=== PATIENT | male | born 1965 | race Caucasian/White ===

== ENCOUNTER 2016-12-27 07:05 | Observation (INO) | payer SELFPAY ==
--- NOTE | 2016-12-27 08:35 | C.PDOC ---
History Of Present Illness 48-year-old male, is brought to the emergency department by EMS with complaints of public intoxication. Patient is unable to provide a Hx due to intoxication. Chief Complaint (Nursing): Substance Abuse History Per: EMS History/Exam Limitations: intoxication Current Symptoms Are (Timing): Still Present Past Medical History Reviewed: Historical Data, Nursing Documentation, Vital Signs Vital Signs: Last Vital Signs Temp Pulse 78 12/27/16 12:30 Resp 20 12/27/16 12:30 BP 130/91 H 12/27/16 12:30 Pulse Ox 98 12/27/16 12:30 Family History: States: Unknown Family Hx - Social History Hx Alcohol Use: Yes Hx Substance Use: No - Immunization History Hx Tetanus Toxoid Vaccination: No Hx Influenza Vaccination: No Hx Pneumococcal Vaccination: No Review Of Systems Review Of Systems: ROS cannot be obtained secondary to pt's inabilty to answer questions. Physical Exam - Physical Exam Appears: Non-toxic, No Acute Distress, Other (Intoxicated. ETOH on breath) Head: Atraumatic, Normacephalic Respiratory: No Accessory Muscle Use Extremity: Normal ROM Neurological/Psych: Oriented x3, Normal Speech ED Course And Treatment O2 Sat by Pulse Oximetry: 100 Medical Decision Making Medical Decision Makinpm: Patient awake and alert. Will discharge with follow up instructions. Disposition - Disposition Disposition: HOME/ ROUTINE Disposition Time: 17:00 Condition: IMPROVED - Clinical Impression Clinical Impression: Alcohol intoxication - Scribe Statement The provider has reviewed the documentation as recorded by the Scribclifton Joel All medical record entries made by the Scribe were at my direction and personally dictated by me. I have reviewed the chart and agree that the record accurately reflects my personal performance of the history, physical exam, medical decision making, and the department course for this patient. I have also personally directed, reviewed, and agree with the discharge instructions and disposition.
[2016-12-27 17:05] VITALS: O2SAT 100
[2016-12-27 17:35] VITALS: BP 125/82; PULSE 74; RESP 18; TEMP 97.4
== END 2016-12-27 17:05 | disposition home or self-care (01) ==
LOC: C.ER 07:05 → C.9OBSV 08:24 → EDBD 08:24
PROVIDERS: ADMIT Emergency Medicine; ATTEND Emergency Medicine
DX: F10.129 Alcohol abuse with intoxication, unspecified (principal)
CPT/HCPCS: 82948; 99284; G0378

== ENCOUNTER 2017-07-22 18:21 | Observation (INO) | payer SELFPAY ==
[2017-07-22 18:28] VITALS: BMI 28.3
[2017-07-22] MEDS ORDERED: Lidocaine 1% Inj (20ml) INFIL ONE (19:30)
[2017-07-22] MEDS ORDERED: Lidocaine 1% Inj (20ml) ONE (19:45)
[2017-07-22] MEDS ORDERED: Tetanus/Diphtheria Toxoids 0.5 ml Syringe IM ONE (19:45)
--- NOTE | 2017-07-22 20:26 | CT ---
EXAM: CT Head Without Intravenous Contrast EXAM DATE/TIME: Exam ordered 07/22/2017 7:28 PM CLINICAL HISTORY: 52 years old, male; Injury or trauma; Fall; Initial encounter; Abrasion; Head, generalized and jaw or chin; Additional info: R/O ich TECHNIQUE: Axial computed tomography images of the head/brain without intravenous contrast. All CT scans at this facility use one or more dose reduction techniques, viz.: automated exposure control; ma/kV adjustment per patient size (including targeted exams where dose is matched to indication; i.e. head); or iterative reconstruction technique. Coronal and sagittal reformatted images were created and reviewed. COMPARISON: No relevant prior studies available. FINDINGS: Brain: A focal area of high density measuring 1.1 x 0.5 x 1 cm is noted in the parafalcine region anteriorly immediately superior to the genu of the corpus callosum. This may represent a small subdural hematoma. Ventricles: Unremarkable. No ventriculomegaly. Bones/joints: Unremarkable. No acute fracture. Soft tissues: Unremarkable. Sinuses: Unremarkable as visualized. No acute sinusitis. Mastoid air cells: Unremarkable as visualized. No mastoid effusion. IMPRESSION: 1. Small parafalcine subdural hematoma Images were attached to this report and are available at [email or web address]
--- NOTE | 2017-07-22 20:34 | CT ---
EXAM: CT Orbits Without Intravenous Contrast EXAM DATE/TIME: Exam ordered 07/22/2017 7:28 PM CLINICAL HISTORY: 52 years old, male; Injury or trauma; Fall; Initial encounter; Abrasion; Jaw; Bilateral; Additional info: R/O ich and FX TECHNIQUE: Axial computed tomography images of the orbits without intravenous contrast. All CT scans at this facility use one or more dose reduction techniques, viz.: automated exposure control; ma/kV adjustment per patient size (including targeted exams where dose is matched to indication; i.e. head); or iterative reconstruction technique. Coronal and sagittal reformatted images were created and reviewed. COMPARISON: No relevant prior studies available. FINDINGS: Orbits: Unremarkable. Sinuses: Unremarkable. No air-fluid levels. Bones/joints: No acute fracture. Soft tissues: There is a soft tissue laceration noted anterior to the mandibular symphysis. Dental: There several missing teeth. There is an air-containing heterogeneous structure noted inside the lower lip anterior to the mandibular alveolar ridge at the level the symphysis. This could represent packing material. Clinical correlation suggested. IMPRESSION: Soft tissue laceration noted over the chin. No fracture. See above.
[2017-07-22 21:23] LABS: BASO # 0.1 K/uL (0.0-0.2); BASO % 1.3 % (0.0-2.0); CHLORIDE 99 mmol/L (98-107); EOS % 0.9 % (0.0-4.0); HEMATOCRIT 35.3 % (35.0-51.0); LYMPH # 1.2 K/uL (1.0-4.3); LYMPH % 30.5 % (20.0-40.0); MEAN CELL VOLUME 92.2 fL (80.0-94.0); MEAN CORPUSCULAR HEMOGLOBIN 31.3 pg (27.0-31.0); MEAN CORPUSCULAR HGB CONC 33.9 g/dL (33.0-37.0); MEAN PLATELET VOLUME 7.6 fL (7.2-11.7); MONO # 0.5 K/uL (0.0-0.8); MONO % 13.8 % (0.0-10.0); NRBC % 0.1 % (0.0-2.0)
[2017-07-22 21:24] LABS: POTASSIUM 3.8 mmol/L (3.6-5.2); SODIUM 136 mmol/L (132-148)
[2017-07-22 21:26] LABS: ALB/GLOB RATIO 1.6 (1.0-2.1); ALKALINE PHOSPHATASE 73 U/L (38-126); AST/SGOT 144 U/L (17-59); BILIRUBIN,TOTAL 0.7 mg/dL (0.2-1.3); CARBON DIOXIDE 24 mmol/L (22-30); GFR AFRICAN-AMERICAN > 60; TOTAL PROTEIN 7.4 g/dL (6.3-8.3)
[2017-07-22 21:27] LABS: ALCOHOL SERUM 59 mg/dl (0-10); ALT/SGPT 227 U/L (21-72); BLOOD UREA NITROGEN 15 mg/dL (9-20); CALCIUM 9.1 mg/dl (8.6-10.4); GLUCOSE,RANDOM 96 mg/dL (75-110)
--- NOTE | 2017-07-22 22:36 | C.PDOC ---
History Of Present Illness 52 y/o male presents to ED for evaluation s/p falling and sustaining laceration to chin. Patient admits to drinking 1/2 pint of Vodka today and does not recall most of event but knows he fell. Patient denies loc, chest pain, sob, vision changes, abdominal pain or any other complaints at this time. Chief Complaint (Nursing): Abnormal Skin Integrity History Per: Patient History/Exam Limitations: no limitations Onset/Duration Of Symptoms: Hrs Current Symptoms Are (Timing): Still Present Past Medical History Reviewed: Historical Data, Nursing Documentation, Vital Signs Vital Signs: Last Vital Signs Temp 97.4 F L 07/22/17 18:28 Pulse 77 07/23/17 02:11 Resp 18 07/23/17 02:11 BP 132/72 07/23/17 02:11 Pulse Ox 95 07/23/17 02:11 - Medical History PMH: Seizures Surgical History: No Surg Hx Family History: States: No Known Family Hx - Social History Hx Alcohol Use: Yes Hx Substance Use: No - Immunization History Hx Tetanus Toxoid Vaccination: No Hx Influenza Vaccination: No Hx Pneumococcal Vaccination: No Review Of Systems Constitutional: Negative for: Fever, Chills Eyes: Negative for: Vision Change Respiratory: Negative for: Cough, Shortness of Breath Gastrointestinal: Negative for: Abdominal Pain Musculoskeletal: Negative for: Back Pain Skin: Negative for: Rash Physical Exam - Physical Exam Appears: Non-toxic, No Acute Distress Skin: Normal Color, Warm, Dry, No Rash Head: Laceration (3cm. No active bleeding ) Eye(s): bilateral: Normal Inspection, PERRL, EOMI Oral Mucosa: Moist Neck: Normal ROM, Supple Back: No CVA Tenderness Extremity: Normal ROM, Capillary Refill (<2 seconds) Neurological/Psych: Oriented x3, Normal Motor, Normal Sensation ED Course And Treatment - Laboratory Results Result Diagrams: 07/23/17 05:56 07/23/17 05:56 O2 Sat by Pulse Oximetry: 98 (RA) Laceration - Laceration Repair chin Wound Length (In cm): 3cm Description Of Wound: Linear Wound Cleansed With: Betadine, Sterile Saline Anesthesia: Lidocaine 1% Wound Examination: Irrigated With Saline Wound Closure: Suture (7) Suture Technique And Material Used: Interrupted, Nylon (5-O) Medical Decision Making Medical Decision Making: [facility] called for CT finding Spoke to Dr. Avelar (Neurosurgeon) and agreed no surgical intervention Recalled [facility] and spoke to radiologist, states Subdural hematoma is seen on series 2 images 19 and 20 , series 601 image 118. Spoke to admit patient to Tele for observation and monitoring Disposition - Disposition Disposition Time: 21:45 Condition: FAIR - Clinical Impression Clinical Impression: Skin laceration, Subdural hematoma - Scribe Statement The provider has reviewed the documentation as recorded by the Khurram Valencia All medical record entries made by the Khurram were at my direction and personally dictated by me. I have reviewed the chart and agree that the record accurately reflects my personal performance of the history, physical exam, medical decision making, and the department course for this patient. I have also personally directed, reviewed, and agree with the discharge instructions and disposition.
--- NOTE | 2017-07-22 23:45 | CP.PCM.HP ---
<Delfina Schultz - Last Filed: 07/23/17 03:24> History of Present Illness - History of Present Illness History of Present Illness: HPI: 52 year old male presents to the ED due to a fall with alcohol intoxication. Patient stated he did not remember falling and hitting his head. Patient stated he did loose consciousness. Patient denies nausea or vomiting. Patient had a laceration on his chin which was sutured prior to seeing him. Patient complains of left hand pain that is made worse by opening and closing hand. Patient was uncooperative to obtain a full review of systems or full medical history. Past Medical History: unobtainable Medications: unobtainable Allergies: unobtainable Past Surgical History: unobtainable Social History: Patient admits to drinking 1/2 pint of vodka but did not elaborate how often. Patient denies tobacco use. Present on Admission - Present on Admission Any Indicators Present on Admission: No Review of Systems - Review of Systems Systems not reviewed;Unavailable: Intoxicated - Musculoskeletal Additional comments: left hand pain Past Patient History - Past Social History Smoking Status: Former Smoker - NEUROLOGICAL Hx Seizures: Yes - PSYCHIATRIC Hx Substance Use: No - SURGICAL HISTORY Hx Surgeries: Yes Other/Comment: Left inguinal hernia sx Meds Allergies/Adverse Reactions: Allergies Allergy/AdvReac Type Severity Reaction Status Date / Time No Known Allergies Allergy Verified 07/22/17 18:31 Physical Exam - Constitutional Appears: Toxic - Head Exam Head Exam: NORMAL INSPECTION, NORMOCEPHALIC. absent: ATRAUMATIC - Eye Exam Eye Exam: EOMI, Normal appearance, PERRL Pupil Exam: NORMAL ACCOMODATION - ENT Exam ENT Exam: Mucous Membranes Moist Additional comments: chin laceration - Respiratory Exam Respiratory Exam: Clear to Auscultation Bilateral, NORMAL BREATHING PATTERN - Cardiovascular Exam Cardiovascular Exam: REGULAR RHYTHM, RRR, +S1, +S2 - GI/Abdominal Exam GI & Abdominal Exam: Normal Bowel Sounds, Soft. absent: Tenderness - Extremities Exam Extremities exam: Positive for: tenderness (left hand was tender - contusion). Negative for: normal inspection (bilateral hands had contusion), pedal edema - Neurological Exam Neurological exam: Alert, Oriented x3 - Psychiatric Exam Psychiatric exam: Agitated - Skin Skin Exam: Abrasion (contusions on bilateral hands ), Dry, Intact, Normal Color , Warm Additional comments: chin lacerations - sutures were clean, dry and intact Results - Vital Signs Recent Vital Signs: Last Vital Signs Temp 97.4 F L 07/22/17 18:28 Pulse 77 07/22/17 22:21 Resp 18 07/22/17 22:21 BP 146/94 H 07/22/17 22:21 Pulse Ox 98 07/22/17 22:36 - Labs Result Diagrams: 07/22/17 21:05 07/22/17 21:05 Labs: Laboratory Results - last 24 hr 07/22/17 07/22/17 07/22/17 21:05 21:05 21:05 WBC 4.0 L RBC 3.83 L Hgb 12.0 Hct 35.3 MCV 92.2 MCH 31.3 H MCHC 33.9 RDW 18.0 H Plt Count 129 L MPV 7.6 Neut % (Auto) 53.5 Lymph % (Auto) 30.5 Gaston % (Auto) 13.8 H Eos % (Auto) 0.9 Baso % (Auto) 1.3 Neut # 2.1 Lymph # 1.2 Gaston # 0.5 Eos # 0.0 Baso # 0.1 Differential Comment PT 11.1 INR 1.0 APTT 30 Sodium 136 Potassium 3.8 Chloride 99 Carbon Dioxide 24 Anion Gap 17 BUN 15 Creatinine 0.7 L Est GFR ( Amer) > 60 Est GFR (Non-Af Amer) > 60 Random Glucose 96 Calcium 9.1 Total Bilirubin 0.7 AST 144 H ALT 227 H Alkaline Phosphatase 73 Total Protein 7.4 Albumin 4.6 Globulin 2.8 Albumin/Globulin Ratio 1.6 Alcohol, Quantitative 59 H Blood Type Antibody Screen 07/22/17 21:05 WBC RBC Hgb Hct MCV MCH MCHC RDW Plt Count MPV Neut % (Auto) Lymph % (Auto) Gaston % (Auto) Eos % (Auto) Baso % (Auto) Neut # Lymph # Gaston # Eos # Baso # Differential Comment PT INR APTT Sodium Potassium Chloride Carbon Dioxide Anion Gap BUN Creatinine Est GFR ( Amer) Est GFR (Non-Af Amer) Random Glucose Calcium Total Bilirubin AST ALT Alkaline Phosphatase Total Protein Albumin Globulin Albumin/Globulin Ratio Alcohol, Quantitative Blood Type B NEGATIVE Antibody Screen Negative Assessment & Plan - Assessment and Plan (Free Text) Assessment: 1.) Head Trauma s/p Fall - r/o subdural hematoma - Head CT: Small parafalcine subdural hematoma - was read by 2 radiologists - f/u repeat MRI to confirm subdural hematoma - Orbit CT: Soft tissue laceration noted over the chin. No fracture. - Consult Neuro Surgery: Dr. Avelar --> help appreciated - Neuro Checks 2.) Alcohol intoxication - [facility] protocol - Lorazepam taper for alcohol withdrawal - Alcohol Serum: 59 - NPO - N/S w@75cc/hr with multivitamins, B1, folic acid - f/u b12, thiamine, folic acid 3.) Elevated Liver Enzymes possibly secondary to Alcohol Abuse - AST/ALT: 144/277 - Monitor 4.) Left Hand pain - contusion s/p fall - f/u with x-ray of hand 5.) Prophylaxis - VTE contraindication - due to subdural hematoma - Pepcid 20mg daily - SCDs Case discussed with Dr. Adriana Schultz PGY-1 <Carroll Wright - Last Filed: 07/23/17 04:20> Results - Vital Signs Recent Vital Signs: Last Vital Signs Temp 97.4 F L 07/22/17 18:28 Pulse 77 07/23/17 02:11 Resp 18 07/23/17 02:11 BP 132/72 07/23/17 02:11 Pulse Ox 95 07/23/17 02:11 - Labs Result Diagrams: 07/22/17 21:05 07/22/17 21:05 Labs: Laboratory Results - last 24 hr 07/22/17 07/22/17 07/22/17 21:05 21:05 21:05 WBC 4.0 L RBC 3.83 L Hgb 12.0 Hct 35.3 MCV 92.2 MCH 31.3 H MCHC 33.9 RDW 18.0 H Plt Count 129 L MPV 7.6 Neut % (Auto) 53.5 Lymph % (Auto) 30.5 Gaston % (Auto) 13.8 H Eos % (Auto) 0.9 Baso % (Auto) 1.3 Neut # 2.1 Lymph # 1.2 Gaston # 0.5 Eos # 0.0 Baso # 0.1 Differential Comment PT 11.1 INR 1.0 APTT 30 Sodium 136 Potassium 3.8 Chloride 99 Carbon Dioxide 24 Anion Gap 17 BUN 15 Creatinine 0.7 L Est GFR ( Amer) > 60 Est GFR (Non-Af Amer) > 60 Random Glucose 96 Calcium 9.1 Total Bilirubin 0.7 AST 144 H ALT 227 H Alkaline Phosphatase 73 Total Protein 7.4 Albumin 4.6 Globulin 2.8 Albumin/Globulin Ratio 1.6 Alcohol, Quantitative 59 H Blood Type Antibody Screen 07/22/17 21:05 WBC RBC Hgb Hct MCV MCH MCHC RDW Plt Count MPV Neut % (Auto) Lymph % (Auto) Gaston % (Auto) Eos % (Auto) Baso % (Auto) Neut # Lymph # Gaston # Eos # Baso # Differential Comment PT INR APTT Sodium Potassium Chloride Carbon Dioxide Anion Gap BUN Creatinine Est GFR ( Amer) Est GFR (Non-Af Amer) Random Glucose Calcium Total Bilirubin AST ALT Alkaline Phosphatase Total Protein Albumin Globulin Albumin/Globulin Ratio Alcohol, Quantitative Blood Type B NEGATIVE Antibody Screen Negative Assessment & Plan - Date & Time Date: 07/23/17 (I have seen and examined the patient. I agree with the findings and plan of care as documented by Dr. Schultz. Patient s/p head trauma from fall. Subdural hematoma noted on CT head. Dr Avelar called by ED. MRI brain in . Neurochecks. [facility] protocol for alcohol abuse. Hold for sedation. Monitor for acute changes.) Time: 04:18 Attending/Attestation - Attestation I have personally seen and examined this patient.: Yes I have fully participated in the care of the patient.: Yes I have reviewed all pertinent clinical information: Yes
[2017-07-23] MEDS ORDERED: Multivitamin (MVI) 10 ML, Thiamine 100 MG, Folic Acid 1 MG in Sodium Chloride 0.9% 1,00... IV ONE (00:25)
[2017-07-23 06:02] LABS: BASO # 0.1 K/uL (0.0-0.2); BASO % 1.5 % (0.0-2.0); EOS # 0.1 K/uL (0.0-0.7); EOS % 1.1 % (0.0-4.0); HEMATOCRIT 33.5 % (35.0-51.0); LYMPH # 1.5 K/uL (1.0-4.3); LYMPH % 30.9 % (20.0-40.0); MEAN CELL VOLUME 91.8 fL (80.0-94.0); MEAN CORPUSCULAR HEMOGLOBIN 31.3 pg (27.0-31.0); MEAN CORPUSCULAR HGB CONC 34.1 g/dL (33.0-37.0); MEAN PLATELET VOLUME 7.5 fL (7.2-11.7); MONO # 0.9 K/uL (0.0-0.8); MONO % 19.6 % (0.0-10.0); NRBC % 0.1 % (0.0-2.0); RED CELL DISTRIBUTION WIDTH 17.8 % (11.5-14.5); WHITE BLOOD COUNT 4.8 K/uL (4.8-10.8)
[2017-07-23 06:19] LABS: CHLORIDE 102 mmol/L (98-107)
[2017-07-23 06:20] LABS: SODIUM 135 mmol/L (132-148)
[2017-07-23 06:21] LABS: POTASSIUM 3.6 mmol/L (3.6-5.2)
[2017-07-23 06:23] LABS: ALB/GLOB RATIO 1.1 (1.0-2.1); ALKALINE PHOSPHATASE 64 U/L (38-126); ALT/SGPT 198 U/L (21-72); AST/SGOT 110 U/L (17-59); BILIRUBIN,TOTAL 0.7 mg/dL (0.2-1.3); BLOOD UREA NITROGEN 12 mg/dL (9-20); CARBON DIOXIDE 23 mmol/L (22-30); GFR AFRICAN-AMERICAN > 60; GLUCOSE,RANDOM 94 mg/dL (75-110); PHOSPHOROUS 3.6 mg/dL (2.5-4.5); TOTAL PROTEIN 7.4 g/dL (6.3-8.3)
[2017-07-23 06:24] LABS: CALCIUM 8.8 mg/dl (8.6-10.4); MAGNESIUM 1.8 mg/dL (1.6-2.3)
[2017-07-23 07:31] LABS: FOLATE > 20.0 ng/mL
[2017-07-23 12:04] VITALS: TEMP 97.8
--- NOTE | 2017-07-23 13:47 | MRI ---
PROCEDURE: MRI of the brain dated 07/23/2017 HISTORY: Repeat; r/o subdural hematoma COMPARISON: Comparison made with CT scan brain dated 07/18/2017. TECHNIQUE: Multiplanar, multisequence MR images of the brain were obtained without intravenous contrast enhancement. FINDINGS: HEMORRHAGE: No acute parenchymal, subarachnoid or extra-axial hemorrhage. . No evidence of hemosiderin deposition identified on gradient echo weighted sequence. DWI: No evidence of an acute or early subacute infarction seen on diffusion imaging. BRAIN PARENCHYMA: Some very minimal prolonged T2 signal changes seen within the periventricular white matter which may represent a combination of some FLAIR related artifact and minimal chronic small vessel disease. Additionally, there are a several small focal areas of increased T2 signal also seen scattered about the subcortical white matter both frontal lobes the which probably represent chronic lacunar-type infarcts. . VENTRICLES: Moderate central volume loss. CRANIUM: Unremarkable. ORBITS: Orbits and contents grossly unremarkable PARANASAL SINUSES/MASTOIDS: Clear VASCULAR SYSTEM: Visualized major vascular flow voids at skull base are patent. . OTHER FINDINGS: None. IMPRESSION: No acute intracranial hemorrhage. Some very minimal prolonged T2 signal changes seen within the periventricular white matter which may represent a combination of some FLAIR related artifact and minimal chronic small vessel disease. Additionally, there are a several small focal areas of increased T2 signal also seen scattered about the subcortical white matter both frontal lobes the which probably represent chronic lacunar-type infarcts. .
--- NOTE | 2017-07-23 14:48 | CP.PCM.CON ---
History of Present Illness - History of Present Illness History of Present Illness: asked by ER to review CT apeasred neg to me read by radiology as small falcian sdh -do not believe is present in any case of no clinical significance no NRS involvement indicated - DC from my perspective Past Patient History - Past Social History Smoking Status: Former Smoker - NEUROLOGICAL Hx Seizures: Yes - PSYCHIATRIC Hx Substance Use: No - SURGICAL HISTORY Hx Surgeries: Yes Other/Comment: Left inguinal hernia sx Meds Allergies/Adverse Reactions: Allergies Allergy/AdvReac Type Severity Reaction Status Date / Time No Known Allergies Allergy Verified 07/22/17 18:31 - Medications Medications: Current Medications Famotidine (Pepcid) 20 mg PO DAILY ANNETTE Last Admin: 07/23/17 10:02 Dose: 20 mg Lorazepam (Ativan) 2 mg IVP Q8H PRN; Taper PRN Reason: Symptoms of alcohol withdrawl Stop: 07/28/17 00:23 Results - Vital Signs Recent Vital Signs: Last Vital Signs Temp 97.8 F 07/23/17 12:03 Pulse 62 07/23/17 12:03 Resp 16 07/23/17 12:03 BP 143/93 H 07/23/17 12:03 Pulse Ox 97 07/23/17 12:03 - Labs Result Diagrams: 07/23/17 05:56 07/23/17 05:56 Labs: Laboratory Results - last 24 hr 07/22/17 07/22/17 07/22/17 21:05 21:05 21:05 WBC 4.0 L RBC 3.83 L Hgb 12.0 Hct 35.3 MCV 92.2 MCH 31.3 H MCHC 33.9 RDW 18.0 H Plt Count 129 L MPV 7.6 Neut % (Auto) 53.5 Lymph % (Auto) 30.5 Carroll % (Auto) 13.8 H Eos % (Auto) 0.9 Baso % (Auto) 1.3 Neut # 2.1 Lymph # 1.2 Carroll # 0.5 Eos # 0.0 Baso # 0.1 Differential Comment PT 11.1 INR 1.0 APTT 30 Sodium 136 Potassium 3.8 Chloride 99 Carbon Dioxide 24 Anion Gap 17 BUN 15 Creatinine 0.7 L Est GFR ( Amer) > 60 Est GFR (Non-Af Amer) > 60 POC Glucose (mg/dL) Random Glucose 96 Calcium 9.1 Phosphorus Magnesium Total Bilirubin 0.7 AST 144 H ALT 227 H Alkaline Phosphatase 73 Total Protein 7.4 Albumin 4.6 Globulin 2.8 Albumin/Globulin Ratio 1.6 Vitamin B12 Folate Alcohol, Quantitative 59 H Blood Type Antibody Screen 07/22/17 07/23/17 07/23/17 21:05 05:56 05:56 WBC 4.8 RBC 3.65 L Hgb 11.4 L Hct 33.5 L MCV 91.8 MCH 31.3 H MCHC 34.1 RDW 17.8 H Plt Count 126 L MPV 7.5 Neut % (Auto) 46.9 L Lymph % (Auto) 30.9 Carroll % (Auto) 19.6 H Eos % (Auto) 1.1 Baso % (Auto) 1.5 Neut # 2.3 Lymph # 1.5 Carroll # 0.9 H Eos # 0.1 Baso # 0.1 Differential Comment PT INR APTT Sodium 135 Potassium 3.6 Chloride 102 Carbon Dioxide 23 Anion Gap 14 BUN 12 Creatinine 0.6 L Est GFR ( Amer) > 60 Est GFR (Non-Af Amer) > 60 POC Glucose (mg/dL) Random Glucose 94 Calcium 8.8 Phosphorus 3.6 Magnesium 1.8 Total Bilirubin 0.7 AST 110 H D ALT 198 H Alkaline Phosphatase 64 Total Protein 7.4 Albumin 3.8 Globulin 3.6 Albumin/Globulin Ratio 1.1 Vitamin B12 401 Folate > 20.0 Alcohol, Quantitative Blood Type B NEGATIVE Antibody Screen Negative 07/23/17 08:24 WBC RBC Hgb Hct MCV MCH MCHC RDW Plt Count MPV Neut % (Auto) Lymph % (Auto) Carroll % (Auto) Eos % (Auto) Baso % (Auto) Neut # Lymph # Carroll # Eos # Baso # Differential Comment PT INR APTT Sodium Potassium Chloride Carbon Dioxide Anion Gap BUN Creatinine Est GFR ( Amer) Est GFR (Non-Af Amer) POC Glucose (mg/dL) 108 Random Glucose Calcium Phosphorus Magnesium Total Bilirubin AST ALT Alkaline Phosphatase Total Protein Albumin Globulin Albumin/Globulin Ratio Vitamin B12 Folate Alcohol, Quantitative Blood Type Antibody Screen
--- NOTE | 2017-07-23 16:35 | RAD ---
PROCEDURE: Left Hand Radiographs. HISTORY: Status post fall with pain. COMPARISON: None. FINDINGS: BONES: Study reveals what is felt to represent a relatively nondisplaced comminuted intra-articular fracture of the distal radius. . There is surrounding soft tissue swelling JOINTS: Mild degenerative changes DIP joint left thumb with small osteophyte seen arising from the dorsal aspect of the bases of the distal phalanx minimal degenerative changes 1st MCP joint. SOFT TISSUES: . As above. No evidence subcutaneous air or opaque foreign body. OTHER FINDINGS: None. IMPRESSION: Relatively nondisplaced comminuted intra-articular fracture of the distal radius with mild surrounding soft tissue swelling. Mild DJD as detailed above. Note this report was placed in PA review folder for followup
[2017-07-23] MEDS ORDERED: Influenza Vaccine 60 mcg/0.5 mL SYR (4YR UP) IM ONE (16:55)
[2017-07-23 17:28] VITALS: BP 153/98
[2017-07-23 17:29] VITALS: PULSE 79; RESP 18; O2SAT 100
--- NOTE | 2017-07-23 18:35 | CARD ---
APPROVED REPORT EKG Measurement Heart [id number] MA [id number] <Conclusion> Normal sinus rhythm Normal ECG
--- NOTE | 2017-07-23 22:21 | CP.PCM.DIS ---
<Jose Ramon Hamilton - Last Filed: 07/26/17 20:41> Provider - Provider Date of Admission: 07/22/17 21:45 Attending physician: Carroll Wright MD Consults: NeuroSurg - Rosio Time Spent in preparation of Discharge (in minutes): 35 Diagnosis - Discharge Diagnosis (1) Alcohol intoxication Status: Resolved (2) Skin laceration Status: Acute Hospital Course - Lab Results Lab Results: Most Recent Lab Values WBC 4.8 K/uL (4.8-10.8) 07/23/17 05:56 RBC 3.65 Mil/uL (4.40-5.90) L 07/23/17 05:56 Hgb 11.4 g/dL (12.0-18.0) L 07/23/17 05:56 Hct 33.5 % (35.0-51.0) L 07/23/17 05:56 MCV 91.8 fL (80.0-94.0) 07/23/17 05:56 MCH 31.3 pg (27.0-31.0) H 07/23/17 05:56 MCHC 34.1 g/dL (33.0-37.0) 07/23/17 05:56 RDW 17.8 % (11.5-14.5) H 07/23/17 05:56 Plt Count 126 K/uL (130-400) L 07/23/17 05:56 MPV 7.5 fL (7.2-11.7) 07/23/17 05:56 Neut % (Auto) 46.9 % (50.0-75.0) L 07/23/17 05:56 Lymph % (Auto) 30.9 % (20.0-40.0) 07/23/17 05:56 [place] % (Auto) 19.6 % (0.0-10.0) H 07/23/17 05:56 Eos % (Auto) 1.1 % (0.0-4.0) 07/23/17 05:56 Baso % (Auto) 1.5 % (0.0-2.0) 07/23/17 05:56 Neut # 2.3 K/uL (1.8-7.0) 07/23/17 05:56 Lymph # 1.5 K/uL (1.0-4.3) 07/23/17 05:56 [place] # 0.9 K/uL (0.0-0.8) H 07/23/17 05:56 Eos # 0.1 K/uL (0.0-0.7) 07/23/17 05:56 Baso # 0.1 K/uL (0.0-0.2) 07/23/17 05:56 Differential Comment 07/22/17 21:05 PT 11.1 SECONDS (9.7-12.2) 07/22/17 21:05 INR 1.0 07/22/17 21:05 APTT 30 SECONDS (21-34) 07/22/17 21:05 Sodium 135 mmol/L (132-148) 07/23/17 05:56 Potassium 3.6 mmol/L (3.6-5.2) 07/23/17 05:56 Chloride 102 mmol/L (98-107) 07/23/17 05:56 Carbon Dioxide 23 mmol/L (22-30) 07/23/17 05:56 Anion Gap 14 (10-20) 07/23/17 05:56 BUN 12 mg/dL (9-20) 07/23/17 05:56 Creatinine 0.6 mg/dL (0.8-1.5) L 07/23/17 05:56 Est GFR ( Amer) > 60 07/23/17 05:56 Est GFR (Non-Af Amer) > 60 07/23/17 05:56 POC Glucose (mg/dL) 108 mg/dL (65-110) 07/23/17 08:24 Random Glucose 94 mg/dL (75-110) 07/23/17 05:56 Calcium 8.8 mg/dl (8.6-10.4) 07/23/17 05:56 Phosphorus 3.6 mg/dL (2.5-4.5) 07/23/17 05:56 Magnesium 1.8 mg/dL (1.6-2.3) 07/23/17 05:56 Total Bilirubin 0.7 mg/dL (0.2-1.3) 07/23/17 05:56 AST 110 U/L (17-59) H D 07/23/17 05:56 ALT 198 U/L (21-72) H 07/23/17 05:56 Alkaline Phosphatase 64 U/L (38-126) 07/23/17 05:56 Total Protein 7.4 g/dL (6.3-8.3) 07/23/17 05:56 Albumin 3.8 g/dL (3.5-5.0) 07/23/17 05:56 Globulin 3.6 gm/dL (2.2-3.9) 07/23/17 05:56 Albumin/Globulin Ratio 1.1 (1.0-2.1) 07/23/17 05:56 Vitamin B12 401 pg/mL (239-931) 07/23/17 05:56 Folate > 20.0 ng/mL 07/23/17 05:56 Alcohol, Quantitative 59 mg/dl (0-10) H 07/22/17 21:05 Blood Type B NEGATIVE 07/22/17 21:05 Antibody Screen Negative 07/22/17 21:05 - Hospital Course Hospital Course: 52 year old male with PMhx significant for ETOH admitted for evalution and treatment of fall secondary to alochol intoxication. Patient also presented with chin laceration (confirmed with Orbit CT) and left hand pain. Head CT originally read small parafalcine subdural hematoma. A second radiologist disagreed with that finding. Neurosurgery was consulted for a 2nd opinion and also disagreed with the diagnoses of subdural hematoma. MRI showed chronic changes but no acute disease. Hand X-ray, pending read. Patient will be called with results of hand x-ray. Patient was put on CIWA protocol, Ativan taper, vitamin theray, and made NPO for alcohol intoxication. AST/ALT were elevated on admission and began to downtrend. Folate and B12 were within normal limits. Alcohol level was 59 on admission. Patient showed no signs of withdrawal at the time of discharge and is deemed stable for discharge by medical team and by neurosurgery. Patient is to follow up with his PMD within 1 week. He is also to follow up at the [facility] or E.D for suture removal and to repeat LFT's. Patient is agreeable to plan Patient discussed with Attending Jose Ramon Hamilton PGY-1 - Date & Time of H&P Date of H&P: 07/23/17 Time of H&P: 13:00 Discharge Exam - Head Exam Head Exam: NORMAL INSPECTION, NORMOCEPHALIC - Additional Findings Additional findings: - Constitutional Appears: Non-Toxic, No Acute distress, - Head Exam Head Exam: NORMAL INSPECTION, NORMOCEPHALIC. absent: ATRAUMATIC - Eye Exam Eye Exam: EOMI, Normal appearance, PERRL Pupil Exam: NORMAL ACCOMODATION - ENT Exam ENT Exam: Mucous Membranes Moist Additional comments: chin laceration - Respiratory Exam Respiratory Exam: Clear to Auscultation Bilateral, NORMAL BREATHING PATTERN - Cardiovascular Exam Cardiovascular Exam: REGULAR RHYTHM, RRR, +S1, +S2 - GI/Abdominal Exam GI & Abdominal Exam: Normal Bowel Sounds, Soft. absent: Tenderness - Extremities Exam Extremities exam: Positive for: tenderness (left hand was tender - contusion). Negative for: normal inspection (bilateral hands had contusion), pedal edema - Neurological Exam Neurological exam: Alert, Oriented x3 - Psychiatric Exam Psychiatric exam: Agitated - Skin Skin Exam: Abrasion (contusions on bilateral hands ), Dry, Intact, Normal Color , Warm Additional comments: chin lacerations - sutures were clean, dry and intact Discharge Plan - Follow Up Plan Condition: FAIR Disposition: HOME/ ROUTINE Instructions: Cirrhosis (ED), Care For Your Stitches (ED), Abuse of Alcohol (ED ) Additional Instructions: FOLLOW UP WITH [facility] OR EMERGENCY DEPARTMENT FOR SUTURE REMOVAL AND REPEAT LIVER ENZYMES BLOOD WORK IN 1 WEEK. <Lauren Poe V - Last Filed: 07/27/17 17:59> Provider - Provider Date of Admission: 07/22/17 21:45 Attending physician: Carroll Wright MD Hospital Course - Lab Results Lab Results: Most Recent Lab Values WBC 4.8 K/uL (4.8-10.8) 07/23/17 05:56 RBC 3.65 Mil/uL (4.40-5.90) L 07/23/17 05:56 Hgb 11.4 g/dL (12.0-18.0) L 07/23/17 05:56 Hct 33.5 % (35.0-51.0) L 07/23/17 05:56 MCV 91.8 fL (80.0-94.0) 07/23/17 05:56 MCH 31.3 pg (27.0-31.0) H 07/23/17 05:56 MCHC 34.1 g/dL (33.0-37.0) 07/23/17 05:56 RDW 17.8 % (11.5-14.5) H 07/23/17 05:56 Plt Count 126 K/uL (130-400) L 07/23/17 05:56 MPV 7.5 fL (7.2-11.7) 07/23/17 05:56 Neut % (Auto) 46.9 % (50.0-75.0) L 07/23/17 05:56 Lymph % (Auto) 30.9 % (20.0-40.0) 07/23/17 05:56 [place] % (Auto) 19.6 % (0.0-10.0) H 07/23/17 05:56 Eos % (Auto) 1.1 % (0.0-4.0) 07/23/17 05:56 Baso % (Auto) 1.5 % (0.0-2.0) 07/23/17 05:56 Neut # 2.3 K/uL (1.8-7.0) 07/23/17 05:56 Lymph # 1.5 K/uL (1.0-4.3) 07/23/17 05:56 [place] # 0.9 K/uL (0.0-0.8) H 07/23/17 05:56 Eos # 0.1 K/uL (0.0-0.7) 07/23/17 05:56 Baso # 0.1 K/uL (0.0-0.2) 07/23/17 05:56 Differential Comment 07/22/17 21:05 PT 11.1 SECONDS (9.7-12.2) 07/22/17 21:05 INR 1.0 07/22/17 21:05 APTT 30 SECONDS (21-34) 07/22/17 21:05 Sodium 135 mmol/L (132-148) 07/23/17 05:56 Potassium 3.6 mmol/L (3.6-5.2) 07/23/17 05:56 Chloride 102 mmol/L (98-107) 07/23/17 05:56 Carbon Dioxide 23 mmol/L (22-30) 07/23/17 05:56 Anion Gap 14 (10-20) 07/23/17 05:56 BUN 12 mg/dL (9-20) 07/23/17 05:56 Creatinine 0.6 mg/dL (0.8-1.5) L 07/23/17 05:56 Est GFR ( Amer) > 60 07/23/17 05:56 Est GFR (Non-Af Amer) > 60 07/23/17 05:56 POC Glucose (mg/dL) 108 mg/dL (65-110) 07/23/17 08:24 Random Glucose 94 mg/dL (75-110) 07/23/17 05:56 Calcium 8.8 mg/dl (8.6-10.4) 07/23/17 05:56 Phosphorus 3.6 mg/dL (2.5-4.5) 07/23/17 05:56 Magnesium 1.8 mg/dL (1.6-2.3) 07/23/17 05:56 Total Bilirubin 0.7 mg/dL (0.2-1.3) 07/23/17 05:56 AST 110 U/L (17-59) H D 07/23/17 05:56 ALT 198 U/L (21-72) H 07/23/17 05:56 Alkaline Phosphatase 64 U/L (38-126) 07/23/17 05:56 Total Protein 7.4 g/dL (6.3-8.3) 07/23/17 05:56 Albumin 3.8 g/dL (3.5-5.0) 07/23/17 05:56 Globulin 3.6 gm/dL (2.2-3.9) 07/23/17 05:56 Albumin/Globulin Ratio 1.1 (1.0-2.1) 07/23/17 05:56 Vitamin B12 401 pg/mL (239-931) 07/23/17 05:56 Folate > 20.0 ng/mL 07/23/17 05:56 Alcohol, Quantitative 59 mg/dl (0-10) H 07/22/17 21:05 Blood Type B NEGATIVE 07/22/17 21:05 Antibody Screen Negative 07/22/17 21:05 Attending/Attestation - Attestation I have personally seen and examined this patient.: Yes I have fully participated in the care of the patient.: Yes I have reviewed all pertinent clinical information, including history, physical exam and plan: Yes Notes (Text): This is late computer entry for 07/23/17. Patient seen in Bed 3 in the Emergency Room on 07/23/17 awaiting bed for the floors. Patient seen, standing upright, conversant, speaks Romanian. Patient denies acute complaints. Denies headache. Patient's left hand is visibly swollen. Note : patient's peripheral IV line is the same extremity as his hand swelling. Patient ordered for dose of Lasix IV to reduce swelling. Brain MRI completed (): no acute intracranial hemorrhage. Minimal prolonged T2 signal changes within the periventricular white matter mix of af artifact and also represent chronic lacunar-type infarcts. Per neurosurgery, patient is stable for discharge from their standpoint. Hand xray report not at time of discharge. I spoke with the patient on 07/25/17 in regards to hand xray result and advised to follow-up nearest hospital/urgent care for further evaluation and possible evaluation by hand surgeon noted in my progress note. Patient is not in acute withdrawal from alcohol. AAAOX3, no acute distress. no tremors. No hallucinations. Discharge order and discharge instructions discussed with patient and discussed with patient's nurse. Patient recommended to follow-up within a week for suture laceration over the chin and check liver function tests. Patient recommended further evaluation of hand given result; called on 07/25 at number provided with patient's chart. This is a summary of patient's hospitalization. Please see EMR for further orders. Discharge diagnoses: 1. s/p Fall-->ruled out subdural hematoma * Head CT: Small parafalcine subdural hematoma - was read by 2 radiologists on admission * Per neurosurgery, patient is stable for discharge. * follow-up brain MRI: no acute intracranial hemorrhage. Minimal chronic small vessel disease. Chronic lacunar type-infarcts (official report in the chart) * Aspirin held on admission given possible subdural infarcts on CT scan, which were ruled out. * Held statin secondary to transaminitis * Orbit CT: Soft tissue laceration noted over the chin. No fracture. * Sutures over the chin-->clean/dry/intact * Recommended to follow-up in the ED or in the [facility] for suture removal * Consult Neuro Surgery: Dr. Avelar --> help appreciated * Stable from their perspective for discharge 2.) Alcohol intoxication-->.resolved * AAO X3, NAD, no tremors, no halluciations, seen standing upright, articulatory * No history of withdrawal symptoms per patient 3. Skin Laceration--Stable * Orbit CT: Soft tissue laceration noted over the chin. No fracture. * Sutures over the chin-->clean/dry/intact * Recommended to follow-up in the ED or in the [facility] for suture removal within a week 4.) Elevated Liver Enzymes possibly secondary to Alcohol Use-->chronic * Elevated on admission-->AST/ALT: 144/277 * Will need repeat LFTS within one week to see if resolves 5.) Left Hand pain - contusion s/p fall-->acute * f/u with x-ray of hand-->official report pending at time of discharge * Called back patient on 07/25/17 given the result, to be evaluated at the nearest hospital/urgent care-->patient understands (see progress note 07/25/17) 6.) Prophylaxis * VTE contraindication - due to suspicion of subdural hematoma * Pepcid 20mg daily * SCDs * Ambulatory
--- NOTE | 2017-07-25 17:08 | CP.PCM.PN ---
Subjective - Date & Time of Evaluation Date of Evaluation: 07/25/17 Time of Evaluation: 17:00 - Subjective Subjective: I contacted Bassam Leavitt via telephone (Home: ) regarding hand xray result which was not available to me at time discharge., in regards nondispaced comminuted intra-articular fracture of the distal radius with mild surrounding soft tissue swelling. Recommended to the patient to get his hand evaluated at nearest hospital or urgent care center given this result. Patient reports the nearest hospital is [facility]. He reports he will go get it evaluated Objective - Vital Signs/Intake and Output Vital Signs (last 24 hours): Temp Pulse Resp BP Pulse Ox 97.8 F 79 18 153/98 H 100 07/23/17 12:03 07/23/17 17:28 07/23/17 17:28 07/23/17 17:28 07/23/17 17:28 - Labs Labs: 07/23/17 05:56 07/23/17 05:56 PT 11.1 SECONDS (9.7-12.2) 07/22/17 21:05 INR 1.0 07/22/17 21:05 APTT 30 SECONDS (21-34) 07/22/17 21:05
== END 2017-07-23 18:00 | disposition home or self-care (01) ==
LOC: C.ER 18:21 → C.9E 21:45 → C.6T 07-23 17:44 → C.9E 07-23 18:17
PROVIDERS: ADMIT Family Medicine; ATTEND Family Medicine
DX: F10.129 Alcohol abuse with intoxication, unspecified (principal); S01.81XA Laceration without foreign body of other part of head, initial encounter; K40.90 Unilateral inguinal hernia, without obstruction or gangrene, not specified as recurrent; R74.8 Abnormal levels of other serum enzymes; S52.572A Other intraarticular fracture of lower end of left radius, initial encounter for closed fracture; W19.XXXA Unspecified fall, initial encounter; Y90.2 Blood alcohol level of 40-59 mg/100 ml
CPT/HCPCS: 12013; 70450; 70480; 70551; 73120; 80053; 82607; 82746; 82948; 83735; 84100; 84425; 85025; 85610; 85730; 86850; 86900; 90471; 90715; 93005; 96374; 99285; G0378; G0480; J1940; J3411; J7040

== ENCOUNTER 2017-08-10 14:12 | Inpatient (IN) | payer SELFPAY ==
[2017-08-10 14:58] VITALS: BMI 23.4
--- NOTE | 2017-08-10 15:08 | C.PDOC ---
History Of Present Illness 52 year old male, with history of alcohol abuse, is brought to the ED by EMS for evaluation of dizziness, chest pain, and headache which began yesterday. Patient states he drinks around 1 pint of vodka daily and his last drink was 2 days ago. Patient had one episode of vomiting yesterday and currently feels nauseous. Patient denies suicidal/homicidal ideation and has no other complaints at this time. Time Seen by Provider: 08/10/17 15:00 Chief Complaint (Nursing): Chest Pain History Per: Patient History/Exam Limitations: no limitations Onset/Duration Of Symptoms: Hrs Current Symptoms Are (Timing): Still Present Additional History Per: Patient, Prior Records (Patient was seen in ED on 07/22 after he was brought in by EMS for evaluation for a fall and alcohol intoxication. Patient was scanned and found to have a subdural bleed and left wrist fracture. Patient was discharged on 07/23. ) Past Medical History Reviewed: Historical Data, Nursing Documentation, Vital Signs Vital Signs: Last Vital Signs Temp 99.4 F 08/10/17 16:11 Pulse 75 08/10/17 16:11 Resp 17 08/10/17 16:11 BP 147/87 08/10/17 16:11 Pulse Ox 96 08/10/17 17:16 - Medical History PMH: HTN, Paranoia Surgical History: Hernia Repair Family History: States: Unknown Family Hx - Social History Hx Alcohol Use: Yes Hx Substance Use: No - Immunization History Hx Tetanus Toxoid Vaccination: No Hx Influenza Vaccination: Yes Hx Pneumococcal Vaccination: No Review Of Systems Cardiovascular: Positive for: Chest Pain Gastrointestinal: Positive for: Nausea, Vomiting Musculoskeletal: Positive for: Leg Pain (right), Other (left wrist pain ) Neurological: Positive for: Headache, Dizziness Psych: Positive for: Withdrawal (alcohol ). Negative for: Suicidal ideation Physical Exam - Physical Exam Appears: Non-toxic, No Acute Distress Skin: Normal Color, Warm, Dry, Ecchymosis (scattered lesions to bilateral arms ) , Other (hematoma with ecchymosis to right lower leg, proximal to knee ) Head: Atraumatic, Normacephalic Eye(s): bilateral: Normal Inspection Oral Mucosa: Moist Neck: Supple Chest: Symmetrical, No Deformity, No Tenderness Cardiovascular: Rhythm Regular, No Murmur Respiratory: Normal Breath Sounds, No Rales, No Rhonchi, No Wheezing Gastrointestinal/Abdominal: Soft, No Tenderness, No Guarding, No Rebound Extremity: Tenderness (left wrist ), Capillary Refill (less than 2 seconds ), Swelling (left wrist ) Pulses: Left Dorsalis Pedis: Normal, Right Dorsalis Pedis: Normal Neurological/Psych: Oriented x3, Normal Speech, Other (minor tremors noted ) Gait: Steady ED Course And Treatment - Laboratory Results Result Diagrams: 08/10/17 17:31 08/10/17 15:28 Lab Interpretation: Abnormal ECG: Interpreted By Me, Viewed By Me ECG Rhythm: Sinus Rhythm Interpretation Of ECG: Normal Sinus Rhythm with rate 78bpm. Slight left axis deviation. Rate From EC O2 Sat by Pulse Oximetry: 96 (on RA) Pulse Ox Interpretation: Normal - Other Rad wrist XR X-Ray: Interpreted by Me, Viewed By Me, Read By Radiologist Interpretation: PROCEDURE: Left Wrist Radiographs. . HISTORY: pain s.p fall. COMPARISON: None. FINDINGS: BONES: The trabecular markings appear prominent in the distal radial metaphysis to epiphysis. A nondisplaced trabecular fracture here is questioned. Gross cortical fracture medial or lateral is appreciated. There is also a relative radiolucency in the distal radial diaphysis without endosteal scalloping or cortical interruption is noted on the oblique view. Its significance is unclear focal osteopenia versus an intra osseous focal marrow lesion here indeterminate are considerations. JOINTS : . No dislocation. SOFT TISSUES: Normal. OTHER FINDINGS: None. IMPRESSION : The trabecular markings of the distal radius concerning for a nondisplaced trabecular fracture here. Adjacent soft tissue swelling. Indeterminate focal radiolucent lesion distal radial diaphysis without endosteal cortical associated changes -significance -if any is unknown. To assess both possible scenarios, an MRI of the distal left forearm would be preferred. To assess for a potential distal radial nondisplaced fracture, a left distal forearm/wrist noncontrast CT should suffice. Either way follow-up is advised tibia/fibula XR X-Ray: Interpreted by Me, Viewed By Me, Read By Radiologist Interpretation: PROCEDURE: Radiographs of the right tibia and fibula. HISTORY : pain s.p fall. COMPARISON: None available. TECHNIQUE: Frontal and lateral views obtained. FINDINGS: BONES: No fracture or destructive lesion. JOINT SPACES: Unremarkable. OTHER FINDINGS: None. IMPRESSION: Unremarkable radiographs of the right tibia and fibula. CXR X-Ray: Interpreted by Me, Viewed By Me, Read By Radiologist Interpretation: PROCEDURE: CHEST RADIOGRAPH, 1 VIEW. HISTORY: Detox/Psy. COMPARISON: None available. FINDINGS: LUNGS: Clear. PLEURA: No pneumothorax or pleural fluid seen. CARDIOVASCULAR: Minimal cardiomegaly with left ventricular enlargement configuration. Ascending aorta appears slightly unfolded. This could be projectional. OSSEOUS STRUCTURES: No significant abnormalities. VISUALIZED UPPER ABDOMEN: Normal. OTHER FINDINGS: None. IMPRESSION: No acute cardiopulmonary pathology noted. Medical Decision Making Medical Decision Making: Impression: 52 year old male with dizziness, headache, and chest pain Plan: * Bloodwork * urinalysis * CXR * Left wrist XR * Right Tibia Fibula XR * EKG * Librium PO * Toradol IVP * Lactated Ringers Solution IV Progress: Bloodwork, urinalysis, CXR, EKG ordered and reviewed. Librium PO, Toradol IVP, and Lactated Ringers Solution IV administered. Left wrist XR and Right Tibia Fibula XR ordered. CP applied orthoglass volar splint to wrist, checked by me Case discussed with attending recommended obs admission, concerned for DT 1706 Spoke with hospitalist for observation admission Disposition - Disposition Disposition: HOSPITALIZED Disposition Time: 17:58 Condition: STABLE - POA Present On Arrival: None - Clinical Impression Clinical Impression: Alcohol abuse, Chest pain, Thrombocytopenia - PA / S[employer] / Resident Statement MD/DO has reviewed & agrees with the documentation as recorded. - Scribe Statement The provider has reviewed the documentation as recorded by the Scribe (Hortensia Rodriguez) All medical record entries made by the Scribe were at my direction and personally dictated by me. I have reviewed the chart and agree that the record accurately reflects my personal performance of the history, physical exam, medical decision making, and the department course for this patient. I have also personally directed, reviewed, and agree with the discharge instructions and disposition. Decision To Admit - Pt Status Changed To: Hospital Disposition Of: Observation - . Bed Request Type: Detox Admitting Physician: Matt Ashley Patient Diagnosis: Alcohol abuse, Chest pain, Thrombocytopenia
[2017-08-10] MEDS ORDERED: Lactated Ringer's 1,000 ML IV STA (15:09)
[2017-08-10 15:33] LABS: BASO % 0.9 % (0.0-2.0); EOS % 0.6 % (0.0-4.0); HEMATOCRIT 36.8 % (35.0-51.0); LYMPH # 0.9 K/uL (1.0-4.3); LYMPH % 27.6 % (20.0-40.0); MEAN CELL VOLUME 92.9 fL (80.0-94.0); MEAN CORPUSCULAR HEMOGLOBIN 31.5 pg (27.0-31.0); MEAN CORPUSCULAR HGB CONC 33.9 g/dL (33.0-37.0); MEAN PLATELET VOLUME 7.1 fL (7.2-11.7); MONO # 0.3 K/uL (0.0-0.8); MONO % 8.3 % (0.0-10.0); NRBC % 0.1 % (0.0-2.0); RED CELL DISTRIBUTION WIDTH 16.7 % (11.5-14.5); WHITE BLOOD COUNT 3.2 K/uL (4.8-10.8)
[2017-08-10] MEDS ORDERED: Lactated Ringer's 1,000 ML ONE ×2 (15:47→20:01)
[2017-08-10 16:35] LABS: ALB/GLOB RATIO 1.3 (1.0-2.1); ALCOHOL SERUM < 10 mg/dl (0-10); ALKALINE PHOSPHATASE 96 U/L (38-126); ALT/SGPT 146 U/L (21-72); AST/SGOT 259 U/L (17-59); BILIRUBIN,TOTAL 3.2 mg/dL (0.2-1.3); BLOOD UREA NITROGEN 13 mg/dL (9-20); CALCIUM 8.5 mg/dl (8.6-10.4); CARBON DIOXIDE 22 mmol/L (22-30); CHLORIDE 90 mmol/L (98-107); GFR AFRICAN-AMERICAN > 60; GLUCOSE,RANDOM 88 mg/dL (75-110); POTASSIUM 3.8 mmol/L (3.6-5.2); SODIUM 131 mmol/L (132-148); TOTAL PROTEIN 8.6 g/dL (6.3-8.3)
--- NOTE | 2017-08-10 16:57 | RAD ---
PROCEDURE: Left Wrist Radiographs. HISTORY: pain s.p fall COMPARISON: None. FINDINGS: BONES: The trabecular markings appear prominent in the distal radial metaphysis to epiphysis. A nondisplaced trabecular fracture here is questioned. Gross cortical fracture medial or lateral is appreciated. There is also a relative radiolucency in the distal radial diaphysis without endosteal scalloping or cortical interruption is noted on the oblique view. Its significance is unclear focal osteopenia versus an intra osseous focal marrow lesion here indeterminate are considerations. JOINTS: . No dislocation. SOFT TISSUES: Normal. OTHER FINDINGS: None. IMPRESSION: The trabecular markings of the distal radius concerning for a nondisplaced trabecular fracture here. Adjacent soft tissue swelling. Indeterminate focal radiolucent lesion distal radial diaphysis without endosteal cortical associated changes -significance -if any is unknown. To assess both possible scenarios, an MRI of the distal left forearm would be preferred. To assess for a potential distal radial nondisplaced fracture, a left distal forearm/wrist noncontrast CT should suffice. Either way follow-up is advised .
--- NOTE | 2017-08-10 16:57 | RAD ---
PROCEDURE: Radiographs of the right tibia and fibula. HISTORY: pain s.p fall COMPARISON: None available. TECHNIQUE: Frontal and lateral views obtained. FINDINGS: BONES: No fracture or destructive lesion. JOINT SPACES: Unremarkable. OTHER FINDINGS: None. IMPRESSION: Unremarkable radiographs of the right tibia and fibula.
--- NOTE | 2017-08-10 16:58 | RAD ---
PROCEDURE: CHEST RADIOGRAPH, 1 VIEW HISTORY: Detox/Psy COMPARISON: None available. FINDINGS: LUNGS: Clear. PLEURA: No pneumothorax or pleural fluid seen. CARDIOVASCULAR: Minimal cardiomegaly with left ventricular enlargement configuration. Ascending aorta appears slightly unfolded. This could be projectional OSSEOUS STRUCTURES: No significant abnormalities. VISUALIZED UPPER ABDOMEN: Normal. OTHER FINDINGS: None. IMPRESSION: No acute cardiopulmonary pathology noted.
--- NOTE | 2017-08-10 17:20 | CP.PCM.HP ---
<Ephraim Bridges Vivian - Last Filed: 08/10/17 18:46> History of Present Illness - History of Present Illness History of Present Illness: CC: "I don't feel well" HPI: This is a 52 year old male with a PMHx of Paranoia, Bipolar Disorder , HTN who was BIBA and presents to the ER with a 24 hour history of nausea, dizziness and chest pain. He describes the chest pain as pressure-like located mid-sternal, rated 5/10, that is not pleuritic. He took a tylenol that did not provide relief. He is a heavy drinker and drinks 1 pint of vodka a day with his last drink 36 hours ago. The patient had similar symptoms 3 months ago and spent 3 days at [facility]. Also, the patient was seen at [facility] ER 5 days ago for a fall he suffered in a stairwell due to alcohol intoxication, he was told he had a fractured wrist but the patient did not follow-up as advised. He also twisted his right ankle which did not fracture. Today he also endorses constipation and cannot recall when his last bowel movement was. He denies shortness of breath, hallucinations, focal deficits, suicidal ideation, homicidal ideation, fever, chills, vomiting, abdominal pain. PMD: Dr Omer (PMD in [place], patient last saw PMD 2 months ago) PMHx: Paranoia, Bipolar Disorder, HTN PSHx: denied Allergies: NKA Home Medications: Trazadone 50mg HS, Seroquel 1 tablet BID, Rispiradone 5mg QD FamHx: Father from [place], Mother with DM2 SocialHx: Smoked 1 ppd for 3 years; drinks 1 pint of vodka daily; lives alone in [facility] in [place] but currently living with a friend in ; works as a cook in a restaurant, immigrated from [place] 7 years ago where he has a and 2 children; denies illicit drug use Present on Admission - Present on Admission Any Indicators Present on Admission: No Review of Systems - Constitutional Constitutional: absent: Chills, Fatigue, Fever, Headache, Night Sweats, Weakness - EENT Eyes: absent: Change in Vision Ears: absent: Ear Pain Nose/Mouth/Throat: absent: Nasal Discharge - Cardiovascular Cardiovascular: Chest Pain, Chest Pain at Rest. absent: Edema, Palpitations, Rapid Heart Rate - Respiratory Respiratory: absent: Cough, Dyspnea on Exertion, Wheezing - Gastrointestinal Gastrointestinal: Constipation. absent: Abdominal Pain, Diarrhea, Hematochezia - Genitourinary Genitourinary: absent: Dysuria - Integumentary Integumentary: absent: Bleeding Lesions, Lesions - Neurological Neurological: Disequilibrium, Dizziness. absent: Abnormal Hearing, Confusion, Convulsions - Psychiatric Psychiatric: absent: Homicidal Ideation, Suicidal Ideation Past Patient History - Past Social History Smoking Status: Never Smoked - CARDIAC Hx Hypertension: Yes - PSYCHIATRIC Hx Paranoia: Yes Hx Substance Use: No - SURGICAL HISTORY Hx Surgeries: Yes Hx Herniorrhaphy: Yes - ANESTHESIA Hx Anesthesia: Yes Hx Anesthesia Reactions: No Meds Allergies/Adverse Reactions: Allergies Allergy/AdvReac Type Severity Reaction Status Date / Time No Known Allergies Allergy Verified 08/10/17 15:08 Physical Exam - Constitutional Appears: No Acute Distress, Unkempt - Head Exam Head Exam: ATRAUMATIC, NORMAL INSPECTION - Eye Exam Eye Exam: EOMI Pupil Exam: PERRL - ENT Exam ENT Exam: Mucous Membranes Dry Additional comments: poor dentition - Neck Exam Neck exam: Positive for: Normal Inspection - Respiratory Exam Respiratory Exam: Clear to Auscultation Bilateral, NORMAL BREATHING PATTERN. absent: Rales, Rhonchi, Wheezes - Cardiovascular Exam Cardiovascular Exam: REGULAR RHYTHM, +S1, +S2. absent: Bradycardia, Tachycardia , JVD, Systolic Murmur Additional comments: chest pain reproducible by palpation - GI/Abdominal Exam GI & Abdominal Exam: Normal Bowel Sounds, Soft. absent: Distended, Firm, Guarding, Hernia, Tenderness - Extremities Exam Extremities exam: Positive for: normal inspection Additional comments: 5 cm diameter bruise lateral aspect of right arm superior to elbow right ankle swollen left wrist swollen but no deformity noticed - left wrist motor strength weak - pulses 2+ throughout all extremities - Back Exam Back exam: NORMAL INSPECTION - Neurological Exam Neurological exam: Alert, Normal Gait, Oriented x3 - Psychiatric Exam Psychiatric exam: Flat Affect - Skin Skin Exam: Intact, Normal Color, Warm Results - Vital Signs Recent Vital Signs: Last Vital Signs Temp 99.4 F 08/10/17 16:11 Pulse 75 08/10/17 16:11 Resp 17 08/10/17 16:11 BP 147/87 08/10/17 16:11 Pulse Ox 96 08/10/17 17:16 - Labs Result Diagrams: 08/10/17 17:31 08/10/17 15:28 Labs: Laboratory Results - last 24 hr 08/10/17 08/10/17 15:28 15:28 WBC 3.2 L RBC 3.96 L Hgb 12.5 Hct 36.8 MCV 92.9 MCH 31.5 H MCHC 33.9 RDW 16.7 H Plt Count 27 L* MPV 7.1 L Neut % (Auto) 62.6 Lymph % (Auto) 27.6 Mobile % (Auto) 8.3 Eos % (Auto) 0.6 Baso % (Auto) 0.9 Neut # 2.0 Lymph # 0.9 L Mobile # 0.3 Eos # 0.0 Baso # 0.0 Differential Comment Sodium 131 L Potassium 3.8 Chloride 90 L Carbon Dioxide 22 Anion Gap 23 H BUN 13 Creatinine 0.6 L Est GFR ( Amer) > 60 Est GFR (Non-Af Amer) > 60 Random Glucose 88 Calcium 8.5 L Total Bilirubin 3.2 H AST 259 H ALT 146 H Alkaline Phosphatase 96 Troponin I < 0.0120 Total Protein 8.6 H Albumin 4.9 Globulin 3.7 Albumin/Globulin Ratio 1.3 Alcohol, Quantitative < 10 Assessment & Plan (1) Alcohol abuse Assessment and Plan: Patient with hx of alcohol use disorder, paranoia, and bipolar Psychiatry consult, Dr Ferro Aspiration precautions Seizure precautions Alcohol, Quantitative < 10 F/U drug screen F/U Ammonia level Meds: Lactated ringer given in ED 2L once Banana bag 1L once Folic acid 1mg PO QD Multivitamin 1 tab PO QD Thiamine 100mg PO QD Librium 25mg PO in ED once Lorazepam PO Taper Status: Acute (2) Elevated LFTs Assessment and Plan: Likely secondary to alcohol abuse On admission: AST 259, ALT 146 On admission: platelet count 27 Continue to monitor Status: Acute (3) Left wrist fracture Assessment and Plan: Orthopedic consult, Dr Kendall Apply soft split to immobilize left wrist Left wrist XRAY 08/10: The trabecular markings of the distal radius concerning for a nondisplaced trabecular fracture here. Adjacent soft tissue swelling. Indeterminate focal radiolucent lesion distal radial diaphysis without endosteal cortical associated changes -significance -if any is unknown. To assess both possible scenarios, an MRI of the distal left forearm would be preferred. Status: Acute (4) Chest pain Assessment and Plan: Reproducible to palpation Initial EKG shows NSR with normal rate and without ST changes Troponin x1 Negative F/U MAEVE panel x2 Status: Acute Priority: Low (5) Prophylactic measure Assessment and Plan: SCDs contraindicated due to recent fall which resulted in ankle swelling DVT anticoagulation contraindicated due to low platelet count Protonix 40mg QD Regular Diet Status: Acute Priority: Low <Matt Ashley H - Last Filed: 08/10/17 19:24> Results - Vital Signs Recent Vital Signs: Last Vital Signs Temp 98.0 F 08/10/17 18:36 Pulse 73 08/10/17 18:36 Resp 17 08/10/17 18:36 BP 152/92 H 08/10/17 18:36 Pulse Ox 98 08/10/17 18:36 - Labs Result Diagrams: 08/10/17 17:31 08/10/17 15:28 Labs: Laboratory Results - last 24 hr 08/10/17 08/10/17 08/10/17 15:28 15:28 17:31 WBC 3.2 L 3.8 L RBC 3.96 L 3.99 L Hgb 12.5 12.4 Hct 36.8 37.1 MCV 92.9 93.2 MCH 31.5 H 31.2 H MCHC 33.9 33.4 RDW 16.7 H 16.3 H Plt Count 27 L* 27 L* MPV 7.1 L 7.2 Neut % (Auto) 62.6 Lymph % (Auto) 27.6 Mobile % (Auto) 8.3 Eos % (Auto) 0.6 Baso % (Auto) 0.9 Neut # 2.0 Lymph # 0.9 L Mobile # 0.3 Eos # 0.0 Baso # 0.0 Differential Comment Sodium 131 L Potassium 3.8 Chloride 90 L Carbon Dioxide 22 Anion Gap 23 H BUN 13 Creatinine 0.6 L Est GFR ( Amer) > 60 Est GFR (Non-Af Amer) > 60 Random Glucose 88 Calcium 8.5 L Total Bilirubin 3.2 H AST 259 H ALT 146 H Alkaline Phosphatase 96 Troponin I < 0.0120 Total Protein 8.6 H Albumin 4.9 Globulin 3.7 Albumin/Globulin Ratio 1.3 Alcohol, Quantitative < 10 Attending/Attestation - Attestation I have personally seen and examined this patient.: Yes I have fully participated in the care of the patient.: Yes I have reviewed all pertinent clinical information: Yes Notes (Text): Medical Attending: Patient was seen and examined by me. Agree with the above note by the medical surgical tech This is a patient with a very signifigant alcohol abuse history. The situation is made more complicated because of psychiatric history including schizophrenia , and possible bipolar as well. This being said, when we saw the patient in the ER he was not in acute distress but reported feeling very anxious, and tremoulos as well as stomach nausea. He reports needing to drink alcohol just to feel normal. His last drink he reported was a day and half ago. There is a low platelet count, probably from alcohol toxication to the bone marrow as well as to the liver. For now would avoid heparin as well as lovenox until the number improves. Both AST and ALT are too elevated for cholexdepoxide, so will use ativan CIWA protocol/taper as well as MVI, thiamine, folic acid supplements. The resident ordered a james - I agree with this this. thank you Matt Ashley
[2017-08-10 17:36] LABS: HEMATOCRIT 37.1 % (35.0-51.0); MEAN CELL VOLUME 93.2 fL (80.0-94.0); MEAN CORPUSCULAR HEMOGLOBIN 31.2 pg (27.0-31.0); MEAN CORPUSCULAR HGB CONC 33.4 g/dL (33.0-37.0); MEAN PLATELET VOLUME 7.2 fL (7.2-11.7); RED CELL DISTRIBUTION WIDTH 16.3 % (11.5-14.5); WHITE BLOOD COUNT 3.8 K/uL (4.8-10.8)
[2017-08-10] MEDS ORDERED: Folic Acid 1 MG, Thiamine 100 MG, Multivitamin (MVI) 10 ML in Dextrose 5% In Water 1,00... IV ONE (18:15)
[2017-08-10 19:15] LABS: RBC URINE 12 /hpf (0-3); URINE BACTERIA OCC (<OCC); URINE BILIRUBIN NEGATIVE (NEGATIVE); URINE BLOOD 1+ (NEGATIVE); URINE COLOR Amber (YELLOW); URINE GLUCOSE (UA) NORMAL (Normal); URINE HYALINE CAST 0-2 /lpf (0-2); URINE KETONE 2+ mg/dL (NEGATIVE); URINE LEUKOCYTE ESTERASE NEG Leu/uL (Negative); URINE PROTEIN 2+ mg/dL (NEGATIVE); URINE UROBILINOGEN NORMAL mg/dL (0.2-1.0); WBC URINE 2 /hpf (0-5)
[2017-08-10] MEDS: Lactated Ringer's 1,000 ML IV SCH (20:13)
[2017-08-11 03:55] LABS: BASO % 1.3 % (0.0-2.0); EOS # 0.1 K/uL (0.0-0.7); EOS % 2.1 % (0.0-4.0); HEMATOCRIT 33.3 % (35.0-51.0); LYMPH # 1.6 K/uL (1.0-4.3); LYMPH % 43.1 % (20.0-40.0); MEAN CELL VOLUME 92.3 fL (80.0-94.0); MEAN CORPUSCULAR HEMOGLOBIN 31.9 pg (27.0-31.0); MEAN CORPUSCULAR HGB CONC 34.5 g/dL (33.0-37.0); MEAN PLATELET VOLUME 8.7 fL (7.2-11.7); MONO # 0.3 K/uL (0.0-0.8); NRBC % 0.1 % (0.0-2.0); RED CELL DISTRIBUTION WIDTH 16.5 % (11.5-14.5); WHITE BLOOD COUNT 3.7 K/uL (4.8-10.8)
[2017-08-11 04:20] LABS: ALKALINE PHOSPHATASE 88 U/L (38-126); ALT/SGPT 110 U/L (21-72); AST/SGOT 174 U/L (17-59); BILIRUBIN,TOTAL 2.3 mg/dL (0.2-1.3); BLOOD UREA NITROGEN 16 mg/dL (9-20); CALCIUM 8.2 mg/dl (8.6-10.4); CARBON DIOXIDE 26 mmol/L (22-30); CHLORIDE 94 mmol/L (98-107); GFR AFRICAN-AMERICAN > 60; GLUCOSE,RANDOM 106 mg/dL (75-110); POTASSIUM 3.3 mmol/L (3.6-5.2); SODIUM 130 mmol/L (132-148)
[2017-08-11] MEDS: Lactated Ringer's 1,000 ML IV SCH (05:25)
[2017-08-11] MEDS: Potassium Chloride 20 mEq ER Tab PO SCH ×2 (05:50→08:30)
[2017-08-11] MEDS ORDERED: Potassium Chloride 20 mEq ER Tab PO ONE (09:26)
[2017-08-11] MEDS ORDERED: Pneumococcal 23-Valent Vaccine IM ONE (10:00)
[2017-08-11] MEDS: Pantoprazole 40 mg EC Tab PO SCH (10:25)
[2017-08-11] MEDS: Multiple Vitamins Tab PO SCH (10:25)
[2017-08-11] MEDS ORDERED: LORAZEPAM 2 MG/ML IVP PRN (13:41)
--- NOTE | 2017-08-11 13:44 | PCM.PSYCH ---
Initial Psychiatric Evaluation - Initial Psychiatric Evaluation Type of Admission: Voluntary Legal Status: Capacity Chief Complaint (in patient's own words): "I'm just fine" History of Present Illness and Precipitating Events: Pt is seen, chart reviewed and case discussed. Consult was asked for his alcohol wdw. 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 Currently, he denies manic or depressive sxs. However, he is in alcohol withdrawal, despite his claims to have been drinking "only two drinks a day." Denies drug/cigarette use. Alcohol is for "4-5 years" but that's likely an underestimate. Past psych hx: Two admissions. No suicide attempt Medical hx: Per chart Family Hx: Denied Current Medications: Active Medications Generic Name Dose Route Start Last Admin Trade Name Freq PRN Reason Stop Dose Admin Clonidine HCl 0.1 mg 08/11/17 13:41 Catapres PO Q4H PRN Symptoms of alcohol withdrawl Folic Acid 1 mg 08/11/17 10:00 08/11/17 10:25 Folic Acid PO 1 mg DAILY ANNETTE Administration Lactated Ringer's 1,000 mls @ 100 mls/hr 08/10/17 18:15 08/11/17 05:25 Lactated Ringer's IV 100 mls/hr .Q10H ANNETTE Administration Ketorolac Tromethamine 30 mg 08/10/17 19:15 08/11/17 12:36 Toradol IVP 30 mg Q8H ANNETTE Administration Lorazepam 1 mg 08/11/17 13:41 Ativan IVP Q4H PRN Symptoms of alcohol withdrawl Lorazepam 0 mg 08/11/17 16:00 Ativan PO 08/15/17 15:59 .TAPER ANNETTE Taper Multivitamins 1 tab 08/11/17 10:00 08/11/17 10:25 Hexavitamin PO 1 tab DAILY ANNETTE Administration Pantoprazole Sodium 40 mg 08/11/17 10:00 08/11/17 10:25 Protonix Ec Tab PO 40 mg DAILY ANNETTE Administration Thiamine HCl 100 mg 08/11/17 10:00 08/11/17 10:25 Vitamin B1 Tab PO 100 mg DAILY ANNETTE Administration Trazodone HCl 100 mg 08/11/17 13:42 Desyrel PO HS PRN Insomnia Past Psychiatric History - Past Psychiatric History Previous Treatment History: Inpatient Pertinent Medical Hx (Current Medical&Sleep Prob, Allergies): Allergies Allergy/AdvReac Type Severity Reaction Status Date / Time No Known Allergies Allergy Verified 08/10/17 15:08 Risperdal 08/10/17 Seroquel 08/10/17 traZODone 08/10/17 Review of Systems - Neurological Neurological: Tremor - Psychiatric Psychiatric: Abnormal Sleep Pattern, Anxiety, Confusion, Depression, Irritability. absent: Hallucinations, Homicidal Ideation, Suicidal Ideation Mental Status Examination - Personal Presentation Personal Presentation: Looks stated age - Affect Affect: Constricted - Motor Activity Motor Activity: Psychomotor Agitation (mild, restless) - Reliability in Providing Information Reliability in Providing Information: Poor, due to cognitve impairment - Speech Speech: Disorganized - Mood Mood: Anxious - Formal Thought Process Formal Thought Process: Loosening of associations - Cognitive Functions Orientation: Person Sensorium: Drowsy Attention/Concentration: Easily distracted Abstract Thinking: Jackson Estimate of Intelligence: Average Judgement: Imparied, as evidence by: Poor judgement (wants to leave soon) Memory: Recent impaired, as evidence by: Inability to recall events of the day, Remote impaired as evidenced by: Inability to recall sig life events - Risk Risk: Seizure, Withdrawal, Diminished functioning - Strength & Assets Inventory Strength & Assets Inventory: Cooperative, Other - Limitations Limitations: Living alone DSM 5 DX - DSM 5 DSM 5 Diagnosis: Bipolar disorder - unspecified Alcohol withdrawal Alcohol use d/o - severe r/o delirium (has periods of mild confusion) - Recommended/Plan of Treatment Treatment Recommendations and Plan of Treatment: Ativan detox Gabapentin for augmentation As needed medications Supportive therapy and psychoeducation TN for abstinence CBT for relapse prevention Refer to rehab or IOP, and self-help groups Smoking cessation with TN Nicotine patch Seroquel for bipolar d/o relapse prevention 34 min
--- NOTE | 2017-08-11 15:55 | CP.PCM.PN ---
<Gay Zuniga - Last Filed: 08/11/17 15:49> Subjective - Date & Time of Evaluation Date of Evaluation: 08/11/17 Time of Evaluation: 09:10 - Subjective Subjective: medicine note for Dr. Ashley Patient seen and examined at bedside. Patient resting comfortably in bed. Patient says he is feeling much better today. Patient says his hands are still shaking a little and he feels dizzy upon standing but otherwise feels well. Patient says he has not had a BM in 2 days. Patient denies fever, chills, chest pain, SOB, abdominal pain, n/v/d, calf pain, and LE swelling. Objective - Vital Signs/Intake and Output Vital Signs (last 24 hours): Temp Pulse Resp BP Pulse Ox 97.7 F 100 H 20 147/100 H 97 08/11/17 07:20 08/11/17 09:00 08/11/17 07:20 08/11/17 07:20 08/11/17 07:20 - Medications Medications: Current Medications Clonidine HCl (Catapres) 0.1 mg PO Q4H PRN PRN Reason: Symptoms of alcohol withdrawl Folic Acid (Folic Acid) 1 mg PO DAILY [facility] Last Admin: 08/11/17 10:25 Dose: 1 mg Ketorolac Tromethamine (Toradol) 30 mg IVP Q8H [facility] Last Admin: 08/11/17 12:36 Dose: 30 mg Lorazepam (Ativan) 2 mg PO .TAPER [facility] PRN Reason: Taper Stop: 08/15/17 15:59 Lorazepam (Ativan) 1 mg IVP Q4H PRN PRN Reason: Symptoms of alcohol withdrawl Multivitamins (Hexavitamin) 1 tab PO DAILY [facility] Last Admin: 08/11/17 10:25 Dose: 1 tab Pantoprazole Sodium (Protonix Ec Tab) 40 mg PO DAILY [facility] Last Admin: 08/11/17 10:25 Dose: 40 mg Quetiapine Fumarate (Seroquel) 50 mg PO DAILY [facility] Last Admin: 08/11/17 14:12 Dose: 50 mg Quetiapine Fumarate (Seroquel) 100 mg PO HS [facility] Thiamine HCl (Vitamin B1 Tab) 100 mg PO DAILY [facility] Last Admin: 08/11/17 10:25 Dose: 100 mg Trazodone HCl (Desyrel) 100 mg PO HS PRN PRN Reason: Insomnia - Labs Labs: 08/11/17 03:52 08/11/17 03:52 - Additional Findings Additional findings: - Constitutional Appears: No Acute Distress, Unkempt - Head Exam Head Exam: ATRAUMATIC, NORMAL INSPECTION - Eye Exam Eye Exam: EOMI - ENT Exam ENT Exam: Mucous Membranes Dry Additional comments: poor dentition - Respiratory Exam Respiratory Exam: Clear to Auscultation Bilateral, NORMAL BREATHING PATTERN. absent: Rales, Rhonchi, Wheezes - Cardiovascular Exam Cardiovascular Exam: REGULAR RHYTHM, +S1, +S2. absent: Bradycardia, Tachycardia , JVD, Systolic Murmur - GI/Abdominal Exam GI & Abdominal Exam: Normal Bowel Sounds, Soft. absent: Distended, Firm, Guarding, Hernia, Tenderness - Extremities Exam Extremities exam: Positive for: normal inspection Additional comments: bruising lateral aspect of right arm superior to elbow left wrist swollen but no deformity noticed - left wrist motor strength weak - pulses 2+ throughout all extremities swelling over right proximal tibia with bruising - Neurological Exam Neurological exam: Alert, Normal Gait, Oriented x3 - Psychiatric Exam Psychiatric exam: Flat Affect - Skin Skin Exam: Intact, Normal Color, Warm Assessment and Plan - Assessment and Plan (Free Text) Plan: (1) Alcohol abuse Assessment and Plan: Patient with hx of alcohol use disorder, paranoia, and bipolar Psychiatry consult, Dr Ferro Aspiration precautions Seizure precautions Alcohol, Quantitative < 10 Drug screen positive for benzodiazepines F/U Ammonia level Meds: Lactated ringer given in ED 2L once Banana bag 1L once Folic acid 1mg PO QD Multivitamin 1 tab PO QD Thiamine 100mg PO QD Librium 25mg PO in ED once Lorazepam PO Taper Status: Acute (2) Elevated LFTs Assessment and Plan: Likely secondary to alcohol abuse On admission: AST 259, ALT 146 On admission: platelet count 27 Continue to monitor Status: Acute (3) Left wrist fracture Assessment and Plan: Orthopedic consult, Dr Kendall Apply soft split to immobilize left wrist Left wrist XRAY 08/10: The trabecular markings of the distal radius concerning for a nondisplaced trabecular fracture here. Adjacent soft tissue swelling. Indeterminate focal radiolucent lesion distal radial diaphysis without endosteal cortical associated changes -significance -if any is unknown. To assess both possible scenarios, an MRI of the distal left forearm would be preferred. Status: Acute (4) Chest pain Assessment and Plan: Reproducible to palpation Initial EKG shows NSR with normal rate and without ST changes Troponin x3 Negative Status: Acute Priority: Low (5) Prophylactic measure Assessment and Plan: SCDs contraindicated due to recent fall which resulted in ankle swelling DVT anticoagulation contraindicated due to low platelet count Protonix 40mg QD Regular Diet Status: Acute Priority: Low <GabiMatt H - Last Filed: 08/12/17 07:25> Objective - Vital Signs/Intake and Output Vital Signs (last 24 hours): Temp Pulse Resp BP Pulse Ox 98.2 F 71 20 148/97 H 95 08/12/17 04:20 08/12/17 04:20 08/12/17 04:20 08/12/17 04:20 08/12/17 04:20 - Medications Medications: Current Medications Clonidine HCl (Catapres) 0.1 mg PO Q4H PRN PRN Reason: Symptoms of alcohol withdrawl Last Admin: 08/11/17 21:18 Dose: 0.1 mg Folic Acid (Folic Acid) 1 mg PO DAILY [facility] Last Admin: 08/11/17 10:25 Dose: 1 mg Ketorolac Tromethamine (Toradol) 30 mg IVP Q8H [facility] Last Admin: 08/12/17 04:39 Dose: 30 mg Lorazepam (Ativan) 2 mg PO Q6H [facility] PRN Reason: Taper Stop: 08/15/17 15:59 Last Admin: 08/12/17 04:40 Dose: Not Given Lorazepam (Ativan) 1 mg IVP Q4H PRN PRN Reason: Symptoms of alcohol withdrawl Last Admin: 08/11/17 18:39 Dose: 1 mg Multivitamins (Hexavitamin) 1 tab PO DAILY [facility] Last Admin: 08/11/17 10:25 Dose: 1 tab Pantoprazole Sodium (Protonix Ec Tab) 40 mg PO DAILY [facility] Last Admin: 08/11/17 10:25 Dose: 40 mg Quetiapine Fumarate (Seroquel) 50 mg PO DAILY [facility] Last Admin: 08/11/17 14:12 Dose: 50 mg Quetiapine Fumarate (Seroquel) 100 mg PO HS [facility] Last Admin: 08/11/17 21:18 Dose: 100 mg Thiamine HCl (Vitamin B1 Tab) 100 mg PO DAILY [facility] Last Admin: 08/11/17 10:25 Dose: 100 mg Trazodone HCl (Desyrel) 100 mg PO HS PRN PRN Reason: Insomnia - Labs Labs: 08/11/17 03:52 08/11/17 03:52 Attending/Attestation - Attestation I have personally seen and examined this patient.: Yes I have fully participated in the care of the patient.: Yes I have reviewed all pertinent clinical information, including history, physical exam and plan: Yes Notes (Text): Medical attending: Patient was seen and examined by me, agree with the above note by medical technologist generalist. This morning when we saw the patient, he was answering all questions appropriately. He was aware of person place and time he denied having any shaking or tremors. He also denied having any stomach cramping. He is tolerating his diet as well. Because he is tolerating his diet now, will discontinue the intravenous fluids lactated Ringer's that he was on. He previously received a multivitamin thiamine folic acid as well. This was done last night At this time to continue with the Ativan taper. Reviewed and continue to monitor for further alcohol withdrawal. Thank you very much, Matt Ashley
[2017-08-12 07:30] LABS: EOS # 0.1 K/uL (0.0-0.7); EOS % 3.1 % (0.0-4.0); HEMATOCRIT 37.1 % (35.0-51.0); LYMPH # 1.7 K/uL (1.0-4.3); LYMPH % 46.4 % (20.0-40.0); MEAN CELL VOLUME 93.7 fL (80.0-94.0); MEAN CORPUSCULAR HEMOGLOBIN 31.3 pg (27.0-31.0); MEAN CORPUSCULAR HGB CONC 33.4 g/dL (33.0-37.0); MEAN PLATELET VOLUME 7.8 fL (7.2-11.7); MONO # 0.3 K/uL (0.0-0.8); MONO % 9.3 % (0.0-10.0); NRBC % 0.1 % (0.0-2.0); RED CELL DISTRIBUTION WIDTH 16.3 % (11.5-14.5); WHITE BLOOD COUNT 3.6 K/uL (4.8-10.8)
[2017-08-12 08:17] LABS: ALB/GLOB RATIO 1.3 (1.0-2.1); ALKALINE PHOSPHATASE 88 U/L (38-126); ALT/SGPT 101 U/L (21-72); AST/SGOT 132 U/L (17-59); BILIRUBIN,TOTAL 1.7 mg/dL (0.2-1.3); BLOOD UREA NITROGEN 10 mg/dL (9-20); CALCIUM 8.9 mg/dl (8.6-10.4); CARBON DIOXIDE 22 mmol/L (22-30); CHLORIDE 100 mmol/L (98-107); GFR AFRICAN-AMERICAN > 60; GLUCOSE,RANDOM 112 mg/dL (75-110); MAGNESIUM 1.7 mg/dL (1.6-2.3); PHOSPHOROUS 3.4 mg/dL (2.5-4.5); POTASSIUM 3.7 mmol/L (3.6-5.2); SODIUM 135 mmol/L (132-148); TOTAL PROTEIN 7.8 g/dL (6.3-8.3)
--- NOTE | 2017-08-12 08:36 | CARD ---
APPROVED REPORT EKG Measurement Heart [id number] [place] [id number] <Conclusion> Normal sinus rhythm Normal ECG
[2017-08-12] MEDS: Pantoprazole 40 mg EC Tab PO SCH (09:25)
[2017-08-12] MEDS: Multiple Vitamins Tab PO SCH (09:25)
[2017-08-12] MEDS ORDERED: Influenza Vaccine 60 mcg/0.5 mL SYR (4YR UP) IM ONE (10:00)
--- NOTE | 2017-08-12 11:37 | CP.PCM.PN ---
<Gay Zuniga - Last Filed: 08/12/17 11:34> Subjective - Date & Time of Evaluation Date of Evaluation: 08/12/17 Time of Evaluation: 07:30 - Subjective Subjective: Medicine note for Dr. Ashley Patient seen and examined at bedside. Patient sleeping in bed and not waking up for my questions. Patient is very drowsy and only wakes up to say he has "pain all over". When I ask further questions patient begins to snore and will not answer. Objective - Vital Signs/Intake and Output Vital Signs (last 24 hours): Temp Pulse Resp BP Pulse Ox 97.4 F L 82 20 141/90 100 08/12/17 08:24 08/12/17 08:24 08/12/17 08:24 08/12/17 08:24 08/12/17 08:24 - Medications Medications: Current Medications Clonidine HCl (Catapres) 0.1 mg PO Q4H PRN PRN Reason: Symptoms of alcohol withdrawl Last Admin: 08/11/17 21:18 Dose: 0.1 mg Folic Acid (Folic Acid) 1 mg PO DAILY [facility] Last Admin: 08/12/17 09:25 Dose: 1 mg Ketorolac Tromethamine (Toradol) 30 mg IVP Q8H [facility] Last Admin: 08/12/17 04:39 Dose: 30 mg Lorazepam (Ativan) 2 mg PO Q6H [facility] PRN Reason: Taper Stop: 08/15/17 15:59 Last Admin: 08/12/17 10:59 Dose: Not Given Lorazepam (Ativan) 1 mg IVP Q4H PRN PRN Reason: Symptoms of alcohol withdrawl Last Admin: 08/11/17 18:39 Dose: 1 mg Multivitamins (Hexavitamin) 1 tab PO DAILY [facility] Last Admin: 08/12/17 09:25 Dose: 1 tab Pantoprazole Sodium (Protonix Ec Tab) 40 mg PO DAILY [facility] Last Admin: 08/12/17 09:25 Dose: 40 mg Quetiapine Fumarate (Seroquel) 50 mg PO DAILY [facility] Last Admin: 08/12/17 09:25 Dose: 50 mg Quetiapine Fumarate (Seroquel) 100 mg PO HS [facility] Last Admin: 08/11/17 21:18 Dose: 100 mg Thiamine HCl (Vitamin B1 Tab) 100 mg PO DAILY [facility] Last Admin: 08/12/17 09:25 Dose: 100 mg Trazodone HCl (Desyrel) 100 mg PO HS PRN PRN Reason: Insomnia - Labs Labs: 08/12/17 07:18 08/12/17 07:18 - Additional Findings Additional findings: - Constitutional Appears: No Acute Distress, Unkempt - Head Exam Head Exam: ATRAUMATIC, NORMAL INSPECTION - Eye Exam Eye Exam: EOMI - Respiratory Exam Respiratory Exam: Clear to Auscultation Bilateral, NORMAL BREATHING PATTERN. absent: Rales, Rhonchi, Wheezes - Cardiovascular Exam Cardiovascular Exam: REGULAR RHYTHM, +S1, +S2. absent: Bradycardia, Tachycardia , JVD, Systolic Murmur - GI/Abdominal Exam GI & Abdominal Exam: Normal Bowel Sounds, Soft. absent: Distended, Firm, Guarding, Hernia, Tenderness - Extremities Exam Extremities exam: Positive for: normal inspection Additional comments: bruising lateral aspect of right arm superior to elbow swelling over right proximal tibia with bruising - Neurological Exam Neurological exam: drowsy - Psychiatric Exam Psychiatric exam: Flat Affect - Skin Skin Exam: Intact, Normal Color, Warm Assessment and Plan - Assessment and Plan (Free Text) Plan: (1) Alcohol abuse and withdrawal Assessment and Plan: Patient with hx of alcohol use disorder, paranoia, and bipolar Psychiatry consult, Dr Ferro Aspiration precautions Seizure precautions Alcohol, Quantitative < 10 Drug screen positive for benzodiazepines F/U Ammonia level Continue to monitor for withdrawal symptoms Meds: Lactated ringer given in ED 2L once Banana bag 1L once Folic acid 1mg PO QD Multivitamin 1 tab PO QD Thiamine 100mg PO QD Librium 25mg PO in ED once Lorazepam PO Taper Status: Acute (2) Elevated LFTs Assessment and Plan: Likely secondary to alcohol abuse On admission: AST 259, ALT 146 On admission: platelet count 27 Continue to monitor Status: Acute (3) Left wrist fracture Assessment and Plan: Orthopedic consult, Dr Kendall Apply soft split to immobilize left wrist Left wrist XRAY 08/10: The trabecular markings of the distal radius concerning for a nondisplaced trabecular fracture here. Adjacent soft tissue swelling. Indeterminate focal radiolucent lesion distal radial diaphysis without endosteal cortical associated changes -significance -if any is unknown. To assess both possible scenarios, an MRI of the distal left forearm would be preferred. Status: Acute (4) Chest pain Assessment and Plan: Reproducible to palpation Initial EKG shows NSR with normal rate and without ST changes Troponin x3 Negative Status: Acute Priority: Low (5)Thrombocytopenia Assessment and Plan: Improving - Continue to monitor (6) Prophylactic measure Assessment and Plan: SCDs contraindicated due to recent fall which resulted in ankle swelling DVT anticoagulation contraindicated due to low platelet count Protonix 40mg QD Regular Diet Status: Acute Priority: Low <Matt Ashley H - Last Filed: 08/12/17 14:12> Objective - Vital Signs/Intake and Output Vital Signs (last 24 hours): Temp Pulse Resp BP Pulse Ox 97.4 F L 82 20 141/90 100 08/12/17 08:24 08/12/17 08:24 08/12/17 08:24 08/12/17 08:24 08/12/17 08:24 Intake and Output: 08/12/17 08/12/17 06:59 18:59 Intake Total 240 Balance 240 - Medications Medications: Current Medications Clonidine HCl (Catapres) 0.1 mg PO Q4H PRN PRN Reason: Symptoms of alcohol withdrawl Last Admin: 08/11/17 21:18 Dose: 0.1 mg Folic Acid (Folic Acid) 1 mg PO DAILY [facility] Last Admin: 08/12/17 09:25 Dose: 1 mg Ketorolac Tromethamine (Toradol) 30 mg IVP Q8H [facility] Last Admin: 08/12/17 12:00 Dose: Not Given Lorazepam (Ativan) 2 mg PO Q6H [facility] PRN Reason: Taper Stop: 08/15/17 15:59 Last Admin: 08/12/17 10:59 Dose: Not Given Lorazepam (Ativan) 1 mg IVP Q4H PRN PRN Reason: Symptoms of alcohol withdrawl Last Admin: 08/11/17 18:39 Dose: 1 mg Multivitamins (Hexavitamin) 1 tab PO DAILY [facility] Last Admin: 08/12/17 09:25 Dose: 1 tab Pantoprazole Sodium (Protonix Ec Tab) 40 mg PO DAILY [facility] Last Admin: 08/12/17 09:25 Dose: 40 mg Quetiapine Fumarate (Seroquel) 100 mg PO HS [facility] Last Admin: 08/11/17 21:18 Dose: 100 mg Quetiapine Fumarate (Seroquel) 50 mg PO BID [facility] Thiamine HCl (Vitamin B1 Tab) 100 mg PO DAILY [facility] Last Admin: 08/12/17 09:25 Dose: 100 mg Trazodone HCl (Desyrel) 100 mg PO HS PRN PRN Reason: Insomnia - Labs Labs: 08/12/17 07:18 08/12/17 07:18 Attending/Attestation - Attestation I have personally seen and examined this patient.: Yes I have fully participated in the care of the patient.: Yes I have reviewed all pertinent clinical information, including history, physical exam and plan: Yes Notes (Text): 08/12/17 14:12 Medical attending: Patient was seen and examined by me, agree with the above note by medical staff manager. Yesterday the patient was very awake and alert and was answering many questions. Today when we came and saw him he was very sleepy, somnolent. He was able to open up his eyes say brief words such as yes and no and then go back to sleep. So at this time were giving continue with the tapering protocol. Continue thiamine folic multivitamin, jugular venous fluids. His platelet count has increased as well thank you Matt Ashley
--- NOTE | 2017-08-12 14:01 | PCM.PYCHPN ---
Psychiatric Progress Note - Psychiatric Progress Note Patient seen today, length of contact: 16 min Patient Chief Complaint: He was too sedated and he just said he couldn;t sleep Problems Identified/Issues Discussed: The pt is seen, chart reviewed, case discussed with staff. The pt is compliant with medications and no SEs observed Symptoms are improving but needs more time to stabilize. less restless today. Support given Medication Change: Yes (increased seroquel, detox changes daily) Medical Record Reviewed: Yes Mental Status Examination - Cognitive Function Orientation: Person Memory: Impaired Attention: Poor Concentration: Poor Association: Loose Fund of Knowledge: Poor - Mood Mood: Anxious - Affect Affect: Constricted - Speech Speech: Slurred - Formal Thought Process Formal Thought Process: Loosening of associations - Suicidal Ideation Suicidal Ideation: No - Homicidal Ideation Homicidal Ideation: No Goal/Treatment Plan - Goal/Treatment Plan Need for Continued Stay: Discharge may exacerbated symptoms, Severe functional impairment Progress Toward Problem(s) and Goals/Treatment Plan: Ativan detox As needed medications Supportive therapy and psychoeducation AR for abstinence CBT for relapse prevention Refer to rehab or IOP, and self-help groups Smoking cessation with AR Nicotine patch Seroquel for bipolar d/o relapse prevention
[2017-08-13 07:36] LABS: BASO % 0.9 % (0.0-2.0); EOS # 0.1 K/uL (0.0-0.7); EOS % 2.8 % (0.0-4.0); HEMATOCRIT 36.9 % (35.0-51.0); LYMPH # 1.6 K/uL (1.0-4.3); LYMPH % 37.7 % (20.0-40.0); MEAN CELL VOLUME 94.4 fL (80.0-94.0); MEAN CORPUSCULAR HEMOGLOBIN 31.9 pg (27.0-31.0); MEAN CORPUSCULAR HGB CONC 33.8 g/dL (33.0-37.0); MEAN PLATELET VOLUME 8.8 fL (7.2-11.7); MONO # 0.3 K/uL (0.0-0.8); MONO % 7.7 % (0.0-10.0); NRBC % 0.1 % (0.0-2.0); RED CELL DISTRIBUTION WIDTH 16.4 % (11.5-14.5); WHITE BLOOD COUNT 4.2 K/uL (4.8-10.8)
[2017-08-13 08:09] LABS: ALKALINE PHOSPHATASE 75 U/L (38-126); ALT/SGPT 155 U/L (21-72); AST/SGOT 226 U/L (17-59); BILIRUBIN,TOTAL 1.2 mg/dL (0.2-1.3); BLOOD UREA NITROGEN 18 mg/dL (9-20); CALCIUM 8.7 mg/dl (8.6-10.4); CARBON DIOXIDE 24 mmol/L (22-30); CHLORIDE 101 mmol/L (98-107); GFR AFRICAN-AMERICAN > 60; GLUCOSE,RANDOM 105 mg/dL (75-110); MAGNESIUM 1.8 mg/dL (1.6-2.3); PHOSPHOROUS 4.2 mg/dL (2.5-4.5); POTASSIUM 3.8 mmol/L (3.6-5.2); SODIUM 135 mmol/L (132-148); TOTAL PROTEIN 8.1 g/dL (6.3-8.3)
[2017-08-13] MEDS: Pantoprazole 40 mg EC Tab PO SCH (09:40)
[2017-08-13] MEDS: Multiple Vitamins Tab PO SCH (09:40)
--- NOTE | 2017-08-13 21:08 | CP.PCM.PN ---
Subjective - Date & Time of Evaluation Date of Evaluation: 08/13/17 Time of Evaluation: 07:45 - Subjective Subjective: Patient seen and examined at bedside. Patient resting comfortably in bed with no new complaints at this time. Renetta is still having some dizziness upon standing but otherwise denies fever, chills, chest pain, SOB, abdominal pain, N& V, diarrhea, constipation, calf pain, and LE swelling. Objective - Vital Signs/Intake and Output Vital Signs (last 24 hours): Temp Pulse Resp BP Pulse Ox 98.2 F 91 H 20 111/76 97 08/13/17 15:29 08/13/17 16:00 08/13/17 15:29 08/13/17 15:29 08/13/17 15:29 - Medications Medications: Current Medications Clonidine HCl (Catapres) 0.1 mg PO Q4H PRN PRN Reason: Symptoms of alcohol withdrawl Last Admin: 08/11/17 21:18 Dose: 0.1 mg Folic Acid (Folic Acid) 1 mg PO DAILY [facility] Last Admin: 08/13/17 09:40 Dose: 1 mg Ketorolac Tromethamine (Toradol) 30 mg IVP Q8H [facility] Last Admin: 08/13/17 20:33 Dose: 30 mg Lorazepam (Ativan) 2 mg PO Q12H [facility] PRN Reason: Taper Stop: 08/15/17 15:59 Last Admin: 08/13/17 16:26 Dose: 2 mg Lorazepam (Ativan) 1 mg IVP Q4H PRN PRN Reason: Symptoms of alcohol withdrawl Last Admin: 08/11/17 18:39 Dose: 1 mg Multivitamins (Hexavitamin) 1 tab PO DAILY [facility] Last Admin: 08/13/17 09:40 Dose: 1 tab Pantoprazole Sodium (Protonix Ec Tab) 40 mg PO DAILY [facility] Last Admin: 08/13/17 09:40 Dose: 40 mg Pneumococcal Polyvalent Vaccine (Pneumovax 23 Vaccine) 0.5 ml IM .ONCE ONE Stop: 08/14/17 10:01 Quetiapine Fumarate (Seroquel) 100 mg PO HS [facility] Last Admin: 08/12/17 21:24 Dose: 100 mg Quetiapine Fumarate (Seroquel) 50 mg PO BID [facility] Last Admin: 08/13/17 17:03 Dose: 50 mg Thiamine HCl (Vitamin B1 Tab) 100 mg PO DAILY [facility] Last Admin: 08/13/17 09:40 Dose: 100 mg Trazodone HCl (Desyrel) 100 mg PO HS PRN PRN Reason: Insomnia - Labs Labs: 08/13/17 07:23 08/13/17 07:23 - Additional Findings Additional findings: - Constitutional Appears: No Acute Distress, Unkempt - Head Exam Head Exam: ATRAUMATIC, NORMAL INSPECTION - Eye Exam Eye Exam: EOMI - Respiratory Exam Respiratory Exam: Clear to Auscultation Bilateral, NORMAL BREATHING PATTERN. absent: Rales, Rhonchi, Wheezes - Cardiovascular Exam Cardiovascular Exam: REGULAR RHYTHM, +S1, +S2. absent: Bradycardia, Tachycardia , JVD, Systolic Murmur - GI/Abdominal Exam GI & Abdominal Exam: Normal Bowel Sounds, Soft. absent: Distended, Firm, Guarding, Hernia, Tenderness - Extremities Exam Extremities exam: Positive for: normal inspection Additional comments: bruising lateral aspect of right arm superior to elbow swelling over right proximal tibia with bruising - Neurological Exam Neurological exam: drowsy - Psychiatric Exam Psychiatric exam: Flat Affect - Skin Skin Exam: Intact, Normal Color, Warm Assessment and Plan - Assessment and Plan (Free Text) Plan: (1) Alcohol abuse and withdrawal Assessment and Plan: Patient with hx of alcohol use disorder, paranoia, and bipolar Psychiatry consult, Dr Ferro Aspiration precautions Seizure precautions Alcohol, Quantitative < 10 Drug screen positive for benzodiazepines F/U Ammonia level Continue to monitor for withdrawal symptoms Meds: Lactated ringer given in ED 2L once Banana bag 1L once Folic acid 1mg PO QD Multivitamin 1 tab PO QD Thiamine 100mg PO QD Librium 25mg PO in ED once Lorazepam PO Taper Status: Acute (2) Elevated LFTs Assessment and Plan: Likely secondary to alcohol abuse On admission: AST 259, ALT 146 On admission: platelet count 27 Continue to monitor Status: Acute (3) Left wrist fracture Assessment and Plan: Orthopedic consult, Dr Kendall Apply soft split to immobilize left wrist Left wrist XRAY 08/10: The trabecular markings of the distal radius concerning for a nondisplaced trabecular fracture here. Adjacent soft tissue swelling. Indeterminate focal radiolucent lesion distal radial diaphysis without endosteal cortical associated changes -significance -if any is unknown. To assess both possible scenarios, an MRI of the distal left forearm would be preferred. Status: Acute (4) Chest pain Assessment and Plan: Reproducible to palpation Initial EKG shows NSR with normal rate and without ST changes Troponin x3 Negative Status: Acute Priority: Low (5)Thrombocytopenia Assessment and Plan: Improving - Continue to monitor (6) Prophylactic measure Assessment and Plan: SCDs contraindicated due to recent fall which resulted in ankle swelling DVT anticoagulation contraindicated due to low platelet count Protonix 40mg QD Regular Diet Status: Acute Priority: Low
[2017-08-14 06:43] LABS: BASO % 0.7 % (0.0-2.0); EOS # 0.1 K/uL (0.0-0.7); EOS % 1.2 % (0.0-4.0); LYMPH # 1.7 K/uL (1.0-4.3); LYMPH % 33.9 % (20.0-40.0); MEAN CORPUSCULAR HEMOGLOBIN 32.2 pg (27.0-31.0); MEAN CORPUSCULAR HGB CONC 34.2 g/dL (33.0-37.0); MEAN PLATELET VOLUME 8.1 fL (7.2-11.7); MONO # 0.5 K/uL (0.0-0.8); RED CELL DISTRIBUTION WIDTH 16.2 % (11.5-14.5); WHITE BLOOD COUNT 5.1 K/uL (4.8-10.8)
[2017-08-14 07:16] LABS: BLOOD UREA NITROGEN 27 mg/dL (9-20); CARBON DIOXIDE 22 mmol/L (22-30); CHLORIDE 102 mmol/L (98-107); GFR AFRICAN-AMERICAN > 60; GLUCOSE,RANDOM 114 mg/dL (75-110); POTASSIUM 3.8 mmol/L (3.6-5.2); SODIUM 136 mmol/L (132-148)
[2017-08-14 07:17] LABS: ALB/GLOB RATIO 1.3 (1.0-2.1); ALKALINE PHOSPHATASE 109 U/L (38-126); ALT/SGPT 191 U/L (21-72); AST/SGOT 253 U/L (17-59); CALCIUM 8.6 mg/dl (8.6-10.4); MAGNESIUM 1.9 mg/dL (1.6-2.3); PHOSPHOROUS 3.3 mg/dL (2.5-4.5); TOTAL PROTEIN 7.3 g/dL (6.3-8.3)
--- NOTE | 2017-08-14 07:56 | CP.PCM.PN ---
<Gay Zuniga - Last Filed: 08/14/17 10:13> Subjective - Date & Time of Evaluation Date of Evaluation: 08/14/17 Time of Evaluation: 07:56 - Subjective Subjective: Medicine note for Dr. Ashley Patient seen and examined at bedside. Patient sitting comfortably at the side of his bed having breakfast. Patient says he is feeling much better today however he is still unsteady on his feet and feels a little dizzy when he stands and walks. Patient says he has been using a bedside commode and transports with help from the nurse. He is tolerating his diet. He denies fever , chills, chest pain, SOB, abdominal pain, N&V, diarrhea, constipation, calf pain, and LE swelling. Objective - Vital Signs/Intake and Output Vital Signs (last 24 hours): Temp Pulse Resp BP Pulse Ox 98.6 F 93 H 20 120/84 97 08/13/17 23:10 08/13/17 23:10 08/13/17 23:10 08/13/17 23:10 08/13/17 23:10 Intake and Output: 08/14/17 08/14/17 06:59 18:59 Intake Total 480 Balance 480 - Medications Medications: Current Medications Clonidine HCl (Catapres) 0.1 mg PO Q4H PRN PRN Reason: Symptoms of alcohol withdrawl Last Admin: 08/11/17 21:18 Dose: 0.1 mg Folic Acid (Folic Acid) 1 mg PO DAILY [facility] Last Admin: 08/13/17 09:40 Dose: 1 mg Ketorolac Tromethamine (Toradol) 30 mg IVP Q8H [facility] Last Admin: 08/14/17 03:19 Dose: 30 mg Lorazepam (Ativan) 2 mg PO Q12H [facility] PRN Reason: Taper Stop: 08/15/17 15:59 Last Admin: 08/14/17 03:18 Dose: 2 mg Lorazepam (Ativan) 1 mg IVP Q4H PRN PRN Reason: Symptoms of alcohol withdrawl Last Admin: 08/11/17 18:39 Dose: 1 mg Multivitamins (Hexavitamin) 1 tab PO DAILY [facility] Last Admin: 08/13/17 09:40 Dose: 1 tab Pantoprazole Sodium (Protonix Ec Tab) 40 mg PO DAILY [facility] Last Admin: 08/13/17 09:40 Dose: 40 mg Pneumococcal Polyvalent Vaccine (Pneumovax 23 Vaccine) 0.5 ml IM .ONCE ONE Stop: 08/14/17 10:01 Quetiapine Fumarate (Seroquel) 100 mg PO HS [facility] Last Admin: 08/13/17 21:27 Dose: 100 mg Quetiapine Fumarate (Seroquel) 50 mg PO BID [facility] Last Admin: 08/13/17 17:03 Dose: 50 mg Thiamine HCl (Vitamin B1 Tab) 100 mg PO DAILY [facility] Last Admin: 08/13/17 09:40 Dose: 100 mg Trazodone HCl (Desyrel) 100 mg PO HS PRN PRN Reason: Insomnia - Labs Labs: 08/14/17 06:32 08/14/17 06:32 - Additional Findings Additional findings: - Constitutional Appears: Non Toxic. No Acute Distress - Head Exam Head Exam: ATRAUMATIC, NORMAL INSPECTION - Eye Exam Eye Exam: EOMI - Respiratory Exam Respiratory Exam: Clear to Auscultation Bilateral, NORMAL BREATHING PATTERN. absent: Rales, Rhonchi, Wheezes - Cardiovascular Exam Cardiovascular Exam: REGULAR RHYTHM, +S1, +S2. absent: Bradycardia, Tachycardia , JVD, Systolic Murmur - GI/Abdominal Exam GI & Abdominal Exam: Normal Bowel Sounds, Soft. absent: Distended, Firm, Guarding, Hernia, Tenderness - Extremities Exam Extremities exam: Positive for: normal inspection Additional comments: bruising lateral aspect of right arm superior to elbow swelling over right proximal tibia with bruising - Neurological Exam Neurological exam: Alert. Awake. - Psychiatric Exam Psychiatric exam: Normal mood. Normal Affect. - Skin Skin Exam: Intact, Normal Color, Warm Assessment and Plan - Assessment and Plan (Free Text) Plan: Disposition: Per Dr. Ferro, patient will need a few more days to stabilize and then be discharged with referral to rehab or self help group to prevent relapse. (1) Alcohol abuse and withdrawal Assessment and Plan: Patient with hx of alcohol use disorder, paranoia, and bipolar Psychiatry consult, Dr Ferro Aspiration precautions Seizure precautions Alcohol, Quantitative < 10 Drug screen positive for benzodiazepines F/U Ammonia level Continue to monitor for withdrawal symptoms Meds: Lactated ringer given in ED 2L once Banana bag 1L once Folic acid 1mg PO QD Multivitamin 1 tab PO QD Thiamine 100mg PO QD Librium 25mg PO in ED once Lorazepam PO Taper Status: Acute (2) Elevated LFTs Assessment and Plan: Likely secondary to alcohol abuse On admission: AST 259, ALT 146 On admission: platelet count 27 Continue to monitor Status: Acute (3) Left wrist fracture Assessment and Plan: Orthopedic consult, Dr Kendall Apply soft split to immobilize left wrist Left wrist XRAY 08/10: The trabecular markings of the distal radius concerning for a nondisplaced trabecular fracture here. Adjacent soft tissue swelling. Indeterminate focal radiolucent lesion distal radial diaphysis without endosteal cortical associated changes -significance -if any is unknown. To assess both possible scenarios, an MRI of the distal left forearm would be preferred. Status: Acute (4) Chest pain Assessment and Plan: Reproducible to palpation Initial EKG shows NSR with normal rate and without ST changes Troponin x3 Negative Status: Acute Priority: Low (5)Thrombocytopenia Assessment and Plan: Improving - Continue to monitor (6) Prophylactic measure Assessment and Plan: SCDs contraindicated due to recent fall which resulted in ankle swelling DVT anticoagulation contraindicated due to low platelet count Protonix 40mg QD Regular Diet Status: Acute Priority: Low <Matt Ashley H - Last Filed: 08/14/17 15:09> Objective - Vital Signs/Intake and Output Vital Signs (last 24 hours): Temp Pulse Resp BP Pulse Ox 98.1 F 71 20 128/86 97 08/14/17 07:30 08/14/17 08:37 08/14/17 07:30 08/14/17 07:30 08/14/17 07:30 Intake and Output: 08/14/17 08/14/17 06:59 18:59 Intake Total 480 Balance 480 - Medications Medications: Current Medications Clonidine HCl (Catapres) 0.1 mg PO Q4H PRN PRN Reason: Symptoms of alcohol withdrawl Last Admin: 08/11/17 21:18 Dose: 0.1 mg Folic Acid (Folic Acid) 1 mg PO DAILY [facility] Last Admin: 08/14/17 09:16 Dose: 1 mg Ketorolac Tromethamine (Toradol) 30 mg IVP Q8H [facility] Last Admin: 08/14/17 12:43 Dose: 30 mg Lorazepam (Ativan) 2 mg PO Q12H [facility] PRN Reason: Taper Stop: 08/15/17 15:59 Last Admin: 11/18/17 03:18 Dose: 2 mg Lorazepam (Ativan) 1 mg IVP Q4H PRN PRN Reason: Symptoms of alcohol withdrawl Last Admin: 08/11/17 18:39 Dose: 1 mg Multivitamins (Hexavitamin) 1 tab PO DAILY [facility] Last Admin: 08/14/17 09:16 Dose: 1 tab Pantoprazole Sodium (Protonix Ec Tab) 40 mg PO DAILY [facility] Last Admin: 08/14/17 09:16 Dose: 40 mg Quetiapine Fumarate (Seroquel) 100 mg PO HS [facility] Last Admin: 08/13/17 21:27 Dose: 100 mg Quetiapine Fumarate (Seroquel) 50 mg PO BID [facility] Last Admin: 08/14/17 09:16 Dose: 50 mg Thiamine HCl (Vitamin B1 Tab) 100 mg PO DAILY [facility] Last Admin: 08/14/17 09:16 Dose: 100 mg Trazodone HCl (Desyrel) 100 mg PO HS PRN PRN Reason: Insomnia - Labs Labs: 08/14/17 06:32 08/14/17 06:32 Attending/Attestation - Attestation I have personally seen and examined this patient.: Yes I have fully participated in the care of the patient.: Yes I have reviewed all pertinent clinical information, including history, physical exam and plan: Yes Notes (Text): 08/14/17 15:06 Medical attending: Patient was seen and examined by me, agrees the above note by medical device assembler. The patient did not report any acute events or concerns overnight. Still reporting having some minimal pain particularly with his left wrist that fracture. Appreciate orthopedics coming by to review the case. We will get the patient a wrist brace. On exam he did not have any shaking or tremor. He is able to stand and walk as well, he did not need any assistance he was able to walk out into the hallway. He does have a very slow affect Her continuing with the Ativan tapering that were doing at this time. Very likely will discharge the patient tomorrow Thank you very much, Matt Ashley
[2017-08-14] MEDS: Multiple Vitamins Tab PO SCH (09:16)
[2017-08-14] MEDS: Pantoprazole 40 mg EC Tab PO SCH (09:16)
[2017-08-14] MEDS ORDERED: Pneumococcal 23-Valent Vaccine IM ONE (10:00)
--- NOTE | 2017-08-14 12:28 | CP.PCM.CON ---
History of Present Illness - History of Present Illness History of Present Illness: ID: [id number] yo male CC: pain and restricted L wrist ROM HPI: pt a 52 yo male who presents after being intoxicated 5-7 days ago. Pt with hx of schizophrenia/bipolar disorder and obvious substance abuse. Pt sustained a fall on outstretched L wrist. Pt presents with fx distal radius L wrist Past Patient History - Past Medical History & Family History Past Medical History?: Yes - Past Social History Smoking Status: Never Smoked - CARDIAC Hx Cardiac Disorders: Yes Hx Hypertension: Yes - PULMONARY Hx Respiratory Disorders: No - NEUROLOGICAL Hx Neurological Disorder: No - HEENT Hx HEENT Problems: No - RENAL Hx Chronic Kidney Disease: No - ENDOCRINE/METABOLIC Hx Endocrine Disorders: No - HEMATOLOGICAL/ONCOLOGICAL Hx Blood Disorders: No - INTEGUMENTARY Hx Dermatological Problems: No - MUSCULOSKELETAL/RHEUMATOLOGICAL Hx Musculoskeletal Disorders: Yes Hx Falls: Yes (left wrist Fx 4 days ago) Hx Fractures: Yes (left wrist 4 days ago cast intact) - GASTROINTESTINAL Hx Gastrointestinal Disorders: No - GENITOURINARY/GYNECOLOGICAL Hx Genitourinary Disorders: No - PSYCHIATRIC Hx Paranoia: Yes Hx Substance Use: Yes (benzo and ETOH) - SURGICAL HISTORY Hx Surgeries: Yes Hx Herniorrhaphy: Yes - ANESTHESIA Hx Anesthesia: Yes Hx Anesthesia Reactions: No Meds Allergies/Adverse Reactions: Allergies Allergy/AdvReac Type Severity Reaction Status Date / Time No Known Allergies Allergy Verified 08/10/17 15:08 - Medications Medications: Current Medications Clonidine HCl (Catapres) 0.1 mg PO Q4H PRN PRN Reason: Symptoms of alcohol withdrawl Last Admin: 08/11/17 21:18 Dose: 0.1 mg Folic Acid (Folic Acid) 1 mg PO DAILY [facility] Last Admin: 08/14/17 09:16 Dose: 1 mg Ketorolac Tromethamine (Toradol) 30 mg IVP Q8H [facility] Last Admin: 08/14/17 03:19 Dose: 30 mg Lorazepam (Ativan) 2 mg PO Q12H ANNETTE PRN Reason: Taper Stop: 08/15/17 15:59 Last Admin: 08/14/17 03:18 Dose: 2 mg Lorazepam (Ativan) 1 mg IVP Q4H PRN PRN Reason: Symptoms of alcohol withdrawl Last Admin: 08/11/17 18:39 Dose: 1 mg Multivitamins (Hexavitamin) 1 tab PO DAILY [facility] Last Admin: 08/14/17 09:16 Dose: 1 tab Pantoprazole Sodium (Protonix Ec Tab) 40 mg PO DAILY [facility] Last Admin: 08/14/17 09:16 Dose: 40 mg Quetiapine Fumarate (Seroquel) 100 mg PO HS [facility] Last Admin: 08/13/17 21:27 Dose: 100 mg Quetiapine Fumarate (Seroquel) 50 mg PO BID [facility] Last Admin: 08/14/17 09:16 Dose: 50 mg Thiamine HCl (Vitamin B1 Tab) 100 mg PO DAILY [facility] Last Admin: 08/14/17 09:16 Dose: 100 mg Trazodone HCl (Desyrel) 100 mg PO HS PRN PRN Reason: Insomnia Physical Exam - Additional Findings Additional findings: O/E: sytemic - as per Dr Ashley Musculoskeletal stance/gait defrred Pt with sploint L upper ext N/V intact ' Results - Vital Signs Recent Vital Signs: Last Vital Signs Temp 98.1 F 08/14/17 07:30 Pulse 71 08/14/17 08:37 Resp 20 08/14/17 07:30 BP 128/86 08/14/17 07:30 Pulse Ox 97 08/14/17 07:30 - Labs Result Diagrams: 08/14/17 06:32 08/14/17 06:32 Labs: Laboratory Results - last 24 hr 08/14/17 08/14/17 06:32 06:32 WBC 5.1 RBC 3.73 L Hgb 12.0 Hct 35.0 MCV 94.0 MCH 32.2 H MCHC 34.2 RDW 16.2 H Plt Count 47 L MPV 8.1 Neut % (Auto) 55.2 Lymph % (Auto) 33.9 [facility] % (Auto) 9.0 Eos % (Auto) 1.2 Baso % (Auto) 0.7 Neut # 2.8 Lymph # 1.7 [facility] # 0.5 Eos # 0.1 Baso # 0.0 Sodium 136 Potassium 3.8 Chloride 102 Carbon Dioxide 22 Anion Gap 16 BUN 27 H Creatinine 0.8 Est GFR ( Amer) > 60 Est GFR (Non-Af Amer) > 60 Random Glucose 114 H Calcium 8.6 Phosphorus 3.3 Magnesium 1.9 Total Bilirubin 1.0 AST 253 H ALT 191 H D Alkaline Phosphatase 109 Total Protein 7.3 Albumin 4.1 Globulin 3.2 Albumin/Globulin Ratio 1.3 - Impressions Impression: Imaging- Xrays- reveal non displaced distal radius fx Assessment & Plan - Assessment and Plan (Free Text) Assessment: A- non displaced distal radius fx P short arm wrist brace
[2017-08-15 00:59] VITALS: RESP 20
[2017-08-15 07:44] LABS: BASO % 0.6 % (0.0-2.0); EOS # 0.1 K/uL (0.0-0.7); EOS % 1.4 % (0.0-4.0); HEMATOCRIT 35.4 % (35.0-51.0); LYMPH # 1.8 K/uL (1.0-4.3); LYMPH % 30.7 % (20.0-40.0); MEAN CELL VOLUME 94.6 fL (80.0-94.0); MEAN CORPUSCULAR HEMOGLOBIN 31.7 pg (27.0-31.0); MEAN CORPUSCULAR HGB CONC 33.5 g/dL (33.0-37.0); MEAN PLATELET VOLUME 7.9 fL (7.2-11.7); MONO # 0.8 K/uL (0.0-0.8); MONO % 14.1 % (0.0-10.0); RED CELL DISTRIBUTION WIDTH 16.8 % (11.5-14.5); WHITE BLOOD COUNT 5.8 K/uL (4.8-10.8)
[2017-08-15 08:10] LABS: ALB/GLOB RATIO 1.3 (1.0-2.1); ALKALINE PHOSPHATASE 90 U/L (38-126); ALT/SGPT 184 U/L (21-72); AST/SGOT 167 U/L (17-59); BLOOD UREA NITROGEN 21 mg/dL (9-20); CALCIUM 8.6 mg/dl (8.6-10.4); CARBON DIOXIDE 23 mmol/L (22-30); CHLORIDE 101 mmol/L (98-107); GFR AFRICAN-AMERICAN > 60; GLUCOSE,RANDOM 98 mg/dL (75-110); MAGNESIUM 1.7 mg/dL (1.6-2.3); PHOSPHOROUS 3.7 mg/dL (2.5-4.5); POTASSIUM 3.3 mmol/L (3.6-5.2); SODIUM 135 mmol/L (132-148); TOTAL PROTEIN 7.2 g/dL (6.3-8.3)
--- NOTE | 2017-08-15 09:16 | CP.PCM.PN ---
Subjective - Date & Time of Evaluation Date of Evaluation: 08/15/17 Time of Evaluation: 09:16 Objective - Vital Signs/Intake and Output Vital Signs (last 24 hours): Temp Pulse Resp BP Pulse Ox 99.4 F 79 20 139/90 96 08/14/17 23:15 08/14/17 23:15 08/14/17 23:15 08/14/17 23:15 08/14/17 23:15 - Medications Medications: Current Medications Clonidine HCl (Catapres) 0.1 mg PO Q4H PRN PRN Reason: Symptoms of alcohol withdrawl Last Admin: 08/11/17 21:18 Dose: 0.1 mg Folic Acid (Folic Acid) 1 mg PO DAILY [facility] Last Admin: 08/14/17 09:16 Dose: 1 mg Ketorolac Tromethamine (Toradol) 30 mg IVP Q8H [facility]NET[facility] Last Admin: 08/15/17 03:58 Dose: 30 mg Lorazepam (Ativan) 2 mg PO Q24H [facility]NETTE PRN Reason: Taper Stop: 08/15/17 15:59 Last Admin: 08/14/17 17:50 Dose: 2 mg Lorazepam (Ativan) 1 mg IVP Q4H PRN PRN Reason: Symptoms of alcohol withdrawl Last Admin: 08/11/17 18:39 Dose: 1 mg Multivitamins (Hexavitamin) 1 tab PO DAILY [facility] Last Admin: 08/14/17 09:16 Dose: 1 tab Pantoprazole Sodium (Protonix Ec Tab) 40 mg PO DAILY [facility] Last Admin: 08/14/17 09:16 Dose: 40 mg Quetiapine Fumarate (Seroquel) 100 mg PO HS [facility] Last Admin: 08/14/17 21:05 Dose: 100 mg Quetiapine Fumarate (Seroquel) 50 mg PO BID [facility] Last Admin: 08/14/17 17:46 Dose: 50 mg Thiamine HCl (Vitamin B1 Tab) 100 mg PO DAILY [facility] Last Admin: 08/14/17 09:16 Dose: 100 mg Trazodone HCl (Desyrel) 100 mg PO HS PRN PRN Reason: Insomnia - Labs Labs: 08/15/17 07:35 08/15/17 07:35
[2017-08-15 09:19] VITALS: BP 127/90; PULSE 100; TEMP 98.4; O2SAT 97
[2017-08-15] MEDS ORDERED: Potassium Chloride 20 mEq ER Tab PO ONE (09:51)
[2017-08-15] MEDS: Multiple Vitamins Tab PO SCH (09:52)
[2017-08-15] MEDS: Pantoprazole 40 mg EC Tab PO SCH (09:53)
--- NOTE | 2017-08-15 15:46 | CP.PCM.DIS ---
Provider - Provider Date of Admission: 08/12/17 13:24 Attending physician: Matt Ashley DO Primary care physician: Dr. Omer Consults: Dr. Pillo Kendall Time Spent in preparation of Discharge (in minutes): 35 Diagnosis - Discharge Diagnosis (1) Alcohol abuse Status: Acute (2) Left wrist fracture Status: Acute (3) Prophylactic measure Status: Acute Priority: Low (4) Thrombocytopenia Status: Acute Hospital Course - Lab Results Lab Results: Most Recent Lab Values WBC 5.8 K/uL (4.8-10.8) 08/15/17 07:35 RBC 3.74 Mil/uL (4.40-5.90) L 08/15/17 07:35 Hgb 11.9 g/dL (12.0-18.0) L 08/15/17 07:35 Hct 35.4 % (35.0-51.0) 08/15/17 07:35 MCV 94.6 fL (80.0-94.0) H 08/15/17 07:35 MCH 31.7 pg (27.0-31.0) H 08/15/17 07:35 MCHC 33.5 g/dL (33.0-37.0) 08/15/17 07:35 RDW 16.8 % (11.5-14.5) H 08/15/17 07:35 Plt Count 72 K/uL (130-400) L D 08/15/17 07:35 MPV 7.9 fL (7.2-11.7) 08/15/17 07:35 Neut % (Auto) 53.2 % (50.0-75.0) 08/15/17 07:35 Lymph % (Auto) 30.7 % (20.0-40.0) 08/15/17 07:35 [place] % (Auto) 14.1 % (0.0-10.0) H 08/15/17 07:35 Eos % (Auto) 1.4 % (0.0-4.0) 08/15/17 07:35 Baso % (Auto) 0.6 % (0.0-2.0) 08/15/17 07:35 Neut # 3.1 K/uL (1.8-7.0) 08/15/17 07:35 Lymph # 1.8 K/uL (1.0-4.3) 08/15/17 07:35 [place] # 0.8 K/uL (0.0-0.8) 08/15/17 07:35 Eos # 0.1 K/uL (0.0-0.7) 08/15/17 07:35 Baso # 0.0 K/uL (0.0-0.2) 08/15/17 07:35 Differential Comment 08/10/17 17:31 Sodium 135 mmol/L (132-148) 08/15/17 07:35 Potassium 3.3 mmol/L (3.6-5.2) L 08/15/17 07:35 Chloride 101 mmol/L (98-107) 08/15/17 07:35 Carbon Dioxide 23 mmol/L (22-30) 08/15/17 07:35 Anion Gap 15 (10-20) 08/15/17 07:35 BUN 21 mg/dL (9-20) H 08/15/17 07:35 Creatinine 0.7 mg/dL (0.8-1.5) L 08/15/17 07:35 Est GFR ( Amer) > 60 08/15/17 07:35 Est GFR (Non-Af Amer) > 60 08/15/17 07:35 Random Glucose 98 mg/dL (75-110) 08/15/17 07:35 Calcium 8.6 mg/dl (8.6-10.4) 08/15/17 07:35 Phosphorus 3.7 mg/dL (2.5-4.5) 08/15/17 07:35 Magnesium 1.7 mg/dL (1.6-2.3) 08/15/17 07:35 Total Bilirubin 1.0 mg/dL (0.2-1.3) 08/15/17 07:35 AST 167 U/L (17-59) H D 08/15/17 07:35 ALT 184 U/L (21-72) H 08/15/17 07:35 Alkaline Phosphatase 90 U/L (38-126) 08/15/17 07:35 Total Creatine Kinase 107 U/L (55-170) 08/11/17 03:52 CK-MB (Mass) 0.50 ng/mL (0.0-3.38) 08/11/17 03:52 Troponin I < 0.0120 ng/mL (0.00-0.120) 08/10/17 15:28 Troponin I, Quant 0.0170 ng/mL (0.00-0.120) 08/11/17 03:52 Total Protein 7.2 g/dL (6.3-8.3) 08/15/17 07:35 Albumin 4.1 g/dL (3.5-5.0) 08/15/17 07:35 Globulin 3.1 gm/dL (2.2-3.9) 08/15/17 07:35 Albumin/Globulin Ratio 1.3 (1.0-2.1) 08/15/17 07:35 Urine Color Syeda (YELLOW) 08/10/17 18:52 Urine Clarity Clear (Clear) 08/10/17 18:52 Urine pH 5.0 (5.0-8.0) 08/10/17 18:52 Ur Specific [place] 1.027 (1.003-1.030) 08/10/17 18:52 Urine Protein 2+ mg/dL (NEGATIVE) H 08/10/17 18:52 Urine Glucose (UA) Normal mg/dL (Normal) 08/10/17 18:52 Urine Ketones 2+ mg/dL (NEGATIVE) H 08/10/17 18:52 Urine Blood 1+ (NEGATIVE) H 08/10/17 18:52 Urine Nitrate Negative (NEGATIVE) 08/10/17 18:52 Urine Bilirubin Negative (NEGATIVE) 08/10/17 18:52 Urine Urobilinogen Normal mg/dL (0.2-1.0) 08/10/17 18:52 Ur Leukocyte Esterase Neg Jean Paul/uL (Negative) 08/10/17 18:52 Urine WBC (Auto) 2 /hpf (0-5) 08/10/17 18:52 Urine RBC (Auto) 12 /hpf (0-3) H 08/10/17 18:52 Ur Squamous Epith Cells < 1 /hpf (0-5) 08/10/17 18:52 Urine Bacteria Occ (<OCC) H 08/10/17 18:52 Hyaline Casts 0-2 /lpf (0-2) 08/10/17 18:52 Urine Opiates Screen Negative (NEGATIVE) 08/10/17 18:52 Urine Methadone Screen Negative (NEGATIVE) 08/10/17 18:52 Ur Barbiturates Screen Negative (NEGATIVE) 08/10/17 18:52 Ur Phencyclidine Scrn Negative (NEGATIVE) 08/10/17 18:52 Ur Amphetamines Screen Negative (NEGATIVE) 08/10/17 18:52 U Benzodiazepines Scrn Positive (NEGATIVE) 08/10/17 18:52 U Oth Cocaine Metabols Negative (NEGATIVE) 08/10/17 18:52 U Cannabinoids Screen Negative (NEGATIVE) 08/10/17 18:52 Alcohol, Quantitative < 10 mg/dl (0-10) 08/10/17 15:28 - Hospital Course Hospital Course: Upon admission: This is a 52 year old Lebanese male with a PMHx of Paranoia, Bipolar Disorder, HTN who was BIBA and presents to the ER with a 24 hour history of nausea, dizziness and chest pain. He describes the chest pain as pressure-like located mid-sternal, rated 5/10, that is not pleuritic. He took a tylenol that did not provide relief. He is a heavy drinker and drinks 1 pint of vodka a day with his last drink 36 hours ago. The patient had similar symptoms 3 months ago and spent 3 days at [facility]. Also, the patient was seen at [facility] ER 5 days ago for a fall he suffered in a stairwell due to alcohol intoxication, he was told he had a fractured wrist but the patient did not follow-up as advised. He also twisted his right ankle which did not fracture. Today he also endorses constipation and cannot recall when his last bowel movement was. He denies shortness of breath, hallucinations, focal deficits, suicidal ideation, homicidal ideation, fever, chills, vomiting, abdominal pain. Hospital Course: Patient was admitted to the hospital for alcohol withdrawal. Psychiatry was consulted (Dr. Ferro) as patient also has a history of paranoia and bipolar disorder. Alcohol level was <10.Drug screen was positive for benzodiazepines. Patinet was placed on aspiration and seizure precautions. He was treated with an ativan taper, librium, banana bag, folic acid, thiamine, and multivitamin. Patient's platelet count was found to be low on admission. This was monitored and it improved on its own. Patient had ROMIs drawn on admission for chest pain which came back negative x3. EKG showed NSR with normal rate and without ST changes. This pain was reproducible and unlikely OK. Dr. Kendall was consulted for left wrist fracture. Left wrist (XRAY 08/10) showed trabecular markings of the distal radius concerning for a nondisplaced trabecular fracture, adjacent soft tissue swelling, and indeterminate focal radiolucent lesion of distal radial diaphysis without endosteal cortical associated changes. Patient was placed in a soft splint which was later changed to a short arm wrist brace. Upon Discharge: Patient clear for discharge per Dr. Ashley. Patient was discharge with the following instructions: Please follow up with you primary doctor (Dr. Omer) within one week of discharge. Please continue your regular home medications. Please wear the short arm wrist brace for 5 more weeks. Please use walker when walking for support. Please follow up with an AA group for meetings and support for alcohol use cessation. Please note that this is a summary of events. For more details please see complete medical record. Discharge Exam - Head Exam Head Exam: ATRAUMATIC, NORMAL INSPECTION - Eye Exam Eye Exam: EOMI, Normal appearance - ENT Exam ENT Exam: Mucous Membranes Moist - Respiratory Exam Respiratory Exam: Clear to PA & Lateral, NORMAL BREATHING PATTERN, UNREMARKABLE - Cardiovascular Exam Cardiovascular Exam: REGULAR RHYTHM - GI/Abdominal Exam GI & Abdominal Exam: Normal Bowel Sounds, Unremarkable - Extremities Exam Extremities exam: normal inspection - Neurological Exam Neurological exam: Alert, Oriented x3 Additional comments: slow but steady gait - Psychiatric Exam Psychiatric exam: Normal Affect, Normal Mood - Skin Skin Exam: Dry, Intact, Normal Color, Warm Discharge Plan - Follow Up Plan Condition: STABLE Disposition: HOME/ ROUTINE Instructions: Wrist Fracture in Adults (DC), Alcohol Intoxication (DC), Abuse of Alcohol (DC), At-Risk Alcohol Use (DC), Alcohol Withdrawal (DC) Additional Instructions: Please follow up with you primary doctor (Dr. Omer) within one week of discharge. Please continue your regular home medications. Please wear the short arm wrist brace for 5 more weeks. Please follow up with an AA group for meetings and support for alcohol use cessation. Referrals: Alcoholics Anonymous [Outside]
== END 2017-08-15 16:15 | disposition home or self-care (01) | DRG 897 ==
LOC: C.ER 14:12 → C.9E 17:07 → C.6T 19:45 → OBSVTOIN 08-12 13:24 → MERGE 08-12 13:24
PROVIDERS: ADMIT Hospitalist; ATTEND Hospitalist
DX: F10.230 Alcohol dependence with withdrawal, uncomplicated (principal); D69.59 Other secondary thrombocytopenia; K70.9 Alcoholic liver disease, unspecified; R07.89 Other chest pain; F20.9 Schizophrenia, unspecified; F22 Delusional disorders; F31.9 Bipolar disorder, unspecified; I10 Essential (primary) hypertension; K59.00 Constipation, unspecified; S52.592D Other fractures of lower end of left radius, subsequent encounter for closed fracture with routine healing; W19.XXXD Unspecified fall, subsequent encounter; Z87.891 Personal history of nicotine dependence

== ENCOUNTER 2017-09-16 11:52 | Inpatient (IN) | payer SELFPAY ==
[2017-09-16 11:52] VITALS: BMI 28.3
--- NOTE | 2017-09-16 12:08 | C.PDOC ---
History Of Present Illness 52 y/o male, with history of alcoholism, presents to the ER complaining of chest pressure and dizziness which began in the morning. Patient states that his last drink was 2 days ago. Patient states that he did not drink or eat yesterday. Chief Complaint (Nursing): Chest Pain History Per: Patient History/Exam Limitations: no limitations Onset/Duration Of Symptoms: Hrs Current Symptoms Are (Timing): Still Present Severity: Moderate Past Medical History Reviewed: Historical Data, Nursing Documentation, Vital Signs Vital Signs: Last Vital Signs Temp 98.2 F 09/16/17 17:15 Pulse 81 09/16/17 17:15 Resp 18 09/16/17 17:15 BP 125/76 09/16/17 17:15 Pulse Ox 96 09/16/17 19:37 - Medical History PMH: Fractures (left wrist 4 days ago cast intact), HTN, Paranoia, Seizures Denies: Chronic Kidney Disease Surgical History: Hernia Repair Family History: States: No Known Family Hx - Social History Hx Alcohol Use: Yes Hx Substance Use: No - Immunization History Hx Tetanus Toxoid Vaccination: No Hx Influenza Vaccination: No Hx Pneumococcal Vaccination: No Review Of Systems Except As Marked, All Systems Reviewed And Found Negative. Cardiovascular: Positive for: Chest Pain (chest pressure) Neurological: Positive for: Dizziness Physical Exam - Physical Exam Appears: No Acute Distress, Other (tremors) Skin: Normal Color, Warm Head: Atraumatic, Normacephalic Eye(s): bilateral: Normal Inspection Tongue: Other (strong ketone smell) Neck: Supple Chest: Symmetrical Cardiovascular: Rhythm Regular, No Murmur Respiratory: Normal Breath Sounds Gastrointestinal/Abdominal: Normal Exam, Soft, No Tenderness Extremity: Normal ROM, No Pedal Edema Neurological/Psych: Oriented x3, Normal Speech, Normal Cognition ED Course And Treatment - Laboratory Results Result Diagrams: 09/16/17 13:26 09/16/17 13:26 ECG Rhythm: Sinus Tachycardia ECG Interpretation: No Acute Changes Rate From EC O2 Sat by Pulse Oximetry: 96 (RA) Pulse Ox Interpretation: Normal - Other Rad No standard instances X-Ray: Interpreted by Me, Viewed By Me Interpretation: PROCEDURE: CHEST RADIOGRAPH, 1 VIEW. HISTORY: SOB, CP. COMPARISON: None available. FINDINGS: LUNGS: The lungs are clear. PLEURA: No pneumothorax or pleural fluid seen. CARDIOVASCULAR: Normal. OSSEOUS STRUCTURES: No significant abnormalities. VISUALIZED UPPER ABDOMEN: Normal. OTHER FINDINGS: None. IMPRESSION: No active pulmonary disease. Medical Decision Making Medical Decision Making: Impression: Chest Pain and Dizziness Plan: -- Librium --Banana Bag --Labs --CXR Results: CXR- Normal Labs - Significant for low platelet levels ( 57), high ALT levels ( 152), alcohol levels (12) Case was discussed with Hospitalist who accepted patient for an admission. Disposition - Disposition Disposition: HOSPITALIZED Disposition Time: 14:40 Condition: FAIR - Clinical Impression Clinical Impression: Alcohol withdrawal, Chest pain - PA / HEADLIGHT ADJUSTER / Resident Statement MD/DO has reviewed & agrees with the documentation as recorded. - Scribe Statement The provider has reviewed the documentation as recorded by the Khurram Ramírez Provider Attestation All medical record entries made by the Khurram were at my direction and personally dictated by me. I have reviewed the chart and agree that the record accurately reflects my personal performance of the history, physical exam, medical decision making, and the department course for this patient. I have also personally directed, reviewed, and agree with the discharge instructions and disposition. Decision To Admit - Pt Status Changed To: Hospital Disposition Of: Inpatient - Admit Certification Admit to Inpatient:: After my assessment, the patient will require hospitalization for at least two midnights. This is because of the severity of symptoms shown, intensity of services needed, and/or the medical risk in this patient being treated as an outpatient. - InPatient: Physician Admission Certification: I certify that this patient requires 2 or more midnights of care for the following reason:: Pt will need more than 2 days of hospitalization. - . Bed Request Type: Telemetry Patient Diagnosis: Alcohol withdrawal, Chest pain
[2017-09-16] MEDS ORDERED: Sodium Chloride 0.9% 1,000 ML IV STA (13:19)
[2017-09-16] MEDS ORDERED: Sodium Chloride 0.9% 1,000 ML ONE (13:29)
[2017-09-16] MEDS ORDERED: Folic Acid 1 MG, Thiamine 100 MG, Multivitamin (MVI) 10 ML in Dextrose 5% In Water 1,00... IV SCH (13:30)
--- NOTE | 2017-09-16 13:31 | RAD ---
PROCEDURE: CHEST RADIOGRAPH, 1 VIEW HISTORY: SOB, CP COMPARISON: None available. FINDINGS: LUNGS: The lungs are clear. PLEURA: No pneumothorax or pleural fluid seen. CARDIOVASCULAR: Normal. OSSEOUS STRUCTURES: No significant abnormalities. VISUALIZED UPPER ABDOMEN: Normal. OTHER FINDINGS: None. IMPRESSION: No active pulmonary disease.
[2017-09-16 13:36] LABS: BASO # 0.1 K/uL (0.0-0.2); BASO % 1.1 % (0.0-2.0); EOS % 0.2 % (0.0-4.0); HEMATOCRIT 37.7 % (35.0-51.0); LYMPH # 1.1 K/uL (1.0-4.3); LYMPH % 23.1 % (20.0-40.0); MEAN CORPUSCULAR HEMOGLOBIN 31.9 pg (27.0-31.0); MEAN CORPUSCULAR HGB CONC 35.2 g/dL (33.0-37.0); MEAN PLATELET VOLUME 8.4 fL (7.2-11.7); MONO # 0.2 K/uL (0.0-0.8); MONO % 3.2 % (0.0-10.0); NRBC % 0.1 % (0.0-2.0); RED CELL DISTRIBUTION WIDTH 14.9 % (11.5-14.5); WHITE BLOOD COUNT 4.8 K/uL (4.8-10.8)
[2017-09-16 13:40] LABS: INR 1.1
[2017-09-16 13:49] LABS: ALCOHOL SERUM 12 mg/dl (0-10); ALKALINE PHOSPHATASE 86 U/L (38-126); ALT/SGPT 152 U/L (21-72); AST/SGOT 341 U/L (17-59); BILIRUBIN,TOTAL 2.1 mg/dL (0.2-1.3); BLOOD UREA NITROGEN 12 mg/dL (9-20); CALCIUM 8.6 mg/dl (8.6-10.4); CARBON DIOXIDE 23 mmol/L (22-30); CHLORIDE 88 mmol/L (98-107); GFR AFRICAN-AMERICAN > 60; GLUCOSE,RANDOM 86 mg/dL (75-110); POTASSIUM 4.6 mmol/L (3.6-5.2); SODIUM 131 mmol/L (132-148); TOTAL PROTEIN 9.3 g/dL (6.3-8.3)
[2017-09-16 13:52] LABS: MEAN CELL VOLUME 90.8 fL (80.0-94.0)
[2017-09-16] MEDS ORDERED: Folic Acid 1 MG, Thiamine 100 MG, Multivitamin (MVI) 10 ML in Dextrose 5% In Water 1,00... IV ONE (14:00)
[2017-09-16 14:28] LABS: RBC URINE 2 /hpf (0-3); URINE BILIRUBIN NEGATIVE (NEGATIVE); URINE BLOOD NEGATIVE (NEGATIVE); URINE COLOR Amber (YELLOW); URINE GLUCOSE (UA) NORMAL (Normal); URINE KETONE 2+ mg/dL (NEGATIVE); URINE LEUKOCYTE ESTERASE NEG Leu/uL (Negative); URINE PROTEIN 2+ mg/dL (NEGATIVE); WBC URINE 1 /hpf (0-5)
--- NOTE | 2017-09-16 16:50 | CP.PCM.HP ---
<Preston Rodrigues - Last Filed: 09/16/17 16:20> History of Present Illness - History of Present Illness History of Present Illness: PGY1 History and Physical for Dr. Poe CC: Chest pain Patient is a 52 year old male with a past medical history of Paranoia and Bipolar Disorder presents to the ER with chest pain. He describes the chest pain as pressure located mid-sternally, rated 7/10. The pain does not radiate. He did not take anything. Nothing makes the pain better. The pain is worse when he presses on his chest. The pain is reproducible. He is a heavy drinker and drinks 1/2 to 1 pint of vodka a day with his last drink was 2 days ago. The patient had similar symptoms multiple times before including one month prior when he was admitted to [facility] Patient also complains of left wrist pain. He fractured left wrist prior to his last visit a month ago but never followed up. He denies any fevers, chills, nausea, vomiting, diarrhea, constipation, lightheadedness, dizziness, hallucinations or suicidal ideation. PMD: Dr Omer (PMD in [place], patient last saw PMD 2 months ago) PMH: Paranoia, Bipolar Disorder, HTN PSH: denied Allergies: NKDA Home Medications: Trazadone 50mg HS, Seroquel 1 tablet BID, Rispiradone 5mg QD Family: Father from [place] @75 yo, Mother with DM2 Social: Smoked 1 ppd for 3 years, drinks 1 pint of vodka daily, denies illicit drug use Present on Admission - Present on Admission Any Indicators Present on Admission: No Review of Systems - Review of Systems All systems: reviewed and no additional remarkable complaints except (as per HPI ) Past Patient History - Past Medical History & Family History Past Medical History?: Yes - Past Social History Smoking Status: Former Smoker - CARDIAC Hx Hypertension: Yes - PULMONARY Hx Respiratory Disorders: No - NEUROLOGICAL Hx Seizures: Yes - HEENT Hx HEENT Problems: No - RENAL Hx Chronic Kidney Disease: No - ENDOCRINE/METABOLIC Hx Endocrine Disorders: No - HEMATOLOGICAL/ONCOLOGICAL Hx Blood Disorders: No - INTEGUMENTARY Hx Dermatological Problems: No - MUSCULOSKELETAL/RHEUMATOLOGICAL Hx Fractures: Yes (left wrist 4 days ago cast intact) - GASTROINTESTINAL Hx Gastrointestinal Disorders: No - GENITOURINARY/GYNECOLOGICAL Hx Genitourinary Disorders: No - PSYCHIATRIC Hx Paranoia: Yes Hx Substance Use: No - SURGICAL HISTORY Hx Surgeries: Yes Hx Herniorrhaphy: Yes (left) - ANESTHESIA Hx Anesthesia: Yes Hx Anesthesia Reactions: No Meds Allergies/Adverse Reactions: Allergies Allergy/AdvReac Type Severity Reaction Status Date / Time No Known Allergies Allergy Verified 09/16/17 12:01 Physical Exam - Constitutional Appears: Non-toxic, No Acute Distress - Head Exam Head Exam: ATRAUMATIC, NORMOCEPHALIC - Eye Exam Eye Exam: EOMI, Scleral icterus - ENT Exam ENT Exam: Mucous Membranes Moist - Respiratory Exam Respiratory Exam: Clear to Auscultation Bilateral, NORMAL BREATHING PATTERN. absent: Accessory Muscle Use, Rales, Rhonchi, Wheezes, Respiratory Distress - Cardiovascular Exam Cardiovascular Exam: Tachycardia, REGULAR RHYTHM, +S1 - GI/Abdominal Exam GI & Abdominal Exam: Normal Bowel Sounds, Soft. absent: Distended, Firm, Guarding, Hernia, Rigid, Tenderness - Extremities Exam Extremities exam: Positive for: joint swelling (left wrist), tenderness (left wrist, pain with flexion and extension.), pedal pulses present. Negative for: calf tenderness, pedal edema - Neurological Exam Neurological exam: Alert, Oriented x3 - Psychiatric Exam Psychiatric exam: Normal Affect, Normal Mood - Skin Skin Exam: Dry, Normal Color, Warm Results - Vital Signs Recent Vital Signs: Last Vital Signs Temp 97.5 F L 09/16/17 12:02 Pulse 86 09/16/17 14:18 Resp 21 09/16/17 14:18 BP 140/87 09/16/17 14:18 Pulse Ox 96 09/16/17 15:21 - Labs Result Diagrams: 09/16/17 13:26 09/16/17 13:26 Labs: Laboratory Results - last 24 hr 09/16/17 09/16/17 09/16/17 12:27 13:26 13:26 WBC 4.8 RBC 4.15 L Hgb 13.2 Hct 37.7 MCV 90.8 D MCH 31.9 H MCHC 35.2 RDW 14.9 H Plt Count 57 L MPV 8.4 Neut % (Auto) 72.4 Lymph % (Auto) 23.1 [place] % (Auto) 3.2 Eos % (Auto) 0.2 Baso % (Auto) 1.1 Neut # 3.5 Lymph # 1.1 [place] # 0.2 Eos # 0.0 Baso # 0.1 Differential Comment PT INR APTT Sodium 131 L Potassium 4.6 Chloride 88 L Carbon Dioxide 23 Anion Gap 24 H BUN 12 Creatinine 0.7 L Est GFR ( Amer) > 60 Est GFR (Non-Af Amer) > 60 POC Glucose (mg/dL) 92 Random Glucose 86 Calcium 8.6 Total Bilirubin 2.1 H AST 341 H D ALT 152 H Alkaline Phosphatase 86 Total Creatine Kinase 210 H CK-MB (Mass) 2.08 Troponin I < 0.0120 Total Protein 9.3 H Albumin 4.8 Globulin 4.6 H Albumin/Globulin Ratio 1.0 Urine Color Urine Clarity Urine pH Ur Specific [place] Urine Protein Urine Glucose (UA) Urine Ketones Urine Blood Urine Nitrate Urine Bilirubin Urine Urobilinogen Ur Leukocyte Esterase Urine WBC (Auto) Urine RBC (Auto) Ur Squamous Epith Cells Hyaline Casts Urine Opiates Screen Urine Methadone Screen Ur Barbiturates Screen Ur Phencyclidine Scrn Ur Amphetamines Screen U Benzodiazepines Scrn U Oth Cocaine Metabols U Cannabinoids Screen Alcohol, Quantitative 12 H 09/16/17 09/16/17 09/16/17 13:26 13:43 13:43 WBC RBC Hgb Hct MCV MCH MCHC RDW Plt Count MPV Neut % (Auto) Lymph % (Auto) [place] % (Auto) Eos % (Auto) Baso % (Auto) Neut # Lymph # [place] # Eos # Baso # Differential Comment PT 11.9 INR 1.1 APTT 32 Sodium Potassium Chloride Carbon Dioxide Anion Gap BUN Creatinine Est GFR ( Amer) Est GFR (Non-Af Amer) POC Glucose (mg/dL) Random Glucose Calcium Total Bilirubin AST ALT Alkaline Phosphatase Total Creatine Kinase CK-MB (Mass) Troponin I Total Protein Albumin Globulin Albumin/Globulin Ratio Urine Color [place] Urine Clarity Clear Urine pH 6.0 Ur Specific [place] 1.027 Urine Protein 2+ H Urine Glucose (UA) Normal Urine Ketones 2+ H Urine Blood Negative Urine Nitrate Negative Urine Bilirubin Negative Urine Urobilinogen 2.0 Ur Leukocyte Esterase Neg Urine WBC (Auto) 1 Urine RBC (Auto) 2 Ur Squamous Epith Cells < 1 Hyaline Casts 3-5 H Urine Opiates Screen Negative Urine Methadone Screen Negative Ur Barbiturates Screen Negative Ur Phencyclidine Scrn Negative Ur Amphetamines Screen Negative U Benzodiazepines Scrn Negative U Oth Cocaine Metabols Negative U Cannabinoids Screen Negative Alcohol, Quantitative Assessment & Plan - Assessment and Plan (Free Text) Plan: Alcohol abuse Patient with hx of alcohol use disorder Psychiatry consult, Dr Gold Fall precautions Alcohol, Quantitative 12 drug screen - negative Meds: Banana bag 1L once Folic acid 1mg PO QD Multivitamin 1 tab PO QD Thiamine 100mg PO QD Librium 50mg dose in ED once (additional 25mg dose given due to patient beginning to have tremors) Librium PO Taper Ativan 1mg PO q6h PRN Elevated LFTs Likely secondary to alcohol abuse On admission: AST 341, ALT 152 On admission: platelet count 57 Continue to monitor hx of paranoia and bipolar Continue home Seroquel 150mg PO HS Continue home Trazodone 100mg PO HS hx of left wrist fracture Left wrist xray 08/10: The trabecular markings of the distal radius concerning for a nondisplaced trabecular fracture here. Adjacent soft tissue swelling. Indeterminate focal radiolucent lesion distal radial diaphysis without endosteal cortical associated changes -significance -if any is unknown. To assess both possible scenarios, an MRI of the distal left forearm would be preferred. f/u repeat left wrist xray Chest pain Reproducible to palpation Initial EKG shows NSR with normal rate and without ST changes Troponin x1 Negative F/U MAEVE panel x2 Prophylactic measure DVT anticoagulation contraindicated due to low platelet count Protonix 40mg QD heart healthy diet Case discussed with Dr. Lui Johnston Ravi PGY1 <Lauren Poe V - Last Filed: 09/18/17 19:09> Results - Vital Signs Recent Vital Signs: Last Vital Signs Temp 97.4 F L 09/18/17 15:41 Pulse 84 09/18/17 15:41 Resp 20 09/18/17 15:41 BP 155/108 H 09/18/17 15:41 Pulse Ox 98 09/18/17 15:41 - Labs Result Diagrams: 09/18/17 08:13 09/18/17 08:13 Labs: Laboratory Results - last 24 hr 09/17/17 09/18/17 09/18/17 21:19 08:13 08:13 WBC 3.8 L RBC 4.06 L Hgb 12.8 Hct 37.0 MCV 91.2 MCH 31.5 H MCHC 34.6 RDW 15.4 H Plt Count 33 L MPV 8.4 Neut % (Auto) 44.1 L Lymph % (Auto) 47.1 H [place] % (Auto) 5.3 Eos % (Auto) 2.3 Baso % (Auto) 1.2 Neut # 1.7 L Lymph # 1.8 [place] # 0.2 Eos # 0.1 Baso # 0.0 Sodium 137 Potassium 3.3 L Chloride 99 Carbon Dioxide 26 Anion Gap 14 BUN 12 Creatinine 0.6 L Est GFR ( Amer) > 60 Est GFR (Non-Af Amer) > 60 POC Glucose (mg/dL) 248 H Random Glucose 120 H Calcium 9.3 Magnesium 1.9 Total Bilirubin 1.0 AST 119 H D ALT 88 H Alkaline Phosphatase 95 Total Protein 8.4 H Albumin 4.1 Globulin 4.1 H Albumin/Globulin Ratio 1.0 Attending/Attestation - Attestation I have personally seen and examined this patient.: Yes I have fully participated in the care of the patient.: Yes I have reviewed all pertinent clinical information: Yes Notes (Text): This is a late computer entry for 09/16/2017. Patient seen and examined in [facility] emergency room bed 1 at approximately 4:20 PM. Patient knows the hospitalist service. Patient with a known history of alcohol abuse. Patient reports last drink was approximately 2 days ago. Patient on exam is clearly tremulous. Patient has already received a dose of Librium prior to my exam. Patient denies hallucinations and patient denies delusions. Patient is thrombocytopenic likely secondary to alcohol abuse, no acute episodes of bleeding, and no petechiae on exam. Patient is a [place] resident however is visiting a friend in [place] and [place]. Patient started on a Librium taper will consult psych in light of both his alcohol abuse and history of paranoia bipolar disorder. Patient had been banana bag. Patient reports chest pain however it does not appear to be ischemic in nature. I do believe is related to his alcohol abuse and withdrawal. Will order EKGs and cardiac enzymes. Will place patient on telemetry for further monitoring. Patient has a history of left wrist fracture seen in prior visits patient was recommended to follow-up at [facility] where he lives close by but never did. Patient was seen by orthopedic and a prior admission and was recommended for splint however patient is currently not wearing splint repeat left wrist x-ray. I have discussed admitting orders with daytime resident. I have discussed and agree with assessment and plan as written by the resident. Assessment/Plan 1) Alcohol abuse, Alcohol Withdrawal * Patient with hx of alcohol use disorder * Psychiatry consult, Dr Gold on case * Fall precautions * Alcohol, Quantitative 12 * drug screen - negative Meds: Banana bag 1L once * Folic acid 1mg PO QD * Multivitamin 1 tab PO QD * Thiamine 100mg PO QD * Librium 50mg dose in ED once (additional 25mg dose given due to patient beginning to have tremors) * Librium PO Taper * Ativan 1mg PO q6h PRN 2) Elevated LFTs * Likely secondary to alcohol abuse * On admission: AST 341, ALT 152 * On admission: platelet count 57 * Continue to monitor 3) Hx of paranoia and bipolar * Psychiatry consult, Dr Gold on case * Continue home Seroquel 150mg PO HS * Continue home Trazodone 100mg PO HS 4) Hx of left wrist fracture * Left wrist xray 08/10: The trabecular markings of the distal radius concerning for a nondisplaced trabecular fracture here. Adjacent soft tissue swelling. Indeterminate focal radiolucent lesion distal radial diaphysis without endosteal cortical associated changes -significance -if any is unknown. To assess both possible scenarios, an MRI of the distal left forearm would be preferred. * f/u repeat left wrist xray 5) Chest pain * likely secondary to alcohol withdrawal * Reproducible to palpation * Initial EKG shows NSR with normal rate and without ST changes * Troponin x1 Negative * F/U MAEVE panel x2 * Observe on telemetry 6) Prophylactic measure * DVT anticoagulation contraindicated due to low platelet count * Protonix 40mg QDaily * heart healthy diet
[2017-09-16] MEDS: QUEtiapine 150 mg XR Tab PO SCH (22:11)
[2017-09-17 07:27] LABS: EOS # 0.1 K/uL (0.0-0.7); EOS % 1.6 % (0.0-4.0); HEMATOCRIT 37.3 % (35.0-51.0); LYMPH # 1.9 K/uL (1.0-4.3); LYMPH % 52.5 % (20.0-40.0); MEAN CELL VOLUME 90.5 fL (80.0-94.0); MEAN CORPUSCULAR HEMOGLOBIN 31.7 pg (27.0-31.0); MEAN PLATELET VOLUME 8.1 fL (7.2-11.7); MONO # 0.1 K/uL (0.0-0.8); MONO % 3.3 % (0.0-10.0); NRBC % 0.1 % (0.0-2.0); RED CELL DISTRIBUTION WIDTH 15.7 % (11.5-14.5); WHITE BLOOD COUNT 3.7 K/uL (4.8-10.8)
[2017-09-17 08:28] LABS: ALB/GLOB RATIO 1.4 (1.0-2.1); ALKALINE PHOSPHATASE 65 U/L (38-126); ALT/SGPT 97 U/L (21-72); AST/SGOT 162 U/L (17-59); BILIRUBIN,TOTAL 2.3 mg/dL (0.2-1.3); BLOOD UREA NITROGEN 11 mg/dL (9-20); CALCIUM 8.7 mg/dl (8.6-10.4); CARBON DIOXIDE 24 mmol/L (22-30); CHLORIDE 97 mmol/L (98-107); CHOLESTEROL 199 mg/dL (0-199); GFR AFRICAN-AMERICAN > 60; GLUCOSE,RANDOM 95 mg/dL (75-110); POTASSIUM 3.7 mmol/L (3.6-5.2); SODIUM 132 mmol/L (132-148); TOTAL PROTEIN 7.2 g/dL (6.3-8.3)
[2017-09-17 08:57] LABS: THYROID STIMULATING HORMONE 2.33 mIU/L (0.46-4.68)
[2017-09-17] MEDS: Multiple Vitamins Tab PO SCH (09:38)
[2017-09-17] MEDS ORDERED: Pantoprazole 40 mg EC Tab PO SCH (10:00)
--- NOTE | 2017-09-17 11:27 | PCM.PSYCH ---
Initial Psychiatric Evaluation - Initial Psychiatric Evaluation Type of Admission: Voluntary Chief Complaint (in patient's own words): "I am depressed" History of Present Illness and Precipitating Events: Pt is seen, chart reviewed and case discussed. Consult was asked for his alcohol withdrawal. Patient is a 52 year old [place] male, but , has two adult children, who lives in [place] with their mom. Patient lives alone in [place], has been living in the for 7 years. Patient's level of education is up to 2nd year of college. 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 Two admissions. No suicide attempt. Medical Hx: HTN Family Hx: Father from [place] @75 yo, Mother with DM2 Current Medications: Active Medications Generic Name Dose Route Start Last Admin Trade Name Freq PRN Reason Stop Dose Admin Chlordiazepoxide 25 mg 09/16/17 22:30 09/17/17 05:49 Librium PO 09/20/17 22:29 25 mg Q6 ANNETTE Administration Taper Famotidine 20 mg 09/17/17 10:00 09/17/17 09:38 Pepcid PO 20 mg DAILY ANNETTE Administration Folic Acid 1 mg 09/17/17 10:00 09/17/17 09:38 Folic Acid PO 1 mg DAILY ANNETTE Administration Lorazepam 1 mg 09/16/17 16:32 09/17/17 01:13 Ativan PO 1 mg Q6H PRN Administration Symptoms of alcohol withdrawl Multivitamins 1 tab 09/17/17 10:00 09/17/17 09:38 Hexavitamin PO 1 tab DAILY ANNETTE Administration Quetiapine Fumarate 150 mg 09/16/17 22:00 09/16/17 22:11 Seroquel Xr PO 150 mg HS ANNETTE Administration Thiamine HCl 100 mg 09/17/17 10:00 09/17/17 09:38 Vitamin B1 Tab PO 100 mg DAILY ANNETTE Administration Trazodone HCl 100 mg 09/16/17 22:00 09/16/17 22:06 Desyrel PO 100 mg HS ANNETTE Administration Past Psychiatric History - Past Psychiatric History Pertinent Medical Hx (Current Medical&Sleep Prob, Allergies): Allergies Allergy/AdvReac Type Severity Reaction Status Date / Time No Known Allergies Allergy Verified 09/16/17 12:01 No Known Home Med 09/16/17 Review of Systems - Neurological Neurological: Lack of Coordination, Tremor, Weakness - Psychiatric Psychiatric: Depression. absent: Anxiety, Auditory Hallucinations, Hallucinations, Panic Attacks, Paranoia, Suicidal Ideation, Visual Hallucinations, Tactile Hallucinations Mental Status Examination - Personal Presentation Personal Presentation: Looks stated age, Impairment in gait Additional comments: Unsteady Gait - Affect Affect: Depressed - Motor Activity Motor Activity: Calm, Psychomotor Agitation Additional comments: Restless - Reliability in Providing Information Reliability in Providing Information: Poor, due to cognitve impairment - Speech Speech: Organized - Mood Mood: Depressed - Formal Thought Process Formal Thought Process: No Impairment - Obsessions/Compulsions Obsessions: No Compulsions: No - Cognitive Functions Orientation: Person, Place, Situation Sensorium: Alert Attention/Concentration: Easily distracted Judgement: Imparied, as evidence by: Lack of insight into illness Memory: Recent impaired, as evidence by: Inability to recall events of the day - Risk Risk: Withdrawal, Falls - Strength & Assets Inventory Strength & Assets Inventory: Cooperative - Limitations Limitations: Living alone DSM 5 DX - DSM 5 DSM 5 Diagnosis: Bipolar disorder - unspecified Alcohol withdrawal Alcohol use d/o - severe Depression - Recommended/Plan of Treatment Treatment Recommendations and Plan of Treatment: Librium Taper Ativan 1mg IV Q6H prn Gabapentin 300mg PO TID Thiamine 100mg PO daily Folic acid 1mg PO daily Trazadone 100mg PO daily Multivitamins 1 tab PO daily Seroquel 150mg PO HS for bipolar disorder replase prevention As needed medications Refer to rehab or IOP and self-help groups Upon discharge, patient is agreeable to go to [facility] 34 min
--- NOTE | 2017-09-17 11:31 | RAD ---
PROCEDURE: Left Wrist Radiographs. HISTORY: possible nondisplaced fx on previous xray COMPARISON: None. FINDINGS: BONES: There is an acute transverse comminuted intra-articular fracture in the distal radius. No significant angulation. JOINTS: Normal. No dislocation. SOFT TISSUES: Mild soft tissue swelling in the wrist joint. OTHER FINDINGS: None. IMPRESSION: Acute transverse comminuted intra-articular fracture in the distal radius and soft tissue swelling in the wrist joint.
[2017-09-17 16:05] VITALS: RESP 20
--- NOTE | 2017-09-17 17:06 | CP.PCM.PN ---
<Ephraim Bridges R - Last Filed: 09/17/17 16:56> Subjective - Date & Time of Evaluation Date of Evaluation: 09/17/17 Time of Evaluation: 15:30 - Subjective Subjective: PGY-[address] Bowen. No acute events overnight noted. Patient complained of chest pain and palpitations. He was still having asterixis. Patient denies, abdominal pain, shortness of breath, nausea, vomiting, fever, chills, diarrhea. Objective - Vital Signs/Intake and Output Vital Signs (last 24 hours): Temp Pulse Resp BP Pulse Ox 98.0 F 127 H 20 134/98 H 99 09/17/17 15:16 09/17/17 15:16 09/17/17 15:16 09/17/17 15:16 09/17/17 15:16 Intake and Output: 09/17/17 09/17/17 06:59 18:59 Intake Total 430 600 Balance 430 600 - Medications Medications: Current Medications Chlordiazepoxide (Librium) 25 mg PO Q6 [facility] PRN Reason: Taper Stop: 09/20/17 22:29 Last Admin: 09/17/17 14:06 Dose: 25 mg Famotidine (Pepcid) 20 mg PO DAILY [facility] Last Admin: 09/17/17 09:38 Dose: 20 mg Folic Acid (Folic Acid) 1 mg PO DAILY [facility] Last Admin: 09/17/17 09:38 Dose: 1 mg Gabapentin (Neurontin) 300 mg PO BID [facility] Lorazepam (Ativan) 1 mg IVP Q6H PRN PRN Reason: Seizure activity Multivitamins (Hexavitamin) 1 tab PO DAILY [facility] Last Admin: 09/17/17 09:38 Dose: 1 tab Quetiapine Fumarate (Seroquel Xr) 150 mg PO HS [facility] Last Admin: 09/16/17 22:11 Dose: 150 mg Thiamine HCl (Vitamin B1 Tab) 100 mg PO DAILY [facility] Last Admin: 09/17/17 09:38 Dose: 100 mg Trazodone HCl (Desyrel) 100 mg PO HS [facility] Last Admin: 09/16/17 22:06 Dose: 100 mg - Labs Labs: 09/17/17 07:09 09/17/17 07:09 PT 11.9 SECONDS (9.7-12.2) 12/21/17 13:26 INR 1.1 09/16/17 13:26 APTT 32 SECONDS (21-34) 09/16/17 13:26 - Additional Findings Additional findings: - Constitutional Appears: Non-toxic, No Acute Distress - Head Exam Head Exam: ATRAUMATIC, NORMOCEPHALIC - Eye Exam Eye Exam: EOMI, Scleral icterus - ENT Exam ENT Exam: Mucous Membranes Moist - Respiratory Exam Respiratory Exam: Clear to Auscultation Bilateral, NORMAL BREATHING PATTERN. absent: Accessory Muscle Use, Rales, Rhonchi, Wheezes, Respiratory Distress - Cardiovascular Exam Cardiovascular Exam: Tachycardia, REGULAR RHYTHM, +S1 - GI/Abdominal Exam GI & Abdominal Exam: Normal Bowel Sounds, Soft. absent: Distended, Firm, Guarding, Hernia, Rigid, Tenderness - Extremities Exam Extremities exam: Positive for: joint swelling (left wrist), tenderness (left wrist, pain with flexion and extension.), pedal pulses present. Negative for: calf tenderness, pedal edema - Neurological Exam Neurological exam: Alert, Oriented x3 - Psychiatric Exam Psychiatric exam: Normal Affect, Normal Mood - Skin Skin Exam: Dry, Normal Color, Warm Assessment and Plan - Assessment and Plan (Free Text) Assessment: Alcohol abuse Patient with hx of alcohol use disorder Psychiatry consult, Dr Gold Fall precautions Alcohol, Quantitative 12 Drug screen - negative Meds: Banana bag 1L once Folic acid 1mg PO QD Multivitamin 1 tab PO QD Thiamine 100mg PO QD Librium 50mg dose in ED once (additional 25mg dose given due to patient beginning to have tremors) Librium PO Taper Ativan 1mg PO q6h PRN Elevated LFTs Downtrending Likely secondary to alcohol abuse On admission: AST 341, ALT 152 On admission: platelet count 57 Continue to monitor F/U abdominal ultrasound Paranoia and bipolar Continue home Seroquel 150mg PO HS Continue home Trazodone 100mg PO HS Left wrist fracture Orthopedic consult, Dr Kendall Imaging: Left wrist xray 08/10: The trabecular markings of the distal radius concerning for a nondisplaced trabecular fracture here. Adjacent soft tissue swelling. Indeterminate focal radiolucent lesion distal radial diaphysis without endosteal cortical associated changes -significance -if any is unknown. To assess both possible scenarios, an MRI of the distal left forearm would be preferred. Repeat left wrist xray 09/17: Acute transverse comminuted intra-articular fracture in the distal radius and soft tissue swelling in the wrist joint. Chest pain Reproducible to palpation Initial EKG shows NSR with normal rate and without ST changes Troponin x3 Negative Prophylactic measure DVT anticoagulation contraindicated due to low platelet count Pepcid 20mg PO QD heart healthy diet Case discussed with Dr. Poe <Lauren Poe V - Last Filed: 09/18/17 19:17> Objective - Vital Signs/Intake and Output Vital Signs (last 24 hours): Temp Pulse Resp BP Pulse Ox 97.4 F L 84 20 155/108 H 98 09/18/17 15:41 09/18/17 15:41 09/18/17 15:41 09/18/17 15:41 09/18/17 15:41 Intake and Output: 09/18/17 09/19/17 18:59 06:59 Intake Total 570 Balance 570 - Medications Medications: Current Medications Clonidine HCl (Catapres) 0.1 mg PO Q6H PRN PRN Reason: Symptoms of alcohol withdrawl Famotidine (Pepcid) 20 mg PO DAILY [facility] Last Admin: 09/18/17 10:13 Dose: Not Given Folic Acid (Folic Acid) 1 mg PO DAILY [facility] Last Admin: 09/18/17 10:13 Dose: Not Given Gabapentin (Neurontin) 300 mg PO BID [facility] Last Admin: 09/18/17 18:45 Dose: 300 mg Lorazepam (Ativan) 1 mg IVP Q6H PRN PRN Reason: Seizure activity Last Admin: 09/17/17 22:35 Dose: 1 mg Multivitamins (Hexavitamin) 1 tab PO DAILY [facility] Last Admin: 09/18/17 10:13 Dose: Not Given Quetiapine Fumarate (Seroquel Xr) 150 mg PO HS [facility] Last Admin: 09/17/17 22:34 Dose: 150 mg Thiamine HCl (Vitamin B1 Tab) 100 mg PO DAILY [facility] Last Admin: 09/18/17 10:14 Dose: Not Given - Labs Labs: 09/18/17 08:13 09/18/17 08:13 PT 11.9 SECONDS (9.7-12.2) 09/16/17 13:26 INR 1.1 09/16/17 13:26 APTT 32 SECONDS (21-34) 09/16/17 13:26 Attending/Attestation - Attestation I have personally seen and examined this patient.: Yes I have fully participated in the care of the patient.: Yes I have reviewed all pertinent clinical information, including history, physical exam and plan: Yes Notes (Text): This is a late computer entry for 09/17/2017. Patient seen, examined, and case discussed with daytime resident. Patient seen this afternoon. Patient is awake and alert. Patient has mild swelling over left hand. Will consult orthopedic application development team lead given prior history of wrist fracture. Please note our patient does not have asterixis. Patient does have tremors, which are mild in comparison to when I saw him on admission. We'll continue Librium taper. We'll also consider ordering abdominal ultrasound to appreciate any changes in the liver secondary to suspectrf alcohol abuse and in light of mild elevated bilirubin and in elevated LFTs to rule out stones. Patient does not have pain on exam. Patient's cardiac enzymes are negative. Patient platelets are slowly down trending. Patient does not have any petechiae or skin findings on exam to support low platelets. We'll continue to not start any anticoagulation on patient. We'll continue to observe patient on telemetry given patient is in alcohol withdrawal. Assessment/Plan 1) Alcohol abuse, Alcohol Withdrawal * Patient with hx of alcohol use disorder * Psychiatry consult, Dr Gold on case * Fall precautions * Alcohol, Quantitative 12 * drug screen - negative Meds: Banana bag 1L once * Folic acid 1mg PO QDaily * Multivitamin 1 tab PO QDaily * Thiamine 100mg PO QDaily * Librium 50mg dose in ED once (additional 25mg dose given due to patient beginning to have tremors) * Librium PO Taper (Day 2) * Ativan 1mg PO q6h PRN seizure activity 2) Elevated LFTs Thrombocytopenia * Likely secondary to alcohol abuse * On admission: AST 341, ALT 152 * Improving * On admission: platelet count 57 * Continue to monitor 3) Hx of paranoia and bipolar * Psychiatry consult, Dr Gold on case * Continue home Seroquel 150mg PO HS * Continue home Trazodone 100mg PO HS 4) Hx of left wrist fracture * Left wrist xray 08/10: The trabecular markings of the distal radius concerning for a nondisplaced trabecular fracture here. Adjacent soft tissue swelling. Indeterminate focal radiolucent lesion distal radial diaphysis without endosteal cortical associated changes -significance -if any is unknown. To assess both possible scenarios, an MRI of the distal left forearm would be preferred. * f/u repeat left wrist xray * Orthopedic consult 5) Chest pain-->Resolved * likely secondary to alcohol withdrawal * Reproducible to palpation * Initial EKG shows NSR with normal rate and without ST changes * MAEVE X3: negative * Observe on telemetry 6) Prophylactic measure * DVT anticoagulation contraindicated due to low platelet count * Protonix 40mg QDaily * heart healthy diet
--- NOTE | 2017-09-17 18:34 | CARD ---
APPROVED REPORT EKG Measurement Heart [id number] <Conclusion> Normal sinus rhythm T wave abnormality, consider anterolateral ischemia Abnormal ECG
--- NOTE | 2017-09-17 20:09 | US ---
EXAM: US Abdomen Complete EXAM DATE/TIME: Exam ordered 09/17/2017 3:26 PM CLINICAL HISTORY: 52 years old, male; Signs and symptoms; Other: Elevated transaminitis TECHNIQUE: Real-time ultrasound of the abdomen (complete) with image documentation. COMPARISON: No relevant prior studies available. FINDINGS: Liver: Liver appears generally increased in echotexture measuring 16 cm in craniocaudal span approximately. The liver echotexture is slightly coarsened and heterogeneous. Normal blood flow direction is seen in the main portal vein. Normal phasic flow is noted within the middle hepatic vein. Gallbladder: Gallbladder appears contracted and fluid-filled. No gallstones. Common bile duct: Common bile duct measures approximately 2 mm. No stones. No dilation. Pancreas: The pancreatic neck and body appear normal. The head and tail are not well seen due to bowel gas. Kidneys: The right kidney measures 10 x 4.8 x 4.8 cm. A 6 mm simple cyst is seen in the lower pole of the right kidney. The left kidney measures 9.8 x 4.9 x 4.6 cm. No stones. No hydronephrosis. Spleen: The spleen measures 9.6 cm in craniocaudal span. Aorta: Unremarkable. No aneurysm. Inferior vena cava: Unremarkable. IMPRESSION: 1. Heterogeneous echotexture of the liver. Appearance may be related to partial fatty infiltration 2. Tiny right renal cyst.
[2017-09-17] MEDS: QUEtiapine 150 mg XR Tab PO SCH (22:34)
--- NOTE | 2017-09-18 02:19 | CP.PCM.PN ---
Subjective - Date & Time of Evaluation Date of Evaluation: 09/18/17 Time of Evaluation: 02:10 - Subjective Subjective: Night resident note: I was called because the patient was agitated and destructive. Patient was chewing on telemetry leads and trying to break whatever he could get his hands on. I went to evaluate the patient but he did not respond to my questioning and was restless. Patient had already received Ativan 1 mg IV earlier this evening. In order to prevent him from harming himself, low dose Haldol 0.5 mg IM was ordered. Objective - Vital Signs/Intake and Output Vital Signs (last 24 hours): Temp Pulse Resp BP Pulse Ox 98.0 F 106 H 20 134/98 H 99 09/17/17 15:16 09/17/17 16:00 09/17/17 15:16 09/17/17 15:16 09/17/17 15:16 Intake and Output: 09/17/17 09/18/17 18:59 06:59 Intake Total 600 480 Balance 600 480 - Medications Medications: Current Medications Chlordiazepoxide (Librium) 25 mg PO TID [facility] PRN Reason: Taper Stop: 09/20/17 22:29 Last Admin: 09/17/17 17:35 Dose: 25 mg Famotidine (Pepcid) 20 mg PO DAILY [facility] Last Admin: 09/17/17 09:38 Dose: 20 mg Folic Acid (Folic Acid) 1 mg PO DAILY [facility] Last Admin: 09/17/17 09:38 Dose: 1 mg Gabapentin (Neurontin) 300 mg PO BID [facility] Last Admin: 09/17/17 17:35 Dose: 300 mg Lorazepam (Ativan) 1 mg IVP Q6H PRN PRN Reason: Seizure activity Last Admin: 09/17/17 22:35 Dose: 1 mg Multivitamins (Hexavitamin) 1 tab PO DAILY [facility] Last Admin: 09/17/17 09:38 Dose: 1 tab Quetiapine Fumarate (Seroquel Xr) 150 mg PO HS [facility] Last Admin: 09/17/17 22:34 Dose: 150 mg Thiamine HCl (Vitamin B1 Tab) 100 mg PO DAILY [facility] Last Admin: 09/17/17 09:38 Dose: 100 mg Trazodone HCl (Desyrel) 100 mg PO HS [facility] Last Admin: 09/17/17 22:34 Dose: 100 mg - Labs Labs: 12/22/17 07:09 09/17/17 07:09 PT 11.9 SECONDS (9.7-12.2) 09/16/17 13:26 INR 1.1 09/16/17 13:26 APTT 32 SECONDS (21-34) 09/16/17 13:26
[2017-09-18 08:26] LABS: BASO % 1.2 % (0.0-2.0); EOS # 0.1 K/uL (0.0-0.7); EOS % 2.3 % (0.0-4.0); LYMPH # 1.8 K/uL (1.0-4.3); LYMPH % 47.1 % (20.0-40.0); MEAN CELL VOLUME 91.2 fL (80.0-94.0); MEAN CORPUSCULAR HEMOGLOBIN 31.5 pg (27.0-31.0); MEAN CORPUSCULAR HGB CONC 34.6 g/dL (33.0-37.0); MEAN PLATELET VOLUME 8.4 fL (7.2-11.7); MONO # 0.2 K/uL (0.0-0.8); MONO % 5.3 % (0.0-10.0); NRBC % 0.2 % (0.0-2.0); RED CELL DISTRIBUTION WIDTH 15.4 % (11.5-14.5); WHITE BLOOD COUNT 3.8 K/uL (4.8-10.8)
[2017-09-18 09:32] LABS: TOTAL PROTEIN 8.4 g/dL (6.3-8.3)
[2017-09-18 09:49] LABS: ALKALINE PHOSPHATASE 95 U/L (38-126); ALT/SGPT 88 U/L (21-72); AST/SGOT 119 U/L (17-59); BLOOD UREA NITROGEN 12 mg/dL (9-20); CALCIUM 9.3 mg/dl (8.6-10.4); CARBON DIOXIDE 26 mmol/L (22-30); CHLORIDE 99 mmol/L (98-107); GFR AFRICAN-AMERICAN > 60; GLUCOSE,RANDOM 120 mg/dL (75-110); POTASSIUM 3.3 mmol/L (3.6-5.2); SODIUM 137 mmol/L (132-148)
[2017-09-18] MEDS ORDERED: Influenza Vaccine 60 mcg/0.5 mL SYR (4YR UP) IM ONE (10:00)
[2017-09-18] MEDS: Multiple Vitamins Tab PO SCH (10:13)
[2017-09-18 12:01] LABS: MAGNESIUM 1.9 mg/dL (1.6-2.3)
--- NOTE | 2017-09-18 17:31 | CP.PCM.PN ---
<Sadie Negro - Last Filed: 09/18/17 17:46> Subjective - Date & Time of Evaluation Date of Evaluation: 09/18/17 Time of Evaluation: 09:00 - Subjective Subjective: Medicine Progress Note: Hospitalist Service Patient seen and examined at bedside. Per nursing, patient was agitated last night and was biting the telemetry leads. Was given 1mg of ativan and 0.5mg of Haldol by the night team. Currently patient lethargic but arousable. Not able to answer questions due to somnolence. ROS not obtained. Objective - Vital Signs/Intake and Output Vital Signs (last 24 hours): Temp Pulse Resp BP Pulse Ox 97.7 F 82 20 141/88 97 09/18/17 09:47 09/18/17 09:47 09/18/17 09:47 09/18/17 09:47 09/18/17 09:47 Intake and Output: 09/18/17 09/18/17 06:59 18:59 Intake Total 480 570 Balance 480 570 - Medications Medications: Current Medications Famotidine (Pepcid) 20 mg PO DAILY [facility] Last Admin: 09/18/17 10:13 Dose: Not Given Folic Acid (Folic Acid) 1 mg PO DAILY [facility] Last Admin: 09/18/17 10:13 Dose: Not Given Gabapentin (Neurontin) 300 mg PO BID [facility] Last Admin: 09/18/17 10:13 Dose: Not Given Lorazepam (Ativan) 1 mg IVP Q6H PRN PRN Reason: Seizure activity Last Admin: 09/17/17 22:35 Dose: 1 mg Multivitamins (Hexavitamin) 1 tab PO DAILY [facility] Last Admin: 09/18/17 10:13 Dose: Not Given Quetiapine Fumarate (Seroquel Xr) 150 mg PO HS [facility] Last Admin: 09/17/17 22:34 Dose: 150 mg Thiamine HCl (Vitamin B1 Tab) 100 mg PO DAILY [facility] Last Admin: 09/18/17 10:14 Dose: Not Given - Labs Labs: 09/18/17 08:13 09/18/17 08:13 PT 11.9 SECONDS (9.7-12.2) 09/16/17 13:26 INR 1.1 09/16/17 13:26 APTT 32 SECONDS (21-34) 12/21/17 13:26 - Constitutional Appears: Non-toxic, No Acute Distress - Head Exam Head Exam: ATRAUMATIC, NORMAL INSPECTION - Eye Exam Eye Exam: EOMI, Normal appearance - ENT Exam ENT Exam: Mucous Membranes Moist - Neck Exam Neck Exam: Full ROM - Respiratory Exam Respiratory Exam: Clear to Ausculation Bilateral, NORMAL BREATHING PATTERN. absent: Rales, Rhonchi, Wheezes - Cardiovascular Exam Cardiovascular Exam: REGULAR RHYTHM, +S1, +S2 - GI/Abdominal Exam GI & Abdominal Exam: Soft, Normal Bowel Sounds. absent: Firm, Guarding, Rigid, Tenderness - Extremities Exam Extremities Exam: Normal Inspection - Skin Skin Exam: Dry, Normal Color, Warm Assessment and Plan - Assessment and Plan (Free Text) Assessment: Alcohol abuse * Patient with hx of alcohol use disorder * Psychiatry consult, Dr Gold, help appreciated * Fall precautions * Alcohol, Quantitative 12 * Drug screen - negative * Patient on Librium Taper, will hold at this time due to somnolence * Ativan 1mg Q6H prn seizure activity * Continue Gabapentin 300mg BID * Continue multivitamins 1 tab daily * Continue Thiamine 100mg PO daily * Continue Folic acid 1 tab po daily * Continue 1:1 observation Elevated LFTs * Downtrending * Likely secondary to alcohol abuse * On admission: AST 341, ALT 152 * Abdominal US: Heterogenous echotexture of the liver, appearance may be related to partial fatty infiltration; Tiny R renal cyst * Continue to monitor Thrombocytopenia 2/2 alcohol induced bone marrow suppression * Platelets on admission 57, currently downtrending * No signs of bleeding * Fall precautions * Will continue to monitor Hypokalemia * Potassium 3.3 today * K riders 20 meq x 2 doses ordered * Will monitor Paranoia and bipolar * Continue home Seroquel 150mg PO HS * Will hold trazadone at this time due to somnolence Left wrist fracture * Orthopedic consult, Dr Kendall * Imaging: * Left wrist xray 08/10: The trabecular markings of the distal radius concerning for a nondisplaced trabecular fracture here. Adjacent soft tissue swelling. Indeterminate focal radiolucent lesion distal radial diaphysis without endosteal cortical associated changes -significance -if any is unknown. To assess both possible scenarios, an MRI of the distal left forearm would be preferred. * Repeat left wrist xray 09/17: Acute transverse comminuted intra-articular fracture in the distal radius and soft tissue swelling in the wrist joint. Chest pain (resolved) * Reproducible to palpation * Initial EKG shows NSR with normal rate and without ST changes * Troponin x3 Negative Prophylactic measure * DVT anticoagulation contraindicated due to low platelet count * Pepcid 20mg PO QD * heart healthy diet <Lauren Poe V - Last Filed: 09/18/17 19:32> Objective - Vital Signs/Intake and Output Vital Signs (last 24 hours): Temp Pulse Resp BP Pulse Ox 97.4 F L 84 20 155/108 H 98 09/18/17 15:41 09/18/17 15:41 09/18/17 15:41 09/18/17 15:41 09/18/17 15:41 Intake and Output: 09/18/17 09/19/17 18:59 06:59 Intake Total 570 Balance 570 - Medications Medications: Current Medications Clonidine HCl (Catapres) 0.1 mg PO Q6H PRN PRN Reason: Symptoms of alcohol withdrawl Famotidine (Pepcid) 20 mg PO DAILY [facility] Last Admin: 09/18/17 10:13 Dose: Not Given Folic Acid (Folic Acid) 1 mg PO DAILY [facility] Last Admin: 09/18/17 10:13 Dose: Not Given Gabapentin (Neurontin) 300 mg PO BID [facility] Last Admin: 09/18/17 18:45 Dose: 300 mg Lorazepam (Ativan) 1 mg IVP Q6H PRN PRN Reason: Seizure activity Last Admin: 09/17/17 22:35 Dose: 1 mg Multivitamins (Hexavitamin) 1 tab PO DAILY [facility] Last Admin: 09/18/17 10:13 Dose: Not Given Quetiapine Fumarate (Seroquel Xr) 150 mg PO HS [facility] Last Admin: 09/17/17 22:34 Dose: 150 mg Thiamine HCl (Vitamin B1 Tab) 100 mg PO DAILY [facility] Last Admin: 09/18/17 10:14 Dose: Not Given - Labs Labs: 09/18/17 08:13 09/18/17 08:13 PT 11.9 SECONDS (9.7-12.2) 09/16/17 13:26 INR 1.1 09/16/17 13:26 APTT 32 SECONDS (21-34) 09/16/17 13:26 Attending/Attestation - Attestation I have personally seen and examined this patient.: Yes I have fully participated in the care of the patient.: Yes I have reviewed all pertinent clinical information, including history, physical exam and plan: Yes Notes (Text): Patient seen, examined, case discussed with daytime resident. Patient was aggressive with nighttime staff requiring both dose of Haldol 0.5 mg IM and Ativan 1 mg IV. Have discussed with daytime nursing Peculiar patient is quite lethargic on exam and given circumstances it is appropriate. Patient was re-evaluated shortly after lunch. Patient is awake alert speaking in clear sentences. Advised to hold Librium taper. Ativan PRN order clarified for seizure PRN only. There is no bruising no ecchymoses noted on exam. Patient has complete abdominal ultrasound shows liver changes consistent disorder who is abusing alcohol. Patient strongly advised to stop alcohol use. Pending evaluation by orthopedic given prior history of left wrist fracture where inpatient is still not using his splint as directed from prior visit. Patient's electrolytes were repleted today. Consideration for possible discharge tomorrow. Assessment/Plan 1) Alcohol abuse, Alcohol Withdrawal * Patient with hx of alcohol use disorder * Psychiatry consult, Dr Gold on case * Fall precautions * Alcohol, Quantitative 12 * drug screen - negative Meds: Banana bag 1L once * Folic acid 1mg PO QDaily * Multivitamin 1 tab PO QDaily * Thiamine 100mg PO QDaily * Librium 50mg dose in ED once (additional 25mg dose given due to patient beginning to have tremors) * d/c Librium PO Taper * Ativan 1mg IV q6h PRN seizure activity only 2) Elevated LFTs Thrombocytopenia * Likely secondary to alcohol abuse * Improving LFTs * On admission: platelet count 33 * Continue to monitor * Abdominal US (09/17): heterogenous echotexture of the liver. Appearance may be related to partial fatty infiltration. Tiny right renal cyst 3) Hx of paranoia and bipolar * Psychiatry consult, Dr Gold on case * Continue home Seroquel 150mg PO HS * Continue home Trazodone 100mg PO HS 4) Hx of left wrist fracture * Left wrist xray 08/10: The trabecular markings of the distal radius concerning for a nondisplaced trabecular fracture here. Adjacent soft tissue swelling. Indeterminate focal radiolucent lesion distal radial diaphysis without endosteal cortical associated changes -significance -if any is unknown. To assess both possible scenarios, an MRI of the distal left forearm would be preferred. * Left Wrist Xray (09/17/17): acute transverse comminuted intra-articular fracture in the distal radius and soft tissue swelling in the wrist joint. * Orthopedic consult pending 5) Chest pain-->Resolved * likely secondary to alcohol withdrawal * Reproducible to palpation * Initial EKG shows NSR with normal rate and without ST changes * MAEVE X3: negative * Observe on telemetry 6) Prophylactic measure * DVT anticoagulation contraindicated due to low platelet count * Protonix 40mg QDaily * heart healthy diet
[2017-09-18] MEDS: QUEtiapine 150 mg XR Tab PO SCH (22:32)
[2017-09-19 08:46] LABS: EOS # 0.1 K/uL (0.0-0.7); EOS % 2.6 % (0.0-4.0); HEMATOCRIT 38.4 % (35.0-51.0); LYMPH % 43.8 % (20.0-40.0); MEAN CELL VOLUME 91.1 fL (80.0-94.0); MEAN CORPUSCULAR HEMOGLOBIN 31.5 pg (27.0-31.0); MEAN CORPUSCULAR HGB CONC 34.6 g/dL (33.0-37.0); MEAN PLATELET VOLUME 9.4 fL (7.2-11.7); MONO # 0.2 K/uL (0.0-0.8); MONO % 4.7 % (0.0-10.0); NRBC % 0.1 % (0.0-2.0); RED CELL DISTRIBUTION WIDTH 15.2 % (11.5-14.5); WHITE BLOOD COUNT 4.5 K/uL (4.8-10.8)
[2017-09-19 09:14] LABS: ALB/GLOB RATIO 1.2 (1.0-2.1); ALKALINE PHOSPHATASE 74 U/L (38-126); ALT/SGPT 132 U/L (21-72); AST/SGOT 177 U/L (17-59); BILIRUBIN,TOTAL 1.7 mg/dL (0.2-1.3); BLOOD UREA NITROGEN 15 mg/dL (9-20); CARBON DIOXIDE 23 mmol/L (22-30); CHLORIDE 99 mmol/L (98-107); GFR AFRICAN-AMERICAN > 60; GLUCOSE,RANDOM 99 mg/dL (75-110); MAGNESIUM 1.5 mg/dL (1.6-2.3); PHOSPHOROUS 3.7 mg/dL (2.5-4.5); POTASSIUM 3.5 mmol/L (3.6-5.2); SODIUM 134 mmol/L (132-148); TOTAL PROTEIN 7.9 g/dL (6.3-8.3)
[2017-09-19] MEDS: Multiple Vitamins Tab PO SCH (09:47)
[2017-09-19] MEDS ORDERED: Potassium Chloride 20 mEq ER Tab PO ONE (09:53)
[2017-09-19] MEDS: Magnesium Sulfate 1 gm in D5W 1 GM/100 ML BAG IVPB SCH (10:55)
--- NOTE | 2017-09-19 11:54 | PCM.PYCHPN ---
Psychiatric Progress Note - Psychiatric Progress Note Patient seen today, length of contact: 15 min Patient Chief Complaint: "I want to leave soon" Problems Identified/Issues Discussed: He is seen, chart reviewed and case discussed He is ding better No new sxs After care discussed [place] used, support given Medication Change: No Medical Record Reviewed: Yes Mental Status Examination - Cognitive Function Orientation: Person, Place, Situation, Time Memory: Intact Attention: WNL Concentration: Poor Association: WNL Fund of Knowledge: WNL - Mood Mood: Depressed, Anxious - Affect Affect: Constricted - Speech Speech: Appropriate - Formal Thought Process Formal Thought Process: No Impairment - Suicidal Ideation Suicidal Ideation: No - Homicidal Ideation Homicidal Ideation: No Goal/Treatment Plan - Goal/Treatment Plan Need for Continued Stay: Other (medical) Progress Toward Problem(s) and Goals/Treatment Plan: Continue meds Refer to IOP Cleared for d/c by psych
--- NOTE | 2017-09-19 17:22 | CP.PCM.PN ---
<Sadie Negro - Last Filed: 09/19/17 18:55> Subjective - Date & Time of Evaluation Date of Evaluation: 09/19/17 Time of Evaluation: 17:19 - Subjective Subjective: Medicine Progress Note: Hospitalist Service Patient seen and examined at bedside. Per nursing no acute events overnight. Patient is doing well, more awake today. States that he was feeling chest pressure for the past two days and is requesting medications for shakes. EKG showed no changes and MAEVE was negative. Denies headaches, dizziness, palpitations, sob, abdominal pain, urinary symptoms. Objective - Vital Signs/Intake and Output Vital Signs (last 24 hours): Temp Pulse Resp BP Pulse Ox 97.2 F L 91 H 20 127/95 H 94 L 09/19/17 15:00 09/19/17 15:00 09/19/17 15:00 09/19/17 15:00 09/19/17 15:00 Intake and Output: 09/19/17 09/19/17 06:59 18:59 Intake Total 390 900 Balance 390 900 - Medications Medications: Current Medications Clonidine HCl (Catapres) 0.1 mg PO Q6H PRN PRN Reason: Symptoms of alcohol withdrawl Famotidine (Pepcid) 20 mg PO DAILY [facility] Last Admin: 09/19/17 09:47 Dose: 20 mg Folic Acid (Folic Acid) 1 mg PO DAILY [facility] Last Admin: 09/19/17 09:47 Dose: 1 mg Gabapentin (Neurontin) 300 mg PO BID [facility] Last Admin: 09/19/17 09:47 Dose: 300 mg Lorazepam (Ativan) 1 mg IVP Q6H PRN PRN Reason: Seizure activity Last Admin: 09/17/17 22:35 Dose: 1 mg Multivitamins (Hexavitamin) 1 tab PO DAILY [facility] Last Admin: 09/19/17 09:47 Dose: 1 tab Quetiapine Fumarate (Seroquel Xr) 150 mg PO HS [facility] Last Admin: 09/18/17 22:32 Dose: 150 mg Thiamine HCl (Vitamin B1 Tab) 100 mg PO DAILY [facility] Last Admin: 09/19/17 09:47 Dose: 100 mg - Labs Labs: 09/19/17 08:24 09/19/17 08:24 PT 11.9 SECONDS (9.7-12.2) 09/16/17 13:26 INR 1.1 09/16/17 13:26 APTT 32 SECONDS (21-34) 09/16/17 13:26 Assessment and Plan - Assessment and Plan (Free Text) Assessment: Alcohol abuse * Patient with hx of alcohol use disorder * Psychiatry consult, Dr Gold, help appreciated * Fall precautions * Alcohol, Quantitative 12 * Drug screen - negative * Ativan 1mg Q6H prn seizure activity * Continue Gabapentin 300mg BID * Continue multivitamins 1 tab daily * Continue Thiamine 100mg PO daily * Continue Folic acid 1 tab PO daily * Continue 1:1 observation * Librium taper was discontinued Elevated LFTs * Likely secondary to alcohol abuse * On admission: AST 341, ALT 152 * Elevation of LFTs today likely secondary to haldol that was given yesterday * Abdominal US: Heterogenous echotexture of the liver, appearance may be related to partial fatty infiltration; Tiny R renal cyst * Continue to monitor Thrombocytopenia 2/2 alcohol induced bone marrow suppression * Platelets on admission 57, today 35 * No signs of bleeding * Fall precautions * Will continue to monitor Hypokalemia * Potassium 4.1 today * Will monitor Paranoia and bipolar * Continue home Seroquel 150mg PO HS * Can restart Trazadone Left wrist fracture * Pending evaluation by orthopedic given prior history of left wrist fracture where patient is still not using his splint as directed from prior visit. * Possible D/C home tomorrow * Orthopedic consult, Dr Kendall * Imaging: * Left wrist xray 08/10: The trabecular markings of the distal radius concerning for a nondisplaced trabecular fracture here. Adjacent soft tissue swelling. Indeterminate focal radiolucent lesion distal radial diaphysis without endosteal cortical associated changes -significance -if any is unknown. To assess both possible scenarios, an MRI of the distal left forearm would be preferred. * Repeat left wrist xray 09/17: Acute transverse comminuted intra-articular fracture in the distal radius and soft tissue swelling in the wrist joint. Chest pain (resolved) * complained of chest pressure this morning * EKG and MAEVE negative * Will continue tor monitor Prophylactic measure * DVT anticoagulation contraindicated due to low platelet count * Pepcid 20mg PO QD * Heart healthy diet <Lauren Poe V - Last Filed: 09/19/17 19:50> Objective - Vital Signs/Intake and Output Vital Signs (last 24 hours): Temp Pulse Resp BP Pulse Ox 97.2 F L 106 H 20 127/95 H 94 L 09/19/17 15:00 09/19/17 16:00 09/19/17 15:00 09/19/17 15:00 09/19/17 15:00 Intake and Output: 09/19/17 09/20/17 18:59 06:59 Intake Total 900 Balance 900 - Medications Medications: Current Medications Clonidine HCl (Catapres) 0.1 mg PO Q6H PRN PRN Reason: Symptoms of alcohol withdrawl Famotidine (Pepcid) 20 mg PO DAILY [facility] Last Admin: 09/19/17 09:47 Dose: 20 mg Folic Acid (Folic Acid) 1 mg PO DAILY [facility] Last Admin: 09/19/17 09:47 Dose: 1 mg Gabapentin (Neurontin) 300 mg PO BID [facility] Last Admin: 09/19/17 18:09 Dose: 300 mg Lorazepam (Ativan) 1 mg IVP Q6H PRN PRN Reason: Seizure activity Last Admin: 09/17/17 22:35 Dose: 1 mg Multivitamins (Hexavitamin) 1 tab PO DAILY [facility] Last Admin: 09/19/17 09:47 Dose: 1 tab Quetiapine Fumarate (Seroquel Xr) 150 mg PO HS [facility] Last Admin: 09/18/17 22:32 Dose: 150 mg Thiamine HCl (Vitamin B1 Tab) 100 mg PO DAILY [facility] Last Admin: 09/19/17 09:47 Dose: 100 mg - Labs Labs: 09/19/17 08:24 09/19/17 08:24 PT 11.9 SECONDS (9.7-12.2) 09/16/17 13:26 INR 1.1 09/16/17 13:26 APTT 32 SECONDS (21-34) 09/16/17 13:26 Attending/Attestation - Attestation I have personally seen and examined this patient.: Yes I have fully participated in the care of the patient.: Yes I have reviewed all pertinent clinical information, including history, physical exam and plan: Yes Notes (Text): Patient seen, examined, case discussed date resident. Patient is more awake and alert at bedside compared to yesterday. Patient has no apparent bruising or ecchymoses platelets are mildly improving. Patient is on on Ativan when necessary for withdrawal. Patient's liver function numbers have increased likely secondary to the necessary Haldol for agitation and the night before. Electrolytes were repleted today. We will need to follow-up with orthopedic in regards to left wrist fracture which first occurrence was then July and does not appear the patient was complaining a left wrist splint. Per psych eval patient is psychiatrically clear from her standpoint. Planning for discharge for tomorrow. Assessment/Plan 1) Alcohol abuse, Alcohol Withdrawal * Patient with hx of alcohol use disorder * Psychiatry consult, Dr Gold on case * Fall precautions * Alcohol, Quantitative 12 * drug screen - negative Meds: Banana bag 1L once * Folic acid 1mg PO QDaily * Multivitamin 1 tab PO QDaily * Thiamine 100mg PO QDaily * Librium 50mg dose in ED once (additional 25mg dose given due to patient beginning to have tremors) * d/c Librium PO Taper * Ativan 1mg IV q6h PRN seizure activity only 2) Elevated LFTs Thrombocytopenia * Likely secondary to alcohol abuse * Uptrending LFTs * On admission: platelet count 35 * Continue to monitor * Abdominal US (09/17): heterogenous echotexture of the liver. Appearance may be related to partial fatty infiltration. Tiny right renal cyst 3) Hx of paranoia and bipolar * Psychiatry consult, Dr Gold on case * Continue home Seroquel 150mg PO HS * Continue home Trazodone 100mg PO HS * Per psych, clear from their standpoint for discharge. 4) Hx of left wrist fracture * Left wrist xray 08/10: The trabecular markings of the distal radius concerning for a nondisplaced trabecular fracture here. Adjacent soft tissue swelling. Indeterminate focal radiolucent lesion distal radial diaphysis without endosteal cortical associated changes -significance -if any is unknown. To assess both possible scenarios, an MRI of the distal left forearm would be preferred. * Left Wrist Xray (09/17/17): acute transverse comminuted intra-articular fracture in the distal radius and soft tissue swelling in the wrist joint. * Orthopedic consult pending 5) Chest pain-->Resolved * likely secondary to alcohol withdrawal * Reproducible to palpation * Initial EKG shows NSR with normal rate and without ST changes * MAEVE X3: negative * Observe on telemetry 6) Prophylactic measure * DVT anticoagulation contraindicated due to low platelet count * Protonix 40mg QDaily * heart healthy diet
[2017-09-19] MEDS: QUEtiapine 150 mg XR Tab PO SCH (21:16)
[2017-09-20 07:32] LABS: BASO # 0.1 K/uL (0.0-0.2); BASO % 1.2 % (0.0-2.0); EOS # 0.1 K/uL (0.0-0.7); EOS % 1.5 % (0.0-4.0); HEMATOCRIT 41.9 % (35.0-51.0); LYMPH # 2.2 K/uL (1.0-4.3); LYMPH % 46.2 % (20.0-40.0); MEAN CORPUSCULAR HGB CONC 33.7 g/dL (33.0-37.0); MEAN PLATELET VOLUME 9.1 fL (7.2-11.7); MONO # 0.3 K/uL (0.0-0.8); MONO % 6.2 % (0.0-10.0); NRBC % 0.1 % (0.0-2.0); RED CELL DISTRIBUTION WIDTH 15.6 % (11.5-14.5); WHITE BLOOD COUNT 4.7 K/uL (4.8-10.8)
[2017-09-20 08:07] VITALS: BP 139/96; PULSE 80; TEMP 97.4; O2SAT 100
[2017-09-20 08:32] LABS: ALKALINE PHOSPHATASE 115 U/L (38-126); ALT/SGPT 199 U/L (21-72); AST/SGOT 225 U/L (17-59); BILIRUBIN,TOTAL 0.6 mg/dL (0.2-1.3); BLOOD UREA NITROGEN 20 mg/dL (9-20); CALCIUM 8.5 mg/dl (8.6-10.4); CARBON DIOXIDE 23 mmol/L (22-30); CHLORIDE 98 mmol/L (98-107); GFR AFRICAN-AMERICAN > 60; GLUCOSE,RANDOM 109 mg/dL (75-110); PHOSPHOROUS 3.7 mg/dL (2.5-4.5); POTASSIUM 4.1 mmol/L (3.6-5.2); SODIUM 133 mmol/L (132-148); TOTAL PROTEIN 9.2 g/dL (6.3-8.3)
[2017-09-20] MEDS: Multiple Vitamins Tab PO SCH (09:55)
--- NOTE | 2017-09-20 11:03 | CP.PCM.DIS ---
<Alejandro Casas - Last Filed: 09/20/17 16:39> Provider - Provider Date of Admission: 09/16/17 14:40 Attending physician: Lauren Poe DO Consults: Psychiatry-Dr. Gold Orthopedics-Dr. Sales Time Spent in preparation of Discharge (in minutes): 40 Diagnosis - Discharge Diagnosis (1) Alcohol withdrawal Status: Acute (2) Paranoia Status: Chronic (3) Bipolar disorder Status: Chronic (4) Alcohol abuse Status: Chronic (5) Chest pain Status: Resolved (6) Elevated LFTs Status: Chronic (7) Left wrist fracture Status: Acute (8) Prophylactic measure Status: Acute Priority: Low (9) Thrombocytopenia Status: Acute Hospital Course - Lab Results Lab Results: Most Recent Lab Values WBC 4.7 K/uL (4.8-10.8) L 09/20/17 07:07 RBC 4.56 Mil/uL (4.40-5.90) 09/20/17 07:07 Hgb 14.1 g/dL (12.0-18.0) 09/20/17 07:07 Hct 41.9 % (35.0-51.0) 09/20/17 07:07 MCV 92.0 fL (80.0-94.0) 09/20/17 07:07 MCH 31.0 pg (27.0-31.0) 09/20/17 07:07 MCHC 33.7 g/dL (33.0-37.0) 09/20/17 07:07 RDW 15.6 % (11.5-14.5) H 09/20/17 07:07 Plt Count 47 K/uL (130-400) L 09/20/17 07:07 MPV 9.1 fL (7.2-11.7) 09/20/17 07:07 Neut % (Auto) 44.9 % (50.0-75.0) L 09/20/17 07:07 Lymph % (Auto) 46.2 % (20.0-40.0) H 09/20/17 07:07 [place] % (Auto) 6.2 % (0.0-10.0) 09/20/17 07:07 Eos % (Auto) 1.5 % (0.0-4.0) 09/20/17 07:07 Baso % (Auto) 1.2 % (0.0-2.0) 09/20/17 07:07 Neut # 2.1 K/uL (1.8-7.0) 09/20/17 07:07 Lymph # 2.2 K/uL (1.0-4.3) 09/20/17 07:07 [place] # 0.3 K/uL (0.0-0.8) 09/20/17 07:07 Eos # 0.1 K/uL (0.0-0.7) 09/20/17 07:07 Baso # 0.1 K/uL (0.0-0.2) 09/20/17 07:07 Differential Comment 09/16/17 13:26 PT 11.9 SECONDS (9.7-12.2) 09/16/17 13:26 INR 1.1 09/16/17 13:26 APTT 32 SECONDS (21-34) 09/16/17 13:26 Sodium 133 mmol/L (132-148) 09/20/17 07:07 Potassium 4.1 mmol/L (3.6-5.2) 09/20/17 07:07 Chloride 98 mmol/L (98-107) 09/20/17 07:07 Carbon Dioxide 23 mmol/L (22-30) 09/20/17 07:07 Anion Gap 16 (10-20) 09/20/17 07:07 BUN 20 mg/dL (9-20) 09/20/17 07:07 Creatinine 0.8 mg/dL (0.8-1.5) 09/20/17 07:07 Est GFR ( Amer) > 60 09/20/17 07:07 Est GFR (Non-Af Amer) > 60 09/20/17 07:07 POC Glucose (mg/dL) 248 mg/dL (65-110) H 09/17/17 21:19 Random Glucose 109 mg/dL (75-110) 09/20/17 07:07 Hemoglobin A1c 4.4 % (4.2-6.5) 09/17/17 07:09 Calcium 8.5 mg/dl (8.6-10.4) L 09/20/17 07:07 Phosphorus 3.7 mg/dL (2.5-4.5) 09/20/17 07:07 Magnesium 1.5 mg/dL (1.6-2.3) L 09/19/17 08:24 Total Bilirubin 0.6 mg/dL (0.2-1.3) 09/20/17 07:07 AST 225 U/L (17-59) H D 09/20/17 07:07 ALT 199 U/L (21-72) H D 09/20/17 07:07 Alkaline Phosphatase 115 U/L (38-126) 09/20/17 07:07 Total Creatine Kinase 193 U/L (55-170) H 09/19/17 08:24 CK-MB (Mass) 0.61 ng/mL (0.0-3.38) 09/19/17 08:24 Troponin I < 0.0120 ng/mL (0.00-0.120) 09/19/17 08:24 Total Protein 9.2 g/dL (6.3-8.3) H 09/20/17 07:07 Albumin 4.6 g/dL (3.5-5.0) 09/20/17 07:07 Globulin 4.6 gm/dL (2.2-3.9) H 09/20/17 07:07 Albumin/Globulin Ratio 1.0 (1.0-2.1) 09/20/17 07:07 Triglycerides 100 mg/dL (0-149) 09/17/17 07:09 Cholesterol 199 mg/dL (0-199) 09/17/17 07:09 LDL Cholesterol Direct 91 mg/dL (0-129) 09/17/17 07:09 HDL Cholesterol 79 mg/dL (30-70) H 09/17/17 07:09 TSH 3rd Generation 2.33 mIU/L (0.46-4.68) 09/17/17 07:09 Urine Color Syeda (YELLOW) 09/16/17 13:43 Urine Clarity Clear (Clear) 09/16/17 13:43 Urine pH 6.0 (5.0-8.0) 09/16/17 13:43 Ur Specific [place] 1.027 (1.003-1.030) 09/16/17 13:43 Urine Protein 2+ mg/dL (NEGATIVE) H 09/16/17 13:43 Urine Glucose (UA) Normal mg/dL (Normal) 09/16/17 13:43 Urine Ketones 2+ mg/dL (NEGATIVE) H 09/16/17 13:43 Urine Blood Negative (NEGATIVE) 09/16/17 13:43 Urine Nitrate Negative (NEGATIVE) 09/16/17 13:43 Urine Bilirubin Negative (NEGATIVE) 09/16/17 13:43 Urine Urobilinogen 2.0 mg/dL (0.2-1.0) 09/16/17 13:43 Ur Leukocyte Esterase Neg Jean Paul/uL (Negative) 09/16/17 13:43 Urine WBC (Auto) 1 /hpf (0-5) 09/16/17 13:43 Urine RBC (Auto) 2 /hpf (0-3) 09/16/17 13:43 Ur Squamous Epith Cells < 1 /hpf (0-5) 09/16/17 13:43 Hyaline Casts 3-5 /lpf (0-2) H 09/16/17 13:43 Urine Opiates Screen Negative (NEGATIVE) 09/16/17 13:43 Urine Methadone Screen Negative (NEGATIVE) 09/16/17 13:43 Ur Barbiturates Screen Negative (NEGATIVE) 09/16/17 13:43 Ur Phencyclidine Scrn Negative (NEGATIVE) 09/16/17 13:43 Ur Amphetamines Screen Negative (NEGATIVE) 09/16/17 13:43 U Benzodiazepines Scrn Negative (NEGATIVE) 09/16/17 13:43 U Oth Cocaine Metabols Negative (NEGATIVE) 09/16/17 13:43 U Cannabinoids Screen Negative (NEGATIVE) 09/16/17 13:43 Alcohol, Quantitative 12 mg/dl (0-10) H 09/16/17 13:26 - Hospital Course Hospital Course: Initial note: "Patient is a 52 year old male with a past medical history of Paranoia and Bipolar Disorder presents to the ER with chest pain. He describes the chest pain as pressure located mid-sternally, rated 7/10. The pain does not radiate. He did not take anything. Nothing makes the pain better. The pain is worse when he presses on his chest. The pain is reproducible. He is a heavy drinker and drinks 1/2 to 1 pint of vodka a day with his last drink was 2 days ago. The patient had similar symptoms multiple times before including one month prior when he was admitted to [facility]. Patient also complains of left wrist pain. He fractured left wrist prior to his last visit a month ago but never followed up. He denies any fevers, chills, nausea, vomiting, diarrhea, constipation, lightheadedness, dizziness, hallucinations or suicidal ideation. " Hospital Course: Patient admitted for chest pain and alcohol withdrawal and was very tremulous on admission. Chest pain resolved and three sets of cardiac enzymes were negative. Psychiatrist Dr. Gold was consulted for patient's alcohol withdrawal along with history of bipolar disorder and paranoia. Patient was treated with a Librium taper, multivitamins, folate, and thiamine. Patient also had a left wrist injury for which he was seen in the ED one month ago. A repeat X-ray on showed an acute transverse comminuted intra-articular fracture in the distal radius and soft tissue swelling in the wrist joint. Patient had not been using his short arm wrist brace from prior admission. Orthopedic consult was placed but the patient did not wish to remain and signed AMA. The patient declines further treatment for his left wrist fracture. This action was against medical advice. This decision was made with informed refusal. The patient was told that further evaluation was necessary. Explanation of the reasons why were discussed. The risks of leaving were explained to the patient and include, but are not limited to, worsening of known or currently unknown conditions, permanent disability and from undiagnosed or untreated conditions. The patient has the capacity to make this informed decision and understands explanation of the current medical problem and risks of leaving. The patient voluntarily accepts these risks and signed an AMA form documenting the conversation. The patient was given the opportunity to ask questions and reconsider. The patient was encouraged to return to the Emergency Department at any time for further care. Discharge Exam - Head Exam Head Exam: ATRAUMATIC, NORMAL INSPECTION - Eye Exam Eye Exam: EOMI, Normal appearance - ENT Exam ENT Exam: Mucous Membranes Moist - Respiratory Exam Respiratory Exam: Clear to PA & Lateral, NORMAL BREATHING PATTERN. absent: Rales, Rhonchi, Wheezes, Respiratory Distress - Cardiovascular Exam Cardiovascular Exam: REGULAR RHYTHM, +S1, +S2 - GI/Abdominal Exam GI & Abdominal Exam: Normal Bowel Sounds, Soft. absent: Tenderness - Extremities Exam Extremities exam: pedal pulses present - Neurological Exam Neurological exam: Alert, CN II-XII Intact, Oriented x3 - Skin Skin Exam: Dry, Warm Discharge Plan - Discharge Medications Prescriptions: QUEtiapine [Seroquel XR] 150 mg PO HS #30 ter - Follow Up Plan Condition: UNKNOWN Disposition: AGAINST MEDICAL ADVICE Instructions: Quetiapine (By mouth), Alcohol Intoxication (DC), Abuse of Alcohol (DC), Alcohol Dependence (GEN) Additional Instructions: please take your medications as instructed by your doctor. please follow up with your PMD,if you don't have a PMD ,FOLLOW UP WITH OUR CLINIC AND PLEASE TO CALL FOR APPOINTMENT. PLEAE FOLLOW UP WITH THE [facility], INSTRUCTED BY YOUR DOCTOR. Referrals: at [facility] [Outside] Yaz Fulton MD [Staff Provider] - <Jesus Rodriguez - Last Filed: 09/20/17 20:35> Provider - Provider Date of Admission: 09/16/17 14:40 Attending physician: Lauren Poe, Hospital Course - Lab Results Lab Results: Most Recent Lab Values WBC 4.7 K/uL (4.8-10.8) L 09/20/17 07:07 RBC 4.56 Mil/uL (4.40-5.90) 09/20/17 07:07 Hgb 14.1 g/dL (12.0-18.0) 09/20/17 07:07 Hct 41.9 % (35.0-51.0) 09/20/17 07:07 MCV 92.0 fL (80.0-94.0) 09/20/17 07:07 MCH 31.0 pg (27.0-31.0) 09/20/17 07:07 MCHC 33.7 g/dL (33.0-37.0) 09/20/17 07:07 RDW 15.6 % (11.5-14.5) H 09/20/17 07:07 Plt Count 47 K/uL (130-400) L 09/20/17 07:07 MPV 9.1 fL (7.2-11.7) 09/20/17 07:07 Neut % (Auto) 44.9 % (50.0-75.0) L 09/20/17 07:07 Lymph % (Auto) 46.2 % (20.0-40.0) H 09/20/17 07:07 [place] % (Auto) 6.2 % (0.0-10.0) 09/20/17 07:07 Eos % (Auto) 1.5 % (0.0-4.0) 09/20/17 07:07 Baso % (Auto) 1.2 % (0.0-2.0) 09/20/17 07:07 Neut # 2.1 K/uL (1.8-7.0) 09/20/17 07:07 Lymph # 2.2 K/uL (1.0-4.3) 09/20/17 07:07 [place] # 0.3 K/uL (0.0-0.8) 09/20/17 07:07 Eos # 0.1 K/uL (0.0-0.7) 09/20/17 07:07 Baso # 0.1 K/uL (0.0-0.2) 09/20/17 07:07 Differential Comment 09/16/17 13:26 PT 11.9 SECONDS (9.7-12.2) 09/16/17 13:26 INR 1.1 09/16/17 13:26 APTT 32 SECONDS (21-34) 09/16/17 13:26 Sodium 133 mmol/L (132-148) 09/20/17 07:07 Potassium 4.1 mmol/L (3.6-5.2) 09/20/17 07:07 Chloride 98 mmol/L (98-107) 09/20/17 07:07 Carbon Dioxide 23 mmol/L (22-30) 09/20/17 07:07 Anion Gap 16 (10-20) 09/20/17 07:07 BUN 20 mg/dL (9-20) 09/20/17 07:07 Creatinine 0.8 mg/dL (0.8-1.5) 09/20/17 07:07 Est GFR ( Amer) > 60 09/20/17 07:07 Est GFR (Non-Af Amer) > 60 09/20/17 07:07 POC Glucose (mg/dL) 248 mg/dL (65-110) H 09/17/17 21:19 Random Glucose 109 mg/dL (75-110) 09/20/17 07:07 Hemoglobin A1c 4.4 % (4.2-6.5) 09/17/17 07:09 Calcium 8.5 mg/dl (8.6-10.4) L 09/20/17 07:07 Phosphorus 3.7 mg/dL (2.5-4.5) 09/20/17 07:07 Magnesium 1.5 mg/dL (1.6-2.3) L 09/19/17 08:24 Total Bilirubin 0.6 mg/dL (0.2-1.3) 09/20/17 07:07 AST 225 U/L (17-59) H D 09/20/17 07:07 ALT 199 U/L (21-72) H D 09/20/17 07:07 Alkaline Phosphatase 115 U/L (38-126) 09/20/17 07:07 Total Creatine Kinase 193 U/L (55-170) H 09/19/17 08:24 CK-MB (Mass) 0.61 ng/mL (0.0-3.38) 09/19/17 08:24 Troponin I < 0.0120 ng/mL (0.00-0.120) 09/19/17 08:24 Total Protein 9.2 g/dL (6.3-8.3) H 09/20/17 07:07 Albumin 4.6 g/dL (3.5-5.0) 09/20/17 07:07 Globulin 4.6 gm/dL (2.2-3.9) H 09/20/17 07:07 Albumin/Globulin Ratio 1.0 (1.0-2.1) 09/20/17 07:07 Triglycerides 100 mg/dL (0-149) 09/17/17 07:09 Cholesterol 199 mg/dL (0-199) 09/17/17 07:09 LDL Cholesterol Direct 91 mg/dL (0-129) 09/17/17 07:09 HDL Cholesterol 79 mg/dL (30-70) H 09/17/17 07:09 TSH 3rd Generation 2.33 mIU/L (0.46-4.68) 09/17/17 07:09 Urine Color [place] (YELLOW) 09/16/17 13:43 Urine Clarity Clear (Clear) 09/16/17 13:43 Urine pH 6.0 (5.0-8.0) 09/16/17 13:43 Ur Specific [place] 1.027 (1.003-1.030) 09/16/17 13:43 Urine Protein 2+ mg/dL (NEGATIVE) H 09/16/17 13:43 Urine Glucose (UA) Normal mg/dL (Normal) 09/16/17 13:43 Urine Ketones 2+ mg/dL (NEGATIVE) H 09/16/17 13:43 Urine Blood Negative (NEGATIVE) 09/16/17 13:43 Urine Nitrate Negative (NEGATIVE) 09/16/17 13:43 Urine Bilirubin Negative (NEGATIVE) 09/16/17 13:43 Urine Urobilinogen 2.0 mg/dL (0.2-1.0) 09/16/17 13:43 Ur Leukocyte Esterase Neg [place]/uL (Negative) 09/16/17 13:43 Urine WBC (Auto) 1 /hpf (0-5) 09/16/17 13:43 Urine RBC (Auto) 2 /hpf (0-3) 09/16/17 13:43 Ur Squamous Epith Cells < 1 /hpf (0-5) 09/16/17 13:43 Hyaline Casts 3-5 /lpf (0-2) H 09/16/17 13:43 Urine Opiates Screen Negative (NEGATIVE) 09/16/17 13:43 Urine Methadone Screen Negative (NEGATIVE) 09/16/17 13:43 Ur Barbiturates Screen Negative (NEGATIVE) 09/16/17 13:43 Ur Phencyclidine Scrn Negative (NEGATIVE) 09/16/17 13:43 Ur Amphetamines Screen Negative (NEGATIVE) 09/16/17 13:43 U Benzodiazepines Scrn Negative (NEGATIVE) 09/16/17 13:43 U Oth Cocaine Metabols Negative (NEGATIVE) 09/16/17 13:43 U Cannabinoids Screen Negative (NEGATIVE) 09/16/17 13:43 Alcohol, Quantitative 12 mg/dl (0-10) H 09/16/17 13:26 Attending/Attestation - Attestation I have personally seen and examined this patient.: Yes I have fully participated in the care of the patient.: Yes I have reviewed all pertinent clinical information, including history, physical exam and plan: Yes Notes (Text): 09/20/17 20:34 This patient was thoroughly discussed with Resident. AMA form was completed by me and with Nurse Trena as a witness. Form was placed in front of the chart. Jesus Rodriguez D.O.
--- NOTE | 2017-09-21 22:17 | CARD ---
APPROVED REPORT EKG Measurement Heart [id number] <Conclusion> Sinus tachycardia Otherwise normal ECG
--- NOTE | 2017-09-22 09:42 | CARD ---
APPROVED REPORT EKG Measurement Heart [id number] <Conclusion> Normal sinus rhythm Nonspecific T wave abnormality poor R wave progression Abnormal ECG
--- NOTE | 2017-09-22 11:37 | CARD ---
APPROVED REPORT EKG Measurement Heart [id number] <Conclusion> Normal sinus rhythm Nonspecific T wave abnormality Abnormal ECG
== END 2017-09-20 12:09 | disposition left against medical advice (07) | DRG 894 ==
LOC: C.ER 11:52 → C.9E 14:40 → C.6T 16:04
PROVIDERS: ADMIT Hospitalist; ATTEND Hospitalist
DX: F10.239 Alcohol dependence with withdrawal, unspecified (principal); D69.59 Other secondary thrombocytopenia; R56.9 Unspecified convulsions; S52.502A Unspecified fracture of the lower end of left radius, initial encounter for closed fracture; E87.6 Hypokalemia; F22 Delusional disorders; F31.9 Bipolar disorder, unspecified; I10 Essential (primary) hypertension; R07.9 Chest pain, unspecified; R79.89 Other specified abnormal findings of blood chemistry; R00.2 Palpitations; Z79.899 Other long term (current) drug therapy; Z82.49 Family history of ischemic heart disease and other diseases of the circulatory system; Z87.891 Personal history of nicotine dependence; Z83.3 Family history of diabetes mellitus; Y90.0 Blood alcohol level of less than 20 mg/100 ml

== ENCOUNTER 2017-10-06 08:21 | Emergency (ER) | payer SELFPAY ==
[2017-10-06 08:21] VITALS: BMI 28.3
[2017-10-06 08:28] VITALS: O2SAT 100
--- NOTE | 2017-10-06 09:39 | C.PDOC ---
History Of Present Illness 52 y/o male presents to ED with complaints of pain to low back, chest and left wrist since yesterday. Patient states yesterday he slipped on ice and fell, pin did not improve which prompted visit to ED today. Patient denies loc, change in sensation, sob, cough, dysuria, bowel/bladder incontinence or any other complaints at this time. - HPI Time Seen by Provider: 10/06/17 08:45 Chief Complaint (Nursing): Trauma History Per: Patient History/Exam Limitations: no limitations Onset/Duration Of Symptoms: Days Past Medical History Reviewed: Historical Data, Nursing Documentation, Vital Signs Vital Signs: Last Vital Signs Temp 98.2 F 10/06/17 12:00 Pulse 78 10/06/17 11:00 Resp 16 10/06/17 11:00 BP 162/94 H 10/06/17 11:00 Pulse Ox 100 10/06/17 18:31 - Medical History PMH: Bipolar Disorder, Fractures (left wrist 4 days ago cast intact), HTN, Paranoia, Seizures Surgical History: Hernia Repair Family History: States: No Known Family Hx - Social History Hx Alcohol Use: Yes Hx Substance Use: No - Immunization History Hx Tetanus Toxoid Vaccination: No Hx Influenza Vaccination: Yes Hx Pneumococcal Vaccination: Yes Review Of Systems Eyes: Negative for: Vision Change Cardiovascular: Positive for: Chest Pain Respiratory: Negative for: Cough, Shortness of Breath Gastrointestinal: Negative for: Nausea Genitourinary: Negative for: Dysuria, Hematuria Musculoskeletal: Positive for: Back Pain, Hand Pain Skin: Negative for: Rash Neurological: Negative for: Weakness, Numbness Physical Exam - Physical Exam Appears: Non-toxic, No Acute Distress Skin: Warm, Dry, No Rash, No Ecchymosis Head: Atraumatic, Normacephalic Eye(s): bilateral: Normal Inspection Oral Mucosa: Moist Neck: Normal ROM, Supple Chest: Tenderness (Chest wall) Cardiovascular: Rhythm Regular Respiratory: Normal Breath Sounds, No Rales, No Rhonchi, No Wheezing Gastrointestinal/Abdominal: Soft, No Tenderness, No Guarding, No Rebound Back: No CVA Tenderness, Other (Paralumbar tenderness) Extremity: Tenderness (Diffuse to left wrist), No Deformity Neurological/Psych: Oriented x3 ED Course And Treatment ECG: Interpreted By Me, Viewed By Me ECG Rhythm: Sinus Rhythm, Nonspecific Changes ECG Interpretation: No Acute Changes Interpretation Of ECG: No acute ST/T wave changes Rate From EC O2 Sat by Pulse Oximetry: 100 (RA) Pulse Ox Interpretation: Normal - Radiology CXR: Interpreted by Me CXR Interpretation: Yes: No Acute Disease - Other Rad No standard instances X-Ray: Interpreted by Me Interpretation: LS spine X-Ray: no fx. X-Ray left wrist (+) fx. Chest X-Ray NAD Progress Note: Patient reports he re-injured his left wrist when he slipped on ice and fell. Patient was evaluated in ED 09/17 for alcohol abuse and fall and treated for wrist fx. Patient did not have splint on today. X-Rays ordered. Left wrist splint applied. EKG ordered. Patient discharged in stable condition advised to follow up with ortho clinic for further evaluation Reassessment Condition: Unchanged Medical Decision Making Medical Decision Making: Plan: Xray ordered, Motrin ordered Disposition Counseled Patient/Family Regarding: Studies Performed, Diagnosis, Need For Followup - Disposition Referrals: [facility] [Outside] [facility] [Outside] [facility] [place] [Outside] Disposition: HOME/ ROUTINE Disposition Time: 10:20 Condition: STABLE Instructions: Wrist Fracture in Adults (ED), Fall Prevention (ED) Forms: [employer] (Anguillan) Print Language: VIETNAMESE - POA Present On Arrival: None - Clinical Impression Clinical Impression: Left wrist fracture, Contusion - PA / HEALTH THERAPIST / Resident Statement MD/DO has reviewed & agrees with the documentation as recorded. - Scribe Statement The provider has reviewed the documentation as recorded by the Khurram Valencia All medical record entries made by the Khurram were at my direction and personally dictated by me. I have reviewed the chart and agree that the record accurately reflects my personal performance of the history, physical exam, medical decision making, and the department course for this patient. I have also personally directed, reviewed, and agree with the discharge instructions and disposition.
--- NOTE | 2017-10-06 09:55 | RAD ---
PROCEDURE: Left wrist dated the 10/06/2017 HISTORY: trauma COMPARISON: Comparison made with prior radiographs left wrist 09/17/2017 FINDINGS: BONES: Re- demonstrated is a comminuted intra-articular fracture traversing the distal left radius with what appears represent some impaction as well. . No significant callus formation is identified. Mild surrounding soft tissue swelling JOINTS: Normal. No dislocation. SOFT TISSUES: As above. OTHER FINDINGS: None. IMPRESSION: Re- demonstrated is a comminuted intra-articular fracture traversing the distal left radius with what may represent some impaction of fragments. No significant callus formation is identified. Mild surrounding soft tissue swelling
--- NOTE | 2017-10-06 09:58 | RAD ---
HISTORY: Cough COMPARISON: Comparison made with chest radiograph dated 09/16/2017 TECHNIQUE: Chest PA and lateral FINDINGS: LUNGS: Suspect minor bibasilar atelectasis. . PLEURA: No significant pleural effusion identified. No pneumothorax apparent. CARDIOVASCULAR: Normal. OSSEOUS STRUCTURES: Minor multilevel degenerative spondylosis of the thoracic spine all move the VISUALIZED UPPER ABDOMEN: Normal. OTHER FINDINGS: None. IMPRESSION: Minor bibasilar atelectasis.
--- NOTE | 2017-10-06 10:10 | RAD ---
PROCEDURE: Radiographs of the Lumbar Spine. HISTORY: Trauma COMPARISON: No prior. FINDINGS: BONES: Normal alignment. No listhesis. No fracture. DISC SPACES: Minor multilevel degenerative spondylosis. Changes include minor posterior disc space narrowing with small anterolateral osteophyte formation. Facet joints appear mildly hypertrophic L5-S1 through the L3-L4 levels in somewhat decreasing order of severity OTHER FINDINGS: None. IMPRESSION: No acute fractures. Mild degenerative spondylosis as described. .
[2017-10-06 12:17] VITALS: BP 162/94; PULSE 78; RESP 16; TEMP 98.2
--- NOTE | 2017-10-07 00:58 | CARD ---
APPROVED REPORT EKG Measurement Heart [id number] <Conclusion> Normal sinus rhythm T wave abnormality, consider anterior ischemia Abnormal ECG
== END 2017-10-06 12:19 | disposition home or self-care (01) ==
LOC: C.ER 08:21
DX: S62.102A Fracture of unspecified carpal bone, left wrist, initial encounter for closed fracture (principal); W00.0XXA Fall on same level due to ice and snow, initial encounter; Y92.89 Other specified places as the place of occurrence of the external cause

== ENCOUNTER 2017-10-29 15:32 | Inpatient (IN) | payer SELFPAY ==
[2017-10-29 15:33] VITALS: BMI 28.3
[2017-10-29] MEDS ORDERED: Sodium Chloride 0.9% 1,000 ML ONE (16:26)
[2017-10-29] MEDS ORDERED: Sodium Chloride 0.9% 500 ML IV STA (16:33)
[2017-10-29] MEDS ORDERED: Folic Acid 1 MG, Thiamine 100 MG, Multivitamin (MVI) 10 ML in Dextrose 5% In Water 1,00... IV SCH (16:45)
[2017-10-29 16:47] LABS: BASO % 1.1 % (0.0-2.0); EOS % 0.6 % (0.0-4.0); HEMOGLOBIN 13.8 g/dL (12.0-18.0); LYMPH # 1.1 K/uL (1.0-4.3); LYMPH % 27.3 % (20.0-40.0); MEAN CELL VOLUME 87.1 fL (80.0-94.0); MEAN CORPUSCULAR HEMOGLOBIN 30.5 pg (27.0-31.0); MEAN PLATELET VOLUME 7.5 fL (7.2-11.7); MONO # 0.2 K/uL (0.0-0.8); MONO % 5.7 % (0.0-10.0); NEUT # 2.7 K/uL (1.8-7.0); NEUT % 65.3 % (50.0-75.0); RBC 4.52 Mil/uL (4.40-5.90); RED CELL DISTRIBUTION WIDTH 15.9 % (11.5-14.5); WHITE BLOOD COUNT 4.1 K/uL (4.8-10.8)
[2017-10-29 16:54] LABS: PROTHROMBIN TIME 11.6 SECONDS (9.7-12.2)
[2017-10-29 17:00] LABS: ALB/GLOB RATIO 1.1 (1.0-2.1); ALBUMIN 4.5 g/dL (3.5-5.0); ALT/SGPT 92 U/L (21-72); AST/SGOT 197 U/L (17-59); BLOOD UREA NITROGEN 8 mg/dL (9-20); CALCIUM 8.4 mg/dl (8.6-10.4); GFR AFRICAN-AMERICAN > 60; GFR NON-AFRICAN AMERICAN > 60; MAGNESIUM 1.5 mg/dL (1.6-2.3)
[2017-10-29 17:10] LABS: CK-MB 1.42 ng/mL (0.0-3.38)
--- NOTE | 2017-10-29 17:55 | RAD ---
PROCEDURE: CHEST RADIOGRAPH, 1 VIEW HISTORY: Chest pain. COMPARISON: 10/06/2017 FINDINGS: LUNGS: Clear. PLEURA: No pneumothorax or pleural fluid seen. CARDIOVASCULAR: Normal. OSSEOUS STRUCTURES: No significant abnormalities. VISUALIZED UPPER ABDOMEN: Normal. OTHER FINDINGS: None. IMPRESSION: No active disease.No significant interval change compared to the prior examination(s).
--- NOTE | 2017-10-29 18:08 | C.PDOC ---
History Of Present Illness 52 y/o male, with PMHx of alcohol abuse, presents to ED for evaluation of chest pain that started today. Pt states that he is withdrawing from alcohol, notes last drink was yesterday. Denies shortness of breath, cough, headache, or any other complaints at this time. Time Seen by Provider: 10/29/17 16:17 Chief Complaint (Nursing): Chest Pain History Per: Patient History/Exam Limitations: no limitations Onset/Duration Of Symptoms: Hrs Current Symptoms Are (Timing): Still Present Past Medical History Reviewed: Historical Data, Nursing Documentation, Vital Signs Vital Signs: Last Vital Signs Temp 98 F 10/29/17 15:41 Pulse 81 10/29/17 16:07 Resp 20 10/29/17 15:41 BP 140/69 10/29/17 15:41 Pulse Ox 99 10/29/17 18:19 - Medical History PMH: Bipolar Disorder, Fractures (left wrist 4 days ago cast intact), HTN, Paranoia, Seizures Surgical History: Hernia Repair Family History: States: Unknown Family Hx - Social History Hx Alcohol Use: Yes Hx Substance Use: No - Immunization History Hx Tetanus Toxoid Vaccination: No Hx Influenza Vaccination: Yes Hx Pneumococcal Vaccination: Yes Review Of Systems Except As Marked, All Systems Reviewed And Found Negative. Constitutional: Negative for: Fever, Chills Cardiovascular: Positive for: Chest Pain. Negative for: Palpitations Respiratory: Negative for: Cough, Shortness of Breath Gastrointestinal: Negative for: Nausea, Vomiting, Abdominal Pain Psych: Positive for: Withdrawal Physical Exam - Physical Exam Appears: Non-toxic, No Acute Distress Skin: Normal Color, Warm, Dry Head: Atraumatic, Normacephalic Eye(s): bilateral: Normal Inspection Oral Mucosa: Moist Neck: Normal ROM, Supple Chest: Symmetrical Cardiovascular: Rhythm Regular, No Murmur Respiratory: Normal Breath Sounds, No Rales, No Rhonchi, No Wheezing Gastrointestinal/Abdominal: Soft, No Tenderness Extremity: Capillary Refill (less than 2 seconds), No Deformity, Other (tremors noted) Neurological/Psych: Oriented x3, Normal Speech ED Course And Treatment - Laboratory Results Result Diagrams: 10/29/17 16:40 10/29/17 16:40 ECG: Interpreted By Me, Viewed By Me ECG Rhythm: Sinus Rhythm ECG Interpretation: No Acute Changes Rate From EC (bpm) O2 Sat by Pulse Oximetry: 99 (RA) Pulse Ox Interpretation: Normal Progress Note: Blood work, UA, CXR ordered and reviewed. Pt was given Aspirin, Librium, Ativan, and IV fluids. Magnesium was ordered IV. On re-evaluation patient feels better, no longer has intensive tremor, awake and alert. Case was d/w who accepted case to tele for observation. Disposition - Disposition Disposition: HOSPITALIZED Disposition Time: 18:31 Condition: FAIR Forms: [employer] (Khmer) - Clinical Impression Clinical Impression: Alcohol withdrawal, Chest pain - PA / IRON WORKER / Resident Statement MD/DO has reviewed & agrees with the documentation as recorded. - Scribe Statement The provider has reviewed the documentation as recorded by the Scribe Parminder Rodriguez All medical record entries made by the Scribe were at my direction and personally dictated by me. I have reviewed the chart and agree that the record accurately reflects my personal performance of the history, physical exam, medical decision making, and the department course for this patient. I have also personally directed, reviewed, and agree with the discharge instructions and disposition. Decision To Admit - Pt Status Changed To: Hospital Disposition Of: Observation - . Bed Request Type: Telemetry Admitting Physician: Lauren Poe Patient Diagnosis: Alcohol withdrawal, Chest pain
[2017-10-29] MEDS ORDERED: Magnesium Sulfate 1 gm in D5W 1 GM/100 ML BAG IV STA (18:28)
[2017-10-29 18:59] LABS: SQUAMOUS EPITHIAL 1 /hpf (0-5); URINE BILIRUBIN NEGATIVE (NEGATIVE); URINE BLOOD NEGATIVE (NEGATIVE); URINE CLARITY Clear (Clear); URINE COLOR Amber (YELLOW); URINE GLUCOSE (UA) NORMAL (Normal); URINE LEUKOCYTE ESTERASE NEG Leu/uL (Negative); URINE NITRATE NEGATIVE (NEGATIVE); URINE PROTEIN 1+ mg/dL (NEGATIVE)
[2017-10-29 19:07] LABS: BARBITURATES, UR NEGATIVE (NEGATIVE); BENZODIAZEPINES, UR NEGATIVE (NEGATIVE); OPIATES, UR NEGATIVE (NEGATIVE); PHENCYCLIDINE, UR NEGATIVE (NEGATIVE)
[2017-10-29] MEDS ORDERED: Magnesium Sulfate 1 gm in D5W 1 GM/100 ML BAG IVPB ONE (19:30)
[2017-10-29] MEDS ORDERED: Multivitamin (MVI) 10 ML, Thiamine 100 MG, Folic Acid 1 MG in Sodium Chloride 0.9% 1,00... IV ONE (21:00)
--- NOTE | 2017-10-29 21:44 | CP.PCM.HP ---
<Delfina SchultzKim - Last Filed: 10/29/17 22:31> History of Present Illness - History of Present Illness History of Present Illness: CC: "My head was spinning" HPI: Patient is a 52 year old male with a past medical history of Paranoia and Bipolar Disorder presents to the ED with complaints of feeling like his head was spinning. He states this evening he began feeling like his head was spinning and a headache. He states he also started to have chest pain in the middle of his chest at rest. He states his like alcoholic beverage was 3 days ago. He denies history of seizures due to alcohol withdrawal. He denies any fevers, chills, palpitations, nausea, vomiting, diarrhea, constipation, lightheadedness, dizziness, hallucinations or suicidal ideation. PMD: Denies Past Medical History: Paranoia; Per chart: Bipolar Disorder Past Surgical History: Hernia repair Home Medications: per chart: Trazadone 100mg HS, Seroquel 1 tablet HS Allergies: NKDA Family History: Father from [place] at 85 years of age Social History: : Smoked 1 ppd for 3 years, drinks half pint of vodka daily- states last drink was 3 days go, denies seizures due to alcohol withdrawal, denies illicit drug use. He states he currently lives with a friend. Present on Admission - Present on Admission Any Indicators Present on Admission: No History of DVT/PE: No Review of Systems - Constitutional Constitutional: Headache. absent: Chills, Fever - EENT Eyes: absent: Change in Vision - Cardiovascular Cardiovascular: Chest Pain, Chest Pain at Rest, Lightheadedness. absent: Dyspnea, Palpitations - Respiratory Respiratory: absent: Cough, Dyspnea - Gastrointestinal Gastrointestinal: absent: Constipation, Diarrhea, Nausea, Vomiting - Genitourinary Genitourinary: absent: Dysuria - Musculoskeletal Musculoskeletal: absent: Numbness, Tingling - Neurological Neurological: Dizziness, Headaches. absent: Tremor Past Patient History - Infectious Disease Hx of Infectious Diseases: None - Past Medical History & Family History Past Medical History?: Yes - Past Social History Smoking Status: Former Smoker - CARDIAC Hx Hypertension: Yes - PULMONARY Hx Respiratory Disorders: No - NEUROLOGICAL Hx Seizures: Yes - HEENT Hx HEENT Problems: No - ENDOCRINE/METABOLIC Hx Endocrine Disorders: No - HEMATOLOGICAL/ONCOLOGICAL Hx Blood Disorders: No - INTEGUMENTARY Hx Dermatological Problems: No - MUSCULOSKELETAL/RHEUMATOLOGICAL Hx Fractures: Yes (left wrist 4 days ago cast intact) - GASTROINTESTINAL Hx Gastrointestinal Disorders: No - GENITOURINARY/GYNECOLOGICAL Hx Genitourinary Disorders: No - PSYCHIATRIC Hx Bipolar Disorder: Yes Hx Paranoia: Yes Hx Substance Use: No - SURGICAL HISTORY Hx Surgeries: Yes Hx Herniorrhaphy: Yes (left) - ANESTHESIA Hx Anesthesia: Yes Hx Anesthesia Reactions: No Meds Allergies/Adverse Reactions: Allergies Allergy/AdvReac Type Severity Reaction Status Date / Time No Known Allergies Allergy Verified 10/29/17 15:48 Physical Exam - Constitutional Appears: Toxic, No Acute Distress - Head Exam Head Exam: ATRAUMATIC, NORMAL INSPECTION - Eye Exam Eye Exam: EOMI, Normal appearance - ENT Exam ENT Exam: Mucous Membranes Dry - Respiratory Exam Respiratory Exam: Clear to Auscultation Bilateral, NORMAL BREATHING PATTERN. absent: Rales, Rhonchi, Wheezes, Stridor - Cardiovascular Exam Cardiovascular Exam: REGULAR RHYTHM, RRR, +S1, +S2 - GI/Abdominal Exam GI & Abdominal Exam: Normal Bowel Sounds, Soft. absent: Tenderness - Extremities Exam Extremities exam: Positive for: normal inspection. Negative for: pedal edema, tenderness - Neurological Exam Neurological exam: Alert, CN II-XII Intact, Oriented x3 - Expanded Neurological Exam Expanded Patient oriented to: person, place, time Sensory exam: Upper Extremity Light Touch: Normal Coma Scale Eye Opening: SPONTANEOUS Coma Scale Motor Response: OBEYS COMMANDS - Psychiatric Exam Psychiatric exam: Normal Affect, Normal Mood - Skin Skin Exam: Normal Color, Warm Results - Vital Signs Recent Vital Signs: Last Vital Signs Temp 98.4 F 10/29/17 19:46 Pulse 99 H 10/29/17 19:46 Resp 16 10/29/17 19:46 BP 134/83 10/29/17 18:50 Pulse Ox 97 10/29/17 19:46 - Labs Result Diagrams: 10/29/17 16:40 10/29/17 16:40 Labs: Laboratory Results - last 24 hr 10/29/17 10/29/17 10/29/17 16:40 16:40 16:40 WBC 4.1 L RBC 4.52 Hgb 13.8 Hct 39.4 MCV 87.1 D MCH 30.5 MCHC 35.0 RDW 15.9 H Plt Count 59 L MPV 7.5 Neut % (Auto) 65.3 Lymph % (Auto) 27.3 [place] % (Auto) 5.7 Eos % (Auto) 0.6 Baso % (Auto) 1.1 Neut # (Auto) 2.7 Lymph # (Auto) 1.1 [place] # (Auto) 0.2 Eos # (Auto) 0.0 Baso # (Auto) 0.0 PT 11.6 INR 1.0 APTT 31 Sodium 136 Potassium 3.8 Chloride 93 L Carbon Dioxide 20 L Anion Gap 26 H BUN 8 L Creatinine 0.7 L Est GFR ( Amer) > 60 Est GFR (Non-Af Amer) > 60 Random Glucose 113 H Calcium 8.4 L Magnesium 1.5 L Total Bilirubin 2.4 H AST 197 H ALT 92 H D Alkaline Phosphatase 91 Total Creatine Kinase 195 H CK-MB (Mass) 1.42 Troponin I < 0.0120 Total Protein 8.5 H Albumin 4.5 Globulin 4.0 H Albumin/Globulin Ratio 1.1 Urine Color Urine Clarity Urine pH Ur Specific Scarbro Urine Protein Urine Glucose (UA) Urine Ketones Urine Blood Urine Nitrate Urine Bilirubin Urine Urobilinogen Ur Leukocyte Esterase Urine WBC (Auto) Urine RBC (Auto) Ur Squamous Epith Cells Urine Opiates Screen Urine Methadone Screen Ur Barbiturates Screen Ur Phencyclidine Scrn Ur Amphetamines Screen U Benzodiazepines Scrn U Oth Cocaine Metabols U Cannabinoids Screen Alcohol, Quantitative 41 H 10/29/17 10/29/17 18:45 18:45 WBC RBC Hgb Hct MCV MCH MCHC RDW Plt Count MPV Neut % (Auto) Lymph % (Auto) [place] % (Auto) Eos % (Auto) Baso % (Auto) Neut # (Auto) Lymph # (Auto) [place] # (Auto) Eos # (Auto) Baso # (Auto) PT INR APTT Sodium Potassium Chloride Carbon Dioxide Anion Gap BUN Creatinine Est GFR ( Amer) Est GFR (Non-Af Amer) Random Glucose Calcium Magnesium Total Bilirubin AST ALT Alkaline Phosphatase Total Creatine Kinase CK-MB (Mass) Troponin I Total Protein Albumin Globulin Albumin/Globulin Ratio Urine Color Syeda Urine Clarity Clear Urine pH 6.0 Ur Specific [place] 1.024 Urine Protein 1+ H Urine Glucose (UA) Normal Urine Ketones 1+ H Urine Blood Negative Urine Nitrate Negative Urine Bilirubin Negative Urine Urobilinogen 4.0 Ur Leukocyte Esterase Neg Urine WBC (Auto) 1 Urine RBC (Auto) 1 Ur Squamous Epith Cells 1 Urine Opiates Screen Negative Urine Methadone Screen Negative Ur Barbiturates Screen Negative Ur Phencyclidine Scrn Negative Ur Amphetamines Screen Negative U Benzodiazepines Scrn Negative U Oth Cocaine Metabols Negative U Cannabinoids Screen Negative Alcohol, Quantitative Assessment & Plan - Assessment and Plan (Free Text) Plan: 1.) Chest pain - Troponin x1 Negative - EKG: NSR - F/U MAEVE panel x2 - F/U ekg x2 - f/u ECHO - Chest X-ray: No active disease - Aspirin 80mg po daily 2.) Alcohol abuse - Patient with hx of alcohol use disorder - Psychiatry consult, Dr Ferro - Alcohol, Quantitative: 41 - drug screen - negative - Medications: * Banana bag @100cc/hr * Folic acid 1mg PO QD * Multivitamin 1 tab PO QD * Thiamine 100mg PO QD * Ativan 1mg PO q6h PRN 3.) Elevated LFTs - Likely secondary to alcohol abuse - On admission: AST 197, ALT 92 - Continue to monitor 4.) History of paranoia and bipolar - Psychiatry consult, Dr Ferro - Continue home Seroquel 150mg PO HS - Continue home Trazodone 100mg PO HS 5.) Thrombocytopenia - Likely secondary to alcohol abuse - On admission: platelet count 59 - Continue to monitor 6.) Prophylactic measure - DVT anticoagulation contraindicated due to low platelet count - -Protonix 40mg q12h - heart healthy diet Case discussed with Dr. Adriana Schultz PGY-1 <Carroll Wright - Last Filed: 10/30/17 06:12> Results - Vital Signs Recent Vital Signs: Last Vital Signs Temp 98.5 F 10/29/17 23:00 Pulse 89 10/29/17 23:00 Resp 20 10/29/17 23:00 BP 131/76 10/29/17 23:00 Pulse Ox 95 10/29/17 23:00 - Labs Result Diagrams: 10/29/17 16:40 10/29/17 16:40 Labs: Laboratory Results - last 24 hr 10/29/17 10/29/17 10/29/17 16:40 16:40 16:40 WBC 4.1 L RBC 4.52 Hgb 13.8 Hct 39.4 MCV 87.1 D MCH 30.5 MCHC 35.0 RDW 15.9 H Plt Count 59 L MPV 7.5 Neut % (Auto) 65.3 Lymph % (Auto) 27.3 [place] % (Auto) 5.7 Eos % (Auto) 0.6 Baso % (Auto) 1.1 Neut # (Auto) 2.7 Lymph # (Auto) 1.1 [place] # (Auto) 0.2 Eos # (Auto) 0.0 Baso # (Auto) 0.0 PT 11.6 INR 1.0 APTT 31 Sodium 136 Potassium 3.8 Chloride 93 L Carbon Dioxide 20 L Anion Gap 26 H BUN 8 L Creatinine 0.7 L Est GFR ( Amer) > 60 Est GFR (Non-Af Amer) > 60 Random Glucose 113 H Calcium 8.4 L Magnesium 1.5 L Total Bilirubin 2.4 H AST 197 H ALT 92 H D Alkaline Phosphatase 91 Total Creatine Kinase 195 H CK-MB (Mass) 1.42 Troponin I < 0.0120 Total Protein 8.5 H Albumin 4.5 Globulin 4.0 H Albumin/Globulin Ratio 1.1 Urine Color Urine Clarity Urine pH Ur Specific [place] Urine Protein Urine Glucose (UA) Urine Ketones Urine Blood Urine Nitrate Urine Bilirubin Urine Urobilinogen Ur Leukocyte Esterase Urine WBC (Auto) Urine RBC (Auto) Ur Squamous Epith Cells Urine Opiates Screen Urine Methadone Screen Ur Barbiturates Screen Ur Phencyclidine Scrn Ur Amphetamines Screen U Benzodiazepines Scrn U Oth Cocaine Metabols U Cannabinoids Screen Alcohol, Quantitative 41 H 10/29/17 10/29/17 10/30/17 18:45 18:45 02:34 WBC RBC Hgb Hct MCV MCH MCHC RDW Plt Count MPV Neut % (Auto) Lymph % (Auto) [place] % (Auto) Eos % (Auto) Baso % (Auto) Neut # (Auto) Lymph # (Auto) [place] # (Auto) Eos # (Auto) Baso # (Auto) PT INR APTT Sodium Potassium Chloride Carbon Dioxide Anion Gap BUN Creatinine Est GFR ( Amer) Est GFR (Non-Af Amer) Random Glucose Calcium Magnesium Total Bilirubin AST ALT Alkaline Phosphatase Total Creatine Kinase CK-MB (Mass) Troponin I < 0.0120 Total Protein Albumin Globulin Albumin/Globulin Ratio Urine Color Syeda Urine Clarity Clear Urine pH 6.0 Ur Specific [place] 1.024 Urine Protein 1+ H Urine Glucose (UA) Normal Urine Ketones 1+ H Urine Blood Negative Urine Nitrate Negative Urine Bilirubin Negative Urine Urobilinogen 4.0 Ur Leukocyte Esterase Neg Urine WBC (Auto) 1 Urine RBC (Auto) 1 Ur Squamous Epith Cells 1 Urine Opiates Screen Negative Urine Methadone Screen Negative Ur Barbiturates Screen Negative Ur Phencyclidine Scrn Negative Ur Amphetamines Screen Negative U Benzodiazepines Scrn Negative U Oth Cocaine Metabols Negative U Cannabinoids Screen Negative Alcohol, Quantitative Assessment & Plan - Date & Time Date: 10/30/17 (I have seen and examined the patient. I agree with the findings and plan of care as documented by Dr. Schultz. Patient with chest pain. ROMIx3 with EKG. Aspirin and Statin. Also with alcohol abuse. Recommend Detox when available. [facility] protocol. Thiamine and Folate. History of thrombocytopenia. Sees Dr. Dowd as outpatient. No current complaints of bleeding. Monitor for acute changes.) Time: 06:10 Attending/Attestation - Attestation I have personally seen and examined this patient.: Yes I have fully participated in the care of the patient.: Yes I have reviewed all pertinent clinical information: Yes
[2017-10-29] MEDS ORDERED: Rosuvastatin Calcium 2.5 mg Tab PO SCH (22:00)
[2017-10-30 08:17] LABS: PROTHROMBIN TIME 11.9 SECONDS (9.7-12.2)
[2017-10-30 08:31] LABS: BASO % 0.9 % (0.0-2.0); EOS # 0.1 K/uL (0.0-0.7); EOS % 1.5 % (0.0-4.0); HEMOGLOBIN 12.2 g/dL (12.0-18.0); LYMPH # 2.2 K/uL (1.0-4.3); LYMPH % 56.8 % (20.0-40.0); MEAN CELL VOLUME 87.6 fL (80.0-94.0); MEAN CORPUSCULAR HEMOGLOBIN 31.2 pg (27.0-31.0); MEAN CORPUSCULAR HGB CONC 35.6 g/dL (33.0-37.0); MEAN PLATELET VOLUME 8.2 fL (7.2-11.7); MONO # 0.2 K/uL (0.0-0.8); MONO % 4.5 % (0.0-10.0); NEUT # 1.4 K/uL (1.8-7.0); NEUT % 36.3 % (50.0-75.0); NRBC % 0.1 % (0.0-2.0); RBC 3.9 Mil/uL (4.40-5.90); RED CELL DISTRIBUTION WIDTH 16.2 % (11.5-14.5); WHITE BLOOD COUNT 3.8 K/uL (4.8-10.8)
[2017-10-30 08:48] LABS: ALB/GLOB RATIO 1.2 (1.0-2.1); ALBUMIN 3.9 g/dL (3.5-5.0); ALT/SGPT 66 U/L (21-72); AST/SGOT 104 U/L (17-59); BLOOD UREA NITROGEN 8 mg/dL (9-20); CALCIUM 8.4 mg/dl (8.6-10.4); GFR AFRICAN-AMERICAN > 60; GFR NON-AFRICAN AMERICAN > 60; HDL CHOLESTEROL 79 mg/dL (30-70); MAGNESIUM 2.1 mg/dL (1.6-2.3)
[2017-10-30 08:54] LABS: LDL CHOLESTEROL 88 mg/dL (0-129)
[2017-10-30] MEDS: Multiple Vitamins Oral Solution PO SCH (09:57)
--- NOTE | 2017-10-30 10:33 | CP.PCM.CON ---
<Jacky Dumont - Last Filed: 10/30/17 10:27> History of Present Illness - History of Present Illness History of Present Illness: Cardiology Consult Note for Dr. Bhagat CC: Chest Pain Pt is a 52 yo M with PMH significant for psychiatric disorders presents to due to chest pain that was constant for 2 days. Pt states that chest pain feels like a pressure that is midsternal, but does not radiate. Pt denies alleviating or aggravating factors. Pt denied increased chest pain on exertion. Pt admits to heavy alcohol use, in which he drinks half a bottle of vodka daily. Pt states that he last drank 3 days ago and drinks because he feels depressed. Pt denied SOB, n/v/d, abdominal pain, fever, chills, HIGGINS, or dizziness. PMH: Paranoia, Bipolar Surg: Hernia All: NKDA FHx: MA Father, at 65 SH: Admits to 1 ppd tobacco use for 3 years, half bottle of vodka daily. Denied illicit drug use. Review of Systems - Review of Systems Review of Systems: 12 point ROS reviewed and is negative other than what is stated in HPI. Past Patient History - Infectious Disease Hx of Infectious Diseases: None - Past Medical History & Family History Past Medical History?: Yes - Past Social History Smoking Status: Former Smoker - CARDIAC Hx Hypertension: Yes - PULMONARY Hx Respiratory Disorders: No - NEUROLOGICAL Hx Seizures: Yes - HEENT Hx HEENT Problems: No - ENDOCRINE/METABOLIC Hx Endocrine Disorders: No - HEMATOLOGICAL/ONCOLOGICAL Hx Blood Disorders: No - INTEGUMENTARY Hx Dermatological Problems: No - MUSCULOSKELETAL/RHEUMATOLOGICAL Hx Fractures: Yes (left wrist 4 days ago cast intact) - GASTROINTESTINAL Hx Gastrointestinal Disorders: No - GENITOURINARY/GYNECOLOGICAL Hx Genitourinary Disorders: No - PSYCHIATRIC Hx Bipolar Disorder: Yes Hx Paranoia: Yes Hx Substance Use: No - SURGICAL HISTORY Hx Surgeries: Yes Hx Herniorrhaphy: Yes (left) - ANESTHESIA Hx Anesthesia: Yes Hx Anesthesia Reactions: No Meds Allergies/Adverse Reactions: Allergies Allergy/AdvReac Type Severity Reaction Status Date / Time No Known Allergies Allergy Verified 10/29/17 15:48 - Medications Medications: Current Medications Aspirin (Aspirin Chewable) 81 mg PO DAILY [facility] Last Admin: 10/30/17 09:20 Dose: 81 mg Folic Acid (Folic Acid) 1 mg PO DAILY [facility] Last Admin: 10/30/17 09:20 Dose: 1 mg Lorazepam (Ativan) 2 mg IVP Q8H PRN; Taper PRN Reason: Anxiety Stop: 11/03/17 20:43 Multivitamins/Vitamin C (Multi-Delyn Liquid) 5 ml PO DAILY [facility] Last Admin: 10/30/17 09:57 Dose: 5 ml Pantoprazole Sodium (Protonix Inj) 40 mg IVP Q12H [facility] Last Admin: 10/30/17 09:29 Dose: 40 mg Quetiapine Fumarate (Seroquel) 150 mg PO [facility] Last Admin: 10/29/17 23:28 Dose: 150 mg Thiamine HCl (Vitamin B1 Tab) 100 mg PO DAILY [facility] Last Admin: 10/30/17 09:20 Dose: 100 mg Trazodone HCl (Desyrel) 100 mg PO [facility] Last Admin: 10/29/17 23:22 Dose: 100 mg Physical Exam - Constitutional Appears: No Acute Distress - Head Exam Head Exam: NORMAL INSPECTION - Eye Exam Eye Exam: Normal appearance - ENT Exam ENT Exam: Normal Exam - Neck Exam Neck exam: Positive for: Normal Inspection - Respiratory Exam Respiratory Exam: Clear to Auscultation Bilateral. absent: Accessory Muscle Use , Rales, Rhonchi, Wheezes, Respiratory Distress - Cardiovascular Exam Cardiovascular Exam: RRR, +S1, +S2. absent: Diastolic murmur, Gallop, Rubs, Systolic Murmur - GI/Abdominal Exam GI & Abdominal Exam: Soft. absent: Distended, Firm, Hernia, Rebound, Rigid, Tenderness - Extremities Exam Extremities exam: Positive for: normal inspection - Back Exam Back exam: NORMAL INSPECTION - Neurological Exam Neurological exam: Alert, Oriented x3 - Skin Skin Exam: Dry, Intact, Normal Color, Warm Results - Vital Signs Recent Vital Signs: Last Vital Signs Temp 97.6 F 10/30/17 07:53 Pulse 65 10/30/17 07:53 Resp 20 10/30/17 07:53 BP 134/84 10/30/17 07:53 Pulse Ox 97 10/30/17 07:53 - Labs Result Diagrams: 10/30/17 07:54 10/30/17 07:54 Labs: Laboratory Results - last 24 hr 10/29/17 10/29/17 10/29/17 16:40 16:40 16:40 WBC 4.1 L RBC 4.52 Hgb 13.8 Hct 39.4 MCV 87.1 D MCH 30.5 MCHC 35.0 RDW 15.9 H Plt Count 59 L MPV 7.5 Neut % (Auto) 65.3 Lymph % (Auto) 27.3 [place] % (Auto) 5.7 Eos % (Auto) 0.6 Baso % (Auto) 1.1 Neut # (Auto) 2.7 Lymph # (Auto) 1.1 [place] # (Auto) 0.2 Eos # (Auto) 0.0 Baso # (Auto) 0.0 PT 11.6 INR 1.0 APTT 31 Sodium 136 Potassium 3.8 Chloride 93 L Carbon Dioxide 20 L Anion Gap 26 H BUN 8 L Creatinine 0.7 L Est GFR ( Amer) > 60 Est GFR (Non-Af Amer) > 60 Random Glucose 113 H Calcium 8.4 L Phosphorus Magnesium 1.5 L Total Bilirubin 2.4 H AST 197 H ALT 92 H D Alkaline Phosphatase 91 Total Creatine Kinase 195 H CK-MB (Mass) 1.42 Troponin I < 0.0120 Total Protein 8.5 H Albumin 4.5 Globulin 4.0 H Albumin/Globulin Ratio 1.1 Triglycerides Cholesterol LDL Cholesterol Direct HDL Cholesterol Urine Color Urine Clarity Urine pH Ur Specific [place] Urine Protein Urine Glucose (UA) Urine Ketones Urine Blood Urine Nitrate Urine Bilirubin Urine Urobilinogen Ur Leukocyte Esterase Urine WBC (Auto) Urine RBC (Auto) Ur Squamous Epith Cells Urine Opiates Screen Urine Methadone Screen Ur Barbiturates Screen Ur Phencyclidine Scrn Ur Amphetamines Screen U Benzodiazepines Scrn U Oth Cocaine Metabols U Cannabinoids Screen Alcohol, Quantitative 41 H 10/29/17 10/29/17 10/30/17 18:45 18:45 02:34 WBC RBC Hgb Hct MCV MCH MCHC RDW Plt Count MPV Neut % (Auto) Lymph % (Auto) [place] % (Auto) Eos % (Auto) Baso % (Auto) Neut # (Auto) Lymph # (Auto) [place] # (Auto) Eos # (Auto) Baso # (Auto) PT INR APTT Sodium Potassium Chloride Carbon Dioxide Anion Gap BUN Creatinine Est GFR ( Amer) Est GFR (Non-Af Amer) Random Glucose Calcium Phosphorus Magnesium Total Bilirubin AST ALT Alkaline Phosphatase Total Creatine Kinase CK-MB (Mass) Troponin I < 0.0120 Total Protein Albumin Globulin Albumin/Globulin Ratio Triglycerides Cholesterol LDL Cholesterol Direct HDL Cholesterol Urine Color Syeda Urine Clarity Clear Urine pH 6.0 Ur Specific [place] 1.024 Urine Protein 1+ H Urine Glucose (UA) Normal Urine Ketones 1+ H Urine Blood Negative Urine Nitrate Negative Urine Bilirubin Negative Urine Urobilinogen 4.0 Ur Leukocyte Esterase Neg Urine WBC (Auto) 1 Urine RBC (Auto) 1 Ur Squamous Epith Cells 1 Urine Opiates Screen Negative Urine Methadone Screen Negative Ur Barbiturates Screen Negative Ur Phencyclidine Scrn Negative Ur Amphetamines Screen Negative U Benzodiazepines Scrn Negative U Oth Cocaine Metabols Negative U Cannabinoids Screen Negative Alcohol, Quantitative 10/30/17 10/30/17 10/30/17 07:54 07:54 07:54 WBC 3.8 L RBC 3.90 L Hgb 12.2 Hct 34.2 L MCV 87.6 MCH 31.2 H MCHC 35.6 RDW 16.2 H Plt Count 45 L MPV 8.2 Neut % (Auto) 36.3 L Lymph % (Auto) 56.8 H [place] % (Auto) 4.5 Eos % (Auto) 1.5 Baso % (Auto) 0.9 Neut # (Auto) 1.4 L Lymph # (Auto) 2.2 [place] # (Auto) 0.2 Eos # (Auto) 0.1 Baso # (Auto) 0.0 PT 11.9 INR 1.0 APTT Sodium 135 Potassium 3.0 L Chloride 97 L Carbon Dioxide 27 Anion Gap 14 BUN 8 L Creatinine 0.6 L Est GFR ( Amer) > 60 Est GFR (Non-Af Amer) > 60 Random Glucose 116 H Calcium 8.4 L Phosphorus 2.9 Magnesium 2.1 Total Bilirubin 2.4 H AST 104 H D ALT 66 Alkaline Phosphatase 72 Total Creatine Kinase CK-MB (Mass) Troponin I Total Protein 7.1 Albumin 3.9 Globulin 3.2 Albumin/Globulin Ratio 1.2 Triglycerides 123 D Cholesterol 190 LDL Cholesterol Direct 88 HDL Cholesterol 79 H Urine Color Urine Clarity Urine pH Ur Specific [place] Urine Protein Urine Glucose (UA) Urine Ketones Urine Blood Urine Nitrate Urine Bilirubin Urine Urobilinogen Ur Leukocyte Esterase Urine WBC (Auto) Urine RBC (Auto) Ur Squamous Epith Cells Urine Opiates Screen Urine Methadone Screen Ur Barbiturates Screen Ur Phencyclidine Scrn Ur Amphetamines Screen U Benzodiazepines Scrn U Oth Cocaine Metabols U Cannabinoids Screen Alcohol, Quantitative Assessment & Plan - Assessment and Plan (Free Text) Assessment: 52 yo M with PMH significant for psychiatric disorders will be evaluated and treated for Chest Pain. Plan: 1. Chest Pain - Troponin negative x2, follow up trend x1 - EKG showed T-wave abnormalities on anteroseptal leads - ASCVD 10-yr risk 6.1% - Cont Crestor, ASA, Lopressor - Plan for stress test on Wednesday 2. Alcohol Abuse/Withdrawal - Management per primary 3. Pancytopenia - Likely 2/2 alcoholic bone marrow suppression - Cont to monitor 4. Transaminitis - Elevated LFT's likely 2/2 alcohol abuse - cont to monitor - Management per primary GI/DVT PPx - Per primary Pt seen and discussed in detail with Dr. Bhagat. Nathanael Dumont, PGY1 <Doyle Bhagat - Last Filed: 10/30/17 10:49> Meds - Medications Medications: Current Medications Aspirin (Aspirin Chewable) 81 mg PO DAILY [facility] Last Admin: 10/30/17 09:20 Dose: 81 mg Folic Acid (Folic Acid) 1 mg PO DAILY [facility] Last Admin: 10/30/17 09:20 Dose: 1 mg Lorazepam (Ativan) 2 mg IVP Q8H PRN; Taper PRN Reason: Anxiety Stop: 11/03/17 20:43 Metoprolol Tartrate (Lopressor) 25 mg PO BIDBS [facility] Multivitamins/Vitamin C (Multi-Delyn Liquid) 5 ml PO DAILY [facility] Last Admin: 10/30/17 09:57 Dose: 5 ml Pantoprazole Sodium (Protonix Inj) 40 mg IVP Q12H [facility] Last Admin: 10/30/17 09:29 Dose: 40 mg Quetiapine Fumarate (Seroquel) 150 mg PO HS [facility] Last Admin: 10/29/17 23:28 Dose: 150 mg Rosuvastatin Calcium (Crestor) 10 mg PO HS [facility] Thiamine HCl (Vitamin B1 Tab) 100 mg PO DAILY [facility] Last Admin: 10/30/17 09:20 Dose: 100 mg Trazodone HCl (Desyrel) 100 mg PO HS [facility] Last Admin: 10/29/17 23:22 Dose: 100 mg Results - Vital Signs Recent Vital Signs: Last Vital Signs Temp 97.6 F 10/30/17 07:53 Pulse 65 10/30/17 07:53 Resp 20 10/30/17 07:53 BP 134/84 10/30/17 07:53 Pulse Ox 97 10/30/17 07:53 - Labs Result Diagrams: 10/30/17 07:54 10/30/17 07:54 Labs: Laboratory Results - last 24 hr 10/29/17 10/29/17 10/29/17 16:40 16:40 16:40 WBC 4.1 L RBC 4.52 Hgb 13.8 Hct 39.4 MCV 87.1 D MCH 30.5 MCHC 35.0 RDW 15.9 H Plt Count 59 L MPV 7.5 Neut % (Auto) 65.3 Lymph % (Auto) 27.3 [place] % (Auto) 5.7 Eos % (Auto) 0.6 Baso % (Auto) 1.1 Neut # (Auto) 2.7 Lymph # (Auto) 1.1 [place] # (Auto) 0.2 Eos # (Auto) 0.0 Baso # (Auto) 0.0 PT 11.6 INR 1.0 APTT 31 Sodium 136 Potassium 3.8 Chloride 93 L Carbon Dioxide 20 L Anion Gap 26 H BUN 8 L Creatinine 0.7 L Est GFR ( Amer) > 60 Est GFR (Non-Af Amer) > 60 Random Glucose 113 H Calcium 8.4 L Phosphorus Magnesium 1.5 L Total Bilirubin 2.4 H AST 197 H ALT 92 H D Alkaline Phosphatase 91 Total Creatine Kinase 195 H CK-MB (Mass) 1.42 Troponin I < 0.0120 Total Protein 8.5 H Albumin 4.5 Globulin 4.0 H Albumin/Globulin Ratio 1.1 Triglycerides Cholesterol LDL Cholesterol Direct HDL Cholesterol Urine Color Urine Clarity Urine pH Ur Specific [place] Urine Protein Urine Glucose (UA) Urine Ketones Urine Blood Urine Nitrate Urine Bilirubin Urine Urobilinogen Ur Leukocyte Esterase Urine WBC (Auto) Urine RBC (Auto) Ur Squamous Epith Cells Urine Opiates Screen Urine Methadone Screen Ur Barbiturates Screen Ur Phencyclidine Scrn Ur Amphetamines Screen U Benzodiazepines Scrn U Oth Cocaine Metabols U Cannabinoids Screen Alcohol, Quantitative 41 H 10/29/17 10/29/17 10/30/17 18:45 18:45 02:34 WBC RBC Hgb Hct MCV MCH MCHC RDW Plt Count MPV Neut % (Auto) Lymph % (Auto) [place] % (Auto) Eos % (Auto) Baso % (Auto) Neut # (Auto) Lymph # (Auto) [place] # (Auto) Eos # (Auto) Baso # (Auto) PT INR APTT Sodium Potassium Chloride Carbon Dioxide Anion Gap BUN Creatinine Est GFR ( Amer) Est GFR (Non-Af Amer) Random Glucose Calcium Phosphorus Magnesium Total Bilirubin AST ALT Alkaline Phosphatase Total Creatine Kinase CK-MB (Mass) Troponin I < 0.0120 Total Protein Albumin Globulin Albumin/Globulin Ratio Triglycerides Cholesterol LDL Cholesterol Direct HDL Cholesterol Urine Color [place] Urine Clarity Clear Urine pH 6.0 Ur Specific [place] 1.024 Urine Protein 1+ H Urine Glucose (UA) Normal Urine Ketones 1+ H Urine Blood Negative Urine Nitrate Negative Urine Bilirubin Negative Urine Urobilinogen 4.0 Ur Leukocyte Esterase Neg Urine WBC (Auto) 1 Urine RBC (Auto) 1 Ur Squamous Epith Cells 1 Urine Opiates Screen Negative Urine Methadone Screen Negative Ur Barbiturates Screen Negative Ur Phencyclidine Scrn Negative Ur Amphetamines Screen Negative U Benzodiazepines Scrn Negative U Oth Cocaine Metabols Negative U Cannabinoids Screen Negative Alcohol, Quantitative 10/30/17 10/30/17 10/30/17 07:54 07:54 07:54 WBC 3.8 L RBC 3.90 L Hgb 12.2 Hct 34.2 L MCV 87.6 MCH 31.2 H MCHC 35.6 RDW 16.2 H Plt Count 45 L MPV 8.2 Neut % (Auto) 36.3 L Lymph % (Auto) 56.8 H [place] % (Auto) 4.5 Eos % (Auto) 1.5 Baso % (Auto) 0.9 Neut # (Auto) 1.4 L Lymph # (Auto) 2.2 [place] # (Auto) 0.2 Eos # (Auto) 0.1 Baso # (Auto) 0.0 PT 11.9 INR 1.0 APTT Sodium 135 Potassium 3.0 L Chloride 97 L Carbon Dioxide 27 Anion Gap 14 BUN 8 L Creatinine 0.6 L Est GFR ( Amer) > 60 Est GFR (Non-Af Amer) > 60 Random Glucose 116 H Calcium 8.4 L Phosphorus 2.9 Magnesium 2.1 Total Bilirubin 2.4 H AST 104 H D ALT 66 Alkaline Phosphatase 72 Total Creatine Kinase CK-MB (Mass) Troponin I Total Protein 7.1 Albumin 3.9 Globulin 3.2 Albumin/Globulin Ratio 1.2 Triglycerides 123 D Cholesterol 190 LDL Cholesterol Direct 88 HDL Cholesterol 79 H Urine Color Urine Clarity Urine pH Ur Specific [place] Urine Protein Urine Glucose (UA) Urine Ketones Urine Blood Urine Nitrate Urine Bilirubin Urine Urobilinogen Ur Leukocyte Esterase Urine WBC (Auto) Urine RBC (Auto) Ur Squamous Epith Cells Urine Opiates Screen Urine Methadone Screen Ur Barbiturates Screen Ur Phencyclidine Scrn Ur Amphetamines Screen U Benzodiazepines Scrn U Oth Cocaine Metabols U Cannabinoids Screen Alcohol, Quantitative 10/30/17 10:15 WBC RBC Hgb Hct MCV MCH MCHC RDW Plt Count MPV Neut % (Auto) Lymph % (Auto) [place] % (Auto) Eos % (Auto) Baso % (Auto) Neut # (Auto) Lymph # (Auto) [place] # (Auto) Eos # (Auto) Baso # (Auto) PT INR APTT Sodium Potassium Chloride Carbon Dioxide Anion Gap BUN Creatinine Est GFR ( Amer) Est GFR (Non-Af Amer) Random Glucose Calcium Phosphorus Magnesium Total Bilirubin AST ALT Alkaline Phosphatase Total Creatine Kinase 171 H CK-MB (Mass) 0.76 Troponin I Total Protein Albumin Globulin Albumin/Globulin Ratio Triglycerides Cholesterol LDL Cholesterol Direct HDL Cholesterol Urine Color Urine Clarity Urine pH Ur Specific [place] Urine Protein Urine Glucose (UA) Urine Ketones Urine Blood Urine Nitrate Urine Bilirubin Urine Urobilinogen Ur Leukocyte Esterase Urine WBC (Auto) Urine RBC (Auto) Ur Squamous Epith Cells Urine Opiates Screen Urine Methadone Screen Ur Barbiturates Screen Ur Phencyclidine Scrn Ur Amphetamines Screen U Benzodiazepines Scrn U Oth Cocaine Metabols U Cannabinoids Screen Alcohol, Quantitative Attending/Attestation - Attestation I have personally seen and examined this patient.: Yes I have fully participated in the care of the patient.: Yes I have reviewed all pertinent clinical information: Yes
[2017-10-30 10:38] LABS: CK-MB 0.76 ng/mL (0.0-3.38)
--- NOTE | 2017-10-30 11:44 | PCM.PSYCH ---
Initial Psychiatric Evaluation - Initial Psychiatric Evaluation Type of Admission: Voluntary Legal Status: Capacity Current Medications: Active Medications Generic Name Dose Route Start Last Admin Trade Name Freq PRN Reason Stop Dose Admin Aspirin 81 mg 10/30/17 10:00 10/30/17 09:20 Aspirin Chewable PO 81 mg DAILY [facility] Administration Folic Acid 1 mg 10/30/17 10:00 10/30/17 09:20 Folic Acid PO 1 mg DAILY [facility] Administration Lorazepam 2 mg 10/29/17 20:44 Ativan IVP 11/03/17 20:43 Q8H PRN Anxiety Taper Metoprolol Tartrate 25 mg 10/30/17 10:45 Lopressor PO BIDBS [facility] Multivitamins/Vitamin C 5 ml 10/30/17 10:00 10/30/17 09:57 Multi-Delyn Liquid PO 5 ml DAILY [facility] Administration Pantoprazole Sodium 40 mg 10/29/17 21:15 10/30/17 09:29 Protonix Inj IVP 40 mg Q12H [facility] Administration Quetiapine Fumarate 150 mg 10/29/17 22:00 10/29/17 23:28 Seroquel PO 150 mg HS [facility] Administration Rosuvastatin Calcium 10 mg 10/30/17 22:00 Crestor PO HS [facility] Thiamine HCl 100 mg 10/30/17 10:00 10/30/17 09:20 Vitamin B1 Tab PO 100 mg DAILY [facility] Administration Trazodone HCl 100 mg 10/29/17 22:00 10/29/17 23:22 Desyrel PO 100 mg HS [facility] Administration Past Psychiatric History - Past Psychiatric History Previous Treatment History: Inpatient Pertinent Medical Hx (Current Medical&Sleep Prob, Allergies): Allergies Allergy/AdvReac Type Severity Reaction Status Date / Time No Known Allergies Allergy Verified 10/29/17 15:48 QUEtiapine [Seroquel XR] 150 mg PO HS #30 ter 09/20/17 traZODone [Desyrel] 100 mg PO HS 10/06/17 Review of Systems - Review of Systems All systems: reviewed and no additional remarkable complaints except - Psychiatric Psychiatric: Anxiety, Auditory Hallucinations, Irritability, Mood Swings, Paranoia. absent: Suicidal Ideation Mental Status Examination - Personal Presentation Personal Presentation: Looks stated age - Affect Affect: Constricted, Depressed - Reliability in Providing Information Reliability in Providing Information: Poor, due to alteration in thoughts, Poor , due to altered mood - Speech Speech: Disorganized - Mood Mood: Depressed, Anxious - Formal Thought Process Formal Thought Process: Hallucinations, Delusions, Paranoia, Loosening of associations - Hallucinations/Delusions Hallucinations: Visual, Auditory Delusions: Persecution - Obsessions/Compulsions Obsessions: No Compulsions: No - Cognitive Functions Orientation: Person, Place, Situation, Time Sensorium: Alert Attention/Concentration: Attentive Abstract Thinking: [place] Estimate of Intelligence: Below average Judgement: Imparied, as evidence by: Poor judgement, Imparied, as evidence by: Lack of insight into illness - Risk Risk: Withdrawal, Diminished functioning - Limitations Limitations: Living alone DSM 5 DX - DSM 5 DSM 5 Diagnosis: Alcohol use disorder severe Alcohol withdrawal Bipolar disorder mixed severe with psychotic features - Recommended/Plan of Treatment Treatment Recommendations and Plan of Treatment: Alcohol use disorder severe Alcohol withdrawal Ativan taper Bipolar disorder mixed severe with psychotic features Start Seroquel 150 mg by mouth daily Trazodone 100 mg by mouth daily at bedtime
[2017-10-30] MEDS: Potassium Chloride 20 mEq ER Tab PO SCH ×2 (15:08→17:35)
--- NOTE | 2017-10-30 16:09 | CP.PCM.PN ---
<Edda Croft - Last Filed: 10/30/17 16:34> Subjective - Date & Time of Evaluation Date of Evaluation: 10/30/17 Time of Evaluation: 09:00 - Subjective Subjective: PGY [address] Poe: Patient was seen and examined at bedside. He stated that his chest pain had resolved. He was eating well and tolerating his diet. He denied SOB. Patient stated he did not feels like he has symptoms of withdrawal but still appeared to have mild tremors. The patient was stating that he wanted to be transferred to psych. He was asking many times when he could go home. It was explained to the patient that he would need to stay on the medical floor until he can have a stress test done on Wednesday, then he could potentially go to the psych floor. Patient was told that if he wanted to leave before this test then he would have to sign out AMA. Patient had no new complaints at this time. Objective - Vital Signs/Intake and Output Vital Signs (last 24 hours): Temp Pulse Resp BP Pulse Ox 97.8 F 87 18 140/100 H 100 10/30/17 15:32 10/30/17 15:32 10/30/17 15:32 10/30/17 15:32 10/30/17 15:32 Intake and Output: 10/30/17 10/30/17 06:59 18:59 Intake Total 920 Balance 920 - Medications Medications: Current Medications Aspirin (Aspirin Chewable) 81 mg PO DAILY [facility] Last Admin: 10/30/17 09:20 Dose: 81 mg Folic Acid (Folic Acid) 1 mg PO DAILY [facility] Last Admin: 10/30/17 09:20 Dose: 1 mg Lorazepam (Ativan) 2 mg IVP Q8H PRN; Taper PRN Reason: Anxiety Stop: 11/03/17 20:43 Metoprolol Tartrate (Lopressor) 25 mg PO BIDBS [facility] Last Admin: 10/30/17 11:53 Dose: 25 mg Multivitamins/Vitamin C (Multi-Delyn Liquid) 5 ml PO DAILY [facility] Last Admin: 10/30/17 09:57 Dose: 5 ml Pantoprazole Sodium (Protonix Inj) 40 mg IVP Q12H [facility] Last Admin: 10/30/17 09:29 Dose: 40 mg Pneumococcal Polyvalent Vaccine (Pneumovax 23 Vaccine) 0.5 ml IM .ONCE ONE Stop: 10/31/17 10:01 Potassium Chloride (K-Dur 20 Meq Er Tab) 40 meq PO Q2 [facility] Stop: 10/30/17 18:01 Last Admin: 10/30/17 15:08 Dose: 40 meq Quetiapine Fumarate (Seroquel) 150 mg PO HS [facility] Last Admin: 10/29/17 23:28 Dose: 150 mg Rosuvastatin Calcium (Crestor) 10 mg PO [facility] Thiamine HCl (Vitamin B1 Tab) 100 mg PO DAILY [facility] Last Admin: 10/30/17 09:20 Dose: 100 mg Trazodone HCl (Desyrel) 100 mg PO [facility] Last Admin: 10/29/17 23:22 Dose: 100 mg - Labs Labs: 10/30/17 07:54 10/30/17 07:54 PT 11.9 SECONDS (9.7-12.2) 10/30/17 07:54 INR 1.0 10/30/17 07:54 APTT 31 SECONDS (21-34) 10/29/17 16:40 - Constitutional Appears: Non-toxic, No Acute Distress - Head Exam Head Exam: NORMAL INSPECTION - Eye Exam Eye Exam: EOMI - ENT Exam ENT Exam: Mucous Membranes Moist - Respiratory Exam Respiratory Exam: Clear to Ausculation Bilateral, NORMAL BREATHING PATTERN. absent: Respiratory Distress - Cardiovascular Exam Cardiovascular Exam: REGULAR RHYTHM, +S1, +S2 - GI/Abdominal Exam GI & Abdominal Exam: Soft, Normal Bowel Sounds. absent: Distended, Firm, Guarding, Tenderness - Extremities Exam Extremities Exam: Normal Inspection - Back Exam Back Exam: NORMAL INSPECTION. absent: CVA tenderness (L), CVA tenderness (R), paraspinal tenderness - Neurological Exam Neurological Exam: Alert, Awake, Oriented x3 Additional comments: mild tremors - Psychiatric Exam Psychiatric exam: Normal Affect, Normal Mood - Skin Skin Exam: Normal Color Assessment and Plan - Assessment and Plan (Free Text) Assessment: Chest pain - Troponin x3 Negative - EKG showed T-wave abnormalities on anteroseptal leads - ASCVD 10-yr risk 6.1% - f/u ECHO - Chest X-ray: No active disease - Aspirin 80mg po daily - Lopressor 25mg PO BIDBS - Crestor 10mg PO HS - Dr. Bhagat, cardiology consulted, help appreciated - for stress test on Wednesday - f/u am labs, tsh, hba1c Alcohol abuse - Patient with hx of alcohol use disorder - Psychiatry consult, Dr Ferro - help appreciated: for psych transfer once medically stable - Alcohol, Quantitative: 41 - drug screen - negative - Medications: * Banana bag @100cc/hr * Folic acid 1mg PO QD * Multivitamin 1 tab PO QD * Thiamine 100mg PO QD * Ativan 1mg PO q6h PRN Hypokalemia - K 3.0 - 40meq PO x 2 doses given today - Mg - 2.1 - f/u am labs Elevated LFTs - Likely secondary to alcohol abuse - On admission: AST 197, ALT 92 - Continue to monitor - f/u hepatitis panel History of paranoia and bipolar - Psychiatry consult, Dr Ferro - for psych transfer once medically stable - Continue home Seroquel 150mg PO HS - Continue home Trazodone 100mg PO HS Thrombocytopenia - Likely secondary to alcohol abuse - On admission: platelet count 59, today 45 - Monitor for signs of bleeding - Continue to monitor Prophylactic measure - DVT anticoagulation contraindicated due to low platelet count - Protonix 40mg q12h - Heart healthy diet Edda Lang PGY2 Case discussed with Dr. Poe. All management per Dr. Poe. <Lauren Poe V - Last Filed: 10/30/17 18:25> Objective - Vital Signs/Intake and Output Vital Signs (last 24 hours): Temp Pulse Resp BP Pulse Ox 97.8 F 87 18 140/100 H 100 10/30/17 15:32 10/30/17 15:32 10/30/17 15:32 10/30/17 17:30 10/30/17 15:32 Intake and Output: 10/30/17 10/30/17 06:59 18:59 Intake Total 920 Balance 920 - Medications Medications: Current Medications Aspirin (Aspirin Chewable) 81 mg PO DAILY [facility] Last Admin: 10/30/17 09:20 Dose: 81 mg Folic Acid (Folic Acid) 1 mg PO DAILY [facility] Last Admin: 10/30/17 09:20 Dose: 1 mg Lorazepam (Ativan) 2 mg IVP Q8H PRN; Taper PRN Reason: Anxiety Stop: 11/03/17 20:43 Metoprolol Tartrate (Lopressor) 25 mg PO BIDBS [facility] Last Admin: 10/30/17 17:30 Dose: 25 mg Multivitamins/Vitamin C (Multi-Delyn Liquid) 5 ml PO DAILY [facility] Last Admin: 10/30/17 09:57 Dose: 5 ml Pantoprazole Sodium (Protonix Inj) 40 mg IVP Q12H [facility] Last Admin: 10/30/17 09:29 Dose: 40 mg Quetiapine Fumarate (Seroquel) 150 mg PO HS [facility] Last Admin: 10/29/17 23:28 Dose: 150 mg Rosuvastatin Calcium (Crestor) 10 mg PO [facility] Thiamine HCl (Vitamin B1 Tab) 100 mg PO DAILY [facility] Last Admin: 10/30/17 09:20 Dose: 100 mg Trazodone HCl (Desyrel) 100 mg PO HS [facility] Last Admin: 10/29/17 23:22 Dose: 100 mg - Labs Labs: 10/30/17 07:54 10/30/17 07:54 PT 11.9 SECONDS (9.7-12.2) 10/30/17 07:54 INR 1.0 10/30/17 07:54 APTT 31 SECONDS (21-34) 10/29/17 16:40 Attending/Attestation - Attestation I have personally seen and examined this patient.: Yes I have fully participated in the care of the patient.: Yes I have reviewed all pertinent clinical information, including history, physical exam and plan: Yes Notes (Text): Patient seen, examined, case discussed with medical claims processor. Patient comes in with a known history of alcohol abuse and alcohol withdrawal. Patient has received banana bag overnight and patient started on by mouth medications for full acid multivitamin and thiamine. Patient is on when necessary Ativan for possible seizure withdrawal. Patient electrolytes are abnormal and will replace potassium. Patient has transaminitis likely secondary to alcoholic hepatitis. Will monitor and will exclude hepatitis viral. Cardiology consultation requested. Patient has T-wave abnormalities which are persistent in prior EKGs patient with a known family history of father who from heart attack. No prior cardiac workup initiated. Pending echocardiogram. We'll monitor thrombocytopenia again likely due to bone marrow suppression secondary to alcohol use. Chemical anticoagulation contraindicated. Patient is requesting for psychiatry. When patient is medically stable which includes cardiac workup then will discuss with psychiatry. Lastly patient was requesting to leave today however he is not medically stable. Patient is on day 2 of alcohol withdrawal and is currently having workup for chest pain as well as an abnormal EKG. Patient is aware is aware that he is here until Wednesday. Patient had is aware that if he chooses to leave it will be AGAINST MEDICAL ADVICE. Assessment/Plan 1) Chest pain * Dr. Bhagat, cardiology consulted, help appreciated - for stress test on Wednesday * Troponin x3 Negative * EKG showed T-wave abnormalities on anteroseptal leads (similar to prior EKGs) * ASCVD 10-yr risk 6.1% * f/u ECHO * Chest X-ray: No active disease * Aspirin 81mg PO daily * Lopressor 25mg PO BIDBS * Crestor 10mg PO HS * f/u am labs, tsh, hba1c 2) Alcohol abuse * Patient with hx of alcohol use disorder * Psychiatry consult, Dr Ferro - help appreciated: for psych transfer once medically stable * Alcohol, Quantitative: 41 * Drug screen - negative Medications: * Banana bag @100cc/hr completed on admission * Folic acid 1mg PO QD * Multivitamin 1 tab PO QD * Thiamine 100mg PO QD * Ativan 1mg PO q6h PRN 3) Hypokalemia * K 3.0 - 40meq PO x 2 doses given today * Mg - 2.1 * Monitor BMP and Mg2+ 4) Elevated LFTs * Likely secondary to alcohol abuse * On admission: AST 197, ALT 92 * Continue to monitor * f/u hepatitis panel 5) History of paranoia and bipolar * Psychiatry consult, Dr Ferro - for psych transfer once medically stable * Continue home Seroquel 150mg PO HS * Continue home Trazodone 100mg PO HS 6) Thrombocytopenia * Likely secondary to alcohol abuse * On admission: platelet count 59, today 45 * Monitor for signs of bleeding * Continue to monitor * chemical anticoagulation contraindicated. &) Prophylactic measure * DVT anticoagulation contraindicated due to low platelet count * Protonix 40mg qdaily * Heart healthy diet * continue telemetry
--- NOTE | 2017-10-31 01:06 | CP.PCM.PN ---
<Delfina Schultz - Last Filed: 10/31/17 06:13> Subjective - Date & Time of Evaluation Date of Evaluation: 10/31/17 Time of Evaluation: 06:00 - Subjective Subjective: Medicine Progress Note: Patient was seen and examined at bedside in the AM. Patient denies withdrawal symptoms, tremors, dizziness, headache, palpitations, shortness of breath or chest pain. Patient states he would like to be transferred to the psychiatry unit. Objective - Vital Signs/Intake and Output Vital Signs (last 24 hours): Temp Pulse Resp BP Pulse Ox 98.1 F 92 H 20 168/107 H 98 10/30/17 23:00 10/31/17 00:20 10/30/17 23:00 10/30/17 23:25 10/30/17 23:00 - Medications Medications: Current Medications Aspirin (Aspirin Chewable) 81 mg PO DAILY [facility] Last Admin: 10/30/17 09:20 Dose: 81 mg Folic Acid (Folic Acid) 1 mg PO DAILY [facility] Last Admin: 10/30/17 09:20 Dose: 1 mg Lorazepam (Ativan) 1 mg IVP Q6H PRN; Taper PRN Reason: Anxiety Stop: 11/03/17 20:43 Last Admin: 10/30/17 23:03 Dose: 1 mg Metoprolol Tartrate (Lopressor) 25 mg PO BIDBS [facility] Last Admin: 10/30/17 17:30 Dose: 25 mg Multivitamins/Vitamin C (Multi-Delyn Liquid) 5 ml PO DAILY [facility] Last Admin: 10/30/17 09:57 Dose: 5 ml Pantoprazole Sodium (Protonix Inj) 40 mg IVP Q12H [facility] Last Admin: 10/30/17 21:21 Dose: 40 mg Quetiapine Fumarate (Seroquel) 150 mg PO HS [facility] Last Admin: 10/30/17 21:17 Dose: 150 mg Rosuvastatin Calcium (Crestor) 10 mg PO HS [facility] Last Admin: 10/30/17 21:21 Dose: 10 mg Thiamine HCl (Vitamin B1 Tab) 100 mg PO DAILY [facility] Last Admin: 10/30/17 09:20 Dose: 100 mg Trazodone HCl (Desyrel) 100 mg PO HS [facility] Last Admin: 10/30/17 21:21 Dose: 100 mg - Labs Labs: 10/30/17 07:54 10/30/17 07:54 PT 11.9 SECONDS (9.7-12.2) 10/30/17 07:54 INR 1.0 10/30/17 07:54 APTT 31 SECONDS (21-34) 10/29/17 16:40 - Constitutional Appears: No Acute Distress - Head Exam Head Exam: NORMAL INSPECTION - Eye Exam Eye Exam: EOMI, Normal appearance - ENT Exam ENT Exam: Mucous Membranes Moist - Respiratory Exam Respiratory Exam: Clear to Ausculation Bilateral, NORMAL BREATHING PATTERN - Cardiovascular Exam Cardiovascular Exam: REGULAR RHYTHM, +S1, +S2 - GI/Abdominal Exam GI & Abdominal Exam: Soft, Normal Bowel Sounds. absent: Tenderness - Extremities Exam Extremities Exam: Normal Inspection - Neurological Exam Neurological Exam: Alert, Awake, Oriented x3 - Psychiatric Exam Psychiatric exam: Normal Affect, Normal Mood - Skin Skin Exam: Normal Color, Warm Assessment and Plan - Assessment and Plan (Free Text) Assessment: 1.) Chest pain - Troponin x3 Negative - EKG showed T-wave abnormalities on anteroseptal leads - ASCVD 10-yr risk 6.1% - f/u ECHO - Chest X-ray: No active disease - Aspirin 80mg po daily - Lopressor 25mg PO BIDBS - Crestor 10mg PO HS - Dr. Bhagat, cardiology consulted, help appreciated - for stress test on Wednesday - f/u am labs, tsh, hba1c - Lipid Panel: Cholesterol 190; LDL 88; HDL 79; Triglycerides 123 2.) Alcohol abuse - Patient with hx of alcohol use disorder - Psychiatry consult, Dr Ferro - help appreciated: for psych transfer once medically stable - Alcohol, Quantitative: 41 - drug screen - negative - Medications: * Banana bag @100cc/hr * Folic acid 1mg PO QD * Multivitamin 1 tab PO QD * Thiamine 100mg PO QD * Ativan 1mg PO q6h PRN 3.) Hypokalemia - K 3.0 - 40meq PO x 2 doses given today - Mg - 2.1 - f/u am labs 4.) Elevated LFTs - Likely secondary to alcohol abuse - On admission: AST 197, ALT 92 - Continue to monitor - f/u hepatitis panel 5.) History of paranoia and bipolar - Psychiatry consult, Dr Ferro - for psych transfer once medically stable - Continue home Seroquel 150mg PO HS - Continue home Trazodone 100mg PO HS 6.) Thrombocytopenia - Likely secondary to alcohol abuse - On admission: platelet count 59, today 45 - Monitor for signs of bleeding - Continue to monitor 7.) Prophylactic measure - DVT anticoagulation contraindicated due to low platelet count - Protonix 40mg q12h - Heart healthy diet <Lauren Poe V - Last Filed: 11/01/17 22:51> Objective - Vital Signs/Intake and Output Vital Signs (last 24 hours): Temp Pulse Resp BP Pulse Ox 97.6 F 100 H 20 138/92 H 96 10/31/17 16:00 10/31/17 16:00 10/31/17 16:00 10/31/17 18:26 10/31/17 16:00 - Medications Medications: Current Medications Aspirin (Aspirin Chewable) 81 mg PO DAILY [facility] Last Admin: 10/31/17 09:45 Dose: 81 mg Folic Acid (Folic Acid) 1 mg PO DAILY [facility] Last Admin: 10/31/17 09:45 Dose: 1 mg Lorazepam (Ativan) 1 mg IVP Q8H PRN; Taper PRN Reason: Anxiety Stop: 11/03/17 20:43 Last Admin: 10/31/17 15:53 Dose: 1 mg Metoprolol Tartrate (Lopressor) 25 mg PO BIDBS [facility] Last Admin: 10/31/17 18:26 Dose: 25 mg Multivitamins/Vitamin C (Multi-Delyn Liquid) 5 ml PO DAILY [facility] Last Admin: 10/31/17 09:45 Dose: 5 ml Pantoprazole Sodium (Protonix Inj) 40 mg IVP Q12H [facility] Last Admin: 10/30/17 21:21 Dose: 40 mg Quetiapine Fumarate (Seroquel) 150 mg PO HS [facility] Last Admin: 10/30/17 21:17 Dose: 150 mg Rosuvastatin Calcium (Crestor) 10 mg PO HS [facility] Last Admin: 10/31/17 21:31 Dose: 10 mg Thiamine HCl (Vitamin B1 Tab) 100 mg PO DAILY [facility] Last Admin: 10/31/17 15:50 Dose: 100 mg Trazodone HCl (Desyrel) 100 mg PO HS [facility] Last Admin: 10/31/17 21:30 Dose: 100 mg - Labs Labs: 10/31/17 11:38 10/31/17 11:38 PT 11.6 SECONDS (9.7-12.2) 10/31/17 11:38 INR 1.0 10/31/17 11:38 APTT 31 SECONDS (21-34) 10/29/17 16:40 Attending/Attestation - Attestation I have personally seen and examined this patient.: Yes I have fully participated in the care of the patient.: Yes I have reviewed all pertinent clinical information, including history, physical exam and plan: Yes Notes (Text): This is late computer entry for 10/31/17. Patient seen, examined, and case discussed with day-time resident. Patient seen this morning. Patient sitting on the chair outside in the hallway. Overnight per nursing staff, patient had locked himself in the bathroom by accident, screamed to get attention, and was a Code Echo. Patient sitting outside in the hallway. Patient does not have signs or symptoms of withdrawal. Patient is requesting to go to psychiatry. I have indicated him that tomorrow he will have the stress test to see how he is doing given his initial complaints on admission included chest pain with noted T wave inversion. Patient 's status changed to inpatient in light stress test tomorrow, Wednesday and is being currently monitored for alcohol withdrawal. Assessment/Plan 1) Chest pain Abnormal EKG Family History of CAD * Dr. Bhagat, cardiology consulted, help appreciated - for stress test on Wednesday * Troponin x3 Negative * EKG showed T-wave abnormalities on anteroseptal leads (similar to prior EKGs) * ASCVD 10-yr risk 6.1% * f/u ECHO: pending * Chest X-ray: No active disease * Aspirin 81mg PO daily * Lopressor 25mg PO BIDBS * Crestor 10mg PO HS * Tsh:3.87 * hba1c: pending * T, Cholestrol: 190, LDL; 88, HDL: 79 2) Alcohol abuse * Patient with hx of alcohol use disorder * Psychiatry consult, Dr Ferro - help appreciated: for psych transfer once medically stable * Alcohol, Quantitative: 41 * Drug screen - negative Medications: * Banana bag @100cc/hr completed on admission * Folic acid 1mg PO QD * Multivitamin 1 tab PO QD * Thiamine 100mg PO QD * Ativan 1mg PO q6h PRN 3) Hypokalemia * Monitor and replete 4) Elevated LFTs * Likely secondary to alcohol abuse * Downtrending * Continue to monitor * Hepatitis panel: negative 5) History of paranoia and bipolar * Psychiatry consult, Dr Ferro - for psych transfer once medically stable * Continue home Seroquel 150mg PO HS * Continue home Trazodone 100mg PO HS 6) Thrombocytopenia * Likely secondary to alcohol abuse * Monitor * Monitor for signs of bleeding * Continue to monitor * chemical anticoagulation contraindicated. &) Prophylactic measure * DVT anticoagulation contraindicated due to low platelet count * Protonix 40mg qdaily * Heart healthy diet * continue telemetry Disposition: patient is for cardiac stress test and follow-up with psychiatry for possible transfer [facility] pending result.
[2017-10-31] MEDS: Multiple Vitamins Oral Solution PO SCH (09:45)
[2017-10-31] MEDS ORDERED: Pneumococcal 23-Valent Vaccine IM ONE (10:00)
[2017-10-31 11:50] LABS: BASO % 0.7 % (0.0-2.0); EOS # 0.1 K/uL (0.0-0.7); EOS % 1.4 % (0.0-4.0); HEMOGLOBIN 13.2 g/dL (12.0-18.0); LYMPH # 2.1 K/uL (1.0-4.3); LYMPH % 39.5 % (20.0-40.0); MEAN CELL VOLUME 89.1 fL (80.0-94.0); MEAN CORPUSCULAR HEMOGLOBIN 30.4 pg (27.0-31.0); MEAN CORPUSCULAR HGB CONC 34.1 g/dL (33.0-37.0); MEAN PLATELET VOLUME 8.8 fL (7.2-11.7); MONO # 0.3 K/uL (0.0-0.8); NEUT # 2.8 K/uL (1.8-7.0); NEUT % 53.4 % (50.0-75.0); RBC 4.35 Mil/uL (4.40-5.90); WHITE BLOOD COUNT 5.2 K/uL (4.8-10.8)
[2017-10-31 11:51] LABS: PROTHROMBIN TIME 11.6 SECONDS (9.7-12.2)
[2017-10-31 12:12] LABS: ALB/GLOB RATIO 1.2 (1.0-2.1); ALBUMIN 4.6 g/dL (3.5-5.0); ALT/SGPT 56 U/L (21-72); AST/SGOT 66 U/L (17-59); BLOOD UREA NITROGEN 13 mg/dL (9-20); CALCIUM 9.9 mg/dl (8.6-10.4); GFR AFRICAN-AMERICAN > 60; GFR NON-AFRICAN AMERICAN > 60; MAGNESIUM 1.7 mg/dL (1.6-2.3)
--- NOTE | 2017-10-31 14:40 | PCM.PYCHPN ---
Psychiatric Progress Note - Psychiatric Progress Note Patient seen today, length of contact: 15 min Medication Change: Yes (Ativan taper) Medical Record Reviewed: Yes Mental Status Examination - Cognitive Function Orientation: Person, Place, Situation, Time Memory: Intact Attention: WNL Concentration: Poor Association: Loose Fund of Knowledge: Poor - Mood Mood: Depressed, Anxious - Affect Affect: Constricted, Depressed - Formal Thought Process Formal Thought Process: Hallucinations, Delusions, Paranoia, Loosening of associations - Suicidal Ideation Suicidal Ideation: No - Homicidal Ideation Homicidal Ideation: No Goal/Treatment Plan - Goal/Treatment Plan Need for Continued Stay: Severe depression anxiety, Severe functional impairment Progress Toward Problem(s) and Goals/Treatment Plan: Alcohol use disorder severe Alcohol withdrawal Ativan taper Bipolar disorder mixed severe with psychotic features Start Seroquel 150 mg by mouth daily Trazodone 100 mg by mouth daily at bedtime Patient will be admitted at [facility]. after medical clearance - Smoking Cessation Smoking Cessation Initiated: No
[2017-11-01 06:42] LABS: BASO % 0.6 % (0.0-2.0); EOS # 0.1 K/uL (0.0-0.7); EOS % 1.9 % (0.0-4.0); HEMOGLOBIN 13.7 g/dL (12.0-18.0); LYMPH # 2.4 K/uL (1.0-4.3); MEAN CORPUSCULAR HEMOGLOBIN 30.3 pg (27.0-31.0); MEAN PLATELET VOLUME 9.3 fL (7.2-11.7); MONO # 0.3 K/uL (0.0-0.8); MONO % 4.9 % (0.0-10.0); NEUT # 2.9 K/uL (1.8-7.0); NEUT % 50.6 % (50.0-75.0); NRBC % 0.1 % (0.0-2.0); RBC 4.52 Mil/uL (4.40-5.90); RED CELL DISTRIBUTION WIDTH 15.9 % (11.5-14.5); WHITE BLOOD COUNT 5.8 K/uL (4.8-10.8)
[2017-11-01 07:03] LABS: ALB/GLOB RATIO 1.1 (1.0-2.1); ALBUMIN 4.7 g/dL (3.5-5.0); ALT/SGPT 65 U/L (21-72); AST/SGOT 68 U/L (17-59); BLOOD UREA NITROGEN 13 mg/dL (9-20); CALCIUM 10.1 mg/dl (8.6-10.4); GFR AFRICAN-AMERICAN > 60; GFR NON-AFRICAN AMERICAN > 60; MAGNESIUM 1.8 mg/dL (1.6-2.3)
--- NOTE | 2017-11-01 07:48 | CP.PCM.PN ---
Subjective - Date & Time of Evaluation Date of Evaluation: 11/01/17 Time of Evaluation: 07:00 - Subjective Subjective: Medicine Progress Note: Patient was seen and examined at bedside in the AM. Patient denies dizziness, headache, palpitations, shortness of breath or chest pain. Objective - Vital Signs/Intake and Output Vital Signs (last 24 hours): Temp Pulse Resp BP Pulse Ox 99.1 F 88 20 144/98 H 97 10/31/17 23:00 10/31/17 23:00 10/31/17 23:00 10/31/17 23:00 10/31/17 23:00 Intake and Output: 11/01/17 11/01/17 06:59 18:59 Intake Total 480 Balance 480 - Medications Medications: Current Medications Aspirin (Aspirin Chewable) 81 mg PO DAILY [facility] Last Admin: 10/31/17 09:45 Dose: 81 mg Folic Acid (Folic Acid) 1 mg PO DAILY [facility] Last Admin: 10/31/17 09:45 Dose: 1 mg Lorazepam (Ativan) 1 mg IVP Q8H PRN; Taper PRN Reason: Anxiety Stop: 11/03/17 20:43 Last Admin: 10/31/17 23:53 Dose: 1 mg Metoprolol Tartrate (Lopressor) 25 mg PO BIDBS [facility] Last Admin: 10/31/17 18:26 Dose: 25 mg Multivitamins/Vitamin C (Multi-Delyn Liquid) 5 ml PO DAILY [facility] Last Admin: 10/31/17 09:45 Dose: 5 ml Pantoprazole Sodium (Protonix Inj) 40 mg IVP Q12H [facility] Last Admin: 10/31/17 22:15 Dose: 40 mg Quetiapine Fumarate (Seroquel) 150 mg PO HS [facility] Last Admin: 10/31/17 23:16 Dose: 150 mg Rosuvastatin Calcium (Crestor) 10 mg PO HS [facility] Last Admin: 10/31/17 21:31 Dose: 10 mg Thiamine HCl (Vitamin B1 Tab) 100 mg PO DAILY [facility] Last Admin: 10/31/17 15:50 Dose: 100 mg Trazodone HCl (Desyrel) 100 mg PO HS [facility] Last Admin: 10/31/17 21:30 Dose: 100 mg - Labs Labs: 11/01/17 06:34 11/01/17 06:34 PT 11.0 SECONDS (9.7-12.2) 11/01/17 06:34 INR 1.0 11/01/17 06:34 APTT 31 SECONDS (21-34) 10/29/17 16:40 - Constitutional Appears: No Acute Distress - Head Exam Head Exam: NORMAL INSPECTION, NORMOCEPHALIC - Eye Exam Eye Exam: EOMI, Normal appearance - ENT Exam ENT Exam: Mucous Membranes Moist - Respiratory Exam Respiratory Exam: Clear to Ausculation Bilateral, NORMAL BREATHING PATTERN - Cardiovascular Exam Cardiovascular Exam: REGULAR RHYTHM, +S1, +S2 - GI/Abdominal Exam GI & Abdominal Exam: Soft, Normal Bowel Sounds. absent: Tenderness - Extremities Exam Extremities Exam: Normal Inspection - Neurological Exam Neurological Exam: Alert, Awake, Oriented x3 - Psychiatric Exam Psychiatric exam: Normal Affect Assessment and Plan - Assessment and Plan (Free Text) Assessment: 1.) Chest pain -resolved - Troponin x3 Negative - EKG showed T-wave abnormalities on anteroseptal leads - ASCVD 10-yr risk 6.1% - f/u ECHO - f/u nuclear stress test - Chest X-ray: No active disease - Aspirin 80mg po daily - Lopressor 25mg PO BIDBS - Crestor 10mg PO HS - Dr. Bhagat, cardiology consulted, help appreciated - for stress test on Wednesday - TSH 3.87, hba1c 4.8 - Lipid Panel: Cholesterol 190; LDL 88; HDL 79; Triglycerides 123 2.) Alcohol abuse - Patient with hx of alcohol use disorder - Psychiatry consult, Dr Ferro - help appreciated: for psych transfer once medically stable - Alcohol, Quantitative: 41 - drug screen - negative - Medications: * Banana bag @100cc/hr * Folic acid 1mg PO QD * Multivitamin 1 tab PO QD * Thiamine 100mg PO QD * Ativan 1mg PO q6h PRN 3.) Hypokalemia - K 3.0 - 40meq PO x 2 doses given today - Mg - 2.1 - repleated 4.) Elevated LFTs - Likely secondary to alcohol abuse - On admission: AST 197, ALT 92 - Continue to monitor - hepatitis panel: negative 5.) History of paranoia and bipolar - Psychiatry consult, Dr Ferro - for psych transfer once medically stable - Continue home Seroquel 150mg PO HS - Continue home Trazodone 100mg PO HS 6.) Thrombocytopenia - Likely secondary to alcohol abuse - On admission: platelet count 59, today 45 - Monitor for signs of bleeding - Continue to monitor 7.) Prophylactic measure - DVT anticoagulation contraindicated due to low platelet count - Protonix 40mg q12h - Heart healthy diet
[2017-11-01 10:17] LABS: HEPATITIS B SURFACE AG Negative (NEGATIVE)
[2017-11-01 10:34] LABS: HEPATITIS C ANTIBODY NEGATIVE (NEGATIVE)
[2017-11-01 10:52] LABS: HEPATITIS A IGM NEGATIVE (NEGATIVE); HEPATITIS B CORE AB NEGATIVE (NEGATIVE)
--- NOTE | 2017-11-01 10:58 | CP.PCM.PN ---
<JuliaJacky - Last Filed: 11/01/17 17:07> Subjective - Date & Time of Evaluation Date of Evaluation: 11/01/17 Time of Evaluation: 10:56 - Subjective Subjective: Cardiology Progress Note for Dr. Bhagat Pt seen and examined at bedside. No acute overnight events. Pt states that CP is improving. Pt underwent stress test today. Pt denied SOB, palpitations, n/v/d , abdominal pain, fever, chills, HIGGINS, or dizziness. Objective - Vital Signs/Intake and Output Vital Signs (last 24 hours): Temp Pulse Resp BP Pulse Ox 98.0 F 87 20 136/91 H 97 11/01/17 07:00 11/01/17 07:00 11/01/17 07:00 11/01/17 07:00 11/01/17 07:00 Intake and Output: 11/01/17 11/01/17 06:59 18:59 Intake Total 480 Balance 480 - Medications Medications: Current Medications Aspirin (Aspirin Chewable) 81 mg PO DAILY [facility] Last Admin: 10/31/17 09:45 Dose: 81 mg Folic Acid (Folic Acid) 1 mg PO DAILY [facility] Last Admin: 10/31/17 09:45 Dose: 1 mg Lorazepam (Ativan) 1 mg IVP Q8H PRN; Taper PRN Reason: Anxiety Stop: 11/03/17 20:43 Last Admin: 10/31/17 23:53 Dose: 1 mg Metoprolol Tartrate (Lopressor) 25 mg PO BIDBS [facility] Last Admin: 10/31/17 18:26 Dose: 25 mg Multivitamins/Vitamin C (Multi-Delyn Liquid) 5 ml PO DAILY [facility] Last Admin: 10/31/17 09:45 Dose: 5 ml Pantoprazole Sodium (Protonix Inj) 40 mg IVP Q12H [facility] Last Admin: 10/31/17 22:15 Dose: 40 mg Quetiapine Fumarate (Seroquel) 150 mg PO HS [facility] Last Admin: 10/31/17 23:16 Dose: 150 mg Rosuvastatin Calcium (Crestor) 10 mg PO HS [facility] Last Admin: 10/31/17 21:31 Dose: 10 mg Thiamine HCl (Vitamin B1 Tab) 100 mg PO DAILY [facility] Last Admin: 10/31/17 15:50 Dose: 100 mg Trazodone HCl (Desyrel) 100 mg PO HS [facility] Last Admin: 10/31/17 21:30 Dose: 100 mg - Labs Labs: 11/01/17 06:34 11/01/17 06:34 PT 11.0 SECONDS (9.7-12.2) 11/01/17 06:34 INR 1.0 11/01/17 06:34 APTT 31 SECONDS (21-34) 10/29/17 16:40 - Constitutional Appears: No Acute Distress - Head Exam Head Exam: NORMAL INSPECTION - Eye Exam Eye Exam: Normal appearance - ENT Exam ENT Exam: Normal Exam - Neck Exam Neck Exam: Normal Inspection - Respiratory Exam Respiratory Exam: Clear to Ausculation Bilateral. absent: Rales, Rhonchi, Wheezes - Cardiovascular Exam Cardiovascular Exam: RRR, +S1, +S2. absent: Clicks, Gallop, Rubs, Murmur - GI/Abdominal Exam GI & Abdominal Exam: Soft. absent: Distended, Guarding, Tenderness, Rebound - Extremities Exam Extremities Exam: Normal Inspection - Back Exam Back Exam: NORMAL INSPECTION - Neurological Exam Neurological Exam: Alert, Awake, Oriented x3 - Skin Skin Exam: Dry, Intact, Normal Color, Warm Assessment and Plan - Assessment and Plan (Free Text) Assessment: 52 yo M with PMH significant for psychiatric disorders will be evaluated and treated for Chest Pain. Plan: 1. Chest Pain - Troponin negative x3 - EKG showed T-wave abnormalities on anteroseptal leads - ASCVD 10-yr risk 6.1% - Cont Crestor, ASA, Lopressor - Unremarkable stress test 2. Alcohol Abuse/Withdrawal - Management per primary 3. Pancytopenia - Likely 2/2 alcoholic bone marrow suppression - Cont to monitor 4. Transaminitis - Elevated LFT's likely 2/2 alcohol abuse - cont to monitor - Management per primary GI/DVT PPx - Per primary Dispo: Continue current medications, patient clear from cardiology standpoint. At this time we will sign off, please reconsult as needed. Pt seen and discussed in detail with Dr. Bhagat. Nathanael Dumont, PGY1 <Doyle Bhagat - Last Filed: 11/03/17 00:56> Objective - Vital Signs/Intake and Output Vital Signs (last 24 hours): Temp Pulse Resp BP Pulse Ox 98.5 F 88 20 115/75 95 11/02/17 06:16 11/02/17 16:05 11/02/17 06:16 11/02/17 22:09 11/02/17 06:16 - Medications Medications: Current Medications Aspirin (Aspirin Chewable) 81 mg PO DAILY [facility] Last Admin: 11/02/17 10:12 Dose: 81 mg Folic Acid (Folic Acid) 1 mg PO DAILY [facility] Last Admin: 11/02/17 10:11 Dose: 1 mg Lorazepam (Ativan) 1 mg IVP Q24H PRN; Taper PRN Reason: Anxiety Stop: 11/03/17 20:43 Last Admin: 11/01/17 13:51 Dose: 1 mg Metoprolol Tartrate (Lopressor) 25 mg PO BIDBS [facility] Last Admin: 11/02/17 16:05 Dose: Not Given Multivitamins (Hexavitamin) 1 tab PO DAILY [facility] Last Admin: 11/02/17 10:12 Dose: 1 tab Pantoprazole Sodium (Protonix Ec Tab) 40 mg PO DAILY [facility] Last Admin: 11/02/17 10:11 Dose: 40 mg Quetiapine Fumarate (Seroquel) 150 mg PO HS [facility] Last Admin: 11/02/17 22:08 Dose: 150 mg Rosuvastatin Calcium (Crestor) 10 mg PO HS [facility] Last Admin: 11/02/17 22:08 Dose: 10 mg Sertraline HCl (Zoloft) 50 mg PO DAILY [facility] Thiamine HCl (Vitamin B1 Tab) 100 mg PO DAILY [facility] Last Admin: 11/02/17 10:11 Dose: 100 mg Trazodone HCl (Desyrel) 100 mg PO HS [facility] Last Admin: 11/02/17 22:08 Dose: 100 mg - Labs Labs: 11/01/17 06:34 11/01/17 06:34 PT 11.0 SECONDS (9.7-12.2) 11/01/17 06:34 INR 1.0 11/01/17 06:34 APTT 31 SECONDS (21-34) 10/29/17 16:40 Attending/Attestation - Attestation I have personally seen and examined this patient.: Yes I have fully participated in the care of the patient.: Yes I have reviewed all pertinent clinical information, including history, physical exam and plan: Yes
[2017-11-01] MEDS: Multiple Vitamins Oral Solution PO SCH (12:00)
--- NOTE | 2017-11-01 14:04 | CARD ---
APPROVED REPORT EXAM: Two-dimensional and M-mode echocardiogram with Doppler and color Doppler. INDICATION Chest Pain 2D DIMENSIONS IVSd1.0 (0.7-1.1cm)LVDd4.5 (3.9-5.9cm) PWd1.0 (0.7-1.1cm)LVDs3.1 (2.5-4.0cm) FS (%) 31.8 %LVEF (%)45.0 (>50%) M-Mode DIMENSIONS Left Atrium (MM)3.61 (2.5-4.0cm)Aortic Root3.12 (2.2-3.7cm) Aortic Cusp Exc.2.07 (1.5-2.0cm) Mitral Valve MV E Lielmwae40.7cm/sMV A Asldharr36.6cm/sE/A ratio0.5 TDI E/Lateral E'0.0E/Medial E'0.0 Tricuspid Valve TR Peak Qfjijggx013be/sTR Peak Gr.78fpOaBOUQ62tdOl LEFT VENTRICLE The left ventricle is normal size. There is normal left ventricular wall thickness. The left ventricular function is normal. The left ventricular ejection fraction is within the normal range. No regional wall motion abnormalities noted. The left ventricular diastolic function is normal. No left ventricle thrombus noted on this study. There is no ventricular septal defect visualized. There is no left ventricular aneurysm. There is no mass noted in the left ventricle. RIGHT VENTRICLE The right ventricle is normal size. There is normal right ventricular wall thickness. The right ventricular systolic function is normal. ATRIA The left atrium size is normal. The right atrium size is normal. The interatrial septum is intact with no evidence for an atrial septal defect. AORTIC VALVE The aortic valve is normal in structure and function. No aortic regurgitation is present. There is no aortic valvular stenosis. There is no aortic valvular vegetation. MITRAL VALVE The mitral valve is normal in structure and function. There is no evidence of mitral valve prolapse. There is no mitral valve stenosis. There is no mitral valve regurgitation noted. TRICUSPID VALVE The tricuspid valve is normal in structure and function. There is no tricuspid valve regurgitation noted. There is no tricuspid valve prolapse or vegetation. There is no tricuspid valve stenosis. PULMONIC VALVE The pulmonary valve is normal in structure and function. There is no pulmonic valvular regurgitation. There is no pulmonic valvular stenosis. GREAT VESSELS The aortic root is normal in size. The ascending aorta is normal in size. The pulmonary artery is normal. The IVC is normal in size and collapses >50% with inspiration. PERICARDIAL EFFUSION The pericardium appears normal. There is no pleural effusion.
--- NOTE | 2017-11-01 16:44 | CARD ---
APPROVED REPORT Protocol: COLBY Test Type: NUCLEAR STRESS Test Indications: CHEST PAIN Target HR: 167 bpm Resting ECG: normal Resting Heart Rate: 107 bpm Resting Blood Pressure: 128/80mmHg submaximum (85%): 142 bpm TEST SUMMARY PRETESTWARM-[id number]. EXERCISESTAGE 103:[id number]/80.0. EXERCISESTAGE 203:[id number]. EXERCISESTAGE 300:[id number]/.0. [id number]. POST EXERCISE Reason for Termination: Fatigue Target HR: No Max HR: 162 bpm 98% of Maximum Predicted HR: 167 bpm Exercise duration: 06:25 min:sec, 3 Stage Exercise capacity: 8.2METs Max Blood Pressure: 160/80mmHg Blood Pressure response to exercise: normal resting BP - appropriate response Heart Rate response to exercise: appropriate Chest Pain: No, none Angina index: 0 Arrhythmia: Yes, ventricular premature beats ST Change: No, none Deviation: 0 mm EXAM: Myocardial Perfusion STRESS/REST Imaging Protocol The imaging protocol used to acquire images was Stress Tc-99m/rest Tc-99m 1 day Stress Spect myocardial perfusion imaging was performed in supine position 41 minutes following the injection of 12.8 mCi of Tc-99 Myoview. Gated Rest Spect was performed 40 minutes after intravenous 32.6 mCi Tc-99 Myoview injection. The images were gated to evaluate regional wall motion and calculate ventricular ejection fraction.Images were reconstructed using backfilter projection method in short horizontal and verticle long axis. Spect slices were generated. RESTING DATA EDV75.66eiJG9.70L/min1/3 Pk. Filling Rate1.85EDV/sec LV Time to Pk. Filling Rate63.86msec ESV35.00mlMyocardial Nlms099.00gLV Time to Pk. Ejection Dgxu528.95msec Pk. Fill Rate2.62EDV/secAv. Heart Rate92.00bpm EF53.00%Pk. Emptying Rate2.99ESV/sec STRESS DATA EDV73.00dlWJ0.20L/min ESV29.00mlMyocardial Amht226.00g Pk. Fill Rate1.88EDV/sec EF60.00%Pk. Emptying Rate3.73ESV/sec 1/3 Pk. Filling Rate1.38EDV/secRegional WT score at stress:0.00 LV Time to Pk. Filling Rate:71.28msecRegional WM score at stress:0.00 LV Time to Pk. Ejection Rate:161.25msecSummed WT score at stress:10.00 Av. Heart Rate93.00bpmSummed WM score at stress:9.00 Study quality was good. Left Ventricular size was Normal at Rest and Stress. LV Perf. Quant 17 Seg. SSS1.00 17 Seg. SRS0.00 17 Seg. SDS1.00 Stress Defect Extent (% LAD)0.00Rest Defect Extent (% LAD)0.00Rev. Defect Extent (% LAD)0.00 Stress Defect Extent (% LCX)0.00Rest Defect Extent (% LCX)0.00Rev. Defect Extent (% LCX)0.00 Stress Defect Extent (% RCA)0.00Rest Defect Extent (% RCA)0.00Rev. Defect Extent (% RCA)0.00 Stress Defect Extent (% WENDI)0.00Rest Defect Extent (% WENDI)0.00Rev. Defect Extent (% WENDI)0.00 Other Information Quality:Good Overall Exercise Capacity: Average IMPRESSION Normal Myocardial Perfusion exercise stress study Metabolism/Perfusion There are no perfusion/metabolism defects. Conclusion 1. - Normal myocardial perfusion study with no evidence of ischemia 2. - Normal LVEF
--- NOTE | 2017-11-01 17:20 | CP.PCM.DIS ---
Provider - Provider Date of Admission: 10/31/17 14:19 Attending physician: Jesus Rodriguez MD Hospital Course - Lab Results Lab Results: Most Recent Lab Values WBC 5.8 K/uL (4.8-10.8) 11/01/17 06:34 RBC 4.52 Mil/uL (4.40-5.90) 11/01/17 06:34 Hgb 13.7 g/dL (12.0-18.0) 11/01/17 06:34 Hct 40.2 % (35.0-51.0) 11/01/17 06:34 MCV 89.0 fL (80.0-94.0) 11/01/17 06:34 MCH 30.3 pg (27.0-31.0) 11/01/17 06:34 MCHC 34.0 g/dL (33.0-37.0) 11/01/17 06:34 RDW 15.9 % (11.5-14.5) H 11/01/17 06:34 Plt Count 37 K/uL (130-400) L 11/01/17 06:34 MPV 9.3 fL (7.2-11.7) 11/01/17 06:34 Neut % (Auto) 50.6 % (50.0-75.0) 11/01/17 06:34 Lymph % (Auto) 42.0 % (20.0-40.0) H 11/01/17 06:34 Wilkinson % (Auto) 4.9 % (0.0-10.0) 11/01/17 06:34 Eos % (Auto) 1.9 % (0.0-4.0) 11/01/17 06:34 Baso % (Auto) 0.6 % (0.0-2.0) 11/01/17 06:34 Neut # (Auto) 2.9 K/uL (1.8-7.0) 11/01/17 06:34 Lymph # (Auto) 2.4 K/uL (1.0-4.3) 11/01/17 06:34 Wilkinson # (Auto) 0.3 K/uL (0.0-0.8) 11/01/17 06:34 Eos # (Auto) 0.1 K/uL (0.0-0.7) 11/01/17 06:34 Baso # (Auto) 0.0 K/uL (0.0-0.2) 11/01/17 06:34 Differential Comment 10/30/17 07:54 PT 11.0 SECONDS (9.7-12.2) 11/01/17 06:34 INR 1.0 11/01/17 06:34 APTT 31 SECONDS (21-34) 10/29/17 16:40 Sodium 136 mmol/L (132-148) 11/01/17 06:34 Potassium 3.7 mmol/L (3.6-5.2) 11/01/17 06:34 Chloride 96 mmol/L (98-107) L 11/01/17 06:34 Carbon Dioxide 27 mmol/L (22-30) 11/01/17 06:34 Anion Gap 17 (10-20) 11/01/17 06:34 BUN 13 mg/dL (9-20) 11/01/17 06:34 Creatinine 0.7 mg/dL (0.8-1.5) L 11/01/17 06:34 Est GFR ( Amer) > 60 11/01/17 06:34 Est GFR (Non-Af Amer) > 60 11/01/17 06:34 Random Glucose 114 mg/dL (75-110) H 11/01/17 06:34 Hemoglobin A1c 4.8 % (4.2-6.5) 10/31/17 11:38 Calcium 10.1 mg/dl (8.6-10.4) 11/01/17 06:34 Phosphorus 3.6 mg/dL (2.5-4.5) 11/01/17 06:34 Magnesium 1.8 mg/dL (1.6-2.3) 11/01/17 06:34 Total Bilirubin 1.4 mg/dL (0.2-1.3) H 11/01/17 06:34 AST 68 U/L (17-59) H 11/01/17 06:34 ALT 65 U/L (21-72) 11/01/17 06:34 Alkaline Phosphatase 84 U/L (38-126) 11/01/17 06:34 Total Creatine Kinase 171 U/L (55-170) H 10/30/17 10:15 CK-MB (Mass) 0.76 ng/mL (0.0-3.38) 10/30/17 10:15 Troponin I < 0.0120 ng/mL (0.00-0.120) 10/30/17 10:15 Total Protein 9.1 g/dL (6.3-8.3) H 11/01/17 06:34 Albumin 4.7 g/dL (3.5-5.0) 11/01/17 06:34 Globulin 4.4 gm/dL (2.2-3.9) H 11/01/17 06:34 Albumin/Globulin Ratio 1.1 (1.0-2.1) 11/01/17 06:34 Triglycerides 123 mg/dL (0-149) D 10/30/17 07:54 Cholesterol 190 mg/dL (0-199) 10/30/17 07:54 LDL Cholesterol Direct 88 mg/dL (0-129) 10/30/17 07:54 HDL Cholesterol 79 mg/dL (30-70) H 10/30/17 07:54 TSH 3rd Generation 3.87 mIU/L (0.46-4.68) 10/31/17 11:38 Urine Color Syeda (YELLOW) 10/29/17 18:45 Urine Clarity Clear (Clear) 10/29/17 18:45 Urine pH 6.0 (5.0-8.0) 10/29/17 18:45 Ur Specific [place] 1.024 (1.003-1.030) 10/29/17 18:45 Urine Protein 1+ mg/dL (NEGATIVE) H 10/29/17 18:45 Urine Glucose (UA) Normal mg/dL (Normal) 10/29/17 18:45 Urine Ketones 1+ mg/dL (NEGATIVE) H 10/29/17 18:45 Urine Blood Negative (NEGATIVE) 10/29/17 18:45 Urine Nitrate Negative (NEGATIVE) 10/29/17 18:45 Urine Bilirubin Negative (NEGATIVE) 10/29/17 18:45 Urine Urobilinogen 4.0 mg/dL (0.2-1.0) 10/29/17 18:45 Ur Leukocyte Esterase Neg Jean Paul/uL (Negative) 10/29/17 18:45 Urine WBC (Auto) 1 /hpf (0-5) 10/29/17 18:45 Urine RBC (Auto) 1 /hpf (0-3) 10/29/17 18:45 Ur Squamous Epith Cells 1 /hpf (0-5) 10/29/17 18:45 Urine Opiates Screen Negative (NEGATIVE) 10/29/17 18:45 Urine Methadone Screen Negative (NEGATIVE) 10/29/17 18:45 Ur Barbiturates Screen Negative (NEGATIVE) 10/29/17 18:45 Ur Phencyclidine Scrn Negative (NEGATIVE) 10/29/17 18:45 Ur Amphetamines Screen Negative (NEGATIVE) 10/29/17 18:45 U Benzodiazepines Scrn Negative (NEGATIVE) 10/29/17 18:45 U Oth Cocaine Metabols Negative (NEGATIVE) 10/29/17 18:45 U Cannabinoids Screen Negative (NEGATIVE) 10/29/17 18:45 Alcohol, Quantitative 41 mg/dl (0-10) H 10/29/17 16:40 Hepatitis A IgM Ab Negative (NEGATIVE) 10/30/17 19:33 Hep Bs Antigen Negative (NEGATIVE) 10/30/17 19:33 Hep B Core IgM Ab Negative (NEGATIVE) 10/30/17 19:33 Hepatitis C Antibody Negative (NEGATIVE) 10/30/17 19:33 Discharge Exam - Head Exam Head Exam: NORMAL INSPECTION Discharge Plan - Follow Up Plan Condition: FAIR Disposition: HOME/ ROUTINE
--- NOTE | 2017-11-01 19:06 | CP.PCM.PN ---
Subjective - Date & Time of Evaluation Date of Evaluation: 11/01/17 Time of Evaluation: 07:00 - Subjective Subjective: Medicine Progress Note: Patient was seen and examined at bedside in the AM. Patient denies withdrawal symptoms, tremors, dizziness, headache, palpitations, shortness of breath or chest pain. Patient states he would like to be transferred to the psychiatry unit. Objective - Vital Signs/Intake and Output Vital Signs (last 24 hours): Temp Pulse Resp BP Pulse Ox 98.2 F 97 H 20 110/79 98 11/01/17 15:00 11/01/17 16:00 11/01/17 15:00 11/01/17 17:11 11/01/17 15:00 Intake and Output: 11/01/17 11/01/17 06:59 18:59 Intake Total 480 Balance 480 - Medications Medications: Current Medications Aspirin (Aspirin Chewable) 81 mg PO DAILY [facility] Last Admin: 11/01/17 12:00 Dose: 81 mg Folic Acid (Folic Acid) 1 mg PO DAILY [facility] Last Admin: 11/01/17 10:00 Dose: 1 mg Lorazepam (Ativan) 1 mg IVP Q8H PRN; Taper PRN Reason: Anxiety Stop: 11/03/17 20:43 Last Admin: 11/01/17 13:51 Dose: 1 mg Metoprolol Tartrate (Lopressor) 25 mg PO BIDBS [facility] Last Admin: 11/01/17 17:11 Dose: 25 mg Multivitamins (Hexavitamin) 1 tab PO DAILY [facility] Pantoprazole Sodium (Protonix Inj) 40 mg IVP Q12H [facility] Last Admin: 11/01/17 13:50 Dose: 40 mg Quetiapine Fumarate (Seroquel) 150 mg PO HS [facility] Last Admin: 10/31/17 23:16 Dose: 150 mg Rosuvastatin Calcium (Crestor) 10 mg PO HS [facility] Last Admin: 10/31/17 21:31 Dose: 10 mg Thiamine HCl (Vitamin B1 Tab) 100 mg PO DAILY [facility] Last Admin: 11/01/17 10:00 Dose: 100 mg Trazodone HCl (Desyrel) 100 mg PO HS [facility] Last Admin: 10/31/17 21:30 Dose: 100 mg - Labs Labs: 11/01/17 06:34 11/01/17 06:34 PT 11.0 SECONDS (9.7-12.2) 11/01/17 06:34 INR 1.0 11/01/17 06:34 APTT 31 SECONDS (21-34) 10/29/17 16:40 - Constitutional Appears: No Acute Distress - Head Exam Head Exam: NORMAL INSPECTION, NORMOCEPHALIC - Eye Exam Eye Exam: EOMI, Normal appearance - ENT Exam ENT Exam: Mucous Membranes Moist - Respiratory Exam Respiratory Exam: Clear to Ausculation Bilateral, NORMAL BREATHING PATTERN - Cardiovascular Exam Cardiovascular Exam: REGULAR RHYTHM, +S1, +S2 - GI/Abdominal Exam GI & Abdominal Exam: Soft, Normal Bowel Sounds. absent: Tenderness - Extremities Exam Extremities Exam: Normal Inspection - Neurological Exam Neurological Exam: Alert, Awake, Oriented x3 - Psychiatric Exam Psychiatric exam: Normal Affect, Normal Mood - Skin Skin Exam: Normal Color, Warm Assessment and Plan - Assessment and Plan (Free Text) Assessment: 1.) Chest pain - Troponin x3 Negative - EKG showed T-wave abnormalities on anteroseptal leads - ASCVD 10-yr risk 6.1% - ECHO: Left ventricular function is normal; the left ventricular ejection fraction is within the normal range. No regional wall motion abnormalities noted. The aortic valve is normal in structure and function. Mitral regurgitation is mild - Chest X-ray: No active disease - Aspirin 80mg po daily - Lopressor 25mg PO BIDBS - Crestor 10mg PO HS - Dr. Bhagat, cardiology consulted, help appreciated - per Resident Dr. Dumont: stress test was normal - Lipid Panel: Cholesterol 190; LDL 88; HDL 79; Triglycerides 123 2.) Alcohol abuse - Patient with hx of alcohol use disorder - Psychiatry consult, Dr Ferro - help appreciated: for psych transfer once medically stable - Alcohol, Quantitative: 41 - drug screen - negative - Medications: * Banana bag @100cc/hr * Folic acid 1mg PO QD * Multivitamin 1 tab PO QD * Thiamine 100mg PO QD * Ativan 1mg PO q6h PRN 3.) Hypokalemia - resolved - K 3.7 - Mg - 1.8 4.) Elevated LFTs - Likely secondary to alcohol abuse - On admission: AST 197, ALT 92 - Continue to monitor - hepatitis panel: negative 5.) History of paranoia and bipolar - Psychiatry consult, Dr Ferro - for psych transfer once medically stable - Continue home Seroquel 150mg PO HS - Continue home Trazodone 100mg PO HS 6.) Thrombocytopenia - Likely secondary to alcohol abuse - On admission: platelet count 59, today 37 - Monitor for signs of bleeding - Continue to monitor 7.) Prophylactic measure - DVT anticoagulation contraindicated due to low platelet count - Protonix 40mg q12h - Heart healthy diet Disposition: Patient is medically stable to be transferred to the Psych Unit. Please reconsult if necessary Case discussed with Dr. Michael Schultz PGY-1
--- NOTE | 2017-11-01 19:35 | PCM.BM ---
<Zabrina Ramírez - Last Filed: 11/01/17 19:32> Treatment Plan Problems - Problems identified on initial assessmt Alcohol Abuse Date Initiated: 11/01/17 Time Initiated: 19:33 Assessment reference: NA Status: Active Treatment assets and liabiliti Patient Assests: cooperative, ADL independent, negotiates basic needs, cognitively intact Patient Liabilities: live alone, financial problems, substance abuse (ETOH), medical problems (Hx of seizure and HTN) - Milieu Protocol Maintain good personal hygiene: daily Encourage regular showers, daily Remind patient to perform daily oral care, daily Assist patient to perform ADL's (Self) , other Assist patient to perform ADL's Conduct patient checks and document Observation sheet: Q15 minutes (For safety) Maintain personal safety: every shift Educate patient to report safety concerns to staff, every shift Monitor environment for contraband/sharps Medication safety: Monitor for expected outcome, potential side effects: every shift, Assess barriers to learning: every shift, Assess readiness for medication education: every shift Milieu Narrative: Alcohol use disorder severe Alcohol withdrawal Ativan taper Bipolar disorder mixed severe with psychotic features Start Seroquel 150 mg by mouth daily Trazodone 100 mg by mouth daily at bedtime Patient will be admitted at 5 E. after medical clearance Discharge/Continuing Care - Treatment Team Participation Patient/Family/SO Statement: Alcohol use disorder severe Alcohol withdrawal Ativan taper Bipolar disorder mixed severe with psychotic features Start Seroquel 150 mg by mouth daily Trazodone 100 mg by mouth daily at bedtime Patient will be admitted at 5 E. after medical clearance <Cayla Sanchez - Last Filed: 11/03/17 10:35> Family Contact Family involvement: Famliy/SO not involved - Goals for Treatment Patient goals for treatment: "I want to go home." Discharge/Continuing Care - Education Needs Education Needs: Patient Medication, Patient Coping Skills - Discharge Discharge Criteria: Tolerates medication w/o severe side effects, Reduction of target symptoms Discharge to:: Home - Treatment Team Participation Discussed with Family/SO: No Was Patient/Family/SO present at Treatment Team Meeting: Yes
[2017-11-02 06:17] VITALS: O2SAT 95
[2017-11-02] MEDS: Pantoprazole 40 mg EC Tab PO SCH (10:11)
[2017-11-02] MEDS: Multiple Vitamins Tab PO SCH (10:12)
[2017-11-03 06:51] VITALS: PULSE 84; RESP 18; TEMP 98.4
[2017-11-03 08:48] VITALS: BP 106/75
[2017-11-03] MEDS: Multiple Vitamins Tab PO SCH (09:33)
[2017-11-03] MEDS: Pantoprazole 40 mg EC Tab PO SCH (09:33)
--- NOTE | 2017-11-03 10:31 | PCM.PYCHDC ---
Mental Status Examination - Mental Status Examination Orientation: Person, Place, Situation, Time Memory: Intact Mood: Neutral Affect: Constricted Speech: Soft Attention: WNL Concentration: WNL Association: WNL Fund of Knowledge: WNL Formal Thought Process: No Impairment Description of patient's judgement and insight: good, fair Psychotic Thoughts and Behaviors: denies any AVH Suicidal Ideation: No Current Homicidal Ideation?: No Discharge Summary - Discharge Note Consultations:: List each consultation separately and include: 1. Reason for request. 2. Findings. 3. Follow-up Summary of Hospital Course include:: 1. Description of specific treatment plan utilized for patients during their course of treatmen. 2. Summarize the time- course for resolution of acute symptoms and/or regressed behaviors. 3. Describe issues identified and worked on during hospitalization. 4. Describe medication utilized. 5. Describe medical problems identified and treated. 6. Reassessment of suicide risk - Final Diagnosis (DSM 5) Condition upon Discharge: FAIR Disposition: HOME/ ROUTINE Follow-up Treatment Plan: Alcohol use disorder severe Alcohol withdrawal Ativan taper Bipolar disorder mixed severe with psychotic features Start Seroquel 150 mg by mouth daily Trazodone 100 mg by mouth daily at bedtime Patient will be admitted at 5 E. after medical clearance Prescriptions/Medication Reconciliation: Aspirin [Aspirin Chewable] 81 mg PO DAILY #30 chew QUEtiapine [SEROquel] 200 mg PO HS #30 tab Sertraline [Zoloft] 50 mg PO DAILY #30 tab
--- NOTE | 2017-11-03 14:17 | CARD ---
APPROVED REPORT EKG Measurement Heart [id number] [place] 160P35 [id number] <Conclusion> Normal sinus rhythm T wave abnormality, consider anterior ischemia Prolonged QT Abnormal ECG
--- NOTE | 2017-11-03 22:33 | CARD ---
APPROVED REPORT EKG Measurement Heart [id number] [place] 144P35 [id number] <Conclusion> Normal sinus rhythm with sinus arrhythmia Normal ECG
== END 2017-11-03 13:00 | disposition home or self-care (01) | DRG 885 ==
LOC: C.ER 15:32 → C.9E 18:29 → C.6T 19:01 → OBSVTOIN 10-31 14:19 → C.5E 11-01 17:17
PROVIDERS: ADMIT Psychiatry & Neurology Psychiatry; ATTEND Psychiatry & Neurology Psychiatry
PROC: HZ2ZZZZ Detoxification Services for Substance Abuse Treatment (ICD-10-PCS; principal; 2017-10-31)
DX: F31.64 Bipolar disorder, current episode mixed, severe, with psychotic features (principal); D69.59 Other secondary thrombocytopenia; F10.230 Alcohol dependence with withdrawal, uncomplicated; I10 Essential (primary) hypertension; Z72.0 Tobacco use; F10.220 Alcohol dependence with intoxication, uncomplicated; Y90.2 Blood alcohol level of 40-59 mg/100 ml

== ENCOUNTER 2018-01-27 16:41 | Inpatient (IN) | payer OTHER ==
[2018-01-27 16:42] VITALS: BMI 28.3
[2018-01-27 17:29] LABS: BASO # 0.1 K/uL (0.0-0.2); BASO % 0.8 % (0.0-2.0); EOS % 0.1 % (0.0-4.0); HEMOGLOBIN 12.7 g/dL (12.0-18.0); LYMPH # 1.4 K/uL (1.0-4.3); MEAN CORPUSCULAR HEMOGLOBIN 30.9 pg (27.0-31.0); MEAN CORPUSCULAR HGB CONC 33.7 g/dL (33.0-37.0); MEAN PLATELET VOLUME 7.2 fL (7.2-11.7); MONO # 0.3 K/uL (0.0-0.8); MONO % 4.5 % (0.0-10.0); NEUT # 5.5 K/uL (1.8-7.0); NEUT % 75.6 % (50.0-75.0); RBC 4.13 Mil/uL (4.40-5.90); RED CELL DISTRIBUTION WIDTH 17.2 % (11.5-14.5); WHITE BLOOD COUNT 7.3 K/uL (4.8-10.8)
[2018-01-27 17:39] LABS: ALB/GLOB RATIO 1.2 (1.0-2.1); ALBUMIN 4.6 g/dL (3.5-5.0); ALT/SGPT 62 U/L (21-72); AST/SGOT 114 U/L (17-59); BLOOD UREA NITROGEN 24 mg/dL (9-20); CALCIUM 8.1 mg/dl (8.6-10.4); GFR AFRICAN-AMERICAN > 60; GFR NON-AFRICAN AMERICAN > 60
[2018-01-27 17:41] LABS: MEAN CELL VOLUME 91.5 fL (80.0-94.0)
--- NOTE | 2018-01-27 17:47 | CT ---
PROCEDURE: CT HEAD WITHOUT CONTRAST. HISTORY: hit head s/p fall COMPARISON: 07/22/2026. TECHNIQUE: Axial computed tomography images were obtained through the head/brain without intravenous contrast. Radiation dose: Total exam DLP = 879.86 mGy-cm. This CT exam was performed using one or more of the following dose reduction techniques: Automated exposure control, adjustment of the mA and/or kV according to patient size, and/or use of iterative reconstruction technique. FINDINGS: HEMORRHAGE: No intracranial hemorrhage. BRAIN: Ashley-white matter differentiation is preserved. There is no mass, mass effect or abnormal extra-axial fluid collection. There is no territorial infarction. VENTRICLES: There is mild age advanced global parenchymal volume loss and proportionate enlargement of the ventricles and cortical sulci. CALVARIUM: There is no calvarial fracture. There is a small right frontal scalp hematoma. PARANASAL SINUSES: Predominantly clear. MASTOID AIR CELLS: Predominantly clear. OTHER FINDINGS: None. IMPRESSION: No acute intracranial abnormality. Small right frontal scalp hematoma.
[2018-01-27 17:52] LABS: ACETAMINOPHEN < 10.0 ug/mL (10.0-30.0); SALICYLATE < 1.0 mg/dL 1
--- NOTE | 2018-01-27 17:52 | CT ---
PROCEDURE: CT MAXILLOFACIAL BONES WITHOUT CONTRAST HISTORY: Facial/chin injury s/p fall COMPARISON: None TECHNIQUE: Contiguous axial CT images of the maxillofacial bones were obtained. Coronal and sagittal reformats were generated. Radiation dose: Total exam DLP = 825.09 mGy-cm. This CT exam was performed using one or more of the following dose reduction techniques: Automated exposure control, adjustment of the mA and/or kV according to patient size, and/or use of iterative reconstruction technique. FINDINGS: NASAL BONES: The nasal bones are intact. ORBITS: No acute fracture. The globes are symmetric. No evidence of intraorbital or retro-orbital hematoma. PARANASAL SINUSES/ MASTOIDS: There is mild mucosal thickening in the right maxillary sinus. The remaining included paranasal sinuses are predominantly clear. MAXILLA: No acute maxillofacial fracture. MANDIBLE/ TEMPOROMANDIBULAR JOINTS: No acute fracture or dislocation. SKULL BASE: Unremarkable. TEMPORAL BONES: Middle ears and mastoid grossly unremarkable. OTHER FINDINGS: There is soft tissue swelling and small hematoma overlying the mandible. IMPRESSION: No acute nasal bone, orbital or maxillofacial fracture. Soft tissue swelling and small soft tissue hematoma overlying the mandible.
[2018-01-27] MEDS ORDERED: Sodium Chloride 0.9% 1,000 ML IV STA ×2 (17:56→20:00)
--- NOTE | 2018-01-27 18:04 | CT ---
PROCEDURE: CT Cervical Spine without contrast HISTORY: Head injury, ETOH. COMPARISON: None available. TECHNIQUE: Axial computed tomography images were obtained of the cervical spine without the use of intravenous contrast. Coronal and sagittal reformatted images were created and reviewed. 3D volume rendering images obtained Radiation dose: Total exam DLP = 2442.04 mGy-cm. This CT exam was performed using one or more of the following dose reduction techniques: Automated exposure control, adjustment of the mA and/or kV according to patient size, and/or use of iterative reconstruction technique. FINDINGS: VERTEBRAE: No fracture. Normal alignment. No destructive bony lesion. DISCS/SPINAL CANAL/NEURAL FORAMINA: No significant central canal or neural foraminal stenosis. Discs heights are grossly preserved. PARASPINAL SOFT TISSUES: Unremarkable. OTHER FINDINGS: None. IMPRESSION: Unremarkable CT of the cervical spine.
[2018-01-27] MEDS ORDERED: Sodium Chloride 0.9% 1,000 ML ONE ×2 (18:30→20:05)
[2018-01-27 18:34] LABS: ABG ALLEN TEST OS; ARTERIAL BLOOD GAS O2 SAT 97.9 % (95-98); ARTERIAL BLOOD GAS PCO2 21 mm/Hg (35-45); ARTERIAL BLOOD GAS PH 7.27 (7.35-7.45); ARTERIAL BLOOD GAS PO2 94 mm/Hg (80-100); ARTERIAL BLOOD GAS TCO2 10.2 mmol/L (22-28)
[2018-01-27 21:29] LABS: SQUAMOUS EPITHIAL < 1 /hpf (0-5); URINE BACTERIA RARE (<OCC); URINE BILIRUBIN NEGATIVE (NEGATIVE); URINE CLARITY Clear (Clear); URINE COLOR Yellow (YELLOW); URINE GLUCOSE (UA) NORMAL (Normal); URINE LEUKOCYTE ESTERASE NEG Leu/uL (Negative); URINE PROTEIN NEGATIVE (NEGATIVE); URINE UROBILINOGEN NORMAL mg/dL (0.2-1.0)
[2018-01-27 21:31] LABS: URINE BLOOD TRACE (NEGATIVE)
[2018-01-27 21:41] LABS: BARBITURATES, UR NEGATIVE (NEGATIVE); BENZODIAZEPINES, UR NEGATIVE (NEGATIVE); OPIATES, UR NEGATIVE (NEGATIVE); PHENCYCLIDINE, UR NEGATIVE (NEGATIVE)
[2018-01-27 21:56] LABS: VENOUS BLOOD GAS BASE EXCESS -10.1 mmol/L (0.0-2.0); VENOUS BLOOD GAS PCO2 27 mmHg (40-60); VENOUS BLOOD GAS PO2 24 mm/Hg (30-55); VENOUS BLOOD PH 7.33 (7.32-7.43)
[2018-01-27 22:17] LABS: ALB/GLOB RATIO 1.2 (1.0-2.1); ALBUMIN 3.9 g/dL (3.5-5.0); ALT/SGPT 57 U/L (21-72); AST/SGOT 99 U/L (17-59); BLOOD UREA NITROGEN 18 mg/dL (9-20); CALCIUM 7.1 mg/dl (8.6-10.4); GFR AFRICAN-AMERICAN > 60; GFR NON-AFRICAN AMERICAN > 60
--- NOTE | 2018-01-27 22:50 | C.PDOC ---
Time Seen by Provider: 01/27/18 16:59 Chief Complaint (Nursing): Psychiatric Evaluation History Per: Patient, EMS History/Exam Limitations: intoxication Onset/Duration Of Symptoms: Unknown Current Symptoms Are (Timing): Still Present Suicide/Self Injury Attempted (Context): Ingestion Ingestion Of Substance: Trazodone 50mg x 6 tabs Modifying Factor(s): Alcohol Severity: Moderate Associated Symptoms: Suicidal Thoughts Additional History Per: Prior Records Past Medical History Reviewed: Historical Data, Nursing Documentation, Vital Signs Vital Signs: Last Vital Signs Temp 98.8 F 01/27/18 16:52 Pulse 75 01/27/18 22:14 Resp 18 01/27/18 22:14 BP 138/80 01/27/18 22:14 Pulse Ox 100 01/27/18 22:14 - Medical History PMH: Bipolar Disorder, Fractures (left wrist 4 days ago cast intact), HTN, Paranoia, Seizures Other PMH: Alcohol abuse Surgical History: Hernia Repair - [facility] FOR SUBSTANCE ABUSE TREATMENT (10/31/17) Family History: States: Unknown Family Hx - Social History Hx Alcohol Use: Yes Hx Substance Use: No - Immunization History Hx Tetanus Toxoid Vaccination: No Hx Influenza Vaccination: No Hx Pneumococcal Vaccination: No Review Of Systems Constitutional: Negative for: Fever Cardiovascular: Negative for: Chest Pain Respiratory: Negative for: Shortness of Breath Gastrointestinal: Negative for: Vomiting, Abdominal Pain Neurological: Negative for: Weakness Physical Exam - Physical Exam Appears: Unkempt, Other (AOB) Skin: Warm, Dry Head: Other (contusions) Eye(s): bilateral: PERRL, EOMI Neck: Normal ROM, Midline Cervical Tenderness, No Step Off Deformity, Supple Chest: Symmetrical Cardiovascular: Rhythm Regular Respiratory: Normal Breath Sounds, No Accessory Muscle Use Gastrointestinal/Abdominal: Soft, No Tenderness Extremity: Normal ROM, No Deformity Neurological/Psych: Oriented x3, Normal Motor, Other (tremulous) ED Course And Treatment - Laboratory Results Result Diagrams: 01/27/18 17:16 01/27/18 21:55 Lab Interpretation: Abnormal Interpretation Of Abnormal: Anion gap acidosis ECG: Interpreted By Me, Viewed By Me ECG Rhythm: Sinus Rhythm, Nonspecific Changes ECG Interpretation: No Acute Changes Rate From EC O2 Sat by Pulse Oximetry: 100 Pulse Ox Interpretation: Normal - CT Scan/US Head CT Other Rad Studies (CT/US): Read By Radiologist, Radiology Report Reviewed CT/US Interpretation: IMPRESSION: No acute intracranial abnormality. Small right frontal scalp hematoma. CT Facial bones Other Rad Studies (CT/US): Read By Radiologist, Radiology Report Reviewed CT/US Interpretation: IMPRESSION: No acute nasal bone, orbital or maxillofacial fracture. Soft tissue swelling and small soft tissue hematoma overlying the mandible. CT C-spine Other Rad Studies (CT/US): Read By Radiologist, Radiology Report Reviewed CT/US Interpretation: IMPRESSION: Unremarkable CT of the cervical spine. Progress Note: Pt d/w Lis at [facility]. She recommeded IV hydration and repeating labs. Reassessment Condition: Improved - Physician Consult Information Physician Contacted: Mary Mesa (Psych) Outcome Of Conversation: She states that she will not accept him on psychiatric unit, but she will provide psychiatric consultation on the medical floor. Progress - Interventions Interventions:: Observation, Intravenous fluid - Medications Administered Intravenous: Other (Ativan) - Data Reviewed Data Reviewed: Lab, EKG, Old records - Patient Status Patient status: Partially improved - Critical Care Citical Care: Excluding Proc Time Critical Care Time: 75 minutes - Continuity of Care Discussed patient case with:: Patient, ED Nurse, On-call PMD-pt unassigned Discussed pt. case with educational consultant/specialty: Psychiatry - Patient Plan Patient Plan: Admission, Telemetry Disposition Discussed With : Caesar Gotltieb Comment: He accepted pt on hospitalist service. Doctor Will See Patient In The: Hospital Counseled Patient/Family Regarding: Studies Performed, Diagnosis - Disposition Disposition: HOSPITALIZED Disposition Time: 22:56 Condition: SERIOUS - Clinical Impression Clinical Impression: High anion gap metabolic acidosis, Alcohol withdrawal, Suicidal ideations, Overdose of medication
[2018-01-27] MEDS ORDERED: Sodium Chloride 0.9% 1,000 ML IV SCH (23:00)
[2018-01-27] MEDS ORDERED: Thiamine 100 mg/ml Inj IV STA (23:07)
--- NOTE | 2018-01-27 23:27 | CP.PCM.HP ---
<Shawn Lr - Last Filed: 01/27/18 23:57> History of Present Illness - History of Present Illness History of Present Illness: CC: voices telling him to kill himself, and chest pain This patient is a 51 yo M w/ a PMhx of EtOH abuse/dependence, schizophrenia, who is coming into the hospital after he was found intoxicated in the street. Patient states he fell earlier today when he was intoxicated, hit his head, but did not lose consciousness. He is also stating he is hearing voices that are telling him to kill himself. He has no concrete plan to hurt himself currently. Denies homocidal ideation. States he drinks 1pt of vodka every day, last drink was 18 hours ago. He denies other illicit drug use. He denies fevers/chills, HIGGINS , changes in vision, abdominal pain, SOB, N/V/D, dysuria/freq/urg or lower extremity pain/swelling. He is unable to describe his chest pain. Points to the middle of his chest. States it is not associated with any other symptoms such as diaphoresis, nausea/ vomiting, or feelings of doom. States he has had it for the past month, and rates it as a 3/10 in pain unable to describe it without any alleviating factors. PMhx: EtOH abuse/dependence, paranoid schizophrenia, states he has HTN Meds: Seroquel, Risperdal, Trazodone Surgeries: hernia repair Allergies: Denies FamHx: HTN Social: states he lives in in apartment but appears unkempt; states psychiatrist is in [place] but cannot remember name, states he is independent in IADL and ADL, denies smoking, 1 pint of vodka daily for 20 years. Present on Admission - Present on Admission Any Indicators Present on Admission: Yes History of DVT/PE: No History of Uncontrolled Diabetes: No Urinary Catheter: No Decubitus Ulcer Present: No Past Patient History - Infectious Disease Hx of Infectious Diseases: None - Past Medical History & Family History Past Medical History?: Yes - Past Social History Smoking Status: Former Smoker - CARDIAC Hx Hypertension: Yes - PULMONARY Hx Respiratory Disorders: No - NEUROLOGICAL Hx Seizures: Yes - HEENT Hx HEENT Problems: No - ENDOCRINE/METABOLIC Hx Endocrine Disorders: No - HEMATOLOGICAL/ONCOLOGICAL Hx Blood Disorders: No - INTEGUMENTARY Hx Dermatological Problems: No - MUSCULOSKELETAL/RHEUMATOLOGICAL Hx Fractures: Yes (left wrist 4 days ago cast intact) - GASTROINTESTINAL Hx Gastrointestinal Disorders: No - GENITOURINARY/GYNECOLOGICAL Hx Genitourinary Disorders: No - PSYCHIATRIC Hx Bipolar Disorder: Yes Hx Paranoia: Yes Hx Substance Use: No - SURGICAL HISTORY Hx Surgeries: Yes Hx Herniorrhaphy: Yes (left) - ANESTHESIA Hx Anesthesia: Yes Hx Anesthesia Reactions: No Meds Allergies/Adverse Reactions: Allergies Allergy/AdvReac Type Severity Reaction Status Date / Time No Known Allergies Allergy Verified 10/29/17 15:48 Physical Exam - Constitutional Appears: Chronically Ill (extremely unkempt; face with bruises/hematoma on face) - Head Exam Head Exam: absent: ATRAUMATIC - Eye Exam Eye Exam: EOMI, Normal appearance. absent: Scleral icterus - ENT Exam ENT Exam: Mucous Membranes Dry - Neck Exam Neck exam: Negative for: Lymphadenopathy, Meningismus, Thyromegaly - Respiratory Exam Respiratory Exam: Clear to Auscultation Bilateral, NORMAL BREATHING PATTERN. absent: Rales, Rhonchi, Wheezes - Cardiovascular Exam Cardiovascular Exam: REGULAR RHYTHM, +S1, +S2. absent: Tachycardia - GI/Abdominal Exam GI & Abdominal Exam: Normal Bowel Sounds, Soft. absent: Organomegaly, Pulsatile Mass, Rebound, Rigid, Tenderness - Extremities Exam Extremities exam: Positive for: full ROM, normal inspection. Negative for: calf tenderness, pedal edema - Back Exam Back exam: NORMAL INSPECTION. absent: CVA tenderness (L), CVA tenderness (R) - Neurological Exam Neurological exam: Alert, CN II-XII Intact, Oriented x3 - Psychiatric Exam Psychiatric exam: Depressed, Suicidal Ideation - Skin Skin Exam: Warm Results - Vital Signs Recent Vital Signs: Last Vital Signs Temp 98.8 F 01/27/18 16:52 Pulse 75 01/27/18 22:14 Resp 18 01/27/18 22:14 BP 138/80 01/27/18 22:14 Pulse Ox 100 01/27/18 22:59 - Labs Result Diagrams: 01/27/18 17:16 01/27/18 21:55 Labs: Laboratory Results - last 24 hr 01/27/18 01/27/18 01/27/18 17:16 17:16 17:16 WBC 7.3 RBC 4.13 L Hgb 12.7 Hct 37.8 MCV 91.5 D MCH 30.9 MCHC 33.7 RDW 17.2 H Plt Count 60 L D MPV 7.2 Neut % (Auto) 75.6 H Lymph % (Auto) 19.0 L [place] % (Auto) 4.5 Eos % (Auto) 0.1 Baso % (Auto) 0.8 Neut # (Auto) 5.5 Lymph # (Auto) 1.4 [place] # (Auto) 0.3 Eos # (Auto) 0.0 Baso # (Auto) 0.1 Puncture Site pCO2 pO2 HCO3 ABG pH ABG Total CO2 ABG O2 Saturation ABG Base Excess Star Test ABG Potassium VBG pH VBG pCO2 VBG HCO3 VBG Total CO2 VBG O2 Sat (Calc) VBG Base Excess VBG Potassium A-a O2 Difference Respiratory Index Glucose Lactate FiO2 Crit Value Called To Crit Value Called By Crit Value Read Back Blood Gas Notified Time Sodium 136 Potassium 4.0 Chloride 95 L Carbon Dioxide 8 L* D Anion Gap 37 H BUN 24 H Creatinine 1.0 Est GFR ( Amer) > 60 Est GFR (Non-Af Amer) > 60 Random Glucose 66 L Serum Osmolality Calcium 8.1 L Magnesium 2.1 Total Bilirubin 1.6 H AST 114 H D ALT 62 Alkaline Phosphatase 86 Total Protein 8.3 Albumin 4.6 Globulin 3.7 Albumin/Globulin Ratio 1.2 Arterial Blood Potassium Venous Blood Potassium Urine Color Urine Clarity Urine pH Ur Specific [place] Urine Protein Urine Glucose (UA) Urine Ketones Urine Blood Urine Nitrate Urine Bilirubin Urine Urobilinogen Ur Leukocyte Esterase Urine WBC (Auto) Urine RBC (Auto) Ur Squamous Epith Cells Urine Bacteria Salicylates < 1.0 Urine Opiates Screen Urine Methadone Screen Acetaminophen < 10.0 L Ur Barbiturates Screen Ur Phencyclidine Scrn Ur Amphetamines Screen U Benzodiazepines Scrn U Oth Cocaine Metabols U Cannabinoids Screen Alcohol, Quantitative 194 H Serum Ketones 01/27/18 01/27/18 01/27/18 18:00 18:25 18:44 WBC RBC Hgb Hct MCV MCH MCHC RDW Plt Count MPV Neut % (Auto) Lymph % (Auto) [place] % (Auto) Eos % (Auto) Baso % (Auto) Neut # (Auto) Lymph # (Auto) [place] # (Auto) Eos # (Auto) Baso # (Auto) Puncture Site Rradial pCO2 21 L pO2 94 HCO3 13.0 L ABG pH 7.27 L ABG Total CO2 10.2 L ABG O2 Saturation 97.9 ABG Base Excess -15.2 L Star Test Os ABG Potassium 3.7 VBG pH VBG pCO2 VBG HCO3 VBG Total CO2 VBG O2 Sat (Calc) VBG Base Excess VBG Potassium A-a O2 Difference 29.0 Respiratory Index 0.3 Glucose 75 Lactate 4.8 H* FiO2 21.0 Crit Value Called To Crit Value Called By Iliana vila rcp Crit Value Read Back Y Blood Gas Notified Time 183 Sodium 135.0 Potassium Chloride 96.0 L Carbon Dioxide Anion Gap BUN Creatinine Est GFR ( Amer) Est GFR (Non-Af Amer) Random Glucose Serum Osmolality 348 H Calcium Magnesium Total Bilirubin AST ALT Alkaline Phosphatase Total Protein Albumin Globulin Albumin/Globulin Ratio Arterial Blood Potassium 3.7 Venous Blood Potassium Urine Color Urine Clarity Urine pH Ur Specific [place] Urine Protein Urine Glucose (UA) Urine Ketones Urine Blood Urine Nitrate Urine Bilirubin Urine Urobilinogen Ur Leukocyte Esterase Urine WBC (Auto) Urine RBC (Auto) Ur Squamous Epith Cells Urine Bacteria Salicylates Urine Opiates Screen Urine Methadone Screen Acetaminophen Ur Barbiturates Screen Ur Phencyclidine Scrn Ur Amphetamines Screen U Benzodiazepines Scrn U Oth Cocaine Metabols U Cannabinoids Screen Alcohol, Quantitative Serum Ketones Trace 01/27/18 01/27/18 01/27/18 21:20 21:20 21:52 WBC RBC Hgb Hct MCV MCH MCHC RDW Plt Count MPV Neut % (Auto) Lymph % (Auto) [place] % (Auto) Eos % (Auto) Baso % (Auto) Neut # (Auto) Lymph # (Auto) [place] # (Auto) Eos # (Auto) Baso # (Auto) Puncture Site pCO2 pO2 24 L HCO3 ABG pH ABG Total CO2 ABG O2 Saturation ABG Base Excess Star Test ABG Potassium VBG pH 7.33 VBG pCO2 27 L VBG HCO3 15.4 VBG Total CO2 15.0 L VBG O2 Sat (Calc) 44.5 VBG Base Excess -10.1 L VBG Potassium 4.6 A-a O2 Difference Respiratory Index Glucose 84 Lactate 3.8 H FiO2 Crit Value Called To Crit Value Called By Crit Value Read Back Blood Gas Notified Time Sodium 134.0 Potassium Chloride 100.0 Carbon Dioxide Anion Gap BUN Creatinine Est GFR ( Amer) Est GFR (Non-Af Amer) Random Glucose Serum Osmolality Calcium Magnesium Total Bilirubin AST ALT Alkaline Phosphatase Total Protein Albumin Globulin Albumin/Globulin Ratio Arterial Blood Potassium Venous Blood Potassium 4.6 Urine Color Yellow Urine Clarity Clear Urine pH 5.0 Ur Specific [place] 1.018 Urine Protein Negative Urine Glucose (UA) Normal Urine Ketones 2+ H Urine Blood Trace H Urine Nitrate Negative Urine Bilirubin Negative Urine Urobilinogen Normal Ur Leukocyte Esterase Neg Urine WBC (Auto) 1 Urine RBC (Auto) 2 Ur Squamous Epith Cells < 1 Urine Bacteria Rare Salicylates Urine Opiates Screen Negative Urine Methadone Screen Negative Acetaminophen Ur Barbiturates Screen Negative Ur Phencyclidine Scrn Negative Ur Amphetamines Screen Negative U Benzodiazepines Scrn Negative U Oth Cocaine Metabols Negative U Cannabinoids Screen Negative Alcohol, Quantitative Serum Ketones 01/27/18 21:55 WBC RBC Hgb Hct MCV MCH MCHC RDW Plt Count MPV Neut % (Auto) Lymph % (Auto) [place] % (Auto) Eos % (Auto) Baso % (Auto) Neut # (Auto) Lymph # (Auto) [place] # (Auto) Eos # (Auto) Baso # (Auto) Puncture Site pCO2 pO2 HCO3 ABG pH ABG Total CO2 ABG O2 Saturation ABG Base Excess Star Test ABG Potassium VBG pH VBG pCO2 VBG HCO3 VBG Total CO2 VBG O2 Sat (Calc) VBG Base Excess VBG Potassium A-a O2 Difference Respiratory Index Glucose Lactate FiO2 Crit Value Called To Crit Value Called By Crit Value Read Back Blood Gas Notified Time Sodium 137 Potassium 4.3 Chloride 101 Carbon Dioxide 13 L Anion Gap 27 H BUN 18 Creatinine 0.9 Est GFR ( Amer) > 60 Est GFR (Non-Af Amer) > 60 Random Glucose 83 Serum Osmolality Calcium 7.1 L Magnesium Total Bilirubin 1.6 H AST 99 H ALT 57 Alkaline Phosphatase 69 Total Protein 7.3 Albumin 3.9 Globulin 3.3 Albumin/Globulin Ratio 1.2 Arterial Blood Potassium Venous Blood Potassium Urine Color Urine Clarity Urine pH Ur Specific [place] Urine Protein Urine Glucose (UA) Urine Ketones Urine Blood Urine Nitrate Urine Bilirubin Urine Urobilinogen Ur Leukocyte Esterase Urine WBC (Auto) Urine RBC (Auto) Ur Squamous Epith Cells Urine Bacteria Salicylates Urine Opiates Screen Urine Methadone Screen Acetaminophen Ur Barbiturates Screen Ur Phencyclidine Scrn Ur Amphetamines Screen U Benzodiazepines Scrn U Oth Cocaine Metabols U Cannabinoids Screen Alcohol, Quantitative Serum Ketones Assessment & Plan - Assessment and Plan (Free Text) Assessment: 52yo M admitted for Suicidality and EtOH withdrawal Paranoid Schizophrenia with suicidality -psychiatry consult; thank you for your hlep -c/w risperdal and gabapentin; will hold trazodone as it lowers seizure threshold -1:1 for suicidality Etoh Withdrawal -50mg Q6H ANNETTE Librium; hold if lethargic -50mg Q2H PRN Librium; hold if lethargic -thiamine and folate IV now; PO daily -CIWA/Seizure precautions -head CT/neck WNL; please refer to full report -EKG NSR with no QTC prolongation Lactic acidosis with gap -will give 1more L; received 2L already and lactic acid came down -will recheck CMP, osmolar gap, and EtOH at 1:00AM -150ml/hr NS Thrombocytopenia -most likely 2/2 to EtOH abuse -will follow Chest Pain -will re-check MAEVE in morning; has had for more than 1 month -echo 3 months ago was WNL; no abnormalities; please refer to full report -stress test was also normal Proph -SCD; chemical prophylaxis not indicated 2/2 to thrombocytopenia -GI prophylaxis not indicated Discussed and seen with Dr. Chery Lr PGY2 Decision To Admit - Pt Status Changed To: Hospital Disposition Of: Inpatient - Admit Certification Admit to Inpatient:: After my assessment, the patient will require hospitalization for at least two midnights. This is because of the severity of symptoms shown, intensity of services needed, and/or the medical risk in this patient being treated as an outpatient. - InPatient: Physician Admission Certification:: patient will need more than 2 midnights - . Bed Request Type: Telemetry Admitting Physician: Caesar Gottlieb <Caesar Gottlieb - Last Filed: 01/28/18 07:26> Results - Vital Signs Recent Vital Signs: Last Vital Signs Temp 97.8 F 01/28/18 00:52 Pulse 96 H 01/28/18 01:53 Resp 22 01/28/18 01:53 BP 119/68 01/28/18 00:52 Pulse Ox 98 01/28/18 01:53 - Labs Result Diagrams: 01/28/18 06:27 01/28/18 00:56 Labs: Laboratory Results - last 24 hr 01/27/18 01/27/18 01/27/18 17:16 17:16 17:16 WBC 7.3 RBC 4.13 L Hgb 12.7 Hct 37.8 MCV 91.5 D MCH 30.9 MCHC 33.7 RDW 17.2 H Plt Count 60 L D MPV 7.2 Neut % (Auto) 75.6 H Lymph % (Auto) 19.0 L [place] % (Auto) 4.5 Eos % (Auto) 0.1 Baso % (Auto) 0.8 Neut # (Auto) 5.5 Lymph # (Auto) 1.4 [place] # (Auto) 0.3 Eos # (Auto) 0.0 Baso # (Auto) 0.1 PT INR APTT Puncture Site pCO2 pO2 HCO3 ABG pH ABG Total CO2 ABG O2 Saturation ABG Base Excess Star Test ABG Potassium VBG pH VBG pCO2 VBG HCO3 VBG Total CO2 VBG O2 Sat (Calc) VBG Base Excess VBG Potassium A-a O2 Difference Respiratory Index Glucose Lactate FiO2 Crit Value Called To Crit Value Called By Crit Value Read Back Blood Gas Notified Time Sodium 136 Potassium 4.0 Chloride 95 L Carbon Dioxide 8 L* D Anion Gap 37 H BUN 24 H Creatinine 1.0 Est GFR ( Amer) > 60 Est GFR (Non-Af Amer) > 60 POC Glucose (mg/dL) Random Glucose 66 L Serum Osmolality Calcium 8.1 L Magnesium 2.1 Iron TIBC % Saturation Total Bilirubin 1.6 H AST 114 H D ALT 62 Alkaline Phosphatase 86 Total Creatine Kinase CK-MB (Mass) Troponin I Total Protein 8.3 Albumin 4.6 Globulin 3.7 Albumin/Globulin Ratio 1.2 Arterial Blood Potassium Venous Blood Potassium Urine Color Urine Clarity Urine pH Ur Specific [place] Urine Protein Urine Glucose (UA) Urine Ketones Urine Blood Urine Nitrate Urine Bilirubin Urine Urobilinogen Ur Leukocyte Esterase Urine WBC (Auto) Urine RBC (Auto) Ur Squamous Epith Cells Urine Bacteria Salicylates < 1.0 Urine Opiates Screen Urine Methadone Screen Acetaminophen < 10.0 L Ur Barbiturates Screen Ur Phencyclidine Scrn Ur Amphetamines Screen U Benzodiazepines Scrn U Oth Cocaine Metabols U Cannabinoids Screen Alcohol, Quantitative 194 H Serum Ketones 01/27/18 01/27/18 01/27/18 18:00 18:25 18:44 WBC RBC Hgb Hct MCV MCH MCHC RDW Plt Count MPV Neut % (Auto) Lymph % (Auto) [place] % (Auto) Eos % (Auto) Baso % (Auto) Neut # (Auto) Lymph # (Auto) [place] # (Auto) Eos # (Auto) Baso # (Auto) PT INR APTT Puncture Site Rradial pCO2 21 L pO2 94 HCO3 13.0 L ABG pH 7.27 L ABG Total CO2 10.2 L ABG O2 Saturation 97.9 ABG Base Excess -15.2 L Star Test Os ABG Potassium 3.7 VBG pH VBG pCO2 VBG HCO3 VBG Total CO2 VBG O2 Sat (Calc) VBG Base Excess VBG Potassium A-a O2 Difference 29.0 Respiratory Index 0.3 Glucose 75 Lactate 4.8 H* FiO2 21.0 Crit Value Called To Crit Value Called By Iliana vila rcp Crit Value Read Back Y Blood Gas Notified Time 1833 Sodium 135.0 Potassium Chloride 96.0 L Carbon Dioxide Anion Gap BUN Creatinine Est GFR ( Amer) Est GFR (Non-Af Amer) POC Glucose (mg/dL) Random Glucose Serum Osmolality 348 H Calcium Magnesium Iron TIBC % Saturation Total Bilirubin AST ALT Alkaline Phosphatase Total Creatine Kinase CK-MB (Mass) Troponin I Total Protein Albumin Globulin Albumin/Globulin Ratio Arterial Blood Potassium 3.7 Venous Blood Potassium Urine Color Urine Clarity Urine pH Ur Specific [place] Urine Protein Urine Glucose (UA) Urine Ketones Urine Blood Urine Nitrate Urine Bilirubin Urine Urobilinogen Ur Leukocyte Esterase Urine WBC (Auto) Urine RBC (Auto) Ur Squamous Epith Cells Urine Bacteria Salicylates Urine Opiates Screen Urine Methadone Screen Acetaminophen Ur Barbiturates Screen Ur Phencyclidine Scrn Ur Amphetamines Screen U Benzodiazepines Scrn U Oth Cocaine Metabols U Cannabinoids Screen Alcohol, Quantitative Serum Ketones Trace 01/27/18 01/27/18 01/27/18 21:20 21:20 21:52 WBC RBC Hgb Hct MCV MCH MCHC RDW Plt Count MPV Neut % (Auto) Lymph % (Auto) [place] % (Auto) Eos % (Auto) Baso % (Auto) Neut # (Auto) Lymph # (Auto) [place] # (Auto) Eos # (Auto) Baso # (Auto) PT INR APTT Puncture Site pCO2 pO2 24 L HCO3 ABG pH ABG Total CO2 ABG O2 Saturation ABG Base Excess Star Test ABG Potassium VBG pH 7.33 VBG pCO2 27 L VBG HCO3 15.4 VBG Total CO2 15.0 L VBG O2 Sat (Calc) 44.5 VBG Base Excess -10.1 L VBG Potassium 4.6 A-a O2 Difference Respiratory Index Glucose 84 Lactate 3.8 H FiO2 Crit Value Called To Crit Value Called By Crit Value Read Back Blood Gas Notified Time Sodium 134.0 Potassium Chloride 100.0 Carbon Dioxide Anion Gap BUN Creatinine Est GFR ( Amer) Est GFR (Non-Af Amer) POC Glucose (mg/dL) Random Glucose Serum Osmolality Calcium Magnesium Iron TIBC % Saturation Total Bilirubin AST ALT Alkaline Phosphatase Total Creatine Kinase CK-MB (Mass) Troponin I Total Protein Albumin Globulin Albumin/Globulin Ratio Arterial Blood Potassium Venous Blood Potassium 4.6 Urine Color Yellow Urine Clarity Clear Urine pH 5.0 Ur Specific [place] 1.018 Urine Protein Negative Urine Glucose (UA) Normal Urine Ketones 2+ H Urine Blood Trace H Urine Nitrate Negative Urine Bilirubin Negative Urine Urobilinogen Normal Ur Leukocyte Esterase Neg Urine WBC (Auto) 1 Urine RBC (Auto) 2 Ur Squamous Epith Cells < 1 Urine Bacteria Rare Salicylates Urine Opiates Screen Negative Urine Methadone Screen Negative Acetaminophen Ur Barbiturates Screen Negative Ur Phencyclidine Scrn Negative Ur Amphetamines Screen Negative U Benzodiazepines Scrn Negative U Oth Cocaine Metabols Negative U Cannabinoids Screen Negative Alcohol, Quantitative Serum Ketones 01/27/18 01/28/18 01/28/18 21:55 00:22 00:56 WBC RBC Hgb Hct MCV MCH MCHC RDW Plt Count MPV Neut % (Auto) Lymph % (Auto) [place] % (Auto) Eos % (Auto) Baso % (Auto) Neut # (Auto) Lymph # (Auto) [place] # (Auto) Eos # (Auto) Baso # (Auto) PT 11.3 INR 1.01 APTT 32 Puncture Site pCO2 pO2 HCO3 ABG pH ABG Total CO2 ABG O2 Saturation ABG Base Excess Star Test ABG Potassium VBG pH VBG pCO2 VBG HCO3 VBG Total CO2 VBG O2 Sat (Calc) VBG Base Excess VBG Potassium A-a O2 Difference Respiratory Index Glucose Lactate FiO2 Crit Value Called To Crit Value Called By Crit Value Read Back Blood Gas Notified Time Sodium 137 Potassium 4.3 Chloride 101 Carbon Dioxide 13 L Anion Gap 27 H BUN 18 Creatinine 0.9 Est GFR ( Amer) > 60 Est GFR (Non-Af Amer) > 60 POC Glucose (mg/dL) 117 H Random Glucose 83 Serum Osmolality Calcium 7.1 L Magnesium Iron TIBC % Saturation Total Bilirubin 1.6 H AST 99 H ALT 57 Alkaline Phosphatase 69 Total Creatine Kinase CK-MB (Mass) Troponin I Total Protein 7.3 Albumin 3.9 Globulin 3.3 Albumin/Globulin Ratio 1.2 Arterial Blood Potassium Venous Blood Potassium Urine Color Urine Clarity Urine pH Ur Specific [place] Urine Protein Urine Glucose (UA) Urine Ketones Urine Blood Urine Nitrate Urine Bilirubin Urine Urobilinogen Ur Leukocyte Esterase Urine WBC (Auto) Urine RBC (Auto) Ur Squamous Epith Cells Urine Bacteria Salicylates Urine Opiates Screen Urine Methadone Screen Acetaminophen Ur Barbiturates Screen Ur Phencyclidine Scrn Ur Amphetamines Screen U Benzodiazepines Scrn U Oth Cocaine Metabols U Cannabinoids Screen Alcohol, Quantitative Serum Ketones 01/28/18 01/28/18 01/28/18 00:56 00:56 06:27 WBC 4.3 L RBC 3.48 L Hgb 10.7 L D Hct 31.4 L MCV 90.2 MCH 30.7 MCHC 34.0 RDW 16.7 H Plt Count 43 L MPV 7.2 Neut % (Auto) Lymph % (Auto) 37.0 [place] % (Auto) 8.4 Eos % (Auto) 0.6 Baso % (Auto) 0.5 Neut # (Auto) Lymph # (Auto) 1.6 [place] # (Auto) 0.4 Eos # (Auto) 0.0 Baso # (Auto) 0.0 PT INR APTT Puncture Site pCO2 pO2 HCO3 ABG pH ABG Total CO2 ABG O2 Saturation ABG Base Excess Star Test ABG Potassium VBG pH VBG pCO2 VBG HCO3 VBG Total CO2 VBG O2 Sat (Calc) VBG Base Excess VBG Potassium A-a O2 Difference Respiratory Index Glucose Lactate FiO2 Crit Value Called To Crit Value Called By Crit Value Read Back Blood Gas Notified Time Sodium 137 Potassium 4.4 Chloride 104 Carbon Dioxide 16 L Anion Gap 22 H BUN 16 Creatinine 0.8 Est GFR ( Amer) > 60 Est GFR (Non-Af Amer) > 60 POC Glucose (mg/dL) Random Glucose 110 Serum Osmolality 290 Calcium 6.9 L Magnesium Iron TIBC % Saturation Total Bilirubin 1.7 H AST 90 H ALT 47 Alkaline Phosphatase 60 Total Creatine Kinase CK-MB (Mass) Troponin I Total Protein 6.6 Albumin 3.6 Globulin 3.1 Albumin/Globulin Ratio 1.2 Arterial Blood Potassium Venous Blood Potassium Urine Color Urine Clarity Urine pH Ur Specific [place] Urine Protein Urine Glucose (UA) Urine Ketones Urine Blood Urine Nitrate Urine Bilirubin Urine Urobilinogen Ur Leukocyte Esterase Urine WBC (Auto) Urine RBC (Auto) Ur Squamous Epith Cells Urine Bacteria Salicylates Urine Opiates Screen Urine Methadone Screen Acetaminophen Ur Barbiturates Screen Ur Phencyclidine Scrn Ur Amphetamines Screen U Benzodiazepines Scrn U Oth Cocaine Metabols U Cannabinoids Screen Alcohol, Quantitative 10 Serum Ketones 01/28/18 01/28/18 01/28/18 06:28 06:28 06:28 WBC RBC Hgb Hct MCV MCH MCHC RDW Plt Count MPV Neut % (Auto) Lymph % (Auto) [place] % (Auto) Eos % (Auto) Baso % (Auto) Neut # (Auto) Lymph # (Auto) [place] # (Auto) Eos # (Auto) Baso # (Auto) PT INR APTT Puncture Site pCO2 pO2 HCO3 ABG pH ABG Total CO2 ABG O2 Saturation ABG Base Excess Star Test ABG Potassium VBG pH VBG pCO2 VBG HCO3 VBG Total CO2 VBG O2 Sat (Calc) VBG Base Excess VBG Potassium A-a O2 Difference Respiratory Index Glucose Lactate FiO2 Crit Value Called To Crit Value Called By Crit Value Read Back Blood Gas Notified Time Sodium Potassium Chloride Carbon Dioxide Anion Gap BUN Creatinine Est GFR ( Amer) Est GFR (Non-Af Amer) POC Glucose (mg/dL) Random Glucose Serum Osmolality Calcium Magnesium Iron 225 H TIBC 296 % Saturation 77 H 76 H Total Bilirubin AST ALT Alkaline Phosphatase Total Creatine Kinase 272 H CK-MB (Mass) 2.05 Troponin I < 0.0120 Total Protein Albumin Globulin Albumin/Globulin Ratio Arterial Blood Potassium Venous Blood Potassium Urine Color Urine Clarity Urine pH Ur Specific [place] Urine Protein Urine Glucose (UA) Urine Ketones Urine Blood Urine Nitrate Urine Bilirubin Urine Urobilinogen Ur Leukocyte Esterase Urine WBC (Auto) Urine RBC (Auto) Ur Squamous Epith Cells Urine Bacteria Salicylates Urine Opiates Screen Urine Methadone Screen Acetaminophen Ur Barbiturates Screen Ur Phencyclidine Scrn Ur Amphetamines Screen U Benzodiazepines Scrn U Oth Cocaine Metabols U Cannabinoids Screen Alcohol, Quantitative Serum Ketones Attending/Attestation - Attestation I have personally seen and examined this patient.: Yes I have fully participated in the care of the patient.: Yes I have reviewed all pertinent clinical information: Yes Notes (Text): Auditory/visual hallucinations asking him to kill him, hence taken trazodone AMS apparently from seizure, not witnessed but alcohol withdrawal, injuries on face, hematoma in lip and chin, use of trazodone Schizophrenia No family or social support, homeless. Dehydrated Lactic acidosis, expect swings in electrolytes with initial if replacement. CP negative w/u at this time, recent stress test negative Thrombocytopenia chronic unchanged, likely alcohol related Plan IVF Monitor labs Ativan, thiamine, mvt, fa, Watch for dts high likely sims Control of schizophrenia, med adjustment, pshch eval 1:1 observation Scds, avoid pharmacological anticoagulation dvt prophylaxis due to thrombocytopenia. See orders for detail.
[2018-01-27] MEDS ORDERED: Sodium Chloride 0.9% 1,000 ML IV ONE (23:54)
[2018-01-27] MEDS ORDERED: Thiamine 100 mg/ml Inj ONE (23:56)
[2018-01-28] MEDS ORDERED: Glucagon Recombinant 1 mg Inj IM PRN (00:03)
[2018-01-28] MEDS ORDERED: Dextrose 50% SYRINGE Inj (50 ml) IV PRN (00:03)
[2018-01-28] MEDS: Sodium Chloride 0.9% 1,000 ML IV SCH ×6 (00:30→23:23)
[2018-01-28 01:13] LABS: PROTHROMBIN TIME 11.3 SECONDS (9.7-12.2)
[2018-01-28 01:14] LABS: INR 1.01 (0.92-1.08)
[2018-01-28 01:32] LABS: ALB/GLOB RATIO 1.2 (1.0-2.1); ALBUMIN 3.6 g/dL (3.5-5.0); ALT/SGPT 47 U/L (21-72); AST/SGOT 90 U/L (17-59); BLOOD UREA NITROGEN 16 mg/dL (9-20); CALCIUM 6.9 mg/dl (8.6-10.4); GFR AFRICAN-AMERICAN > 60; GFR NON-AFRICAN AMERICAN > 60
[2018-01-28] MEDS ORDERED: Calcium Gluconate 4.65 mEq/10 ml Inj IVP ONE (03:14)
--- NOTE | 2018-01-28 03:40 | CP.PCM.PCO ---
Physician Communication Note - Physician Communication Note Physician Communication Note: please call Dr. Gold/Pillo for Psych consultation. Thank you
[2018-01-28 06:36] LABS: RBC 3.48 Mil/uL (4.40-5.90); WHITE BLOOD COUNT 4.3 K/uL (4.8-10.8)
[2018-01-28 06:37] LABS: MEAN CELL VOLUME 90.2 fL (80.0-94.0); MEAN CORPUSCULAR HEMOGLOBIN 30.7 pg (27.0-31.0); MEAN PLATELET VOLUME 7.2 fL (7.2-11.7); RED CELL DISTRIBUTION WIDTH 16.7 % (11.5-14.5)
[2018-01-28 06:38] LABS: BASO % 0.5 % (0.0-2.0); EOS % 0.6 % (0.0-4.0); LYMPH # 1.6 K/uL (1.0-4.3); MONO # 0.4 K/uL (0.0-0.8); MONO % 8.4 % (0.0-10.0)
[2018-01-28 06:39] LABS: HEMOGLOBIN 10.7 g/dL (12.0-18.0)
[2018-01-28 06:51] LABS: IRON 225 ug/dL (49-181)
[2018-01-28 07:00] LABS: % IRON SATURATION 76 (20-55); TOTAL IRON BINDING CAPACITY 296 ug/dL (250-450)
[2018-01-28 07:01] LABS: % IRON SATURATION 77 (20-55)
[2018-01-28 07:03] LABS: CK-MB 2.05 ng/mL (0.0-3.38)
[2018-01-28 07:32] LABS: HIV 1&2 ANTIBODY NEGATIVE (NEGATIVE)
[2018-01-28 10:56] LABS: ALB/GLOB RATIO 1.1 (1.0-2.1); ALBUMIN 3.4 g/dL (3.5-5.0); ALT/SGPT 41 U/L (21-72); AST/SGOT 111 U/L (17-59); BLOOD UREA NITROGEN 14 mg/dL (9-20); CALCIUM 7.1 mg/dl (8.6-10.4); GFR AFRICAN-AMERICAN > 60; GFR NON-AFRICAN AMERICAN > 60
[2018-01-28 11:00] LABS: LIPASE 304 U/L (23-300)
--- NOTE | 2018-01-28 14:40 | CP.PCM.PN ---
<Gay Zuniga - Last Filed: 01/28/18 14:32> Subjective - Date & Time of Evaluation Date of Evaluation: 01/28/18 Time of Evaluation: 14:32 - Subjective Subjective: Patient seen and examined at bedside. Patient resting comfortably in bed with no new complaints at this time. Patient says he is feeling better today but he is still having mild chest pain and SOB. Patient is tolerating his diet. He is somewhat tremulous, but denies abdominal pain, N&V, diarrhea, constipation, lower extremity pain/swelling, fevers, chills, headache, and dizziness. Objective - Vital Signs/Intake and Output Vital Signs (last 24 hours): Temp Pulse Resp BP Pulse Ox 98.5 F 89 19 140/66 97 01/28/18 09:22 01/28/18 10:00 01/28/18 09:22 01/28/18 09:22 01/28/18 09:22 Intake and Output: 01/28/18 01/28/18 06:59 18:59 Intake Total 1150 980 Output Total 400 1000 Balance 750 -20 - Medications Medications: Current Medications Chlordiazepoxide (Librium) 50 mg PO Q2H PRN PRN Reason: withdrawal Chlordiazepoxide (Librium) 50 mg PO Q6 [facility] PRN Reason: Taper Stop: 02/01/18 17:59 Dextrose (Dextrose 50% Inj) 0 ml IV STAT PRN; Protocol PRN Reason: Hypoglycemia Protocol Dextrose (Glutose 15) 15 gm PO ONCE PRN; Protocol PRN Reason: Hypoglycemia Protocol Folic Acid (Folic Acid) 1 mg PO DAILY [facility] Last Admin: 01/28/18 10:02 Dose: 1 mg Gabapentin (Neurontin) 100 mg PO BID [facility] Last Admin: 01/28/18 10:02 Dose: 100 mg Glucagon (Glucagen Diagnostic Kit) 1 mg IM STAT PRN; Protocol PRN Reason: Hypoglycemia Protocol Dextrose (Dextrose 5% In Water 1000 Ml) 1,000 mls @ 0 mls/hr IV .Q0M PRN; Protocol; Per Protocol PRN Reason: Hypoglycemia Protocol Sodium Chloride (Sodium Chloride 0.9%) 1,000 mls @ 100 mls/hr IV .Q10H [facility] Last Admin: 01/28/18 13:28 Dose: 100 mls/hr Ketorolac Tromethamine (Toradol) 30 mg IV Q6 PRN PRN Reason: Pain, moderate (4-7) Last Admin: 01/28/18 09:57 Dose: 30 mg Lorazepam (Ativan) 1 mg IVP Q4H PRN PRN Reason: Symptoms of alcohol withdrawl Ondansetron HCl (Zofran Inj) 4 mg IVP Q6 PRN PRN Reason: Nausea/Vomiting Risperidone (Risperdal Tab) 1 mg PO BID [facility] Last Admin: 01/28/18 10:20 Dose: 1 mg Thiamine HCl (Vitamin B1 Tab) 100 mg PO DAILY [facility] Last Admin: 01/28/18 10:01 Dose: 100 mg - Labs Labs: 01/28/18 06:27 01/28/18 06:28 PT 11.3 SECONDS (9.7-12.2) 01/28/18 00:56 INR 1.01 (0.92-1.08) 01/28/18 00:56 APTT 32 SECONDS (21-34) 01/28/18 00:56 - Constitutional Appears: Non-toxic, No Acute Distress, Unkempt - Head Exam Head Exam: ATRAUMATIC, NORMAL INSPECTION, NORMOCEPHALIC - Eye Exam Eye Exam: EOMI, Normal appearance, PERRL - ENT Exam ENT Exam: Mucous Membranes Moist - Neck Exam Neck Exam: Normal Inspection - Respiratory Exam Respiratory Exam: Clear to Ausculation Bilateral, NORMAL BREATHING PATTERN. absent: Accessory Muscle Use, Rales, Rhonchi, Wheezes, Respiratory Distress - Cardiovascular Exam Cardiovascular Exam: RRR, +S1, +S2. absent: Bradycardia, Tachycardia, Diastolic murmur, Gallop, Rubs, Murmur - GI/Abdominal Exam GI & Abdominal Exam: Soft, Normal Bowel Sounds. absent: Distended, Tenderness - Extremities Exam Extremities Exam: Normal Inspection. absent: Calf Tenderness, Pedal Edema - Neurological Exam Neurological Exam: Alert, Awake, Oriented x3 - Psychiatric Exam Psychiatric exam: Normal Affect, Normal Mood - Skin Skin Exam: Dry, Intact, Normal Color, Warm Assessment and Plan - Assessment and Plan (Free Text) Plan: Paranoid Schizophrenia with suicidality -psychiatry consult (Dr. Ferro) - help appreciated -continue risperdal and gabapentin; will hold trazodone as it lowers seizure threshold -1:1 for suicidality Etoh Withdrawal -50mg Q6H [facility] Librium; hold if lethargic -50mg Q2H PRN Librium; hold if lethargic -thiamine and folate daily -CIWA/Seizure precautions -EKG NSR with no QTC prolongation -AST elevated -Lipase 304 History of recent fall with head trauma -head CT/neck WNL; please refer to full report -maxillofacial CT WNL; please see full report Lactic acidosis with gap -resolving but will continue to monitor -100ml/hr NS Thrombocytopenia -most likely 2/2 to EtOH abuse -will follow Anemia -Iron 225, TIBC 296, % Sat 76 Chest Pain -MAEVE negative; has had for more than 1 month -echo 3 months ago was WNL; no abnormalities; please refer to full report -stress test was also normal Proph -SCD; chemical prophylaxis not indicated 2/2 to thrombocytopenia -GI prophylaxis not indicated <Matt Ashley - Last Filed: 01/28/18 15:08> Objective - Vital Signs/Intake and Output Vital Signs (last 24 hours): Temp Pulse Resp BP Pulse Ox 98.5 F 89 19 140/66 97 01/28/18 09:22 01/28/18 10:00 01/28/18 09:22 01/28/18 09:22 01/28/18 09:22 Intake and Output: 01/28/18 01/28/18 06:59 18:59 Intake Total 1150 980 Output Total 400 1000 Balance 750 -20 - Medications Medications: Current Medications Chlordiazepoxide (Librium) 50 mg PO Q2H PRN PRN Reason: withdrawal Chlordiazepoxide (Librium) 50 mg PO Q6 [facility] PRN Reason: Taper Stop: 02/01/18 17:59 Dextrose (Dextrose 50% Inj) 0 ml IV STAT PRN; Protocol PRN Reason: Hypoglycemia Protocol Dextrose (Glutose 15) 15 gm PO ONCE PRN; Protocol PRN Reason: Hypoglycemia Protocol Folic Acid (Folic Acid) 1 mg PO DAILY [facility] Last Admin: 01/28/18 10:02 Dose: 1 mg Gabapentin (Neurontin) 100 mg PO BID [facility] Last Admin: 01/28/18 10:02 Dose: 100 mg Glucagon (Glucagen Diagnostic Kit) 1 mg IM STAT PRN; Protocol PRN Reason: Hypoglycemia Protocol Dextrose (Dextrose 5% In Water 1000 Ml) 1,000 mls @ 0 mls/hr IV .Q0M PRN; Protocol; Per Protocol PRN Reason: Hypoglycemia Protocol Sodium Chloride (Sodium Chloride 0.9%) 1,000 mls @ 100 mls/hr IV .Q10H [facility] Last Admin: 01/28/18 13:28 Dose: 100 mls/hr Ketorolac Tromethamine (Toradol) 30 mg IV Q6 PRN PRN Reason: Pain, moderate (4-7) Last Admin: 01/28/18 09:57 Dose: 30 mg Lorazepam (Ativan) 1 mg IVP Q4H PRN PRN Reason: Symptoms of alcohol withdrawl Ondansetron HCl (Zofran Inj) 4 mg IVP Q6 PRN PRN Reason: Nausea/Vomiting Risperidone (Risperdal Tab) 1 mg PO BID [facility] Last Admin: 01/28/18 10:20 Dose: 1 mg Thiamine HCl (Vitamin B1 Tab) 100 mg PO DAILY [facility] Last Admin: 01/28/18 10:01 Dose: 100 mg - Labs Labs: 01/28/18 06:27 01/28/18 06:28 PT 11.3 SECONDS (9.7-12.2) 01/28/18 00:56 INR 1.01 (0.92-1.08) 01/28/18 00:56 APTT 32 SECONDS (21-34) 01/28/18 00:56 Attending/Attestation - Attestation I have personally seen and examined this patient.: Yes I have fully participated in the care of the patient.: Yes I have reviewed all pertinent clinical information, including history, physical exam and plan: Yes Notes (Text): 01/28/18 15:08 Medical attending: Patient was seen and examined by me, agrees the above note by dental assistant medical assistant. We saw the patient together Patient is still having some very very fine tremors on exam. Nevertheless reviewed and continue with the regimen that he's on including Librium that is both when necessary as well as part of a tapering protocol. Also we added on IV Ativan again as a when necessary. Last night when the the patient came in, it was in noted that he did have a metabolic acidosis and a very low bicarbonate. Since then this is improved the bicarbonate is now 19. Reviewed and continue with intravenous fluids however a slightly slower rate now of 100 mL an hour. He is tolerating by mouth diet this afternoon. Earlier in the morning when we saw him he was reporting a poor appetite As reflected in the H&P when the patient can and he still seems to have a very poor affect and doesn't really answer questions correctly from time to time. This may be due to a language barrier as well as a history of severe alcohol use , alcoholic dementia, or Korsakoff's dementia for example We'll also try to see if physical therapy will be seen thank you Matt Ashley
--- NOTE | 2018-01-28 15:18 | PCM.PSYCH ---
Initial Psychiatric Evaluation - Initial Psychiatric Evaluation Type of Admission: Voluntary Legal Status: Capacity Chief Complaint (in patient's own words): "Depressed" History of Present Illness and Precipitating Events: The pt is seen, chart reviewed, case discussed. Consult was asked for his alcohol wdw and suicidality. He is known from previous consults and admissions. He is a poor historian. Info is gathered from staff, chart and the pt. He contracted for safety and will follow safety plan; call nurses, ask for help, take meds, go to psych when medically cleared. No plans to hurt self now, 1:1 d/c'ed for now but he will be monitored closely - discussed w nurse. 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 The patient informed our PES worker that he had wanted to end his life andhe told this bid writer that he was "fed up" with the way he lives. However , he agreed to come to psychiatry and consider options like going to a skilled nursing rehab. The patient was previously hospitalized at [facility] in [place], for mental health issues. The patient was also hospitalized at [facility] in August 2017. He was depressed and paranoid, hearing voices. The patient was prescribed Seroquel, Zoloft and Gabepentin. The patient reports using alcohol about 1 pint of vodka daily. The patient denies any other substance use. Past psych hx: Two admissions. No suicide attempt, drinks more than 5 years, denies drugs/cigarettes Medical hx: Per chart Family Hx: Denied Current Medications: Active Medications Generic Name Dose Route Start Last Admin Trade Name Freq PRN Reason Stop Dose Admin Chlordiazepoxide 50 mg 01/27/18 23:58 Librium PO Q2H PRN withdrawal Chlordiazepoxide 50 mg 01/28/18 18:00 Librium PO 02/01/18 17:59 Q6 [facility] Taper Dextrose 0 ml 01/28/18 00:03 Dextrose 50% Inj IV STAT PRN Hypoglycemia Protocol Protocol Dextrose 15 gm 01/28/18 00:03 Glutose 15 PO ONCE PRN Hypoglycemia Protocol Protocol Folic Acid 1 mg 01/28/18 10:00 01/28/18 10:02 Folic Acid PO 1 mg DAILY [facility] Administration Gabapentin 100 mg 01/28/18 10:00 01/28/18 10:02 Neurontin PO 100 mg BID [facility] Administration Glucagon 1 mg 01/28/18 00:03 Glucagen Diagnostic Kit IM STAT PRN Hypoglycemia Protocol Protocol Dextrose 1,000 mls @ 0 mls/hr 01/28/18 00:03 Dextrose 5% In Water 1000 Ml IV .Q0M PRN Hypoglycemia Protocol Protocol Per Protocol Sodium Chloride 1,000 mls @ 100 mls/hr 01/28/18 13:13 01/28/18 13:28 Sodium Chloride 0.9% IV 100 mls/hr .Q10H [facility] Administration Ketorolac Tromethamine 30 mg 01/27/18 22:57 01/28/18 09:57 Toradol IV 30 mg Q6 PRN Administration Pain, moderate (4-7) Lorazepam 1 mg 01/28/18 10:05 Ativan IVP Q4H PRN Symptoms of alcohol withdrawl Ondansetron HCl 4 mg 01/27/18 22:57 Zofran Inj IVP Q6 PRN Nausea/Vomiting Risperidone 1 mg 01/28/18 10:00 01/28/18 10:20 Risperdal Tab PO 1 mg BID [facility] Administration Thiamine HCl 100 mg 01/28/18 10:00 01/28/18 10:01 Vitamin B1 Tab PO 100 mg DAILY [facility] Administration Past Psychiatric History - Past Psychiatric History Previous Treatment History: Inpatient Pertinent Medical Hx (Current Medical&Sleep Prob, Allergies): Allergies Allergy/AdvReac Type Severity Reaction Status Date / Time No Known Allergies Allergy Verified 10/29/17 15:48 Gabapentin [Neurontin] 100 mg PO BID 01/27/18 risperiDONE [RisperDAL Tab] 1 mg PO BID 01/27/18 traZODone [trazODONE HYDROCHLORIDE] 50 mg PO BID 01/27/18 Review of Systems - Neurological Neurological: Tremor - Psychiatric Psychiatric: Abnormal Sleep Pattern, Anxiety, Auditory Hallucinations, Irritability, Mood Swings, Paranoia, Suicidal Ideation (no plans, urges, intentions, "less now"). absent: Homicidal Ideation Mental Status Examination - Personal Presentation Personal Presentation: Looks older than stated age - Affect Affect: Blunted - Motor Activity Motor Activity: Calm - Reliability in Providing Information Reliability in Providing Information: Fair - Speech Speech: Disorganized - Mood Mood: Depressed, Anxious - Formal Thought Process Formal Thought Process: Hallucinations - Cognitive Functions Orientation: Person, Place, Time Sensorium: Drowsy Attention/Concentration: Easily distracted Estimate of Intelligence: Average Judgement: Imparied, as evidence by: Poor judgement Memory: Recent impaired, as evidence by: Inability to recall events of the day, Remote impaired as evidenced by: Inability to recall sig life events - Risk Risk: Withdrawal, Diminished functioning - Strength & Assets Inventory Strength & Assets Inventory: Cooperative - Limitations Limitations: Living alone, Other DSM 5 DX - DSM 5 DSM 5 Diagnosis: Schizoaffective d/o - depressed Alcohol withdrawal Alcohol use d/o - severe - Recommended/Plan of Treatment Treatment Recommendations and Plan of Treatment: Librium detox As needed medications Gabapentin for augmentation if needed All risks, benefits and alternatives of medications, including no medications, discussed and the patient understood and agreed. Supportive therapy and psychoeducation OR for abstinence Encourage MAT (antabuse, naltrexone), rehab or IOP Attend self-help groups as well Lexapro for depression Seroquel for schizoaffective d/o but when he is less sedated CBT and support 34 min
--- NOTE | 2018-01-28 23:09 | CARD ---
APPROVED REPORT EKG Measurement Heart [id number] ND [id number] <Conclusion> Normal sinus rhythm Normal ECG
[2018-01-29 06:51] LABS: BASO % 0.9 % (0.0-2.0); EOS % 0.5 % (0.0-4.0); HEMOGLOBIN 11.9 g/dL (12.0-18.0); LYMPH # 1.3 K/uL (1.0-4.3); LYMPH % 36.1 % (20.0-40.0); MEAN CELL VOLUME 90.8 fL (80.0-94.0); MEAN CORPUSCULAR HEMOGLOBIN 31.5 pg (27.0-31.0); MEAN CORPUSCULAR HGB CONC 34.7 g/dL (33.0-37.0); MEAN PLATELET VOLUME 7.5 fL (7.2-11.7); MONO # 0.3 K/uL (0.0-0.8); MONO % 7.5 % (0.0-10.0); NEUT # 1.9 K/uL (1.8-7.0); NRBC % 0.2 % (0.0-2.0); RBC 3.77 Mil/uL (4.40-5.90); RED CELL DISTRIBUTION WIDTH 16.7 % (11.5-14.5); WHITE BLOOD COUNT 3.5 K/uL (4.8-10.8)
[2018-01-29 07:14] LABS: ALB/GLOB RATIO 1.2 (1.0-2.1); ALT/SGPT 40 U/L (21-72); AST/SGOT 62 U/L (17-59); BLOOD UREA NITROGEN 8 mg/dL (9-20); CALCIUM 8.3 mg/dl (8.6-10.4); GFR AFRICAN-AMERICAN > 60; GFR NON-AFRICAN AMERICAN > 60
[2018-01-29] MEDS: Magnesium Sulfate 1 gm in D5W 1 GM/100 ML BAG IVPB SCH ×2 (09:15→10:20)
--- NOTE | 2018-01-29 09:16 | CP.PCM.PN ---
<Matt Wasserman - Last Filed: 01/29/18 16:57> Subjective - Date & Time of Evaluation Date of Evaluation: 01/29/18 Time of Evaluation: 08:25 - Subjective Subjective: PGY2 Medicine note for Dr. Ashley Patient seen and examined at bedside. Patient resting comfortably in bed with no new complaints at this time. His chest is still mildly tender to palpation, although he reports this has improved. He is tolerating his diet and reports his tremors have resolved. He is asking when he can be admitted to the psych floor. He denies abdominal pain, n/v, d/c, LE pain/swelling, fevers, chills, headache, and dizziness. 12-point ROS otherwise negative. Objective - Vital Signs/Intake and Output Vital Signs (last 24 hours): Temp Pulse Resp BP Pulse Ox 97.5 F L 67 20 139/90 98 01/29/18 08:53 01/29/18 08:00 01/29/18 08:00 01/29/18 08:00 01/29/18 08:00 Intake and Output: 01/29/18 01/29/18 06:59 18:59 Intake Total 1800 Output Total 1300 Balance 500 - Medications Medications: Current Medications Acetaminophen (Tylenol 325mg Tab) 650 mg PO Q6 PRN PRN Reason: Headache Last Admin: 01/29/18 08:53 Dose: 650 mg Chlordiazepoxide (Librium) 50 mg PO Q2H PRN PRN Reason: withdrawal Chlordiazepoxide (Librium) 50 mg PO Q6H [facility] PRN Reason: Taper Stop: 02/01/18 17:59 Last Admin: 01/29/18 06:19 Dose: 50 mg Dextrose (Dextrose 50% Inj) 0 ml IV STAT PRN; Protocol PRN Reason: Hypoglycemia Protocol Dextrose (Glutose 15) 15 gm PO ONCE PRN; Protocol PRN Reason: Hypoglycemia Protocol Escitalopram Oxalate (Lexapro) 10 mg PO DAILY [facility] Last Admin: 01/29/18 09:06 Dose: 10 mg Folic Acid (Folic Acid) 1 mg PO DAILY [facility] Last Admin: 01/29/18 09:06 Dose: 1 mg Gabapentin (Neurontin) 100 mg PO BID [facility] Last Admin: 01/29/18 09:06 Dose: 100 mg Glucagon (Glucagen Diagnostic Kit) 1 mg IM STAT PRN; Protocol PRN Reason: Hypoglycemia Protocol Dextrose (Dextrose 5% In Water 1000 Ml) 1,000 mls @ 0 mls/hr IV .Q0M PRN; Protocol; Per Protocol PRN Reason: Hypoglycemia Protocol Sodium Chloride (Sodium Chloride 0.9%) 1,000 mls @ 100 mls/hr IV .Q10H [facility] Last Admin: 01/28/18 23:23 Dose: 100 mls/hr Magnesium Sulfate/Dextrose (Magnesium Sulfate 1 Gm/100 Ml D5w) 1 gm in 100 mls @ 300 mls/hr IVPB Q30M [facility] Stop: 01/29/18 09:49 Ketorolac Tromethamine (Toradol) 30 mg IV Q6 PRN PRN Reason: Pain, moderate (4-7) Last Admin: 01/28/18 09:57 Dose: 30 mg Lorazepam (Ativan) 1 mg IVP Q4H PRN PRN Reason: Symptoms of alcohol withdrawl Ondansetron HCl (Zofran Inj) 4 mg IVP Q6 PRN PRN Reason: Nausea/Vomiting Risperidone (Risperdal Tab) 1 mg PO BID [facility] Last Admin: 01/29/18 09:12 Dose: 1 mg Thiamine HCl (Vitamin B1 Tab) 100 mg PO DAILY [facility] Last Admin: 01/29/18 09:06 Dose: 100 mg - Labs Labs: 01/29/18 06:39 01/29/18 06:38 PT 11.3 SECONDS (9.7-12.2) 01/28/18 00:56 INR 1.01 (0.92-1.08) 01/28/18 00:56 APTT 32 SECONDS (21-34) 01/28/18 00:56 - Additional Findings Additional findings: - Constitutional Appears: Non-toxic, No Acute Distress, Unkempt - Head Exam Head Exam: ATRAUMATIC, NORMAL INSPECTION, NORMOCEPHALIC - Eye Exam Eye Exam: EOMI, Normal appearance, PERRL - ENT Exam ENT Exam: Mucous Membranes Moist - Neck Exam Neck Exam: Normal Inspection - Respiratory Exam Respiratory Exam: Clear to Ausculation Bilateral, NORMAL BREATHING PATTERN. absent: Accessory Muscle Use, Rales, Rhonchi, Wheezes, Respiratory Distress - Cardiovascular Exam Cardiovascular Exam: RRR, +S1, +S2. absent: Bradycardia, Tachycardia, Diastolic murmur, Gallop, Rubs, Murmur note: mild TTP at lower sternum - GI/Abdominal Exam GI & Abdominal Exam: Soft, Normal Bowel Sounds. absent: Distended, Tenderness - Extremities Exam Extremities Exam: Normal Inspection. absent: Calf Tenderness, Pedal Edema - Neurological Exam Neurological Exam: Alert, Awake, Oriented x3 note: no asterixis or tremulousness (resolved) - Psychiatric Exam Psychiatric exam: Normal Affect, Normal Mood - Skin Skin Exam: Dry, Intact, Normal Color, Warm Assessment and Plan - Assessment and Plan (Free Text) Assessment: Paranoid Schizophrenia with suicidality 01/29: patient currently stable in ICU. He is being downgraded from telemetry to medsur. He will be evaluated and transfered to psych floor in roughly 2 days when he is ambulating well. -psychiatry consult (Dr. Ferro) - help appreciated -continue risperdal and gabapentin; will hold trazodone as it lowers seizure threshold -1:1 for suicidality Etoh Withdrawal -50mg Q6H [facility] Librium; hold if lethargic -50mg Q2H PRN [facility]; hold if lethargic -thiamine and folate daily -CIWA/Seizure precautions -EKG NSR with no QTC prolongation -AST elevated -Lipase 304 History of recent fall with head trauma -head CT/neck WNL; please refer to full report -maxillofacial CT WNL; please see full report Lactic acidosis with gap -resolving but will continue to monitor -100ml/hr NS Thrombocytopenia -most likely 2/2 to EtOH abuse -will follow Anemia -Iron 225, TIBC 296, % Sat 76 Chest Pain 01/29: patient currently stable in ICU. He is being downgraded from telemetry to medsur. He will be evaluated and transfered to psych floor in roughly 2 days when he is ambulating well. -MAEVE negative; has had for more than 1 month -echo 3 months ago was WNL; no abnormalities; please refer to full report -stress test was also normal Electrolyte Imbalance 01/29: Hypophosphatemia, P=1.0; Neutraphos TID - re-evaluate in AM. Proph -SCD; chemical prophylaxis not indicated 2/2 to thrombocytopenia -GI prophylaxis not indicated -PT eval and treat 01/29/18 <Matt Ashley - Last Filed: 01/29/18 17:15> Objective - Vital Signs/Intake and Output Vital Signs (last 24 hours): Temp Pulse Resp BP Pulse Ox 98.1 F 71 18 140/95 H 98 01/29/18 12:00 01/29/18 11:58 01/29/18 12:00 01/29/18 12:00 01/29/18 08:00 Intake and Output: 01/29/18 01/29/18 06:59 18:59 Intake Total 2930 Output Total 2420 Balance 510 - Medications Medications: Current Medications Acetaminophen (Tylenol 325mg Tab) 650 mg PO Q6 PRN PRN Reason: Headache Last Admin: 01/29/18 08:53 Dose: 650 mg Chlordiazepoxide (Librium) 50 mg PO Q2H PRN PRN Reason: withdrawal Chlordiazepoxide (Librium) 50 mg PO Q6H [facility] PRN Reason: Taper Stop: 02/01/18 17:59 Last Admin: 01/29/18 11:41 Dose: 50 mg Dextrose (Dextrose 50% Inj) 0 ml IV STAT PRN; Protocol PRN Reason: Hypoglycemia Protocol Dextrose (Glutose 15) 15 gm PO ONCE PRN; Protocol PRN Reason: Hypoglycemia Protocol Escitalopram Oxalate (Lexapro) 10 mg PO DAILY [facility] Last Admin: 01/29/18 09:06 Dose: 10 mg Folic Acid (Folic Acid) 1 mg PO DAILY [facility] Last Admin: 01/29/18 09:06 Dose: 1 mg Gabapentin (Neurontin) 100 mg PO BID [facility] Last Admin: 01/29/18 09:06 Dose: 100 mg Glucagon (Glucagen Diagnostic Kit) 1 mg IM STAT PRN; Protocol PRN Reason: Hypoglycemia Protocol Dextrose (Dextrose 5% In Water 1000 Ml) 1,000 mls @ 0 mls/hr IV .Q0M PRN; Protocol; Per Protocol PRN Reason: Hypoglycemia Protocol Sodium Chloride (Sodium Chloride 0.9%) 1,000 mls @ 70 mls/hr IV .[id number] COUNT [facility]CLUDES [facility] Last Admin: 01/29/18 11:10 Dose: 70 mls/hr Ketorolac Tromethamine (Toradol) 30 mg IV Q6 PRN PRN Reason: Pain, moderate (4-7) Last Admin: 01/28/18 09:57 Dose: 30 mg Lorazepam (Ativan) 1 mg IVP Q4H PRN PRN Reason: Symptoms of alcohol withdrawl Ondansetron HCl (Zofran Inj) 4 mg IVP Q6 PRN PRN Reason: Nausea/Vomiting Potassium Phos/Sodium Phos (Neutra-Phos) 1 pkt PO TID COUNT INCLUDES [facility] Stop: 01/29/18 18:01 Last Admin: 01/29/18 13:46 Dose: 1 pkt Risperidone (Risperdal Tab) 1 mg PO BID [facility] Last Admin: 01/29/18 09:12 Dose: 1 mg Thiamine HCl (Vitamin B1 Tab) 100 mg PO DAILY [facility] Last Admin: 01/29/18 09:06 Dose: 100 mg - Labs Labs: 01/29/18 06:39 01/29/18 06:38 PT 11.3 SECONDS (9.7-12.2) 01/28/18 00:56 INR 1.01 (0.92-1.08) 01/28/18 00:56 APTT 32 SECONDS (21-34) 01/28/18 00:56 Attending/Attestation - Attestation I have personally seen and examined this patient.: Yes I have fully participated in the care of the patient.: Yes I have reviewed all pertinent clinical information, including history, physical exam and plan: Yes Notes (Text): 01/29/18 17:15 Medical attending: Patient was seen and examined by me, agrees the above note by the medical laboratory technicians. I also saw the patient with medical laboratory technicians. The patient was more talkative today and following all commands. He still had a very flat affect. Also slow to respond to questions. His lab work was stable today besides a very low phosphorus level for which we repleting. He's being continued on the Librium taper for his alcoholism. Recommend try to move the patient to the regular medical floors. And if he does well possibly he could then move to psychiatry service maybe on Wednesday Matt Ashley
[2018-01-29] MEDS: Sodium Chloride 0.9% 1,000 ML IV SCH ×2 (09:19→11:10)
[2018-01-29] MEDS: Potassium & Sodium Phosphate PO SCH ×3 (09:36→18:01)
--- NOTE | 2018-01-29 23:43 | PCM.RRT ---
DEPUTY TREASURER Nurses Assessment - Situation Date: 01/29/18 Time DEPUTY TREASURER was called: 22:26 DEPUTY TREASURER Responder Arrival Time:: 22:26 DEPUTY TREASURER Location:: ICU Room Number: 16 DEPUTY TREASURER Called By: RN - IV IV Inserted during DEPUTY TREASURER?: No - Respiratory DEPUTY TREASURER Delivery Method: Room Air Received Nebulizer Treatments: No Was the Patient Ventilated with Bag/Mask 100% O2?: No Secretions Suctioned?: No Was the Patient Intubated?: No Was the Patient Placed on a Ventilator?: No CPR started during DEPUTY TREASURER?: No - [place] Coma Scale Coma Scale Eye Opening: Spontaneous Coma Scale Motor: Obeys Commands Movement Coma Scale Verbal: Oriented Coma Scale Total: 15 - Time DEPUTY TREASURER Ended Time DEPUTY TREASURER Ended: 22:27 - Recommendations 5) DEPUTY TREASURER Level of Care Recommendations: Remain in current setting Notifications: Attending Physician I.Reason for DEPUTY TREASURER - A) Acute Change in Patient: Subjective: patient fell but was caught by nurse. He was put in bed to rest. He did not hit his head. No LOC.
[2018-01-30] MEDS: Sodium Chloride 0.9% 1,000 ML IV SCH (01:01)
--- NOTE | 2018-01-30 09:01 | CP.PCM.PN ---
<Matt Wasserman - Last Filed: 01/30/18 12:28> Subjective - Date & Time of Evaluation Date of Evaluation: 01/30/18 Time of Evaluation: 08:30 - Subjective Subjective: PGY2 Medicine note for Dr. Ashley Patient seen and examined at bedside. Patient is disoriented this morning, only oriented to himself (note place/time). Overnight, patient was extremely agitated and was found naked out of his room at 9pm. The house doc was also called because he fell, however there was no trauma. His exam yesterday morning was benign as he was AAOx3 and walking safely. ETOH level was normal at 10 on 01/28/18, and it is suspected that this behavior is due to his psychiatric history. Objective - Vital Signs/Intake and Output Vital Signs (last 24 hours): Temp Pulse Resp BP Pulse Ox 97.6 F 67 14 163/110 H 94 L 01/29/18 23:24 01/30/18 00:39 01/30/18 00:39 01/29/18 23:24 01/30/18 00:39 Intake and Output: 01/30/18 01/30/18 06:59 18:59 Intake Total 910 Output Total 1600 Balance -690 - Medications Medications: Current Medications Acetaminophen (Tylenol 325mg Tab) 650 mg PO Q6 PRN PRN Reason: Headache Last Admin: 01/29/18 08:53 Dose: 650 mg Chlordiazepoxide (Librium) 50 mg PO Q2H PRN PRN Reason: withdrawal Chlordiazepoxide (Librium) 50 mg PO Q8H ANNETTE PRN Reason: Taper Stop: 02/01/18 17:59 Last Admin: 01/30/18 03:45 Dose: Not Given Dextrose (Dextrose 50% Inj) 0 ml IV STAT PRN; Protocol PRN Reason: Hypoglycemia Protocol Dextrose (Glutose 15) 15 gm PO ONCE PRN; Protocol PRN Reason: Hypoglycemia Protocol Escitalopram Oxalate (Lexapro) [address] [facility] Last Admin: 01/29/18 09:06 Dose: 10 mg Folic Acid (Folic Acid) [address] [facility] Last Admin: 01/29/18 09:06 Dose: 1 mg Gabapentin (Neurontin) [address] [facility] Last Admin: 01/29/18 18:01 Dose: 100 mg Glucagon (Glucagen Diagnostic Kit) 1 mg IM STAT PRN; Protocol PRN Reason: Hypoglycemia Protocol Dextrose (Dextrose 5% In Water 1000 Ml) 1,000 mls @ 0 mls/hr IV .Q0M PRN; Protocol; Per Protocol PRN Reason: Hypoglycemia Protocol Sodium Chloride (Sodium Chloride 0.9%) 1,000 mls @ 70 mls/hr IV .[id number] [facility] Last Admin: 01/30/18 01:01 Dose: Not Given Ketorolac Tromethamine (Toradol) 30 mg IV Q6 PRN PRN Reason: Pain, moderate (4-7) Last Admin: 01/28/18 09:57 Dose: 30 mg Lorazepam (Ativan) 1 mg IVP Q2H PRN PRN Reason: Anxiety Last Admin: 01/30/18 05:48 Dose: 1 mg Ondansetron HCl (Zofran Inj) 4 mg IVP Q6 PRN PRN Reason: Nausea/Vomiting Quetiapine Fumarate (Seroquel) [address] [facility] Last Admin: 01/29/18 21:50 Dose: 100 mg Risperidone (Risperdal Tab) [address] [facility] Last Admin: 01/29/18 18:01 Dose: 1 mg Thiamine HCl (Vitamin B1 Tab) [address] [facility] Last Admin: 01/29/18 09:06 Dose: 100 mg - Labs Labs: 01/29/18 06:39 01/29/18 06:38 PT 11.3 SECONDS (9.7-12.2) 01/28/18 00:56 INR 1.01 (0.92-1.08) 01/28/18 00:56 APTT 32 SECONDS (21-34) 01/28/18 00:56 - Additional Findings Additional findings: - Constitutional Appears: Non-toxic, No Acute Distress, Unkempt - Head Exam Head Exam: ATRAUMATIC, NORMAL INSPECTION, NORMOCEPHALIC - Eye Exam Eye Exam: EOMI, Normal appearance, PERRL - ENT Exam ENT Exam: Mucous Membranes Moist - Neck Exam Neck Exam: Normal Inspection - Respiratory Exam Respiratory Exam: Clear to Ausculation Bilateral, NORMAL BREATHING PATTERN. absent: Accessory Muscle Use, Rales, Rhonchi, Wheezes, Respiratory Distress - Cardiovascular Exam Cardiovascular Exam: RRR, +S1, +S2. absent: Bradycardia, Tachycardia, Diastolic murmur, Gallop, Rubs, Murmur note: mild TTP at lower sternum - GI/Abdominal Exam GI & Abdominal Exam: Soft, Normal Bowel Sounds. absent: Distended, Tenderness - Extremities Exam Extremities Exam: Normal Inspection. absent: Calf Tenderness, Pedal Edema - Neurological Exam Neurological Exam: Alert, Awake, Oriented x3 note: no asterixis or tremulousness (resolved) - Psychiatric Exam Psychiatric exam: Normal Affect, Normal Mood - Skin Skin Exam: Dry, Intact, Normal Color, Warm note: no trauma s/p fall Assessment and Plan - Assessment and Plan (Free Text) Assessment: Paranoid Schizophrenia with suicidality 01/30: Patient became very agitated overnight (found naked in hallway, mumbling to himself). He also fell, but did not experience trauma. Placed on 1:1 sitter Ativan was inc to 1mg IVP Q2 PRN overnight. This may account for patients disorientation this morning. Decreased to Ativan 1mg IVP Q6H PRN Spoke with Psychiatrist long haul truck driver, Dr. Sultana. He will re-evaluate the pt today or tomorrow. Currently all beds in Psych 5E are full. 01/29: patient currently stable in ICU. He is being downgraded from telemetry to medsurg. He will be evaluated and transfered to psych floor in roughly 2 days when he is ambulating well. -psychiatry consult (Dr. Ferro) - help appreciated -continue risperdal and gabapentin; will hold trazodone as it lowers seizure threshold -1:1 for suicidality Etoh Withdrawal 5: Ativan was inc to 1mg IVP Q2 PRN overnight. This may account for patients disorientation this morning. Decreased to Ativan 1mg IVP Q6H PRN -50mg Q6H ANNETTE Librium; hold if lethargic -50mg Q2H PRN Librium; hold if lethargic -thiamine and folate daily -CIWA/Seizure precautions -EKG NSR with no QTC prolongation -AST elevated -Lipase 304 History of recent fall with head trauma -head CT/neck WNL; please refer to full report -maxillofacial CT WNL; please see full report Lactic acidosis with gap -resolving but will continue to monitor -100ml/hr NS Thrombocytopenia 01/30: Platelet count stable at 40. -most likely 2/2 to EtOH abuse -will follow Anemia -Iron 225, TIBC 296, % Sat 76 Chest Pain 01/30: chest tender to palpation. continue to monitor. 01/29: patient currently stable in ICU. He is being downgraded from telemetry to medsur. He will be evaluated and transfered to psych floor in roughly 2 days when he is ambulating well. -MAEVE negative; has had for more than 1 month -echo 3 months ago was WNL; no abnormalities; please refer to full report -stress test was also normal Electrolyte Imbalance 01/30: Phosph improved to 2.2. Neutraphos TID (3 more packets total) 01/29: Hypophosphatemia, P=1.0; Neutraphos TID - re-evaluate in AM. Proph -SCD; chemical prophylaxis not indicated 10/29 to thrombocytopenia -GI prophylaxis not indicated -PT eval and treat 01/29/18 (order stopped 01/30 as patient is disoriented and fell) . <Matt Ashley - Last Filed: 01/30/18 14:13> Objective - Vital Signs/Intake and Output Vital Signs (last 24 hours): Temp Pulse Resp BP Pulse Ox 98.3 F 67 14 146/114 H 94 L 01/30/18 12:00 01/30/18 00:39 01/30/18 00:39 01/30/18 12:00 01/30/18 00:39 Intake and Output: 01/30/18 01/30/18 06:59 18:59 Intake Total 910 650 Output Total 1600 650 Balance -690 0 - Medications Medications: Current Medications Acetaminophen (Tylenol 325mg Tab) 650 mg PO Q6 PRN PRN Reason: Headache Last Admin: 01/29/18 08:53 Dose: 650 mg Chlordiazepoxide (Librium) 50 mg PO Q2H PRN PRN Reason: withdrawal Chlordiazepoxide (Librium) 50 mg PO Q8H ANNETTE PRN Reason: Taper Stop: 02/01/18 17:59 Last Admin: 01/30/18 10:29 Dose: 50 mg Dextrose (Dextrose 50% Inj) 0 ml IV STAT PRN; Protocol PRN Reason: Hypoglycemia Protocol Dextrose (Glutose 15) 15 gm PO ONCE PRN; Protocol PRN Reason: Hypoglycemia Protocol Escitalopram Oxalate (Lexapro) [address] [facility] Last Admin: 01/30/18 10:29 Dose: 10 mg Folic Acid (Folic Acid) [address] [facility] Last Admin: 01/30/18 10:29 Dose: 1 mg Gabapentin (Neurontin) [address] [facility] Last Admin: 01/30/18 10:29 Dose: 100 mg Glucagon (Glucagen Diagnostic Kit) 1 mg IM STAT PRN; Protocol PRN Reason: Hypoglycemia Protocol Dextrose (Dextrose 5% In Water 1000 Ml) 1,000 mls @ 0 mls/hr IV .Q0M PRN; Protocol; Per Protocol PRN Reason: Hypoglycemia Protocol Ketorolac Tromethamine (Toradol) 30 mg IV Q6 PRN PRN Reason: Pain, moderate (4-7) Last Admin: 01/28/18 09:57 Dose: 30 mg Lorazepam (Ativan) 1 mg IVP Q6H PRN PRN Reason: Anxiety Ondansetron HCl (Zofran Inj) 4 mg IVP Q6 PRN PRN Reason: Nausea/Vomiting Potassium Phos/Sodium Phos (Neutra-Phos) [address] [facility] Stop: 01/31/18 10:01 Quetiapine Fumarate (Seroquel) [address] [facility] Last Admin: 01/29/18 21:50 Dose: 100 mg Risperidone (Risperdal Tab) [address] [facility] Last Admin: 01/30/18 10:29 Dose: 1 mg Thiamine HCl (Vitamin B1 Tab) [address] [facility] Last Admin: 01/30/18 10:29 Dose: 100 mg - Labs Labs: 01/30/18 10:15 01/30/18 10:15 PT 11.3 SECONDS (9.7-12.2) 01/28/18 00:56 INR 1.01 (0.92-1.08) 01/28/18 00:56 APTT 32 SECONDS (21-34) 01/28/18 00:56 Attending/Attestation - Attestation I have personally seen and examined this patient.: Yes I have fully participated in the care of the patient.: Yes I have reviewed all pertinent clinical information, including history, physical exam and plan: Yes Notes (Text): 01/30/18 14:10 Medical attending: Patient was seen and exmained by me as well as with the resident. Reviewed the above note by the resident and agree Late last night it appears the patient may have had an episode of sam - he was walking all over the hallway of the ICU and had to be sedated. This morning he was awake however somnulent. He was following some commands however not like yesterday when he was more awake and talkative Thank you Matt Ashley
[2018-01-30 10:21] LABS: BASO % 1.1 % (0.0-2.0); EOS # 0.1 K/uL (0.0-0.7); EOS % 1.4 % (0.0-4.0); HEMOGLOBIN 12.2 g/dL (12.0-18.0); LYMPH # 1.4 K/uL (1.0-4.3); LYMPH % 37.6 % (20.0-40.0); MEAN CORPUSCULAR HEMOGLOBIN 31.2 pg (27.0-31.0); MEAN CORPUSCULAR HGB CONC 34.6 g/dL (33.0-37.0); MEAN PLATELET VOLUME 8.6 fL (7.2-11.7); MONO # 0.3 K/uL (0.0-0.8); MONO % 7.8 % (0.0-10.0); NEUT % 52.1 % (50.0-75.0); NRBC % 0.1 % (0.0-2.0); RBC 3.92 Mil/uL (4.40-5.90); RED CELL DISTRIBUTION WIDTH 17.1 % (11.5-14.5); WHITE BLOOD COUNT 3.8 K/uL (4.8-10.8)
[2018-01-30 11:00] LABS: ALB/GLOB RATIO 1.1 (1.0-2.1); ALBUMIN 4.1 g/dL (3.5-5.0); ALT/SGPT 39 U/L (21-72); AST/SGOT 70 U/L (17-59); BLOOD UREA NITROGEN 9 mg/dL (9-20); CALCIUM 9.1 mg/dl (8.6-10.4); GFR AFRICAN-AMERICAN > 60; GFR NON-AFRICAN AMERICAN > 60
[2018-01-30] MEDS: Potassium & Sodium Phosphate PO SCH ×2 (15:37→17:55)
[2018-01-31 07:38] LABS: BASO % 0.9 % (0.0-2.0); EOS # 0.1 K/uL (0.0-0.7); EOS % 1.3 % (0.0-4.0); HEMOGLOBIN 12.1 g/dL (12.0-18.0); LYMPH # 2.1 K/uL (1.0-4.3); LYMPH % 39.4 % (20.0-40.0); MEAN CELL VOLUME 90.2 fL (80.0-94.0); MEAN CORPUSCULAR HEMOGLOBIN 31.3 pg (27.0-31.0); MEAN CORPUSCULAR HGB CONC 34.7 g/dL (33.0-37.0); MEAN PLATELET VOLUME 8.2 fL (7.2-11.7); MONO # 0.4 K/uL (0.0-0.8); MONO % 7.8 % (0.0-10.0); NEUT # 2.7 K/uL (1.8-7.0); NEUT % 50.6 % (50.0-75.0); NRBC % 0.1 % (0.0-2.0); RBC 3.87 Mil/uL (4.40-5.90); RED CELL DISTRIBUTION WIDTH 16.9 % (11.5-14.5); WHITE BLOOD COUNT 5.3 K/uL (4.8-10.8)
[2018-01-31 08:14] LABS: ALB/GLOB RATIO 1.2 (1.0-2.1); ALBUMIN 4.3 g/dL (3.5-5.0); ALT/SGPT 43 U/L (21-72); AST/SGOT 77 U/L (17-59); BLOOD UREA NITROGEN 9 mg/dL (9-20); CALCIUM 9.3 mg/dl (8.6-10.4); GFR AFRICAN-AMERICAN > 60; GFR NON-AFRICAN AMERICAN > 60
[2018-01-31] MEDS ORDERED: Potassium Chloride 20 mEq ER Tab PO ONE (08:29)
--- NOTE | 2018-01-31 08:33 | CP.PCM.PN ---
<Delfina Schultz - Last Filed: 01/31/18 15:57> Subjective - Date & Time of Evaluation Date of Evaluation: 01/31/18 Time of Evaluation: 07:00 - Subjective Subjective: Medicine Progress Note: Patient was seen and examined at bedside in the AM. Per nurse no acute events overnight. Patient is only oriented to self. Patient believes he is in [place] and is not able to recall the correct date or time. Objective - Vital Signs/Intake and Output Vital Signs (last 24 hours): Temp Pulse Resp BP Pulse Ox 98.2 F 74 20 154/100 H 98 01/31/18 08:16 01/31/18 08:16 01/31/18 08:16 01/31/18 08:16 01/31/18 08:16 Intake and Output: 01/31/18 01/31/18 06:59 18:59 Intake Total 200 Balance 200 - Medications Medications: Current Medications Acetaminophen (Tylenol 325mg Tab) 650 mg PO Q6 PRN PRN Reason: Headache Last Admin: 01/29/18 08:53 Dose: 650 mg Chlordiazepoxide (Librium) 50 mg PO Q2H PRN PRN Reason: withdrawal Chlordiazepoxide (Librium) 50 mg PO Q12H ANNETTE PRN Reason: Taper Stop: 02/01/18 17:59 Last Admin: 01/31/18 07:15 Dose: 50 mg Dextrose (Dextrose 50% Inj) 0 ml IV STAT PRN; Protocol PRN Reason: Hypoglycemia Protocol Dextrose (Glutose 15) 15 gm PO ONCE PRN; Protocol PRN Reason: Hypoglycemia Protocol Escitalopram Oxalate (Lexapro) 10 mg PO DAILY [facility] Last Admin: 01/30/18 10:29 Dose: 10 mg Folic Acid (Folic Acid) 1 mg PO DAILY [facility] Last Admin: 01/30/18 10:29 Dose: 1 mg Gabapentin (Neurontin) 100 mg PO BID [facility] Last Admin: 01/30/18 17:53 Dose: 100 mg Glucagon (Glucagen Diagnostic Kit) 1 mg IM STAT PRN; Protocol PRN Reason: Hypoglycemia Protocol Ketorolac Tromethamine (Toradol) 30 mg IV Q6 PRN PRN Reason: Pain, moderate (4-7) Last Admin: 01/28/18 09:57 Dose: 30 mg Lorazepam (Ativan) 1 mg IVP Q6H PRN PRN Reason: Anxiety Last Admin: 01/31/18 02:28 Dose: 1 mg Ondansetron HCl (Zofran Inj) 4 mg IVP Q6 PRN PRN Reason: Nausea/Vomiting Potassium Chloride (K-Dur 20 Meq Er Tab) 40 meq PO ONCE ONE Stop: 01/31/18 08:30 Potassium Phos/Sodium Phos (Neutra-Phos) 1 pkt PO TID [facility] Stop: 01/31/18 10:01 Last Admin: 01/30/18 17:55 Dose: 1 pkt Quetiapine Fumarate (Seroquel) 100 mg PO HS [facility] Last Admin: 01/30/18 21:46 Dose: 100 mg Risperidone (Risperdal Tab) 1 mg PO BID [facility] Last Admin: 01/30/18 17:53 Dose: 1 mg Thiamine HCl (Vitamin B1 Tab) 100 mg PO DAILY [facility] Last Admin: 01/30/18 10:29 Dose: 100 mg - Labs Labs: 01/31/18 07:12 01/31/18 07:12 PT 11.3 SECONDS (9.7-12.2) 01/28/18 00:56 INR 1.01 (0.92-1.08) 01/28/18 00:56 APTT 32 SECONDS (21-34) 01/28/18 00:56 - Constitutional Appears: No Acute Distress - Head Exam Head Exam: ATRAUMATIC, NORMAL INSPECTION - Eye Exam Eye Exam: EOMI, Normal appearance - ENT Exam ENT Exam: Mucous Membranes Moist - Respiratory Exam Respiratory Exam: Clear to Ausculation Bilateral, NORMAL BREATHING PATTERN - Cardiovascular Exam Cardiovascular Exam: REGULAR RHYTHM, RRR, +S1, +S2 - GI/Abdominal Exam GI & Abdominal Exam: Soft, Normal Bowel Sounds. absent: Tenderness - Extremities Exam Extremities Exam: Normal Inspection. absent: Pedal Edema - Neurological Exam Neurological Exam: Alert, Awake. absent: Oriented x3 - Psychiatric Exam Psychiatric exam: Normal Affect Assessment and Plan - Assessment and Plan (Free Text) Assessment: 1.) Etoh Withdrawal - Medications: * Ativan 1mg IVP Q6H PRN * 50mg Q6H ANNETTE Librium; hold if lethargic * 50mg Q2H PRN Librium; hold if lethargic * Thiamine and folate daily -CIWA/Seizure precautions -EKG NSR with no QTC prolongation - Ammonia: 27 -AST elevated -Lipase 304 2.) Paranoid Schizophrenia with suicidality 01/30: Patient was previously agitated on the evening of 01/30/18; Patient was placed on a 1:1 sitter -Psychiatry consult (Dr. Ferro) - help appreciated -continue risperdal and gabapentin; will hold trazodone as it lowers seizure threshold -1:1 for suicidality 3.) History of recent fall with head trauma -head CT/neck WNL; please refer to full report -maxillofacial CT WNL; please see full report 4.) Lactic acidosis with gap -resolving but will continue to monitor -100ml/hr NS 5.) Thrombocytopenia - Platelet count stable at 47 - Most likely 2/2 to EtOH abuse - Continue to monitor 6.) Anemia -Iron 225, TIBC 296, % Sat 76 7.) Chest Pain - resolved -MAEVE negative; has had for more than 1 month -echo 3 months ago was WNL; no abnormalities; please refer to full report -stress test was also normal 8.) Electrolyte Imbalance 01/31: K repleted 01/30: Phosph improved to 2.2. Neutraphos TID (3 more packets total) 01/29: Hypophosphatemia, P=1.0; Neutraphos TID - re-evaluate in AM. - Continue to monitor 9.) Prophylaxis -SCD; chemical prophylaxis not indicated 2 to thrombocytopenia -GI prophylaxis not indicated -PT eval and treat 01/29/18 (order stopped 01/30 as patient is disoriented and fell) . Disposition: Patient to be transferred to the psych floor when there is a bed available Case discussed with Dr. Andrés Schultz PGY-1 <Danita Bowen - Last Filed: 01/31/18 18:40> Objective - Vital Signs/Intake and Output Vital Signs (last 24 hours): Temp Pulse Resp BP Pulse Ox 98.1 F 93 H 20 124/80 99 01/31/18 16:19 01/31/18 16:19 01/31/18 16:19 01/31/18 16:19 01/31/18 16:19 Intake and Output: 01/31/18 01/31/18 06:59 18:59 Intake Total 200 Balance 200 - Medications Medications: Current Medications Acetaminophen (Tylenol 325mg Tab) 650 mg PO Q6 PRN PRN Reason: Headache Last Admin: 01/29/18 08:53 Dose: 650 mg Chlordiazepoxide (Librium) 50 mg PO Q2H PRN PRN Reason: withdrawal Chlordiazepoxide (Librium) 50 mg PO Q24H ANNETTE PRN Reason: Taper Stop: 02/01/18 17:59 Last Admin: 01/31/18 18:16 Dose: 50 mg Dextrose (Dextrose 50% Inj) 0 ml IV STAT PRN; Protocol PRN Reason: Hypoglycemia Protocol Dextrose (Glutose 15) 15 gm PO ONCE PRN; Protocol PRN Reason: Hypoglycemia Protocol Escitalopram Oxalate (Lexapro) 10 mg PO DAILY [facility] Last Admin: 01/31/18 09:11 Dose: 10 mg Folic Acid (Folic Acid) 1 mg PO DAILY [facility] Last Admin: 01/31/18 09:11 Dose: 1 mg Gabapentin (Neurontin) 100 mg PO BID [facility] Last Admin: 01/31/18 18:16 Dose: 100 mg Glucagon (Glucagen Diagnostic Kit) 1 mg IM STAT PRN; Protocol PRN Reason: Hypoglycemia Protocol Ketorolac Tromethamine (Toradol) 30 mg IV Q6 PRN PRN Reason: Pain, moderate (4-7) Last Admin: 01/28/18 09:57 Dose: 30 mg Lorazepam (Ativan) 1 mg IVP Q6H PRN PRN Reason: Anxiety Last Admin: 01/31/18 02:28 Dose: 1 mg Ondansetron HCl (Zofran Inj) 4 mg IVP Q6 PRN PRN Reason: Nausea/Vomiting Quetiapine Fumarate (Seroquel) 100 mg PO HS [facility] Last Admin: 01/30/18 21:46 Dose: 100 mg Risperidone (Risperdal Tab) 1 mg PO BID [facility] Last Admin: 01/31/18 18:16 Dose: 1 mg Thiamine HCl (Vitamin B1 Tab) 100 mg PO DAILY [facility] Last Admin: 01/31/18 09:11 Dose: 100 mg - Labs Labs: 01/31/18 07:12 01/31/18 07:12 PT 11.3 SECONDS (9.7-12.2) 01/28/18 00:56 INR 1.01 (0.92-1.08) 01/28/18 00:56 APTT 32 SECONDS (21-34) 01/28/18 00:56 Attending/Attestation - Attestation I have personally seen and examined this patient.: Yes I have fully participated in the care of the patient.: Yes I have reviewed all pertinent clinical information, including history, physical exam and plan: Yes Notes (Text): 53 years old male with history of schizophrenia and alcohol abuse brought in intoxicated 1. )Alcohol withdrawal 2.) Paranoid Schizophrenia with suicidality Patient was seen and examined. Patient is confused Discussed with the resident. We will follow up with psychiatrist.continue 1:1 I agree with the documentation of the resident's assessment and the plan.
[2018-01-31] MEDS: Potassium & Sodium Phosphate PO SCH (09:17)
[2018-01-31 22:11] LABS: CK-MB 0.76 ng/mL (0.0-3.38)
[2018-02-01 07:48] LABS: BASO # 0.1 K/uL (0.0-0.2); EOS # 0.1 K/uL (0.0-0.7); HEMOGLOBIN 11.5 g/dL (12.0-18.0); LYMPH # 2.5 K/uL (1.0-4.3); LYMPH % 47.5 % (20.0-40.0); MEAN CELL VOLUME 92.1 fL (80.0-94.0); MEAN CORPUSCULAR HEMOGLOBIN 31.1 pg (27.0-31.0); MEAN CORPUSCULAR HGB CONC 33.7 g/dL (33.0-37.0); MEAN PLATELET VOLUME 8.3 fL (7.2-11.7); MONO # 0.5 K/uL (0.0-0.8); MONO % 9.4 % (0.0-10.0); NEUT # 2.2 K/uL (1.8-7.0); NEUT % 41.1 % (50.0-75.0); NRBC % 0.1 % (0.0-2.0); RBC 3.69 Mil/uL (4.40-5.90); RED CELL DISTRIBUTION WIDTH 17.4 % (11.5-14.5); WHITE BLOOD COUNT 5.3 K/uL (4.8-10.8)
[2018-02-01 08:09] LABS: ALB/GLOB RATIO 1.2 (1.0-2.1); ALBUMIN 3.8 g/dL (3.5-5.0); ALT/SGPT 41 U/L (21-72); AST/SGOT 55 U/L (17-59); BLOOD UREA NITROGEN 16 mg/dL (9-20); CALCIUM 9.5 mg/dl (8.6-10.4); GFR AFRICAN-AMERICAN > 60; GFR NON-AFRICAN AMERICAN > 60
[2018-02-01] MEDS ORDERED: Potassium Chloride 10 mEq ER Tab PO ONE ×2 (09:43→11:00)
[2018-02-01] MEDS ORDERED: Potassium Chloride 20 mEq ER Tab PO ONE (11:00)
--- NOTE | 2018-02-01 11:25 | CP.PCM.DIS ---
Provider - Provider Date of Admission: 01/27/18 22:59 Attending physician: Danita Bowen MD Hospital Course - Lab Results Lab Results: Micro Results 01/30/18 15:37 Naris MRSA Culture (Admit) - Final MRSA NOT DETECTED 01/28/18 06:00 Nose MRSA Culture (Admit) - Final MRSA NOT DETECTED Most Recent Lab Values WBC 5.3 K/uL (4.8-10.8) 02/01/18 07:31 RBC 3.69 Mil/uL (4.40-5.90) L 02/01/18 07:31 Hgb 11.5 g/dL (12.0-18.0) L 02/01/18 07:31 Hct 34.0 % (35.0-51.0) L 02/01/18 07:31 MCV 92.1 fL (80.0-94.0) 02/01/18 07:31 MCH 31.1 pg (27.0-31.0) H 02/01/18 07:31 MCHC 33.7 g/dL (33.0-37.0) 02/01/18 07:31 RDW 17.4 % (11.5-14.5) H 02/01/18 07:31 Plt Count 57 K/uL (130-400) L 02/01/18 07:31 MPV 8.3 fL (7.2-11.7) 02/01/18 07:31 Neut % (Auto) 41.1 % (50.0-75.0) L 02/01/18 07:31 Lymph % (Auto) 47.5 % (20.0-40.0) H 02/01/18 07:31 [place] % (Auto) 9.4 % (0.0-10.0) 02/01/18 07:31 Eos % (Auto) 1.0 % (0.0-4.0) 02/01/18 07:31 Baso % (Auto) 1.0 % (0.0-2.0) 02/01/18 07:31 Neut # (Auto) 2.2 K/uL (1.8-7.0) 02/01/18 07:31 Lymph # (Auto) 2.5 K/uL (1.0-4.3) 02/01/18 07:31 [place] # (Auto) 0.5 K/uL (0.0-0.8) 02/01/18 07:31 Eos # (Auto) 0.1 K/uL (0.0-0.7) 02/01/18 07:31 Baso # (Auto) 0.1 K/uL (0.0-0.2) 02/01/18 07:31 Differential Comment 02/01/18 07:31 PT 11.3 SECONDS (9.7-12.2) 01/28/18 00:56 INR 1.01 (0.92-1.08) 01/28/18 00:56 APTT 32 SECONDS (21-34) 01/28/18 00:56 Puncture Site Rradial 01/27/18 18:25 pCO2 21 mm/Hg (35-45) L 01/27/18 18:25 pO2 24 mm/Hg (30-55) L 01/27/18 21:52 HCO3 13.0 mmol/L (21-28) L 01/27/18 18:25 ABG pH 7.27 (7.35-7.45) L 01/27/18 18:25 ABG Total CO2 10.2 mmol/L (22-28) L 01/27/18 18:25 ABG O2 Saturation 97.9 % (95-98) 01/27/18 18:25 ABG Base Excess -15.2 mmol/L (-2.0-3.0) L 01/27/18 18:25 Star Test Os 01/27/18 18:25 ABG Potassium 3.7 mmol/L (3.6-5.2) 01/27/18 18:25 VBG pH 7.33 (7.32-7.43) 01/27/18 21:52 VBG pCO2 27 mmHg (40-60) L 01/27/18 21:52 VBG HCO3 15.4 mmol/L 01/27/18 21:52 VBG Total CO2 15.0 mmol/L (22-28) L 01/27/18 21:52 VBG O2 Sat (Calc) 44.5 % (40-65) 01/27/18 21:52 VBG Base Excess -10.1 mmol/L (0.0-2.0) L 01/27/18 21:52 VBG Potassium 4.6 mmol/L (3.6-5.2) 01/27/18 21:52 A-a O2 Difference 29.0 mm/Hg 01/27/18 18:25 Respiratory Index 0.3 01/27/18 18:25 Sodium 134.0 mmol/l (132-148) 01/27/18 21:52 Chloride 100.0 mmol/L (98-107) 01/27/18 21:52 Glucose 84 mg/dl (75-110) 01/27/18 21:52 Lactate 3.8 mmol/L (0.7-2.1) H 01/27/18 21:52 FiO2 21.0 % 01/27/18 18:25 Crit Value Called To 01/27/18 18:25 Crit Value Called By Iliana vila rcp 01/27/18 18:25 Crit Value Read Back Y 01/27/18 18:25 Blood Gas Notified Time 1833 01/27/18 18:25 Sodium 142 mmol/L (132-148) 02/01/18 07:31 Potassium 3.5 mmol/L (3.6-5.2) L 02/01/18 07:31 Chloride 102 mmol/L (98-107) 02/01/18 07:31 Carbon Dioxide 26 mmol/L (22-30) 02/01/18 07:31 Anion Gap 17 (10-20) 02/01/18 07:31 BUN 16 mg/dL (9-20) 02/01/18 07:31 Creatinine 0.8 mg/dL (0.8-1.5) 02/01/18 07:31 Est GFR ( Amer) > 60 02/01/18 07:31 Est GFR (Non-Af Amer) > 60 02/01/18 07:31 POC Glucose (mg/dL) 111 mg/dL (65-110) H 02/01/18 06:39 Random Glucose 97 mg/dL (75-110) 02/01/18 07:31 Serum Osmolality 290 mosm/kg (272-300) 01/28/18 00:56 Calcium 9.5 mg/dl (8.6-10.4) 02/01/18 07:31 Phosphorus 4.0 mg/dL (2.5-4.5) 02/01/18 07:31 Magnesium 1.7 mg/dL (1.6-2.3) 02/01/18 07:31 Iron 225 ug/dL (49-181) H 01/28/18 06:28 TIBC 296 ug/dL (250-450) 01/28/18 06:28 % Saturation 77 (20-55) H 01/28/18 06:28 Total Bilirubin 0.5 mg/dL (0.2-1.3) 02/01/18 07:31 AST 55 U/L (17-59) 02/01/18 07:31 ALT 41 U/L (21-72) 02/01/18 07:31 Alkaline Phosphatase 85 U/L (38-126) 02/01/18 07:31 Ammonia 27 umol/L (9-33) 01/31/18 10:44 Total Creatine Kinase 345 U/L (55-170) H 01/31/18 21:34 CK-MB (Mass) 0.76 ng/mL (0.0-3.38) 01/31/18 21:34 Troponin I < 0.0120 ng/mL (0.00-0.120) 01/31/18 21:34 Total Protein 7.0 g/dL (6.3-8.3) 02/01/18 07:31 Albumin 3.8 g/dL (3.5-5.0) 02/01/18 07:31 Globulin 3.2 gm/dL (2.2-3.9) 02/01/18 07:31 Albumin/Globulin Ratio 1.2 (1.0-2.1) 02/01/18 07:31 Lipase 304 U/L (23-300) H 01/28/18 06:28 Vitamin B12 401 pg/mL (239-931) 01/28/18 06:28 Arterial Blood Potassium 3.7 mmol/L (3.6-5.2) 01/27/18 18:25 Venous Blood Potassium 4.6 mmol/L (3.6-5.2) 01/27/18 21:52 Urine Color Yellow (YELLOW) 01/27/18 21:20 Urine Clarity Clear (Clear) 01/27/18 21:20 Urine pH 5.0 (5.0-8.0) 01/27/18 21:20 Ur Specific [place] 1.018 (1.003-1.030) 01/27/18 21:20 Urine Protein Negative mg/dL (NEGATIVE) 01/27/18 21:20 Urine Glucose (UA) Normal mg/dL (Normal) 01/27/18 21:20 Urine Ketones 2+ mg/dL (NEGATIVE) H 01/27/18 21:20 Urine Blood Trace (NEGATIVE) H 01/27/18 21:20 Urine Nitrate Negative (NEGATIVE) 01/27/18 21:20 Urine Bilirubin Negative (NEGATIVE) 01/27/18 21:20 Urine Urobilinogen Normal mg/dL (0.2-1.0) 01/27/18 21:20 Ur Leukocyte Esterase Neg [place]/uL (Negative) 01/27/18 21:20 Urine WBC (Auto) 1 /hpf (0-5) 01/27/18 21:20 Urine RBC (Auto) 2 /hpf (0-3) 01/27/18 21:20 Ur Squamous Epith Cells < 1 /hpf (0-5) 01/27/18 21:20 Urine Bacteria Rare (<OCC) 01/27/18 21:20 Salicylates < 1.0 mg/dL 1 01/27/18 17:16 Urine Opiates Screen Negative (NEGATIVE) 01/27/18 21:20 Urine Methadone Screen Negative (NEGATIVE) 01/27/18 21:20 Acetaminophen < 10.0 ug/mL (10.0-30.0) L 01/27/18 17:16 Ur Barbiturates Screen Negative (NEGATIVE) 01/27/18 21:20 Ur Phencyclidine Scrn Negative (NEGATIVE) 01/27/18 21:20 Ur Amphetamines Screen Negative (NEGATIVE) 01/27/18 21:20 U Benzodiazepines Scrn Negative (NEGATIVE) 01/27/18 21:20 U Oth Cocaine Metabols Negative (NEGATIVE) 01/27/18 21:20 U Cannabinoids Screen Negative (NEGATIVE) 01/27/18 21:20 Alcohol, Quantitative 10 mg/dl (0-10) 01/28/18 00:56 Serum Ketones Trace (NEGATIVE) 01/27/18 18:44 RPR Nonreactive (NONREACTIVE) 01/28/18 06:28 HIV 1&2 Antibody Screen Negative (NEGATIVE) 01/28/18 06:28 Discharge Exam - Head Exam Head Exam: ATRAUMATIC, NORMAL INSPECTION Discharge Plan - Follow Up Plan Condition: SERIOUS Disposition: HOME/ ROUTINE
--- NOTE | 2018-02-01 12:18 | CARD ---
APPROVED REPORT EKG Measurement Heart [id number] <Conclusion> Normal sinus rhythm Normal ECG
--- NOTE | 2018-02-01 12:29 | CP.PCM.PN ---
<Delfina Schultz - Last Filed: 02/01/18 13:26> Subjective - Date & Time of Evaluation Date of Evaluation: 02/01/18 Time of Evaluation: 07:00 - Subjective Subjective: Medicine Progress Note: Patient was seen and examined at bedside in the AM. Overnight the patient complained of chest pain and was examined and evaluated. This morning he complained that his chest is tender when pressed. Patient was alert and oriented to self and time. Patient stated he was in [facility] however he stated he was [place]. Patient was more alert and aware today and stated he wanted to go to the psychiatry floor. Objective - Vital Signs/Intake and Output Vital Signs (last 24 hours): Temp Pulse Resp BP Pulse Ox 97.9 F 78 20 109/76 100 02/01/18 07:30 02/01/18 07:30 02/01/18 07:30 02/01/18 07:30 02/01/18 07:30 Intake and Output: 02/01/18 02/01/18 06:59 18:59 Intake Total 400 Balance 400 - Medications Medications: Current Medications Acetaminophen (Tylenol 325mg Tab) 650 mg PO Q6 PRN PRN Reason: Headache Last Admin: 01/29/18 08:53 Dose: 650 mg Chlordiazepoxide (Librium) 50 mg PO Q2H PRN PRN Reason: withdrawal Chlordiazepoxide (Librium) 50 mg PO Q24H ANNETTE PRN Reason: Taper Stop: 02/01/18 17:59 Last Admin: 01/31/18 18:16 Dose: 50 mg Dextrose (Dextrose 50% Inj) 0 ml IV STAT PRN; Protocol PRN Reason: Hypoglycemia Protocol Dextrose (Glutose 15) 15 gm PO ONCE PRN; Protocol PRN Reason: Hypoglycemia Protocol Escitalopram Oxalate (Lexapro) 10 mg PO DAILY [facility] Last Admin: 02/01/18 10:53 Dose: 10 mg Folic Acid (Folic Acid) 1 mg PO DAILY [facility] Last Admin: 02/01/18 10:53 Dose: 1 mg Gabapentin (Neurontin) 100 mg PO BID [facility] Last Admin: 02/01/18 10:52 Dose: 100 mg Glucagon (Glucagen Diagnostic Kit) 1 mg IM STAT PRN; Protocol PRN Reason: Hypoglycemia Protocol Ketorolac Tromethamine (Toradol) 30 mg IV Q6 PRN PRN Reason: Pain, moderate (4-7) Last Admin: 01/28/18 09:57 Dose: 30 mg Lorazepam (Ativan) 1 mg IVP Q6H PRN PRN Reason: Anxiety Last Admin: 01/31/18 02:28 Dose: 1 mg Ondansetron HCl (Zofran Inj) 4 mg IVP Q6 PRN PRN Reason: Nausea/Vomiting Quetiapine Fumarate (Seroquel) 100 mg PO HS [facility] Last Admin: 01/31/18 21:29 Dose: 100 mg Risperidone (Risperdal Tab) 1 mg PO BID [facility] Last Admin: 02/01/18 10:52 Dose: 1 mg Thiamine HCl (Vitamin B1 Tab) 100 mg PO DAILY [facility] Last Admin: 02/01/18 10:53 Dose: 100 mg - Labs Labs: 02/01/18 07:31 02/01/18 07:31 PT 11.3 SECONDS (9.7-12.2) 01/28/18 00:56 INR 1.01 (0.92-1.08) 01/28/18 00:56 APTT 32 SECONDS (21-34) 01/28/18 00:56 - Constitutional Appears: No Acute Distress - Head Exam Head Exam: ATRAUMATIC, NORMAL INSPECTION - Eye Exam Eye Exam: EOMI, Normal appearance - ENT Exam ENT Exam: Mucous Membranes Moist - Respiratory Exam Respiratory Exam: Clear to Ausculation Bilateral, NORMAL BREATHING PATTERN - Cardiovascular Exam Cardiovascular Exam: REGULAR RHYTHM, +S1, +S2. absent: Murmur Additional comments: Tenderness to chest palpation - GI/Abdominal Exam GI & Abdominal Exam: Soft, Normal Bowel Sounds. absent: Tenderness - Extremities Exam Extremities Exam: Normal Inspection. absent: Pedal Edema - Neurological Exam Neurological Exam: Alert, Awake - Psychiatric Exam Psychiatric exam: Normal Affect, Normal Mood - Skin Skin Exam: Normal Color Assessment and Plan - Assessment and Plan (Free Text) Assessment: Disposition: Patient was transferred to [facility] 02/01/18 1.) Etoh Withdrawal - Medications: * Ativan 1mg IVP Q6H PRN * 50mg Q6H ANNETTE Librium; hold if lethargic * 50mg Q2H PRN Librium; hold if lethargic * Thiamine and folate daily -CIWA/Seizure precautions -EKG NSR with no QTC prolongation - Ammonia: 27 -AST elevated -Lipase 304 2.) Paranoid Schizophrenia with suicidality 01/30: Patient was previously agitated on the evening of 01/30/18; Patient was placed on a 1:1 sitter -Psychiatry consult (Dr. Ferro) - help appreciated -continue risperdal and gabapentin; will hold trazodone as it lowers seizure threshold -1:1 for suicidality 3.) History of recent fall with head trauma -head CT/neck WNL; please refer to full report -maxillofacial CT WNL; please see full report 4.) Lactic acidosis with gap - secondary to Etoh abuse - resolved 5.) Thrombocytopenia - Platelet count stable at 47 - Most likely 2/2 to EtOH abuse - Continue to monitor 6.) Anemia -Iron 225, TIBC 296, % Sat 76 7.) Chest Pain - secondary to costochondritis -MAEVE negative 01/28/18 and 01/31/18; has had for more than 1 month -echo 3 months ago was WNL; no abnormalities; please refer to full report -stress test was also normal 8.) Electrolyte Imbalance K repleted 01/30: Phosph improved to 2.2. Neutraphos TID (3 more packets total) 01/29: Hypophosphatemia, P=1.0; Neutraphos TID - re-evaluate in AM. - Continue to monitor 9.) Prophylaxis -SCD; chemical prophylaxis not indicated 10/29 to thrombocytopenia -GI prophylaxis not indicated -PT eval and treat 01/29/18 (order stopped 01/30 as patient is disoriented and fell) . Case discussed with Dr. Andrés Schultz PGY-1 <Danita Bowen - Last Filed: 02/01/18 17:17> Objective - Vital Signs/Intake and Output Vital Signs (last 24 hours): Temp Pulse Resp BP Pulse Ox 97.4 F L 83 20 125/84 99 02/01/18 15:00 02/01/18 15:00 02/01/18 15:00 02/01/18 15:00 02/01/18 15:00 Intake and Output: 02/01/18 02/01/18 06:59 18:59 Intake Total 400 Balance 400 - Medications Medications: Current Medications Acetaminophen (Tylenol 325mg Tab) 650 mg PO Q6 PRN PRN Reason: Headache Last Admin: 01/29/18 08:53 Dose: 650 mg Chlordiazepoxide (Librium) 50 mg PO Q2H PRN PRN Reason: withdrawal Chlordiazepoxide (Librium) 50 mg PO Q24H [facility] PRN Reason: Taper Stop: 02/01/18 17:59 Last Admin: 01/31/18 18:16 Dose: 50 mg Escitalopram Oxalate (Lexapro) 10 mg PO DAILY [facility] Last Admin: 02/01/18 10:53 Dose: 10 mg Folic Acid (Folic Acid) 1 mg PO DAILY [facility] Last Admin: 02/01/18 10:53 Dose: 1 mg Gabapentin (Neurontin) 100 mg PO BID [facility] Last Admin: 02/01/18 10:52 Dose: 100 mg Quetiapine Fumarate (Seroquel) 100 mg PO HS [facility] Last Admin: 01/31/18 21:29 Dose: 100 mg Risperidone (Risperdal Tab) 1 mg PO BID [facility] Last Admin: 02/01/18 10:52 Dose: 1 mg Thiamine HCl (Vitamin B1 Tab) 100 mg PO DAILY [facility] Last Admin: 02/01/18 10:53 Dose: 100 mg - Labs Labs: 02/01/18 07:31 02/01/18 07:31 PT 11.3 SECONDS (9.7-12.2) 01/28/18 00:56 INR 1.01 (0.92-1.08) 01/28/18 00:56 APTT 32 SECONDS (21-34) 01/28/18 00:56 Attending/Attestation - Attestation I have personally seen and examined this patient.: Yes I have fully participated in the care of the patient.: Yes I have reviewed all pertinent clinical information, including history, physical exam and plan: Yes Notes (Text): Seen and examined.alert and oriented,no complain Discussed with the resident. I agree with the documentation. WE will sign off and transfer patient to Psychiatry service Patient was transferred to [facility] 02/01/18
--- NOTE | 2018-02-01 13:45 | PCM.PYCHPN ---
Psychiatric Progress Note - Psychiatric Progress Note Patient seen today, length of contact: 15 MIN Patient Chief Complaint: I am hearing voices. Problems Identified/Issues Discussed: Patient seen and evaluated, chart reviewed and discussed with the nurse. Patient remained disorganized and internally preoccupied. Patient remained isolated, confined and withdrawn. He still reports of hearing voices. Patient still appears paranoid and delusional. He reports depressed mood and remained isolated and withdrawn. He is taking medication and denies any side effects. Symptoms are improving but she needs more time for stabilization. Supportive therapy and psychoeducation were given. Medication Change: Yes Medical Record Reviewed: Yes Mental Status Examination - Cognitive Function Orientation: Person, Place, Situation, Time Memory: Intact Attention: WNL Concentration: Poor Association: Loose Fund of Knowledge: WNL - Mood Mood: Depressed, Anxious - Affect Affect: Blunted - Speech Speech: Soft - Formal Thought Process Formal Thought Process: Hallucinations, Delusions, Paranoia - Suicidal Ideation Suicidal Ideation: No - Homicidal Ideation Homicidal Ideation: No Goal/Treatment Plan - Goal/Treatment Plan Need for Continued Stay: Severe depression anxiety, Severe functional impairment Progress Toward Problem(s) and Goals/Treatment Plan: Schizoaffective d/o - depressed Alcohol withdrawal Alcohol use d/o - severe Librium detox As needed medications Gabapentin for augmentation if needed All risks, benefits and alternatives of medications, including no medications, discussed and the patient understood and agreed. Supportive therapy and psychoeducation [place] for abstinence Encourage MAT (antabuse, naltrexone), rehab or IOP Attend self-help groups as well Lexapro for depression Seroquel for schizoaffective d/o but when he is less sedated CBT and support - Smoking Cessation Smoking Cessation Initiated: No
--- NOTE | 2018-02-01 17:12 | PCM.BM ---
<Yesenia Healy - Last Filed: 02/01/18 17:10> Treatment Plan Problems - Problems identified on initial assessmt Depression Date Initiated: 02/01/18 Time Initiated: 17:11 Assessment reference: NA Status: Active Suicidal Ideation Date Initiated: 02/01/18 Time Initiated: 17:11 Assessment reference: NA Status: Monitor Treatment assets and liabiliti Patient Assests: cooperative, ADL independent, negotiates basic needs, cognitively intact Patient Liabilities: substance abuse - Milieu Protocol Maintain good personal hygiene: daily Encourage regular showers, every shift Remind patient to perform daily oral care, every shift Assist patient to perform ADL's Maintain personal safety: every shift Educate patient to report safety concerns to staff, every shift Monitor environment for contraband/sharps Medication safety: Monitor for expected outcome, potential side effects: every shift, Assess barriers to learning: every shift, Assess readiness for medication education: every shift Milieu Narrative: Librium detox As needed medications Gabapentin for augmentation if needed All risks, benefits and alternatives of medications, including no medications, discussed and the patient understood and agreed. Supportive therapy and psychoeducation [place] for abstinence Encourage MAT (antabuse, naltrexone), rehab or IOP Attend self-help groups as well Lexapro for depression Seroquel for schizoaffective d/o but when he is less sedated CBT and support 34 min Discharge/Continuing Care - Treatment Team Participation Patient/Family/SO Statement: Librium detox As needed medications Gabapentin for augmentation if needed All risks, benefits and alternatives of medications, including no medications, discussed and the patient understood and agreed. Supportive therapy and psychoeducation [place] for abstinence Encourage MAT (antabuse, naltrexone), rehab or IOP Attend self-help groups as well Lexapro for depression Seroquel for schizoaffective d/o but when he is less sedated CBT and support 34 min <Kinza Gold - Last Filed: 02/02/18 11:02> - Diagnosis (1) Major depressive disorder, recurrent, severe with psychotic features Status: Acute Interventions: 02/02/18 11:03 * Assess/adjust medications daily and /or as needed * See patient on an individual basis 7x/week to assess symptoms of depression * Monitor for side effects & effectiveness of medications * (2) Alcohol withdrawal Status: Acute Interventions: 02/02/18 11:03 * Assess 7x/week regarding severity of withdrawal * Educate regarding risks, benefits, side effects and alternatives of medications * Use Motivational Interviewing for abstinence * Use CBT for relapse prevention * Medication management for withdrawal symptoms * Encourage medication assisted treatment * <Cayla Sanchez - Last Filed: 02/02/18 11:47> Family Contact Family involvement: Famliy/SO not involved - Goals for Treatment Patient goals for treatment: "I need help." Discharge/Continuing Care - Education Needs Education Needs: Patient Medication, Patient Coping Skills - Discharge Discharge Criteria: Tolerates medication w/o severe side effects, Reduction of target symptoms Discharge to:: Home - Treatment Team Participation Discussed with Family/SO: No Was Patient/Family/SO present at Treatment Team Meeting: Yes
[2018-02-02 08:06] LABS: BASO % 0.5 % (0.0-2.0); EOS % 0.6 % (0.0-4.0); HEMOGLOBIN 13.2 g/dL (12.0-18.0); LYMPH # 1.7 K/uL (1.0-4.3); LYMPH % 22.8 % (20.0-40.0); MEAN CELL VOLUME 92.3 fL (80.0-94.0); MEAN CORPUSCULAR HEMOGLOBIN 32.1 pg (27.0-31.0); MEAN CORPUSCULAR HGB CONC 34.8 g/dL (33.0-37.0); MEAN PLATELET VOLUME 8.1 fL (7.2-11.7); MONO # 0.8 K/uL (0.0-0.8); MONO % 10.1 % (0.0-10.0); NRBC % 0.2 % (0.0-2.0); RBC 4.11 Mil/uL (4.40-5.90); RED CELL DISTRIBUTION WIDTH 17.7 % (11.5-14.5); WHITE BLOOD COUNT 7.6 K/uL (4.8-10.8)
[2018-02-02 08:29] LABS: ALB/GLOB RATIO 1.1 (1.0-2.1); ALBUMIN 4.8 g/dL (3.5-5.0); ALT/SGPT 54 U/L (21-72); AST/SGOT 58 U/L (17-59); BLOOD UREA NITROGEN 22 mg/dL (9-20); CALCIUM 10.7 mg/dl (8.6-10.4); GFR AFRICAN-AMERICAN > 60; GFR NON-AFRICAN AMERICAN > 60
--- NOTE | 2018-02-02 11:01 | PCM.PYCHPN ---
Psychiatric Progress Note - Psychiatric Progress Note Patient seen today, length of contact: Patient Chief Complaint: I am feeling little better.' Problems Identified/Issues Discussed: Patient seen and evaluated, chart reviewed and discussed with the nurse. Patient reports some improvement in the voices and he appears more organized than yesterday. Patient remained isolated, confined and withdrawn. Patient still appears paranoid and delusional. He reports some improvement in his mood depressed mood as well. He is taking medication and denies any side effects. Symptoms are improving but she needs more time for stabilization. Supportive therapy and psychoeducation were given. Medication Change: Yes Medical Record Reviewed: Yes Mental Status Examination - Cognitive Function Orientation: Person, Place, Situation, Time Memory: Intact Attention: WNL Concentration: Poor Association: Loose Fund of Knowledge: WNL - Mood Mood: Depressed, Anxious - Affect Affect: Blunted - Speech Speech: Soft - Formal Thought Process Formal Thought Process: Hallucinations, Delusions, Paranoia - Suicidal Ideation Suicidal Ideation: No - Homicidal Ideation Homicidal Ideation: No Goal/Treatment Plan - Goal/Treatment Plan Need for Continued Stay: Severe depression anxiety, Severe functional impairment Progress Toward Problem(s) and Goals/Treatment Plan: Schizoaffective d/o - depressed Alcohol withdrawal Alcohol use d/o - severe Librium prn As needed medications Gabapentin for augmentation if needed All risks, benefits and alternatives of medications, including no medications, discussed and the patient understood and agreed. Supportive therapy and psychoeducation [place] for abstinence Encourage MAT (antabuse, naltrexone), rehab or IOP Attend self-help groups as well Lexapro for depression Seroquel 100 mg PO QHS Risperdal 1 mg PO BID CBT and support - Smoking Cessation Smoking Cessation Initiated: No
[2018-02-02] MEDS ORDERED: Divalproex 500 mg ER Tab PO SCH (22:00)
[2018-02-03 08:14] LABS: BASO % 0.9 % (0.0-2.0); EOS # 0.1 K/uL (0.0-0.7); EOS % 1.2 % (0.0-4.0); LYMPH # 1.9 K/uL (1.0-4.3); LYMPH % 33.9 % (20.0-40.0); MEAN CELL VOLUME 93.4 fL (80.0-94.0); MEAN CORPUSCULAR HEMOGLOBIN 31.6 pg (27.0-31.0); MEAN CORPUSCULAR HGB CONC 33.8 g/dL (33.0-37.0); MEAN PLATELET VOLUME 7.6 fL (7.2-11.7); MONO # 0.9 K/uL (0.0-0.8); MONO % 15.6 % (0.0-10.0); NEUT # 2.8 K/uL (1.8-7.0); NEUT % 48.4 % (50.0-75.0); NRBC % 0.2 % (0.0-2.0); RBC 3.79 Mil/uL (4.40-5.90); RED CELL DISTRIBUTION WIDTH 18.1 % (11.5-14.5); WHITE BLOOD COUNT 5.7 K/uL (4.8-10.8)
[2018-02-03 08:33] LABS: ALB/GLOB RATIO 1.1 (1.0-2.1); ALBUMIN 4.4 g/dL (3.5-5.0); ALT/SGPT 40 U/L (21-72); AST/SGOT 45 U/L (17-59); BLOOD UREA NITROGEN 20 mg/dL (9-20); GFR AFRICAN-AMERICAN > 60; GFR NON-AFRICAN AMERICAN > 60
--- NOTE | 2018-02-03 13:23 | PCM.PYCHPN ---
Psychiatric Progress Note - Psychiatric Progress Note Patient seen today, length of contact: Patient Chief Complaint: I am feeling little better.' Problems Identified/Issues Discussed: Patient seen and evaluated, chart reviewed and discussed with the nurse. Patient reports some improvement in the voices and he appears more organized than yesterday. Patient remained isolated, confined and withdrawn. Patient still appears paranoid and delusional. He reports some improvement in his mood depressed mood as well. He is taking medication and denies any side effects. Symptoms are improving but she needs more time for stabilization. Supportive therapy and psychoeducation were given. Medication Change: Yes Medical Record Reviewed: Yes Mental Status Examination - Cognitive Function Orientation: Person, Place, Situation, Time Memory: Intact Attention: WNL Concentration: Poor Association: Loose Fund of Knowledge: WNL - Mood Mood: Depressed, Anxious - Affect Affect: Blunted - Speech Speech: Soft - Formal Thought Process Formal Thought Process: Hallucinations, Delusions, Paranoia - Suicidal Ideation Suicidal Ideation: No - Homicidal Ideation Homicidal Ideation: No Goal/Treatment Plan - Goal/Treatment Plan Need for Continued Stay: Severe depression anxiety, Severe functional impairment Progress Toward Problem(s) and Goals/Treatment Plan: Schizoaffective d/o - depressed Alcohol withdrawal Alcohol use d/o - severe Librium prn As needed medications Gabapentin for augmentation if needed All risks, benefits and alternatives of medications, including no medications, discussed and the patient understood and agreed. Supportive therapy and psychoeducation [place] for abstinence Encourage MAT (antabuse, naltrexone), rehab or IOP Attend self-help groups as well Lexapro for depression Seroquel 100 mg PO QHS Risperdal 1 mg PO BID CBT and support
[2018-02-04 08:18] LABS: BASO # 0.1 K/uL (0.0-0.2); BASO % 1.2 % (0.0-2.0); EOS # 0.1 K/uL (0.0-0.7); EOS % 1.5 % (0.0-4.0); LYMPH # 2.6 K/uL (1.0-4.3); LYMPH % 49.4 % (20.0-40.0); MEAN CELL VOLUME 92.7 fL (80.0-94.0); MEAN CORPUSCULAR HEMOGLOBIN 31.4 pg (27.0-31.0); MEAN CORPUSCULAR HGB CONC 33.8 g/dL (33.0-37.0); MEAN PLATELET VOLUME 7.5 fL (7.2-11.7); MONO # 0.9 K/uL (0.0-0.8); MONO % 17.7 % (0.0-10.0); NEUT # 1.6 K/uL (1.8-7.0); NEUT % 30.2 % (50.0-75.0); NRBC % 0.4 % (0.0-2.0); RBC 3.82 Mil/uL (4.40-5.90); RED CELL DISTRIBUTION WIDTH 17.9 % (11.5-14.5); WHITE BLOOD COUNT 5.2 K/uL (4.8-10.8)
[2018-02-04 08:22] LABS: ALB/GLOB RATIO 1.2 (1.0-2.1); ALBUMIN 4.1 g/dL (3.5-5.0); ALT/SGPT 42 U/L (21-72); AST/SGOT 54 U/L (17-59); BLOOD UREA NITROGEN 17 mg/dL (9-20); CALCIUM 9.7 mg/dl (8.6-10.4); GFR AFRICAN-AMERICAN > 60; GFR NON-AFRICAN AMERICAN > 60
--- NOTE | 2018-02-04 10:35 | PCM.PYCHPN ---
Psychiatric Progress Note - Psychiatric Progress Note Patient seen today, length of contact: 15 min Patient Chief Complaint: I am feeling little better.' Problems Identified/Issues Discussed: Patient seen and evaluated, chart reviewed and discussed with the nurse. Patient reports some improvement in the paranoia and AH. He remained isolated, confined and withdrawn but reports improvement in his mood. He is taking medication and denies any side effects. Symptoms are improving but he needs more time for stabilization. Supportive therapy and psychoeducation were given. Medication Change: Yes Medical Record Reviewed: Yes Mental Status Examination - Cognitive Function Orientation: Person, Place, Situation, Time Memory: Intact Attention: WNL Concentration: Poor Association: Loose Fund of Knowledge: WNL - Mood Mood: Depressed, Anxious - Affect Affect: Blunted - Speech Speech: Soft - Formal Thought Process Formal Thought Process: Paranoia, Loosening of associations - Suicidal Ideation Suicidal Ideation: No - Homicidal Ideation Homicidal Ideation: No Goal/Treatment Plan - Goal/Treatment Plan Need for Continued Stay: Severe depression anxiety, Severe functional impairment Progress Toward Problem(s) and Goals/Treatment Plan: Schizoaffective d/o - depressed Alcohol withdrawal Alcohol use d/o - severe Librium prn As needed medications All risks, benefits and alternatives of medications, including no medications, discussed and the patient understood and agreed. Supportive therapy and psychoeducation [place] for abstinence Encourage MAT (antabuse, naltrexone), rehab or IOP Attend self-help groups as well Lexapro for depression Seroquel 100 mg PO QHS Risperdal 2 mg PO BID CBT and support Gabapentin for augmentation if needed - Smoking Cessation Smoking Cessation Initiated: No
[2018-02-05 09:21] LABS: BASO # 0.1 K/uL (0.0-0.2); EOS # 0.1 K/uL (0.0-0.7); EOS % 1.5 % (0.0-4.0); HEMOGLOBIN 11.6 g/dL (12.0-18.0); LYMPH # 2.1 K/uL (1.0-4.3); LYMPH % 43.4 % (20.0-40.0); MEAN CELL VOLUME 93.7 fL (80.0-94.0); MEAN CORPUSCULAR HEMOGLOBIN 31.6 pg (27.0-31.0); MEAN CORPUSCULAR HGB CONC 33.7 g/dL (33.0-37.0); MEAN PLATELET VOLUME 7.4 fL (7.2-11.7); MONO # 0.7 K/uL (0.0-0.8); MONO % 15.5 % (0.0-10.0); NEUT # 1.8 K/uL (1.8-7.0); NEUT % 37.6 % (50.0-75.0); NRBC % 0.5 % (0.0-2.0); RBC 3.66 Mil/uL (4.40-5.90); RED CELL DISTRIBUTION WIDTH 17.2 % (11.5-14.5); WHITE BLOOD COUNT 4.8 K/uL (4.8-10.8)
[2018-02-05 09:46] LABS: ALB/GLOB RATIO 1.1 (1.0-2.1); ALT/SGPT 45 U/L (21-72); AST/SGOT 50 U/L (17-59); BLOOD UREA NITROGEN 14 mg/dL (9-20); CALCIUM 9.4 mg/dl (8.6-10.4); GFR AFRICAN-AMERICAN > 60; GFR NON-AFRICAN AMERICAN > 60
--- NOTE | 2018-02-05 13:10 | PCM.PYCHPN ---
Psychiatric Progress Note - Psychiatric Progress Note Patient seen today, length of contact: 16 min Patient Chief Complaint: "Better" Problems Identified/Issues Discussed: The pt is seen, chart reviewed, case discussed with staff. The pt is compliant with medications and reports no side-effects. Symptoms are improving but needs more time to stabilize. After care discussed, support and psychoeducation given. Still off a little in cognition and his insight into alcoholism is shaky - discussed Medication Change: Yes Medical Record Reviewed: Yes Mental Status Examination - Cognitive Function Orientation: Person, Place, Situation, Time Memory: Intact Attention: WNL Concentration: Poor Association: WNL Fund of Knowledge: WNL - Mood Mood: Depressed, Anxious - Affect Affect: Constricted - Speech Speech: Soft - Formal Thought Process Formal Thought Process: No Impairment - Suicidal Ideation Suicidal Ideation: No - Homicidal Ideation Homicidal Ideation: No Goal/Treatment Plan - Goal/Treatment Plan Need for Continued Stay: Severe depression anxiety, Severe functional impairment Progress Toward Problem(s) and Goals/Treatment Plan: As needed medications Gabapentin for augmentation if needed All risks, benefits and alternatives of medications, including no medications, discussed and the patient understood and agreed. Supportive therapy and psychoeducation [place] for abstinence Encourage MAT (antabuse, naltrexone), rehab or IOP Attend self-help groups as well Lexapro for depression Seroquel for schizoaffective d/o but when he is less sedated CBT and support
[2018-02-06 09:13] LABS: ALBUMIN 3.7 g/dL (3.5-5.0); ALT/SGPT 43 U/L (21-72); AST/SGOT 51 U/L (17-59); BLOOD UREA NITROGEN 12 mg/dL (9-20); CALCIUM 9.6 mg/dl (8.6-10.4); GFR AFRICAN-AMERICAN > 60; GFR NON-AFRICAN AMERICAN > 60
[2018-02-07 07:32] VITALS: BP 124/88; PULSE 98; RESP 18; TEMP 97.6; O2SAT 97
--- NOTE | 2018-02-07 10:09 | PCM.PYCHDC ---
Mental Status Examination - Mental Status Examination Orientation: Person, Place, Situation, Time Memory: Intact Mood: Neutral Affect: Constricted Speech: Soft Attention: WNL Concentration: WNL Association: WNL Fund of Knowledge: WNL Formal Thought Process: No Impairment Description of patient's judgement and insight: good, fair Psychotic Thoughts and Behaviors: denies any AVH Suicidal Ideation: No Current Homicidal Ideation?: No Discharge Summary - Discharge Note Reason for Hospitalization: he pt is seen, chart reviewed, case discussed. Consult was asked for his alcohol wdw and suicidality. He is known from previous consults and admissions. He is a poor historian. Info is gathered from staff, chart and the pt. He contracted for safety and will follow safety plan; call nurses, ask for help, take meds, go to psych when medically cleared. No plans to hurt self now, 1:1 d/c'ed for now but he will be monitored closely - discussed w nurse. 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 The patient informed our PES worker that he had wanted to end his life andhe told this advertising writer that he was "fed up" with the way he lives. However , he agreed to come to psychiatry and consider options like going to a prison rehab. The patient was previously hospitalized at [facility] in [place], for mental health issues. The patient was also hospitalized at [facility] in August 2017. He was depressed and paranoid, hearing voices. The patient was prescribed Seroquel, Zoloft and Gabepentin. The patient reports using alcohol about 1 pint of vodka daily. The patient denies any other substance use. Past psych hx: Two admissions. No suicide attempt, drinks more than 5 years, denies drugs/cigarettes Consultations:: List each consultation separately and include: 1. Reason for request. 2. Findings. 3. Follow-up Summary of Hospital Course include:: 1. Description of specific treatment plan utilized for patients during their course of treatmen. 2. Summarize the time- course for resolution of acute symptoms and/or regressed behaviors. 3. Describe issues identified and worked on during hospitalization. 4. Describe medication utilized. 5. Describe medical problems identified and treated. 6. Reassessment of suicide risk Summary of Hospital Course: During the course of his stay, patient (pt) started progressively improving and he no longer remained irritable, depressed, and suicidal. His mood and anxiety symptoms were improved and he started attending groups and meetings and started socializing. Patient denied any feelings of hopelessness, helplessness, and worthlessness, denied any problem with the sleep or appetite, denied suicidal ideation or homicidal ideation. Pt denied any auditory or visual hallucinations. He denied any withdrawal symptoms. Some changes were made in his current medications and patient was discharged on following medications. He tolerated these medications very well and denied any side effects. He was discharged to the [facility]/ [facility], [place] - Diagnosis (1) Major depressive disorder, recurrent, severe with psychotic features Status: Acute (2) Alcohol withdrawal Status: Acute - Final Diagnosis (DSM 5) Condition upon Discharge: SERIOUS DSM 5: Schizoaffective d/o - depressed Alcohol withdrawal Alcohol use d/o - severe Disposition: HOME/ ROUTINE Follow-up Treatment Plan: Education: Pt was educated and counseled about the risks and benefits of taking and not taking medications. Pt was educated and counseled about the risks of drinking and abusing drugs. Pt was educated and counseled to go to the ER or call 911 if pt develop suicidal ideation or homicidal ideation, worsening of symptoms or severe side effects of the meds. Prescriptions/Medication Reconciliation: Escitalopram [Lexapro] 10 mg PO DAILY #30 tab Gabapentin [Neurontin] 300 mg PO BID #60 cap risperiDONE [RisperDAL Tab] 2 mg PO BID #60 tab traZODone [Desyrel] 100 mg PO HS #30 tab - Smoking Cessation Smoking Cessation Medication prescribed: No - Antipsychotic Medications Pt discharged on 2 or more routine antipsychotic medications: No
--- NOTE | 2018-02-07 13:13 | PCM.PYCHPN ---
Psychiatric Progress Note - Psychiatric Progress Note Patient seen today, length of contact: 16 min Patient Chief Complaint: "I can go home" Problems Identified/Issues Discussed: The pt is seen, chart reviewed, case discussed with staff. Support given, CBT and [place] used briefly No new symptoms reported, improving slowly and needs more time No SEs from medications, risks discussed. After care discussed - he unfortunately minimizes his alcohol problem, a big risk for relapse. Discussed He'll leave tomorrow Medication Change: No Medical Record Reviewed: Yes Mental Status Examination - Cognitive Function Orientation: Person, Place, Situation, Time Memory: Intact Attention: WNL Concentration: Poor Association: WNL Fund of Knowledge: WNL - Mood Mood: Depressed, Anxious - Affect Affect: Constricted - Speech Speech: Soft - Formal Thought Process Formal Thought Process: No Impairment - Suicidal Ideation Suicidal Ideation: No - Homicidal Ideation Homicidal Ideation: No Goal/Treatment Plan - Goal/Treatment Plan Need for Continued Stay: Discharge may exacerbated symptoms, Severe functional impairment Progress Toward Problem(s) and Goals/Treatment Plan: As needed medications Gabapentin for augmentation if needed All risks, benefits and alternatives of medications, including no medications, discussed and the patient understood and agreed. Supportive therapy and psychoeducation [place] for abstinence Encourage MAT (antabuse, naltrexone), rehab or IOP Attend self-help groups as well Lexapro for depression Seroquel for schizoaffective d/o but when he is less sedated CBT and support
== END 2018-02-07 13:08 | disposition home or self-care (01) | DRG 430 ==
LOC: C.ER 16:41 → C.9I 22:59 → C.5S 01-30 16:35 → C.5E 02-01 15:57
PROVIDERS: ADMIT Psychiatry & Neurology Psychiatry; ATTEND Psychiatry & Neurology Psychiatry
PROC: GZ3ZZZZ Medication Management (ICD-10-PCS; principal; 2018-01-27)
PROC: HZ2ZZZZ Detoxification Services for Substance Abuse Treatment (ICD-10-PCS; 2018-01-27)
PROC: HZ59ZZZ Individual Psychotherapy for Substance Abuse Treatment, Supportive (ICD-10-PCS; 2018-01-27)
PROC: GZHZZZZ Group Psychotherapy (ICD-10-PCS; 2018-01-27)
PROC: HZ46ZZZ Group Counseling for Substance Abuse Treatment, Psychoeducation (ICD-10-PCS; 2018-01-27)
DX: F33.3 Major depressive disorder, recurrent, severe with psychotic symptoms (principal); F10.239 Alcohol dependence with withdrawal, unspecified; E87.2 Acidosis; D69.59 Other secondary thrombocytopenia; F20.0 Paranoid schizophrenia; E83.39 Other disorders of phosphorus metabolism; R45.851 Suicidal ideations; I10 Essential (primary) hypertension; F31.9 Bipolar disorder, unspecified; D64.9 Anemia, unspecified; W19.XXXA Unspecified fall, initial encounter; F10.229 Alcohol dependence with intoxication, unspecified; Y90.6 Blood alcohol level of 120-199 mg/100 ml; Z87.891 Personal history of nicotine dependence

== ENCOUNTER 2018-03-01 17:17 | Emergency (ER) | payer SELFPAY ==
[2018-03-01 17:17] VITALS: BMI 28.3
[2018-03-01 17:26] VITALS: TEMP 97.8
--- NOTE | 2018-03-01 18:27 | C.PDOC ---
History Of Present Illness 53 years old male with Hx of paranoia presents to ED for complaints of chest pain, abdominal pain, and back pain. Patient states he drank half a pint of vodka today. Denies injury or any other physical complaints. Time Seen by Provider: 03/01/18 18:20 Chief Complaint (Nursing): Substance Abuse History Per: Patient History/Exam Limitations: no limitations Onset/Duration Of Symptoms: Hrs Current Symptoms Are (Timing): Still Present Suicide/Self Injury Attempted (Context): None Modifying Factor(s): Alcohol Associated Symptoms: Paranoia. denies: Suicidal Thoughts, Suicidal Plan Involuntary Hold By: None Recent travel outside of the [place]: No Past Medical History Reviewed: Historical Data, Nursing Documentation, Vital Signs Vital Signs: Last Vital Signs Temp 97.8 F 03/01/18 22:16 Pulse 100 H 03/01/18 22:16 Resp 20 03/01/18 22:16 BP 118/70 03/01/18 22:16 Pulse Ox 98 03/03/18 14:55 - Medical History PMH: Bipolar Disorder, Fractures (left wrist 4 days ago cast intact), HTN, Paranoia, Seizures Surgical History: Hernia Repair - [facility] DETOXIFICATION SERVICES FOR SUBSTANCE ABUSE TREATMENT (01/27/18) GROUP CHILD WELFARE DIRECTOR FOR SUBSTANCE ABUSE TREATMENT, PSYCHOEDUCATION (01/27/18) GROUP PSYCHOTHERAPY (01/27/18) INDIV PSYCHOTHERAPY FOR SUBSTANCE ABUSE TREATMENT, SUPPORT (01/27/18) MEDICATION MANAGEMENT (01/27/18) Family History: States: Unknown Family Hx - Social History Hx Alcohol Use: Yes (alcohol dependen x 20 yrs.) Hx Substance Use: Yes - Immunization History Hx Tetanus Toxoid Vaccination: No Hx Influenza Vaccination: No Hx Pneumococcal Vaccination: No Review Of Systems Constitutional: Negative for: Fever, Chills Cardiovascular: Positive for: Chest Pain Gastrointestinal: Positive for: Abdominal Pain. Negative for: Nausea, Vomiting , Diarrhea Musculoskeletal: Positive for: Back Pain Skin: Negative for: Rash Neurological: Negative for: Weakness, Numbness Physical Exam - Physical Exam Appears: Well, Non-toxic, No Acute Distress, Other (Intoxicated) Skin: Warm, Dry, No Rash, Other (No wounds or injury of any kind) Head: Atraumatic, Normacephalic Eye(s): bilateral: Normal Inspection, PERRL, EOMI Nose: Normal, No Discharge Oral Mucosa: Moist Neck: Normal ROM, Supple Chest: Symmetrical, No Tenderness Cardiovascular: Rhythm Regular, No Murmur Respiratory: Normal Breath Sounds, No Decreased Breath Sounds, No Rales, No Rhonchi, No Wheezing Gastrointestinal/Abdominal: Soft, No Tenderness, No Distention, No Guarding, No Rebound Back: Normal Inspection, No CVA Tenderness Extremity: Normal ROM, No Tenderness, No Pedal Edema, No Deformity Extremity: Bilateral: Atraumatic, Normal Color And Temperature, Normal ROM Neurological/Psych: Oriented x3, Normal Speech Gait: Steady ED Course And Treatment O2 Sat by Pulse Oximetry: 98 (RA) Pulse Ox Interpretation: Normal Medical Decision Making Medical Decision Making: Ordered blood work. - Patient will be discharged when sober. Disposition - Disposition Disposition: HOME/ ROUTINE Disposition Time: 22:16 Condition: GOOD Forms: [facility] (Venezuelan) - Clinical Impression Clinical Impression: Alcohol abuse - Scribe Statement The provider has reviewed the documentation as recorded by the Scribe (Pt was seen by me and handed over to Dr Houston.) Laz Craven All medical record entries made by the Scribe were at my direction and personally dictated by me. I have reviewed the chart and agree that the record accurately reflects my personal performance of the history, physical exam, medical decision making, and the department course for this patient. I have also personally directed, reviewed, and agree with the discharge instructions and disposition.
[2018-03-01 22:17] VITALS: BP 118/70; PULSE 100; RESP 20
[2018-03-03 14:56] VITALS: O2SAT 98
== END 2018-03-02 00:05 | disposition home or self-care (01) ==
LOC: C.ER 17:17
DX: F10.10 Alcohol abuse, uncomplicated (principal); I10 Essential (primary) hypertension

== ENCOUNTER 2018-03-09 14:29 | Emergency (ER) | payer SELFPAY ==
[2018-03-09 14:34] VITALS: BMI 26.5
[2018-03-09 14:39] VITALS: RESP 20
--- NOTE | 2018-03-09 16:08 | C.PDOC ---
History Of Present Illness 53 y/o male presents to ED for complaints of dizziness and back pain. Denies fall, trauma, nausea, vomiting, fever or chills. Patient admits to alcohol today. Patient is known to ER. Time Seen by Provider: 03/09/18 15:14 Chief Complaint (Nursing): Dizziness/Lightheaded History Per: Patient History/Exam Limitations: no limitations Onset/Duration Of Symptoms: Hrs Current Symptoms Are (Timing): Still Present Recent travel outside of the [place]: No Past Medical History Reviewed: Historical Data, Nursing Documentation, Vital Signs Vital Signs: Last Vital Signs Temp 98.8 F 03/09/18 14:35 Pulse 103 H 03/09/18 18:12 Resp 20 03/09/18 18:12 BP 122/90 03/09/18 18:12 Pulse Ox 98 03/09/18 18:31 - Medical History PMH: Bipolar Disorder, Fractures (left wrist 4 days ago cast intact), HTN, Paranoia, Seizures Surgical History: Hernia Repair - [facility] Procedures DETOXIFICATION SERVICES FOR SUBSTANCE ABUSE TREATMENT (01/27/18) GROUP PRINT GRAPHIC DESIGNER FOR SUBSTANCE ABUSE TREATMENT, PSYCHOEDUCATION (01/27/18) GROUP PSYCHOTHERAPY (01/27/18) INDIV PSYCHOTHERAPY FOR SUBSTANCE ABUSE TREATMENT, SUPPORT (01/27/18) MEDICATION MANAGEMENT (01/27/18) Family History: States: Unknown Family Hx - Social History Hx Alcohol Use: Yes (alcohol dependen x 20 yrs.) Hx Substance Use: Yes - Immunization History Hx Tetanus Toxoid Vaccination: No Hx Influenza Vaccination: No Hx Pneumococcal Vaccination: No Review Of Systems Constitutional: Negative for: Fever, Chills Gastrointestinal: Negative for: Nausea, Vomiting, Abdominal Pain, Diarrhea Musculoskeletal: Positive for: Back Pain Skin: Negative for: Rash Neurological: Positive for: Dizziness. Negative for: Weakness, Numbness Physical Exam - Physical Exam Appears: Non-toxic, No Acute Distress Skin: Normal Color, Warm, Dry Head: Atraumatic, Normacephalic Eye(s): bilateral: Normal Inspection, PERRL, EOMI Ear(s): Bilateral: Normal Nose: Normal, No Discharge Oral Mucosa: Moist Neck: Supple Chest: Symmetrical, No Tenderness Cardiovascular: Rhythm Regular, No Murmur Respiratory: Normal Breath Sounds, No Decreased Breath Sounds, No Rales, No Rhonchi, No Wheezing Gastrointestinal/Abdominal: Soft, No Tenderness Back: Normal Inspection, No CVA Tenderness, No Paraspinal Tenderness Extremity: Normal ROM, No Deformity Extremity: Bilateral: Atraumatic, Normal Color And Temperature, Normal ROM Neurological/Psych: Oriented x3, Normal Speech Gait: Steady ED Course And Treatment O2 Sat by Pulse Oximetry: 98 (RA) Pulse Ox Interpretation: Normal Medical Decision Making Medical Decision Making: Administered antivert and librium. Disposition - Disposition Referrals: [facility] [Outside] Disposition Time: 18:29 Condition: STABLE Additional Instructions: Follow up with the medical doctor within 1-2 days. Return if worsened. Prescriptions: Meclizine HCl [Wal-Dram 2] 25 mg PO TID PRN #21 tablet PRN Reason: Dizziness Instructions: Vertigo (a Type of Dizziness), Alcohol Use - When Is Drinking a Problem? Forms: [facility] (Latvian) - Clinical Impression Clinical Impression: Alcohol abuse, Dizziness - PA / EDGE BASTER / Resident Statement MD/DO has reviewed & agrees with the documentation as recorded. - Scribe Statement The provider has reviewed the documentation as recorded by the Scribclifton Craven All medical record entries made by the Scribe were at my direction and personally dictated by me. I have reviewed the chart and agree that the record accurately reflects my personal performance of the history, physical exam, medical decision making, and the department course for this patient. I have also personally directed, reviewed, and agree with the discharge instructions and disposition. Physician Patient Turnover Patient Signed Over To: Esdras Houston Handoff Comments: Pending re-eval and sobreity
[2018-03-09 19:27] VITALS: BP 132/85; PULSE 90; TEMP 99.3; O2SAT 95
== END 2018-03-09 19:36 | disposition home or self-care (01) ==
LOC: C.ER 14:29
DX: R42 Dizziness and giddiness (principal); F10.10 Alcohol abuse, uncomplicated; Y90.9 Presence of alcohol in blood, level not specified

== ENCOUNTER 2018-03-12 02:03 | Emergency (ER) | payer SELFPAY ==
[2018-03-12 02:04] VITALS: BMI 26.5
--- NOTE | 2018-03-12 02:56 | C.PDOC ---
History Of Present Illness Patient is a 53 y/o male who presents to the ED BIBA for acute alcohol intoxication. Patient is currently sleeping in ED and unable to answer questions at this time. Time Seen by Provider: 03/12/18 02:24 Chief Complaint (Nursing): Substance Abuse History Per: Patient History/Exam Limitations: no limitations Onset/Duration Of Symptoms: Hrs Current Symptoms Are (Timing): Still Present Suicide/Self Injury Attempted (Context): None Modifying Factor(s): Alcohol Recent travel outside of the [place]: No Past Medical History Reviewed: Historical Data, Nursing Documentation, Vital Signs Vital Signs: Last Vital Signs Temp 97.9 F 03/12/18 02:15 Pulse 85 03/12/18 02:15 Resp 16 03/12/18 02:15 BP 114/72 03/12/18 02:15 Pulse Ox 99 03/12/18 06:49 - Medical History PMH: Bipolar Disorder, Fractures (left wrist 4 days ago cast intact), HTN, Paranoia, Seizures Denies: Chronic Kidney Disease Surgical History: Hernia Repair - [facility] Procedures DETOXIFICATION SERVICES FOR SUBSTANCE ABUSE TREATMENT (01/27/18) GROUP BANKING MANAGEMENT CONSULTING MANAGER FOR SUBSTANCE ABUSE TREATMENT, PSYCHOEDUCATION (01/27/18) GROUP PSYCHOTHERAPY (01/27/18) INDIV PSYCHOTHERAPY FOR SUBSTANCE ABUSE TREATMENT, SUPPORT (01/27/18) MEDICATION MANAGEMENT (01/27/18) Family History: States: Unknown Family Hx - Social History Hx Tobacco Use: No (former smoker) Hx Alcohol Use: Yes (alcohol dependent x 20 yrs.) Hx Substance Use: No - Immunization History Hx Tetanus Toxoid Vaccination: No Hx Influenza Vaccination: No Hx Pneumococcal Vaccination: No Review Of Systems Review Of Systems: ROS cannot be obtained secondary to pt's inabilty to answer questions. Physical Exam - Physical Exam Appears: Well, Non-toxic, Other (sleeping ) Skin: Normal Color, Warm, Dry Head: Atraumatic, Normacephalic ED Course And Treatment O2 Sat by Pulse Oximetry: 99 Progress Note: Patient unable to be fully assessed due to inability to answer by sleeping. Disposition Counseled Patient/Family Regarding: Diagnosis - Disposition Disposition: HOME/ ROUTINE Disposition Time: 06:50 Condition: GOOD Forms: [facility] (Czech) - Clinical Impression Clinical Impression: Alcohol abuse - Scribe Statement The provider has reviewed the documentation as recorded by the Scribe Trudy Quiroga All medical record entries made by the Scribe were at my direction and personally dictated by me. I have reviewed the chart and agree that the record accurately reflects my personal performance of the history, physical exam, medical decision making, and the department course for this patient. I have also personally directed, reviewed, and agree with the discharge instructions and disposition.
[2018-03-12 07:47] VITALS: BP 128/74; PULSE 78; RESP 18; TEMP 98.4; O2SAT 100
== END 2018-03-12 08:14 | disposition home or self-care (01) ==
LOC: C.ER 02:03
DX: F10.129 Alcohol abuse with intoxication, unspecified (principal); Y90.9 Presence of alcohol in blood, level not specified

== ENCOUNTER 2018-04-12 15:07 | Inpatient (IN) | payer MEDICAID, OTHER, SELFPAY ==
[2018-04-12 15:07] VITALS: BMI 26.5
[2018-04-12] MEDS ORDERED: Sodium Chloride 0.9% 1,000 ML IV ONE (15:27)
[2018-04-12] MEDS ORDERED: Sodium Chloride 0.9% 1,000 ML ONE (16:02)
--- NOTE | 2018-04-12 16:02 | C.PDOC ---
History Of Present Illness 53 y/o male brought to ED for acute ETOH intoxication and with complaints of dizziness. Patient reports last drink was last night. Today, pt reports, feels dizzy describes as spinning sensation, nausea, tremulous. Otherwise, pt denies LOC, syncope, headache, visual changes, focal deficits, neck pain, chest pain, SOB, dyspnea, palpitation, abd. pain, vomiting, diarrhea or any other complaints at this time. At the time of evaluation, appears tremolous, AAO#3. Time Seen by Provider: 04/12/18 15:11 Chief Complaint (Nursing): Substance Abuse History Per: Patient History/Exam Limitations: no limitations Onset/Duration Of Symptoms: Days Current Symptoms Are (Timing): Still Present Suicide/Self Injury Attempted (Context): None Modifying Factor(s): Alcohol Past Medical History Reviewed: Historical Data, Nursing Documentation, Vital Signs Vital Signs: Last Vital Signs Temp 97.7 F 04/12/18 15:10 Pulse 73 04/12/18 17:39 Resp 18 04/12/18 17:39 BP 136/75 04/12/18 17:39 Pulse Ox 99 04/12/18 17:39 - Medical History PMH: Bipolar Disorder, Fractures (left wrist 4 days ago cast intact), HTN, Paranoia, Seizures Surgical History: Hernia Repair - [facility] Procedures DETOXIFICATION SERVICES FOR SUBSTANCE ABUSE TREATMENT (01/27/18) GROUP SPECIALTY MANUFACTURING SUPERVISOR FOR SUBSTANCE ABUSE TREATMENT, PSYCHOEDUCATION (01/27/18) GROUP PSYCHOTHERAPY (01/27/18) INDIV PSYCHOTHERAPY FOR SUBSTANCE ABUSE TREATMENT, SUPPORT (01/27/18) MEDICATION MANAGEMENT (01/27/18) Family History: States: No Known Family Hx - Social History Hx Tobacco Use: No (former smoker) Hx Alcohol Use: Yes (alcohol dependent x 20 yrs.) Hx Substance Use: No - Immunization History Hx Tetanus Toxoid Vaccination: No Hx Influenza Vaccination: No Hx Pneumococcal Vaccination: No Review Of Systems Except As Marked, All Systems Reviewed And Found Negative. Constitutional: Negative for: Fever, Chills Cardiovascular: Negative for: Chest Pain Gastrointestinal: Negative for: Nausea, Vomiting, Abdominal Pain Neurological: Positive for: Dizziness. Negative for: Headache Psych: Positive for: Other (ETOH intoxication). Negative for: Suicidal ideation , Withdrawal Physical Exam - Physical Exam Appears: Non-toxic, No Acute Distress, Other (tremolous) Skin: Warm, Dry, No Rash Head: Atraumatic, Normacephalic Eye(s): bilateral: PERRL Nose: No Flaring, No Discharge Oral Mucosa: Moist Throat: No Erythema, No Drooling Neck: Normal ROM, Trachea Midline, Supple Cardiovascular: Rhythm Regular, No Murmur, No JVD Respiratory: No Decreased Breath Sounds, No Accessory Muscle Use, No Rales, No Rhonchi, No Wheezing Gastrointestinal/Abdominal: Soft, No Tenderness, No Guarding, No Rebound Extremity: Normal ROM, No Pedal Edema, Capillary Refill (<2 seconds) Neurological/Psych: Oriented x3, Normal Speech, Normal Cognition ED Course And Treatment - Laboratory Results Result Diagrams: 04/12/18 16:17 04/12/18 16:17 Lab Interpretation: Abnormal ECG: Interpreted By Me, Viewed By Me ECG Rhythm: Sinus Rhythm Interpretation Of ECG: SR@80/min, LAD, T wave inversion in III, V3-V4, no acute ST-T changes. Compare to old study from 02/11/18 and appears same. O2 Sat by Pulse Oximetry: 96 (RA) Pulse Ox Interpretation: Normal - Radiology CXR: Interpreted by Me, Viewed By Me CXR Interpretation: Yes: No Acute Disease Progress Note: At 16:10, pt resting comforatble, AAO#3, tremolous. Non-toxic. Neurologicaly intact. At 18:00, pt reports not significnat cahnges, still c/o dizziness described as vertigo. Neuorlogicaly intact. Blood owrk review and appears abnormal. Case discussed with Hospitalist and admission arranged to tele with Dx: Dizziness, thrombopenia, alcohol withdrawal. Disposition - Disposition Disposition: HOSPITALIZED Disposition Time: 18:04 Condition: STABLE Forms: [facility] (Arabic) - Clinical Impression Clinical Impression: Alcohol withdrawal, Dizziness, Thrombocytopenia - PA / NUCLEAR ENGINEERING TECHNICIAN / Resident Statement MD/DO has reviewed & agrees with the documentation as recorded. - Scribe Statement The provider has reviewed the documentation as recorded by the Khurram Valencia All medical record entries made by the Scribclifton were at my direction and personally dictated by me. I have reviewed the chart and agree that the record accurately reflects my personal performance of the history, physical exam, medical decision making, and the department course for this patient. I have also personally directed, reviewed, and agree with the discharge instructions and disposition.
[2018-04-12 16:21] LABS: BASO % 0.5 % (0.0-2.0); EOS % 0.5 % (0.0-4.0); LYMPH # 0.8 K/uL (1.0-4.3); LYMPH % 13.2 % (20.0-40.0); MEAN CORPUSCULAR HEMOGLOBIN 30.3 pg (27.0-31.0); MEAN PLATELET VOLUME 7.6 fL (7.2-11.7); MONO # 0.3 K/uL (0.0-0.8); MONO % 4.6 % (0.0-10.0); NEUT # 5.1 K/uL (1.8-7.0); NEUT % 81.2 % (50.0-75.0); NRBC % 0.1 % (0.0-2.0); RBC 4.78 Mil/uL (4.40-5.90); WHITE BLOOD COUNT 6.2 K/uL (4.8-10.8)
[2018-04-12 16:28] LABS: HEMOGLOBIN 14.5 g/dL (12.0-18.0)
[2018-04-12 16:33] LABS: ALB/GLOB RATIO 1.3 (1.0-2.1); ALBUMIN 4.7 g/dL (3.5-5.0); ALT/SGPT 99 U/L (21-72); AST/SGOT 140 U/L (17-59); BLOOD UREA NITROGEN 10 mg/dL (9-20); CALCIUM 8.9 mg/dl (8.6-10.4); GFR AFRICAN-AMERICAN > 60; GFR NON-AFRICAN AMERICAN > 60
[2018-04-12] MEDS ORDERED: Folic Acid 1 MG, Thiamine 100 MG, Multivitamin (MVI) 10 ML in Dextrose 5% In Water 1,00... IV SCH (17:00)
--- NOTE | 2018-04-12 17:16 | RAD ---
Date of service: 04/12/2018 HISTORY: Dizziness COMPARISON: 10/29/2017. FINDINGS: LUNGS: No active pulmonary disease. PLEURA: No significant pleural effusion identified, no pneumothorax apparent. CARDIOVASCULAR: No radiographic findings to suggest acute or significant cardiovascular disease. OSSEOUS STRUCTURES: No significant abnormalities. VISUALIZED UPPER ABDOMEN: Normal. OTHER FINDINGS: None. IMPRESSION: No active disease. No significant interval change compared to the prior examination(s).
[2018-04-12 18:32] LABS: SQUAMOUS EPITHIAL < 1 /hpf (0-5); URINE BACTERIA RARE (<OCC); URINE BILIRUBIN NEGATIVE (NEGATIVE); URINE BLOOD 1+ (NEGATIVE); URINE CLARITY Hazy (Clear); URINE GLUCOSE (UA) 1+ mg/dL (Normal); URINE LEUKOCYTE ESTERASE NEG Leu/uL (Negative); URINE PROTEIN 2+ mg/dL (NEGATIVE)
[2018-04-12 18:33] LABS: URINE COLOR YELLOW (YELLOW)
--- NOTE | 2018-04-12 18:51 | CT ---
Date of service: 04/12/2018 PROCEDURE: CT HEAD WITHOUT CONTRAST. HISTORY: dizziness, alcohol intoxication COMPARISON: 01/27/2018. TECHNIQUE: Axial computed tomography images were obtained through the head/brain without intravenous contrast. Coronal and sagittal reconstructed images. Radiation dose: Total exam DLP = 875.25 mGy-cm. This CT exam was performed using one or more of the following dose reduction techniques: Automated exposure control, adjustment of the mA and/or kV according to patient size, and/or use of iterative reconstruction technique. FINDINGS: HEMORRHAGE: No intracranial hemorrhage. BRAIN: No mass effect or edema. No atrophy or chronic microvascular ischemic changes. VENTRICLES: Unremarkable. No hydrocephalus. CALVARIUM: Unremarkable. PARANASAL SINUSES: Unremarkable as visualized. No significant inflammatory changes. MASTOID AIR CELLS: Unremarkable as visualized. No inflammatory changes. OTHER FINDINGS: None. IMPRESSION: No acute intracranial abnormalities. No significant findings to account for the clinical presentation. No significant interval change compared to the prior examination(s).
[2018-04-12 18:54] LABS: BARBITURATES, UR NEGATIVE (NEGATIVE); BENZODIAZEPINES, UR NEGATIVE (NEGATIVE); OPIATES, UR NEGATIVE (NEGATIVE); PHENCYCLIDINE, UR NEGATIVE (NEGATIVE)
--- NOTE | 2018-04-12 19:22 | CP.PCM.HP ---
<Rosa Crowell - Last Filed: 04/12/18 21:15> History of Present Illness - History of Present Illness History of Present Illness: Medicine Note for Hospitalist Service CC: dizziness, s/p fall, questionable seizure? HPI: This a 53 year old male with PMHx of Alcohol Use Disorder, DTs, Thrombocytopenia, Anemia of Chronic Disease, and Paranoid Schizophrenia who presents to the ED with dizziness resulting in a fall, brought in by ambulance. Patient reports today he was walking around this afternoon in a kitchen (was not able to say where exactly, as patient is homeless), when he felt dizzy, unsteady, and fell. He is unaware if he started to seizure, but admits when he woke up he urinated on himself, denied any fecal incontinence. The dizziness is associated with a squeezing chest pain that has been occurring for the last two years. A headache rated 8 out of 10 and epigastric tenderness are both present. The patient was unsure of when he drank last, but stated he had not had a drink today. Upon exam the patient was mildly tremulous and aware of place and city but the day. His visited the ED 3x in February 2018 for similar symptoms and followed up at the clinic on 03/24, but has not followed up with psych. Denied any associated headache, changes in vision, shortness of breath, n/v/d/c, or dysuria. PMHx: Alcohol Use Disorder, DTs, Thrombocytopenia, Anemia of Chronic Disease, Paranoid Schizophrenia PSHx: hernia repair Meds: Seroquel, Risperdal, Trazodone Allergies: Denies Social: states he lives in in apartment but appears unkempt; states psychiatrist is in [place] but cannot remember name, states he is independent in IADL and ADL, denies smoking, 1 pint of vodka daily for 20 years. FamHx: HTN Present on Admission - Present on Admission Any Indicators Present on Admission: No Past Patient History - Infectious Disease Hx of Infectious Diseases: None - Past Medical History & Family History Past Medical History?: Yes - Past Social History Smoking Status: Former Smoker - CARDIAC Hx Hypertension: Yes - PULMONARY Hx Respiratory Disorders: No - NEUROLOGICAL Hx Seizures: Yes - HEENT Hx HEENT Problems: No - RENAL Hx Chronic Kidney Disease: No - ENDOCRINE/METABOLIC Hx Endocrine Disorders: No - HEMATOLOGICAL/ONCOLOGICAL Hx Blood Disorders: No - INTEGUMENTARY Hx Dermatological Problems: No - MUSCULOSKELETAL/RHEUMATOLOGICAL Hx Fractures: Yes (left wrist 4 days ago cast intact) - GASTROINTESTINAL Hx Gastrointestinal Disorders: No - GENITOURINARY/GYNECOLOGICAL Hx Genitourinary Disorders: No - PSYCHIATRIC Hx Bipolar Disorder: Yes Hx Paranoia: Yes Hx Substance Use: No - SURGICAL HISTORY Hx Surgeries: Yes Hx Herniorrhaphy: Yes (left) - ANESTHESIA Hx Anesthesia: Yes Hx Anesthesia Reactions: No Hx Malignant Hyperthermia: No Meds Allergies/Adverse Reactions: Allergies Allergy/AdvReac Type Severity Reaction Status Date / Time No Known Allergies Allergy Verified 04/12/18 15:13 Physical Exam - Constitutional Appears: No Acute Distress, Unkempt - Head Exam Head Exam: ATRAUMATIC, NORMAL INSPECTION, NORMOCEPHALIC - Eye Exam Eye Exam: EOMI, Normal appearance, PERRL. absent: Nystagmus, Scleral icterus Pupil Exam: NORMAL ACCOMODATION, PERRL - ENT Exam ENT Exam: Mucous Membranes Dry - Neck Exam Neck exam: Positive for: Normal Inspection. Negative for: Lymphadenopathy, Tenderness, Thyromegaly - Respiratory Exam Respiratory Exam: Clear to Auscultation Bilateral, NORMAL BREATHING PATTERN. absent: Decreased Breath Sounds, Rales, Rhonchi, Wheezes, Respiratory Distress - Cardiovascular Exam Cardiovascular Exam: REGULAR RHYTHM, +S1, +S2. absent: Bradycardia, Tachycardia , Diastolic murmur, Systolic Murmur - GI/Abdominal Exam GI & Abdominal Exam: Normal Bowel Sounds, Soft. absent: Distended, Tenderness - Extremities Exam Extremities exam: Positive for: normal inspection, pedal pulses present. Negative for: pedal edema, tenderness - Back Exam Back exam: NORMAL INSPECTION - Neurological Exam Neurological exam: Alert, CN II-XII Intact, Oriented x3 - Skin Skin Exam: Dry, Intact, Normal Color, Warm Results - Vital Signs Recent Vital Signs: Last Vital Signs Temp 97.7 F 04/12/18 15:10 Pulse 73 04/12/18 17:39 Resp 18 04/12/18 17:39 BP 136/75 04/12/18 17:39 Pulse Ox 96 04/12/18 18:12 - Labs Result Diagrams: 04/12/18 16:17 04/12/18 16:17 Labs: Laboratory Results - last 24 hr 04/12/18 04/12/18 04/12/18 06:30 15:16 15:28 WBC RBC Hgb Hct MCV MCH MCHC RDW Plt Count MPV Neut % (Auto) Lymph % (Auto) [place] % (Auto) Eos % (Auto) Baso % (Auto) Neut # (Auto) Lymph # (Auto) [place] # (Auto) Eos # (Auto) Baso # (Auto) Differential Comment Sodium Potassium Chloride Carbon Dioxide Anion Gap BUN Creatinine Est GFR ( Amer) Est GFR (Non-Af Amer) POC Glucose (mg/dL) 136 H Random Glucose Calcium Phosphorus Magnesium Total Bilirubin AST ALT Alkaline Phosphatase Total Creatine Kinase Troponin I Total Protein Albumin Globulin Albumin/Globulin Ratio Amylase Lipase Urine Color Yellow Urine Clarity Hazy Urine pH 5.0 Ur Specific [place] 1.026 Urine Protein 2+ H Urine Glucose (UA) 1+ H Urine Ketones 1+ H Urine Blood 1+ H Urine Nitrate Negative Urine Bilirubin Negative Urine Urobilinogen 2.0 Ur Leukocyte Esterase Neg Urine WBC (Auto) 3 Urine RBC (Auto) 13 H Ur Squamous Epith Cells < 1 Urine Bacteria Rare Urine Opiates Screen Negative Urine Methadone Screen Negative Ur Barbiturates Screen Negative Ur Phencyclidine Scrn Negative Ur Amphetamines Screen Negative U Benzodiazepines Scrn Negative U Oth Cocaine Metabols Negative U Cannabinoids Screen Negative Alcohol, Quantitative 04/12/18 04/12/18 04/12/18 16:17 16:17 18:10 WBC 6.2 RBC 4.78 Hgb 14.5 D Hct 42.5 MCV 89.0 D MCH 30.3 MCHC 34.0 RDW 17.0 H Plt Count 55 L D MPV 7.6 Neut % (Auto) 81.2 H Lymph % (Auto) 13.2 L [place] % (Auto) 4.6 Eos % (Auto) 0.5 Baso % (Auto) 0.5 Neut # (Auto) 5.1 Lymph # (Auto) 0.8 L [place] # (Auto) 0.3 Eos # (Auto) 0.0 Baso # (Auto) 0.0 Differential Comment Sodium 141 Potassium 3.7 Chloride 96 L Carbon Dioxide 25 Anion Gap 24 H BUN 10 Creatinine 0.8 Est GFR ( Amer) > 60 Est GFR (Non-Af Amer) > 60 POC Glucose (mg/dL) Random Glucose 118 H Calcium 8.9 Phosphorus 3.3 Magnesium 1.7 Total Bilirubin 1.3 AST 140 H D ALT 99 H D Alkaline Phosphatase 88 Total Creatine Kinase 200 H Troponin I < 0.0120 Total Protein 8.5 H Albumin 4.7 Globulin 3.7 Albumin/Globulin Ratio 1.3 Amylase 73 Lipase 188 Urine Color Urine Clarity Urine pH Ur Specific [place] Urine Protein Urine Glucose (UA) Urine Ketones Urine Blood Urine Nitrate Urine Bilirubin Urine Urobilinogen Ur Leukocyte Esterase Urine WBC (Auto) Urine RBC (Auto) Ur Squamous Epith Cells Urine Bacteria Urine Opiates Screen Urine Methadone Screen Ur Barbiturates Screen Ur Phencyclidine Scrn Ur Amphetamines Screen U Benzodiazepines Scrn U Oth Cocaine Metabols U Cannabinoids Screen Alcohol, Quantitative 43 H Assessment & Plan - Assessment and Plan (Free Text) Plan: Alcohol Intoxication Concern for Withdrawal, Hx DTs Thrombocytopenia Anemia of Chronic Disease - Patient states he would like detox - psych consulted for detox - Alcohol level on admission 43 - UDS negative, lipase WNL - EKG- no sign of QTc prolongation, will continue to monitor - Seizure, Aspiration Precautions, CIWA Protocol - Echo 10/2017 was WNL; no abnormalities; please refer to full report - Banana bag x 1, MV, thiamine, folic daily, Ativan PRN S/P Fall History of frequent falls - Head CT - negative for any intracranial hemorrhage Transaminitis - Likely 2/2 to alcohol use - Hepatitis panel negative from previous admission 01/2018 - Ab US - no evidence of cirrhosis - Avoid hepatoxic agents, will continue to monitor Paranoid Schizophrenia - Resumed Escitalopram [Lexapro] 10 mg PO DAILY, Gabapentin 300 mg PO BID, risperiDONE 2 mg PO BID - EKG- no sign of QTc prolongation, will continue to monitor Prophylactic Measures - Protonix - SCDs, VTE c/i due to thrombocytopenia - PT/OT - Case management for discharge planning as patient is homeless DW Rosa Monahan DO, PGY-2 <Carroll Wright - Last Filed: 04/13/18 05:58> Results - Vital Signs Recent Vital Signs: Last Vital Signs Temp 98.7 F 04/12/18 23:15 Pulse 70 04/13/18 00:01 Resp 20 04/12/18 23:15 BP 136/82 04/12/18 23:15 Pulse Ox 99 04/12/18 23:15 - Labs Result Diagrams: 04/12/18 16:17 04/12/18 16:17 Labs: Laboratory Results - last 24 hr 04/12/18 04/12/18 04/12/18 06:30 15:16 15:28 WBC RBC Hgb Hct MCV MCH MCHC RDW Plt Count MPV Neut % (Auto) Lymph % (Auto) [place] % (Auto) Eos % (Auto) Baso % (Auto) Neut # (Auto) Lymph # (Auto) [place] # (Auto) Eos # (Auto) Baso # (Auto) Differential Comment Sodium Potassium Chloride Carbon Dioxide Anion Gap BUN Creatinine Est GFR ( Amer) Est GFR (Non-Af Amer) POC Glucose (mg/dL) 136 H Random Glucose Calcium Phosphorus Magnesium Total Bilirubin AST ALT Alkaline Phosphatase Total Creatine Kinase Troponin I Total Protein Albumin Globulin Albumin/Globulin Ratio Amylase Lipase Urine Color Yellow Urine Clarity Hazy Urine pH 5.0 Ur Specific [place] 1.026 Urine Protein 2+ H Urine Glucose (UA) 1+ H Urine Ketones 1+ H Urine Blood 1+ H Urine Nitrate Negative Urine Bilirubin Negative Urine Urobilinogen 2.0 Ur Leukocyte Esterase Neg Urine WBC (Auto) 3 Urine RBC (Auto) 13 H Ur Squamous Epith Cells < 1 Urine Bacteria Rare Urine Opiates Screen Negative Urine Methadone Screen Negative Ur Barbiturates Screen Negative Ur Phencyclidine Scrn Negative Ur Amphetamines Screen Negative U Benzodiazepines Scrn Negative U Oth Cocaine Metabols Negative U Cannabinoids Screen Negative Alcohol, Quantitative 04/12/18 04/12/18 04/12/18 16:17 16:17 18:10 WBC 6.2 RBC 4.78 Hgb 14.5 D Hct 42.5 MCV 89.0 D MCH 30.3 MCHC 34.0 RDW 17.0 H Plt Count 55 L D MPV 7.6 Neut % (Auto) 81.2 H Lymph % (Auto) 13.2 L [place] % (Auto) 4.6 Eos % (Auto) 0.5 Baso % (Auto) 0.5 Neut # (Auto) 5.1 Lymph # (Auto) 0.8 L [place] # (Auto) 0.3 Eos # (Auto) 0.0 Baso # (Auto) 0.0 Differential Comment Sodium 141 Potassium 3.7 Chloride 96 L Carbon Dioxide 25 Anion Gap 24 H BUN 10 Creatinine 0.8 Est GFR ( Amer) > 60 Est GFR (Non-Af Amer) > 60 POC Glucose (mg/dL) Random Glucose 118 H Calcium 8.9 Phosphorus 3.3 Magnesium 1.7 Total Bilirubin 1.3 AST 140 H D ALT 99 H D Alkaline Phosphatase 88 Total Creatine Kinase 200 H Troponin I < 0.0120 Total Protein 8.5 H Albumin 4.7 Globulin 3.7 Albumin/Globulin Ratio 1.3 Amylase 73 Lipase 188 Urine Color Urine Clarity Urine pH Ur Specific [place] Urine Protein Urine Glucose (UA) Urine Ketones Urine Blood Urine Nitrate Urine Bilirubin Urine Urobilinogen Ur Leukocyte Esterase Urine WBC (Auto) Urine RBC (Auto) Ur Squamous Epith Cells Urine Bacteria Urine Opiates Screen Urine Methadone Screen Ur Barbiturates Screen Ur Phencyclidine Scrn Ur Amphetamines Screen U Benzodiazepines Scrn U Oth Cocaine Metabols U Cannabinoids Screen Alcohol, Quantitative 43 H Assessment & Plan - Date & Time Date: 04/13/18 (I have seen and examined the patient. I agree with the findings and plan of care as documented by Dr. Crowell. Patient with alcohol abuse. Potential for withdrawal. Transaminitis. [facility] protocol. History of schizophrenia. Continue home meds. Consult to psych. For detox when patient is medically optimized. Monitor for acute changes.) Time: 05:56 Attending/Attestation - Attestation I have personally seen and examined this patient.: Yes I have fully participated in the care of the patient.: Yes I have reviewed all pertinent clinical information: Yes
[2018-04-12] MEDS ORDERED: Dextrose 50% SYRINGE Inj (50 ml) IV PRN (19:52)
[2018-04-12] MEDS ORDERED: Glucagon Recombinant 1 mg Inj IM PRN (19:52)
[2018-04-12] MEDS: Sodium Chloride 0.9% 1,000 ML IV SCH (21:33)
[2018-04-13] MEDS: Fluticasone Nasal 50 mcg/Spray NAS SCH ×3 (03:23→21:32)
[2018-04-13 07:29] LABS: BASO % 0.7 % (0.0-2.0); EOS # 0.1 K/uL (0.0-0.7); EOS % 2.2 % (0.0-4.0); HEMOGLOBIN 12.7 g/dL (12.0-18.0); LYMPH # 1.9 K/uL (1.0-4.3); LYMPH % 41.2 % (20.0-40.0); MEAN CELL VOLUME 89.9 fL (80.0-94.0); MEAN CORPUSCULAR HEMOGLOBIN 30.1 pg (27.0-31.0); MEAN CORPUSCULAR HGB CONC 33.5 g/dL (33.0-37.0); MONO # 0.3 K/uL (0.0-0.8); NEUT # 2.4 K/uL (1.8-7.0); NEUT % 49.9 % (50.0-75.0); RBC 4.21 Mil/uL (4.40-5.90); RED CELL DISTRIBUTION WIDTH 16.8 % (11.5-14.5); WHITE BLOOD COUNT 4.7 K/uL (4.8-10.8)
[2018-04-13 07:44] LABS: BLOOD UREA NITROGEN 11 mg/dL (9-20); GFR AFRICAN-AMERICAN > 60; GFR NON-AFRICAN AMERICAN > 60
[2018-04-13 07:45] LABS: ALB/GLOB RATIO 1.2 (1.0-2.1); ALBUMIN 3.8 g/dL (3.5-5.0); ALT/SGPT 78 U/L (21-72); AST/SGOT 90 U/L (17-59); CALCIUM 8.7 mg/dl (8.6-10.4)
--- NOTE | 2018-04-13 09:18 | CP.PCM.PN ---
<Carlos Eldridge M - Last Filed: 04/13/18 22:23> Subjective - Date & Time of Evaluation Date of Evaluation: 04/13/18 Time of Evaluation: 10:40 - Subjective Subjective: PGY [address] Poe. Patient seen and examined at bedside. No overnight events. Patient was sitting in chair no acute distress. Patient denies chest pain, shortness of breath, abdominal pain, nausea, vomiting, diarrhea. Objective - Vital Signs/Intake and Output Vital Signs (last 24 hours): Temp Pulse Resp BP Pulse Ox 98.3 F 51 L 20 147/81 99 04/13/18 07:00 04/13/18 07:00 04/13/18 07:00 04/13/18 07:00 04/13/18 07:00 Intake and Output: 04/13/18 04/13/18 06:59 18:59 Intake Total 1000 Output Total 650 Balance 350 - Medications Medications: Current Medications Dextrose (Dextrose 50% Inj) 0 ml IV STAT PRN; Protocol PRN Reason: Hypoglycemia Protocol Dextrose (Glutose 15) 0 gm PO ONCE PRN; Protocol PRN Reason: Hypoglycemia Protocol Escitalopram Oxalate (Lexapro) 10 mg PO DAILY [facility]NET[facility] Fluticasone Propionate (Flonase) 1 spr MESSI Q12 [facility]NETTE Last Admin: 04/13/18 03:23 Dose: 1 spr Folic Acid (Folic Acid) 1 mg PO DAILY ANNETTE Gabapentin (Neurontin) 300 mg PO BID [facility] Glucagon (Glucagen Diagnostic Kit) 0 mg IM STAT PRN; Protocol PRN Reason: Hypoglycemia Protocol Sodium Chloride (Sodium Chloride 0.9%) 1,000 mls @ 100 mls/hr IV .Q10H ANNETTE Last Admin: 04/12/18 21:33 Dose: 100 mls/hr Dextrose (Dextrose 5% In Water 1000 Ml) 1,000 mls @ 0 mls/hr IV .Q0M PRN; Protocol; Per Protocol PRN Reason: Hypoglycemia Protocol Lorazepam (Ativan) 1 mg IVP Q4H PRN PRN Reason: Symptoms of alcohol withdrawl Lorazepam (Ativan) 2 mg PO Q8H ANNETTE PRN Reason: Taper Stop: 04/18/18 03:59 Last Admin: 04/13/18 03:24 Dose: 2 mg Multivitamins (Hexavitamin) 1 tab PO DAILY ANNETTE Ondansetron HCl (Zofran Inj) 4 mg IVP Q6 PRN PRN Reason: Nausea/Vomiting Pantoprazole Sodium (Protonix Ec Tab) 40 mg PO DAILY ANNETTE Risperidone (Risperdal Tab) 2 mg PO BID ANNETTE Thiamine HCl (Vitamin B1 Tab) 100 mg PO DAILY ANNETTE - Labs Labs: 04/13/18 07:20 04/13/18 07:20 - Constitutional Appears: Well, Non-toxic, No Acute Distress - Head Exam Head Exam: ATRAUMATIC, NORMAL INSPECTION, NORMOCEPHALIC - Eye Exam Eye Exam: EOMI, Normal appearance Pupil Exam: NORMAL ACCOMODATION, PERRL - ENT Exam ENT Exam: Mucous Membranes Moist - Respiratory Exam Respiratory Exam: Clear to Ausculation Bilateral, NORMAL BREATHING PATTERN. absent: Rales, Rhonchi, Wheezes - Cardiovascular Exam Cardiovascular Exam: +S1, +S2. absent: Irregular Rhythm, Murmur - GI/Abdominal Exam GI & Abdominal Exam: Soft, Normal Bowel Sounds - Extremities Exam Extremities Exam: Normal Inspection. absent: Calf Tenderness, Pedal Edema - Neurological Exam Neurological Exam: Alert, Awake, Oriented x3 Additional comments: No tremors present in B/L upper & lower extremities. - Psychiatric Exam Psychiatric exam: Normal Affect, Normal Mood - Skin Skin Exam: Dry, Intact, Normal Color, Warm Assessment and Plan - Assessment and Plan (Free Text) Assessment: 53 yr old male w/ PMHx alcohol use, DTs, thrombocytopenia, anemia of chronic disease, and paranoid schizophrenia presents to ED w/ dizziness resulting in a fall: Alcohol Intoxication Concern for Withdrawal, Hx DTs Thrombocytopenia Anemia of Chronic Disease - Patient states he would like detox - psych consulted - rec to atrend self- help groups, supportive therapy & psychoeducation - Alcohol level on admission 43 - UDS negative, lipase WNL - EKG- no sign of QTc prolongation, will continue to monitor - Seizure, Aspiration Precautions, CIWA Protocol - Echo 10/2017 was WNL; no abnormalities; please refer to full report - MV, thiamine, folic daily, Ativan PRN S/P Fall History of frequent falls - Head CT - negative for any intracranial hemorrhage Transaminitis - Likely 2/2 to alcohol use - Hepatitis panel negative from previous admission 01/2018 - Ab US - no evidence of cirrhosis - Avoid hepatoxic agents, will continue to monitor Paranoid Schizophrenia - Resumed Escitalopram [Lexapro] 10 mg PO DAILY, Gabapentin 300 mg PO BID, risperiDONE 2 mg PO BID - EKG- no sign of QTc prolongation, will continue to monitor Prophylactic Measures - Protonix 40 mg PO daily - SCDs, VTE c/i due to thrombocytopenia - PT - recommends gait training - OT - no OT needed - Case management for discharge planning as patient is homeless <Lauren Poe V - Last Filed: 04/16/18 18:24> Objective - Vital Signs/Intake and Output Vital Signs (last 24 hours): Temp Pulse Resp BP Pulse Ox 97.6 F 105 H 20 126/84 98 04/16/18 16:00 04/16/18 16:00 04/16/18 16:00 04/16/18 16:00 04/16/18 16:00 Intake and Output: 04/16/18 04/16/18 06:59 18:59 Intake Total 300 Output Total 500 Balance -200 - Medications Medications: Current Medications Dextrose (Dextrose 50% Inj) 0 ml IV STAT PRN; Protocol PRN Reason: Hypoglycemia Protocol Dextrose (Glutose 15) 0 gm PO ONCE PRN; Protocol PRN Reason: Hypoglycemia Protocol Docusate Sodium (Colace) 100 mg PO BID [facility] Last Admin: 04/16/18 18:19 Dose: 100 mg Escitalopram Oxalate (Lexapro) 10 mg PO DAILY [facility] Last Admin: 04/15/18 10:25 Dose: 10 mg Fluticasone Propionate (Flonase) 1 spr MESSI Q12 [facility] Last Admin: 04/16/18 09:27 Dose: 1 spr Folic Acid (Folic Acid) 1 mg PO DAILY [facility] Last Admin: 04/16/18 09:22 Dose: 1 mg Gabapentin (Neurontin) 300 mg PO BID [facility] Last Admin: 04/16/18 18:19 Dose: 300 mg Glucagon (Glucagen Diagnostic Kit) 0 mg IM STAT PRN; Protocol PRN Reason: Hypoglycemia Protocol Dextrose (Dextrose 5% In Water 1000 Ml) 1,000 mls @ 0 mls/hr IV .Q0M PRN; Protocol; Per Protocol PRN Reason: Hypoglycemia Protocol Multivitamins (Hexavitamin) 1 tab PO DAILY [facility] Last Admin: 04/16/18 09:22 Dose: 1 tab Pantoprazole Sodium (Protonix Ec Tab) 40 mg PO DAILY [facility] Last Admin: 04/16/18 12:25 Dose: 40 mg Risperidone (Risperdal Tab) 2 mg PO BID [facility] Last Admin: 04/15/18 10:21 Dose: 2 mg Thiamine HCl (Vitamin B1 Tab) 100 mg PO DAILY [facility] Last Admin: 04/16/18 09:26 Dose: 100 mg - Labs Labs: 04/16/18 06:51 04/16/18 06:51 Attending/Attestation - Attestation I have personally seen and examined this patient.: Yes I have fully participated in the care of the patient.: Yes I have reviewed all pertinent clinical information, including history, physical exam and plan: Yes Notes (Text): This is a late computer entry for 04/13/2018. Patient seen, examined, and case discussed with medical receptionist assistant. Patient is here for alcohol alcohol withdrawal. Patient is on Ativan taper. Psychiatry on board. Patient with a known history of thrombocytopenia secondary to the effect by alcohol on the bone marrow. we will continue to monitor. 1) Alcohol Intoxication Concern for Withdrawal, Monitor for DTs Thrombocytopenia Anemia of Chronic Disease Psychiatry (Dr. Ferro) on board-->help appreciated Gabapentin 300mg PO BID Ativan taper (Day 1) Ativan 1mg IVPQ4H PRN symptoms of alcohol withdrawal. Note: we are monitoring for DTs. patient is not in active DTs. Patient is undergoing alcohol withdrawal. Alcohol level on admission 43 UDS negative, lipase WNL EKG- no sign of QTc prolongation, will continue to monitor Seizure, Aspiration Precautions, CIWA Protocol Echo 10/2017 was WNL; no abnormalities; please refer to full report MV1 tab PO daily, thiamine 100mg PO daily, folic 1mg PO daily, Ativan PRN 2) S/P Fall History of frequent falls - Head CT - negative for any intracranial hemorrhage 3) Transaminitis - Likely 2/2 to alcohol use - Hepatitis panel negative from previous admission 01/2018 - Ab US - no evidence of cirrhosis - Avoid hepatoxic agents, will continue to monitor 4) Paranoid Schizophrenia - Resumed Escitalopram [Lexapro] 10 mg PO DAILY, Gabapentin 300 mg PO BID, risperiDONE 2 mg PO BID - EKG- no sign of QTc prolongation, will continue to monitor 5) Prophylactic Measures - Protonix 40 mg PO daily - SCDs, VTE c/i due to thrombocytopenia - PT - recommends gait training - OT - no OT needed - Case management for discharge planning as patient is homeless Disposition: Patient is on day 1 of ativan taper. Psych on board. Continue to monitor for DTs in the next 48-72 hours.
[2018-04-13] MEDS: Multiple Vitamins Tab PO SCH (10:35)
[2018-04-13] MEDS: Pantoprazole 40 mg EC Tab PO SCH (10:39)
--- NOTE | 2018-04-13 12:34 | PCM.PSYCH ---
Initial Psychiatric Evaluation - Initial Psychiatric Evaluation Type of Admission: Voluntary Legal Status: Capacity Chief Complaint (in patient's own words): "I'm OK" History of Present Illness and Precipitating Events: The pt is seen, chart reviewed, case discussed. Consult was asked for his alcohol wdw. He is known from previous consults and admissions. He is a poor historian. 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 He admits to having relapsed on alcohol but as before he minimizes his use. He often goes into DTs but today he was AOx3 and calm. The patient was previously hospitalized at [facility] in [place], for mental health issues. The patient was also hospitalized at [facility] in August 2017. He was depressed and paranoid, hearing voices. The patient was prescribed Seroquel, Zoloft and Gabepentin. The patient reports using alcohol about 1/2 pint of vodka daily. The patient denies any other substance use. He admits to not following with any psych clinic but was taking prescribed meds. Past psych hx: Two admissions. No suicide attempt, drinks more than 5 years, denies drugs/cigarettes Medical hx: Per chart Family Hx: Denied Current Medications: Active Medications Generic Name Dose Route Start Last Admin Trade Name Freq PRN Reason Stop Dose Admin Dextrose 0 ml 04/12/18 19:52 Dextrose 50% Inj IV STAT PRN Hypoglycemia Protocol Protocol Dextrose 0 gm 04/12/18 19:52 Glutose 15 PO ONCE PRN Hypoglycemia Protocol Protocol Escitalopram Oxalate 10 mg 04/13/18 10:00 04/13/18 10:35 Lexapro PO 10 mg DAILY ANNETTE Administration Fluticasone Propionate 1 spr 04/13/18 02:15 04/13/18 03:23 Flonase MESSI 1 spr Q12 ANNETTE Administration Folic Acid 1 mg 04/13/18 10:00 04/13/18 10:35 Folic Acid PO 1 mg DAILY ANNETTE Administration Gabapentin 300 mg 04/13/18 10:00 04/13/18 10:35 Neurontin PO 300 mg BID ANNETTE Administration Glucagon 0 mg 04/12/18 19:52 Glucagen Diagnostic Kit IM STAT PRN Hypoglycemia Protocol Protocol Sodium Chloride 1,000 mls @ 100 mls/hr 04/12/18 22:00 04/12/18 21:33 Sodium Chloride 0.9% IV 100 mls/hr .Q10H ANNETTE Administration Dextrose 1,000 mls @ 0 mls/hr 04/12/18 19:52 Dextrose 5% In Water 1000 Ml IV .Q0M PRN Hypoglycemia Protocol Protocol Per Protocol Lorazepam 1 mg 04/12/18 19:35 Ativan IVP Q4H PRN Symptoms of alcohol withdrawl Lorazepam 2 mg 04/13/18 04:00 04/13/18 03:24 Ativan PO 04/18/18 03:59 2 mg Q8H ANNETTE Administration Taper Multivitamins 1 tab 04/13/18 10:00 04/13/18 10:35 Hexavitamin PO 1 tab DAILY ANNETTE Administration Ondansetron HCl 4 mg 04/12/18 19:35 Zofran Inj IVP Q6 PRN Nausea/Vomiting Pantoprazole Sodium 40 mg 04/13/18 10:00 Protonix Ec Tab PO DAILY ANNETTE Risperidone 2 mg 04/13/18 10:00 04/13/18 10:35 Risperdal Tab PO 2 mg BID ANNETTE Administration Thiamine HCl 100 mg 04/13/18 10:00 04/13/18 10:35 Vitamin B1 Tab PO 100 mg DAILY ANNETTE Administration Past Psychiatric History - Past Psychiatric History Previous Treatment History: Inpatient Pertinent Medical Hx (Current Medical&Sleep Prob, Allergies): Allergies Allergy/AdvReac Type Severity Reaction Status Date / Time No Known Allergies Allergy Verified 04/12/18 15:13 Gabapentin [Neurontin] 100 mg PO BID 01/27/18 risperiDONE [RisperDAL Tab] 1 mg PO BID 01/27/18 Escitalopram [Lexapro] 10 mg PO DAILY #30 tab 02/07/18 traZODone [Desyrel] 100 mg PO HS #30 tab 02/07/18 Meclizine HCl [[employer]-Dram 2] 25 mg PO TID PRN #21 tablet 03/09/18 Review of Systems - Psychiatric Psychiatric: Abnormal Sleep Pattern, Anxiety, Difficulty Concentrating. absent : Homicidal Ideation, Paranoia, Suicidal Ideation Mental Status Examination - Personal Presentation Personal Presentation: Looks older than stated age - Affect Affect: Constricted - Motor Activity Motor Activity: Calm - Reliability in Providing Information Reliability in Providing Information: Fair - Speech Speech: Organized - Mood Mood: Anxious - Formal Thought Process Formal Thought Process: No Impairment - Cognitive Functions Orientation: Person, Place, Situation, Time Sensorium: Alert Attention/Concentration: Easily distracted Abstract Thinking: [place] Estimate of Intelligence: Below average Judgement: Intact, as evidence by: Insight regarding need for hospitalization Memory: Recent intact, as evidence by: Ability to recall events of the day, Remote impaired as evidenced by: Inability to recall sig life events - Risk Risk: Withdrawal, Diminished functioning - Strength & Assets Inventory Strength & Assets Inventory: Cooperative - Limitations Limitations: Living alone DSM 5 DX - DSM 5 DSM 5 Diagnosis: Schizoaffective d/o - depressed Alcohol withdrawal Alcohol use d/o - severe - Recommended/Plan of Treatment Treatment Recommendations and Plan of Treatment: Ativan detox started already As needed medications Gabapentin for augmentation if needed All risks, benefits and alternatives of medications, including no medications, discussed and the patient understood and agreed. Supportive therapy and psychoeducation [place] for abstinence Encourage MAT (antabuse, naltrexone), rehab or IOP Attend self-help groups as well Risperdal for psychosis Lexapro for depression CBT and support 34 min
--- NOTE | 2018-04-13 17:09 | CARD ---
APPROVED REPORT Date of service: 04/12/2018 EKG Measurement Heart [id number] <Conclusion> Normal sinus rhythm Minimal voltage criteria for LVH, may be normal variant Nonspecific T wave abnormality Abnormal ECG
[2018-04-13] MEDS: Sodium Chloride 0.9% 1,000 ML IV SCH (17:24)
[2018-04-14] MEDS: Sodium Chloride 0.9% 1,000 ML IV SCH (04:02)
--- NOTE | 2018-04-14 06:21 | CP.PCM.PN ---
<ChenteCarlos M - Last Filed: 04/14/18 21:28> Subjective - Date & Time of Evaluation Date of Evaluation: 04/14/18 Time of Evaluation: 20:00 - Subjective Subjective: PGY [address] Poe. Patient seen and examined at bedside. Pt lying in bed, sleeping, unarousable. Per nurse, patient was agitated overnight including urinating on the wall and walking on the bed. Patient needed 2 additional doses of ativan IV in addition to the ativan taper. Pt also had moments of tachycardia that was controlled with the ativan. Objective - Vital Signs/Intake and Output Vital Signs (last 24 hours): Temp Pulse Resp BP Pulse Ox 98.2 F 76 20 160/93 H 97 04/13/18 23:20 04/13/18 23:49 04/13/18 23:20 04/13/18 23:20 04/13/18 23:49 Intake and Output: 04/13/18 04/14/18 18:59 06:59 Intake Total 1000 500 Output Total 650 350 Balance 350 150 - Medications Medications: Current Medications Dextrose (Dextrose 50% Inj) 0 ml IV STAT PRN; Protocol PRN Reason: Hypoglycemia Protocol Dextrose (Glutose 15) 0 gm PO ONCE PRN; Protocol PRN Reason: Hypoglycemia Protocol Escitalopram Oxalate (Lexapro) 10 mg PO DAILY [facility] Last Admin: 04/13/18 10:35 Dose: 10 mg Fluticasone Propionate (Flonase) 1 spr MESSI Q12 [facility] Last Admin: 04/13/18 21:32 Dose: Not Given Folic Acid (Folic Acid) 1 mg PO DAILY [facility] Last Admin: 04/13/18 10:35 Dose: 1 mg Gabapentin (Neurontin) 300 mg PO BID [facility] Last Admin: 04/13/18 17:24 Dose: 300 mg Glucagon (Glucagen Diagnostic Kit) 0 mg IM STAT PRN; Protocol PRN Reason: Hypoglycemia Protocol Sodium Chloride (Sodium Chloride 0.9%) 1,000 mls @ 100 mls/hr IV .Q10H [facility] Last Admin: 04/14/18 04:02 Dose: Not Given Dextrose (Dextrose 5% In Water 1000 Ml) 1,000 mls @ 0 mls/hr IV .Q0M PRN; Protocol; Per Protocol PRN Reason: Hypoglycemia Protocol Lorazepam (Ativan) 1 mg IVP Q4H PRN PRN Reason: Symptoms of alcohol withdrawl Last Admin: 04/14/18 05:54 Dose: 1 mg Lorazepam (Ativan) 1 mg PO Q6H [facility] PRN Reason: Taper Stop: 04/18/18 03:59 Last Admin: 04/14/18 03:12 Dose: 1 mg Multivitamins (Hexavitamin) 1 tab PO DAILY [facility] Last Admin: 04/13/18 10:35 Dose: 1 tab Ondansetron HCl (Zofran Inj) 4 mg IVP Q6 PRN PRN Reason: Nausea/Vomiting Pantoprazole Sodium (Protonix Ec Tab) 40 mg PO DAILY [facility] Last Admin: 04/13/18 10:39 Dose: 40 mg Risperidone (Risperdal Tab) 2 mg PO BID [facility] Last Admin: 04/13/18 17:24 Dose: 2 mg Thiamine HCl (Vitamin B1 Tab) 100 mg PO DAILY [facility] Last Admin: 04/13/18 10:35 Dose: 100 mg - Labs Labs: 04/13/18 07:20 04/13/18 07:20 - Head Exam Head Exam: ATRAUMATIC, NORMAL INSPECTION, NORMOCEPHALIC - Eye Exam Eye Exam: PERRL - ENT Exam ENT Exam: Mucous Membranes Moist - Respiratory Exam Respiratory Exam: Clear to Ausculation Bilateral, NORMAL BREATHING PATTERN. absent: Rales, Rhonchi, Wheezes - Cardiovascular Exam Cardiovascular Exam: +S1, +S2. absent: Irregular Rhythm, Murmur - GI/Abdominal Exam GI & Abdominal Exam: Soft, Normal Bowel Sounds. absent: Distended, Firm, Guarding - Extremities Exam Extremities Exam: Full ROM, Normal Capillary Refill, Normal Inspection. absent : Calf Tenderness, Pedal Edema - Neurological Exam Neurological Exam: Altered - Skin Skin Exam: Dry, Normal Color, Warm Assessment and Plan - Assessment and Plan (Free Text) Assessment: 53 yr old male w/ PMHx alcohol use, DTs, thrombocytopenia, anemia of chronic disease, and paranoid schizophrenia presents to ED w/ dizziness resulting in a fall: Alcohol Intoxication Concern for Withdrawal, Hx DTs Thrombocytopenia Anemia of Chronic Disease 04/14: - Pt likely having delirium tremens, given 2 doses of 1 mg ativan through 04/13 to 04/14 night - continue to monitor, tachycardia w/in control following ativan - continue to monitor platelets 55-> 46 - >38 04/13: - Patient states he would like detox - psych consulted - rec to atrend self- help groups, supportive therapy & psychoeducation - Alcohol level on admission 43 - UDS negative, lipase WNL - EKG- no sign of QTc prolongation, will continue to monitor - Seizure, Aspiration Precautions, CIWA Protocol - Echo 10/2017 was WNL; no abnormalities; please refer to full report - MV, thiamine, folic daily, Ativan PRN S/P Fall History of frequent falls - Head CT - negative for any intracranial hemorrhage Transaminitis - Likely 2/2 to alcohol use - Hepatitis panel negative from previous admission 01/2018 - Ab US - no evidence of cirrhosis - Avoid hepatoxic agents, will continue to monitor Paranoid Schizophrenia - Resumed Escitalopram [Lexapro] 10 mg PO DAILY, Gabapentin 300 mg PO BID, risperiDONE 2 mg PO BID - EKG- no sign of QTc prolongation, will continue to monitor Prophylactic Measures - Protonix 40 mg PO daily - SCDs, VTE c/i due to thrombocytopenia - PT - recommends gait training - OT - no OT needed - Case management for discharge planning as patient is homeless <Lauren Poe V - Last Filed: 04/16/18 18:20> Objective - Vital Signs/Intake and Output Vital Signs (last 24 hours): Temp Pulse Resp BP Pulse Ox 97.6 F 105 H 20 126/84 98 04/16/18 16:00 04/16/18 16:00 04/16/18 16:00 04/16/18 16:00 04/16/18 16:00 Intake and Output: 04/16/18 04/16/18 06:59 18:59 Intake Total 300 Output Total 500 Balance -200 - Medications Medications: Current Medications Dextrose (Dextrose 50% Inj) 0 ml IV STAT PRN; Protocol PRN Reason: Hypoglycemia Protocol Dextrose (Glutose 15) 0 gm PO ONCE PRN; Protocol PRN Reason: Hypoglycemia Protocol Docusate Sodium (Colace) 100 mg PO BID [facility] Escitalopram Oxalate (Lexapro) 10 mg PO DAILY [facility] Last Admin: 04/15/18 10:25 Dose: 10 mg Fluticasone Propionate (Flonase) 1 spr MESSI Q12 ANNETTE Last Admin: 04/16/18 09:27 Dose: 1 spr Folic Acid (Folic Acid) 1 mg PO DAILY [facility] Last Admin: 04/16/18 09:22 Dose: 1 mg Gabapentin (Neurontin) 300 mg PO BID [facility] Last Admin: 04/16/18 09:22 Dose: 300 mg Glucagon (Glucagen Diagnostic Kit) 0 mg IM STAT PRN; Protocol PRN Reason: Hypoglycemia Protocol Dextrose (Dextrose 5% In Water 1000 Ml) 1,000 mls @ 0 mls/hr IV .Q0M PRN; Protocol; Per Protocol PRN Reason: Hypoglycemia Protocol Multivitamins (Hexavitamin) 1 tab PO DAILY [facility] Last Admin: 04/16/18 09:22 Dose: 1 tab Pantoprazole Sodium (Protonix Ec Tab) 40 mg PO DAILY [facility] Last Admin: 04/16/18 12:25 Dose: 40 mg Risperidone (Risperdal Tab) 2 mg PO BID [facility] Last Admin: 04/15/18 10:21 Dose: 2 mg Thiamine HCl (Vitamin B1 Tab) 100 mg PO DAILY [facility] Last Admin: 04/16/18 09:26 Dose: 100 mg - Labs Labs: 04/16/18 06:51 04/16/18 06:51 Attending/Attestation - Attestation I have personally seen and examined this patient.: Yes I have fully participated in the care of the patient.: Yes I have reviewed all pertinent clinical information, including history, physical exam and plan: Yes Notes (Text): This is a late computer entry for 04/14/2018. Patient seen, examined, and case discussed with medical services assistant. Patient seen during morning labs discussed with nursing patient was prior to my arrival urinating on the nagel and had mild tremors. Please note addendum for resident note patient is not in acute DTs patient has both alcoholic hallucinosis and a history of schizophrenia however he is in the timeline for acute DTs. Patient ordered for one-to-one for behavioral disturbance. Patient given additional doses of Ativan. Patient noted to be tachycardic on telemetry. Will renew telemetry 1) Alcohol Intoxication Concern for Withdrawal, Monitor for DTs Thrombocytopenia Anemia of Chronic Disease 04/14: Patient noted for urinating on the nagel. Patient has tremors. Patient required additional Ativan doses. Patient was tachycardic during this period. Telemetry renewed. Behavioral disturbance 1-1 added. Gabapentin 300mg PO BID Ativan taper (Day 2) Ativan 1mg IVPQ4H PRN symptoms of alcohol withdrawal. Will renew telemetry. Note: we are monitoring for DTs. patient is not in active DTs. Patient is undergoing alcohol withdrawal. Alcohol level on admission 43 UDS negative, lipase WNL EKG- no sign of QTc prolongation, will continue to monitor Seizure, Aspiration Precautions, CIWA Protocol Echo 10/2017 was WNL; no abnormalities; please refer to full report MV1 tab PO daily, thiamine 100mg PO daily, folic 1mg PO daily, Ativan PRN 2) S/P Fall History of frequent falls - Head CT - negative for any intracranial hemorrhage 3) Transaminitis - Likely 2/2 to alcohol use - Hepatitis panel negative from previous admission 01/2018 - Ab US - no evidence of cirrhosis - Avoid hepatoxic agents, will continue to monitor 4) Paranoid Schizophrenia - Resumed Escitalopram [Lexapro] 10 mg PO DAILY, Gabapentin 300 mg PO BID, risperiDONE 2 mg PO BID - EKG- no sign of QTc prolongation, will continue to monitor 5) Prophylactic Measures - Protonix 40 mg PO daily - SCDs, VTE c/i due to thrombocytopenia - PT - recommends gait training - OT - no OT needed - Case management for discharge planning as patient is homeless - Added 1:1 behavioral disturbance secondary to urinating on the nagel on Disposition: Patient is on day 2 of ativan taper. Renew telemery. Psych on board. 1:1 added during to behavioral event.
[2018-04-14 06:55] LABS: BASO % 0.5 % (0.0-2.0); EOS # 0.1 K/uL (0.0-0.7); EOS % 1.2 % (0.0-4.0); HEMOGLOBIN 13.1 g/dL (12.0-18.0); LYMPH # 1.8 K/uL (1.0-4.3); LYMPH % 29.2 % (20.0-40.0); MEAN CELL VOLUME 89.6 fL (80.0-94.0); MEAN CORPUSCULAR HEMOGLOBIN 30.3 pg (27.0-31.0); MEAN CORPUSCULAR HGB CONC 33.9 g/dL (33.0-37.0); MEAN PLATELET VOLUME 8.7 fL (7.2-11.7); MONO # 0.3 K/uL (0.0-0.8); MONO % 4.5 % (0.0-10.0); NEUT # 3.9 K/uL (1.8-7.0); NEUT % 64.6 % (50.0-75.0); NRBC % 0.1 % (0.0-2.0); RBC 4.3 Mil/uL (4.40-5.90); RED CELL DISTRIBUTION WIDTH 16.2 % (11.5-14.5)
[2018-04-14 07:35] LABS: ALB/GLOB RATIO 1.2 (1.0-2.1); ALBUMIN 4.4 g/dL (3.5-5.0); ALT/SGPT 75 U/L (21-72); AST/SGOT 95 U/L (17-59); BLOOD UREA NITROGEN 6 mg/dL (9-20); CALCIUM 9.6 mg/dl (8.6-10.4); GFR AFRICAN-AMERICAN > 60; GFR NON-AFRICAN AMERICAN > 60
[2018-04-14] MEDS: Pantoprazole 40 mg EC Tab PO SCH (09:57)
[2018-04-14] MEDS: Fluticasone Nasal 50 mcg/Spray NAS SCH ×2 (09:57→21:09)
[2018-04-14] MEDS: Multiple Vitamins Tab PO SCH (10:00)
--- NOTE | 2018-04-14 14:22 | PCM.PYCHPN ---
Psychiatric Progress Note - Psychiatric Progress Note Patient seen today, length of contact: 16 min Patient Chief Complaint: "OK" Problems Identified/Issues Discussed: Pt is seen, chart reviewed He is, as before, in DT again - confused periodically, disoriented, restless, erratic (urinated all over) and has elevated VS Will get extra ativan Support given Medication Change: Yes (detox changes daily) Medical Record Reviewed: Yes Mental Status Examination - Cognitive Function Orientation: Person, Place, Situation, Time Memory: Impaired Attention: Poor Concentration: Poor Association: Loose Fund of Knowledge: Poor - Mood Mood: Anxious - Affect Affect: Constricted - Speech Speech: Slurred - Formal Thought Process Formal Thought Process: No Impairment - Suicidal Ideation Suicidal Ideation: No - Homicidal Ideation Homicidal Ideation: No Goal/Treatment Plan - Goal/Treatment Plan Need for Continued Stay: Discharge may exacerbated symptoms, Severe functional impairment Progress Toward Problem(s) and Goals/Treatment Plan: Ativan detox started already, will give extra doses due to DT As needed medications Gabapentin for augmentation if needed All risks, benefits and alternatives of medications, including no medications, discussed and the patient understood and agreed. Supportive therapy and psychoeducation [place] for abstinence Encourage MAT (antabuse, naltrexone), rehab or IOP Attend self-help groups as well Risperdal for psychosis Lexapro for depression CBT and support
[2018-04-14 16:13] VITALS: RESP 20
--- NOTE | 2018-04-15 06:29 | CP.PCM.PN ---
<Carlos Eldridge M - Last Filed: 04/15/18 19:10> Subjective - Date & Time of Evaluation Date of Evaluation: 04/15/18 Time of Evaluation: 07:15 - Subjective Subjective: PGY1 Resident Note for Dr. Poe. Patient seen and examined bedside. Patient did not need any overnight ativan addition. Patient does not have any complaints and denies chest pain, SOB, abdominal pain. Patient had runs of tachycardia overnight in 110s. Objective - Vital Signs/Intake and Output Vital Signs (last 24 hours): Temp Pulse Resp BP Pulse Ox 98.6 F 92 H 20 148/103 H 99 04/15/18 04:45 04/15/18 04:45 04/15/18 04:45 04/15/18 04:45 04/15/18 04:45 Intake and Output: 04/14/18 04/15/18 18:59 06:59 Intake Total 650 Output Total 900 Balance -250 - Medications Medications: Current Medications Dextrose (Dextrose 50% Inj) 0 ml IV STAT PRN; Protocol PRN Reason: Hypoglycemia Protocol Dextrose (Glutose 15) 0 gm PO ONCE PRN; Protocol PRN Reason: Hypoglycemia Protocol Escitalopram Oxalate (Lexapro) 10 mg PO DAILY [facility] Last Admin: 04/14/18 09:57 Dose: 10 mg Fluticasone Propionate (Flonase) 1 spr MESSI Q12 [facility] Last Admin: 04/14/18 21:09 Dose: 1 spr Folic Acid (Folic Acid) 1 mg PO DAILY [facility] Last Admin: 04/14/18 10:00 Dose: 1 mg Gabapentin (Neurontin) 300 mg PO BID [facility] Last Admin: 04/14/18 17:51 Dose: 300 mg Glucagon (Glucagen Diagnostic Kit) 0 mg IM STAT PRN; Protocol PRN Reason: Hypoglycemia Protocol Hydralazine HCl (Apresoline) 10 mg IVP Q6H PRN PRN Reason: Systolic Blood Pressure Dextrose (Dextrose 5% In Water 1000 Ml) 1,000 mls @ 0 mls/hr IV .Q0M PRN; Protocol; Per Protocol PRN Reason: Hypoglycemia Protocol Lorazepam (Ativan) 1 mg IVP Q4H PRN PRN Reason: Symptoms of alcohol withdrawl Last Admin: 04/14/18 11:04 Dose: 1 mg Lorazepam (Ativan) 1 mg PO Q8H [facility] PRN Reason: Taper Stop: 04/18/18 03:59 Last Admin: 04/15/18 04:01 Dose: 1 mg Multivitamins (Hexavitamin) 1 tab PO DAILY [facility] Last Admin: 04/14/18 10:00 Dose: 1 tab Ondansetron HCl (Zofran Inj) 4 mg IVP Q6 PRN PRN Reason: Nausea/Vomiting Pantoprazole Sodium (Protonix Ec Tab) 40 mg PO DAILY [facility] Last Admin: 04/14/18 09:57 Dose: 40 mg Risperidone (Risperdal Tab) 2 mg PO BID [facility] Last Admin: 04/14/18 17:50 Dose: 2 mg Thiamine HCl (Vitamin B1 Tab) 100 mg PO DAILY [facility] Last Admin: 04/14/18 09:57 Dose: 100 mg - Labs Labs: 04/14/18 06:44 04/14/18 06:44 - Constitutional Appears: Non-toxic, No Acute Distress - Head Exam Head Exam: ATRAUMATIC, NORMAL INSPECTION, NORMOCEPHALIC - Eye Exam Eye Exam: EOMI, Normal appearance Pupil Exam: NORMAL ACCOMODATION - ENT Exam ENT Exam: Mucous Membranes Moist - Respiratory Exam Respiratory Exam: Clear to Ausculation Bilateral, NORMAL BREATHING PATTERN. absent: Rales, Rhonchi, Wheezes - Cardiovascular Exam Cardiovascular Exam: +S1, +S2. absent: Irregular Rhythm, Murmur - GI/Abdominal Exam GI & Abdominal Exam: Soft, Normal Bowel Sounds. absent: Firm, Rigid - Extremities Exam Extremities Exam: absent: Calf Tenderness, Pedal Edema Additional comments: Patient has discoloration of soles of feet from walking barefoot outdoors. - Neurological Exam Neurological Exam: Alert, Awake - Psychiatric Exam Psychiatric exam: Flat Affect, Normal Mood - Skin Skin Exam: Dry, Intact, Normal Color, Warm Assessment and Plan - Assessment and Plan (Free Text) Assessment: 53 yr old male w/ PMHx alcohol use, DTs, thrombocytopenia, anemia of chronic disease, and paranoid schizophrenia presents to ED w/ dizziness resulting in a fall: Alcohol Intoxication Concern for Withdrawal, Hx DTs Thrombocytopenia Anemia of Chronic Disease 04/15: - Pt having tachycardia, likely alcohol withdrawal, given clonidine 0.1mg, HR controlled - continue to monitor, likely D/C tomorrow - renew telemetry, continue one to one - Ativan taper (day 3) - Ativan 1mg IVP PRN for symptoms of alcohol withdrawal - f/u w/ psych 04/14: - Pt likely having delirium tremens, given 2 doses of 1 mg ativan through 04/13 to 04/14 night - continue to monitor, tachycardia w/in control following ativan - continue to monitor platelets 55-> 46 - >38 04/13: - Patient states he would like detox - psych consulted - rec to atrend self- help groups, supportive therapy & psychoeducation - Alcohol level on admission 43 - UDS negative, lipase WNL - EKG- no sign of QTc prolongation, will continue to monitor - Seizure, Aspiration Precautions, CIWA Protocol - Echo 10/2017 was WNL; no abnormalities; please refer to full report - MV, thiamine, folic daily, Ativan PRN S/P Fall History of frequent falls - Head CT - negative for any intracranial hemorrhage Transaminitis 04/15: - AST/ALT elevated in 200s+, continue to monitor 04/14: - Likely 10/29 to alcohol use - Hepatitis panel negative from previous admission 01/2018 - Ab US - no evidence of cirrhosis - Avoid hepatoxic agents, will continue to monitor Paranoid Schizophrenia - Resumed Escitalopram [Lexapro] 10 mg PO DAILY, Gabapentin 300 mg PO BID, risperiDONE 2 mg PO BID - EKG- no sign of QTc prolongation, will continue to monitor Prophylactic Measures - Protonix 40 mg PO daily - SCDs, VTE c/i due to thrombocytopenia - PT - recommends gait training - OT - no OT needed - Case management for discharge planning as patient is homeless <Lauren Poe V - Last Filed: 04/16/18 18:13> Objective - Vital Signs/Intake and Output Vital Signs (last 24 hours): Temp Pulse Resp BP Pulse Ox 97.6 F 105 H 20 126/84 98 04/16/18 16:00 04/16/18 16:00 04/16/18 16:00 04/16/18 16:00 04/16/18 16:00 Intake and Output: 04/16/18 04/16/18 06:59 18:59 Intake Total 300 Output Total 500 Balance -200 - Medications Medications: Current Medications Dextrose (Dextrose 50% Inj) 0 ml IV STAT PRN; Protocol PRN Reason: Hypoglycemia Protocol Dextrose (Glutose 15) 0 gm PO ONCE PRN; Protocol PRN Reason: Hypoglycemia Protocol Docusate Sodium (Colace) 100 mg PO BID [facility] Escitalopram Oxalate (Lexapro) 10 mg PO DAILY [facility] Last Admin: 04/15/18 10:25 Dose: 10 mg Fluticasone Propionate (Flonase) 1 spr MESSI Q12 [facility] Last Admin: 04/16/18 09:27 Dose: 1 spr Folic Acid (Folic Acid) 1 mg PO DAILY [facility] Last Admin: 04/16/18 09:22 Dose: 1 mg Gabapentin (Neurontin) 300 mg PO BID [facility] Last Admin: 04/16/18 09:22 Dose: 300 mg Glucagon (Glucagen Diagnostic Kit) 0 mg IM STAT PRN; Protocol PRN Reason: Hypoglycemia Protocol Dextrose (Dextrose 5% In Water 1000 Ml) 1,000 mls @ 0 mls/hr IV .Q0M PRN; Protocol; Per Protocol PRN Reason: Hypoglycemia Protocol Multivitamins (Hexavitamin) 1 tab PO DAILY [facility] Last Admin: 04/16/18 09:22 Dose: 1 tab Pantoprazole Sodium (Protonix Ec Tab) 40 mg PO DAILY [facility] Last Admin: 04/16/18 12:25 Dose: 40 mg Risperidone (Risperdal Tab) 2 mg PO BID [facility] Last Admin: 04/15/18 10:21 Dose: 2 mg Thiamine HCl (Vitamin B1 Tab) 100 mg PO DAILY [facility] Last Admin: 04/16/18 09:26 Dose: 100 mg - Labs Labs: 04/16/18 06:51 04/16/18 06:51 Attending/Attestation - Attestation I have personally seen and examined this patient.: Yes I have fully participated in the care of the patient.: Yes I have reviewed all pertinent clinical information, including history, physical exam and plan: Yes Notes (Text): This is late computer entry for 04/15/18. Patient seen, examined and case discussed with day-time resident. Please refer to my progress note for the same day. Note: addendum we will need to monitor liver function tests given acute rise in spite of recent alcohol use/withdrawal. Held Lexapro and Respirdal. 1) Alcohol Intoxication Concern for Withdrawal, Monitor for DTs Thrombocytopenia Anemia of Chronic Disease 04/15: patient is improved compared to yesterday. patient has minimal tremors. Very calm. Patient has 1:1 placed for behavioral since he urinated on the nagel. Patient order for Clonidine 0.1mg PO X1. Gabapentin 300mg PO BID Ativan taper (Day 3) Ativan 1mg IVPQ4H PRN symptoms of alcohol withdrawal. Will renew telemetry. We will f/u with psych in regards to when is stable for discharge. Note: we are monitoring for DTs. patient is not in active DTs. Patient is undergoing alcohol withdrawal. Alcohol level on admission 43 UDS negative, lipase WNL EKG- no sign of QTc prolongation, will continue to monitor Seizure, Aspiration Precautions, CIWA Protocol Echo 10/2017 was WNL; no abnormalities; please refer to full report MV1 tab PO daily, thiamine 100mg PO daily, folic 1mg PO daily, Ativan PRN 2) S/P Fall History of frequent falls - Head CT - negative for any intracranial hemorrhage 3) Transaminitis - Likely 2/2 to alcohol use - Hepatitis panel negative from previous admission 01/2018 - Ab US - no evidence of cirrhosis - Avoid hepatoxic agents, will continue to monitor 4) Paranoid Schizophrenia - Resumed Escitalopram [Lexapro] 10 mg PO DAILY, Gabapentin 300 mg PO BID, risperiDONE 2 mg PO BID - EKG- no sign of QTc prolongation, will continue to monitor 5) Prophylactic Measures - Protonix 40 mg PO daily - SCDs, VTE c/i due to thrombocytopenia - PT - recommends gait training - OT - no OT needed - Case management for discharge planning as patient is homeless - 1:1 behavioral disturbance secondary to urinating on the nagel on 04/14/18 Disposition: Patient is on day 3 of ativan taper. We will follow-up with psych.
--- NOTE | 2018-04-15 10:18 | CP.PCM.PN ---
Subjective - Date & Time of Evaluation Date of Evaluation: 04/15/18 Time of Evaluation: 10:15 - Subjective Subjective: Medical Attending Note: Patient denies headache, denies chest pain, denies palpitations, denies abdominal pain, denies nausea, denies vomitting, reports he had a bowel movement in the bathroom confirmed with clinical partner, and reports he has not urinated yet. Patient on the telemetry: 125--> order for clonidine 0.1mg PO X1. Patient is not symptomatic with mild tremors. patient is requesting to go home. I have indicated to him his heart rate is too high and likely due to his withdrawal. Objective - Vital Signs/Intake and Output Vital Signs (last 24 hours): Temp Pulse Resp BP Pulse Ox 98 F 102 H 20 121/87 97 04/15/18 08:00 04/15/18 08:00 04/15/18 08:00 04/15/18 08:00 04/15/18 08:00 Intake and Output: 04/15/18 04/15/18 06:59 18:59 Intake Total 650 Output Total 900 Balance -250 - Medications Medications: Current Medications Dextrose (Dextrose 50% Inj) 0 ml IV STAT PRN; Protocol PRN Reason: Hypoglycemia Protocol Dextrose (Glutose 15) 0 gm PO ONCE PRN; Protocol PRN Reason: Hypoglycemia Protocol Escitalopram Oxalate (Lexapro) 10 mg PO DAILY [facility] Last Admin: 04/14/18 09:57 Dose: 10 mg Fluticasone Propionate (Flonase) 1 spr MESSI Q12 [facility] Last Admin: 04/14/18 21:09 Dose: 1 spr Folic Acid (Folic Acid) 1 mg PO DAILY [facility] Last Admin: 04/14/18 10:00 Dose: 1 mg Gabapentin (Neurontin) 300 mg PO BID [facility] Last Admin: 04/14/18 17:51 Dose: 300 mg Glucagon (Glucagen Diagnostic Kit) 0 mg IM STAT PRN; Protocol PRN Reason: Hypoglycemia Protocol Hydralazine HCl (Apresoline) 10 mg IVP Q6H PRN PRN Reason: Systolic Blood Pressure Dextrose (Dextrose 5% In Water 1000 Ml) 1,000 mls @ 0 mls/hr IV .Q0M PRN; Protocol; Per Protocol PRN Reason: Hypoglycemia Protocol Lorazepam (Ativan) 1 mg IVP Q4H PRN PRN Reason: Symptoms of alcohol withdrawl Last Admin: 04/14/18 11:04 Dose: 1 mg Lorazepam (Ativan) 1 mg PO Q8H [facility] PRN Reason: Taper Stop: 04/18/18 03:59 Last Admin: 04/15/18 04:01 Dose: 1 mg Multivitamins (Hexavitamin) 1 tab PO DAILY [facility] Last Admin: 04/14/18 10:00 Dose: 1 tab Ondansetron HCl (Zofran Inj) 4 mg IVP Q6 PRN PRN Reason: Nausea/Vomiting Pantoprazole Sodium (Protonix Ec Tab) 40 mg PO DAILY [facility] Last Admin: 04/14/18 09:57 Dose: 40 mg Risperidone (Risperdal Tab) 2 mg PO BID [facility] Last Admin: 04/14/18 17:50 Dose: 2 mg Thiamine HCl (Vitamin B1 Tab) 100 mg PO DAILY [facility] Last Admin: 04/14/18 09:57 Dose: 100 mg - Labs Labs: 04/14/18 06:44 04/14/18 06:44 - Constitutional Appears: Non-toxic, No Acute Distress - Head Exam Head Exam: NORMAL INSPECTION - Eye Exam Eye Exam: EOMI - ENT Exam ENT Exam: Mucous Membranes Moist - Respiratory Exam Respiratory Exam: Clear to Ausculation Bilateral, NORMAL BREATHING PATTERN. absent: Rales, Rhonchi, Wheezes - Cardiovascular Exam Cardiovascular Exam: Tachycardia, +S1, +S2 - GI/Abdominal Exam GI & Abdominal Exam: Soft, Normal Bowel Sounds. absent: Distended, Firm, Guarding, Rigid, Tenderness, Rebound - Extremities Exam Extremities Exam: absent: Pedal Edema, Tenderness - Neurological Exam Neurological Exam: Alert, Awake, Oriented x3 - Psychiatric Exam Psychiatric exam: Normal Affect, Normal Mood - Skin Skin Exam: Dry, Intact, Normal Color, Warm Assessment and Plan - Assessment and Plan (Free Text) Assessment: 1) Alcohol Intoxication Concern for Withdrawal, Monitor for DTs Thrombocytopenia Anemia of Chronic Disease 04/15: patient is improved compared to yesterday. patient has minimal tremors. Very calm. Patient has 1:1 placed for behavioral since he urinated on the nagel. Patient order for Clonidine 0.1mg PO X1. Gabapentin 300mg PO BID Ativan taper (Day 3) Ativan 1mg IVPQ4H PRN symptoms of alcohol withdrawal. Will renew telemetry. We will f/u with psych in regards to when is stable for discharge. Note: we are monitoring for DTs. patient is not in active DTs. Patient is undergoing alcohol withdrawal. Alcohol level on admission 43 UDS negative, lipase WNL EKG- no sign of QTc prolongation, will continue to monitor Seizure, Aspiration Precautions, CIWA Protocol Echo 10/2017 was WNL; no abnormalities; please refer to full report MV1 tab PO daily, thiamine 100mg PO daily, folic 1mg PO daily, Ativan PRN 2) S/P Fall History of frequent falls - Head CT - negative for any intracranial hemorrhage 3) Transaminitis - Likely 2/2 to alcohol use - Hepatitis panel negative from previous admission 01/2018 - Ab [place] - no evidence of cirrhosis - Avoid hepatoxic agents, will continue to monitor 4) Paranoid Schizophrenia - Resumed Escitalopram [Lexapro] 10 mg PO DAILY, Gabapentin 300 mg PO BID, risperiDONE 2 mg PO BID - EKG- no sign of QTc prolongation, will continue to monitor 5) Prophylactic Measures - Protonix 40 mg PO daily - SCDs, VTE c/i due to thrombocytopenia - PT - recommends gait training - OT - no OT needed - Case management for discharge planning as patient is homeless - 1:1 behavioral disturbance secondary to urinating on the nagel on 04/14/18 Disposition: Patient is on day 3 of ativan taper. We will follow-up with psych.
[2018-04-15] MEDS: Multiple Vitamins Tab PO SCH (10:21)
[2018-04-15] MEDS: Fluticasone Nasal 50 mcg/Spray NAS SCH ×2 (10:22→21:06)
[2018-04-15] MEDS: Pantoprazole 40 mg EC Tab PO SCH (10:30)
[2018-04-15 11:13] LABS: BASO % 0.8 % (0.0-2.0); EOS # 0.2 K/uL (0.0-0.7); EOS % 3.7 % (0.0-4.0); HEMOGLOBIN 14.8 g/dL (12.0-18.0); LYMPH # 1.8 K/uL (1.0-4.3); LYMPH % 32.1 % (20.0-40.0); MEAN CELL VOLUME 89.2 fL (80.0-94.0); MEAN CORPUSCULAR HEMOGLOBIN 30.5 pg (27.0-31.0); MEAN CORPUSCULAR HGB CONC 34.1 g/dL (33.0-37.0); MEAN PLATELET VOLUME 9.2 fL (7.2-11.7); MONO # 0.3 K/uL (0.0-0.8); MONO % 4.6 % (0.0-10.0); NEUT # 3.2 K/uL (1.8-7.0); NEUT % 58.8 % (50.0-75.0); NRBC % 0.2 % (0.0-2.0); RBC 4.85 Mil/uL (4.40-5.90); RED CELL DISTRIBUTION WIDTH 16.5 % (11.5-14.5); WHITE BLOOD COUNT 5.5 K/uL (4.8-10.8)
[2018-04-15 11:36] LABS: ALB/GLOB RATIO 1.2 (1.0-2.1); ALBUMIN 4.7 g/dL (3.5-5.0); ALT/SGPT 211 U/L (21-72); AST/SGOT 342 U/L (17-59); BLOOD UREA NITROGEN 10 mg/dL (9-20); CALCIUM 10.1 mg/dl (8.6-10.4); GFR AFRICAN-AMERICAN > 60; GFR NON-AFRICAN AMERICAN > 60
[2018-04-16 06:57] LABS: BASO % 0.9 % (0.0-2.0); EOS # 0.2 K/uL (0.0-0.7); EOS % 4.1 % (0.0-4.0); HEMOGLOBIN 14.4 g/dL (12.0-18.0); LYMPH # 2.5 K/uL (1.0-4.3); LYMPH % 44.5 % (20.0-40.0); MEAN CELL VOLUME 90.2 fL (80.0-94.0); MEAN CORPUSCULAR HEMOGLOBIN 30.9 pg (27.0-31.0); MEAN CORPUSCULAR HGB CONC 34.3 g/dL (33.0-37.0); MEAN PLATELET VOLUME 8.7 fL (7.2-11.7); MONO # 0.2 K/uL (0.0-0.8); MONO % 4.3 % (0.0-10.0); NEUT # 2.6 K/uL (1.8-7.0); NEUT % 46.2 % (50.0-75.0); NRBC % 0.1 % (0.0-2.0); RBC 4.66 Mil/uL (4.40-5.90); RED CELL DISTRIBUTION WIDTH 16.8 % (11.5-14.5); WHITE BLOOD COUNT 5.7 K/uL (4.8-10.8)
[2018-04-16 07:38] LABS: ALB/GLOB RATIO 1.2 (1.0-2.1); ALBUMIN 4.8 g/dL (3.5-5.0); ALT/SGPT 339 U/L (21-72); AST/SGOT 464 U/L (17-59); BLOOD UREA NITROGEN 17 mg/dL (9-20); CALCIUM 10.1 mg/dl (8.6-10.4); GFR AFRICAN-AMERICAN > 60; GFR NON-AFRICAN AMERICAN > 60
--- NOTE | 2018-04-16 07:54 | CP.PCM.PN ---
<Tim Richards S - Last Filed: 04/16/18 16:24> Subjective - Subjective Subjective: PGY1 Resident Note for Dr. Poe Patient seen and examined bedside. Pt states that he was unable to sleep well and required and extra dose of Ativan to get to sleep. No other acute events reported overnight as per nursing. This morning the patient feels better and notes reduced tremors. He is requesting trazodone for sleep. No fevers, chills, nausea, vomiting, chest pain, SOB, abdominal pain, diarrhea, or constipation. Objective - Vital Signs/Intake and Output Vital Signs (last 24 hours): Temp Pulse Resp BP Pulse Ox 97.6 F 103 H 20 122/84 99 04/16/18 07:20 04/16/18 07:52 04/16/18 07:20 04/16/18 07:20 04/16/18 07:20 Intake and Output: 04/16/18 04/16/18 06:59 18:59 Intake Total 300 Output Total 500 Balance -200 - Medications Medications: Current Medications Dextrose (Dextrose 50% Inj) 0 ml IV STAT PRN; Protocol PRN Reason: Hypoglycemia Protocol Dextrose (Glutose 15) 0 gm PO ONCE PRN; Protocol PRN Reason: Hypoglycemia Protocol Docusate Sodium (Colace) 100 mg PO BID [facility] Escitalopram Oxalate (Lexapro) 10 mg PO DAILY [facility] Last Admin: 04/15/18 10:25 Dose: 10 mg Fluticasone Propionate (Flonase) 1 spr MESSI Q12 [facility] Last Admin: 04/16/18 09:27 Dose: 1 spr Folic Acid (Folic Acid) 1 mg PO DAILY [facility] Last Admin: 04/16/18 09:22 Dose: 1 mg Gabapentin (Neurontin) 300 mg PO BID [facility] Last Admin: 04/16/18 09:22 Dose: 300 mg Glucagon (Glucagen Diagnostic Kit) 0 mg IM STAT PRN; Protocol PRN Reason: Hypoglycemia Protocol Dextrose (Dextrose 5% In Water 1000 Ml) 1,000 mls @ 0 mls/hr IV .Q0M PRN; Protocol; Per Protocol PRN Reason: Hypoglycemia Protocol Multivitamins (Hexavitamin) 1 tab PO DAILY [facility] Last Admin: 04/16/18 09:22 Dose: 1 tab Pantoprazole Sodium (Protonix Ec Tab) 40 mg PO DAILY [facility] Last Admin: 04/16/18 12:25 Dose: 40 mg Risperidone (Risperdal Tab) 2 mg PO BID [facility] Last Admin: 04/15/18 10:21 Dose: 2 mg Thiamine HCl (Vitamin B1 Tab) 100 mg PO DAILY [facility] Last Admin: 04/16/18 09:26 Dose: 100 mg - Labs Labs: 04/16/18 06:51 04/16/18 06:51 - Constitutional Appears: No Acute Distress - Head Exam Head Exam: ATRAUMATIC, NORMOCEPHALIC - Eye Exam Eye Exam: EOMI, Normal appearance - ENT Exam ENT Exam: Mucous Membranes Moist - Respiratory Exam Respiratory Exam: Clear to Ausculation Bilateral, NORMAL BREATHING PATTERN. absent: Rales, Rhonchi, Wheezes - Cardiovascular Exam Cardiovascular Exam: REGULAR RHYTHM, +S1, +S2 - GI/Abdominal Exam GI & Abdominal Exam: Soft, Normal Bowel Sounds. absent: Guarding, Tenderness - Extremities Exam Extremities Exam: Normal Inspection. absent: Calf Tenderness, Pedal Edema, Tenderness - Neurological Exam Neurological Exam: Alert, Awake, Oriented x3 - Psychiatric Exam Psychiatric exam: Normal Mood - Skin Skin Exam: Dry, Warm Assessment and Plan - Assessment and Plan (Free Text) Plan: Alcohol Abuse Disorder with active Withdrawal Symptoms Psych consult placed to Dr. Jv walker appreciated Ativan detox As needed medications Gabapentin for augmentation if needed All risks, benefits and alternatives of medications, including no medications , discussed and the patient understood and agreed. Supportive therapy and psychoeducation [place] for abstinence Encourage MAT (antabuse, naltrexone), rehab or IOP Attend self-help groups as well [facility] for CBT and support Cleared for d/c when detox is finished ideally Alcohol level on admission 43 UDS negative, lipase WNL EKG- no sign of QTc prolongation, will continue to monitor Transaminitis worsening- as detailed below; f/u labs; f/u u/s abdomen Echo 10/2017 was WNL; no abnormalities; please refer to full report Tele discontinued 04/16/18- no acute events during monitoring Ativan taper discontinued due to worsening transaminitis (4 days of taper completed; discontinued 04/16/18) Pt was tachycardic likely due to withdrawal- no longer tachy- will continue to monitor Clonidine 0.1mg x1 given for tachycardia- repeat prn MV 1T PO daily thiamine 100mg PO daily Folic acid 1mg PO daily Seizure precautions, Aspiration Precautions, CIWA Protocol Transaminitis worsening- AST/ALT 342/211 (04/15/18) -> 464/339 (04/16/18) GI consult placed to Dr. Raza walker appreciated Hepatitis panel negative from previous admission 01/2018 F/U repeat hepatitis panel F/u GGT Abdominal US 04/14/18- no evidence of cirrhosis F/U repeat abdominal ultrasound (limited) Likely secondary to alcohol abuse Will continue to monitor Follow up AM labs Avoid hepatoxic agents Thrombocytopenia Likely secondary to alcohol abuse disorder continue to monitor platelets 55-> 46 ->38->58 S/P Fall- History of frequent falls Head CT 04/12/18 - negative for any intracranial hemorrhage Depression Psych consult placed to Dr. Jv walker appreciated Lexapro recommended Lexapro has been held in setting of transaminitis Elevated Blood Glucose Follow up hemoglobin A1C Continue to monitor Paranoid Schizophrenia Psych consult placed to Dr. Jv walker appreciated Escitalopram [Lexapro] 10 mg PO DAILY (HELD IN SETTING OF TRANSAMINITIS) Gabapentin 300 mg PO BID RisperiDONE 2 mg PO BID EKG- no sign of QTc prolongation, will continue to monitor Seasonal Allergies Fluticosone 1spray intranasal q12hrs Prophylactic Measures Protonix 40 mg PO daily Colace 100mg PO BID SCDs, chemical VTE c/i due to thrombocytopenia PT/OT - recommends gait training Case management for discharge planning as patient is homeless- list provided for shelters and alcoholics anonymous groups Case discussed with Dr. Lui He D.O. <Lauren Poe V - Last Filed: 04/16/18 18:04> Objective - Vital Signs/Intake and Output Vital Signs (last 24 hours): Temp Pulse Resp BP Pulse Ox 97.6 F 105 H 20 126/84 98 04/16/18 16:00 04/16/18 16:00 04/16/18 16:00 04/16/18 16:00 04/16/18 16:00 Intake and Output: 04/16/18 04/16/18 06:59 18:59 Intake Total 300 Output Total 500 Balance -200 - Medications Medications: Current Medications Dextrose (Dextrose 50% Inj) 0 ml IV STAT PRN; Protocol PRN Reason: Hypoglycemia Protocol Dextrose (Glutose 15) 0 gm PO ONCE PRN; Protocol PRN Reason: Hypoglycemia Protocol Docusate Sodium (Colace) 100 mg PO BID [facility] Escitalopram Oxalate (Lexapro) 10 mg PO DAILY [facility] Last Admin: 04/15/18 10:25 Dose: 10 mg Fluticasone Propionate (Flonase) 1 spr MESIS Q12 [facility] Last Admin: 04/16/18 09:27 Dose: 1 spr Folic Acid (Folic Acid) 1 mg PO DAILY [facility] Last Admin: 04/16/18 09:22 Dose: 1 mg Gabapentin (Neurontin) 300 mg PO BID [facility] Last Admin: 04/16/18 09:22 Dose: 300 mg Glucagon (Glucagen Diagnostic Kit) 0 mg IM STAT PRN; Protocol PRN Reason: Hypoglycemia Protocol Dextrose (Dextrose 5% In Water 1000 Ml) 1,000 mls @ 0 mls/hr IV .Q0M PRN; Protocol; Per Protocol PRN Reason: Hypoglycemia Protocol Multivitamins (Hexavitamin) 1 tab PO DAILY [facility] Last Admin: 04/16/18 09:22 Dose: 1 tab Pantoprazole Sodium (Protonix Ec Tab) 40 mg PO DAILY [facility] Last Admin: 04/16/18 12:25 Dose: 40 mg Risperidone (Risperdal Tab) 2 mg PO BID [facility] Last Admin: 04/15/18 10:21 Dose: 2 mg Thiamine HCl (Vitamin B1 Tab) 100 mg PO DAILY [facility] Last Admin: 04/16/18 09:26 Dose: 100 mg - Labs Labs: 04/16/18 06:51 04/16/18 06:51 Attending/Attestation - Attestation I have personally seen and examined this patient.: Yes I have fully participated in the care of the patient.: Yes I have reviewed all pertinent clinical information, including history, physical exam and plan: Yes Notes (Text): Patient seen, examined, case discussed with medical/surgery registered nurse. Patient seen this morning. Patient denies acute complaints. Patient does not have any tremors on exam. Patient in on telemetry is sinus. Patient is on day 4 of taper technically. We have discontinued Ativan, trazodone, Lexapro is on hold and Zofran. Patient's liver numbers continue to rise. Unclear if it's related to the benzodiazepines were not needed for withdrawal. We'll order for hepatitis panel, and limited abdominal ultrasound to look at the liver and GI consult for further recommendations. Telemetry discontinued. Parasite patient is stable for discharge when ideally finish his taper. 1) Alcohol Intoxication Concern for Withdrawal, Monitor for DTs Thrombocytopenia Anemia of Chronic Disease 04/16: improved. No tremors. calm. * D/C ativan secondary to rise in LFTs. * D/c Telemetry since patient is past window of DT * Per psych stable for d/c when completes detox ideally 04/15: patient is improved compared to yesterday. patient has minimal tremors. Very calm. Patient has 1:1 placed for behavioral since he urinated on the nagel. Patient order for Clonidine 0.1mg PO X1. * Alcohol level on admission 43 * UDS negative, lipase WNL * EKG- no sign of QTc prolongation, will continue to monitor * Seizure, Aspiration Precautions, CIWA Protocol * Echo 10/2017 was WNL; no abnormalities; please refer to full report * MV1 tab PO daily, thiamine 100mg PO daily, folic 1mg PO daily, Ativan PRN 2) S/P Fall History of frequent falls * Head CT - negative for any intracranial hemorrhage 3) Transaminitis * continue to rise * Likely 2/2 to alcohol use * Hepatitis panel negative from previous admission 01/2018 * we'll reorder hepatitis panel, limited abdominal ultrasound, and GI consult * discontinued benzo and held medications that require liver adjustment 4) Paranoid Schizophrenia * Held Escitalopram [Lexapro] 10 mg PO DAILY, Gabapentin 300 mg PO BID, held risperiDONE 2 mg PO BID * EKG- no sign of QTc prolongation, will continue to monitor 5) Prophylactic Measures * Protonix 40 mg PO daily * SCDs, VTE c/i due to thrombocytopenia * PT - recommends gait training * OT - no OT needed * Case management for discharge planning as patient is homeless * 1:1 behavioral disturbance secondary to urinating on the nagel on 04/14/18 Disposition: Liver enzymes continue to rise. Further workup. <Hanny He P - Last Filed: 04/16/18 20:46> Subjective - Date & Time of Evaluation Date of Evaluation: 04/16/18 Time of Evaluation: 07:54 Objective - Vital Signs/Intake and Output Vital Signs (last 24 hours): Temp Pulse Resp BP Pulse Ox 98.6 F 75 20 118/85 98 04/16/18 04:41 04/16/18 04:41 04/16/18 04:41 04/16/18 04:41 04/16/18 04:41 Intake and Output: 04/16/18 04/16/18 06:59 18:59 Intake Total 300 Output Total 500 Balance -200 - Medications Medications: Current Medications Dextrose (Dextrose 50% Inj) 0 ml IV STAT PRN; Protocol PRN Reason: Hypoglycemia Protocol Dextrose (Glutose 15) 0 gm PO ONCE PRN; Protocol PRN Reason: Hypoglycemia Protocol Escitalopram Oxalate (Lexapro) 10 mg PO DAILY [facility] Last Admin: 04/15/18 10:25 Dose: 10 mg Fluticasone Propionate (Flonase) 1 spr MESSI Q12 [facility] Last Admin: 04/15/18 21:06 Dose: 1 spr Folic Acid (Folic Acid) 1 mg PO DAILY [facility] Last Admin: 04/15/18 10:21 Dose: 1 mg Gabapentin (Neurontin) 300 mg PO BID [facility] Last Admin: 04/15/18 18:12 Dose: 300 mg Glucagon (Glucagen Diagnostic Kit) 0 mg IM STAT PRN; Protocol PRN Reason: Hypoglycemia Protocol Hydralazine HCl (Apresoline) 10 mg IVP Q6H PRN PRN Reason: Systolic Blood Pressure Dextrose (Dextrose 5% In Water 1000 Ml) 1,000 mls @ 0 mls/hr IV .Q0M PRN; Protocol; Per Protocol PRN Reason: Hypoglycemia Protocol Lorazepam (Ativan) 1 mg IVP Q4H PRN PRN Reason: Symptoms of alcohol withdrawl Last Admin: 04/16/18 01:29 Dose: 1 mg Lorazepam (Ativan) 1 mg PO Q12H [facility] PRN Reason: Taper Stop: 04/18/18 03:59 Last Admin: 04/16/18 05:00 Dose: 1 mg Multivitamins (Hexavitamin) 1 tab PO DAILY [facility] Last Admin: 04/15/18 10:21 Dose: 1 tab Ondansetron HCl (Zofran Inj) 4 mg IVP Q6 PRN PRN Reason: Nausea/Vomiting Pantoprazole Sodium (Protonix Ec Tab) 40 mg PO DAILY [facility] Last Admin: 04/15/18 10:30 Dose: 40 mg Risperidone (Risperdal Tab) 2 mg PO BID [facility] Last Admin: 04/15/18 10:21 Dose: 2 mg Thiamine HCl (Vitamin B1 Tab) 100 mg PO DAILY [facility] Last Admin: 04/15/18 10:21 Dose: 100 mg - Labs Labs: 04/16/18 06:51 04/16/18 06:51
[2018-04-16] MEDS: Multiple Vitamins Tab PO SCH (09:22)
[2018-04-16] MEDS: Fluticasone Nasal 50 mcg/Spray NAS SCH ×2 (09:27→21:10)
--- NOTE | 2018-04-16 12:21 | PCM.PYCHPN ---
Psychiatric Progress Note - Psychiatric Progress Note Patient seen today, length of contact: 16 min Patient Chief Complaint: "I am fine, I need to go to work" Problems Identified/Issues Discussed: Pt is seen, chart reviewed He is much better today, AOX3 TP is slow but affect is brighter and no confusion, no tremors, sweating Support given No SI, HI Cleared for d/c when detox is finished ideally Medication Change: Yes (detox changes daily) Medical Record Reviewed: Yes Mental Status Examination - Cognitive Function Orientation: Person, Place, Situation, Time Memory: Impaired Attention: Poor Concentration: Poor Association: Loose Fund of Knowledge: Poor - Mood Mood: Anxious - Affect Affect: Constricted - Speech Speech: Slurred - Formal Thought Process Formal Thought Process: No Impairment - Suicidal Ideation Suicidal Ideation: No - Homicidal Ideation Homicidal Ideation: No Goal/Treatment Plan - Goal/Treatment Plan Need for Continued Stay: Discharge may exacerbated symptoms, Severe functional impairment Progress Toward Problem(s) and Goals/Treatment Plan: Ativan detox As needed medications Gabapentin for augmentation if needed All risks, benefits and alternatives of medications, including no medications, discussed and the patient understood and agreed. Supportive therapy and psychoeducation [place] for abstinence Encourage MAT (antabuse, naltrexone), rehab or IOP Attend self-help groups as well Risperdal for psychosis Lexapro for depression CBT and support
[2018-04-16] MEDS: Pantoprazole 40 mg EC Tab PO SCH (12:25)
[2018-04-16 17:24] LABS: HEPATITIS B SURFACE AG Negative (NEGATIVE)
[2018-04-16 17:29] LABS: HEPATITIS B CORE AB NEGATIVE (NEGATIVE)
[2018-04-16 17:38] LABS: HEPATITIS A IGM NEGATIVE (NEGATIVE)
[2018-04-16 17:41] LABS: HEPATITIS C ANTIBODY NEGATIVE (NEGATIVE)
--- NOTE | 2018-04-16 17:59 | US ---
Date of service: 04/16/2018 HISTORY: elevated liver enzymes COMPARISON: None. TECHNIQUE: Sonographic evaluation of the right upper quadrant of the abdomen. FINDINGS: LIVER: Measures 14.3 cm in length. Normal echogenicity of the liver parenchyma. No mass. No intrahepatic bile duct dilatation. GALLBLADDER: Unremarkable. No gallstones. COMMON BILE DUCT: Measures 4.0 mm. No stones. No dilatation. PANCREAS: The tail of the pancreas is obscured by overlying bowel gas with remainder unremarkable. RIGHT KIDNEY: Measures 10.2 cm in length. Good corticomedullary differentiation. There is a small simple cyst at the lower pole right kidney measuring 0.7 x 0.5 x 0.7 cm. No calculus, mass, or hydronephrosis. AORTA: No aneurysmal dilatation. IVC: Unremarkable. OTHER FINDINGS: None . IMPRESSION: 1. Tiny cyst lower pole right kidney with the right kidney otherwise unremarkable. 2. Contracted gallbladder with common bile duct unremarkable. Partial imaging of the pancreas.
--- NOTE | 2018-04-17 07:31 | CP.PCM.PN ---
<Hanny He P - Last Filed: 04/17/18 23:32> Subjective - Date & Time of Evaluation Date of Evaluation: 04/17/18 Time of Evaluation: 07:27 - Subjective Subjective: PGY-[address] Poe. Patient seen and evaluated at bedside. States he had difficulty sleeping last night and asking for Trazodone. Denies tremors fever, chills, nausea, vomiting , diarrhea, abdominal pain, chest pain, and shortness of breath. Objective - Vital Signs/Intake and Output Vital Signs (last 24 hours): Temp Pulse Resp BP Pulse Ox 98.3 F 83 20 134/89 100 04/16/18 22:10 04/16/18 22:10 04/16/18 22:10 04/16/18 22:10 04/16/18 22:10 Intake and Output: 04/17/18 04/17/18 06:59 18:59 Intake Total 350 Balance 350 - Medications Medications: Current Medications Dextrose (Dextrose 50% Inj) 0 ml IV STAT PRN; Protocol PRN Reason: Hypoglycemia Protocol Dextrose (Glutose 15) 0 gm PO ONCE PRN; Protocol PRN Reason: Hypoglycemia Protocol Docusate Sodium (Colace) 100 mg PO BID [facility] Last Admin: 04/16/18 18:19 Dose: 100 mg Escitalopram Oxalate (Lexapro) 10 mg PO DAILY [facility] Last Admin: 04/15/18 10:25 Dose: 10 mg Fluticasone Propionate (Flonase) 1 spr MESSI Q12 [facility] Last Admin: 04/16/18 21:10 Dose: 1 spr Folic Acid (Folic Acid) 1 mg PO DAILY [facility] Last Admin: 04/16/18 09:22 Dose: 1 mg Gabapentin (Neurontin) 300 mg PO BID [facility] Last Admin: 04/16/18 18:19 Dose: 300 mg Glucagon (Glucagen Diagnostic Kit) 0 mg IM STAT PRN; Protocol PRN Reason: Hypoglycemia Protocol Dextrose (Dextrose 5% In Water 1000 Ml) 1,000 mls @ 0 mls/hr IV .Q0M PRN; Protocol; Per Protocol PRN Reason: Hypoglycemia Protocol Multivitamins (Hexavitamin) 1 tab PO DAILY [facility] Last Admin: 04/16/18 09:22 Dose: 1 tab Pantoprazole Sodium (Protonix Ec Tab) 40 mg PO DAILY [facility] Last Admin: 04/16/18 12:25 Dose: 40 mg Risperidone (Risperdal Tab) 2 mg PO BID [facility] Last Admin: 04/15/18 10:21 Dose: 2 mg Thiamine HCl (Vitamin B1 Tab) 100 mg PO DAILY [facility] Last Admin: 04/16/18 09:26 Dose: 100 mg - Labs Labs: 04/16/18 06:51 04/16/18 06:51 - Constitutional Appears: No Acute Distress - Head Exam Head Exam: ATRAUMATIC, NORMOCEPHALIC - Eye Exam Eye Exam: EOMI, Normal appearance - ENT Exam ENT Exam: Mucous Membranes Moist - Neck Exam Neck Exam: Normal Inspection - Respiratory Exam Respiratory Exam: Clear to Ausculation Bilateral, Respiratory Distress, NORMAL BREATHING PATTERN. absent: Rales, Rhonchi, Wheezes - Cardiovascular Exam Cardiovascular Exam: REGULAR RHYTHM. absent: +S1, +S2 - GI/Abdominal Exam GI & Abdominal Exam: Soft, Normal Bowel Sounds. absent: Distended, Firm, Guarding, Tenderness - Extremities Exam Extremities Exam: Full ROM. absent: Calf Tenderness, Pedal Edema - Neurological Exam Neurological Exam: Alert, Awake, Oriented x3 - Psychiatric Exam Psychiatric exam: Normal Mood - Skin Skin Exam: Dry, Normal Color, Warm Assessment and Plan - Assessment and Plan (Free Text) Plan: Alcohol Abuse Disorder with active Withdrawal Symptoms Psych consult placed to Dr. Jv walker appreciated Ativan detox As needed medications Gabapentin for augmentation if needed All risks, benefits and alternatives of medications, including no medications , discussed and the patient understood and agreed. Supportive therapy and psychoeducation DE for abstinence Encourage MAT (antabuse, naltrexone), rehab or IOP Attend self-help groups as well [facility] for CBT and support Cleared for d/c when detox is finished ideally Alcohol level on admission 43 UDS negative, lipase WNL EKG- no sign of QTc prolongation, will continue to monitor Transaminitis worsening- as detailed below; f/u labs; f/u u/s abdomen Echo 10/2017 was WNL; no abnormalities; please refer to full report Tele discontinued 04/16/18- no acute events during monitoring Ativan taper discontinued due to worsening transaminitis (4 days of taper completed; discontinued 04/16/18) Pt was tachycardic likely due to withdrawal- no longer tachy- will continue to monitor Clonidine 0.1mg x1 given for tachycardia- repeat prn MV 1T PO daily thiamine 100mg PO daily Folic acid 1mg PO daily Seizure precautions, Aspiration Precautions, CIWA Protocol Transaminitis worsening- AST/ALT 342/211 (04/15/18) -> 464/339 (04/16/18) -> 278/311 (04/17/18) GI consult placed to Dr. Raza walker appreciated Hepatitis panel negative from previous admission 01/2018 repeat hepatitis panel negative [id number] Abdominal US 04/14/18- no evidence of cirrhosis Abdominal US LTD 04/17/18- unremarkable Likely secondary to alcohol abuse Will continue to monitor Avoid hepatoxic agents Thrombocytopenia Likely secondary to alcohol abuse disorder continue to monitor platelets 55-> 46 ->38->58->69 S/P Fall- History of frequent falls Head CT 04/12/18 - negative for any intracranial hemorrhage Depression Psych consult placed to Dr. Jv walker appreciated Lexapro recommended Lexapro has been held in setting of transaminitis Elevated Blood Glucose Follow up hemoglobin A1C Continue to monitor Paranoid Schizophrenia Psych consult placed to Dr. Jv walker appreciated Escitalopram [Lexapro] 10 mg PO DAILY (HELD IN SETTING OF TRANSAMINITIS) Gabapentin 300 mg PO BID -> changed to 150mg PO BID as per Dr. Parada RisperiDONE 2 mg PO BID EKG- no sign of QTc prolongation, will continue to monitor Seasonal Allergies Fluticosone 1spray intranasal q12hrs Prophylactic Measures Protonix 40 mg PO daily Colace 100mg PO BID SCDs, chemical VTE c/i due to thrombocytopenia PT/OT - recommends gait training Case management for discharge planning as patient is homeless- list provided for shelters and alcoholics anonymous groups LFTs downtrending. Patient for dc tomrrow. <Lauren Poe V - Last Filed: 04/18/18 01:40> Objective - Vital Signs/Intake and Output Vital Signs (last 24 hours): Temp Pulse Resp BP Pulse Ox 97.8 F 72 20 148/57 L 99 04/17/18 23:05 04/17/18 23:05 04/17/18 23:05 04/17/18 23:05 04/17/18 23:05 Intake and Output: 04/17/18 04/18/18 18:59 06:59 Intake Total 810 Balance 810 - Medications Medications: Current Medications Dextrose (Dextrose 50% Inj) 0 ml IV STAT PRN; Protocol PRN Reason: Hypoglycemia Protocol Dextrose (Glutose 15) 0 gm PO ONCE PRN; Protocol PRN Reason: Hypoglycemia Protocol Docusate Sodium (Colace) 100 mg PO BID [facility] Last Admin: 04/17/18 17:11 Dose: 100 mg Escitalopram Oxalate (Lexapro) 10 mg PO DAILY [facility] Last Admin: 04/15/18 10:25 Dose: 10 mg Fluticasone Propionate (Flonase) 1 spr MESSI Q12 [facility] Last Admin: 04/17/18 21:52 Dose: 1 spr Folic Acid (Folic Acid) 1 mg PO DAILY [facility] Last Admin: 04/17/18 09:59 Dose: 1 mg Gabapentin (Neurontin) 100 mg PO BID [facility] Last Admin: 04/17/18 17:11 Dose: 100 mg Glucagon (Glucagen Diagnostic Kit) 0 mg IM STAT PRN; Protocol PRN Reason: Hypoglycemia Protocol Dextrose (Dextrose 5% In Water 1000 Ml) 1,000 mls @ 0 mls/hr IV .Q0M PRN; Protocol; Per Protocol PRN Reason: Hypoglycemia Protocol Multivitamins (Hexavitamin) 1 tab PO DAILY [facility] Last Admin: 04/17/18 09:59 Dose: 1 tab Pantoprazole Sodium (Protonix Ec Tab) 40 mg PO DAILY [facility] Last Admin: 04/17/18 09:59 Dose: 40 mg Risperidone (Risperdal Tab) 2 mg PO BID [facility] Last Admin: 04/15/18 10:21 Dose: 2 mg Thiamine HCl (Vitamin B1 Tab) 100 mg PO DAILY [facility] Last Admin: 04/17/18 09:59 Dose: 100 mg - Labs Labs: 04/17/18 08:42 04/17/18 08:42 Attending/Attestation - Attestation I have personally seen and examined this patient.: Yes I have fully participated in the care of the patient.: Yes I have reviewed all pertinent clinical information, including history, physical exam and plan: Yes Notes (Text): This is late computer entry for 04/17/18. Patient seen, examined, case discussed with medical service representative. Patient seen this morning. Patient denies acute complaints. Patient does not have any tremors on exam. Patient is off telemetry. Patient is off Ativan. Liver enzymes are improving. Patient seen and evaluated by GI. Patient has completed Abdominal US limited. Planning for possible discharge tomorrow. Patient is homeless and per patient homeless half-way are not opened on Sundays for placement 1) Alcohol Intoxication Concern for Withdrawal, Monitor for DTs Thrombocytopenia Anemia of Chronic Disease 04/17: Downtrending LFTs, +GGT, Abdominal US: unremarkable. Dr. Parada on board 04/16: improved. No tremors. calm. * D/C ativan secondary to rise in LFTs. * D/c Telemetry since patient is past window of DT * Per psych stable for d/c when completes detox ideally 04/15: patient is improved compared to yesterday. patient has minimal tremors. Very calm. Patient has 1:1 placed for behavioral since he urinated on the nagel. Patient order for Clonidine 0.1mg PO X1. * Alcohol level on admission 43 * UDS negative, lipase WNL * EKG- no sign of QTc prolongation, will continue to monitor * Seizure, Aspiration Precautions, CIWA Protocol * Echo 10/2017 was WNL; no abnormalities; please refer to full report * MV1 tab PO daily, thiamine 100mg PO daily, folic 1mg PO daily, Ativan PRN 2) S/P Fall History of frequent falls * Head CT - negative for any intracranial hemorrhage 3) Transaminitis * GI on board * downtrending * Likely 2/2 to alcohol use * Hepatitis panel negative from previous admission 01/2018 * Hep panel negative * GGT+ * discontinued benzo and held medications that require liver adjustment 4) Paranoid Schizophrenia * Held Escitalopram [Lexapro] 10 mg PO DAILY, Gabapentin 300 mg PO BID, held risperiDONE 2 mg PO BID * EKG- no sign of QTc prolongation, will continue to monitor 5) Prophylactic Measures * Protonix 40 mg PO daily * SCDs, VTE c/i due to thrombocytopenia * PT - recommends gait training * OT - no OT needed * Case management for discharge planning as patient is homeless * 1:1 behavioral disturbance secondary to urinating on the nagel on 04/14/18 Disposition: Liver enzymes downtrending. Possible d/c to homeless half-way tomorrow.
[2018-04-17 08:59] LABS: BASO % 0.7 % (0.0-2.0); EOS # 0.2 K/uL (0.0-0.7); EOS % 3.3 % (0.0-4.0); HEMOGLOBIN 13.2 g/dL (12.0-18.0); LYMPH # 2.6 K/uL (1.0-4.3); LYMPH % 46.9 % (20.0-40.0); MEAN CORPUSCULAR HEMOGLOBIN 31.1 pg (27.0-31.0); MEAN CORPUSCULAR HGB CONC 34.6 g/dL (33.0-37.0); MEAN PLATELET VOLUME 8.5 fL (7.2-11.7); MONO # 0.4 K/uL (0.0-0.8); MONO % 7.1 % (0.0-10.0); NEUT # 2.3 K/uL (1.8-7.0); NRBC % 0.1 % (0.0-2.0); RBC 4.24 Mil/uL (4.40-5.90); RED CELL DISTRIBUTION WIDTH 16.8 % (11.5-14.5); WHITE BLOOD COUNT 5.6 K/uL (4.8-10.8)
[2018-04-17 09:15] LABS: ALB/GLOB RATIO 1.3 (1.0-2.1); ALBUMIN 4.6 g/dL (3.5-5.0); ALT/SGPT 311 U/L (21-72); AST/SGOT 278 U/L (17-59); BLOOD UREA NITROGEN 16 mg/dL (9-20); CALCIUM 9.6 mg/dl (8.6-10.4); GFR AFRICAN-AMERICAN > 60; GFR NON-AFRICAN AMERICAN > 60
[2018-04-17] MEDS: Multiple Vitamins Tab PO SCH (09:59)
[2018-04-17] MEDS: Fluticasone Nasal 50 mcg/Spray NAS SCH ×2 (09:59→21:52)
[2018-04-17] MEDS: Pantoprazole 40 mg EC Tab PO SCH (09:59)
[2018-04-18 04:29] VITALS: O2SAT 98
[2018-04-18 06:57] LABS: BASO % 0.7 % (0.0-2.0); EOS # 0.2 K/uL (0.0-0.7); EOS % 3.1 % (0.0-4.0); HEMOGLOBIN 12.7 g/dL (12.0-18.0); LYMPH # 2.5 K/uL (1.0-4.3); LYMPH % 48.1 % (20.0-40.0); MEAN CORPUSCULAR HEMOGLOBIN 30.6 pg (27.0-31.0); MEAN PLATELET VOLUME 8.2 fL (7.2-11.7); MONO # 0.5 K/uL (0.0-0.8); MONO % 10.3 % (0.0-10.0); NEUT % 37.8 % (50.0-75.0); NRBC % 0.2 % (0.0-2.0); RBC 4.17 Mil/uL (4.40-5.90); RED CELL DISTRIBUTION WIDTH 16.4 % (11.5-14.5); WHITE BLOOD COUNT 5.2 K/uL (4.8-10.8)
--- NOTE | 2018-04-18 07:16 | CP.PCM.PN ---
Subjective - Date & Time of Evaluation Date of Evaluation: 04/18/18 Time of Evaluation: 07:16 Objective - Vital Signs/Intake and Output Vital Signs (last 24 hours): Temp Pulse Resp BP Pulse Ox 98.3 F 60 20 123/79 98 04/18/18 04:05 04/18/18 04:05 04/18/18 04:05 04/18/18 04:05 04/18/18 04:05 Intake and Output: 04/18/18 04/18/18 06:59 18:59 Intake Total 50 Balance 50 - Medications Medications: Current Medications Dextrose (Dextrose 50% Inj) 0 ml IV STAT PRN; Protocol PRN Reason: Hypoglycemia Protocol Dextrose (Glutose 15) 0 gm PO ONCE PRN; Protocol PRN Reason: Hypoglycemia Protocol Docusate Sodium (Colace) 100 mg PO BID [facility] Last Admin: 04/17/18 17:11 Dose: 100 mg Escitalopram Oxalate (Lexapro) 10 mg PO DAILY [facility] Last Admin: 04/15/18 10:25 Dose: 10 mg Fluticasone Propionate (Flonase) 1 spr MESSI Q12 [facility] Last Admin: 04/17/18 21:52 Dose: 1 spr Folic Acid (Folic Acid) 1 mg PO DAILY [facility] Last Admin: 04/17/18 09:59 Dose: 1 mg Gabapentin (Neurontin) 100 mg PO BID [facility] Last Admin: 04/17/18 17:11 Dose: 100 mg Glucagon (Glucagen Diagnostic Kit) 0 mg IM STAT PRN; Protocol PRN Reason: Hypoglycemia Protocol Dextrose (Dextrose 5% In Water 1000 Ml) 1,000 mls @ 0 mls/hr IV .Q0M PRN; Protocol; Per Protocol PRN Reason: Hypoglycemia Protocol Multivitamins (Hexavitamin) 1 tab PO DAILY [facility] Last Admin: 04/17/18 09:59 Dose: 1 tab Pantoprazole Sodium (Protonix Ec Tab) 40 mg PO DAILY [facility] Last Admin: 04/17/18 09:59 Dose: 40 mg Risperidone (Risperdal Tab) 2 mg PO BID [facility] Last Admin: 04/15/18 10:21 Dose: 2 mg Thiamine HCl (Vitamin B1 Tab) 100 mg PO DAILY [facility] Last Admin: 04/17/18 09:59 Dose: 100 mg - Labs Labs: 04/18/18 06:39 04/17/18 08:42
[2018-04-18 07:56] LABS: ALB/GLOB RATIO 1.3 (1.0-2.1); ALBUMIN 4.2 g/dL (3.5-5.0); ALT/SGPT 289 U/L (21-72); AST/SGOT 216 U/L (17-59); BLOOD UREA NITROGEN 17 mg/dL (9-20); CALCIUM 9.3 mg/dl (8.6-10.4); GFR AFRICAN-AMERICAN > 60; GFR NON-AFRICAN AMERICAN > 60
[2018-04-18 08:12] VITALS: BP 118/74; PULSE 67; TEMP 98.1
--- NOTE | 2018-04-18 08:21 | CP.PCM.CON ---
History of Present Illness - History of Present Illness History of Present Illness: GI Fellow PGY4, Consult note. Bassam Leavitt is a pleasant 53yo male with history of paranoia, alcoholism who presented with alcohol intoxication and we were consulted for abnormal LFTs. Patient admits he has a history of liver disease for the last few years but does not follow up with a stone sandblaster. He does go to the [facility] and has another appointment on the . He admits history of EGD/colonoscopy 1 -2yrs ago in [place]. He denies polyps, diverticulosis, abnormal stomach findings. Patient takes trazodone, resperidone, Lexipro and gabapentin at home. He denies fever, n/v/d, abdominal pain, changes in BMs. He admits brown stool. PMHx - See above PSHx - Hernia repair FMHx - Denies colon, stomach, pancreatic, liver cancer. His brother had liver disease but he does not know why type. SocHx - Alcoholism. Denies smoking. Currently homeless. He desires to stay off alcohol, but has no support in his life. 12pt ROS completed and negative except for above. Past Patient History - Infectious Disease Hx of Infectious Diseases: None - Past Medical History & Family History Past Medical History?: Yes - Past Social History Smoking Status: Former Smoker - CARDIAC Hx Hypertension: Yes - PULMONARY Hx Respiratory Disorders: No - NEUROLOGICAL Hx Seizures: Yes - HEENT Hx HEENT Problems: No - RENAL Hx Chronic Kidney Disease: No - ENDOCRINE/METABOLIC Hx Endocrine Disorders: No - HEMATOLOGICAL/ONCOLOGICAL Hx Blood Disorders: No - INTEGUMENTARY Hx Dermatological Problems: No - MUSCULOSKELETAL/RHEUMATOLOGICAL Hx Fractures: Yes (left wrist 4 days ago cast intact) - GASTROINTESTINAL Hx Gastrointestinal Disorders: No - GENITOURINARY/GYNECOLOGICAL Hx Genitourinary Disorders: No - PSYCHIATRIC Hx Bipolar Disorder: Yes Hx Paranoia: Yes Hx Substance Use: No - SURGICAL HISTORY Hx Surgeries: Yes Hx Herniorrhaphy: Yes (left) - ANESTHESIA Hx Anesthesia: Yes Hx Anesthesia Reactions: No Hx Malignant Hyperthermia: No Meds Allergies/Adverse Reactions: Allergies Allergy/AdvReac Type Severity Reaction Status Date / Time No Known Allergies Allergy Verified 04/12/18 15:13 - Medications Medications: Current Medications Dextrose (Dextrose 50% Inj) 0 ml IV STAT PRN; Protocol PRN Reason: Hypoglycemia Protocol Dextrose (Glutose 15) 0 gm PO ONCE PRN; Protocol PRN Reason: Hypoglycemia Protocol Docusate Sodium (Colace) 100 mg PO BID [facility] Last Admin: 04/17/18 17:11 Dose: 100 mg Escitalopram Oxalate (Lexapro) 10 mg PO DAILY [facility] Last Admin: 04/15/18 10:25 Dose: 10 mg Fluticasone Propionate (Flonase) 1 spr MESSI Q12 [facility] Last Admin: 04/17/18 21:52 Dose: 1 spr Folic Acid (Folic Acid) 1 mg PO DAILY [facility] Last Admin: 04/17/18 09:59 Dose: 1 mg Gabapentin (Neurontin) 100 mg PO BID [facility] Last Admin: 04/17/18 17:11 Dose: 100 mg Glucagon (Glucagen Diagnostic Kit) 0 mg IM STAT PRN; Protocol PRN Reason: Hypoglycemia Protocol Dextrose (Dextrose 5% In Water 1000 Ml) 1,000 mls @ 0 mls/hr IV .Q0M PRN; Protocol; Per Protocol PRN Reason: Hypoglycemia Protocol Multivitamins (Hexavitamin) 1 tab PO DAILY [facility] Last Admin: 04/17/18 09:59 Dose: 1 tab Pantoprazole Sodium (Protonix Ec Tab) 40 mg PO DAILY [facility] Last Admin: 04/17/18 09:59 Dose: 40 mg Risperidone (Risperdal Tab) 2 mg PO BID [facility] Last Admin: 04/15/18 10:21 Dose: 2 mg Thiamine HCl (Vitamin B1 Tab) 100 mg PO DAILY [facility] Last Admin: 04/17/18 09:59 Dose: 100 mg Physical Exam - Constitutional Appears: Well, Non-toxic, No Acute Distress, Unkempt, Older Than Stated Age - Head Exam Head Exam: ATRAUMATIC, NORMAL INSPECTION, NORMOCEPHALIC - Eye Exam Eye Exam: EOMI, Normal appearance - ENT Exam ENT Exam: Mucous Membranes Moist, Normal Exam - Respiratory Exam Respiratory Exam: Clear to Auscultation Bilateral, NORMAL BREATHING PATTERN. absent: Wheezes - Cardiovascular Exam Cardiovascular Exam: REGULAR RHYTHM, +S1, +S2 - GI/Abdominal Exam GI & Abdominal Exam: Normal Bowel Sounds, Soft. absent: Distended, Organomegaly , Tenderness - Extremities Exam Extremities exam: Positive for: normal inspection - Neurological Exam Neurological exam: Alert, CN II-XII Intact, Oriented x3 - Psychiatric Exam Psychiatric exam: Flat Affect, Normal Mood - Skin Skin Exam: Dry, Intact, Normal Color Results - Vital Signs Recent Vital Signs: Last Vital Signs Temp 98.3 F 04/18/18 04:05 Pulse 60 04/18/18 04:05 Resp 20 04/18/18 04:05 BP 123/79 04/18/18 04:05 Pulse Ox 98 04/18/18 04:05 - Labs Result Diagrams: 04/18/18 06:39 04/18/18 06:39 Labs: Laboratory Results - last 24 hr 04/17/18 04/17/18 04/18/18 08:42 08:42 06:39 WBC 5.6 5.2 RBC 4.24 L 4.17 L Hgb 13.2 12.7 Hct 38.1 37.5 MCV 90.0 90.0 MCH 31.1 H 30.6 MCHC 34.6 34.0 RDW 16.8 H 16.4 H Plt Count 69 L 76 L MPV 8.5 8.2 Neut % (Auto) 42.0 L 37.8 L Lymph % (Auto) 46.9 H 48.1 H [place] % (Auto) 7.1 10.3 H Eos % (Auto) 3.3 3.1 Baso % (Auto) 0.7 0.7 Neut # (Auto) 2.3 2.0 Lymph # (Auto) 2.6 2.5 [place] # (Auto) 0.4 0.5 Eos # (Auto) 0.2 0.2 Baso # (Auto) 0.0 0.0 Sodium 141 Potassium 3.8 Chloride 101 Carbon Dioxide 26 Anion Gap 17 BUN 16 Creatinine 0.7 L Est GFR ( Amer) > 60 Est GFR (Non-Af Amer) > 60 Random Glucose 108 Calcium 9.6 Phosphorus 4.0 Magnesium 1.8 Total Bilirubin 0.6 AST 278 H D ALT 311 H Alkaline Phosphatase 97 Total Protein 8.0 Albumin 4.6 Globulin 3.4 Albumin/Globulin Ratio 1.3 04/18/18 06:39 WBC RBC Hgb Hct MCV MCH MCHC RDW Plt Count MPV Neut % (Auto) Lymph % (Auto) [place] % (Auto) Eos % (Auto) Baso % (Auto) Neut # (Auto) Lymph # (Auto) [place] # (Auto) Eos # (Auto) Baso # (Auto) Sodium 138 Potassium 3.7 Chloride 100 Carbon Dioxide 25 Anion Gap 16 BUN 17 Creatinine 0.8 Est GFR ( Amer) > 60 Est GFR (Non-Af Amer) > 60 Random Glucose 101 Calcium 9.3 Phosphorus 3.7 Magnesium 1.8 Total Bilirubin 0.4 AST 216 H D ALT 289 H Alkaline Phosphatase 91 Total Protein 7.3 Albumin 4.2 Globulin 3.1 Albumin/Globulin Ratio 1.3 Assessment & Plan - Assessment and Plan (Free Text) Assessment: 53M homeless with hx of EtOH abuse, schizophrenia/bipolar presenting with alcohol intoxication and GI services consulted for abnormal LFTs. #Elevated Liver enzymes #Alcohol dependence #Alcohol w/d #Thrombocytopenia #Schizophrenia #Bipolar Plan: -continue supportive care -Follow up at [facility] and other geriatric social work professor to treat alcohol dependence. -Abd US reviewed and normal findings -Hepatitis panel negative. -Adjust escitalopram and risperidone for decreasing liver function as clinically indicated. -Hepatocellular Liver enzymes pattern: improving. Chronically elevated. Most likely due to chemical and alcohol related abnormalities however AST/ALT ratio is off for alcohol. For completeness and young age, recommend liver work-up: INR , TSH, iron panel, Cr, AFP. -Encouraged to follow up out patient at [facility]. -No procedures planned at this time. - Date & Time Date: 04/18/18 Time: 08:54
[2018-04-18] MEDS: Pantoprazole 40 mg EC Tab PO SCH (09:57)
[2018-04-18] MEDS: Multiple Vitamins Tab PO SCH (09:57)
[2018-04-18] MEDS: Fluticasone Nasal 50 mcg/Spray NAS SCH (09:57)
--- NOTE | 2018-04-18 10:02 | CP.PCM.DIS ---
<Henry Dykes - Last Filed: 04/18/18 13:46> Provider - Provider Date of Admission: 04/14/18 11:18 Attending physician: Jesus Rodriguez MD Consults: GI: Dr. Parada Psych: Dr. Ferro Time Spent in preparation of Discharge (in minutes): 40 Hospital Course - Lab Results Lab Results: Most Recent Lab Values WBC 5.2 K/uL (4.8-10.8) 04/18/18 06:39 RBC 4.17 Mil/uL (4.40-5.90) L 04/18/18 06:39 Hgb 12.7 g/dL (12.0-18.0) 04/18/18 06:39 Hct 37.5 % (35.0-51.0) 04/18/18 06:39 MCV 90.0 fL (80.0-94.0) 04/18/18 06:39 MCH 30.6 pg (27.0-31.0) 04/18/18 06:39 MCHC 34.0 g/dL (33.0-37.0) 04/18/18 06:39 RDW 16.4 % (11.5-14.5) H 04/18/18 06:39 Plt Count 76 K/uL (130-400) L 04/18/18 06:39 MPV 8.2 fL (7.2-11.7) 04/18/18 06:39 Neut % (Auto) 37.8 % (50.0-75.0) L 04/18/18 06:39 Lymph % (Auto) 48.1 % (20.0-40.0) H 04/18/18 06:39 Tyrrell % (Auto) 10.3 % (0.0-10.0) H 04/18/18 06:39 Eos % (Auto) 3.1 % (0.0-4.0) 04/18/18 06:39 Baso % (Auto) 0.7 % (0.0-2.0) 04/18/18 06:39 Neut # (Auto) 2.0 K/uL (1.8-7.0) 04/18/18 06:39 Lymph # (Auto) 2.5 K/uL (1.0-4.3) 04/18/18 06:39 Tyrrell # (Auto) 0.5 K/uL (0.0-0.8) 04/18/18 06:39 Eos # (Auto) 0.2 K/uL (0.0-0.7) 04/18/18 06:39 Baso # (Auto) 0.0 K/uL (0.0-0.2) 04/18/18 06:39 Differential Comment 04/12/18 16:17 Sodium 138 mmol/L (132-148) 04/18/18 06:39 Potassium 3.7 mmol/L (3.6-5.2) 04/18/18 06:39 Chloride 100 mmol/L (98-107) 04/18/18 06:39 Carbon Dioxide 25 mmol/L (22-30) 04/18/18 06:39 Anion Gap 16 (10-20) 04/18/18 06:39 BUN 17 mg/dL (9-20) 04/18/18 06:39 Creatinine 0.8 mg/dL (0.8-1.5) 04/18/18 06:39 Est GFR ( Amer) > 60 04/18/18 06:39 Est GFR (Non-Af Amer) > 60 04/18/18 06:39 POC Glucose (mg/dL) 108 mg/dL (65-110) 04/16/18 06:31 Random Glucose 101 mg/dL (75-110) 04/18/18 06:39 Calcium 9.3 mg/dl (8.6-10.4) 04/18/18 06:39 Phosphorus 3.7 mg/dL (2.5-4.5) 04/18/18 06:39 Magnesium 1.8 mg/dL (1.6-2.3) 04/18/18 06:39 Total Bilirubin 0.4 mg/dL (0.2-1.3) 04/18/18 06:39 GGT 143 U/L (8-78) H 04/16/18 16:32 AST 216 U/L (17-59) H D 04/18/18 06:39 ALT 289 U/L (21-72) H 04/18/18 06:39 Alkaline Phosphatase 91 U/L (38-126) 04/18/18 06:39 Total Creatine Kinase 200 U/L (55-170) H 04/12/18 18:10 Troponin I < 0.0120 ng/mL (0.00-0.120) 04/12/18 16:17 Total Protein 7.3 g/dL (6.3-8.3) 04/18/18 06:39 Albumin 4.2 g/dL (3.5-5.0) 04/18/18 06:39 Globulin 3.1 gm/dL (2.2-3.9) 04/18/18 06:39 Albumin/Globulin Ratio 1.3 (1.0-2.1) 04/18/18 06:39 Amylase 73 U/L (30-110) 04/12/18 18:10 Lipase 188 U/L (23-300) 04/12/18 18:10 Urine Color Yellow (YELLOW) 04/12/18 15:28 Urine Clarity Hazy (Clear) 04/12/18 15:28 Urine pH 5.0 (5.0-8.0) 04/12/18 15:28 Ur Specific [place] 1.026 (1.003-1.030) 04/12/18 15:28 Urine Protein 2+ mg/dL (NEGATIVE) H 04/12/18 15:28 Urine Glucose (UA) 1+ mg/dL (Normal) H 04/12/18 15:28 Urine Ketones 1+ mg/dL (NEGATIVE) H 04/12/18 15:28 Urine Blood 1+ (NEGATIVE) H 04/12/18 15:28 Urine Nitrate Negative (NEGATIVE) 04/12/18 15:28 Urine Bilirubin Negative (NEGATIVE) 04/12/18 15:28 Urine Urobilinogen 2.0 mg/dL (0.2-1.0) 04/12/18 15:28 Ur Leukocyte Esterase Neg Jean Paul/uL (Negative) 04/12/18 15:28 Urine WBC (Auto) 3 /hpf (0-5) 04/12/18 15:28 Urine RBC (Auto) 13 /hpf (0-3) H 04/12/18 15:28 Ur Squamous Epith Cells < 1 /hpf (0-5) 04/12/18 15:28 Urine Bacteria Rare (<OCC) 04/12/18 15:28 Urine Opiates Screen Negative (NEGATIVE) 04/12/18 06:30 Urine Methadone Screen Negative (NEGATIVE) 04/12/18 06:30 Ur Barbiturates Screen Negative (NEGATIVE) 04/12/18 06:30 Ur Phencyclidine Scrn Negative (NEGATIVE) 04/12/18 06:30 Ur Amphetamines Screen Negative (NEGATIVE) 04/12/18 06:30 U Benzodiazepines Scrn Negative (NEGATIVE) 04/12/18 06:30 U Oth Cocaine Metabols Negative (NEGATIVE) 04/12/18 06:30 U Cannabinoids Screen Negative (NEGATIVE) 04/12/18 06:30 Alcohol, Quantitative 43 mg/dl (0-10) H 04/12/18 16:17 Hepatitis A IgM Ab Negative (NEGATIVE) 04/16/18 16:32 Hep Bs Antigen Negative (NEGATIVE) 04/16/18 16:32 Hep B Core IgM Ab Negative (NEGATIVE) 04/16/18 16:32 Hepatitis C Antibody Negative (NEGATIVE) 04/16/18 16:32 - Hospital Course Hospital Course: On admission: HPI: This a 53 year old male with PMHx of Alcohol Use Disorder, DTs, Thrombocytopenia, Anemia of Chronic Disease, and Paranoid Schizophrenia who presents to the ED with dizziness resulting in a fall, brought in by ambulance. Patient reports today he was walking around this afternoon in a kitchen (was not able to say where exactly, as patient is homeless), when he felt dizzy, unsteady, and fell. He is unaware if he started to seizure, but admits when he woke up he urinated on himself, denied any fecal incontinence. The dizziness is associated with a squeezing chest pain that has been occurring for the last two years. A headache rated 8 out of 10 and epigastric tenderness are both present. The patient was unsure of when he drank last, but stated he had not had a drink today. Upon exam the patient was mildly tremulous and aware of place and city but the day. His visited the ED 3x in February 2018 for similar symptoms and followed up at the clinic on 03/24, but has not followed up with psych. Denied any associated headache, changes in vision, shortness of breath, n/v/d/c, or dysuria. Hospital course: Patient was admitted for fall and possible seizure, likely secondary to alcohol intoxication or withdrawal. Patient's initial CT of head was unremarkable for bleed. His initial EKG did not reveal any signs of QTc prolongation. He became agitated while he was hospitalized, likely due to alcohol withdrawal and was managed with Ativan taper as needed along with Folic acid, Thiamine and IV fluids for withdrawal symptoms. He was placed on seizure, aspiration and CIWA precautions. Patient was found to be tachycardic and tremulous, which was likely due to alcohol withdrawal, treated with Clonidine and Ativan as needed. 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 He was also noted to have thrombocytopenia which was monitored throughout his stay. Due to patient's history of paranoid schizophrenia, he was initially started back on his home medications of Lexapro, Gabapentin, and Risperdal. Psychiatry was consulted, who evaluated patient for history of alcohol abuse and recommended detox with Ativan taper, which he completed during his hospital stay. His liver function tests remained elevated and continued to trend up, and patient was subsequently taken off Lexapro, Zofran and Hydralazine due to hepatotoxicity. Hepatitis panel , GGT and abdominal ultrasound were found to be within normal limits. GI was consulted who recommended outpatient follow up for history of transaminitis including INR, TSH, iron panel and AFP. Upon discharge, patient was more alert, smiling, not tremulous and no longer agitated. Imaging: CXR: no active disease. Head CT: no acute abnormality. Abdomen US: tiny cyst lower pole of right kidney. contracted gallbladder with common bile duct unremarkable. partial imaging of the pancreas. Discharge summary: Patient medically stable to be discharged to nursing home today. Patient is recommended to follow up in [facility] ([phone]) in 04/22/18 , as scheduled. As per GI recommendations, recommended liver workup including INR, TSH, iron panel, AFP. Patient was encouraged to return to ER if symptoms recur or worsen. No prescriptions provided to patient at this time and home medication were not continued given patient's history of falls, alcohol abuse. Discharge Exam - Head Exam Head Exam: ATRAUMATIC, NORMAL INSPECTION, NORMOCEPHALIC - Eye Exam Eye Exam: EOMI - ENT Exam ENT Exam: Mucous Membranes Moist - Neck Exam Neck exam: Full Rom - Respiratory Exam Respiratory Exam: Clear to PA & Lateral, NORMAL BREATHING PATTERN. absent: Rales, Rhonchi, Wheezes, Respiratory Distress, Stridor - Cardiovascular Exam Cardiovascular Exam: REGULAR RHYTHM, +S1, +S2 - GI/Abdominal Exam GI & Abdominal Exam: Normal Bowel Sounds, Soft. absent: Diminished Bowel Sounds , Distended, Firm, Guarding, Hernia, Tenderness - Extremities Exam Additional comments: no calf tenderness, no pedal edema. - Neurological Exam Neurological exam: Alert - Psychiatric Exam Psychiatric exam: Normal Affect, Normal Mood Discharge Plan - Follow Up Plan Condition: STABLE Disposition: OTHER INSTITUTION Instructions: Dizziness, Nonvertigo, (DC), Alcohol Withdrawal (DC), Alcohol Abuse and Alcoholism (DC) Additional Instructions: Patient medically stable to be discharge to nursing home today. Patient is recommended to follow up in [facility] ([phone]) in 04/22/18 , as scheduled. As per GI recommendations, recommended liver workup including INR, TSH, iron panel, AFP. Patient was encouraged to return to ER if symptoms recur or worsen. No prescriptions provided to patient at this time. Referrals: [facility] at [facility] [Outside] <Jesus Rodriguez - Last Filed: 04/18/18 18:46> Provider - Provider Date of Admission: 04/14/18 11:18 Attending physician: Jesus Rodriguez MD Hospital Course - Lab Results Lab Results: Most Recent Lab Values WBC 5.2 K/uL (4.8-10.8) 04/18/18 06:39 RBC 4.17 Mil/uL (4.40-5.90) L 04/18/18 06:39 Hgb 12.7 g/dL (12.0-18.0) 04/18/18 06:39 Hct 37.5 % (35.0-51.0) 04/18/18 06:39 MCV 90.0 fL (80.0-94.0) 04/18/18 06:39 MCH 30.6 pg (27.0-31.0) 04/18/18 06:39 MCHC 34.0 g/dL (33.0-37.0) 04/18/18 06:39 RDW 16.4 % (11.5-14.5) H 04/18/18 06:39 Plt Count 76 K/uL (130-400) L 04/18/18 06:39 MPV 8.2 fL (7.2-11.7) 04/18/18 06:39 Neut % (Auto) 37.8 % (50.0-75.0) L 04/18/18 06:39 Lymph % (Auto) 48.1 % (20.0-40.0) H 04/18/18 06:39 Tyrrell % (Auto) 10.3 % (0.0-10.0) H 04/18/18 06:39 Eos % (Auto) 3.1 % (0.0-4.0) 04/18/18 06:39 Baso % (Auto) 0.7 % (0.0-2.0) 04/18/18 06:39 Neut # (Auto) 2.0 K/uL (1.8-7.0) 04/18/18 06:39 Lymph # (Auto) 2.5 K/uL (1.0-4.3) 04/18/18 06:39 Tyrrell # (Auto) 0.5 K/uL (0.0-0.8) 04/18/18 06:39 Eos # (Auto) 0.2 K/uL (0.0-0.7) 04/18/18 06:39 Baso # (Auto) 0.0 K/uL (0.0-0.2) 04/18/18 06:39 Differential Comment 04/12/18 16:17 Sodium 138 mmol/L (132-148) 04/18/18 06:39 Potassium 3.7 mmol/L (3.6-5.2) 04/18/18 06:39 Chloride 100 mmol/L (98-107) 04/18/18 06:39 Carbon Dioxide 25 mmol/L (22-30) 04/18/18 06:39 Anion Gap 16 (10-20) 04/18/18 06:39 BUN 17 mg/dL (9-20) 04/18/18 06:39 Creatinine 0.7 mg/dL (0.8-1.5) L 04/18/18 11:15 Est GFR ( Amer) > 60 04/18/18 11:15 Est GFR (Non-Af Amer) > 60 04/18/18 11:15 POC Glucose (mg/dL) 149 mg/dL (65-110) H 04/18/18 11:23 Random Glucose 101 mg/dL (75-110) 04/18/18 06:39 Hemoglobin A1c 5.1 % (4.2-6.5) 04/17/18 08:42 Calcium 9.3 mg/dl (8.6-10.4) 04/18/18 06:39 Phosphorus 3.7 mg/dL (2.5-4.5) 04/18/18 06:39 Magnesium 1.8 mg/dL (1.6-2.3) 04/18/18 06:39 Iron 45 ug/dL (49-181) L 04/18/18 11:15 TIBC 390 ug/dL (250-450) 04/18/18 11:15 % Saturation 12 (20-55) L 04/18/18 11:15 Transferrin 295.86 mg/dL (206-381) 04/18/18 11:15 Ferritin 206.0 ng/mL 04/18/18 11:15 Total Bilirubin 0.4 mg/dL (0.2-1.3) 04/18/18 06:39 GGT 143 U/L (8-78) H 04/16/18 16:32 AST 216 U/L (17-59) H D 04/18/18 06:39 ALT 289 U/L (21-72) H 04/18/18 06:39 Alkaline Phosphatase 91 U/L (38-126) 04/18/18 06:39 Total Creatine Kinase 200 U/L (55-170) H 04/12/18 18:10 Troponin I < 0.0120 ng/mL (0.00-0.120) 04/12/18 16:17 Total Protein 7.3 g/dL (6.3-8.3) 04/18/18 06:39 Albumin 4.2 g/dL (3.5-5.0) 04/18/18 06:39 Globulin 3.1 gm/dL (2.2-3.9) 04/18/18 06:39 Albumin/Globulin Ratio 1.3 (1.0-2.1) 04/18/18 06:39 Amylase 73 U/L (30-110) 04/12/18 18:10 Lipase 188 U/L (23-300) 04/12/18 18:10 TSH 3rd Generation 1.42 mIU/L (0.46-4.68) 04/18/18 11:15 Urine Color Yellow (YELLOW) 04/12/18 15:28 Urine Clarity Hazy (Clear) 04/12/18 15:28 Urine pH 5.0 (5.0-8.0) 04/12/18 15:28 Ur Specific [place] 1.026 (1.003-1.030) 04/12/18 15:28 Urine Protein 2+ mg/dL (NEGATIVE) H 04/12/18 15:28 Urine Glucose (UA) 1+ mg/dL (Normal) H 04/12/18 15:28 Urine Ketones 1+ mg/dL (NEGATIVE) H 04/12/18 15:28 Urine Blood 1+ (NEGATIVE) H 04/12/18 15:28 Urine Nitrate Negative (NEGATIVE) 04/12/18 15:28 Urine Bilirubin Negative (NEGATIVE) 04/12/18 15:28 Urine Urobilinogen 2.0 mg/dL (0.2-1.0) 04/12/18 15:28 Ur Leukocyte Esterase Neg Jean Paul/uL (Negative) 04/12/18 15:28 Urine WBC (Auto) 3 /hpf (0-5) 04/12/18 15:28 Urine RBC (Auto) 13 /hpf (0-3) H 04/12/18 15:28 Ur Squamous Epith Cells < 1 /hpf (0-5) 04/12/18 15:28 Urine Bacteria Rare (<OCC) 04/12/18 15:28 Urine Opiates Screen Negative (NEGATIVE) 04/12/18 06:30 Urine Methadone Screen Negative (NEGATIVE) 04/12/18 06:30 Ur Barbiturates Screen Negative (NEGATIVE) 04/12/18 06:30 Ur Phencyclidine Scrn Negative (NEGATIVE) 04/12/18 06:30 Ur Amphetamines Screen Negative (NEGATIVE) 04/12/18 06:30 U Benzodiazepines Scrn Negative (NEGATIVE) 04/12/18 06:30 U Oth Cocaine Metabols Negative (NEGATIVE) 04/12/18 06:30 U Cannabinoids Screen Negative (NEGATIVE) 04/12/18 06:30 Alcohol, Quantitative 43 mg/dl (0-10) H 04/12/18 16:17 Hepatitis A IgM Ab Negative (NEGATIVE) 04/16/18 16:32 Hep Bs Antigen Negative (NEGATIVE) 04/16/18 16:32 Hep B Core IgM Ab Negative (NEGATIVE) 04/16/18 16:32 Hepatitis C Antibody Negative (NEGATIVE) 04/16/18 16:32 Attending/Attestation - Attestation I have personally seen and examined this patient.: Yes I have fully participated in the care of the patient.: Yes I have reviewed all pertinent clinical information, including history, physical exam and plan: Yes Notes (Text): 04/18/18 18:39 Patient was seen and examined at 8:15 AM Exam, assessment and plan and discharge orders were gone over with the resident. Also on ROS: NO complaints upon FULL ROS NO hallucinations NO tremors Also on Exam: HEENT, Cardio, Respiratory, GI, Ext, II through XII were unremarkable. NO asterixis/tremors noted Patient was observed walking on the medical floor after exam, without any difficulty Assessments: 1). Alcohol Intoxication/Withdrawl 2). S/P Fall 3). Transaminitis 4). Paranoid Schizophrenia LFTs trending down and likely related to his history of Alcohol Abuse NO signs of withdrawl on exam In light of the Alcohol Abuse, multiple ER visits recently for this issue, and sequalea of the the Alcohol Abuse (anemia, throbocytopenia, fall), it would not be safe for this patient to continue Lexapro and Risperdal and therefore NO Rx were provided. Spoke with Dietary Aide Diane and she will arrange for transportation to nursing home. Patient was advised to follow up with the [facility] and he stated that he already had an appointment scheduled for 04/22/18. Jesus Rodriguez D.O.
[2018-04-18 11:35] LABS: GFR AFRICAN-AMERICAN > 60; GFR NON-AFRICAN AMERICAN > 60
[2018-04-18 11:37] LABS: IRON 45 ug/dL (49-181)
[2018-04-18 11:47] LABS: % IRON SATURATION 12 (20-55); TOTAL IRON BINDING CAPACITY 390 ug/dL (250-450)
== END 2018-04-18 13:43 | disposition home or self-care (01) | DRG 750 ==
LOC: C.ER 15:07 → C.9E 18:00 → C.6T 19:42 → OBSVTOIN 04-14 11:18
PROVIDERS: ADMIT Family Medicine; ATTEND Family Medicine
PROC: HZ2ZZZZ Detoxification Services for Substance Abuse Treatment (ICD-10-PCS; principal; 2018-04-14)
PROC: HZ52ZZZ Individual Psychotherapy for Substance Abuse Treatment, Cognitive-Behavioral (ICD-10-PCS; 2018-04-14)
PROC: HZ59ZZZ Individual Psychotherapy for Substance Abuse Treatment, Supportive (ICD-10-PCS; 2018-04-14)
PROC: HZ56ZZZ Individual Psychotherapy for Substance Abuse Treatment, Psychoeducation (ICD-10-PCS; 2018-04-14)
PROC: HZ42ZZZ Group Counseling for Substance Abuse Treatment, Cognitive-Behavioral (ICD-10-PCS; 2018-04-14)
PROC: HZ46ZZZ Group Counseling for Substance Abuse Treatment, Psychoeducation (ICD-10-PCS; 2018-04-14)
PROC: GZHZZZZ Group Psychotherapy (ICD-10-PCS; 2018-04-14)
PROC: GZ58ZZZ Individual Psychotherapy, Cognitive-Behavioral (ICD-10-PCS; 2018-04-14)
PROC: GZ56ZZZ Individual Psychotherapy, Supportive (ICD-10-PCS; 2018-04-14)
DX: F10.230 Alcohol dependence with withdrawal, uncomplicated (principal); F25.1 Schizoaffective disorder, depressive type; D69.6 Thrombocytopenia, unspecified; K75.89 Other specified inflammatory liver diseases; R56.9 Unspecified convulsions; I10 Essential (primary) hypertension; F10.220 Alcohol dependence with intoxication, uncomplicated; Y90.2 Blood alcohol level of 40-59 mg/100 ml; F10.231 Alcohol dependence with withdrawal delirium; Z59.0 Homelessness; Z91.81 History of falling; Z87.891 Personal history of nicotine dependence; F91.8 Other conduct disorders

== ENCOUNTER 2018-04-22 14:33 | Emergency (ER) | payer OTHER ==
[2018-04-22 14:33] VITALS: BMI 26.5
[2018-04-22 14:48] VITALS: O2SAT 100
[2018-04-22 16:05] VITALS: BP 150/99; PULSE 70; RESP 16; TEMP 97.7
--- NOTE | 2018-04-22 16:25 | C.PDOC ---
History Of Present Illness 53 yo male with PMH of alcoholism and paranoid schizophrenia came to ED for refill of Risperdal and Trazadone. Pt states "I'm fine." Pt was admitted to last week for DTs and discharged 3 days ago. Pt notes he has not been drinking since discharge and came to the clinic for the refills. He was sent upstairs from the clinic for the refills. Pt admits to having trouble sleeping. Otherwise denies , si, hi, or hallucinations. Time Seen by Provider: 04/22/18 15:06 Chief Complaint (Nursing): Medical Clearance History Per: Patient History/Exam Limitations: no limitations Onset/Duration Of Symptoms: Days Past Medical History Vital Signs: Last Vital Signs Temp 97.7 F 04/22/18 16:04 Pulse 70 04/22/18 16:04 Resp 16 04/22/18 16:04 BP 150/99 H 04/22/18 16:04 Pulse Ox 100 04/22/18 16:25 - Medical History PMH: Bipolar Disorder, Fractures (left wrist 4 days ago cast intact), HTN, Paranoia, Seizures Denies: Chronic Kidney Disease Surgical History: Hernia Repair - [facility] DETOXIFICATION SERVICES FOR SUBSTANCE ABUSE TREATMENT (04/14/18) GROUP PROMOTION OFFICER FOR SUBSTANCE ABUSE TREATMENT, PSYCHOEDUCATION (04/14/18) GROUP PROMOTION OFFICER FOR SUBSTANCE ABUSE, COGNITIVE BEHAVIORAL (04/14/18) GROUP PSYCHOTHERAPY (04/14/18) INDIV PSYCHOTHERAPY FOR SUBSTANCE ABUSE TREATMENT, SUPPORT (04/14/18) INDIV PSYCHOTHERAPY FOR SUBSTANCE ABUSE, COGNITIV BEHAVIORAL (04/14/18) INDIV PSYCHOTHERAPY FOR SUBSTANCE ABUSE, PSYCHOEDUCATION (04/14/18) INDIVIDUAL PSYCHOTHERAPY, COGNITIVE-BEHAVIORAL (04/14/18) INDIVIDUAL PSYCHOTHERAPY, SUPPORTIVE (04/14/18) MEDICATION MANAGEMENT (01/27/18) Family History: States: Unknown Family Hx - Social History Hx Tobacco Use: No (former smoker) Hx Alcohol Use: Yes (alcohol dependent x 20 yrs.) Hx Substance Use: No - Immunization History Hx Tetanus Toxoid Vaccination: No Hx Influenza Vaccination: No Hx Pneumococcal Vaccination: No Review Of Systems Except As Marked, All Systems Reviewed And Found Negative. Psych: Positive for: Depression Physical Exam - Physical Exam Appears: Well, Non-toxic, No Acute Distress Skin: Normal Color, Warm, Dry Head: Atraumatic, Normacephalic Eye(s): bilateral: Normal Inspection, EOMI Nose: Normal Neck: Normal, Normal ROM, Supple Chest: Symmetrical Cardiovascular: Rhythm Regular Respiratory: Normal Breath Sounds Gastrointestinal/Abdominal: Normal Exam Back: Normal Inspection Extremity: Normal ROM Neurological/Psych: Oriented x3, Normal Speech, Normal Cognition Gait: Steady ED Course And Treatment O2 Sat by Pulse Oximetry: 100 Progress Note: Case discussed with [employer] worker helper Muna who saw pt and instructed outpt follow up with [facility]. Discharge summary reviewed, Dr Rodriguez note states he will not give rx for lexapro and risperdal secondary to anemia and low platelets and falls. Case discussed with Dr Guerrero, agreed upon out pt follow up without rx. Pt verbalizes understanding of going to [facility] directly after discharge. Disposition - Disposition Disposition: HOME/ ROUTINE Disposition Time: 16:00 Condition: STABLE Additional Instructions: Follow up with [facility] directly after discharge. [facility] Address: [address] [place] [address] Instructions: Alcohol Abuse and Alcoholism (DC) Forms: [facility] (Sami) - Clinical Impression Clinical Impression: Alcohol abuse, Schizophrenia
== END 2018-04-22 16:07 | disposition home or self-care (01) ==
LOC: C.ER 14:33
DX: F20.9 Schizophrenia, unspecified (principal); F10.10 Alcohol abuse, uncomplicated

== ENCOUNTER 2018-04-28 13:32 | Emergency (ER) | payer MEDICAID, SELFPAY ==
[2018-04-28 13:32] VITALS: BMI 26.5
[2018-04-28 19:17] VITALS: BP 118/78; PULSE 72; RESP 18; TEMP 98.2; O2SAT 95
--- NOTE | 2018-04-28 19:52 | C.PDOC ---
History Of Present Illness Pt was BIBEMS due to public alcohol intoxication. Time Seen by Provider: 04/28/18 14:25 Chief Complaint (Nursing): Substance Abuse History Per: Patient, EMS History/Exam Limitations: intoxication Onset/Duration Of Symptoms: Days Current Symptoms Are (Timing): Still Present Suicide/Self Injury Attempted (Context): None Modifying Factor(s): Alcohol Severity: Moderate Associated Symptoms: denies: Suicidal Thoughts, Suicidal Plan Additional History Per: Prior Records Past Medical History Reviewed: Historical Data, Nursing Documentation, Vital Signs Vital Signs: Last Vital Signs Temp 98.2 F 04/28/18 19:16 Pulse 72 04/28/18 19:16 Resp 18 04/28/18 19:16 BP 118/78 04/28/18 19:16 Pulse Ox 95 04/28/18 19:16 - Medical History PMH: Bipolar Disorder, Fractures (left wrist 4 days ago cast intact), HTN, Paranoia, Seizures Other PMH: Alcohol abuse Surgical History: Hernia Repair - [facility] Procedures DETOXIFICATION SERVICES FOR SUBSTANCE ABUSE TREATMENT (04/14/18) GROUP WEAVING INSPECTOR FOR SUBSTANCE ABUSE TREATMENT, PSYCHOEDUCATION (04/14/18) GROUP WEAVING INSPECTOR FOR SUBSTANCE ABUSE, COGNITIVE BEHAVIORAL (04/14/18) GROUP PSYCHOTHERAPY (04/14/18) INDIV PSYCHOTHERAPY FOR SUBSTANCE ABUSE TREATMENT, SUPPORT (04/14/18) INDIV PSYCHOTHERAPY FOR SUBSTANCE ABUSE, COGNITIV BEHAVIORAL (04/14/18) INDIV PSYCHOTHERAPY FOR SUBSTANCE ABUSE, PSYCHOEDUCATION (04/14/18) INDIVIDUAL PSYCHOTHERAPY, COGNITIVE-BEHAVIORAL (04/14/18) INDIVIDUAL PSYCHOTHERAPY, SUPPORTIVE (04/14/18) MEDICATION MANAGEMENT (01/27/18) Family History: States: Unknown Family Hx - Social History Hx Tobacco Use: No (former smoker) Hx Alcohol Use: Yes (alcohol dependent x 20 yrs.) Hx Substance Use: No - Immunization History Hx Tetanus Toxoid Vaccination: No Hx Influenza Vaccination: No Hx Pneumococcal Vaccination: No Review Of Systems Review Of Systems: ROS cannot be obtained secondary to pt's inabilty to answer questions. Physical Exam - Physical Exam Appears: Non-toxic, No Acute Distress Skin: Normal Color, Warm, Dry Head: Atraumatic, Normacephalic Eye(s): bilateral: PERRL, EOMI Neck: Normal ROM, No Midline Cervical Tenderness, No Step Off Deformity, Supple Chest: Symmetrical, No Deformity Cardiovascular: Rhythm Regular Respiratory: Normal Breath Sounds, No Accessory Muscle Use Gastrointestinal/Abdominal: Soft Extremity: Normal ROM, No Deformity Neurological/Psych: Oriented x3, Normal Motor, Normal Sensation Gait: Unable To Assess ED Course And Treatment O2 Sat by Pulse Oximetry: 95 Pulse Ox Interpretation: Normal Progress Note: Pt is now AAOx3. Clinically sober. Steady gait. Reassessment Condition: Improved Disposition Counseled Patient/Family Regarding: Diagnosis, Need For Followup - Disposition Referrals: [facility] at [facility] [Outside] Disposition: HOME/ ROUTINE Disposition Time: 19:51 Condition: IMPROVED Additional Instructions: Avoid alcohol. Follow up in the clinic. Return to the ER if you develop worsening of symptoms or if you have any other concerns. Instructions: Alcohol Abuse and Alcoholism (DC) - Clinical Impression Clinical Impression: Alcohol abuse
== END 2018-04-28 20:15 | disposition home or self-care (01) ==
LOC: C.ER 13:32
DX: F10.129 Alcohol abuse with intoxication, unspecified (principal); Y90.9 Presence of alcohol in blood, level not specified

== ENCOUNTER 2018-05-04 18:41 | Emergency (ER) | payer SELFPAY ==
[2018-05-04 18:41] VITALS: BMI 26.5
--- NOTE | 2018-05-04 20:45 | C.PDOC ---
History Of Present Illness 53 year old male with a Hx of schizophrenia presents to the ER via EMS for public intoxication. Patient reports he "blacked out" last night. He has been frequently seen in the ER for intoxication. Denies other complaints at this time. Time Seen by Provider: 05/04/18 20:30 Chief Complaint (Nursing): Substance Abuse History Per: Patient History/Exam Limitations: no limitations Onset/Duration Of Symptoms: Hrs Current Symptoms Are (Timing): Still Present Suicide/Self Injury Attempted (Context): None Modifying Factor(s): Alcohol Associated Symptoms: denies: Depression, Suicidal Thoughts Involuntary Hold By: None Recent travel outside of the [place]: No Past Medical History Reviewed: Historical Data, Nursing Documentation, Vital Signs Vital Signs: Last Vital Signs Temp 97.5 F L 05/04/18 18:58 Pulse 78 05/04/18 18:58 Resp 20 05/04/18 18:58 BP 95/57 L 05/04/18 18:58 Pulse Ox 96 05/04/18 20:51 - Medical History PMH: Bipolar Disorder, Fractures (left wrist 4 days ago cast intact), HTN, Paranoia, Seizures Denies: Chronic Kidney Disease Surgical History: Hernia Repair - [facility] Procedures DETOXIFICATION SERVICES FOR SUBSTANCE ABUSE TREATMENT (04/14/18) GROUP REEL ASSEMBLER FOR SUBSTANCE ABUSE TREATMENT, PSYCHOEDUCATION (04/14/18) GROUP REEL ASSEMBLER FOR SUBSTANCE ABUSE, COGNITIVE BEHAVIORAL (04/14/18) GROUP PSYCHOTHERAPY (04/14/18) INDIV PSYCHOTHERAPY FOR SUBSTANCE ABUSE TREATMENT, SUPPORT (04/14/18) INDIV PSYCHOTHERAPY FOR SUBSTANCE ABUSE, COGNITIV BEHAVIORAL (04/14/18) INDIV PSYCHOTHERAPY FOR SUBSTANCE ABUSE, PSYCHOEDUCATION (04/14/18) INDIVIDUAL PSYCHOTHERAPY, COGNITIVE-BEHAVIORAL (04/14/18) INDIVIDUAL PSYCHOTHERAPY, SUPPORTIVE (04/14/18) MEDICATION MANAGEMENT (01/27/18) Family History: States: Unknown Family Hx - Social History Hx Tobacco Use: No (former smoker) Hx Alcohol Use: Yes (alcohol dependent x 20 yrs.) Hx Substance Use: No - Immunization History Hx Tetanus Toxoid Vaccination: No Hx Influenza Vaccination: No Hx Pneumococcal Vaccination: No Review Of Systems Constitutional: Negative for: Fever, Chills Cardiovascular: Negative for: Chest Pain, Palpitations Respiratory: Negative for: Cough, Shortness of Breath Gastrointestinal: Negative for: Nausea, Vomiting Neurological: Negative for: Weakness, Numbness Physical Exam - Physical Exam Appears: Non-toxic Skin: Normal Color, Warm, Dry Head: Atraumatic, Normacephalic Eye(s): bilateral: Normal Inspection Oral Mucosa: Moist Neck: Normal, Supple Chest: Symmetrical, No Tenderness Cardiovascular: Rhythm Regular Respiratory: Normal Breath Sounds, No Rales, No Rhonchi, No Wheezing Gastrointestinal/Abdominal: Soft, No Tenderness Neurological/Psych: Oriented x3, Normal Speech ED Course And Treatment O2 Sat by Pulse Oximetry: 96 (Room air) Pulse Ox Interpretation: Normal Reevaluation Time: 00:04 Reassessment Condition: Unchanged (Patient still very intoxicated and difficult to arouse.) Disposition - Disposition Disposition Time: 00:45 Condition: STABLE Forms: [facility] (Khmer) - Clinical Impression Clinical Impression: Alcohol intoxication - Scribe Statement The provider has reviewed the documentation as recorded by the Scribe Matheus James All medical record entries made by the Scribe were at my direction and personally dictated by me. I have reviewed the chart and agree that the record accurately reflects my personal performance of the history, physical exam, medical decision making, and the department course for this patient. I have also personally directed, reviewed, and agree with the discharge instructions and disposition. Physician Patient Turnover Patient Signed Over To: Masood Lara Handoff Comments: pending sobriety
[2018-05-05 00:33] VITALS: TEMP 98.4
[2018-05-05 04:13] VITALS: BP 100/60; PULSE 78; RESP 14; O2SAT 97
== END 2018-05-05 05:45 | disposition home or self-care (01) ==
LOC: C.ER 18:41
DX: F10.129 Alcohol abuse with intoxication, unspecified (principal); F20.9 Schizophrenia, unspecified

== ENCOUNTER 2018-05-24 21:14 | Emergency (ER) | payer MEDICAID, OTHER ==
[2018-05-24 21:15] VITALS: BMI 26.5
[2018-05-24 21:57] VITALS: TEMP 98.5
[2018-05-24] MEDS ORDERED: Tdap Vaccine 0.5 ml Vial (10-64 yrs) IM ONE ×2 (22:05→23:31)
--- NOTE | 2018-05-24 22:18 | C.PDOC ---
History Of Present Illness 53 year old male is brought to the ED by EMS for alcohol intoxication. As per EMS patient was picked up from [facility], patient has a strong smell of alcohol. Upon arrival is noted patient has a laceration over his right eyebrow, patient is lethargic, arousable to external rub but unable to provide further history. Time Seen by Provider: 05/24/18 21:30 Chief Complaint (Nursing): Substance Abuse History Per: EMS History/Exam Limitations: intoxication Onset/Duration Of Symptoms: Hrs Current Symptoms Are (Timing): Still Present Suicide/Self Injury Attempted (Context): None Modifying Factor(s): Alcohol Associated Symptoms: denies: Depression, Suicidal Thoughts, Suicidal Plan Involuntary Hold By: None Recent travel outside of the [place]: No Additional History Per: EMS Past Medical History Reviewed: Historical Data, Nursing Documentation, Vital Signs Vital Signs: Last Vital Signs Temp 98.5 F 05/24/18 21:53 Pulse 94 H 05/24/18 21:53 Resp 20 05/24/18 21:53 BP 96/54 L 05/24/18 21:53 Pulse Ox 99 05/25/18 00:03 - Medical History PMH: Bipolar Disorder, Fractures (left wrist 4 days ago cast intact), HTN, Paranoia, Seizures Denies: Chronic Kidney Disease Surgical History: Hernia Repair - [facility] Procedures DETOXIFICATION SERVICES FOR SUBSTANCE ABUSE TREATMENT (04/14/18) GROUP PRINTED CIRCUIT BOARD PANELS TRIMMER FOR SUBSTANCE ABUSE TREATMENT, PSYCHOEDUCATION (04/14/18) GROUP PRINTED CIRCUIT BOARD PANELS TRIMMER FOR SUBSTANCE ABUSE, COGNITIVE BEHAVIORAL (04/14/18) GROUP PSYCHOTHERAPY (04/14/18) INDIV PSYCHOTHERAPY FOR SUBSTANCE ABUSE TREATMENT, SUPPORT (04/14/18) INDIV PSYCHOTHERAPY FOR SUBSTANCE ABUSE, COGNITIV BEHAVIORAL (04/14/18) INDIV PSYCHOTHERAPY FOR SUBSTANCE ABUSE, PSYCHOEDUCATION (04/14/18) INDIVIDUAL PSYCHOTHERAPY, COGNITIVE-BEHAVIORAL (04/14/18) INDIVIDUAL PSYCHOTHERAPY, SUPPORTIVE (04/14/18) MEDICATION MANAGEMENT (01/27/18) Family History: States: Unknown Family Hx - Social History Hx Tobacco Use: No (former smoker) Hx Alcohol Use: Yes (alcohol dependent x 20 yrs.) Hx Substance Use: No - Immunization History Hx Tetanus Toxoid Vaccination: No Hx Influenza Vaccination: No Hx Pneumococcal Vaccination: No Review Of Systems Review Of Systems: ROS cannot be obtained secondary to pt's inabilty to answer questions. (due to alcohol intoxication) Physical Exam - Physical Exam Appears: Non-toxic, Other (AOB, lethargic) Skin: Normal Color, Warm, Dry Head: Atraumatic, Normacephalic, Laceration (1 cm nya right eyebrow) Eye(s): bilateral: Normal Inspection Neck: Normal ROM, Supple Chest: Symmetrical Cardiovascular: Rhythm Regular Respiratory: Normal Breath Sounds, No Rales, No Rhonchi, No Wheezing Gastrointestinal/Abdominal: Soft, No Tenderness, No Guarding, No Rebound Back: Normal Inspection Extremity: No Tenderness, No Swelling Extremity: Bilateral: Atraumatic, Normal Color And Temperature, Normal ROM ( moving all extremities w/o difficulty, spontaneously) Neurological/Psych: Other (lethargic, arousable to external rub) Gait: Unable To Assess ED Course And Treatment O2 Sat by Pulse Oximetry: 99 (ON RA) Pulse Ox Interpretation: Normal Medical Decision Making Medical Decision Making: Plan: * CT C-SPine * CT head * Tetanus immunization FS:132. CT head and CT c-spine negative. Patient now more alert. Steristrips applied to R forehead laceration as superficial as patient not cooperating. 01:[address] Lara to reevaluate when sober. Disposition - Disposition Disposition Time: 01:00 Condition: FAIR Forms: [facility] (Botswanan) - Clinical Impression Clinical Impression: Thyroid nodule, Alcohol abuse - Scribe Statement The provider has reviewed the documentation as recorded by the Scribe Meliton Finnegan All medical record entries made by the Scribe were at my direction and personally dictated by me. I have reviewed the chart and agree that the record accurately reflects my personal performance of the history, physical exam, medical decision making, and the department course for this patient. I have also personally directed, reviewed, and agree with the discharge instructions and disposition.
[2018-05-25 04:19] VITALS: BP 110/62; PULSE 92; RESP 16; O2SAT 97
--- NOTE | 2018-05-25 06:58 | CT ---
Date of service: 05/24/2018 PROCEDURE: CT HEAD WITHOUT CONTRAST. HISTORY: head injury, alcohol intoxication COMPARISON: None available. TECHNIQUE: Axial computed tomography images were obtained through the head/brain without intravenous contrast. Radiation dose: Total exam DLP = 818 mGy-cm. This CT exam was performed using one or more of the following dose reduction techniques: Automated exposure control, adjustment of the mA and/or kV according to patient size, and/or use of iterative reconstruction technique. FINDINGS: HEMORRHAGE: No intracranial hemorrhage. BRAIN: Mild atrophy. VENTRICLES: Unremarkable. No hydrocephalus. CALVARIUM: Unremarkable. PARANASAL SINUSES: Unremarkable as visualized. No significant inflammatory changes. MASTOID AIR CELLS: Unremarkable as visualized. No inflammatory changes. OTHER FINDINGS: Mild scalp swelling. IMPRESSION: No acute intracranial hemorrhage. Additional findings as above. If symptoms persists, consider correlation with MRI. These findings were preliminarily reported at 11:42 p.m. on 05/24/[address] Grady Zendejas from [facility].
--- NOTE | 2018-05-25 09:31 | CT ---
CT cervical spine History: Head trauma. Comparison: None available. Technique: Multiple contiguous axial images were performed through the cervical spine without the use of intravenous contrast. Subsequently, sagittal and coronal reformatted images were obtained. This CT exam was performed using one or more of the following dose reduction techniques: Automated exposure control, adjustment of the mA and/or kV according to patient size, and/or use of iterative reconstruction technique. Findings: Straightening of the normal cervical lordosis. Mild loss of height of the inferior endplates of the C4, C5, and C6 vertebral bodies. Posterior disc osteophyte complexes at the C5-6 and C6-7 levels. Anterior osteophytosis at the C5-6 and C6-7 levels. Multilevel uncovertebral joint and facet hypertrophy. No significant prevertebral soft tissue swelling. Limited evaluation for disc pathology given CT examination. This may be better evaluated with MRI if clinically indicated. No evidence for acute displaced fracture. Mild indentation on the anterior thecal sac/cord in the lower cervical spine. Again this would be better evaluated with MRI if clinically indicated. Multilevel neuroforaminal narrowing within the mid and lower cervical spine. Scattered mucosal thickening of the maxillary sinuses. 1 centimeter nodule within the left lobe of the thyroid. Impression: No evidence for acute displaced fracture. Degenerative changes as above. Correlation with MRI may be helpful for further evaluation if clinically indicated. 1 centimeter left thyroid nodule. Correlation with thyroid ultrasound would be helpful for further evaluation if clinically indicated. These findings were preliminarily reported at 11:51 p.m. on 05/24/[address] Grady Zendejas from [facility]. Clinical correlation.
== END 2018-05-25 05:30 | disposition home or self-care (01) ==
LOC: C.ER 21:14
DX: F10.129 Alcohol abuse with intoxication, unspecified (principal); Y90.9 Presence of alcohol in blood, level not specified; S01.81XA Laceration without foreign body of other part of head, initial encounter; X58.XXXA Exposure to other specified factors, initial encounter; E04.1 Nontoxic single thyroid nodule

== ENCOUNTER 2018-05-25 08:14 | Emergency (ER) | payer OTHER ==
[2018-05-25 08:15] VITALS: BMI 26.5
[2018-05-25] MEDS ORDERED: Thiamine 100 mg/ml Inj IV ONE (09:02)
[2018-05-25] MEDS ORDERED: Thiamine 100 mg/ml Inj ONE (09:24)
[2018-05-25] MEDS ORDERED: Sodium Chloride 0.9% 1,000 ML ONE (09:24)
[2018-05-25] MEDS ORDERED: Sodium Chloride 0.9% 1,000 ML IV ONE (09:27)
[2018-05-25 09:30] LABS: ALB/GLOB RATIO 1.3 (1.0-2.1); ALBUMIN 4.6 g/dL (3.5-5.0); ALT/SGPT 52 U/L (21-72); AST/SGOT 73 U/L (17-59); BLOOD UREA NITROGEN 16 mg/dL (9-20); CALCIUM 8.2 mg/dl (8.6-10.4); GFR NON-AFRICAN AMERICAN > 60; LIPASE 257 U/L (23-300)
--- NOTE | 2018-05-25 10:03 | RAD ---
Date of service: 05/25/2018 PROCEDURE: CHEST RADIOGRAPH, 1 VIEW HISTORY: SOB COMPARISON: Frontal chest radiograph 04/12/2018. FINDINGS: LUNGS: Inspiratory volume appears diminished however there is no acute infiltrate identified bilaterally. PLEURA: No pneumothorax or pleural fluid seen. CARDIOVASCULAR: No pulmonary vascular congestion. Cardiac silhouette appears more prominent although this could be a function of technique. OSSEOUS STRUCTURES: No significant abnormalities. VISUALIZED UPPER ABDOMEN: Normal. OTHER FINDINGS: None. IMPRESSION: No acute infiltrate bilaterally, pneumothorax or pleural effusion. Cardiac silhouette appears somewhat prominent in the interval. This could be a function of frontal technique. Clinically correlate further. No pulmonary vascular congestion.
--- NOTE | 2018-05-25 10:04 | RAD ---
Date of service: 05/25/2018 PROCEDURE: Left Knee Radiographs. HISTORY: Pain. COMPARISON: None. FINDINGS: BONES: No acute fracture or destructive bony lesion identified. JOINTS: No subluxation or dislocation. No joint space narrowing or osteophyte development. No prominent cortical sclerosis. JOINT EFFUSION: A [id number] suprapatellar bursa effusion is identified. OTHER FINDINGS: None. IMPRESSION: Mild to moderate suprasellar bursa effusion. No acute fracture, subluxation or dislocation.
[2018-05-25 10:10] LABS: BASO % 0.8 % (0.0-2.0); EOS % 0.3 % (0.0-4.0); HEMOGLOBIN 11.4 g/dL (12.0-18.0); LYMPH # 1.4 K/uL (1.0-4.3); MEAN CELL VOLUME 90.6 fL (80.0-94.0); MEAN CORPUSCULAR HEMOGLOBIN 30.7 pg (27.0-31.0); MEAN CORPUSCULAR HGB CONC 33.9 g/dL (33.0-37.0); MEAN PLATELET VOLUME 6.2 fL (7.2-11.7); MONO # 0.3 K/uL (0.0-0.8); MONO % 5.7 % (0.0-10.0); NEUT # 3.3 K/uL (1.8-7.0); NEUT % 65.2 % (50.0-75.0); RBC 3.72 Mil/uL (4.40-5.90); RED CELL DISTRIBUTION WIDTH 16.6 % (11.5-14.5); WHITE BLOOD COUNT 5.1 K/uL (4.8-10.8)
--- NOTE | 2018-05-25 11:47 | C.PDOC ---
History Of Present Illness 53 y/o male brought to ED by bystanders after seen at [facility] in an acute intoxication stage. At ED patient c/o left knee pain and chest wall pain secondary to fall yesterday. Patient was seen at ED yesterday for public intoxication and sustaining laceration to right eye, laceration was repaired and patient had CT scan of head with normal findings. Patient denies loc, sob, nausea, vomiting or any other complaints at this time. Time Seen by Provider: 05/25/18 08:28 Chief Complaint (Nursing): Substance Abuse History Per: Patient History/Exam Limitations: no limitations Onset/Duration Of Symptoms: Days Current Symptoms Are (Timing): Still Present Suicide/Self Injury Attempted (Context): None Modifying Factor(s): Alcohol Past Medical History Reviewed: Historical Data, Nursing Documentation, Vital Signs Vital Signs: Last Vital Signs Temp 97.5 F L 05/25/18 08:34 Pulse 69 05/25/18 10:37 Resp 20 05/25/18 10:36 BP 132/88 05/25/18 10:36 Pulse Ox 97 05/25/18 11:47 - Medical History PMH: Bipolar Disorder, Fractures (left wrist 4 days ago cast intact), HTN, Paranoia, Seizures Surgical History: Hernia Repair - [facility] Procedures DETOXIFICATION SERVICES FOR SUBSTANCE ABUSE TREATMENT (04/14/18) GROUP TELECOMMUNICATIONS ENGINEER FOR SUBSTANCE ABUSE TREATMENT, PSYCHOEDUCATION (04/14/18) GROUP TELECOMMUNICATIONS ENGINEER FOR SUBSTANCE ABUSE, COGNITIVE BEHAVIORAL (04/14/18) GROUP PSYCHOTHERAPY (04/14/18) INDIV PSYCHOTHERAPY FOR SUBSTANCE ABUSE TREATMENT, SUPPORT (04/14/18) INDIV PSYCHOTHERAPY FOR SUBSTANCE ABUSE, COGNITIV BEHAVIORAL (04/14/18) INDIV PSYCHOTHERAPY FOR SUBSTANCE ABUSE, PSYCHOEDUCATION (04/14/18) INDIVIDUAL PSYCHOTHERAPY, COGNITIVE-BEHAVIORAL (04/14/18) INDIVIDUAL PSYCHOTHERAPY, SUPPORTIVE (04/14/18) MEDICATION MANAGEMENT (01/27/18) Family History: States: No Known Family Hx - Social History Hx Tobacco Use: No (former smoker) Hx Alcohol Use: Yes (alcohol dependent x 20 yrs.) Hx Substance Use: No - Immunization History Hx Tetanus Toxoid Vaccination: No Hx Influenza Vaccination: No Hx Pneumococcal Vaccination: No Review Of Systems Except As Marked, All Systems Reviewed And Found Negative. Cardiovascular: Positive for: Chest Pain Musculoskeletal: Positive for: Leg Pain Physical Exam - Physical Exam Appears: Non-toxic, No Acute Distress Skin: Warm, Dry, No Rash Head: No Swelling, Laceration (to right eye, repaired and healing well) Eye(s): bilateral: PERRL, EOMI Oral Mucosa: Moist Neck: Supple Chest: Tenderness (chest wall), No Ecchymosis Cardiovascular: Rhythm Regular Respiratory: Normal Breath Sounds, No Rales, No Rhonchi, No Wheezing Gastrointestinal/Abdominal: Soft, No Tenderness, No Guarding, No Rebound Extremity: Tenderness (left knee), Capillary Refill (<2 seconds), No Deformity, Swelling (mild to left knee) Neurological/Psych: Oriented x3, Normal Speech, Normal Motor, Normal Sensation ED Course And Treatment - Laboratory Results Result Diagrams: 05/25/18 10:05 05/25/18 09:14 ECG: Interpreted By Me, Viewed By Me ECG Rhythm: Sinus Rhythm (normal) Rate From EC (BPM) O2 Sat by Pulse Oximetry: 97 (RA) Pulse Ox Interpretation: Normal Medical Decision Making Medical Decision Making: Assessment: Chest wall pain, Left knee pain, Alcoholism Disposition Counseled Patient/Family Regarding: Studies Performed, Diagnosis, Need For Followup - Disposition Referrals: [facility] [Outside] Disposition: HOME/ ROUTINE Disposition Time: 11:46 Condition: STABLE Additional Instructions: follow up with medical clinic within 2 days call to make an appointment decrease your alcohol use return to ER if symptoms worsens or progress Instructions: Alcohol Use - When Is Drinking a Problem?, Knee Sprain (DC), Costochondritis (DC) Forms: [facility] ([place] Islander), General Discharge Instructions - Clinical Impression Clinical Impression: Contusion, Alcohol intoxication - Scribe Statement The provider has reviewed the documentation as recorded by the Oliverioibclifton Valencia All medical record entries made by the Oliverioibclifton were at my direction and personally dictated by me. I have reviewed the chart and agree that the record accurately reflects my personal performance of the history, physical exam, medical decision making, and the department course for this patient. I have also personally directed, reviewed, and agree with the discharge instructions and disposition.
[2018-05-25 12:14] VITALS: TEMP 98.7
[2018-05-25 12:36] VITALS: BP 146/89; PULSE 81; RESP 20; O2SAT 100
--- NOTE | 2018-05-26 20:19 | CARD ---
APPROVED REPORT Date of service: 05/25/2018 EKG Measurement Heart [id number] <Conclusion> Normal sinus rhythm Normal ECG
== END 2018-05-25 13:15 | disposition home or self-care (01) ==
LOC: C.ER 08:14
DX: F10.129 Alcohol abuse with intoxication, unspecified (principal); T14.8XXA Other injury of unspecified body region, initial encounter; W19.XXXA Unspecified fall, initial encounter; I10 Essential (primary) hypertension; Z87.891 Personal history of nicotine dependence
CPT/HCPCS: 36415; 71045; 73562; 80053; 80320; 82550; 82948; 83690; 83735; 84484; 85025; 93005; 96361; 96374; 99285; J3411; J7030

== ENCOUNTER 2018-05-29 19:06 | Inpatient (IN) | payer OTHER ==
[2018-05-29 19:06] VITALS: BMI 26.5
--- NOTE | 2018-05-29 20:04 | C.PDOC ---
History Of Present Illness 53 year old male presents to the ER with complaints of feeling anxious, depressed, and having paranoid thoughts that people are out to get him. Patient also states he feels lightheaded and felt his heart racing today. Patient denies suicidal/homicidal ideations. He reports having a head injury on , states he was seen here at [facility]. Time Seen by Provider: 05/29/18 19:31 Chief Complaint (Nursing): Psychiatric Evaluation History Per: Patient History/Exam Limitations: no limitations Onset/Duration Of Symptoms: Days Current Symptoms Are (Timing): Still Present Suicide/Self Injury Attempted (Context): None Associated Symptoms: Anxiety, Depression, Paranoia, Other (Lightheaded, Heart racing) Involuntary Hold By: None Recent travel outside of the [place]: No Past Medical History Reviewed: Historical Data, Nursing Documentation, Vital Signs Vital Signs: Last Vital Signs Temp 97.5 F L 06/03/18 06:51 Pulse 65 06/03/18 06:51 Resp 18 06/03/18 06:51 BP 138/88 06/03/18 06:51 Pulse Ox 100 06/03/18 13:47 - Medical History PMH: Bipolar Disorder, Fractures (left wrist 4 days ago cast intact), HTN, Paranoia, Seizures Surgical History: Hernia Repair - [facility] DETOXIFICATION SERVICES FOR SUBSTANCE ABUSE TREATMENT (04/14/18) GROUP ROPE SILICA MACHINE OPERATOR FOR SUBSTANCE ABUSE TREATMENT, PSYCHOEDUCATION (04/14/18) GROUP ROPE SILICA MACHINE OPERATOR FOR SUBSTANCE ABUSE, COGNITIVE BEHAVIORAL (04/14/18) GROUP PSYCHOTHERAPY (04/14/18) INDIV PSYCHOTHERAPY FOR SUBSTANCE ABUSE TREATMENT, SUPPORT (04/14/18) INDIV PSYCHOTHERAPY FOR SUBSTANCE ABUSE, COGNITIV BEHAVIORAL (04/14/18) INDIV PSYCHOTHERAPY FOR SUBSTANCE ABUSE, PSYCHOEDUCATION (04/14/18) INDIVIDUAL PSYCHOTHERAPY, COGNITIVE-BEHAVIORAL (04/14/18) INDIVIDUAL PSYCHOTHERAPY, SUPPORTIVE (04/14/18) MEDICATION MANAGEMENT (01/27/18) Family History: States: No Known Family Hx - Social History Hx Tobacco Use: No (former smoker) Hx Alcohol Use: Yes (alcohol dependent x 20 yrs.) Hx Substance Use: No - Immunization History Hx Tetanus Toxoid Vaccination: No Hx Influenza Vaccination: No Hx Pneumococcal Vaccination: No Review Of Systems Constitutional: Negative for: Fever, Chills Cardiovascular: Positive for: Light Headedness, Other (Heart racing). Negative for: Chest Pain Respiratory: Negative for: Cough, Shortness of Breath Gastrointestinal: Negative for: Nausea, Vomiting, Abdominal Pain, Diarrhea Skin: Negative for: Rash Neurological: Positive for: Dizziness (lightheaded). Negative for: Weakness, Numbness, Altered Mental Status, Headache Psych: Positive for: Anxiety, Depression, Other (Paranoid) Physical Exam - Physical Exam Appears: Well, Non-toxic, No Acute Distress, Other (Bizarre/flat affect) Skin: Normal Color, Warm, Dry, No Rash, Other (lateral to right eyebrow/eye, approx 3cm healing wound ) Head: Atraumatic, Normacephalic Eye(s): bilateral: Normal Inspection, PERRL, EOMI Oral Mucosa: Moist Neck: Normal, No Midline Cervical Tenderness, No Paracervical Tenderness, No Step Off Deformity, Supple Chest: Symmetrical, No Tenderness Cardiovascular: Rhythm Regular Respiratory: Normal Breath Sounds, No Rales, No Rhonchi, No Wheezing Gastrointestinal/Abdominal: Normal Exam, Bowel Sounds, Soft, No Tenderness Extremity: Normal ROM, No Tenderness, No Deformity Extremity: Bilateral: Atraumatic Neurological/Psych: Oriented x3, Normal Speech, Normal Cognition ED Course And Treatment - Laboratory Results Result Diagrams: 05/29/18 21:14 05/31/18 07:28 ECG: Interpreted By Me, Viewed By Mo ECG Rhythm: Sinus Rhythm ECG Interpretation: Normal Interpretation Of ECG: Left axis deviation, no acute ST/T wave changes. Rate From EC (bpm) O2 Sat by Pulse Oximetry: 100 (room air) Pulse Ox Interpretation: Normal - CT Scan/US ct head Other Rad Studies (CT/US): Read By Radiologist, Radiology Report Reviewed CT/US Interpretation: Name: ALISA WAKEFIELD Age: 53Years M Date: 05/29/2018. Requesting Physician: EDU SUAZO : 1965. [employer] Procedure Ordered As Accession Number of Images. CT HEAD WO CT HEAD W O CONTRAST [id number]. Provided Clinical History: dizziness, head injury. CONFIDENTIALITY STATEMENT. This report is intended only for the use of the referring physician, and only in accordance with law, If you received this in error, call [phone]. Page 1 of 1. EXAM: CT Head Without Intravenous Contrast. CLINICAL HISTORY: 53 years old, male; Signs and symptoms ; Dizziness; Additional info: Dizziness, head injury. TECHNIQUE: Axial computed tomography images of the head/brain without intravenous contrast. All CT scans at. this facility use at least one of these dose optimization techniques: automated exposure control; mA. and/or kV adjustment per patient size (includes targeted exams where dose is matched to clinical. indication); or iterative reconstruction. Coronal and sagittal reformatted images were created and reviewed. COMPARISON: CT - HEAD W/O CONTRAST 05/24/2018 11:05 PM. FINDINGS: Brain: Unremarkable. No hemorrhage. No significant white matter disease. No edema. Normal. bustos white matter interfaces are present. Ventricles: Unremarkable. No ventriculomegaly. Bones/joints: Unremarkable. No acute fracture. Soft tissues: Unremarkable. Sinuses: Unremarkable as visualized. No acute sinusitis. Mastoid air cells: Unremarkable as visualized. No mastoid effusion. IMPRESSION: Normal head/brain CT. Thank you for allowing us to participate in the care of your patient. Dictated and Authenticated by: Curtis Le MD. 05/29/2018 9:59 PM Eastern Time ([place] & [place]) Progress Note: Blood work, CT head, EKG, UA, UDS ordered and reviewed. Patient mildly tremulous, PO Librium given for ETOH withdrawal. 11:30pm - Patient medically cleared. 12:30am- Patient accepted by Dr. Ferro for psychiatric admission. Disposition - Disposition Disposition: HOSPITALIZED Disposition Time: 00:36 Condition: STABLE - Clinical Impression Clinical Impression: Schizoaffective disorder - Scribe Statement The provider has reviewed the documentation as recorded by the Scribclifton James All medical record entries made by the Scribe were at my direction and personally dictated by me. I have reviewed the chart and agree that the record accurately reflects my personal performance of the history, physical exam, medical decision making, and the department course for this patient. I have also personally directed, reviewed, and agree with the discharge instructions and disposition. Decision To Admit - Pt Status Changed To: Hospital Disposition Of: Inpatient - Admit Certification Admit to Inpatient:: After my assessment, the patient will require hospitalization for at least two midnights. This is because of the severity of symptoms shown, intensity of services needed, and/or the medical risk in this patient being treated as an outpatient. - InPatient: Physician Admission Certification: I certify that this patient requires 2 or more midnights of care for the following reason:: see notes - . Bed Request Type: Psychiatry Admitting Physician: Merna Ferro Patient Diagnosis: Schizoaffective disorder
[2018-05-29 20:41] LABS: URINE BILIRUBIN NEGATIVE (NEGATIVE); URINE BLOOD NEGATIVE (NEGATIVE); URINE CLARITY Clear (Clear); URINE COLOR Yellow (YELLOW); URINE GLUCOSE (UA) 3+ mg/dL (Normal); URINE LEUKOCYTE ESTERASE NEG Leu/uL (Negative); URINE PROTEIN 1+ mg/dL (NEGATIVE)
[2018-05-29 20:56] LABS: BARBITURATES, UR NEGATIVE (NEGATIVE); BENZODIAZEPINES, UR NEGATIVE (NEGATIVE); OPIATES, UR NEGATIVE (NEGATIVE); PHENCYCLIDINE, UR NEGATIVE (NEGATIVE)
[2018-05-29 21:05] LABS: ALB/GLOB RATIO 1.2 (1.0-2.1); ALBUMIN 5.4 g/dL (3.5-5.0); ALT/SGPT 33 U/L (21-72); AST/SGOT 124 U/L (17-59); BLOOD UREA NITROGEN 11 mg/dL (9-20); CALCIUM 9.7 mg/dl (8.6-10.4); GFR NON-AFRICAN AMERICAN > 60
[2018-05-29 21:19] LABS: BASO % 0.7 % (0.0-2.0); EOS % 1.1 % (0.0-4.0); HEMOGLOBIN 12.9 g/dL (12.0-18.0); LYMPH # 1.7 K/uL (1.0-4.3); LYMPH % 38.8 % (20.0-40.0); MEAN CELL VOLUME 88.9 fL (80.0-94.0); MEAN CORPUSCULAR HEMOGLOBIN 30.6 pg (27.0-31.0); MEAN CORPUSCULAR HGB CONC 34.5 g/dL (33.0-37.0); MEAN PLATELET VOLUME 6.7 fL (7.2-11.7); MONO # 0.3 K/uL (0.0-0.8); MONO % 6.7 % (0.0-10.0); NEUT # 2.3 K/uL (1.8-7.0); NEUT % 52.7 % (50.0-75.0); NRBC % 0.1 % (0.0-2.0); RBC 4.2 Mil/uL (4.40-5.90); RED CELL DISTRIBUTION WIDTH 16.1 % (11.5-14.5); WHITE BLOOD COUNT 4.4 K/uL (4.8-10.8)
--- NOTE | 2018-05-30 03:16 | PCM.BM ---
<Jose Julian - Last Filed: 05/30/18 03:14> Treatment Plan Problems - Problems identified on initial assessmt Depression Date Initiated: 05/30/18 Time Initiated: 01:30 Assessment reference: NA Status: Active Anxiety Date Initiated: 05/30/18 Time Initiated: 01:30 Status: Active Treatment assets and liabiliti Patient Assests: cooperative, ADL independent, negotiates basic needs, cognitively intact Patient Liabilities: substance abuse (ETOH), medical problems (HTN, Hx seizure) - Milieu Protocol Maintain good personal hygiene: daily Encourage regular showers, daily Remind patient to perform daily oral care, every shift Assist patient to perform ADL's Conduct patient checks and document Observation sheet: Q15 minutes Maintain personal safety: every shift Educate patient to report safety concerns to staff, every shift Monitor environment for contraband/sharps Medication safety: Monitor for expected outcome, potential side effects: every shift, Assess barriers to learning: every shift, Assess readiness for medication education: every shift <Merna Ferro - Last Filed: 05/30/18 09:13> - Diagnosis (1) Alcohol use disorder, severe, dependence Status: Acute Interventions: 05/30/18 09:13 * Assess 7x/week regarding severity of withdrawal * Educate regarding risks, benefits, side effects and alternatives of medications * Use Motivational Interviewing for abstinence * Use CBT for relapse prevention * Medication management for withdrawal symptoms * Encourage medication assisted treatment * (2) Depressive disorder Status: Acute Interventions: 05/30/18 09:14 * Assess/adjust medications daily and /or as needed * See patient on an individual basis 7x/week to assess symptoms of depression * Monitor for side effects & effectiveness of medications * <Maya Grider - Last Filed: 06/01/18 12:29> Family Contact Family involvement: Patient does not wish Family/SO involvement Family contact: Patient declines to allow family contact at present - Goals for Treatment Patient goals for treatment: "I want to go to an outpatient program." Discharge/Continuing Care - Education Needs Education Needs: Patient Medication, Patient Diagnosis/Disease Process, Patient Coping Skills, Patient Placement options, Patient Community resources - Discharge Discharge Criteria: Free of Suicidal thoughts, Normal sleep pattern, Ability to care for self, No longer exhibiting s/s of withdrawal, Reduction of target symptoms Discharge to:: Nursing Home - Treatment Team Participation Discussed with Family/SO: No Was Patient/Family/SO present at Treatment Team Meeting: Yes
[2018-05-30] MEDS: Multiple Vitamins Tab PO SCH (09:12)
--- NOTE | 2018-05-30 09:13 | PCM.PSYCH ---
Initial Psychiatric Evaluation - Initial Psychiatric Evaluation Type of Admission: Voluntary Legal Status: Capacity Chief Complaint (in patient's own words): "I'm depressed" History of Present Illness and Precipitating Events: The pt is seen, chart reviewed, case discussed. He is known from many previous admissions. He is known from previous consults and admissions. He is a poor historian. 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 He was off of his meds more than a week and also relapsed on alcohol again. He minimizes his use and says he only drinks "few beers." He often goes into DTs but today he was AOx3 and calm. However, due to his wdw sxs he was started on librium taper in ER already. The patient was previously hospitalized at [facility] in [place], for mental health issues. The patient was also hospitalized at [facility] few times. He is depressed and paranoid, hearing voices occasionally. The patient was prescribed Risperdal, Seroquel, Zoloft and Gabapentin in the past. The patient denies any other substance use. He admits to not following with any psych clinic but was taking prescribed meds until recently. He claims he went to [facility] but not to [facility] yet Past psych hx: 3-4 admissions. No suicide attempt, drinks more than 20 years, denies drugs/cigarettes Medical hx: GI issues, fractured wrist (better now), has a shiner on face (xr was done) Family Hx: Denied Current Medications: Active Medications Generic Name Dose Route Start Last Admin Trade Name Woody PRN Reason Stop Dose Admin Chlordiazepoxide 25 mg 05/30/18 06:00 05/30/18 06:32 Librium PO 06/03/18 05:59 25 mg Q6 ANNETTE Administration Taper Chlordiazepoxide 25 mg 05/30/18 08:30 Librium PO Q4H PRN Alcohol Withdrawal Clonidine HCl 0.1 mg 05/30/18 08:30 Catapres PO Q4H PRN Symptoms of alcohol withdrawl Escitalopram Oxalate 5 mg 05/30/18 10:00 Lexapro PO DAILY ANNETTE Folic Acid 1 mg 05/30/18 10:00 Folic Acid PO DAILY ANNETTE Mirtazapine 15 mg 05/30/18 22:00 Remeron PO HS ANNETTE Multivitamins 1 tab 05/30/18 10:00 Hexavitamin PO DAILY ANNETTE Risperidone 2 mg 05/30/18 18:00 Risperdal Tab PO QPM ANNETTE Thiamine HCl 100 mg 05/30/18 10:00 Vitamin B1 Tab PO DAILY ANNETTE Past Psychiatric History - Past Psychiatric History Previous Treatment History: Inpatient Pertinent Medical Hx (Current Medical&Sleep Prob, Allergies): Allergies Allergy/AdvReac Type Severity Reaction Status Date / Time No Known Allergies Allergy Verified 05/29/18 19:31 Risperidone [Risperdal M-TAB] 1 mg PO BID 04/22/18 traZODone [trazodone Hydrochloride] 100 mg PO DAILY 04/22/18 Celexa 04/28/18 Review of Systems - Neurological Neurological: UNREMARKABLE - Psychiatric Psychiatric: Abnormal Sleep Pattern, Anhedonia, Anxiety, Change in Appetite, Depression, Difficulty Concentrating. absent: Hallucinations, Homicidal Ideation, Suicidal Ideation Mental Status Examination - Personal Presentation Personal Presentation: Looks older than stated age - Affect Affect: Constricted - Motor Activity Motor Activity: Calm - Reliability in Providing Information Reliability in Providing Information: Good - Speech Speech: Organized - Mood Mood: Depressed, Anxious - Formal Thought Process Formal Thought Process: No Impairment - Cognitive Functions Orientation: Person, Place, Situation, Time Sensorium: Alert Attention/Concentration: Easily distracted Abstract Thinking: Salters Estimate of Intelligence: Below average Judgement: Intact, as evidence by: Insight regarding need for hospitalization Memory: Recent intact, as evidence by: Ability to recall events of the day, Remote intact, as evidenced by: Ability to recall historical events - Risk Risk: Diminished functioning - Strength & Assets Inventory Strength & Assets Inventory: Cooperative - Limitations Limitations: Other DSM 5 DX - DSM 5 DSM 5 Diagnosis: Schizoaffective d/o - depressed Alcohol withdrawal Alcohol use d/o - severe - Recommended/Plan of Treatment Treatment Recommendations and Plan of Treatment: Ativan detox started already As needed medications Gabapentin for augmentation if needed All risks, benefits and alternatives of medications, including no medications, discussed and the patient understood and agreed. Supportive therapy and psychoeducation [place] for abstinence Encourage MAT (antabuse, naltrexone), rehab or IOP Attend self-help groups as well Risperdal for psychosis Lexapro for depression CBT and support XR for chest pain 34 min Projected ELOS: 6 days Prognosis: good w good after care - Smoking Cessation Smoking Cessation Initiated: Yes
--- NOTE | 2018-05-30 10:41 | CT ---
Date of service: 05/29/2018 PROCEDURE: CT HEAD WITHOUT CONTRAST. HISTORY: dizziness, head injury COMPARISON: Comparison made with prior CT scan brain 05/24/2018 TECHNIQUE: Axial computed tomography images were obtained through the head/brain without intravenous contrast. Radiation dose: Total exam DLP = 1098.58 mGy-cm. This CT exam was performed using one or more of the following dose reduction techniques: Automated exposure control, adjustment of the mA and/or kV according to patient size, and/or use of iterative reconstruction technique. FINDINGS: HEMORRHAGE: No intracranial hemorrhage. BRAIN: Suspect minimal chronic periventricular white matter ischemic changes. Moderate generalized volume loss. VENTRICLES: No obstructive hydrocephalus. CALVARIUM: There are no acute calvarial fractures. PARANASAL SINUSES: Unremarkable as visualized. No significant inflammatory changes. MASTOID AIR CELLS: Unremarkable as visualized. No inflammatory changes. OTHER FINDINGS: None. IMPRESSION: No acute intracranial hemorrhage. Suspect minor chronic periventricular white matter ischemic changes. Moderate generalized volume loss.
[2018-05-30] MEDS: Pantoprazole 20 mg EC Tab PO SCH (11:52)
--- NOTE | 2018-05-30 13:46 | RAD ---
Date of service: 05/30/2018 HISTORY: Alcohol patient, has chest tightness on breathing COMPARISON: Comparison chest 05/25/2018 TECHNIQUE: Chest PA and lateral FINDINGS: LUNGS: Mild bibasilar atelectasis left greater than right PLEURA: No significant pleural effusion identified. No pneumothorax apparent. CARDIOVASCULAR: Normal. OSSEOUS STRUCTURES: No significant abnormalities. VISUALIZED UPPER ABDOMEN: Normal. OTHER FINDINGS: None. IMPRESSION: Mild bibasilar atelectasis left greater than right
[2018-05-31 08:45] LABS: ALB/GLOB RATIO 1.3 (1.0-2.1); ALBUMIN 4.5 g/dL (3.5-5.0); ALT/SGPT 43 U/L (21-72); AST/SGOT 59 U/L (17-59); BLOOD UREA NITROGEN 13 mg/dL (9-20); CALCIUM 9.8 mg/dl (8.6-10.4); GFR NON-AFRICAN AMERICAN > 60; HDL CHOLESTEROL 83 mg/dL (30-70); LIPASE 333 U/L (23-300)
[2018-05-31 08:55] LABS: LDL CHOLESTEROL 90 mg/dL (0-129)
[2018-05-31] MEDS: Pantoprazole 20 mg EC Tab PO SCH (09:36)
[2018-05-31] MEDS: Multiple Vitamins Tab PO SCH (09:36)
[2018-06-01 06:47] VITALS: RESP 18
[2018-06-01] MEDS: Pantoprazole 20 mg EC Tab PO SCH (10:23)
[2018-06-01] MEDS: Multiple Vitamins Tab PO SCH (10:27)
--- NOTE | 2018-06-01 16:21 | CARD ---
APPROVED REPORT Date of service: 05/29/2018 EKG Measurement Heart [id number] ID [id number] <Conclusion> Normal sinus rhythm Minimal voltage criteria for LVH, may be normal variant Borderline ECG
[2018-06-02] MEDS: Pantoprazole 20 mg EC Tab PO SCH (09:49)
[2018-06-02] MEDS: Multiple Vitamins Tab PO SCH (09:49)
--- NOTE | 2018-06-02 17:26 | PCM.PYCHPN ---
Psychiatric Progress Note - Psychiatric Progress Note Patient seen today, length of contact: 16 Patient Chief Complaint: I feel better Problems Identified/Issues Discussed: PGY-1 Psychiatric Progress Note for Dr. Ferro. Patient was seen, chart reviewed and case discussed w staff. Patient is compliant with medication with no report of side effects. Patient states he is feeling better and tremors have resolved. Denies suicidal ideation, homicidal ideation, auditory and visual hallucinations. Supportive therapy and psychoeducation given. Aftercare discussed. Medication Change: Yes (taper) Medical Record Reviewed: Yes Mental Status Examination - Cognitive Function Orientation: Person, Place, Situation, Time Attention: Poor Concentration: Poor Association: WNL Fund of Knowledge: WNL - Mood Mood: Depressed - Affect Affect: Constricted - Speech Speech: Appropriate - Formal Thought Process Formal Thought Process: No Impairment - Suicidal Ideation Suicidal Ideation: No - Homicidal Ideation Homicidal Ideation: No Goal/Treatment Plan - Goal/Treatment Plan Need for Continued Stay: Discharge may exacerbated symptoms Progress Toward Problem(s) and Goals/Treatment Plan: Librium Taper Lexapro 10mg daily Mirtazapine 15mg HS Risperdal for psychosis As needed medications Gabapentin for augmentation if needed All risks, benefits and alternatives of medications, including no medications, discussed and the patient understood and agreed. Supportive therapy and psychoeducation [place] for abstinence Encourage MAT (antabuse, naltrexone), rehab or IOP Attend self-help groups as well CBT and support XR for chest pain Estimated Date of D/C: 06/06/18
[2018-06-03 06:51] VITALS: TEMP 97.5
[2018-06-03] MEDS: Multiple Vitamins Tab PO SCH (10:02)
[2018-06-03] MEDS: Pantoprazole 20 mg EC Tab PO SCH (10:02)
--- NOTE | 2018-06-03 11:47 | PCM.PYCHPN ---
Psychiatric Progress Note - Psychiatric Progress Note Patient seen today, length of contact: 17 min Patient Chief Complaint: "I'm still depressed" Problems Identified/Issues Discussed: The pt is seen, chart reviewed, case discussed with staff. The pt is compliant with medications and reports no side-effects. Symptoms are improving but needs more time to stabilize. After care discussed, support and psychoeducation given. Medication Change: Yes (taper) Medical Record Reviewed: Yes Mental Status Examination - Cognitive Function Orientation: Person, Place, Situation, Time Memory: Impaired Attention: Poor Concentration: Poor Association: WNL Fund of Knowledge: WNL - Mood Mood: Depressed - Affect Affect: Constricted - Speech Speech: Appropriate - Formal Thought Process Formal Thought Process: No Impairment - Suicidal Ideation Suicidal Ideation: No - Homicidal Ideation Homicidal Ideation: No Goal/Treatment Plan - Goal/Treatment Plan Need for Continued Stay: Severe depression anxiety, Discharge may exacerbated symptoms, Severe functional impairment Progress Toward Problem(s) and Goals/Treatment Plan: Ativan detox started already As needed medications Gabapentin for augmentation if needed All risks, benefits and alternatives of medications, including no medications, discussed and the patient understood and agreed. Supportive therapy and psychoeducation [place] for abstinence Encourage MAT (antabuse, naltrexone), rehab or IOP Attend self-help groups as well Risperdal for psychosis Lexapro for depression CBT and support Estimated Date of D/C: 06/06/18
--- NOTE | 2018-06-03 11:49 | PCM.PYCHPN ---
Psychiatric Progress Note - Psychiatric Progress Note Patient seen today, length of contact: 15 min Patient Chief Complaint: "I'm tired" Problems Identified/Issues Discussed: The pt is seen, chart reviewed, case discussed with staff. Support given, CBT and [place] used briefly No new symptoms reported, improving slowly and needs more time No SEs from medications, risks discussed. After care discussed - he is not sure but rehab is very much needed. Worst case he will go to [facility] Medication Change: Yes (taper) Medical Record Reviewed: Yes Mental Status Examination - Cognitive Function Orientation: Person, Place, Situation, Time Memory: Impaired Attention: Poor Concentration: Poor Association: WNL Fund of Knowledge: WNL - Mood Mood: Depressed - Affect Affect: Constricted - Speech Speech: Appropriate - Formal Thought Process Formal Thought Process: No Impairment - Suicidal Ideation Suicidal Ideation: No - Homicidal Ideation Homicidal Ideation: No Goal/Treatment Plan - Goal/Treatment Plan Need for Continued Stay: Severe depression anxiety, Discharge may exacerbated symptoms, Severe functional impairment Progress Toward Problem(s) and Goals/Treatment Plan: Ativan detox started already As needed medications Gabapentin for augmentation if needed All risks, benefits and alternatives of medications, including no medications, discussed and the patient understood and agreed. Supportive therapy and psychoeducation [place] for abstinence Encourage MAT (antabuse, naltrexone), rehab or IOP Attend self-help groups as well Risperdal for psychosis Lexapro for depression CBT and support Estimated Date of D/C: 06/06/18
[2018-06-03 13:46] VITALS: O2SAT 100
[2018-06-03 16:25] VITALS: BP 114/79; PULSE 78
[2018-06-04] MEDS: Multiple Vitamins Tab PO SCH (09:18)
[2018-06-04] MEDS: Pantoprazole 20 mg EC Tab PO SCH (09:18)
--- NOTE | 2018-06-04 13:40 | PCM.PYCHPN ---
Psychiatric Progress Note - Psychiatric Progress Note Patient seen today, length of contact: 15 min Medication Change: Yes (taper) Medical Record Reviewed: Yes Mental Status Examination - Cognitive Function Orientation: Person, Place, Situation, Time Memory: Impaired Attention: Poor Concentration: Poor Association: WNL Fund of Knowledge: WNL - Mood Mood: Depressed - Affect Affect: Constricted - Speech Speech: Appropriate - Formal Thought Process Formal Thought Process: No Impairment - Suicidal Ideation Suicidal Ideation: No - Homicidal Ideation Homicidal Ideation: No Goal/Treatment Plan - Goal/Treatment Plan Need for Continued Stay: Severe depression anxiety, Discharge may exacerbated symptoms, Severe functional impairment Progress Toward Problem(s) and Goals/Treatment Plan: Schizoaffective d/o - depressed Alcohol withdrawal Alcohol use d/o - severe Ativan detox started already As needed medications Gabapentin for augmentation if needed All risks, benefits and alternatives of medications, including no medications, discussed and the patient understood and agreed. Supportive therapy and psychoeducation [place] for abstinence Encourage MAT (antabuse, naltrexone), rehab or IOP Attend self-help groups as well Risperdal for psychosis Lexapro for depression CBT and support XR for chest pain Estimated Date of D/C: 06/06/18
--- NOTE | 2018-06-04 13:43 | PCM.PYCHDC ---
Mental Status Examination - Mental Status Examination Orientation: Person, Place, Situation, Time Memory: Intact Mood: Neutral Affect: Constricted Speech: Soft Attention: WNL Concentration: WNL Association: WNL Fund of Knowledge: WNL Formal Thought Process: No Impairment Description of patient's judgement and insight: good, fair Psychotic Thoughts and Behaviors: denies any AVH Suicidal Ideation: No Current Homicidal Ideation?: No Discharge Summary - Discharge Note Reason for Hospitalization: The pt is seen, chart reviewed, case discussed. He is known from many previous admissions. He is known from previous consults and admissions. He is a poor historian. 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 He was off of his meds more than a week and also relapsed on alcohol again. He minimizes his use and says he only drinks "few beers." He often goes into DTs but today he was AOx3 and calm. However, due to his wdw sxs he was started on librium taper in ER already. The patient was previously hospitalized at [facility] in [place], for mental health issues. The patient was also hospitalized at [facility] few times. He is depressed and paranoid, hearing voices occasionally. The patient was prescribed Risperdal, Seroquel, Zoloft and Gabapentin in the past. The patient denies any other substance use. He admits to not following with any psych clinic but was taking prescribed meds until recently. He claims he went to [facility] but not to [facility] yet Past psych hx: 3-4 admissions. No suicide attempt, drinks more than 20 years, denies drugs/cigarettes Consultations:: List each consultation separately and include: 1. Reason for request. 2. Findings. 3. Follow-up Summary of Hospital Course include:: 1. Description of specific treatment plan utilized for patients during their course of treatmen. 2. Summarize the time- course for resolution of acute symptoms and/or regressed behaviors. 3. Describe issues identified and worked on during hospitalization. 4. Describe medication utilized. 5. Describe medical problems identified and treated. 6. Reassessment of suicide risk - Final Diagnosis (DSM 5) Condition upon Discharge: STABLE DSM 5: Schizoaffective d/o - depressed Alcohol withdrawal Alcohol use d/o - severe Disposition: HOME/ ROUTINE Follow-up Treatment Plan: Schizoaffective d/o - depressed Alcohol withdrawal Alcohol use d/o - severe Ativan detox started already As needed medications Gabapentin for augmentation if needed All risks, benefits and alternatives of medications, including no medications, discussed and the patient understood and agreed. Supportive therapy and psychoeducation [place] for abstinence Encourage MAT (antabuse, naltrexone), rehab or IOP Attend self-help groups as well Risperdal for psychosis Lexapro for depression CBT and support XR for chest pain Prescriptions/Medication Reconciliation: Escitalopram [Lexapro] 10 mg PO DAILY #30 tab Mirtazapine [Remeron] 15 mg PO HS #30 tab risperiDONE [RisperDAL Tab] 2 mg PO QPM #30 tab
== END 2018-06-04 22:04 | disposition home or self-care (01) | DRG 430 ==
LOC: C.ER 19:06 → C.5E 05-30 00:36
PROVIDERS: ADMIT Psychiatry & Neurology Psychiatry; ATTEND Psychiatry & Neurology Psychiatry
PROC: HZ2ZZZZ Detoxification Services for Substance Abuse Treatment (ICD-10-PCS; principal; 2018-05-30)
PROC: GZHZZZZ Group Psychotherapy (ICD-10-PCS; 2018-05-30)
PROC: HZ52ZZZ Individual Psychotherapy for Substance Abuse Treatment, Cognitive-Behavioral (ICD-10-PCS; 2018-05-30)
PROC: HZ59ZZZ Individual Psychotherapy for Substance Abuse Treatment, Supportive (ICD-10-PCS; 2018-05-30)
PROC: HZ56ZZZ Individual Psychotherapy for Substance Abuse Treatment, Psychoeducation (ICD-10-PCS; 2018-05-30)
PROC: HZ42ZZZ Group Counseling for Substance Abuse Treatment, Cognitive-Behavioral (ICD-10-PCS; 2018-05-30)
PROC: HZ46ZZZ Group Counseling for Substance Abuse Treatment, Psychoeducation (ICD-10-PCS; 2018-05-30)
PROC: GZ58ZZZ Individual Psychotherapy, Cognitive-Behavioral (ICD-10-PCS; 2018-05-30)
PROC: GZ56ZZZ Individual Psychotherapy, Supportive (ICD-10-PCS; 2018-05-30)
DX: F25.1 Schizoaffective disorder, depressive type (principal); F10.230 Alcohol dependence with withdrawal, uncomplicated; Y90.0 Blood alcohol level of less than 20 mg/100 ml; I10 Essential (primary) hypertension; Z87.891 Personal history of nicotine dependence; F31.9 Bipolar disorder, unspecified; F41.8 Other specified anxiety disorders; F29 Unspecified psychosis not due to a substance or known physiological condition; R07.9 Chest pain, unspecified; Z59.0 Homelessness

== ENCOUNTER 2018-06-11 05:09 | Emergency (ER) | payer SELFPAY ==
[2018-06-11 05:09] VITALS: BMI 26.5
[2018-06-11] MEDS ORDERED: Aspirin 325 mg EC Tablets PO STA (05:26)
--- NOTE | 2018-06-11 05:26 | C.PDOC ---
History Of Present Illness Patient presents to the ER with a complaint of reproducible right chest wall pain since yesterday. Denies trauma, cough, fever, chills, nausea, or vomiting. Time Seen by Provider: 06/11/18 05:26 Chief Complaint (Nursing): Chest Pain History Per: Patient History/Exam Limitations: no limitations Onset/Duration Of Symptoms: Days Current Symptoms Are (Timing): Still Present Severity: Moderate Pain Scale Rating Of: 4 Associated Symptoms: denies: Nausea, Dyspnea, Diaphoresis, Syncope Modifying Factors: None Exacerbating Factors: Other (Palpation) Alleviating Factors: None Recent travel outside of the [place]: No Past Medical History Reviewed: Historical Data, Nursing Documentation, Vital Signs Vital Signs: Last Vital Signs Temp 97.7 F 06/11/18 05:18 Pulse 70 06/11/18 06:29 Resp 18 06/11/18 06:29 BP 158/102 H 06/11/18 06:29 Pulse Ox 99 06/11/18 06:31 - Medical History PMH: Bipolar Disorder, Fractures (left wrist 4 days ago cast intact), HTN, Paranoia, Seizures Denies: Diabetes, Hepatitis, HIV, Chronic Kidney Disease, Sexually Transmitted Disease Surgical History: Hernia Repair - [facility] Procedures DETOXIFICATION SERVICES FOR SUBSTANCE ABUSE TREATMENT (05/30/18) GROUP ICE CREAM CHEF FOR SUBSTANCE ABUSE TREATMENT, PSYCHOEDUCATION (05/30/18) GROUP ICE CREAM CHEF FOR SUBSTANCE ABUSE, COGNITIVE BEHAVIORAL (05/30/18) GROUP PSYCHOTHERAPY (05/30/18) INDIV PSYCHOTHERAPY FOR SUBSTANCE ABUSE TREATMENT, SUPPORT (05/30/18) INDIV PSYCHOTHERAPY FOR SUBSTANCE ABUSE, COGNITIV BEHAVIORAL (05/30/18) INDIV PSYCHOTHERAPY FOR SUBSTANCE ABUSE, PSYCHOEDUCATION (05/30/18) INDIVIDUAL PSYCHOTHERAPY, COGNITIVE-BEHAVIORAL (05/30/18) INDIVIDUAL PSYCHOTHERAPY, SUPPORTIVE (05/30/18) MEDICATION MANAGEMENT (01/27/18) Family History: States: No Known Family Hx - Social History Hx Tobacco Use: No (former smoker) Hx Alcohol Use: Yes (alcohol dependent x 20 yrs.) Hx Substance Use: No - Immunization History Hx Tetanus Toxoid Vaccination: No Hx Influenza Vaccination: No Hx Pneumococcal Vaccination: No Review Of Systems Constitutional: Negative for: Fever, Chills Cardiovascular: Negative for: Palpitations Respiratory: Negative for: Cough, Shortness of Breath Gastrointestinal: Negative for: Nausea, Vomiting Musculoskeletal: Positive for: Other (Right sided chest wall pain) Physical Exam - Physical Exam Appears: Non-toxic Skin: Warm, Dry Head: Normacephalic Oral Mucosa: Moist Neck: Trachea Midline, Supple Chest: Symmetrical, Tenderness (Right sided on palpation) Cardiovascular: Rhythm Regular Respiratory: No Rales, No Rhonchi, No Wheezing Gastrointestinal/Abdominal: Soft, No Tenderness Neurological/Psych: Oriented x3 ED Course And Treatment - Laboratory Results Result Diagrams: 06/11/18 05:39 06/11/18 05:39 ECG: Interpreted By Me, Viewed By Me ECG Rhythm: Sinus Rhythm (74), Nonspecific Changes O2 Sat by Pulse Oximetry: 99 (Room air) Pulse Ox Interpretation: Normal - Radiology CXR: Interpreted by Me, Viewed By Me CXR Interpretation: No: Infiltrates, Fracture, Pnemothorax Progress Note: EKG, blood work, CXR, and urinalysis ordered. Aspirin administered. Disposition Counseled Patient/Family Regarding: Studies Performed, Diagnosis - Disposition Disposition Time: 05:26 Condition: FAIR Forms: [email or web address] (Turkmen) - Clinical Impression Clinical Impression: Pleuritic pain, Chest pain - Scribe Statement The provider has reviewed the documentation as recorded by the Scribe Matheus James All medical record entries made by the Scribe were at my direction and personally dictated by me. I have reviewed the chart and agree that the record accurately reflects my personal performance of the history, physical exam, medical decision making, and the department course for this patient. I have also personally directed, reviewed, and agree with the discharge instructions and disposition. Physician Patient Turnover Patient Signed Over To: Clayton Flores Handoff Comments: pending ct , re-eval and disposition
[2018-06-11] MEDS ORDERED: Aspirin 325 mg EC Tablets PO ONE (05:37)
[2018-06-11 05:58] LABS: BASO # 0.1 K/uL (0.0-0.2); BASO % 1.8 % (0.0-2.0); EOS # 0.1 K/uL (0.0-0.7); EOS % 1.7 % (0.0-4.0); HEMOGLOBIN 12.5 g/dL (12.0-18.0); LYMPH % 52.7 % (20.0-40.0); MEAN CELL VOLUME 88.4 fL (80.0-94.0); MEAN CORPUSCULAR HEMOGLOBIN 30.5 pg (27.0-31.0); MEAN CORPUSCULAR HGB CONC 34.5 g/dL (33.0-37.0); MEAN PLATELET VOLUME 7.5 fL (7.2-11.7); MONO # 0.3 K/uL (0.0-0.8); MONO % 5.9 % (0.0-10.0); NEUT # 2.1 K/uL (1.8-7.0); NEUT % 37.9 % (50.0-75.0); NRBC % 0.2 % (0.0-2.0); RBC 4.09 Mil/uL (4.40-5.90); RED CELL DISTRIBUTION WIDTH 16.5 % (11.5-14.5); WHITE BLOOD COUNT 5.6 K/uL (4.8-10.8)
[2018-06-11 05:59] LABS: PROTHROMBIN TIME 11.4 SECONDS (9.7-12.2)
[2018-06-11 06:22] LABS: ALB/GLOB RATIO 1.3 (1.0-2.1); ALBUMIN 4.3 g/dL (3.5-5.0); ALT/SGPT 85 U/L (21-72); AST/SGOT 94 U/L (17-59); BLOOD UREA NITROGEN 12 mg/dL (9-20); CALCIUM 8.7 mg/dl (8.6-10.4); GFR NON-AFRICAN AMERICAN > 60; LIPASE 172 U/L (23-300)
[2018-06-11 06:31] VITALS: RESP 18
[2018-06-11 06:32] VITALS: O2SAT 99
[2018-06-11 07:22] LABS: URINE BILIRUBIN NEGATIVE (NEGATIVE); URINE BLOOD NEGATIVE (NEGATIVE); URINE CLARITY Clear (Clear); URINE COLOR Yellow (YELLOW); URINE GLUCOSE (UA) NORMAL (Normal); URINE LEUKOCYTE ESTERASE NEG Leu/uL (Negative); URINE PROTEIN NEGATIVE (NEGATIVE)
[2018-06-11 07:39] LABS: BARBITURATES, UR NEGATIVE (NEGATIVE); OPIATES, UR NEGATIVE (NEGATIVE); PHENCYCLIDINE, UR NEGATIVE (NEGATIVE)
[2018-06-11 07:56] LABS: BENZODIAZEPINES, UR POSITIVE (NEGATIVE)
[2018-06-11 09:33] VITALS: BP 148/99; PULSE 72; TEMP 98.4
--- NOTE | 2018-06-11 10:25 | RAD ---
Date of service: 06/11/2018 PROCEDURE: CHEST RADIOGRAPH, 1 VIEW HISTORY: chest pain COMPARISON: Chest radiograph dated 05/30/2018 FINDINGS: LUNGS: Clear. PLEURA: No pneumothorax or pleural fluid seen. CARDIOVASCULAR: Normal. OSSEOUS STRUCTURES: Unchanged. VISUALIZED UPPER ABDOMEN: Normal. OTHER FINDINGS: None. IMPRESSION: No active disease.
--- NOTE | 2018-06-11 10:39 | CT ---
Date of service: 06/11/2018 PROCEDURE: CT Chest without contrast HISTORY: ride sided chest pain COMPARISON: None available. TECHNIQUE: Contiguous axial images were obtained through the chest without intravenous contrast enhancement. Sagittal and coronal reconstructions were performed. Radiation dose (DLP): 362.1 mGy-cm. This CT exam was performed using one or more of the following dose reduction techniques: Automated exposure control, adjustment of the mA and/or kV according to patient size, and/or use of iterative reconstruction technique. FINDINGS: LUNGS: Nonspecific bibasilar patchy opacities. Visualized airway clear. MEDIASTINUM: Unremarkable thoracic aorta. No aneurysm. Normal sized heart. Main pulmonary artery unremarkable. No vascular congestion. No lymphadenopathy. PLEURA: Trace right pleural effusion. No pneumothorax. BONES: No fracture. No destructive lesion. UPPER ABDOMEN: Hepatic steatosis. Punctate left interpolar nonobstructive calculus. OTHER FINDINGS: None. IMPRESSION: Nonspecific bibasilar patchy opacities.
--- NOTE | 2018-06-13 12:38 | CARD ---
APPROVED REPORT Date of service: 06/11/2018 EKG Measurement Heart [id number] <Conclusion> Normal sinus rhythm Minimal voltage criteria for LVH, may be normal variant Borderline ECG
== END 2018-06-11 09:37 | disposition home or self-care (01) ==
LOC: C.ER 05:09
DX: R07.81 Pleurodynia (principal); I10 Essential (primary) hypertension; Z87.891 Personal history of nicotine dependence
CPT/HCPCS: 71045; 71250; 80053; 80324; 80345; 80346; 80349; 80353; 80358; 80361; 81001; 83690; 83992; 84484; 85025; 85610; 85730; 96374; 99285; J1885

== ENCOUNTER 2018-06-20 19:37 | Inpatient (IN) | payer MEDICAID, OTHER ==
[2018-06-20 19:38] VITALS: BMI 26.5
--- NOTE | 2018-06-20 19:50 | C.PDOC ---
History Of Present Illness Patient brought in via EMS for ETOH intoxication after patient refused to stay the skilled nursing. Denies any physical complaints at this time. Time Seen by Provider: 06/20/18 19:50 Chief Complaint (Nursing): Substance Abuse History Per: Patient History/Exam Limitations: no limitations Onset/Duration Of Symptoms: Hrs Current Symptoms Are (Timing): Still Present Suicide/Self Injury Attempted (Context): None Modifying Factor(s): Alcohol Severity: None Pain Scale Rating Of: 0 Associated Symptoms: denies: Depression, Suicidal Thoughts Involuntary Hold By: None Recent travel outside of the [place]: No Past Medical History Reviewed: Historical Data, Nursing Documentation, Vital Signs Vital Signs: Last Vital Signs Temp 98.6 F 06/21/18 13:36 Pulse 92 H 06/21/18 16:17 Resp 18 06/21/18 13:36 BP 144/112 H 06/21/18 16:17 Pulse Ox 98 06/21/18 13:36 - Medical History PMH: Bipolar Disorder, Fractures (left wrist 4 days ago cast intact), HTN, Paranoia, Seizures Denies: Diabetes, Hepatitis, HIV, Chronic Kidney Disease, Sexually Transmitted Disease Surgical History: Hernia Repair - [facility] Procedures DETOXIFICATION SERVICES FOR SUBSTANCE ABUSE TREATMENT (05/30/18) GROUP MANUSCRIPTS ARCHIVIST FOR SUBSTANCE ABUSE TREATMENT, PSYCHOEDUCATION (05/30/18) GROUP MANUSCRIPTS ARCHIVIST FOR SUBSTANCE ABUSE, COGNITIVE BEHAVIORAL (05/30/18) GROUP PSYCHOTHERAPY (05/30/18) INDIV PSYCHOTHERAPY FOR SUBSTANCE ABUSE TREATMENT, SUPPORT (05/30/18) INDIV PSYCHOTHERAPY FOR SUBSTANCE ABUSE, COGNITIV BEHAVIORAL (05/30/18) INDIV PSYCHOTHERAPY FOR SUBSTANCE ABUSE, PSYCHOEDUCATION (05/30/18) INDIVIDUAL PSYCHOTHERAPY, COGNITIVE-BEHAVIORAL (05/30/18) INDIVIDUAL PSYCHOTHERAPY, SUPPORTIVE (05/30/18) MEDICATION MANAGEMENT (01/27/18) Family History: States: No Known Family Hx - Social History Hx Tobacco Use: No (former smoker) Hx Alcohol Use: Yes Hx Substance Use: No - Immunization History Hx Tetanus Toxoid Vaccination: No Hx Influenza Vaccination: No Hx Pneumococcal Vaccination: No Review Of Systems Constitutional: Negative for: Fever, Chills Cardiovascular: Negative for: Chest Pain, Palpitations Respiratory: Negative for: Cough, Shortness of Breath Gastrointestinal: Negative for: Nausea, Vomiting Neurological: Negative for: Weakness, Numbness Physical Exam - Physical Exam Appears: Non-toxic, Other (ETOH on breath, no sign of injury) Skin: Warm, Dry Head: Normacephalic Oral Mucosa: Moist Chest: Symmetrical, No Tenderness Cardiovascular: Rhythm Regular Respiratory: No Rales, No Rhonchi, No Wheezing Gastrointestinal/Abdominal: Soft, No Tenderness Neurological/Psych: Oriented x3 ED Course And Treatment - Laboratory Results Result Diagrams: 06/21/18 01:54 06/21/18 01:[address] Courtney Acosta Comment: accepted the pt on her service and took over the care Counseled Patient/Family Regarding: Studies Performed, Diagnosis - Disposition Disposition: HOSPITALIZED Disposition Time: 19:50 Condition: FAIR - Clinical Impression Clinical Impression: Schizoaffective disorder - Scribe Statement The provider has reviewed the documentation as recorded by the Scribe Matheus James All medical record entries made by the Scribe were at my direction and personally dictated by me. I have reviewed the chart and agree that the record accurately reflects my personal performance of the history, physical exam, medical decision making, and the department course for this patient. I have also personally directed, reviewed, and agree with the discharge instructions and disposition. Decision To Admit - Pt Status Changed To: Hospital Disposition Of: Inpatient - Admit Certification Admit to Inpatient:: After my assessment, the patient will require hospitalization for at least two midnights. This is because of the severity of symptoms shown, intensity of services needed, and/or the medical risk in this patient being treated as an outpatient. - InPatient: Physician Admission Certification: I certify that this patient requires 2 or more midnights of care for the following reason:: After my assessment, the patient will require hospitalization for at least two midnights. This is because of the severity of symptoms shown, intensity of services needed, and/or the medical risk in this patient being treated as an outpatient. - . Bed Request Type: Psychiatry Admitting Physician: Courtney Acosta Patient Diagnosis: Schizoaffective disorder
[2018-06-21 02:01] LABS: BASO # 0.1 K/uL (0.0-0.2); EOS # 0.1 K/uL (0.0-0.7); EOS % 2.4 % (0.0-4.0); HEMOGLOBIN 14.2 g/dL (12.0-18.0); LYMPH # 2.4 K/uL (1.0-4.3); LYMPH % 57.2 % (20.0-40.0); MEAN CELL VOLUME 89.9 fL (80.0-94.0); MEAN CORPUSCULAR HEMOGLOBIN 30.2 pg (27.0-31.0); MEAN CORPUSCULAR HGB CONC 33.6 g/dL (33.0-37.0); MONO # 0.3 K/uL (0.0-0.8); MONO % 7.8 % (0.0-10.0); NEUT # 1.3 K/uL (1.8-7.0); NEUT % 30.6 % (50.0-75.0); NRBC % 0.1 % (0.0-2.0); RBC 4.71 Mil/uL (4.40-5.90); RED CELL DISTRIBUTION WIDTH 17.3 % (11.5-14.5); WHITE BLOOD COUNT 4.2 K/uL (4.8-10.8)
[2018-06-21 02:08] LABS: URINE BILIRUBIN NEGATIVE (NEGATIVE); URINE CLARITY Clear (Clear); URINE COLOR Yellow (YELLOW); URINE GLUCOSE (UA) NORMAL (Normal); URINE LEUKOCYTE ESTERASE NEG Leu/uL (Negative); URINE PROTEIN NEGATIVE (NEGATIVE)
[2018-06-21 02:20] LABS: BARBITURATES, UR NEGATIVE (NEGATIVE); OPIATES, UR NEGATIVE (NEGATIVE); PHENCYCLIDINE, UR NEGATIVE (NEGATIVE)
[2018-06-21 02:28] LABS: ALB/GLOB RATIO 1.2 (1.0-2.1); ALBUMIN 4.6 g/dL (3.5-5.0); ALT/SGPT 49 U/L (21-72); AST/SGOT 55 U/L (17-59); BLOOD UREA NITROGEN 5 mg/dL (9-20); CALCIUM 9.5 mg/dl (8.6-10.4); GFR NON-AFRICAN AMERICAN > 60
[2018-06-21 02:30] LABS: URINE BLOOD TRACE (NEGATIVE)
[2018-06-21 02:42] LABS: BENZODIAZEPINES, UR POSITIVE (NEGATIVE)
--- NOTE | 2018-06-21 06:09 | PCM.BM ---
<Charmaine Aguayon - Last Filed: 06/21/18 06:07> Treatment Plan Problems - Problems identified on initial assessmt Alcohol abuse Date Initiated: 06/21/18 Time Initiated: 06:08 Assessment reference: NA Status: Active Paranoid behavior Date Initiated: 06/21/18 Time Initiated: 06:09 Assessment reference: NA Status: Active Treatment assets and liabiliti Patient Assests: cooperative, ADL independent, negotiates basic needs, cognitively intact Patient Liabilities: poor support system, substance abuse - Milieu Protocol Maintain good personal hygiene: daily Encourage regular showers, daily Remind patient to perform daily oral care, daily Assist patient to perform ADL's Maintain personal safety: every shift Educate patient to report safety concerns to staff, every shift Monitor environment for contraband/sharps Medication safety: Monitor for expected outcome, potential side effects: every shift, Assess barriers to learning: every shift, Assess readiness for medication education: every shift <Kinza Gold - Last Filed: 06/22/18 11:29> - Diagnosis (1) Schizoaffective disorder Status: Acute Interventions: 06/22/18 11:29 * Assess/adjust medications daily and /or as needed * See patient on an individual basis 7x/week to assess status of hallucinations * Discuss risks, benefits, side effects and alternatives of medications * (2) Alcohol use disorder, severe, dependence Status: Acute Interventions: 06/22/18 11:29 * Assess 7x/week regarding severity of withdrawal * Educate regarding risks, benefits, side effects and alternatives of medications * Use Motivational Interviewing for abstinence * Use CBT for relapse prevention * Medication management for withdrawal symptoms * Encourage medication assisted treatment * <Cayla Sanchez - Last Filed: 06/22/18 14:14> Family Contact Family involvement: Famliy/SO not involved - Goals for Treatment Patient goals for treatment: "I want an outpatient program." Discharge/Continuing Care - Education Needs Education Needs: Patient Medication, Patient Coping Skills - Discharge Discharge Criteria: Tolerates medication w/o severe side effects, No longer exhibiting s/s of withdrawal, Reduction of target symptoms Discharge to:: Snf - Treatment Team Participation Discussed with Family/SO: No Was Patient/Family/SO present at Treatment Team Meeting: Yes
[2018-06-21] MEDS: Multiple Vitamins Tab PO SCH (13:32)
--- NOTE | 2018-06-21 13:55 | PCM.PSYCH ---
Addendum entered and electronically signed by Kinza Gold MD 06/21/18 23:15: Pt seen and evaluated with the resident, agreed with findings. Original Note: Initial Psychiatric Evaluation - Initial Psychiatric Evaluation Type of Admission: Voluntary Legal Status: Capacity Chief Complaint (in patient's own words): "I drank" History of Present Illness and Precipitating Events: The pt is seen, chart reviewed, case discussed. He is known from many previous admissions. He is known from previous consults and admissions. He is a poor historian. The patient is a 53 year old [place]-N[place]alese male, w two adult children, ex-cook, homeless, BIBA to [facility] due to feeling depressed and feeling paranoid. He did not take his medication after being discharged last week and also relapsed on alcohol again. He minimizes his use and says he only drinks "one, maybe two beers." He often goes into DTs but today he was AOx3 and calm. However, due to his wdw sxs he was started on librium taper in ER already. The patient was previously hospitalized at [facility] in [place], for mental health issues. The patient was also hospitalized at [facility] few times. He is depressed and paranoid, hearing voices occasionally. The patient was prescribed Risperdal, Seroquel, Zoloft and Gabapentin in the past. The patient denies any other substance use. He admits to not following with any psych clinic and didn't fill his meds after discharge. Past psych hx: 5+ admissions. No suicide attempt, drinks more than 20 years, denies drugs/cigarettes Medical hx: GI issues, fractured wrist (better now) Family Hx: Denied Current Medications: Active Medications Generic Name Dose Route Start Last Admin Trade Name Freq PRN Reason Stop Dose Admin Chlordiazepoxide 25 mg 06/21/18 12:53 06/21/18 13:32 Librium PO 25 mg Q4H PRN Administration Alcohol Withdrawal Chlordiazepoxide 25 mg 06/21/18 18:00 Librium PO 06/26/18 17:59 Q6 ANNETTE Taper Clonidine HCl 0.1 mg 06/21/18 12:53 Catapres PO Q4H PRN Symptoms of alcohol withdrawl Folic Acid 1 mg 06/21/18 12:30 06/21/18 13:32 Folic Acid PO 1 mg DAILY ANNETTE Administration Multivitamins 1 tab 06/21/18 13:00 06/21/18 13:32 Hexavitamin PO 1 tab DAILY ANNETTE Administration Sertraline HCl 50 mg 06/21/18 13:00 06/21/18 13:32 Zoloft PO 50 mg DAILY ANNETTE Administration Thiamine HCl 100 mg 06/21/18 13:00 06/21/18 13:32 Vitamin B1 Tab PO 100 mg DAILY ANNETTE Administration Trazodone HCl 50 mg 06/21/18 22:00 Desyrel PO HS PRN Insomnia Past Psychiatric History - Past Psychiatric History Previous Treatment History: Inpatient Pertinent Medical Hx (Current Medical&Sleep Prob, Allergies): Allergies Allergy/AdvReac Type Severity Reaction Status Date / Time No Known Allergies Allergy Verified 06/20/18 19:41 Risperidone [Risperdal M-TAB] 1 mg PO BID 04/22/18 traZODone [trazodone Hydrochloride] 100 mg PO DAILY 04/22/18 Escitalopram [Lexapro] 10 mg PO DAILY #30 tab 06/04/18 Azithromycin [Zithromax] 2 tab PO DAILY #6 tab 06/11/18 Citalopram [celeXA] 20 mg PO DAILY 06/11/18 Ibuprofen [Motrin] 600 mg PO Q6 #25 tab 06/11/18 Review of Systems - Psychiatric Psychiatric: Abnormal Sleep Pattern, Anhedonia, Anxiety, Change in Appetite, Depression, Difficulty Concentrating, Hallucinations. absent: Homicidal Ideation, Suicidal Ideation Mental Status Examination - Personal Presentation Personal Presentation: Looks older than stated age - Affect Affect: Constricted - Motor Activity Motor Activity: Calm - Reliability in Providing Information Reliability in Providing Information: Fair - Speech Speech: Organized - Mood Mood: Depressed, Anxious - Formal Thought Process Formal Thought Process: No Impairment - Cognitive Functions Orientation: Person, Place, Situation, Time Sensorium: Alert Attention/Concentration: Easily distracted Abstract Thinking: [place] Estimate of Intelligence: Below average Judgement: Intact, as evidence by: Insight regarding need for hospitalization Memory: Recent intact, as evidence by: Ability to recall events of the day - Risk Risk: Diminished functioning - Strength & Assets Inventory Strength & Assets Inventory: Cooperative - Limitations Limitations: Other DSM 5 DX - DSM 5 DSM 5 Diagnosis: Schizoaffective d/o - depressed Alcohol withdrawal Alcohol use d/o - severe - Recommended/Plan of Treatment Treatment Recommendations and Plan of Treatment: Librium taper Folic acid, MVI, thiamine for alcohol withdrawal As needed medications All risks, benefits and alternatives of medications, including no medications, discussed and the patient understood and agreed. Supportive therapy and psychoeducation [place] for abstinence Encourage MAT (antabuse, naltrexone), rehab or IOP Attend self-help groups as well Zoloft for depression Trazodone for sleep CBT and support 34 min - Smoking Cessation Smoking Cessation Initiated: Yes
[2018-06-22] MEDS: Multiple Vitamins Tab PO SCH (10:24)
--- NOTE | 2018-06-22 11:28 | PCM.PYCHPN ---
Psychiatric Progress Note - Psychiatric Progress Note Patient seen today, length of contact: 15 min Patient Chief Complaint: I was feeling depressed and paranoid.' Problems Identified/Issues Discussed: Patient seen and evaluated, chart reviewed and discussed with the nurse. Pt reports depressed mood, and reports feelings of hopelessness and helplessness. Pt remained disorganized and internally preoccupied. He remained isolated and withdrawn, and confined to his room. Patient reports of withdrawal symptoms including abdominal cramps, anxiety, headaches and sweating. Patient is compliant with medications and denies any side effects. Symptoms are improving but pt needs more time to stabilize. Support and psychoeducation given. Medication Change: Yes Medical Record Reviewed: Yes Mental Status Examination - Cognitive Function Orientation: Person, Place, Situation, Time Memory: Intact Attention: WNL Concentration: Poor Association: Loose Fund of Knowledge: WNL - Mood Mood: Depressed, Anxious - Affect Affect: Constricted - Speech Speech: Soft - Formal Thought Process Formal Thought Process: Delusions, Paranoia, Loosening of associations - Suicidal Ideation Suicidal Ideation: No - Homicidal Ideation Homicidal Ideation: No Goal/Treatment Plan - Goal/Treatment Plan Need for Continued Stay: Severe depression anxiety, Severe functional impairment Progress Toward Problem(s) and Goals/Treatment Plan: Schizoaffective d/o - depressed Alcohol withdrawal Alcohol use d/o - severe Librium taper Folic acid, MVI, thiamine for alcohol withdrawal As needed medications All risks, benefits and alternatives of medications, including no medications, discussed and the patient understood and agreed. Supportive therapy and psychoeducation [place] for abstinence Encourage MAT (antabuse, naltrexone), rehab or IOP Attend self-help groups as well Zoloft for depression Trazodone for sleep CBT and support Start Olanzapine 5 mg PO BID - Smoking Cessation Smoking Cessation Initiated: No
[2018-06-22] MEDS: Aluminum Hydroxide/Magnesium Hydroxide Susp (30 mL) PO PRN (21:15)
[2018-06-23] MEDS: Multiple Vitamins Tab PO SCH (09:44)
[2018-06-23] MEDS: Aluminum Hydroxide/Magnesium Hydroxide Susp (30 mL) PO PRN (09:45)
[2018-06-23] MEDS ORDERED: Pneumococcal 23-Valent Vaccine IM ONE (10:00)
--- NOTE | 2018-06-23 11:33 | PCM.PYCHPN ---
Psychiatric Progress Note - Psychiatric Progress Note Patient seen today, length of contact: 15 min Patient Chief Complaint: I was feeling depressed and paranoid.' Problems Identified/Issues Discussed: Patient seen and evaluated, chart reviewed and discussed with the nurse. Pt reports depressed mood, and reports feelings of hopelessness and helplessness. Pt remained disorganized and internally preoccupied. He remained isolated and withdrawn, and confined to his room. Patient reports of withdrawal symptoms including abdominal cramps, anxiety, headaches and sweating. Patient is compliant with medications and denies any side effects. Symptoms are improving but pt needs more time to stabilize. Support and psychoeducation given. Medication Change: Yes Medical Record Reviewed: Yes Mental Status Examination - Cognitive Function Orientation: Person, Place, Situation, Time Memory: Intact Attention: WNL Concentration: Poor Association: Loose Fund of Knowledge: WNL - Mood Mood: Depressed, Anxious - Affect Affect: Constricted - Speech Speech: Soft - Formal Thought Process Formal Thought Process: Delusions, Paranoia, Loosening of associations - Suicidal Ideation Suicidal Ideation: No - Homicidal Ideation Homicidal Ideation: No Goal/Treatment Plan - Goal/Treatment Plan Need for Continued Stay: Severe depression anxiety, Severe functional impairment Progress Toward Problem(s) and Goals/Treatment Plan: Schizoaffective d/o - depressed Alcohol withdrawal Alcohol use d/o - severe Librium taper Folic acid, MVI, thiamine for alcohol withdrawal As needed medications All risks, benefits and alternatives of medications, including no medications, discussed and the patient understood and agreed. Supportive therapy and psychoeducation OK for abstinence Encourage MAT (antabuse, naltrexone), rehab or IOP Attend self-help groups as well Zoloft for depression Trazodone for sleep CBT and support Start Olanzapine 5 mg PO BID
--- NOTE | 2018-06-23 15:03 | CT ---
Date of service: 06/23/2018 PROCEDURE: CT HEAD WITHOUT CONTRAST. HISTORY: Change in mental status COMPARISON: Comparison made with prior study dated 06/16/2018. comparison also made with prior MRI brain 07/23/2017. TECHNIQUE: Axial computed tomography images were obtained through the head/brain without intravenous contrast. Radiation dose: Total exam DLP = 1210.45 mGy-cm. This CT exam was performed using one or more of the following dose reduction techniques: Automated exposure control, adjustment of the mA and/or kV according to patient size, and/or use of iterative reconstruction technique. FINDINGS: HEMORRHAGE: No intracranial hemorrhage. BRAIN: Suspect minimal chronic periventricular white matter ischemic changes No obvious parenchymal nor extra-axial mass or collection seen on this noncontrast study. Moderate generalized volume loss. VENTRICLES: No obstructive hydrocephalus. CALVARIUM: Unremarkable. PARANASAL SINUSES: Unremarkable as visualized. No significant inflammatory changes. MASTOID AIR CELLS: Unremarkable as visualized. No inflammatory changes. OTHER FINDINGS: None. IMPRESSION: No acute intracranial hemorrhage. Suspect minimal chronic periventricular white matter ischemic changes. Moderate generalized volume loss
--- NOTE | 2018-06-23 16:58 | CP.PCM.HP ---
<Hanny He P - Last Filed: 06/23/18 21:18> History of Present Illness - History of Present Illness History of Present Illness: PGY-1 Consult note for Hospitalist. HPI: Patient is 53 year old male with PMHx of schizoaffective disorder, alcohol use disorder, and HTN who was admitted to psych on 06/21/18 for alcohol withdrawal and paranoia. Patient was admitted to from 05/30-06/04/18 for similar symptoms, however following discharge he relapsed and was non-compliant with medications. Medical consult was called for worsening disorientation over the past 2 days. Patient states he currently does not feel confused. He is complaining of tremulousness, feeling cold, diaphoresis, paranoia, anxiety and headache. He states his last drink was on 06/20/18 when he drank one bottle of vodka. Patient has a hx of DTs. He denies head trauma, focal weakness or numbness, blurred vision, difficulty speaking, fever, nausea, vomiting, tactile, auditory and visual hallucinations. PMhx: Schizoaffective disorder, alcohol use disorder, DTs, HTN, thrombocytopenia Meds: Escitalopram 10mg daily, Risperadone 2 mg daily, Mirtazapine 15mg HS (non- compliant) Surgeries: hernia repair Allergies: Denies FamHx: HTN Social: States he drinks 1-2 beers/ day, which is inconsistent form prior detox notes of 1 pint of vodka daily for 20 years. Denies smoking, denies drugs. Patient is homeless. Unemployed, used to work as a cook. Present on Admission - Present on Admission Any Indicators Present on Admission: No Review of Systems - Constitutional Constitutional: Chills, Headache. absent: Fever - EENT Eyes: absent: Blurred Vision, Diplopia Ears: Dizziness. absent: Decreased Hearing - Cardiovascular Cardiovascular: Chest Pain (with cough only). absent: Dyspnea on Exertion, Edema, Orthopnea, Palpitations - Respiratory Respiratory: Cough. absent: Dyspnea, Hemoptysis, Wheezing - Gastrointestinal Gastrointestinal: absent: Abdominal Pain, Cramping, Diarrhea, Melena, Nausea - Neurological Neurological: Dizziness, Headaches. absent: Confusion, Numbness, Focal Weakness, Loss of Vision, Paresthesias - Psychiatric Psychiatric: Paranoia. absent: Hallucinations, Homicidal Ideation, Suicidal Ideation, Visual Hallucinations, Tactile Hallucinations Past Patient History - Infectious Disease Hx of Infectious Diseases: None - Past Medical History & Family History Past Medical History?: Yes - Past Social History Smoking Status: Former Smoker - CARDIAC Hx Hypertension: Yes - PULMONARY Hx Tuberculosis: Yes - NEUROLOGICAL Hx Seizures: Yes - HEENT Hx HEENT Problems: No - RENAL Hx Chronic Kidney Disease: No - ENDOCRINE/METABOLIC Hx Endocrine Disorders: No - HEMATOLOGICAL/ONCOLOGICAL Hx Human Immunodeficiency Virus (HIV): No - INTEGUMENTARY Hx Dermatological Problems: No - MUSCULOSKELETAL/RHEUMATOLOGICAL Hx Fractures: Yes (left wrist 4 days ago cast intact) - GASTROINTESTINAL Hx Gastrointestinal Disorders: No - GENITOURINARY/GYNECOLOGICAL Hx Sexually Transmitted Disorders: No - PSYCHIATRIC Hx Substance Use: Yes - SURGICAL HISTORY Hx Surgeries: Yes Hx Herniorrhaphy: Yes (left) - ANESTHESIA Hx Anesthesia: Yes Hx Anesthesia Reactions: No Hx Malignant Hyperthermia: No Meds Allergies/Adverse Reactions: Allergies Allergy/AdvReac Type Severity Reaction Status Date / Time No Known Allergies Allergy Verified 06/20/18 19:41 Physical Exam - Constitutional Appears: Unkempt, Confused - Head Exam Head Exam: ATRAUMATIC, NORMOCEPHALIC - Eye Exam Eye Exam: EOMI, Nystagmus (mild, on lateral gaze) Pupil Exam: PERRL - ENT Exam ENT Exam: Mucous Membranes Moist - Neck Exam Neck exam: Positive for: Full Rom - Respiratory Exam Respiratory Exam: Clear to Auscultation Bilateral, NORMAL BREATHING PATTERN. absent: Rales, Rhonchi, Wheezes - Cardiovascular Exam Cardiovascular Exam: REGULAR RHYTHM, +S1, +S2 - GI/Abdominal Exam GI & Abdominal Exam: Normal Bowel Sounds, Soft. absent: Guarding, Rebound, Tenderness - Extremities Exam Extremities exam: Positive for: full ROM. Negative for: pedal edema, tenderness - Neurological Exam Additional comments: Patient is awake, slow to respond, oriented x3, mumbled speech, unsteady gait, 5/5 muscle strength all extremities, CN 2-12 intact, finger to nose normal, + fine tremor. - Psychiatric Exam Psychiatric exam: Flat Affect - Skin Skin Exam: Dry, Normal Color, Warm Results - Vital Signs Recent Vital Signs: Last Vital Signs Temp 98 F 06/23/18 07:01 Pulse 82 06/23/18 15:56 Resp 18 06/23/18 07:01 BP 138/93 H 06/23/18 15:56 Pulse Ox 97 06/22/18 06:00 - Labs Result Diagrams: 06/21/18 01:54 06/21/18 01:54 Labs: Laboratory Results - last 24 hr 06/23/18 14:20 Ammonia 13 D Assessment & Plan - Assessment and Plan (Free Text) Plan: 53 year old Male with PMHx of schizoaffective disorder, alcohol use disorder, and HTN, who was admitted to psych for paranoia and alcohol withdrawal, medicine was consulted for worsening disorientation. Altered mental status likely 2/2 to alcohol withdrawal -CT head: No acute intracranial hemorrhage. Suspect minimal chronic periventricular white matter ischemic changes. Moderate generalized volume loss. -Stat Dose of Librium 50mg -Librium taper increased 50mg PO Q6H for 2 days 50mg PO Q8H for 1 day 25mg PO Q8H for 1 day -Librium 25mg Q4H PRN -CIWA protocol PRN -Thiamine increased to 100mg PO BID Schizoaffective disorder -As per Psych <Hermann Haq - Last Filed: 06/25/18 15:31> Results - Vital Signs Recent Vital Signs: Last Vital Signs Temp 97.8 F 06/25/18 10:39 Pulse 109 H 06/25/18 10:39 Resp 20 06/25/18 10:39 BP 129/92 H 06/25/18 10:39 Pulse Ox 97 06/22/18 06:00 - Labs Result Diagrams: 06/25/18 11:50 06/25/18 11:50 Labs: Laboratory Results - last 24 hr 06/24/18 06/25/18 06/25/18 16:18 11:50 11:50 WBC 8.0 D RBC 4.32 L Hgb 13.3 Hct 40.1 MCV 92.9 D MCH 30.7 MCHC 33.1 RDW 18.0 H Plt Count 82 L D MPV 8.0 Neut % (Auto) 70.7 Lymph % (Auto) 20.3 [place] % (Auto) 7.1 Eos % (Auto) 1.3 Baso % (Auto) 0.6 Neut # (Auto) 5.7 Lymph # (Auto) 1.6 [place] # (Auto) 0.6 Eos # (Auto) 0.1 Baso # (Auto) 0.0 Differential Comment Sodium 140 Potassium 4.1 Chloride 100 Carbon Dioxide 25 Anion Gap 18 BUN 17 Creatinine 0.7 L Est GFR ( Amer) > 60 Est GFR (Non-Af Amer) > 60 Random Glucose 140 H Calcium 9.9 Phosphorus 3.0 Magnesium 1.8 Total Bilirubin 0.4 AST 33 ALT 45 Alkaline Phosphatase 118 Total Creatine Kinase 119 CK-MB (Mass) 0.68 Troponin I < 0.0120 Total Protein 8.1 Albumin 4.6 Globulin 3.5 Albumin/Globulin Ratio 1.3 Attending/Attestation - Attestation I have personally seen and examined this patient.: Yes I have fully participated in the care of the patient.: Yes I have reviewed all pertinent clinical information: Yes Notes (Text): 53 year old Male with PMHx of schizoaffective disorder, alcohol use disorder, and HTN, who was admitted to psych for paranoia and alcohol withdrawal, medicine was consulted for worsening disorientation. Altered mental status likely 2/2 to alcohol withdrawal
[2018-06-24] MEDS: Multiple Vitamins Tab PO SCH (09:30)
--- NOTE | 2018-06-24 10:19 | RAD ---
Chest x-ray single frontal view HISTORY: Chest pain. Comparison: 06/11/2018 Findings: Moderate venous congestion. Right hilar prominence and consolidative changes. Patchy increased markings at the left lung base. Cardiomegaly. Degenerative changes in the spine and shoulders. Impression: Moderate venous congestion. Right hilar prominence and consolidative changes. Patchy increased markings at the left lung base. Cardiomegaly.
--- NOTE | 2018-06-24 11:08 | PCM.PYCHPN ---
Psychiatric Progress Note - Psychiatric Progress Note Patient seen today, length of contact: 15 min Patient Chief Complaint: I was feeling depressed and I m seeing things.' Problems Identified/Issues Discussed: Patient seen and evaluated, chart reviewed and discussed with the nurse. Per staff, yesterday pt became increasingly disorganized. As a result medicine was consulted. Pt reports depressed mood, and reports feelings of hopelessness and helplessness. Pt remained disorganized and internally preoccupied. He remained isolated and withdrawn, and confined to his room. Patient reports of withdrawal symptoms including abdominal cramps, anxiety, headaches and sweating. Patient is compliant with medications and denies any side effects. Symptoms are improving but pt needs more time to stabilize. Support and psychoeducation given. Medication Change: Yes Medical Record Reviewed: Yes Mental Status Examination - Cognitive Function Orientation: Person, Place, Situation, Time Memory: Intact Attention: WNL Concentration: Poor Association: Loose Fund of Knowledge: WNL - Mood Mood: Depressed, Anxious - Affect Affect: Constricted - Speech Speech: Soft - Formal Thought Process Formal Thought Process: Delusions, Paranoia, Loosening of associations - Suicidal Ideation Suicidal Ideation: No - Homicidal Ideation Homicidal Ideation: No Goal/Treatment Plan - Goal/Treatment Plan Need for Continued Stay: Severe depression anxiety, Severe functional impairment Progress Toward Problem(s) and Goals/Treatment Plan: Schizoaffective d/o - depressed Alcohol withdrawal Alcohol use d/o - severe Librium taper Folic acid, MVI, thiamine for alcohol withdrawal As needed medications All risks, benefits and alternatives of medications, including no medications, discussed and the patient understood and agreed. Supportive therapy and psychoeducation ME for abstinence Encourage MAT (antabuse, naltrexone), rehab or IOP Attend self-help groups as well Zoloft for depression Trazodone for sleep CBT and support Start Olanzapine 5 mg PO BID
--- NOTE | 2018-06-24 15:18 | RAD ---
HISTORY: check infiltrate COMPARISON: Chest x-ray performed earlier the same day. TECHNIQUE: Chest PA and lateral FINDINGS: LUNGS: Hypoinflation. Right middle and left lower lobe infiltrates. Please note that chest x-ray has limited sensitivity for the detection of pulmonary masses. PLEURA: No significant pleural effusion identified. No definite pneumothorax . CARDIOVASCULAR: Heart size appears top normal. OSSEOUS STRUCTURES: No acute osseous abnormality identified. VISUALIZED UPPER ABDOMEN: Unremarkable. OTHER FINDINGS: None. IMPRESSION: Right middle and left lower lobe infiltrates. Hypoinflation.
[2018-06-24 16:46] LABS: CK-MB 0.68 ng/mL (0.0-3.38)
[2018-06-24] MEDS: Saccharomyces Boulardi 250 mg Cap PO SCH (17:40)
--- NOTE | 2018-06-24 20:37 | CARD ---
APPROVED REPORT Date of service: 06/24/2018 EKG Measurement Heart [id number] ID [id number] <Conclusion> Normal sinus rhythm Moderate voltage criteria for LVH, may be normal variant Borderline ECG
--- NOTE | 2018-06-24 20:46 | CP.PCM.PN ---
<Tha Hart - Last Filed: 06/24/18 20:36> Subjective - Date & Time of Evaluation Date of Evaluation: 06/24/18 Time of Evaluation: 09:20 - Subjective Subjective: Medicine Progress Note for Hospitalist Service Pt seen and examined at bedside this am. Resting in bed, difficult to arouse, dozing off in between obtainment of HPI. States he was feeling paranoid yesterday, unsure as to why. C/o diffuse chest pain on R and L sides with radiation to back, states that this pain started yesterday and that he told the RN about his symptoms. Also c/o associated shortness of breath secondary to his chest pain, Denies fever, chills, headache, dizzines, n/v/d/c, abd pain, urinary complaints, or other symptoms. Objective - Vital Signs/Intake and Output Vital Signs (last 24 hours): Temp Pulse Resp BP Pulse Ox 97.6 F 69 18 134/79 97 06/24/18 06:27 06/24/18 15:59 06/24/18 06:27 06/24/18 15:59 06/22/18 06:00 - Medications Medications: Current Medications Al Hydrox/Mg Hydrox/Simethicone (Maalox 30 Ml) 30 ml PO Q6 PRN PRN Reason: Indigestion / Heartburn Last Admin: 06/23/18 09:45 Dose: 30 ml Albuterol/Ipratropium (Duoneb 3 Mg/0.5 Mg (3 Ml) Ud) 3 ml INH RQ6 ANNETTE Chlordiazepoxide (Librium) 25 mg PO Q4H PRN PRN Reason: Alcohol Withdrawal Last Admin: 06/24/18 09:30 Dose: 25 mg Chlordiazepoxide (Librium) 50 mg PO Q6H ANNETTE; Taper Stop: 06/27/18 17:59 Last Admin: 06/24/18 17:39 Dose: 50 mg Clonidine HCl (Catapres) 0.1 mg PO Q4H PRN PRN Reason: Symptoms of alcohol withdrawl Last Admin: 06/23/18 06:11 Dose: 0.1 mg Folic Acid (Folic Acid) 1 mg PO DAILY [facility] Last Admin: 06/24/18 09:30 Dose: 1 mg Moxifloxacin HCl (Avelox) 400 mg PO DAILY [facility]; Protocol Last Admin: 06/24/18 17:41 Dose: 400 mg Multivitamins (Hexavitamin) 1 tab PO DAILY [facility] Last Admin: 06/24/18 09:30 Dose: 1 tab Olanzapine (Zyprexa) 5 mg PO BID [facility] Last Admin: 06/24/18 17:40 Dose: 5 mg Saccharomyces Boulardii (Florastor) 250 mg PO BID [facility] Last Admin: 06/24/18 17:40 Dose: 250 mg Sertraline HCl (Zoloft) 50 mg PO DAILY [facility] Last Admin: 06/24/18 09:30 Dose: 50 mg Thiamine HCl (Vitamin B1 Tab) 100 mg PO BID [facility] Last Admin: 06/24/18 17:40 Dose: 100 mg Trazodone HCl (Desyrel) 50 mg PO HS PRN PRN Reason: Insomnia Last Admin: 06/22/18 21:15 Dose: 50 mg - Labs Labs: 06/21/18 01:54 06/21/18 01:54 - Constitutional Appears: Non-toxic, No Acute Distress - Head Exam Head Exam: ATRAUMATIC, NORMOCEPHALIC - Eye Exam Eye Exam: EOMI, Normal appearance, PERRL - ENT Exam ENT Exam: Mucous Membranes Moist - Neck Exam Neck Exam: Full ROM, Normal Inspection - Respiratory Exam Respiratory Exam: Chest Wall Tenderness, Clear to Ausculation Bilateral, NORMAL BREATHING PATTERN. absent: Rales, Rhonchi, Wheezes - Cardiovascular Exam Cardiovascular Exam: REGULAR RHYTHM, +S1, +S2. absent: Gallop, Rubs, Murmur - GI/Abdominal Exam GI & Abdominal Exam: Soft, Normal Bowel Sounds. absent: Distended, Firm, Guarding, Rigid, Tenderness, Organomegaly, Rebound - Extremities Exam Extremities Exam: Full ROM, Normal Capillary Refill, Normal Inspection. absent: Calf Tenderness, Joint Swelling, Pedal Edema - Neurological Exam Neurological Exam: Alert, Awake, CN II-XII Intact, Oriented x3 - Psychiatric Exam Psychiatric exam: Flat Affect - Skin Skin Exam: Dry, Intact, Normal Color, Warm Assessment and Plan - Assessment and Plan (Free Text) Assessment: 53 year old Male with PMHx of schizoaffective disorder, alcohol use disorder, and HTN, who was admitted to psych for paranoia and alcohol withdrawal, medicine was consulted for worsening disorientation. Plan: Altered mental status likely 2/2 to alcohol withdrawal -CT head: No acute intracranial hemorrhage. Suspect minimal chronic periventricular white matter ischemic changes. Moderate generalized volume loss. -C/w librium taper -Librium 25mg Q4H PRN -CIWA protocol -Thiamine 100mg PO BID -Pt hypertensive, likely 2/2 withdrawal symptoms, continue to monitor bp Chest pain -Cardiac enzymes x2 negative -EKG NSR, no St-T acute waveforms -CXR PA/Lateral: R middle and lower lobe infiltrates, hypoinflation PNA -Started Avalox 400 mg PO daily -Florastor 250 mg PO bid -Continue to monitor clinically -Duonebs q6h prn shortness of breath Schizoaffective disorder -As per Psych Pt seen, examined with, and plan discussed with Dr. Poe, attending. Tha Hart DO PGY-1, Telephone Information Clerk Pager #[phone] <Lauren Poe V - Last Filed: 06/25/18 17:59> Objective - Vital Signs/Intake and Output Vital Signs (last 24 hours): Temp Pulse Resp BP Pulse Ox 97.8 F 90 20 146/91 H 97 06/25/18 10:39 06/25/18 16:15 06/25/18 10:39 06/25/18 16:15 06/22/18 06:00 - Medications Medications: Current Medications Al Hydrox/Mg Hydrox/Simethicone (Maalox 30 Ml) 30 ml PO Q6 PRN PRN Reason: Indigestion / Heartburn Last Admin: 06/23/18 09:45 Dose: 30 ml Albuterol/Ipratropium (Duoneb 3 Mg/0.5 Mg (3 Ml) Ud) 3 ml INH RQ6 ANNETTE Last Admin: 06/25/18 13:29 Dose: 3 ml Chlordiazepoxide (Librium) 25 mg PO Q4H PRN PRN Reason: Alcohol Withdrawal Last Admin: 06/24/18 09:30 Dose: 25 mg Chlordiazepoxide (Librium) 50 mg PO Q6H ANNETTE; Taper Stop: 06/27/18 17:59 Last Admin: 06/25/18 17:36 Dose: 50 mg Clonidine HCl (Catapres) 0.1 mg PO Q4H PRN PRN Reason: Symptoms of alcohol withdrawl Last Admin: 06/23/18 06:11 Dose: 0.1 mg Folic Acid (Folic Acid) 1 mg PO DAILY [facility] Last Admin: 06/25/18 09:33 Dose: 1 mg Guaifenesin (Mucinex La) 600 mg PO BID [facility] Influenza Virus Vaccine (Fluzone Quad [id number]) 60 mcg IM .ONCE ONE Stop: 06/26/18 10:01 Moxifloxacin HCl (Avelox) 400 mg PO DAILY [facility]; Protocol Last Admin: 06/25/18 09:33 Dose: 400 mg Multivitamins (Hexavitamin) 1 tab PO DAILY [facility] Last Admin: 06/25/18 09:33 Dose: 1 tab Olanzapine (Zyprexa) 5 mg PO BID [facility] Last Admin: 06/25/18 17:34 Dose: 5 mg Saccharomyces Boulardii (Florastor) 250 mg PO BID [facility] Last Admin: 06/25/18 17:36 Dose: 250 mg Sertraline HCl (Zoloft) 50 mg PO DAILY [facility] Last Admin: 06/25/18 09:33 Dose: 50 mg Thiamine HCl (Vitamin B1 Tab) 100 mg PO BID [facility] Last Admin: 06/25/18 17:34 Dose: 100 mg Trazodone HCl (Desyrel) 50 mg PO HS PRN PRN Reason: Insomnia Last Admin: 06/24/18 21:04 Dose: 50 mg - Labs Labs: 06/25/18 11:50 06/25/18 11:50 Attending/Attestation - Attestation I have personally seen and examined this patient.: Yes I have fully participated in the care of the patient.: Yes I have reviewed all pertinent clinical information, including history, physical exam and plan: Yes Notes (Text): This is late computer entry for 06/24/2018. Medicine on consult Patient seen, examined, case discussed with medical social worker. Patient seen during morning rounds. She had mild tremors however he does recommend recognizes me from prior hospitalizations. Patient is awake, alert, oriented 2 to month, year, Randall as president). Patient is presently on a Librium taper today is day 2 with Librium as needed. During pre-rounds patient noted to the resident that he had chest pain, we did order portable chest noting for pulmonary venous congestion. We have repeated chest PA and lateral which no [place] for right middle and lower lobe infiltrates. We did order for serology and urine studies including strep pneumoniae in urine, Mycoplasma pneumoniae IgM, and legionella urine. We have started for Avelox 400 mg by mouth once a day to cover for pneumonia. We have started florastor 250 mg by mouth twice a day as a probiotic while on antibiotic. Patient's ordered for duonebs as needed for shortness of breath. Assessment/plan Plan: 1) Alcohol abuse, Alcohol withdrawal, Alcohol dependence Assessment/plan * CT head: No acute intracranial hemorrhage. Suspect minimal chronic periventricular white matter ischemic changes. Moderate generalized volume loss. * C/w librium taper. Patient is on day 2 of taper * Librium 25mg Q4H PRN * CIWA protocol * Thiamine 100mg PO BID * Folic acid 1 mg by mouth daily * Multivitamin 1 tab by mouth daily 2. Pleuritic chest pain Assessment/plan * Cardiac enzymes x2 negative * EKG NSR, no St-T acute waveforms * CXR PA/Lateral: R middle and lower lobe infiltrates, hypoinflation * We'll start Avelox 400 mg by mouth daily * Will order for strep pneumonia urine, mycoplasma IgM, and legionella urine * Duonebs when necessary for shortness of breath * Note patient has had a prior cardiac workup including stress test which was unremarkable 3. Pneumonia Assessment/plan * Started Avelox 400 mg PO daily * Florastor 250 mg PO bid * Duonebs q6h prn shortness of breath 4. Schizoaffective disorder Assessment/plan * As per Psych
[2018-06-24] MEDS: Albuterol-Ipratrop 3 mg / 0.5 (3 ml) UD INH SCH (20:47)
[2018-06-25] MEDS: Albuterol-Ipratrop 3 mg / 0.5 (3 ml) UD INH SCH ×4 (02:35→13:29)
[2018-06-25] MEDS: Multiple Vitamins Tab PO SCH (09:33)
[2018-06-25] MEDS: Saccharomyces Boulardi 250 mg Cap PO SCH ×2 (09:33→17:36)
[2018-06-25 12:10] LABS: BASO % 0.6 % (0.0-2.0); EOS # 0.1 K/uL (0.0-0.7); EOS % 1.3 % (0.0-4.0); HEMOGLOBIN 13.3 g/dL (12.0-18.0); LYMPH # 1.6 K/uL (1.0-4.3); LYMPH % 20.3 % (20.0-40.0); MEAN CORPUSCULAR HEMOGLOBIN 30.7 pg (27.0-31.0); MEAN CORPUSCULAR HGB CONC 33.1 g/dL (33.0-37.0); MONO # 0.6 K/uL (0.0-0.8); MONO % 7.1 % (0.0-10.0); NEUT # 5.7 K/uL (1.8-7.0); NEUT % 70.7 % (50.0-75.0); RBC 4.32 Mil/uL (4.40-5.90)
[2018-06-25 12:16] LABS: ALB/GLOB RATIO 1.3 (1.0-2.1); ALBUMIN 4.6 g/dL (3.5-5.0); ALT/SGPT 45 U/L (21-72); AST/SGOT 33 U/L (17-59); BLOOD UREA NITROGEN 17 mg/dL (9-20); CALCIUM 9.9 mg/dl (8.6-10.4); GFR NON-AFRICAN AMERICAN > 60
[2018-06-25 12:19] LABS: MEAN CELL VOLUME 92.9 fL (80.0-94.0)
[2018-06-25 17:25] LABS: STREP PNEUMONIAE NEGATIVE (NEGATIVE)
--- NOTE | 2018-06-25 18:01 | CP.PCM.PN ---
Subjective - Date & Time of Evaluation Date of Evaluation: 06/25/18 Time of Evaluation: 11:00 - Subjective Subjective: Hospitalist note Patient seen, examined, and case discussed with medical reimbursement specialist. Patient denies headache, reports pleuritic chest pain, reports dry cough, denies abdominal pain, denies nausea, denies vomiting reports he's having adequate bowel movements is walking to and from with us from the kitchen to his room and back. Patient had some difficulty getting a nebulizer treatment overnight we did explain with nursing that the and urine up is as needed for shortness of breath in light of pneumonia. I did explain to the patient he does have pneumonia we did start him on antibiotic treatment to help him. I also did explain to patient that the alcohol will depress his immune system and he is encouraged to stop his alcohol use. Patient reports he does hear voices overnight home with threatening messages and usually the alcohol allows him to sleep however he has not been sleeping. I did indicate to him that alcohol causes a biochemical change with will make his sleeping difficult and interrupted Objective - Vital Signs/Intake and Output Vital Signs (last 24 hours): Temp Pulse Resp BP Pulse Ox 97.8 F 90 20 146/91 H 97 06/25/18 10:39 06/25/18 16:15 06/25/18 10:39 06/25/18 16:15 06/22/18 06:00 - Medications Medications: Current Medications Al Hydrox/Mg Hydrox/Simethicone (Maalox 30 Ml) 30 ml PO Q6 PRN PRN Reason: Indigestion / Heartburn Last Admin: 06/23/18 09:45 Dose: 30 ml Albuterol/Ipratropium (Duoneb 3 Mg/0.5 Mg (3 Ml) Ud) 3 ml INH RQ6 ANNETTE Last Admin: 06/25/18 13:29 Dose: 3 ml Chlordiazepoxide (Librium) 25 mg PO Q4H PRN PRN Reason: Alcohol Withdrawal Last Admin: 06/24/18 09:30 Dose: 25 mg Chlordiazepoxide (Librium) 50 mg PO Q6H ANNETTE; Taper Stop: 06/27/18 17:59 Last Admin: 06/25/18 17:36 Dose: 50 mg Clonidine HCl (Catapres) 0.1 mg PO Q4H PRN PRN Reason: Symptoms of alcohol withdrawl Last Admin: 06/23/18 06:11 Dose: 0.1 mg Folic Acid (Folic Acid) 1 mg PO DAILY [facility] Last Admin: 06/25/18 09:33 Dose: 1 mg Guaifenesin (Mucinex La) 600 mg PO BID [facility] Influenza Virus Vaccine (Fluzone Quad [id number]) 60 mcg IM .ONCE ONE Stop: 06/26/18 10:01 Moxifloxacin HCl (Avelox) 400 mg PO DAILY [facility]; Protocol Last Admin: 06/25/18 09:33 Dose: 400 mg Multivitamins (Hexavitamin) 1 tab PO DAILY [facility] Last Admin: 06/25/18 09:33 Dose: 1 tab Olanzapine (Zyprexa) 5 mg PO BID [facility] Last Admin: 06/25/18 17:34 Dose: 5 mg Saccharomyces Boulardii (Florastor) 250 mg PO BID [facility] Last Admin: 06/25/18 17:36 Dose: 250 mg Sertraline HCl (Zoloft) 50 mg PO DAILY [facility] Last Admin: 06/25/18 09:33 Dose: 50 mg Thiamine HCl (Vitamin B1 Tab) 100 mg PO BID [facility] Last Admin: 06/25/18 17:34 Dose: 100 mg Trazodone HCl (Desyrel) 50 mg PO HS PRN PRN Reason: Insomnia Last Admin: 06/24/18 21:04 Dose: 50 mg - Labs Labs: 06/25/18 11:50 06/25/18 11:50 - Constitutional Appears: Non-toxic, No Acute Distress - Head Exam Head Exam: NORMAL INSPECTION - Eye Exam Eye Exam: EOMI - ENT Exam ENT Exam: Mucous Membranes Moist - Respiratory Exam Respiratory Exam: Clear to Ausculation Bilateral, NORMAL BREATHING PATTERN. absent: Rales, Rhonchi, Wheezes - Cardiovascular Exam Cardiovascular Exam: REGULAR RHYTHM, +S1, +S2 - GI/Abdominal Exam GI & Abdominal Exam: Soft, Normal Bowel Sounds. absent: Distended, Firm, Guarding, Rigid, Tenderness, Rebound - Extremities Exam Extremities Exam: absent: Pedal Edema, Tenderness - Neurological Exam Neurological Exam: Alert, Awake, CN II-XII Intact, Oriented x3 Neuro motor strength exam: Left Upper Extremity: 5, Right Upper Extremity: 5, Left Lower Extremity: 5, Right Lower Extremity: 5 Additional comments: Finger to nose improved Mild trace tremors bilaterally - Psychiatric Exam Psychiatric exam: Normal Affect, Normal Mood - Skin Skin Exam: Dry, Intact, Normal Color, Warm Assessment and Plan (1) Pneumonia Status: Acute (2) Alcohol intoxication Status: Acute (3) Alcohol use disorder, severe, dependence Status: Acute (4) Alcohol withdrawal Status: Acute (5) Thrombocytopenia Status: Acute (6) Prophylactic measure Status: Acute Attending/Attestation - Attestation I have personally seen and examined this patient.: Yes I have fully participated in the care of the patient.: Yes I have reviewed all pertinent clinical information, including history, physical exam and plan: Yes Notes (Text): Assessment/plan Plan: 1) Alcohol abuse, Alcohol withdrawal, Alcohol dependence Assessment/plan * CT head: No acute intracranial hemorrhage. Suspect minimal chronic periventricular white matter ischemic changes. Moderate generalized volume loss. * C/w librium taper. Patient is on day 3 of taper * Librium 25mg Q4H PRN * CIWA protocol * Thiamine 100mg PO BID * Folic acid 1 mg by mouth daily * Multivitamin 1 tab by mouth daily 2. Pleuritic chest pain Assessment/plan * Cardiac enzymes x2 negative * EKG NSR, no St-T acute waveforms * CXR PA/Lateral: R middle and lower lobe infiltrates, hypoinflation * We'll start Avelox 400 mg by mouth daily (day 2/5 course) * Will order for strep pneumonia urine, mycoplasma IgM, and legionella urine * Duonebs when necessary for shortness of breath * Note patient has had a prior cardiac workup including stress test which was unremarkable 3. Mycoplasma Pneumonia Assessment/plan * Started Avelox 400 mg PO daily (day 2/5 course) * Florastor 250 mg PO bid * Duonebs q6h prn shortness of breath 4. Schizoaffective disorder Assessment/plan * As per Psych
[2018-06-25] MEDS: guaiFENesin 600 mg ER Tab PO SCH (18:30)
[2018-06-26] MEDS: Albuterol-Ipratrop 3 mg / 0.5 (3 ml) UD INH SCH ×4 (02:04→20:40)
[2018-06-26] MEDS: Saccharomyces Boulardi 250 mg Cap PO SCH ×2 (09:54→17:29)
[2018-06-26] MEDS: Multiple Vitamins Tab PO SCH (09:55)
[2018-06-26] MEDS ORDERED: Influenza Vaccine 60 MCG/0.5 ML SYR (3 yr & up) IM ONE (10:00)
[2018-06-26] MEDS: guaiFENesin 600 mg ER Tab PO SCH ×2 (10:00→17:29)
--- NOTE | 2018-06-26 10:37 | CP.PCM.PN ---
Subjective - Date & Time of Evaluation Date of Evaluation: 06/26/18 Time of Evaluation: 10:30 - Subjective Subjective: Medical Attending Note: Patient seen and examined at bedside. Patient seen walking; denies headache, denies chest pain, reports cough, denies abdominal pain, denies nausea, denies vomitting, denies constipation, denies diarrhea. Patient reporting pleuritic chest pain; I did indicate to him given his alcohol history I did not feel comfortable starting an NSAID on him to reduce risk of any ulcer. Objective - Vital Signs/Intake and Output Vital Signs (last 24 hours): Temp Pulse Resp BP Pulse Ox 97.6 F 88 20 141/92 H 97 06/26/18 06:00 06/26/18 06:00 06/26/18 06:00 06/26/18 06:00 06/26/18 06:00 - Medications Medications: Current Medications Acetaminophen (Tylenol 325mg Tab) 650 mg PO Q6 PRN PRN Reason: Pain, moderate (4-7) Last Admin: 06/26/18 09:53 Dose: 650 mg Al Hydrox/Mg Hydrox/Simethicone (Maalox 30 Ml) 30 ml PO Q6 PRN PRN Reason: Indigestion / Heartburn Last Admin: 06/23/18 09:45 Dose: 30 ml Albuterol/Ipratropium (Duoneb 3 Mg/0.5 Mg (3 Ml) Ud) 3 ml INH RQ6 ANNETTE Last Admin: 06/26/18 09:12 Dose: 3 ml Chlordiazepoxide (Librium) 25 mg PO Q4H PRN PRN Reason: Alcohol Withdrawal Last Admin: 06/24/18 09:30 Dose: 25 mg Chlordiazepoxide (Librium) 50 mg PO Q8H [facility]; Taper Stop: 06/27/18 17:59 Last Admin: 06/26/18 09:54 Dose: 50 mg Clonidine HCl (Catapres) 0.1 mg PO Q4H PRN PRN Reason: Symptoms of alcohol withdrawl Last Admin: 06/26/18 06:38 Dose: 0.1 mg Folic Acid (Folic Acid) 1 mg PO DAILY [facility] Last Admin: 06/26/18 09:54 Dose: 1 mg Guaifenesin (Mucinex La) 600 mg PO BID [facility] Last Admin: 06/26/18 10:00 Dose: 600 mg Moxifloxacin HCl (Avelox) 400 mg PO DAILY [facility]; Protocol Last Admin: 06/26/18 09:54 Dose: 400 mg Multivitamins (Hexavitamin) 1 tab PO DAILY [facility] Last Admin: 06/26/18 09:55 Dose: 1 tab Olanzapine (Zyprexa) 5 mg PO BID [facility] Last Admin: 06/26/18 09:54 Dose: 5 mg Saccharomyces Boulardii (Florastor) 250 mg PO BID [facility] Last Admin: 06/26/18 09:54 Dose: 250 mg Sertraline HCl (Zoloft) 50 mg PO DAILY [facility] Last Admin: 06/26/18 09:54 Dose: 50 mg Thiamine HCl (Vitamin B1 Tab) 100 mg PO BID [facility] Last Admin: 06/26/18 09:54 Dose: 100 mg Trazodone HCl (Desyrel) 50 mg PO HS PRN PRN Reason: Insomnia Last Admin: 06/25/18 21:08 Dose: 50 mg - Labs Labs: 06/25/18 11:50 06/25/18 11:50 - Constitutional Appears: Non-toxic, No Acute Distress - Head Exam Head Exam: NORMAL INSPECTION - Eye Exam Eye Exam: EOMI - ENT Exam ENT Exam: Mucous Membranes Moist - Respiratory Exam Respiratory Exam: Clear to Ausculation Bilateral, NORMAL BREATHING PATTERN. absent: Rales, Rhonchi, Wheezes - Cardiovascular Exam Cardiovascular Exam: REGULAR RHYTHM, +S1, +S2 - GI/Abdominal Exam GI & Abdominal Exam: Soft, Normal Bowel Sounds. absent: Distended, Firm, Guarding, Rigid, Tenderness, Rebound - Extremities Exam Extremities Exam: absent: Pedal Edema, Tenderness - Neurological Exam Neurological Exam: Alert, Awake, Oriented x3 - Skin Skin Exam: Dry, Intact, Normal Color, Warm Assessment and Plan (1) Pneumonia Status: Acute (2) Alcohol intoxication Status: Acute (3) Alcohol use disorder, severe, dependence Status: Acute (4) Alcohol withdrawal Status: Acute (5) Thrombocytopenia Status: Acute (6) Prophylactic measure Status: Acute Attending/Attestation - Attestation I have personally seen and examined this patient.: Yes I have fully participated in the care of the patient.: Yes I have reviewed all pertinent clinical information, including history, physical exam and plan: Yes Notes (Text): 1) Alcohol abuse, Alcohol withdrawal, Alcohol dependence Assessment/plan * CT head: No acute intracranial hemorrhage. Suspect minimal chronic periventricular white matter ischemic changes. Moderate generalized volume loss. * C/w librium taper. Patient is on day 4 of taper * Librium 25mg Q4H PRN * CIWA protocol * Thiamine 100mg PO BID * Folic acid 1 mg by mouth daily * Multivitamin 1 tab by mouth daily 2. Pleuritic chest pain Assessment/plan * Cardiac enzymes x2 negative * EKG NSR, no St-T acute waveforms * CXR PA/Lateral: R middle and lower lobe infiltrates, hypoinflation * continue Avelox 400 mg by mouth daily (day 3/5 course) * Patient is Mycoplasma pneumonia IgM positive * Duonebs when necessary for shortness of breath * Note patient has had a prior cardiac workup including stress test which was unremarkable 3. Mycoplasma Pneumonia Assessment/plan * Started Avelox 400 mg PO daily (day 3/5 course) * Florastor 250 mg PO bid * Duonebs q6h prn shortness of breath 4. Schizoaffective disorder Assessment/plan * As per Psych Patient is medically stable from medicine standpoint. Patient to complete 2 more days of Avelox to cover of Mycoplasma pneumonia. Patient recommended to stop his alcohol use; referral to social work associate. Medicine to sign off. Please reconsult if needed. Thank you.
[2018-06-26 11:43] LABS: BASO % 0.8 % (0.0-2.0); EOS # 0.2 K/uL (0.0-0.7); EOS % 2.5 % (0.0-4.0); HEMOGLOBIN 12.3 g/dL (12.0-18.0); LYMPH # 1.8 K/uL (1.0-4.3); LYMPH % 28.5 % (20.0-40.0); MEAN PLATELET VOLUME 7.8 fL (7.2-11.7); MONO # 0.5 K/uL (0.0-0.8); NEUT # 3.8 K/uL (1.8-7.0); NEUT % 60.2 % (50.0-75.0); NRBC % 0.1 % (0.0-2.0); RBC 3.98 Mil/uL (4.40-5.90); RED CELL DISTRIBUTION WIDTH 17.8 % (11.5-14.5); WHITE BLOOD COUNT 6.2 K/uL (4.8-10.8)
[2018-06-26 12:03] LABS: ALB/GLOB RATIO 1.2 (1.0-2.1); ALBUMIN 4.3 g/dL (3.5-5.0); ALT/SGPT 39 U/L (21-72); AST/SGOT 29 U/L (17-59); BLOOD UREA NITROGEN 15 mg/dL (9-20); CALCIUM 9.3 mg/dl (8.6-10.4); GFR NON-AFRICAN AMERICAN > 60
--- NOTE | 2018-06-26 21:07 | PCM.PYCHPN ---
Psychiatric Progress Note - Psychiatric Progress Note Patient seen today, length of contact: 15 min Patient Chief Complaint: My chest still hurts. Problems Identified/Issues Discussed: Patient seen, chart reviewed, case discussed with the staff. Issues related to illness and treatment were discussed with the patient and staff. Reported compliant with treatment with no adverse affects. Tolerating treatment very well. Patient reported feeling little better with the treatment. Reported his chest still hurts. And also sleep less. Calm and cooperative. Awake, alert and oriented 3. No psychomotor activity, good eye contact, memory intact. Aftercare discussed with the patient. Denied any delusions, auditory or visual hallucinations, suicidal ideations or homicidal ideations at the time of evaluation. Diagnostic Results: Reviewed DSM 5 Symptoms Update: Some improvement with treatment Medication Change: No Medical Record Reviewed: Yes Consults ordered or reviewed: Reviewed Mental Status Examination - Cognitive Function Orientation: Person, Place, Situation, Time Memory: Intact Attention: WNL Concentration: WNL Association: WNL Fund of Knowledge: WN Decription of patient's judgement and insights: Fair - Mood Mood: Depressed, Anxious - Affect Affect: Depressed - Speech Speech: Soft - Formal Thought Process Formal Thought Process: No Impairment Psychotic Thoughts and Behaviors: None - Suicidal Ideation Suicidal Ideation: No - Homicidal Ideation Homicidal Ideation: No Goal/Treatment Plan - Goal/Treatment Plan Need for Continued Stay: Remain at risks for inpatient hospitalization, Discharge may exacerbated symptoms, Severe functional impairment Progress Toward Problem(s) and Goals/Treatment Plan: Patient education. Supportive therapy. CBT for relapse prevention. [place] for abstinence. Continue treatment as before. [facility] after discharge from the hospital. Estimated Date of D/C: 06/27/18 - Smoking Cessation Smoking Cessation Initiated: No
[2018-06-27] MEDS: Albuterol-Ipratrop 3 mg / 0.5 (3 ml) UD INH SCH ×3 (02:20→20:05)
[2018-06-27] MEDS: guaiFENesin 600 mg ER Tab PO SCH ×2 (10:32→17:12)
[2018-06-27] MEDS: Multiple Vitamins Tab PO SCH (10:32)
[2018-06-27] MEDS: Saccharomyces Boulardi 250 mg Cap PO SCH ×2 (10:32→17:12)
--- NOTE | 2018-06-27 11:11 | PCM.PYCHPN ---
Psychiatric Progress Note - Psychiatric Progress Note Patient seen today, length of contact: 15 min Patient Chief Complaint: I was feeling depressed and I m seeing things.' Problems Identified/Issues Discussed: Patient seen and evaluated, chart reviewed and discussed with the nurse. Per staff, yesterday pt became increasingly disorganized. As a result medicine was consulted. Pt reports depressed mood, and reports feelings of hopelessness and helplessness. Pt remained disorganized and internally preoccupied. He remained isolated and withdrawn, and confined to his room. Patient reports of withdrawal symptoms including abdominal cramps, anxiety, headaches and sweating. Patient is compliant with medications and denies any side effects. Symptoms are improving but pt needs more time to stabilize. Support and psychoeducation given. Medication Change: No Medical Record Reviewed: Yes Mental Status Examination - Cognitive Function Orientation: Person, Place, Situation, Time Memory: Intact Attention: WNL Concentration: WNL Association: WNL Fund of Knowledge: WNL - Mood Mood: Depressed, Anxious - Affect Affect: Depressed - Speech Speech: Soft - Formal Thought Process Formal Thought Process: No Impairment - Suicidal Ideation Suicidal Ideation: No - Homicidal Ideation Homicidal Ideation: No Goal/Treatment Plan - Goal/Treatment Plan Need for Continued Stay: Remain at risks for inpatient hospitalization, Discharge may exacerbated symptoms, Severe functional impairment Progress Toward Problem(s) and Goals/Treatment Plan: Schizoaffective d/o - depressed Alcohol withdrawal Alcohol use d/o - severe Librium taper Folic acid, MVI, thiamine for alcohol withdrawal As needed medications All risks, benefits and alternatives of medications, including no medications, discussed and the patient understood and agreed. Supportive therapy and psychoeducation [place] for abstinence Encourage MAT (antabuse, naltrexone), rehab or IOP Attend self-help groups as well Zoloft for depression Trazodone for sleep CBT and support Start Olanzapine 5 mg PO BID Estimated Date of D/C: 06/27/18
[2018-06-27] MEDS: Aluminum Hydroxide/Magnesium Hydroxide Susp (30 mL) PO PRN (14:42)
[2018-06-28] MEDS: Albuterol-Ipratrop 3 mg / 0.5 (3 ml) UD INH SCH ×3 (02:17→13:36)
[2018-06-28 06:39] VITALS: O2SAT 97
[2018-06-28] MEDS: Saccharomyces Boulardi 250 mg Cap PO SCH ×2 (09:28→17:32)
[2018-06-28] MEDS: guaiFENesin 600 mg ER Tab PO SCH ×2 (09:29→17:33)
[2018-06-28] MEDS: Multiple Vitamins Tab PO SCH (09:29)
[2018-06-29] MEDS: Albuterol-Ipratrop 3 mg / 0.5 (3 ml) UD INH SCH ×2 (09:00→20:10)
[2018-06-29] MEDS: Multiple Vitamins Tab PO SCH (09:39)
[2018-06-29] MEDS: Saccharomyces Boulardi 250 mg Cap PO SCH ×2 (09:39→17:21)
[2018-06-29] MEDS: guaiFENesin 600 mg ER Tab PO SCH ×2 (09:40→17:21)
--- NOTE | 2018-06-29 09:56 | PCM.BM ---
Treatment Plan Problems - Problems identified on initial assessmt Alcohol abuse Date Initiated: 06/21/18 Time Initiated: 06:08 Assessment reference: NA Status: Active Paranoid behavior Date Initiated: 06/21/18 Time Initiated: 06:09 Assessment reference: NA Status: Active Treatment assets and liabiliti Patient Assests: cooperative, ADL independent, negotiates basic needs, cognitively intact Patient Liabilities: poor support system, substance abuse - Milieu Protocol Maintain good personal hygiene: daily Encourage regular showers, daily Remind patient to perform daily oral care, daily Assist patient to perform ADL's Maintain personal safety: every shift Educate patient to report safety concerns to staff, every shift Monitor environment for contraband/sharps Medication safety: Monitor for expected outcome, potential side effects: every shift, Assess barriers to learning: every shift, Assess readiness for medication education: every shift Milieu Narrative: Schizoaffective d/o - depressed Alcohol withdrawal Alcohol use d/o - severe Librium taper Folic acid, MVI, thiamine for alcohol withdrawal As needed medications All risks, benefits and alternatives of medications, including no medications, discussed and the patient understood and agreed. Supportive therapy and psychoeducation [place] for abstinence Encourage MAT (antabuse, naltrexone), rehab or IOP Attend self-help groups as well Zoloft for depression Trazodone for sleep CBT and support Start Olanzapine 5 mg PO BID Family Contact Family involvement: Kristy/SO not involved - Goals for Treatment Patient goals for treatment: "I want an outpatient program." Discharge/Continuing Care - Education Needs Education Needs: Patient Medication, Patient Coping Skills - Discharge Discharge Criteria: Tolerates medication w/o severe side effects, No longer exhibiting s/s of withdrawal, Reduction of target symptoms Discharge to:: Snf - Treatment Team Participation Patient/Family/SO Statement: Schizoaffective d/o - depressed Alcohol withdrawal Alcohol use d/o - severe Librium taper Folic acid, MVI, thiamine for alcohol withdrawal As needed medications All risks, benefits and alternatives of medications, including no medications, discussed and the patient understood and agreed. Supportive therapy and psychoeducation [place] for abstinence Encourage MAT (antabuse, naltrexone), rehab or IOP Attend self-help groups as well Zoloft for depression Trazodone for sleep CBT and support Start Olanzapine 5 mg PO BID Discussed with Family/SO: No Was Patient/Family/SO present at Treatment Team Meeting: Yes Treatment Plan Review - Problem Alcohol abuse Date Initiated: 06/30/18 Time Initiated: 09:32 Progress toward outcomes: improved Paranoid behavior Date Initiated: 06/30/18 Time Initiated: 09:33 Progress toward outcomes: resolved - Discharge / Continuing Care Discharge to:: Home Behavioral Health Services: Intensive Outpatient Health Needs: Medications/Rx, Alcohol/Drug treatment
[2018-06-30] MEDS: Albuterol-Ipratrop 3 mg / 0.5 (3 ml) UD INH SCH ×5 (03:06→19:45)
[2018-06-30] MEDS: Multiple Vitamins Tab PO SCH (09:50)
[2018-06-30] MEDS: Saccharomyces Boulardi 250 mg Cap PO SCH ×2 (09:51→17:47)
[2018-06-30] MEDS: guaiFENesin 600 mg ER Tab PO SCH ×2 (09:51→17:46)
--- NOTE | 2018-06-30 14:03 | CT ---
Date of service: 06/30/18 CT chest without IV contrast Indication: Pleuritic chest pain Technique: Contiguous axial images were obtained through the chest without intravenous contrast enhancement. Sagittal and coronal reconstructions were generated and reviewed. This CT exam was performed using 1 or more of the following dose reduction techniques: Automated exposure control, adjustment of the MAA and/or kV according to patient size, and/or use of iterative reconstruction technique. Radiation dose (DLP): 447.92 MGy-cm. Comparison: Chest x-ray performed 06/24/18 Findings: 7 mm hypodense nodule, left lower pole thyroid gland. The unenhanced mediastinal and hilar vascular structures appear grossly unremarkable. The heart appears within normal limits of size. Mild patchy opacities are noted involving the right middle lobe, right lower lobe, lingula, and left lower lobe. No focal consolidation. No pleural effusion. No pneumothorax. Limited visualization of the noncontrast upper abdomen appears grossly unremarkable. Mild degenerative changes. Impression: Mild patchy opacities are noted involving the right middle lobe, right lower lobe, lingula, and left lower lobe. Atelectasis favored. Mild infiltrate is not excluded. Correlate clinically. 7 mm hypodense nodule, left lower pole thyroid gland. Nonemergent thyroid ultrasound may be considered for further evaluation.
--- NOTE | 2018-06-30 23:59 | CP.PCM.PN ---
Subjective - Date & Time of Evaluation Date of Evaluation: 06/30/18 Time of Evaluation: 07:00 - Subjective Subjective: House doctor note: Recieved a call for pleuritic chest pain. CT chest was obtained which showed the following: Mild patchy opacities are noted involving the right middle lobe, right lower lobe, lingula, and left lower lobe. Atelectasis favored. Mild infiltrate is not excluded. Correlate clinically. 7 mm hypodense nodule, left lower pole thyroid gland. Nonemergent thyroid ultrasound may be considered for further evaluation. (see full report) Patient completed a 5 day course of Avolox for pneumonia on 06/28. Pneumonia may take time to resolve. No additional management at this time. Please re-consult as needed. Objective - Vital Signs/Intake and Output Vital Signs (last 24 hours): Temp Pulse Resp BP Pulse Ox 97.5 F L 90 20 124/84 97 06/30/18 06:00 06/30/18 16:13 06/30/18 06:00 06/30/18 16:13 06/30/18 06:00 - Medications Medications: Current Medications Acetaminophen (Tylenol 325mg Tab) 650 mg PO Q6 PRN PRN Reason: Pain, moderate (4-7) Last Admin: 06/30/18 21:43 Dose: 650 mg Al Hydrox/Mg Hydrox/Simethicone (Maalox 30 Ml) 30 ml PO Q6 PRN PRN Reason: Indigestion / Heartburn Last Admin: 06/27/18 14:42 Dose: 30 ml Albuterol/Ipratropium (Duoneb 3 Mg/0.5 Mg (3 Ml) Ud) 3 ml INH RQ6 ANNETTE Last Admin: 06/30/18 19:45 Dose: Not Given Clonidine HCl (Catapres) 0.1 mg PO Q4H PRN PRN Reason: Symptoms of alcohol withdrawl Last Admin: 06/30/18 03:17 Dose: 0.1 mg Folic Acid (Folic Acid) 1 mg PO DAILY [facility] Last Admin: 06/30/18 09:51 Dose: 1 mg Guaifenesin (Mucinex La) 600 mg PO BID [facility] Last Admin: 06/30/18 17:46 Dose: 600 mg Multivitamins (Hexavitamin) 1 tab PO DAILY [facility] Last Admin: 06/30/18 09:50 Dose: 1 tab Olanzapine (Zyprexa) 5 mg PO BID [facility] Last Admin: 06/30/18 17:46 Dose: 5 mg Saccharomyces Boulardii (Florastor) 250 mg PO BID [facility] Last Admin: 06/30/18 17:47 Dose: 250 mg Sertraline HCl (Zoloft) 50 mg PO DAILY [facility] Last Admin: 06/30/18 09:51 Dose: 50 mg Thiamine HCl (Vitamin B1 Tab) 100 mg PO BID [facility] Last Admin: 06/30/18 17:46 Dose: 100 mg Trazodone HCl (Desyrel) 50 mg PO HS PRN PRN Reason: Insomnia Last Admin: 06/30/18 21:45 Dose: 50 mg - Labs Labs: 06/26/18 11:37 06/26/18 11:37
[2018-07-01] MEDS: Albuterol-Ipratrop 3 mg / 0.5 (3 ml) UD INH SCH ×2 (01:49→09:24)
--- NOTE | 2018-07-01 06:24 | PCM.PYCHPN ---
Psychiatric Progress Note - Psychiatric Progress Note Patient seen today, length of contact: 15 min Patient Chief Complaint: I m feeling better.' Problems Identified/Issues Discussed: Patient seen and evaluated, chart reviewed and discussed with the nurse. Pt reports improvement in his mood and paranoia. Pt appears more organized and less internally preoccupied. He remained isolated and withdrawn, and confined to his room. Patient reports improvement in withdrawal symptoms. Patient is compliant with medications and denies any side effects. Symptoms are improving but pt needs more time to stabilize. Support and psychoeducation given. Medication Change: No Medical Record Reviewed: Yes Mental Status Examination - Cognitive Function Orientation: Person, Place, Situation, Time Memory: Intact Attention: WNL Concentration: WNL Association: WNL Fund of Knowledge: WNL - Mood Mood: Depressed, Anxious - Affect Affect: Depressed - Speech Speech: Soft - Formal Thought Process Formal Thought Process: No Impairment - Suicidal Ideation Suicidal Ideation: No - Homicidal Ideation Homicidal Ideation: No Goal/Treatment Plan - Goal/Treatment Plan Need for Continued Stay: Remain at risks for inpatient hospitalization, Discharge may exacerbated symptoms, Severe functional impairment Progress Toward Problem(s) and Goals/Treatment Plan: Schizoaffective d/o - depressed Alcohol withdrawal Alcohol use d/o - severe Librium taper Folic acid, MVI, thiamine for alcohol withdrawal As needed medications All risks, benefits and alternatives of medications, including no medications, discussed and the patient understood and agreed. Supportive therapy and psychoeducation [place] for abstinence Encourage MAT (antabuse, naltrexone), rehab or IOP Attend self-help groups as well Zoloft for depression Trazodone for sleep CBT and support Start Olanzapine 5 mg PO BID Estimated Date of D/C: 06/27/18
--- NOTE | 2018-07-01 06:25 | PCM.PYCHPN ---
Psychiatric Progress Note - Psychiatric Progress Note Patient seen today, length of contact: 15 min Patient Chief Complaint: I m feeling depressed ' Problems Identified/Issues Discussed: Patient seen and evaluated, chart reviewed and discussed with the nurse. Per staff, yesterday pt became increasingly disorganized. As a result medicine was consulted. Pt reports depressed mood, and reports feelings of hopelessness and helplessness. Pt remained disorganized and internally preoccupied. He remained isolated and withdrawn, and confined to his room. Patient reports of withdrawal symptoms including abdominal cramps, anxiety, headaches and sweating. Patient is compliant with medications and denies any side effects. Symptoms are improving but pt needs more time to stabilize. Support and psychoeducation given. Medication Change: No Medical Record Reviewed: Yes Mental Status Examination - Cognitive Function Orientation: Person, Place, Situation, Time Memory: Intact Attention: WNL Concentration: WNL Association: WNL Fund of Knowledge: WNL - Mood Mood: Depressed, Anxious - Affect Affect: Depressed - Speech Speech: Soft - Formal Thought Process Formal Thought Process: No Impairment - Suicidal Ideation Suicidal Ideation: No - Homicidal Ideation Homicidal Ideation: No Goal/Treatment Plan - Goal/Treatment Plan Need for Continued Stay: Remain at risks for inpatient hospitalization, Discharge may exacerbated symptoms, Severe functional impairment Progress Toward Problem(s) and Goals/Treatment Plan: Schizoaffective d/o - depressed Alcohol withdrawal Alcohol use d/o - severe Librium taper Folic acid, MVI, thiamine for alcohol withdrawal As needed medications All risks, benefits and alternatives of medications, including no medications, discussed and the patient understood and agreed. Supportive therapy and psychoeducation NV for abstinence Encourage MAT (antabuse, naltrexone), rehab or IOP Attend self-help groups as well Zoloft for depression Trazodone for sleep CBT and support Start Olanzapine 5 mg PO BID Estimated Date of D/C: 06/27/18
[2018-07-01 07:00] VITALS: RESP 18
[2018-07-01] MEDS: Multiple Vitamins Tab PO SCH (09:14)
[2018-07-01] MEDS: Saccharomyces Boulardi 250 mg Cap PO SCH ×2 (09:14→17:29)
[2018-07-01] MEDS: guaiFENesin 600 mg ER Tab PO SCH ×2 (09:14→17:29)
[2018-07-02] MEDS: Albuterol-Ipratrop 3 mg / 0.5 (3 ml) UD INH SCH (06:34)
[2018-07-02 06:43] VITALS: BP 100/64; PULSE 82; TEMP 97.6
[2018-07-02] MEDS: Multiple Vitamins Tab PO SCH (09:03)
[2018-07-02] MEDS: Saccharomyces Boulardi 250 mg Cap PO SCH (09:03)
[2018-07-02] MEDS: guaiFENesin 600 mg ER Tab PO SCH (09:03)
[2018-07-02 11:15] LABS: BASO # 0.1 K/uL (0.0-0.2); BASO % 2.3 % (0.0-2.0); EOS # 0.2 K/uL (0.0-0.7); EOS % 3.1 % (0.0-4.0); HEMOGLOBIN 12.9 g/dL (12.0-18.0); LYMPH # 1.8 K/uL (1.0-4.3); LYMPH % 33.9 % (20.0-40.0); MEAN CORPUSCULAR HEMOGLOBIN 30.4 pg (27.0-31.0); MEAN CORPUSCULAR HGB CONC 33.7 g/dL (33.0-37.0); MEAN PLATELET VOLUME 7.4 fL (7.2-11.7); MONO # 0.5 K/uL (0.0-0.8); MONO % 9.9 % (0.0-10.0); NEUT # 2.7 K/uL (1.8-7.0); NEUT % 50.8 % (50.0-75.0); NRBC % 0.1 % (0.0-2.0); RBC 4.24 Mil/uL (4.40-5.90); RED CELL DISTRIBUTION WIDTH 17.5 % (11.5-14.5); WHITE BLOOD COUNT 5.2 K/uL (4.8-10.8)
[2018-07-02 11:19] LABS: MEAN CELL VOLUME 90.2 fL (80.0-94.0)
[2018-07-02 11:51] LABS: BLOOD UREA NITROGEN 23 mg/dL (9-20); GFR NON-AFRICAN AMERICAN > 60
[2018-07-02 11:52] LABS: ALB/GLOB RATIO 1.1 (1.0-2.1); ALBUMIN 4.3 g/dL (3.5-5.0); ALT/SGPT 39 U/L (21-72); AST/SGOT 46 U/L (17-59); CALCIUM 9.6 mg/dl (8.6-10.4)
--- NOTE | 2018-07-02 13:03 | PCM.PYCHDC ---
Mental Status Examination - Mental Status Examination Orientation: Person, Place, Situation, Time Memory: Intact Mood: Neutral Affect: Constricted Speech: Soft Attention: WNL Concentration: WNL Association: WNL Fund of Knowledge: WNL Formal Thought Process: No Impairment Description of patient's judgement and insight: good, fair Psychotic Thoughts and Behaviors: denies any AVH Suicidal Ideation: No Current Homicidal Ideation?: No Discharge Summary - Discharge Note Reason for Hospitalization: he pt is seen, chart reviewed, case discussed. He is known from many previous admissions. He is known from previous consults and admissions. He is a poor historian. The patient is a 53 year old -[place] male, w two adult children, ex-cook, homeless, BIBA to [facility] due to feeling depressed and feeling paranoid. He did not take his medication after being discharged last week and also relapsed on alcohol again. He minimizes his use and says he only drinks "one, maybe two beers." He often goes into DTs but today he was AOx3 and calm. However, due to his wdw sxs he was started on librium taper in ER already. The patient was previously hospitalized at [facility] in [place], for mental health issues. The patient was also hospitalized at [facility] few times. He is depressed and paranoid, hearing voices occasionally. The patient was prescribed Risperdal, Seroquel, Zoloft and Gabapentin in the past. The patient denies any other substance use. He admits to not following with any psych clinic and didn't fill his meds after discharge. Past psych hx: 5+ admissions. No suicide attempt, drinks more than 20 years, denies drugs/cigarettes Medical hx: GI issues, fractured wrist (better now) Laboratory Data: Abnormal Lab Results 07/02/18 07/02/18 11:09 11:09 WBC 5.2 RBC 4.24 L Hgb 12.9 Hct 38.3 MCV 90.2 D MCH 30.4 MCHC 33.7 RDW 17.5 H Plt Count 114 L D MPV 7.4 Neut % (Auto) 50.8 Lymph % (Auto) 33.9 Craig % (Auto) 9.9 Eos % (Auto) 3.1 Baso % (Auto) 2.3 H Neut # (Auto) 2.7 Lymph # (Auto) 1.8 Craig # (Auto) 0.5 Eos # (Auto) 0.2 Baso # (Auto) 0.1 Sodium 140 Potassium 4.1 Chloride 101 Carbon Dioxide 24 Anion Gap 19 BUN 23 H Creatinine 0.7 L Est GFR ( Amer) > 60 Est GFR (Non-Af Amer) > 60 Random Glucose 175 H Calcium 9.6 Phosphorus 4.2 Magnesium 1.9 Total Bilirubin 0.4 AST 46 ALT 39 Alkaline Phosphatase 111 Total Protein 8.1 Albumin 4.3 Globulin 3.8 Albumin/Globulin Ratio 1.1 Consultations:: List each consultation separately and include: 1. Reason for request. 2. Findings. 3. Follow-up Summary of Hospital Course include:: 1. Description of specific treatment plan utilized for patients during their course of treatmen. 2. Summarize the time- course for resolution of acute symptoms and/or regressed behaviors. 3. Describe issues identified and worked on during hospitalization. 4. Describe medication utilized. 5. Describe medical problems identified and treated. 6. Reassessment of suicide risk Summary of Hospital Course: During the course of his stay, patient (pt) started progressively improving and no longer remained irritable, depressed, and suicidal. Pt showed a very good response with the medications. His mood and anxiety were improved and he started attending groups and meetings and started socializing. Patient denied any feelings of hopelessness, helplessness, and worthlessness, denied any problem with the sleep or appetite, denied suicidal ideation or homicidal ideation. Pt denied any auditory or visual hallucinations. He denied any withdrawal symptoms. Pt was treated with medications along with supportive therapy, milieu therapy and group therapy. Some changes were made in his current medications and patient was discharged on following medications. He tolerated these medications very well and denied any side effects. - Diagnosis (1) Schizoaffective disorder Status: Acute (2) Alcohol use disorder, severe, dependence Status: Acute - Final Diagnosis (DSM 5) Condition upon Discharge: FAIR DSM 5: Schizoaffective d/o - depressed Alcohol withdrawal Alcohol use d/o - severe Disposition: HOME/ ROUTINE Follow-up Treatment Plan: Followup: He was discharged to the [facility]. Education: Pt was educated and counseled about the risks and benefits of taking and not taking medications. Pt was educated and counseled about the risks of drinking and abusing drugs. Pt was educated and counseled to go to the ER or call 911 if pt develop suicidal ideation or homicidal ideation, worsening of symptoms or severe side effects of the meds. Prescriptions/Medication Reconciliation: Olanzapine [Zyprexa] 5 mg PO BID #60 tablet Sertraline [Zoloft] 50 mg PO DAILY #30 tab traZODone [Desyrel] 50 mg PO HS PRN #30 tab PRN Reason: Insomnia - Smoking Cessation Smoking Cessation Medication prescribed: No - Antipsychotic Medications Pt discharged on 2 or more routine antipsychotic medications: No
== END 2018-07-02 14:04 | disposition home or self-care (01) | DRG 885 ==
LOC: C.ER 19:37 → C.5E 06-21 04:28
PROVIDERS: ADMIT Psychiatry & Neurology Psychiatry; ATTEND Psychiatry & Neurology Psychiatry
DX: F25.9 Schizoaffective disorder, unspecified (principal); F10.231 Alcohol dependence with withdrawal delirium; I10 Essential (primary) hypertension; D69.6 Thrombocytopenia, unspecified; Z86.11 Personal history of tuberculosis; Z87.891 Personal history of nicotine dependence; Z59.0 Homelessness; F41.9 Anxiety disorder, unspecified

== ENCOUNTER 2018-07-18 18:55 | Emergency (ER) | payer MEDICAID, OTHER ==
[2018-07-18 18:55] VITALS: BMI 26.5
--- NOTE | 2018-07-18 19:47 | C.PDOC ---
History Of Present Illness 53 year old male brought in via EMS after being found intoxicated in public. Patient is arousable to light stimuli, admits to drinking today. Denies drug use. Patient is a poor historian. Time Seen by Provider: 07/18/18 19:22 Chief Complaint (Nursing): Substance Abuse History Per: Patient, EMS History/Exam Limitations: no limitations Onset/Duration Of Symptoms: Hrs Current Symptoms Are (Timing): Still Present Suicide/Self Injury Attempted (Context): None Modifying Factor(s): Alcohol Associated Symptoms: denies: Depression, Suicidal Thoughts Involuntary Hold By: None Recent travel outside of the [place]: No Past Medical History Reviewed: Historical Data, Nursing Documentation, Vital Signs Vital Signs: Last Vital Signs Temp 98.1 F 07/18/18 19:03 Pulse 82 07/18/18 19:03 Resp 18 07/18/18 19:03 BP 132/89 07/18/18 19:03 Pulse Ox 95 07/18/18 19:03 - Medical History PMH: Bipolar Disorder, Depression, Fractures (left wrist 4 days ago cast intact), HTN, Paranoia, Seizures Denies: Diabetes, Hepatitis, HIV, Chronic Kidney Disease, Sexually Transmitted Disease Surgical History: Hernia Repair - [facility] DETOXIFICATION SERVICES FOR SUBSTANCE ABUSE TREATMENT (05/30/18) GROUP NATIONAL INSURANCE OFFICER FOR SUBSTANCE ABUSE TREATMENT, PSYCHOEDUCATION (05/30/18) GROUP NATIONAL INSURANCE OFFICER FOR SUBSTANCE ABUSE, COGNITIVE BEHAVIORAL (05/30/18) GROUP PSYCHOTHERAPY (05/30/18) INDIV PSYCHOTHERAPY FOR SUBSTANCE ABUSE TREATMENT, SUPPORT (05/30/18) INDIV PSYCHOTHERAPY FOR SUBSTANCE ABUSE, COGNITIV BEHAVIORAL (05/30/18) INDIV PSYCHOTHERAPY FOR SUBSTANCE ABUSE, PSYCHOEDUCATION (05/30/18) INDIVIDUAL PSYCHOTHERAPY, COGNITIVE-BEHAVIORAL (05/30/18) INDIVIDUAL PSYCHOTHERAPY, SUPPORTIVE (05/30/18) MEDICATION MANAGEMENT (01/27/18) Family History: States: Unknown Family Hx - Social History Hx Tobacco Use: No (former smoker) Hx Alcohol Use: Yes Hx Substance Use: Yes - Immunization History Hx Tetanus Toxoid Vaccination: No Hx Influenza Vaccination: No Hx Pneumococcal Vaccination: No Review Of Systems Except As Marked, All Systems Reviewed And Found Negative. Constitutional: Positive for: Other (ETOH intoxication). Negative for: Fever, Chills Cardiovascular: Negative for: Chest Pain Respiratory: Negative for: Cough Physical Exam - Physical Exam Appears: Other (Interactive, Gross intoxication, No sign of injury) Skin: Normal Color, Warm, Dry Head: Atraumatic, Normacephalic Eye(s): bilateral: Normal Inspection, PERRL, EOMI Oral Mucosa: Moist Neck: Normal, No Midline Cervical Tenderness, No Paracervical Tenderness, Supple Chest: Symmetrical, No Tenderness Cardiovascular: Rhythm Regular Respiratory: Normal Breath Sounds, No Rales, No Rhonchi, No Wheezing, Other (92 on room air but increases to 95 with change of position) Gastrointestinal/Abdominal: Soft, No Tenderness Back: No CVA Tenderness Neurological/Psych: Other (Arousable to light stimuli, no focal deficits) ED Course And Treatment O2 Sat by Pulse Oximetry: 95 (Room air) Pulse Ox Interpretation: Normal Reevaluation Time: 04:41 Reassessment Condition: Improved (PT CLEAR SPEECH AND THOUGHT, STEADY GAIT. AO3, NO S/S ACUTE INTOX.) Disposition Counseled Patient/Family Regarding: Diagnosis, Need For Followup - Disposition Referrals: [facility] [Outside] [facility] [place] [facility] [Outside] Disposition: HOME/ ROUTINE Disposition Time: 04:41 Condition: IMPROVED Instructions: Alcohol Abuse and Alcoholism (DC) Forms: [facility] (Mauritanian) - Clinical Impression Clinical Impression: Alcohol intoxication - Scribe Statement The provider has reviewed the documentation as recorded by the Scribclifton James All medical record entries made by the Scribe were at my direction and personally dictated by me. I have reviewed the chart and agree that the record accurately reflects my personal performance of the history, physical exam, medical decision making, and the department course for this patient. I have also personally directed, reviewed, and agree with the discharge instructions and disposition.
[2018-07-18 22:53] VITALS: RESP 14
[2018-07-19 01:57] VITALS: BP 127/89; PULSE 83; TEMP 98.6; O2SAT 95
== END 2018-07-19 04:45 | disposition home or self-care (01) ==
LOC: C.ER 18:55
DX: F10.129 Alcohol abuse with intoxication, unspecified (principal); Y90.9 Presence of alcohol in blood, level not specified

== ENCOUNTER 2018-07-21 17:29 | Emergency (ER) | payer OTHER ==
[2018-07-21 17:29] VITALS: BMI 26.5
--- NOTE | 2018-07-21 18:16 | C.PDOC ---
History Of Present Illness 53 year old male presents to the ED BIBA for alcohol intoxication. Patient is drowsy but arousable. Denies any physical complaints, fall/trauma. Denies SI/HI. HPI limited due to patient's intoxicated condition. <Milo Tamez DO - Last Filed: 07/21/18 18:19> History Per: Patient, EMS History/Exam Limitations: intoxication Onset/Duration Of Symptoms: Hrs Current Symptoms Are (Timing): Still Present Suicide/Self Injury Attempted (Context): None Modifying Factor(s): Alcohol <Milo Tamez DO - Last Filed: 07/21/18 18:19> <Shaan Guerrero - Last Filed: 07/21/18 23:08> Time Seen by Provider: 07/21/18 17:32 Chief Complaint (Nursing): Substance Abuse Past Medical History Reviewed: Historical Data, Nursing Documentation, Vital Signs Vital Signs: Last Vital Signs Temp 97.3 F L 07/21/18 17:43 Pulse 73 07/21/18 17:43 Resp 18 07/21/18 17:43 BP 102/70 07/21/18 17:43 Pulse Ox 97 07/21/18 17:43 - Medical History PMH: Bipolar Disorder, Depression, Fractures (left wrist 4 days ago cast intact), HTN, Paranoia, Seizures Denies: Diabetes, Hepatitis, HIV, Chronic Kidney Disease, Sexually Transmitted Disease Surgical History: Hernia Repair - [facility] Procedures DETOXIFICATION SERVICES FOR SUBSTANCE ABUSE TREATMENT (05/30/18) GROUP OPTOMETRIST ASSISTANT FOR SUBSTANCE ABUSE TREATMENT, PSYCHOEDUCATION (05/30/18) GROUP OPTOMETRIST ASSISTANT FOR SUBSTANCE ABUSE, COGNITIVE BEHAVIORAL (05/30/18) GROUP PSYCHOTHERAPY (05/30/18) INDIV PSYCHOTHERAPY FOR SUBSTANCE ABUSE TREATMENT, SUPPORT (05/30/18) INDIV PSYCHOTHERAPY FOR SUBSTANCE ABUSE, COGNITIV BEHAVIORAL (05/30/18) INDIV PSYCHOTHERAPY FOR SUBSTANCE ABUSE, PSYCHOEDUCATION (05/30/18) INDIVIDUAL PSYCHOTHERAPY, COGNITIVE-BEHAVIORAL (05/30/18) INDIVIDUAL PSYCHOTHERAPY, SUPPORTIVE (05/30/18) MEDICATION MANAGEMENT (01/27/18) Family History: States: No Known Family Hx - Social History Hx Tobacco Use: No (former smoker) Hx Alcohol Use: Yes Hx Substance Use: Yes - Immunization History Hx Tetanus Toxoid Vaccination: No Hx Influenza Vaccination: No Hx Pneumococcal Vaccination: No <Dashawn BRANTLEYMilo Durbin Last Filed: 07/21/18 18:19> Vital Signs: Last Vital Signs Temp 97.6 F 07/21/18 23:06 Pulse 83 07/21/18 23:06 Resp 19 07/21/18 23:06 BP 105/85 07/21/18 23:06 Pulse Ox 97 07/21/18 23:06 - [facility] Procedures DETOXIFICATION SERVICES FOR SUBSTANCE ABUSE TREATMENT (05/30/18) GROUP OPTOMETRIST ASSISTANT FOR SUBSTANCE ABUSE TREATMENT, PSYCHOEDUCATION (05/30/18) GROUP OPTOMETRIST ASSISTANT FOR SUBSTANCE ABUSE, COGNITIVE BEHAVIORAL (05/30/18) GROUP PSYCHOTHERAPY (05/30/18) INDIV PSYCHOTHERAPY FOR SUBSTANCE ABUSE TREATMENT, SUPPORT (05/30/18) INDIV PSYCHOTHERAPY FOR SUBSTANCE ABUSE, COGNITIV BEHAVIORAL (05/30/18) INDIV PSYCHOTHERAPY FOR SUBSTANCE ABUSE, PSYCHOEDUCATION (05/30/18) INDIVIDUAL PSYCHOTHERAPY, COGNITIVE-BEHAVIORAL (05/30/18) INDIVIDUAL PSYCHOTHERAPY, SUPPORTIVE (05/30/18) MEDICATION MANAGEMENT (01/27/18) <Shaan Guerrero E - Last Filed: 07/21/18 23:08> Review Of Systems Except As Marked, All Systems Reviewed And Found Negative. (Limited due to patient's intoxication) Gastrointestinal: Negative for: Nausea, Vomiting Psych: Negative for: Suicidal ideation <Dashawn BRANTLEYMilo Durbin Filed: 07/21/18 18:19> Physical Exam - Physical Exam Appears: Non-toxic, Other (intoxicated) Skin: Warm, Dry, No Rash Head: Atraumatic, Normacephalic Eye(s): bilateral: Normal Inspection Neck: Supple Chest: Symmetrical Cardiovascular: Rhythm Regular Respiratory: Normal Breath Sounds Gastrointestinal/Abdominal: Soft, No Tenderness Neurological/Psych: Other (drowsy but arousable ) <Dashawn BRANTLEYMilo Durbin Last Filed: 07/21/18 18:19> ED Course And Treatment O2 Sat by Pulse Oximetry: 97 (RA) Pulse Ox Interpretation: Normal <Dashawn BRANTLEYMilo Durbin Filed: 07/21/18 18:19> Reevaluation Time: 23:07 Reassessment Condition: Improved (clinically sober) <Shaan Guerrero - Last Filed: 07/21/18 23:08> Medical Decision Making Medical Decision Making: Plan - Glucose POC <Milo Tamez DO - Last Filed: 07/21/18 18:19> Disposition <Milo Tamez DO - Last Filed: 07/21/18 18:19> Doctor Will See Patient In The: Office Counseled Patient/Family Regarding: Studies Performed, Diagnosis - Disposition Disposition Time: 23:07 <Shaan Guerrero - Last Filed: 07/21/18 23:08> - Disposition Disposition: HOME/ ROUTINE Condition: GOOD Forms: [facility] (Puerto Rican) - Clinical Impression Clinical Impression: Alcohol intoxication - Scribe Statement The provider has reviewed the documentation as recorded by the Scribe Marta Sherman All medical record entries made by the Scribe were at my direction and personally dictated by me. I have reviewed the chart and agree that the record accurately reflects my personal performance of the history, physical exam, medical decision making, and the department course for this patient. I have also personally directed, reviewed, and agree with the discharge instructions and disposition. <Milo Tamez DO - Last Filed: 07/21/18 18:19>
[2018-07-21 23:06] VITALS: BP 105/85; PULSE 83; RESP 19; TEMP 97.6; O2SAT 97
== END 2018-07-21 23:31 | disposition home or self-care (01) ==
LOC: C.ER 17:29
DX: F10.129 Alcohol abuse with intoxication, unspecified (principal); Y90.9 Presence of alcohol in blood, level not specified

== ENCOUNTER 2018-08-03 16:24 | Emergency (ER) | payer OTHER ==
[2018-08-03 16:24] VITALS: BMI 26.5
--- NOTE | 2018-08-03 17:20 | C.PDOC ---
History Of Present Illness 53 yo male, hx of substance abuse, presents for etoh abuse. pt well known to er for similar. no medical coplaint. <Minh Almaraz - Last Filed: 08/04/18 13:17> <Laura Garcia - Last Filed: 08/04/18 01:12> <Minh Almaraz - Last Filed: 08/04/18 13:17> Time Seen by Provider: 08/03/18 16:58 Past Medical History Vital Signs: Last Vital Signs Temp 97.8 F 08/03/18 21:01 Pulse 71 08/03/18 21:01 Resp 16 08/03/18 21:01 BP 104/70 08/03/18 21:01 Pulse Ox 97 08/03/18 21:01 - [facility] DETOXIFICATION SERVICES FOR SUBSTANCE ABUSE TREATMENT (05/30/18) GROUP TOOL GRINDER OPERATOR SURFACE FOR SUBSTANCE ABUSE TREATMENT, PSYCHOEDUCATION (05/30/18) GROUP TOOL GRINDER OPERATOR SURFACE FOR SUBSTANCE ABUSE, COGNITIVE BEHAVIORAL (05/30/18) GROUP PSYCHOTHERAPY (05/30/18) INDIV PSYCHOTHERAPY FOR SUBSTANCE ABUSE TREATMENT, SUPPORT (05/30/18) INDIV PSYCHOTHERAPY FOR SUBSTANCE ABUSE, COGNITIV BEHAVIORAL (05/30/18) INDIV PSYCHOTHERAPY FOR SUBSTANCE ABUSE, PSYCHOEDUCATION (05/30/18) INDIVIDUAL PSYCHOTHERAPY, COGNITIVE-BEHAVIORAL (05/30/18) INDIVIDUAL PSYCHOTHERAPY, SUPPORTIVE (05/30/18) MEDICATION MANAGEMENT (01/27/18) <Laura Garcia - Last Filed: 08/04/18 01:12> Reviewed: Historical Data, Nursing Documentation, Vital Signs - Medical History PMH: Bipolar Disorder, Depression, Fractures (left wrist 4 days ago cast intact), HTN, Paranoia, Seizures Denies: Diabetes, Hepatitis, HIV, Chronic Kidney Disease, Sexually Transmitted Disease Surgical History: Hernia Repair - [facility] DETOXIFICATION SERVICES FOR SUBSTANCE ABUSE TREATMENT (05/30/18) GROUP TOOL GRINDER OPERATOR SURFACE FOR SUBSTANCE ABUSE TREATMENT, PSYCHOEDUCATION (05/30/18) GROUP TOOL GRINDER OPERATOR SURFACE FOR SUBSTANCE ABUSE, COGNITIVE BEHAVIORAL (05/30/18) GROUP PSYCHOTHERAPY (05/30/18) INDIV PSYCHOTHERAPY FOR SUBSTANCE ABUSE TREATMENT, SUPPORT (05/30/18) INDIV PSYCHOTHERAPY FOR SUBSTANCE ABUSE, COGNITIV BEHAVIORAL (05/30/18) INDIV PSYCHOTHERAPY FOR SUBSTANCE ABUSE, PSYCHOEDUCATION (05/30/18) INDIVIDUAL PSYCHOTHERAPY, COGNITIVE-BEHAVIORAL (05/30/18) INDIVIDUAL PSYCHOTHERAPY, SUPPORTIVE (05/30/18) MEDICATION MANAGEMENT (01/27/18) Family History: States: Unknown Family Hx - Social History Hx Tobacco Use: No (former smoker) Hx Alcohol Use: Yes Hx Substance Use: Yes - Immunization History Hx Tetanus Toxoid Vaccination: No Hx Influenza Vaccination: No Hx Pneumococcal Vaccination: No <Minh Almaraz - Last Filed: 08/04/18 13:17> Review Of Systems Except As Marked, All Systems Reviewed And Found Negative. <Minh Almaraz - Last Filed: 08/04/18 13:17> Physical Exam - Physical Exam Appears: Well, No Acute Distress, Unkempt Skin: Normal Color, Warm, Dry Eye(s): bilateral: Normal Inspection, PERRL, EOMI Nose: Normal Throat: Normal Neck: Normal Cardiovascular: Rhythm Regular Respiratory: Normal Breath Sounds Gastrointestinal/Abdominal: Normal Exam, Soft, No Tenderness, No Guarding, No Rebound Back: Normal Inspection Extremity: Normal ROM Additional Physical Exam Comments: no ecchymosis. no brusing. <Minh Almaraz - Last Filed: 08/04/18 13:17> Medical Decision Making Medical Decision Making: At this time the patient is ambulatory with steady gait, and is clinically sober. Observation discharge care of the patient included a discussion of outpatient management including available detox programs, instructions for continuing care and preparation of the discharge records. Patient is stable for discharge and outpatient therapy and follow-up. <Laura Garcia - Last Filed: 08/04/18 01:12> Medical Decision Making: etoh abuse. well known to er. no medical complaint. case endorsed to mine shifter pending sobriety. <Minh Almaraz - Last Filed: 08/04/18 13:17> Disposition <Laura Garcia - Last Filed: 08/04/18 01:12> - Disposition Disposition Time: 07:00 <Minh Almaraz - Last Filed: 08/04/18 13:17> - Disposition Disposition: HOME/ ROUTINE Condition: GOOD Additional Instructions: return to er with worsening symptoms or concerns Instructions: Alcohol Abuse and Alcoholism (DC) Forms: [facility] (Italian) - Clinical Impression Clinical Impression: Alcohol intoxication
[2018-08-03 18:48] VITALS: RESP 16
[2018-08-03 21:01] VITALS: BP 104/70; PULSE 71; TEMP 97.8; O2SAT 97
== END 2018-08-03 23:00 | disposition home or self-care (01) ==
LOC: C.ER 16:24
DX: F10.129 Alcohol abuse with intoxication, unspecified (principal); Y90.9 Presence of alcohol in blood, level not specified

== ENCOUNTER 2018-08-18 18:48 | Emergency (ER) | payer OTHER ==
[2018-08-18 18:49] VITALS: BMI 26.5
--- NOTE | 2018-08-18 19:09 | C.PDOC ---
History Of Present Illness 53 year old male is brought into the emergency department by [facility] from a [facility] with reports that he was drinking. NO SI or HI- he notes that he isnt supposed to be drinking at the homeless [facility]. He denies any fall or trauma. He denies any GI or complaints. No fever, chills or night sweats. Patient denies any active complaints at this time. Chief Complaint (Nursing): Substance Abuse History Per: Patient History/Exam Limitations: no limitations Onset/Duration Of Symptoms: Hrs Current Symptoms Are (Timing): Still Present Suicide/Self Injury Attempted (Context): None Modifying Factor(s): Alcohol Associated Symptoms: denies: Suicidal Thoughts, Suicidal Plan Additional History Per: EMS Past Medical History Reviewed: Historical Data, Nursing Documentation, Vital Signs Vital Signs: Last Vital Signs Temp Pulse 82 08/18/18 18:56 Resp 20 08/18/18 18:56 BP 120/85 08/18/18 18:56 Pulse Ox 98 08/18/18 18:56 - Medical History PMH: Bipolar Disorder, Depression, Fractures, HTN, Paranoia, Seizures Denies: Diabetes, Hepatitis, HIV, Chronic Kidney Disease, Sexually Transmitted Disease Surgical History: Hernia Repair - [facility] Procedures DETOXIFICATION SERVICES FOR SUBSTANCE ABUSE TREATMENT (05/30/18) GROUP SUPPLY OFFICER FOR SUBSTANCE ABUSE TREATMENT, PSYCHOEDUCATION (05/30/18) GROUP SUPPLY OFFICER FOR SUBSTANCE ABUSE, COGNITIVE BEHAVIORAL (05/30/18) GROUP PSYCHOTHERAPY (05/30/18) INDIV PSYCHOTHERAPY FOR SUBSTANCE ABUSE TREATMENT, SUPPORT (05/30/18) INDIV PSYCHOTHERAPY FOR SUBSTANCE ABUSE, COGNITIV BEHAVIORAL (05/30/18) INDIV PSYCHOTHERAPY FOR SUBSTANCE ABUSE, PSYCHOEDUCATION (05/30/18) INDIVIDUAL PSYCHOTHERAPY, COGNITIVE-BEHAVIORAL (05/30/18) INDIVIDUAL PSYCHOTHERAPY, SUPPORTIVE (05/30/18) MEDICATION MANAGEMENT (01/27/18) Family History: States: No Known Family Hx - Social History Hx Tobacco Use: No (former smoker) Hx Alcohol Use: Yes (DENIES) Hx Substance Use: (DENIES) - Immunization History Hx Tetanus Toxoid Vaccination: No Hx Influenza Vaccination: No Hx Pneumococcal Vaccination: No Review Of Systems Except As Marked, All Systems Reviewed And Found Negative. Constitutional: Negative for: Fever, Chills Eyes: Negative for: Pain ENT: Negative for: Ear Pain Cardiovascular: Negative for: Chest Pain Respiratory: Negative for: Cough, SOB with Excertion Gastrointestinal: Negative for: Nausea, Vomiting, Diarrhea, Constipation, Melena Genitourinary: Negative for: Dysuria, Frequency Musculoskeletal: Negative for: Neck Pain, Shoulder Pain, Back Pain Skin: Negative for: Rash Neurological: Negative for: Weakness, Numbness, Headache Psych: Negative for: Anxiety, Depression, Suicidal ideation Physical Exam - Physical Exam Appears: Non-toxic, No Acute Distress, Other (under the influence of alcohol) Skin: Warm, Dry Head: Atraumatic, Normacephalic Eye(s): bilateral: Normal Inspection, PERRL, EOMI Nose: Normal Oral Mucosa: Moist Tongue: Normal Appearing Neck: Normal, Supple, Other (no meningeal signs) Chest: Symmetrical, No Tenderness Cardiovascular: Rhythm Regular, No Murmur Respiratory: Normal Breath Sounds, No Rales, No Rhonchi, No Wheezing Back: Normal Inspection, No CVA Tenderness Extremity: Normal ROM Extremity: Bilateral: Atraumatic, No Pedal Edema, Normal ROM Pulses: Left Radial: Normal, Right Radial: Normal, Left Dorsalis Pedis: Normal, Right Dorsalis Pedis: Normal Neurological/Psych: Oriented x3, Normal Speech, Normal Cognition, Normal Cranial Nerves, No Cerebellar Signs, Normal Motor Gait: Steady Other Neurological Findings: No Facial Palsy Extremity: Right: No Drift, Left: No Drift, Upper: No Drift, Lower: No Drift ED Course And Treatment O2 Sat by Pulse Oximetry: 98 (RA) Pulse Ox Interpretation: Normal Medical Decision Making Medical Decision Making: Well appearing 53 yr old M p/w etoh intoxicaiton. [facility]IBA EMS for drinking at homeless [facility]. No meningeal signs. Normal neuro exam. No complaints. Pending clinical sobreity. 1259 Pt was noting he had some R knee pain. no erythema. n/v intact distally. No trauma or fall. pt notes hx of arthritic knees xray negative ambulating well in NAD pain improved w/ motrin. Neuro exam remains unremarkable w/ out cerebellar signs clinically sober w/ steady gait, w/ no signs of withdrawal. clear for d/c home, pt agreeable. Disposition - Disposition Disposition Time: 01:00 Condition: GOOD Forms: [employer] [facility] (Sinhala) - Clinical Impression Clinical Impression: Knee pain, chronic, ETOH abuse - Scribe Statement The provider has reviewed the documentation as recorded by the Scribe (Israel Gustafson) Provider Attestation: All medical record entries made by the Scribe were at my direction and personally dictated by me. I have reviewed the chart and agree that the record accurately reflects my personal performance of the history, physical exam, medical decision making, and the department course for this patient. I have also personally directed, reviewed, and agree with the discharge instructions and disposition.
[2018-08-19 01:01] VITALS: O2SAT 98
[2018-08-19 01:40] VITALS: BP 118/68; PULSE 71; RESP 20; TEMP 98
--- NOTE | 2018-08-19 15:44 | RAD ---
Date of service: 08/19/2018 PROCEDURE: Left Knee Radiographs. HISTORY: Pain. COMPARISON: Comparison made with prior study 05/25/2018. FINDINGS: BONES: The current study reveals an elliptical shaped bony density seen adjacent to the posterior tibial plateau only on the lateral projection. This focus is of uncertain etiology though the possibility of a avulsion fracture from the arising from the posterior tibial plateau cannot be excluded. Follow-up CT scan of the left knee recommended for further evaluation. JOINTS: Normal. No osteoarthritis. JOINT EFFUSION: Small to medium size suprapatellar joint effusion. OTHER FINDINGS: None. IMPRESSION: There is an elliptical shaped bony density seen adjacent to the posterior tibial plateau only on the lateral projection. This focus is of uncertain etiology though the possibility of a avulsion fracture from the arising from the posterior tibial plateau cannot be excluded. Follow-up CT scan of the left knee recommended for further evaluation.. Note that this report was placed in PA review folder for followup..
== END 2018-08-19 01:39 | disposition home or self-care (01) ==
LOC: C.ER 18:48
DX: F10.10 Alcohol abuse, uncomplicated (principal); Y90.9 Presence of alcohol in blood, level not specified; M25.561 Pain in right knee

== ENCOUNTER 2018-08-19 14:45 | Emergency (ER) | payer OTHER ==
[2018-08-19 15:18] VITALS: BMI 30.6
[2018-08-19 16:29] VITALS: RESP 18; O2SAT 96
--- NOTE | 2018-08-19 17:09 | C.PDOC ---
History Of Present Illness 53 year old male is brought to the ED by EMS for public intoxication. Patient admits to drinking alcohol today, patient only responds to painful stimulus. Patient denies SI/HI, hallucinations, CP, SOB, injury, fall, trauma. Time Seen by Provider: 08/19/18 15:22 Chief Complaint (Nursing): Substance Abuse History Per: Patient, EMS History/Exam Limitations: intoxication Onset/Duration Of Symptoms: Hrs Current Symptoms Are (Timing): Still Present Suicide/Self Injury Attempted (Context): None Modifying Factor(s): Alcohol Associated Symptoms: denies: Depression, Suicidal Thoughts, Suicidal Plan Recent travel outside of the [place]: No Additional History Per: Patient, EMS Past Medical History Reviewed: Historical Data, Nursing Documentation, Vital Signs Vital Signs: Last Vital Signs Temp 97.6 F 08/19/18 16:28 Pulse 89 08/19/18 16:28 Resp 18 08/19/18 16:28 BP 111/71 08/19/18 16:28 Pulse Ox 96 08/19/18 16:28 - Medical History PMH: Bipolar Disorder, Depression, Fractures, HTN, Paranoia, Seizures Denies: Diabetes, Hepatitis, HIV, Chronic Kidney Disease, Sexually Transmitted Disease Surgical History: Hernia Repair - [facility] Procedures DETOXIFICATION SERVICES FOR SUBSTANCE ABUSE TREATMENT (05/30/18) GROUP HEMODIALYSIS PATIENT CARE SPECIALIST FOR SUBSTANCE ABUSE TREATMENT, PSYCHOEDUCATION (05/30/18) GROUP HEMODIALYSIS PATIENT CARE SPECIALIST FOR SUBSTANCE ABUSE, COGNITIVE BEHAVIORAL (05/30/18) GROUP PSYCHOTHERAPY (05/30/18) INDIV PSYCHOTHERAPY FOR SUBSTANCE ABUSE TREATMENT, SUPPORT (05/30/18) INDIV PSYCHOTHERAPY FOR SUBSTANCE ABUSE, COGNITIV BEHAVIORAL (05/30/18) INDIV PSYCHOTHERAPY FOR SUBSTANCE ABUSE, PSYCHOEDUCATION (05/30/18) INDIVIDUAL PSYCHOTHERAPY, COGNITIVE-BEHAVIORAL (05/30/18) INDIVIDUAL PSYCHOTHERAPY, SUPPORTIVE (05/30/18) MEDICATION MANAGEMENT (01/27/18) Family History: States: Unknown Family Hx - Social History Hx Tobacco Use: No (former smoker) Hx Alcohol Use: Yes Hx Substance Use: Yes - Immunization History Hx Tetanus Toxoid Vaccination: No Hx Influenza Vaccination: No Hx Pneumococcal Vaccination: No Review Of Systems Constitutional: Negative for: Fever, Chills Cardiovascular: Negative for: Chest Pain Respiratory: Negative for: Shortness of Breath Gastrointestinal: Negative for: Nausea, Vomiting, Abdominal Pain Skin: Negative for: Rash Neurological: Negative for: Headache, Dizziness Psych: Negative for: Depression, Suicidal ideation Physical Exam - Physical Exam Appears: Non-toxic, No Acute Distress, Other (AOB) Skin: Normal Color, Warm, Dry Head: Atraumatic, Normacephalic Eye(s): bilateral: Normal Inspection Neck: Normal ROM, Supple Chest: Symmetrical Cardiovascular: Rhythm Regular Respiratory: Normal Breath Sounds, No Rales, No Rhonchi, No Wheezing Gastrointestinal/Abdominal: Soft, No Tenderness, No Guarding, No Rebound Extremity: Normal ROM (all extremities ), No Tenderness, No Swelling Neurological/Psych: Oriented x3, Normal Speech, Normal Cognition, Other (reponds to painful stimuli) Gait: Steady ED Course And Treatment O2 Sat by Pulse Oximetry: 96 (ON RA) Pulse Ox Interpretation: Normal Reevaluation Time: 18:41 Reassessment Condition: Improved (clinically sober, easily arousable, conversant) Disposition Doctor Will See Patient In The: Office Counseled Patient/Family Regarding: Studies Performed, Diagnosis - Disposition Disposition: HOME/ ROUTINE Disposition Time: 18:42 Condition: GOOD Forms: [facility] (Setswana) - Clinical Impression Clinical Impression: Alcohol abuse - Scribe Statement The provider has reviewed the documentation as recorded by the Scribe Meliton Finnegan All medical record entries made by the Scribe were at my direction and personally dictated by me. I have reviewed the chart and agree that the record accurately reflects my personal performance of the history, physical exam, medical decision making, and the department course for this patient. I have also personally directed, reviewed, and agree with the discharge instructions and disposition.
[2018-08-19 18:35] VITALS: TEMP 98
[2018-08-19 20:01] VITALS: BP 121/79; PULSE 91
== END 2018-08-19 20:02 | disposition home or self-care (01) ==
LOC: C.ER 14:45
DX: F10.10 Alcohol abuse, uncomplicated (principal); I10 Essential (primary) hypertension; Z87.891 Personal history of nicotine dependence; F31.9 Bipolar disorder, unspecified

== ENCOUNTER 2018-09-22 10:23 | Emergency (ER) | payer MEDICAID, OTHER ==
[2018-09-22 10:36] VITALS: BMI 26.5
--- NOTE | 2018-09-22 11:30 | C.PDOC ---
History Of Present Illness 53 year old male presents to the ED for evaluation of dizziness and headache which began after he sustained a fall yesterday. Patient admits he was drinking last night, when he fell and hit his head. He reports questionable loss of consciousness. Patient is also complaining of left knee pain. Otherwise, he denies nausea, vomiting, neck pain, abdominal pain, and suicidal/homicidal ideation at this time. Time Seen by Provider: 09/22/18 10:38 Chief Complaint (Nursing): Substance Abuse History Per: Patient History/Exam Limitations: intoxication Onset/Duration Of Symptoms: Hrs Current Symptoms Are (Timing): Still Present Suicide/Self Injury Attempted (Context): None Modifying Factor(s): Alcohol Associated Symptoms: denies: Suicidal Thoughts, Suicidal Plan Involuntary Hold By: None Recent travel outside of the [place]: No Additional History Per: Patient Past Medical History Reviewed: Historical Data, Nursing Documentation, Vital Signs Vital Signs: Last Vital Signs Temp 97.6 F 09/22/18 10:36 Pulse 95 H 09/22/18 10:59 Resp 16 09/22/18 10:59 BP 141/91 H 09/22/18 10:36 Pulse Ox 99 09/22/18 10:59 - Medical History PMH: Bipolar Disorder, Depression, Fractures, HTN, Paranoia, Seizures Denies: Diabetes, Hepatitis, HIV, Chronic Kidney Disease, Sexually Transmit [place] Disease Surgical History: Hernia Repair - [facility] Procedures DETOXIFICATION SERVICES FOR SUBSTANCE ABUSE TREATMENT (05/30/18) GROUP GENERATING STATION MECHANIC FOR SUBSTANCE ABUSE TREATMENT, PSYCHOEDUCATION (05/30/18) GROUP GENERATING STATION MECHANIC FOR SUBSTANCE ABUSE, COGNITIVE BEHAVIORAL (05/30/18) GROUP PSYCHOTHERAPY (05/30/18) INDIV PSYCHOTHERAPY FOR SUBSTANCE ABUSE TREATMENT, SUPPORT (05/30/18) INDIV PSYCHOTHERAPY FOR SUBSTANCE ABUSE, COGNITIV BEHAVIORAL (05/30/18) INDIV PSYCHOTHERAPY FOR SUBSTANCE ABUSE, PSYCHOEDUCATION (05/30/18) INDIVIDUAL PSYCHOTHERAPY, COGNITIVE-BEHAVIORAL (05/30/18) INDIVIDUAL PSYCHOTHERAPY, SUPPORTIVE (05/30/18) MEDICATION MANAGEMENT (01/27/18) Family History: States: Unknown Family Hx - Social History Hx Tobacco Use: No (former smoker) Hx Alcohol Use: Yes Hx Substance Use: Yes - Immunization History Hx Tetanus Toxoid Vaccination: No Hx Influenza Vaccination: No Hx Pneumococcal Vaccination: No Review Of Systems Gastrointestinal: Negative for: Nausea, Vomiting, Abdominal Pain Musculoskeletal: Positive for: Other (left knee pain ). Negative for: Neck Pain Neurological: Positive for: Headache, Dizziness, Other (questionable loss of consciousness ) Psych: Positive for: Other (EtOH intoxication ) Physical Exam - Physical Exam Appears: Non-toxic, No Acute Distress, Other (visibly intoxicated ) Skin: Normal Color, Warm, Dry Head: Other (hematoma to the frontal scalp) Eye(s): bilateral: Normal Inspection, PERRL, EOMI Ear(s): Bilateral: Normal, Other (no hemotympanum) Oral Mucosa: Moist, Other (alcohol on breath ) Neck: Normal ROM, Supple Chest: Symmetrical, No Deformity, No Tenderness Cardiovascular: Rhythm Regular, No Murmur Respiratory: Normal Breath Sounds, No Rales, No Rhonchi, No Wheezing Gastrointestinal/Abdominal: Soft, No Tenderness, No Guarding, No Rebound Extremity: Normal ROM, Tenderness (mild, to anterior aspect of left knee), Capillary Refill (less than 2 seconds ), No Deformity, Swelling (mild, to anterior aspect of left knee) Pulses: Left Dorsalis Pedis: Normal, Right Dorsalis Pedis: Normal Neurological/Psych: Other (arousable to touch and verbal stimuli ) ED Course And Treatment O2 Sat by Pulse Oximetry: 99 (on RA ) Pulse Ox Interpretation: Normal - CT Scan/US CT Head Other Rad Studies (CT/US): Read By Radiologist, Radiology Report Reviewed CT/US Interpretation: Date of service: 09/22/2018. PROCEDURE: CT HEAD WITHOUT CONTRAST. HISTORY: head injury, dizziness, r/o bleed. COMPARISON: 06/23/2018. TECHNIQUE: Axial computed tomography images were obtained through the head/brain without intravenous contrast. Radiation dose: Total exam DLP = 1099.74 mGy-cm. This CT exam was performed using one or more of the following dose reduction techniques: Automated exposure control, adjustment of the mA and/or kV according to patient size, and/or use of iterative reconstruction technique. FINDINGS: HEMORRHAGE: No intracranial hemorrhage. BRAIN: No mass effect or edema. Mild moderate generalized cerebral atrophy more accentuated along the frontal lobes. No significant appearing chronic microvascular ischemic changes. VENTRICLES: Unremarkable. No hydrocephalus. CALVARIUM: Unremarkable. PARANASAL SINUSES: Unremarkable as visualized. No significant inflammatory changes. MASTOID AIR CELLS: Unremarkable as visualized. No inflammatory changes. OTHER FINDINGS: None. IMPRESSION: No intracranial hemorrhage or mass effect. Similar cerebral atrophy as above. No interval pathology noted. CT Cervical Spine Other Rad Studies (CT/US): Read By Radiologist, Radiology Report Reviewed CT/US Interpretation: Date of service: 09/22/2018. PROCEDURE: CT Cervical Spine without contrast. HISTORY: ETOH, fall, neck injury. COMPARISON: 06/16/2018. TECHNIQUE: Axial computed tomography images were obtained of the cervical spine without the use of intravenous contrast. Coronal and sagittal reformatted images were created and reviewed. Radiation dose: Total exam DLP = 409.01 mGy-cm. This CT exam was performed using one or more of the following dose reduction techniques: Automated exposure control, adjustment of the mA and/or kV according to patient size, and/or use of iterative reconstruction technique. FINDINGS: VERTEBRAE: No fracture. Normal alignment. No destructive bony lesion. Minimal endplate spondylosis C5-6 and C6-7. DISCS/SPINAL CANAL/NEURAL FORAMINA: C3-4 and C4-5 apophyseal joint hypertrophic arthrosis joint hypertrophic arthrosis-right side greater than left side.. Minimal right foraminal compromise at C4-5. No significant central canal here or elsewhere noted. Mild endplate ridging at C6-7 with minimal bilateral foraminal encr oachment here is well. Disc heights slightly narrowed C4-5 and [id number]. PARASPINAL SOFT TISSUES: Anterior C5-6 and C6-7 calcified disc material and/or residual limbus vertebrae present. OTHER FINDINGS: None. IMPRESSION: No acute fracture or subluxation seen. Degenerative changes most notable at C5-6 and C6-7. C3-4 and C4-5 apophyseal-right side greater than left side. These findings have the aforementioned effects as noted above. No high-grade central stenosis. Mild foraminal encroachments as above. No significant change compared to the 2 exams Medical Decision Making Medical Decision Making: Progress: CT Cervical Spine and CT Head ordered and reviewed. Disposition - Disposition Referrals: [facility] at [facility] [Outside] Disposition: HOME/ ROUTINE Disposition Time: 15:25 Condition: STABLE Additional Instructions: Follow up with the medical doctor within 1-2 days without fail. Return if worsened. Prescriptions: Meclizine HCl 25 mg PO TID PRN #25 tablet PRN Reason: Dizziness Forms: [facility] (Stateless) - Clinical Impression Clinical Impression: Alcohol withdrawal, Dizziness - Scribe Statement The provider has reviewed the documentation as recorded by the Scribe (Hortensia Rodriguez) All medical record entries made by the Scribe were at my direction and personally dictated by me. I have reviewed the chart and agree that the record accurately reflects my personal performance of the history, physical exam, [facility] decision making, and the department course for this patient. I have also personally directed, reviewed, and agree with the discharge instructions and disposition.
--- NOTE | 2018-09-22 12:15 | CT ---
Date of service: 09/22/2018 PROCEDURE: CT HEAD WITHOUT CONTRAST. HISTORY: head injury, dizziness, r/o bleed COMPARISON: 06/23/2018 TECHNIQUE: Axial computed tomography images were obtained through the head/brain without intravenous contrast. Radiation dose: Total exam DLP = 1099.74 mGy-cm. This CT exam was performed using one or more of the following dose reduction techniques: Automated exposure control, adjustment of the mA and/or kV according to patient size, and/or use of iterative reconstruction technique. FINDINGS: HEMORRHAGE: No intracranial hemorrhage. BRAIN: No mass effect or edema. Mild moderate generalized cerebral atrophy more accentuated along the frontal lobes. No significant appearing chronic microvascular ischemic changes. VENTRICLES: Unremarkable. No hydrocephalus. CALVARIUM: Unremarkable. PARANASAL SINUSES: Unremarkable as visualized. No significant inflammatory changes. MASTOID AIR CELLS: Unremarkable as visualized. No inflammatory changes. OTHER FINDINGS: None. IMPRESSION: No intracranial hemorrhage or mass effect. Similar cerebral atrophy as above. No interval pathology noted.
--- NOTE | 2018-09-22 12:22 | CT ---
Date of service: 09/22/2018 PROCEDURE: CT Cervical Spine without contrast HISTORY: ETOH, fall, neck injury COMPARISON: 06/16/2018 TECHNIQUE: Axial computed tomography images were obtained of the cervical spine without the use of intravenous contrast. Coronal and sagittal reformatted images were created and reviewed. Radiation dose: Total exam DLP = 409.01 mGy-cm. This CT exam was performed using one or more of the following dose reduction techniques: Automated exposure control, adjustment of the mA and/or kV according to patient size, and/or use of iterative reconstruction technique. FINDINGS: VERTEBRAE: No fracture. Normal alignment. No destructive bony lesion. Minimal endplate spondylosis C5-6 and C6-7 DISCS/SPINAL CANAL/NEURAL FORAMINA: C3-4 and C4-5 apophyseal joint hypertrophic arthrosis joint hypertrophic arthrosis-right side greater than left side.. Minimal right foraminal compromise at C4-5. No significant central canal here or elsewhere noted. Mild endplate ridging at C6-7 with minimal bilateral foraminal encroachment here is well. Disc heights slightly narrowed C4-5 and [id number]. PARASPINAL SOFT TISSUES: Anterior C5-6 and C6-7 calcified disc material and/or residual limbus vertebrae present OTHER FINDINGS: None. IMPRESSION: No acute fracture or subluxation seen. Degenerative changes most notable at C5-6 and C6-7. C3-4 and C4-5 apophyseal-right side greater than left side. These findings have the aforementioned effects as noted above. No high-grade central stenosis. Mild foraminal encroachments as above. No significant change compared to the 2 exams
[2018-09-22] MEDS ORDERED: Lidocaine 5% Patch TD ONE (14:19)
[2018-09-22] MEDS ORDERED: Sodium Chloride 0.9% 1,000 ML ONE (14:19)
[2018-09-22 15:39] VITALS: BP 138/77; PULSE 94; RESP 19; TEMP 98.2
[2018-09-22 15:42] VITALS: O2SAT 99
== END 2018-09-22 16:00 | disposition home or self-care (01) ==
LOC: C.ER 10:23
DX: R42 Dizziness and giddiness (principal); F10.239 Alcohol dependence with withdrawal, unspecified; I10 Essential (primary) hypertension; Z87.891 Personal history of nicotine dependence

== ENCOUNTER 2018-10-09 22:54 | Emergency (ER) | payer MEDICAID, OTHER, SELFPAY ==
[2018-10-09 22:55] VITALS: BMI 26.5
--- NOTE | 2018-10-10 00:39 | C.PDOC ---
History Of Present Illness 53 year old male is brought to the ED by EMS for public intoxication. Patient was picked up sleeping in the street intoxicated and brought to the ED for evaluation. Patient denies SI/HI, hallucinations, injury, fall, trauma. Chief Complaint (Nursing): Substance Abuse History Per: Patient, EMS History/Exam Limitations: intoxication Onset/Duration Of Symptoms: Hrs Current Symptoms Are (Timing): Still Present Suicide/Self Injury Attempted (Context): None Modifying Factor(s): Alcohol Associated Symptoms: denies: Depression, Suicidal Thoughts, Suicidal Plan Recent travel outside of the [place]: No Additional History Per: Patient Past Medical History Reviewed: Historical Data, Nursing Documentation, Vital Signs Vital Signs: Last Vital Signs Temp 97.7 F 10/09/18 23:04 Pulse 97 H 10/09/18 23:04 Resp 18 10/09/18 23:04 BP 117/83 10/09/18 23:04 Pulse Ox 99 10/09/18 23:04 - Medical History PMH: Bipolar Disorder, Depression, Fractures, HTN, Paranoia, Seizures Denies: Diabetes, Hepatitis, HIV, Chronic Kidney Disease, Sexually Transmitted Disease Surgical History: Hernia Repair - [facility] Procedures DETOXIFICATION SERVICES FOR SUBSTANCE ABUSE TREATMENT (05/30/18) GROUP HOTEL RESERVATION AGENT FOR SUBSTANCE ABUSE TREATMENT, PSYCHOEDUCATION (05/30/18) GROUP HOTEL RESERVATION AGENT FOR SUBSTANCE ABUSE, COGNITIVE BEHAVIORAL (05/30/18) GROUP PSYCHOTHERAPY (05/30/18) INDIV PSYCHOTHERAPY FOR SUBSTANCE ABUSE TREATMENT, SUPPORT (05/30/18) INDIV PSYCHOTHERAPY FOR SUBSTANCE ABUSE, COGNITIV BEHAVIORAL (05/30/18) INDIV PSYCHOTHERAPY FOR SUBSTANCE ABUSE, PSYCHOEDUCATION (05/30/18) INDIVIDUAL PSYCHOTHERAPY, COGNITIVE-BEHAVIORAL (05/30/18) INDIVIDUAL PSYCHOTHERAPY, SUPPORTIVE (05/30/18) MEDICATION MANAGEMENT (01/27/18) Family History: States: Unknown Family Hx - Social History Hx Tobacco Use: No (former smoker) Hx Alcohol Use: Yes Hx Substance Use: Yes - Immunization History Hx Tetanus Toxoid Vaccination: No Hx Influenza Vaccination: No Hx Pneumococcal Vaccination: No Review Of Systems Constitutional: Negative for: Fever, Chills Eyes: Negative for: Vision Change Cardiovascular: Negative for: Chest Pain Respiratory: Negative for: Shortness of Breath Gastrointestinal: Negative for: Nausea, Vomiting, Abdominal Pain Skin: Negative for: Rash Psych: Negative for: Depression, Suicidal ideation Physical Exam - Physical Exam Appears: Non-toxic, No Acute Distress Skin: Normal Color, Warm, Dry Head: Atraumatic, Normacephalic Eye(s): bilateral: Normal Inspection Neck: Normal ROM, Supple Chest: Symmetrical Cardiovascular: Rhythm Regular Respiratory: Normal Breath Sounds, No Rales, No Rhonchi, No Wheezing Gastrointestinal/Abdominal: Soft, No Tenderness, No Guarding, No Rebound Extremity: Normal ROM, No Tenderness, No Swelling Neurological/Psych: Oriented x3, Normal Speech, Normal Cognition Gait: Steady ED Course And Treatment O2 Sat by Pulse Oximetry: 99 (ON RA) Pulse Ox Interpretation: Normal Disposition Counseled Patient/Family Regarding: Diagnosis - Disposition Referrals: Non [facility] Provider, [Primary Care Provider] - Disposition: HOME/ ROUTINE Disposition Time: 05:45 Condition: STABLE Instructions: Alcohol Abuse and Alcoholism (DC) Forms: [employer] (Tamazight) - Clinical Impression Clinical Impression: Alcohol abuse - Scribe Statement The provider has reviewed the documentation as recorded by the Scribe Meliton Finnegan All medical record entries made by the Scribe were at my direction and personally dictated by me. I have reviewed the chart and agree that the record accurately reflects my personal performance of the history, physical exam, medical decision making, and the department course for this patient. I have also personally directed, reviewed, and agree with the discharge instructions and disposition.
[2018-10-10 03:41] VITALS: RESP 20
[2018-10-10 05:46] VITALS: O2SAT 99
[2018-10-10 06:21] VITALS: BP 132/74; PULSE 85; TEMP 97.1
== END 2018-10-10 06:21 | disposition home or self-care (01) ==
LOC: SUPCPDRO 22:54 → C.ER 22:54
DX: F10.10 Alcohol abuse, uncomplicated (principal)

== ENCOUNTER 2018-10-11 22:40 | Emergency (ER) | payer SELFPAY ==
[2018-10-11 22:40] VITALS: BMI 26.5
[2018-10-11] MEDS ORDERED: Sodium Chloride 0.9% 1,000 ML IV ONE (23:10)
--- NOTE | 2018-10-11 23:10 | C.PDOC ---
History Of Present Illness The patient is brought to the ED by ambulance for evaluation after he was found sleeping in someone's backyard prior to arrival. Patient has alcohol on breath and was found to have rectal temperature of 88.9F in the ED. He shows no obvious signs of trauma and denies any complaints at this time. Time Seen by Provider: 10/11/18 23:09 Chief Complaint (Nursing): Substance Abuse History Per: Patient, EMS History/Exam Limitations: intoxication Onset/Duration Of Symptoms: Hrs Current Symptoms Are (Timing): Still Present Suicide/Self Injury Attempted (Context): None Modifying Factor(s): Alcohol Severity: None Pain Scale Rating Of: 0 Associated Symptoms: denies: Suicidal Thoughts, Suicidal Plan Involuntary Hold By: None Recent travel outside of the [place]: No Additional History Per: Patient Past Medical History Reviewed: Historical Data, Nursing Documentation, Vital Signs Vital Signs: Last Vital Signs Temp 88.9 F L 10/11/18 22:52 Pulse 71 10/11/18 22:52 Resp 16 10/11/18 22:52 BP 139/83 10/11/18 22:52 Pulse Ox 95 10/11/18 22:52 - Medical History PMH: Bipolar Disorder, Depression, Fractures, HTN, Paranoia, Seizures Denies: Diabetes, Hepatitis, HIV, Chronic Kidney Disease, Sexually Transmitted Disease Surgical History: Hernia Repair - [facility] Procedures DETOXIFICATION SERVICES FOR SUBSTANCE ABUSE TREATMENT (05/30/18) GROUP PUBLIC RELATIONS COORDINATOR FOR SUBSTANCE ABUSE TREATMENT, PSYCHOEDUCATION (05/30/18) GROUP PUBLIC RELATIONS COORDINATOR FOR SUBSTANCE ABUSE, COGNITIVE BEHAVIORAL (05/30/18) GROUP PSYCHOTHERAPY (05/30/18) INDIV PSYCHOTHERAPY FOR SUBSTANCE ABUSE TREATMENT, SUPPORT (05/30/18) INDIV PSYCHOTHERAPY FOR SUBSTANCE ABUSE, COGNITIV BEHAVIORAL (05/30/18) INDIV PSYCHOTHERAPY FOR SUBSTANCE ABUSE, PSYCHOEDUCATION (05/30/18) INDIVIDUAL PSYCHOTHERAPY, COGNITIVE-BEHAVIORAL (05/30/18) INDIVIDUAL PSYCHOTHERAPY, SUPPORTIVE (05/30/18) MEDICATION MANAGEMENT (01/27/18) Family History: States: Unknown Family Hx - Social History Hx Tobacco Use: No (former smoker) Hx Alcohol Use: Yes Hx Substance Use: Yes - Immunization History Hx Tetanus Toxoid Vaccination: No Hx Influenza Vaccination: No Hx Pneumococcal Vaccination: No Review Of Systems Constitutional: Negative for: Fever, Chills Cardiovascular: Negative for: Chest Pain, Palpitations Respiratory: Negative for: Cough, Shortness of Breath Gastrointestinal: Negative for: Nausea, Vomiting, Abdominal Pain, Diarrhea Skin: Negative for: Rash, Lesions, Jaundice, Bruising Neurological: Negative for: Weakness, Numbness Psych: Positive for: Other (EtOH intoxication ) Physical Exam - Physical Exam Appears: Non-toxic, No Acute Distress Skin: Warm, Dry, No Other (obvious evidence of trauma/injuries ) Head: Normacephalic Eye(s): bilateral: Normal Inspection Oral Mucosa: Moist, Other (alcohol on breath ) Neck: Supple Chest: Symmetrical, No Deformity Cardiovascular: Rhythm Regular, No Murmur Respiratory: No Rales, No Rhonchi, No Wheezing Extremity: Normal ROM (moving all extremities ), Capillary Refill (less than 2 seconds ) Neurological/Psych: Oriented x3 ED Course And Treatment - Laboratory Results Result Diagrams: 10/12/18 00:24 10/11/18 23:33 ECG: Interpreted By Me, Viewed By Me ECG Rhythm: Sinus Rhythm (91), Nonspecific Changes O2 Sat by Pulse Oximetry: 95 (on RA) Pulse Ox Interpretation: Normal Progress Note: Bloodwork and urinalysis ordered and reviewed. IV Fluids given. Reevaluation Time: 05:10 Reassessment Condition: Improved Disposition Counseled Patient/Family Regarding: Studies Performed, Diagnosis, Need For Followup - Disposition Referrals: [facility] at [facility] [Outside] Disposition: HOME/ ROUTINE Disposition Time: 23:10 Condition: FAIR Instructions: Alcohol Abuse and Alcoholism (DC), Hypothermia Forms: [facility] (Micronesian) - Clinical Impression Clinical Impression: Alcohol intoxication, Hypothermia - Scribe Statement The provider has reviewed the documentation as recorded by the Scribe (Hortensia Rodriguez) Provider Attestation: All medical record entries made by the Scribe were at my direction and personally dictated by me. I have reviewed the chart and agree that the record accurately reflects my personal performance of the history, physical exam, medical decision making, and the department course for this patient. I have also personally directed, reviewed, and agree with the discharge instructions and disposition.
[2018-10-11 23:51] LABS: ALB/GLOB RATIO 1.3 (1.0-2.1); ALBUMIN 5.4 g/dL (3.5-5.0); ALT/SGPT 144 U/L (21-72); AST/SGOT 229 U/L (17-59); BLOOD UREA NITROGEN 11 mg/dL (9-20); CALCIUM 9.4 mg/dl (8.6-10.4); GFR NON-AFRICAN AMERICAN > 60
[2018-10-12 00:29] LABS: BASO % 0.6 % (0.0-2.0); EOS % 0.1 % (0.0-4.0); HEMOGLOBIN 14.9 g/dL (12.0-18.0); LYMPH # 0.6 K/uL (1.0-4.3); LYMPH % 10.2 % (20.0-40.0); MEAN CELL VOLUME 89.8 fL (80.0-94.0); MEAN CORPUSCULAR HEMOGLOBIN 29.8 pg (27.0-31.0); MEAN CORPUSCULAR HGB CONC 33.2 g/dL (33.0-37.0); MEAN PLATELET VOLUME 7.5 fL (7.2-11.7); MONO # 0.2 K/uL (0.0-0.8); MONO % 3.8 % (0.0-10.0); NEUT # 5.4 K/uL (1.8-7.0); NEUT % 85.3 % (50.0-75.0); RED CELL DISTRIBUTION WIDTH 18.1 % (11.5-14.5); WHITE BLOOD COUNT 6.3 K/uL (4.8-10.8)
[2018-10-12 02:47] VITALS: PULSE 126
[2018-10-12 06:19] VITALS: BP 121/89; RESP 18; TEMP 97.1; O2SAT 96
--- NOTE | 2018-10-12 07:49 | CARD ---
APPROVED REPORT Date of service: 10/11/2018 EKG Measurement Heart [id number] <Conclusion> Normal sinus rhythm Junctional ST depression, probably normal Borderline ECG
== END 2018-10-12 06:18 | disposition home or self-care (01) ==
LOC: C.ER 22:40
DX: F10.129 Alcohol abuse with intoxication, unspecified (principal); Y90.8 Blood alcohol level of 240 mg/100 ml or more; T68.XXXA Hypothermia, initial encounter; X31.XXXA Exposure to excessive natural cold, initial encounter; I10 Essential (primary) hypertension; Z87.891 Personal history of nicotine dependence
CPT/HCPCS: 80053; 82948; 83735; 84100; 85025; 93005; 99285; G0480

== ENCOUNTER 2018-10-19 12:45 | Emergency (ER) | payer SELFPAY ==
[2018-10-19 12:51] VITALS: BMI 24.7
[2018-10-19 12:57] VITALS: O2SAT 96
--- NOTE | 2018-10-19 14:07 | C.PDOC ---
History Of Present Illness 53 y/o male brought to ER by ambulance for public intoxication after he was found on the street. Patient states that he drank 1 pint of ETOH today. Patient denies having suicidal ideation, homicidal ideation, and active physical complaints. Time Seen by Provider: 10/19/18 13:11 Chief Complaint (Nursing): Substance Abuse History Per: Patient History/Exam Limitations: no limitations Past Medical History Reviewed: Historical Data, Nursing Documentation, Vital Signs Vital Signs: Last Vital Signs Temp 97.3 F L 10/19/18 12:55 Pulse 101 H 10/19/18 12:55 Resp 20 10/19/18 12:55 BP 149/88 10/19/18 12:55 Pulse Ox 96 10/19/18 12:55 - Medical History PMH: Bipolar Disorder, Depression, Fractures, HTN, Paranoia, Seizures Denies: Diabetes, Hepatitis, HIV, Chronic Kidney Disease, Sexually Transmitted Disease Surgical History: Hernia Repair - [facility] Procedures DETOXIFICATION SERVICES FOR SUBSTANCE ABUSE TREATMENT (05/30/18) GROUP STRIP DEBURRER FOR SUBSTANCE ABUSE TREATMENT, PSYCHOEDUCATION (05/30/18) GROUP STRIP DEBURRER FOR SUBSTANCE ABUSE, COGNITIVE BEHAVIORAL (05/30/18) GROUP PSYCHOTHERAPY (05/30/18) INDIV PSYCHOTHERAPY FOR SUBSTANCE ABUSE TREATMENT, SUPPORT (05/30/18) INDIV PSYCHOTHERAPY FOR SUBSTANCE ABUSE, COGNITIV BEHAVIORAL (05/30/18) INDIV PSYCHOTHERAPY FOR SUBSTANCE ABUSE, PSYCHOEDUCATION (05/30/18) INDIVIDUAL PSYCHOTHERAPY, COGNITIVE-BEHAVIORAL (05/30/18) INDIVIDUAL PSYCHOTHERAPY, SUPPORTIVE (05/30/18) MEDICATION MANAGEMENT (01/27/18) Family History: States: No Known Family Hx - Social History Hx Tobacco Use: No (former smoker) Hx Alcohol Use: Yes Hx Substance Use: Yes - Immunization History Hx Tetanus Toxoid Vaccination: No Hx Influenza Vaccination: No Hx Pneumococcal Vaccination: No Review Of Systems Except As Marked, All Systems Reviewed And Found Negative. Constitutional: Negative for: Fever, Chills Psych: Negative for: Suicidal ideation Physical Exam - Physical Exam Appears: No Acute Distress, Other (awake,alert) Skin: Normal Color, Warm, Dry Head: Atraumatic, Normacephalic Eye(s): bilateral: Normal Inspection Nose: Normal Oral Mucosa: Moist, Other (ETOH on breath) Neck: Supple Chest: Symmetrical Cardiovascular: Rhythm Regular Respiratory: Normal Breath Sounds, No Rales, No Rhonchi, No Wheezing Gastrointestinal/Abdominal: Soft, No Tenderness, No Guarding, No Rebound Neurological/Psych: Oriented x3, Normal Speech ED Course And Treatment O2 Sat by Pulse Oximetry: 96 (RA) Pulse Ox Interpretation: Normal Reevaluation Time: 18:57 Reassessment Condition: Improved (Patient awake and alert, tolerated a full meal and is ambulatory with steady gait.) Medical Decision Making Medical Decision Making: Plan: --Glucose, POC Disposition - Disposition Disposition: HOME/ ROUTINE Disposition Time: 18:57 Condition: IMPROVED Instructions: Alcohol Abuse and Alcoholism (DC) Forms: [employer] (Turkmen) - Clinical Impression Clinical Impression: Alcohol intoxication, Alcohol use disorder, severe, dependence - Scribe Statement The provider has reviewed the documentation as recorded by the Oliverioibclifton Ramírez Provider Attestation: All medical record entries made by the Oliverioibe were at my direction and personally dictated by me. I have reviewed the chart and agree that the record accurately reflects my personal performance of the history, physical exam, medical decision making, and the department course for this patient. I have also personally directed, reviewed, and agree with the discharge instructions and disposition.
[2018-10-19 18:20] VITALS: BP 145/76; PULSE 98; RESP 18; TEMP 97.6
== END 2018-10-19 19:28 | disposition home or self-care (01) ==
LOC: C.ER 12:45
DX: F10.229 Alcohol dependence with intoxication, unspecified (principal); Y90.9 Presence of alcohol in blood, level not specified

== ENCOUNTER 2018-10-20 10:32 | Emergency (ER) | payer SELFPAY ==
[2018-10-20 10:34] VITALS: BMI 25.7
--- NOTE | 2018-10-20 10:59 | C.PDOC ---
History Of Present Illness 53 y/o male, homeless and has history of hypertension, comes in stating he feels paranoid and hears voices that are saying they want to kill him. Patient reports the voices are not telling him to kill himself and he denies suicidal/homicidal ideation. He also reports that he sees shadows. Patient states he has been taking his medications for it. Denies any fever, chills, vomiting, or other symptoms. Patient has no medical complaints at this time. Drank alcohol today. Time Seen by Provider: 10/20/18 10:35 Chief Complaint (Nursing): Substance Abuse History Per: Patient History/Exam Limitations: no limitations Onset/Duration Of Symptoms: Days Current Symptoms Are (Timing): Still Present Past Medical History Reviewed: Historical Data, Nursing Documentation, Vital Signs Vital Signs: Last Vital Signs Temp 97.6 F 10/20/18 10:34 Pulse 80 10/20/18 10:34 Resp 18 10/20/18 10:34 BP 148/97 H 10/20/18 10:34 Pulse Ox 97 10/20/18 10:34 - Medical History PMH: Bipolar Disorder, Depression, Fractures, HTN, Paranoia, Seizures Denies: Diabetes, Hepatitis, HIV, Chronic Kidney Disease, Sexually Transmitted Disease Surgical History: Hernia Repair - [facility] Procedures DETOXIFICATION SERVICES FOR SUBSTANCE ABUSE TREATMENT (05/30/18) GROUP INSIDE SALES ENGINEER FOR SUBSTANCE ABUSE TREATMENT, PSYCHOEDUCATION (05/30/18) GROUP INSIDE SALES ENGINEER FOR SUBSTANCE ABUSE, COGNITIVE BEHAVIORAL (05/30/18) GROUP PSYCHOTHERAPY (05/30/18) INDIV PSYCHOTHERAPY FOR SUBSTANCE ABUSE TREATMENT, SUPPORT (05/30/18) INDIV PSYCHOTHERAPY FOR SUBSTANCE ABUSE, COGNITIV BEHAVIORAL (05/30/18) INDIV PSYCHOTHERAPY FOR SUBSTANCE ABUSE, PSYCHOEDUCATION (05/30/18) INDIVIDUAL PSYCHOTHERAPY, COGNITIVE-BEHAVIORAL (05/30/18) INDIVIDUAL PSYCHOTHERAPY, SUPPORTIVE (05/30/18) MEDICATION MANAGEMENT (01/27/18) Family History: States: No Known Family Hx - Social History Hx Tobacco Use: No (former smoker) Hx Alcohol Use: Yes Hx Substance Use: Yes - Immunization History Hx Tetanus Toxoid Vaccination: No Hx Influenza Vaccination: No Hx Pneumococcal Vaccination: No Review Of Systems Except As Marked, All Systems Reviewed And Found Negative. Constitutional: Negative for: Fever, Chills Cardiovascular: Negative for: Chest Pain Respiratory: Negative for: Shortness of Breath Gastrointestinal: Negative for: Nausea, Vomiting, Abdominal Pain Skin: Negative for: Rash Psych: Positive for: Other (Paranoia). Negative for: Suicidal ideation (or homicidal ideation) Physical Exam - Physical Exam Appears: Non-toxic, No Acute Distress, Unkempt, Other (alcohol on breath) Skin: Warm, Dry Head: Atraumatic, Normacephalic Eye(s): bilateral: Normal Inspection Oral Mucosa: Moist Neck: Supple Cardiovascular: Rhythm Regular, No Murmur Respiratory: Normal Breath Sounds, No Rales, No Rhonchi, No Wheezing Gastrointestinal/Abdominal: Soft, No Tenderness Extremity: No Tenderness, No Pedal Edema, No Swelling Extremity: Bilateral: Atraumatic, Normal Color And Temperature, Normal ROM Neurological/Psych: Oriented x3, Normal Speech ED Course And Treatment O2 Sat by Pulse Oximetry: 97 (RA) Pulse Ox Interpretation: Normal Medical Decision Making Medical Decision Making: Plan: --Glucose --Pending sobriety 16:00 Patient reports feeling better, wants to go home. On reeval, patient is ambulatory with steady gait, clear speech, stable for d/c. Disposition Counseled Patient/Family Regarding: Studies Performed, Diagnosis, Need For Followup - Disposition Referrals: [facility] [Outside] [facility] at [facility] [Outside] Disposition: HOME/ ROUTINE Disposition Time: 16:09 Condition: IMPROVED Instructions: Alcohol Abuse and Alcoholism (DC) Forms: [facility] (Gabonese), General Discharge Instructions - Clinical Impression Clinical Impression: Alcohol intoxication - Scribe Statement The provider has reviewed the documentation as recorded by the Khurram Blancas Provider Attestation: All medical record entries made by the Oliverioibclifton were at my direction and personally dictated by me. I have reviewed the chart and agree that the record accurately reflects my personal performance of the history, physical exam, medical decision making, and the department course for this patient. I have also personally directed, reviewed, and agree with the discharge instructions and disposition.
[2018-10-20 13:58] VITALS: BP 117/72; PULSE 94; RESP 16; TEMP 98
[2018-10-20 16:10] VITALS: O2SAT 97
== END 2018-10-20 16:17 | disposition home or self-care (01) ==
LOC: C.ER 10:32
DX: F10.129 Alcohol abuse with intoxication, unspecified (principal); Y90.9 Presence of alcohol in blood, level not specified

== ENCOUNTER 2018-10-21 10:08 | Emergency (ER) | payer SELFPAY ==
[2018-10-21 10:18] VITALS: RESP 18
--- NOTE | 2018-10-21 11:18 | C.PDOC ---
History Of Present Illness 53 y/o male brought in by EMS after he was found publicly intoxicated. Patient admits to drinking alcohol. He denies any SI or HI. Patient has no medical complaints at this time. Time Seen by Provider: 10/21/18 10:39 Chief Complaint (Nursing): Substance Abuse History Per: Patient History/Exam Limitations: intoxication Onset/Duration Of Symptoms: Hrs Current Symptoms Are (Timing): Still Present Modifying Factor(s): Alcohol Associated Symptoms: denies: Suicidal Thoughts, Suicidal Plan Past Medical History Reviewed: Historical Data, Nursing Documentation, Vital Signs Vital Signs: Last Vital Signs Temp 97.4 F L 10/21/18 10:16 Pulse 78 10/21/18 10:16 Resp 18 10/21/18 10:16 BP 133/84 10/21/18 10:16 Pulse Ox 99 10/21/18 10:16 - Medical History PMH: Bipolar Disorder, Depression, Fractures, HTN, Paranoia, Seizures Denies: Diabetes, Hepatitis, HIV, Chronic Kidney Disease, Sexually Transmitted Disease Surgical History: Hernia Repair - [facility] Procedures DETOXIFICATION SERVICES FOR SUBSTANCE ABUSE TREATMENT (05/30/18) GROUP CULINARY MANAGER FOR SUBSTANCE ABUSE TREATMENT, PSYCHOEDUCATION (05/30/18) GROUP CULINARY MANAGER FOR SUBSTANCE ABUSE, COGNITIVE BEHAVIORAL (05/30/18) GROUP PSYCHOTHERAPY (05/30/18) INDIV PSYCHOTHERAPY FOR SUBSTANCE ABUSE TREATMENT, SUPPORT (05/30/18) INDIV PSYCHOTHERAPY FOR SUBSTANCE ABUSE, COGNITIV BEHAVIORAL (05/30/18) INDIV PSYCHOTHERAPY FOR SUBSTANCE ABUSE, PSYCHOEDUCATION (05/30/18) INDIVIDUAL PSYCHOTHERAPY, COGNITIVE-BEHAVIORAL (05/30/18) INDIVIDUAL PSYCHOTHERAPY, SUPPORTIVE (05/30/18) MEDICATION MANAGEMENT (01/27/18) Family History: States: Unknown Family Hx - Social History Hx Tobacco Use: No (former smoker) Hx Alcohol Use: Yes Hx Substance Use: Yes - Immunization History Hx Tetanus Toxoid Vaccination: No Hx Influenza Vaccination: No Hx Pneumococcal Vaccination: No Review Of Systems Review Of Systems: ROS cannot be obtained secondary to pt's inabilty to answer questions. Physical Exam - Physical Exam Appears: Non-toxic, No Acute Distress Skin: Warm, Dry Head: Atraumatic, Normacephalic Eye(s): bilateral: Normal Inspection, PERRL, EOMI Neck: Normal ROM Chest: Symmetrical Cardiovascular: Rhythm Regular, No Murmur Respiratory: Normal Breath Sounds, No Accessory Muscle Use Gastrointestinal/Abdominal: Soft, No Tenderness, No Distention Extremity: Bilateral: Atraumatic, Normal Color And Temperature, Other (moving all extremities) Pulses: Left Dorsalis Pedis: Normal, Right Dorsalis Pedis: Normal Neurological/Psych: Normal Speech, Other (Awake, alert, responsive to verbal stimuli) ED Course And Treatment O2 Sat by Pulse Oximetry: 99 (RA) Pulse Ox Interpretation: Normal Progress Note: Patient is resting comfortably in stretcher. Will monitor patient for sobriety. On re-evaluation patient feels better, ambulating in ED with a steady gait and wants to be d/c home. Disposition - Disposition Disposition: HOME/ ROUTINE Disposition Time: 13:16 Condition: IMPROVED Additional Instructions: Follow up with PMD within 1-2 days. Return to ED if feel worse. Instructions: Alcohol Abuse and Alcoholism (DC) Forms: [employer] (Indonesian) - Clinical Impression Clinical Impression: Alcohol intoxication - PA / ARTIFICIAL BREEDING DISTRIBUTOR / Resident Statement MD/DO has reviewed & agrees with the documentation as recorded. - Scribe Statement The provider has reviewed the documentation as recorded by the Scribe Diane Guthrie All medical record entries made by the Scribe were at my direction and personally dictated by me. I have reviewed the chart and agree that the record accurately reflects my personal performance of the history, physical exam, medical decision making, and the department course for this patient. I have also personally directed, reviewed, and agree with the discharge instructions and disposition.
[2018-10-21 13:25] VITALS: BP 134/78; PULSE 76; TEMP 98.2
[2018-10-21 14:29] VITALS: O2SAT 99
== END 2018-10-21 13:41 | disposition home or self-care (01) ==
LOC: C.ER 10:08
DX: F10.129 Alcohol abuse with intoxication, unspecified (principal)

== ENCOUNTER 2018-10-21 18:10 | Emergency (ER) | payer SELFPAY ==
--- NOTE | 2018-10-21 18:50 | C.PDOC ---
History Of Present Illness 53 y/o male brought in by EMS for public intoxication. Patient admits to drinking today. He offers no medical complaints. Denies any suicidal or homicidal ideation. No obvious signs of trauma or recent fall. Time Seen by Provider: 10/21/18 18:39 Chief Complaint (Nursing): Substance Abuse History Per: Patient History/Exam Limitations: intoxication Onset/Duration Of Symptoms: Hrs Current Symptoms Are (Timing): Still Present Modifying Factor(s): Alcohol Associated Symptoms: denies: Suicidal Thoughts, Suicidal Plan Past Medical History Reviewed: Historical Data, Nursing Documentation, Vital Signs - Medical History PMH: Bipolar Disorder, Depression, Fractures, HTN, Paranoia, Seizures Denies: Diabetes, Hepatitis, HIV, Chronic Kidney Disease, Sexually Transmitted Disease Surgical History: Hernia Repair - [facility] Procedures DETOXIFICATION SERVICES FOR SUBSTANCE ABUSE TREATMENT (05/30/18) GROUP TESTING MANAGER FOR SUBSTANCE ABUSE TREATMENT, PSYCHOEDUCATION (05/30/18) GROUP TESTING MANAGER FOR SUBSTANCE ABUSE, COGNITIVE BEHAVIORAL (05/30/18) GROUP PSYCHOTHERAPY (05/30/18) INDIV PSYCHOTHERAPY FOR SUBSTANCE ABUSE TREATMENT, SUPPORT (05/30/18) INDIV PSYCHOTHERAPY FOR SUBSTANCE ABUSE, COGNITIV BEHAVIORAL (05/30/18) INDIV PSYCHOTHERAPY FOR SUBSTANCE ABUSE, PSYCHOEDUCATION (05/30/18) INDIVIDUAL PSYCHOTHERAPY, COGNITIVE-BEHAVIORAL (05/30/18) INDIVIDUAL PSYCHOTHERAPY, SUPPORTIVE (05/30/18) MEDICATION MANAGEMENT (01/27/18) Family History: States: Unknown Family Hx - Social History Hx Tobacco Use: No (former smoker) Hx Alcohol Use: Yes Hx Substance Use: Yes - Immunization History Hx Tetanus Toxoid Vaccination: No Hx Influenza Vaccination: No Hx Pneumococcal Vaccination: No Review Of Systems Constitutional: Negative for: Fever Cardiovascular: Negative for: Chest Pain Respiratory: Negative for: Shortness of Breath Gastrointestinal: Negative for: Nausea, Vomiting Psych: Positive for: Other (ETOH). Negative for: Suicidal ideation Physical Exam - Physical Exam Appears: Non-toxic, No Acute Distress Skin: Warm, Dry Head: Atraumatic, Normacephalic Eye(s): bilateral: Normal Inspection, PERRL, EOMI Neck: Normal ROM Chest: Symmetrical Cardiovascular: Rhythm Regular, No Murmur Respiratory: Normal Breath Sounds, No Accessory Muscle Use Gastrointestinal/Abdominal: Soft, No Tenderness, No Distention Extremity: Bilateral: Atraumatic, Normal Color And Temperature Pulses: Left Dorsalis Pedis: Normal, Right Dorsalis Pedis: Normal Neurological/Psych: Normal Speech, Other (Awake, alert, responds to verbal stimuli) Medical Decision Making Medical Decision Making: Impression: ETOH intoxication Plan: * Pending clinical sobriety notifed by rn, Patient ambulated out of the ED Disposition - Disposition Disposition: HOME/ ROUTINE Disposition Time: 21:00 Condition: STABLE Additional Instructions: return to er with worsening. Instructions: Alcohol Abuse and Alcoholism (DC) Forms: [employer] (Albanian) - Clinical Impression Clinical Impression: Alcohol abuse - Scribe Statement The provider has reviewed the documentation as recorded by the Khurram Guthrie Provider Attestation: All medical record entries made by the Khurram were at my direction and personally dictated by me. I have reviewed the chart and agree that the record accurately reflects my personal performance of the history, physical exam, medical decision making, and the department course for this patient. I have also personally directed, reviewed, and agree with the discharge instructions and disposition.
[2018-10-21 18:59] VITALS: RESP 20
[2018-10-21 20:59] VITALS: BP 106/65; PULSE 67; TEMP 98.7; O2SAT 96
== END 2018-10-21 21:39 | disposition home or self-care (01) ==
LOC: C.ER 18:10
DX: F10.129 Alcohol abuse with intoxication, unspecified (principal)

== ENCOUNTER 2018-10-22 11:41 | Emergency (ER) | payer SELFPAY ==
[2018-10-22 11:48] VITALS: BMI 23.3
--- NOTE | 2018-10-22 11:57 | C.PDOC ---
Chief Complaint (Nursing): Substance Abuse Past Medical History Vital Signs: Last Vital Signs Temp 97.4 F L 10/22/18 11:49 Pulse 70 10/22/18 11:49 Resp 18 10/22/18 11:49 BP 107/70 10/22/18 11:49 Pulse Ox 99 10/22/18 11:49 - Medical History PMH: Bipolar Disorder, Depression, Fractures, HTN, Paranoia, Seizures Denies: Diabetes, Hepatitis, HIV, Chronic Kidney Disease, Sexually Transmitted Disease Surgical History: Hernia Repair - [facility] Procedures DETOXIFICATION SERVICES FOR SUBSTANCE ABUSE TREATMENT (05/30/18) GROUP DIRECTOR ORACLE RETAIL FOR SUBSTANCE ABUSE TREATMENT, PSYCHOEDUCATION (05/30/18) GROUP DIRECTOR ORACLE RETAIL FOR SUBSTANCE ABUSE, COGNITIVE BEHAVIORAL (05/30/18) GROUP PSYCHOTHERAPY (05/30/18) INDIV PSYCHOTHERAPY FOR SUBSTANCE ABUSE TREATMENT, SUPPORT (05/30/18) INDIV PSYCHOTHERAPY FOR SUBSTANCE ABUSE, COGNITIV BEHAVIORAL (05/30/18) INDIV PSYCHOTHERAPY FOR SUBSTANCE ABUSE, PSYCHOEDUCATION (05/30/18) INDIVIDUAL PSYCHOTHERAPY, COGNITIVE-BEHAVIORAL (05/30/18) INDIVIDUAL PSYCHOTHERAPY, SUPPORTIVE (05/30/18) MEDICATION MANAGEMENT (01/27/18) Family History: States: Unknown Family Hx - Social History Hx Tobacco Use: No (former smoker) Hx Alcohol Use: Yes Hx Substance Use: Yes - Immunization History Hx Tetanus Toxoid Vaccination: No Hx Influenza Vaccination: No Hx Pneumococcal Vaccination: No ED Course And Treatment O2 Sat by Pulse Oximetry: 99 Disposition - Disposition
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
[2018-10-22 17:39] VITALS: BP 124/82; PULSE 106; RESP 16; TEMP 98.2
[2018-10-22 17:55] VITALS: O2SAT 99
== END 2018-10-22 18:01 | disposition home or self-care (01) ==
LOC: C.ER 11:41
DX: F10.129 Alcohol abuse with intoxication, unspecified (principal); Y90.9 Presence of alcohol in blood, level not specified; H11.31 Conjunctival hemorrhage, right eye

== ENCOUNTER 2018-10-29 12:33 | Emergency (ER) | payer MEDICAID, OTHER, SELFPAY ==
[2018-10-29] MEDS ORDERED: Tetracaine 0.5% Ophth 2 ML BOTTLE OS ONE (13:12)
[2018-10-29] MEDS ORDERED: Fluorescein 1 mg Ophthalmic Strip OS ONE (13:16)
[2018-10-29] MEDS ORDERED: Tetracaine 0.5% Ophth (OR ONLY) ONE (13:44)
[2018-10-29] MEDS ORDERED: Fluorescein 1 mg Ophthalmic Strip ONE (13:44)
--- NOTE | 2018-10-29 14:31 | CT ---
Date of service: 10/29/2018 PROCEDURE: CT HEAD WITHOUT CONTRAST. HISTORY: headache COMPARISON: None available. TECHNIQUE: Axial computed tomography images were obtained through the head/brain without intravenous contrast. Radiation dose: Total exam DLP = 1149.99 mGy-cm. This CT exam was performed using one or more of the following dose reduction techniques: Automated exposure control, adjustment of the mA and/or kV according to patient size, and/or use of iterative reconstruction technique. FINDINGS: HEMORRHAGE: No intracranial hemorrhage. BRAIN: The sanabria-white matter differentiation is well preserved. There is no mass effect or definitive edema pattern appreciated including the cortex. There is limited, stable proportional expansion of the ventriculosulcal and cisternal spaces however in a pattern most compatible with diffuse cerebral atrophy. No suspicious extra-axial fluid collection is identified in the midline brain anatomy appears grossly nonfocal as imaged. VENTRICLES: Unremarkable. No hydrocephalus. CALVARIUM: Unremarkable. PARANASAL SINUSES: Unremarkable as visualized. No significant inflammatory changes. MASTOID AIR CELLS: Unremarkable as visualized. No inflammatory changes. OTHER FINDINGS: None. IMPRESSION: Limited stable diffuse cerebral atrophy appreciated. No acute intracranial findings as discussed above. Follow-up CT or MRI are available if clinically warranted. No significant interval change from prior CT dated 10/22/2018.
[2018-10-29 15:17] VITALS: RESP 14
[2018-10-29] MEDS ORDERED: Ciprofloxacin 0.3% OPTH SOLN OS STA (15:42)
--- NOTE | 2018-10-29 15:52 | C.PDOC ---
History Of Present Illness 53 y/o male pt with history of hypertension presents to the ER c/o left eye burning that started x4 days ago. Associated sx includes itchiness, mild blurry vision and redness. Pt reports he had yellow crust in his eyelid this morning. Patient is not compliant with hypertension medication. On arrival, patient was hypertensive. Pt denies headache and eye pain. Time Seen by Provider: 10/29/18 13:07 Chief Complaint (Nursing): Eye Problem History Per: Patient History/Exam Limitations: no limitations Onset/Duration Of Symptoms: Days (x4) Current Symptoms Are (Timing): Still Present Past Medical History Reviewed: Historical Data, Nursing Documentation, Vital Signs Vital Signs: Last Vital Signs Temp 98.8 F 10/29/18 14:29 Pulse 58 L 10/29/18 14:29 Resp 14 10/29/18 15:16 BP 144/84 10/29/18 15:16 Pulse Ox 99 10/29/18 15:16 - Medical History PMH: Bipolar Disorder, Depression, Fractures, HTN, Paranoia, Seizures Surgical History: Hernia Repair - [facility] Procedures DETOXIFICATION SERVICES FOR SUBSTANCE ABUSE TREATMENT (05/30/18) GROUP SITE PHYSICIAN FOR SUBSTANCE ABUSE TREATMENT, PSYCHOEDUCATION (05/30/18) GROUP SITE PHYSICIAN FOR SUBSTANCE ABUSE, COGNITIVE BEHAVIORAL (05/30/18) GROUP PSYCHOTHERAPY (05/30/18) INDIV PSYCHOTHERAPY FOR SUBSTANCE ABUSE TREATMENT, SUPPORT (05/30/18) INDIV PSYCHOTHERAPY FOR SUBSTANCE ABUSE, COGNITIV BEHAVIORAL (05/30/18) INDIV PSYCHOTHERAPY FOR SUBSTANCE ABUSE, PSYCHOEDUCATION (05/30/18) INDIVIDUAL PSYCHOTHERAPY, COGNITIVE-BEHAVIORAL (05/30/18) INDIVIDUAL PSYCHOTHERAPY, SUPPORTIVE (05/30/18) MEDICATION MANAGEMENT (01/27/18) Family History: States: No Known Family Hx - Social History Hx Tobacco Use: No (former smoker) Hx Alcohol Use: Yes Hx Substance Use: No - Immunization History Hx Tetanus Toxoid Vaccination: Yes Hx Influenza Vaccination: Yes Hx Pneumococcal Vaccination: No Review Of Systems Except As Marked, All Systems Reviewed And Found Negative. Eyes: Positive for: Vision Change (blurry ), Redness, Other (itchiness; left eye burning). Negative for: Pain Neurological: Negative for: Headache Physical Exam - Physical Exam Appears: Non-toxic, No Acute Distress Skin: Warm, Dry Head: Normacephalic Eye(s): bilateral: Normal Inspection (vision grossly intact ), right: Other (conjunctival erythema ) Chest: Symmetrical Cardiovascular: Rhythm Regular Respiratory: Normal Breath Sounds Neurological/Psych: Oriented x3, Normal Speech, Normal Cognition, Normal Motor, Normal Sensation ED Course And Treatment ECG: Interpreted By Me, Viewed By Me ECG Rhythm: Sinus Rhythm, Nonspecific Changes ECG Interpretation: Normal Interpretation Of ECG: no ST elevation Rate From EC O2 Sat by Pulse Oximetry: 99 (RA) Pulse Ox Interpretation: Normal - CT Scan/US head CT Other Rad Studies (CT/US): Read By Radiologist, Radiology Report Reviewed CT/US Interpretation: Accession No. : [id number]. Patient Name / ID : ASHU CUELLAR / [id number]. Exam Date : 10/29/2018 13:59:45 ( Approved ). Study Comment : Sex / Age : M / 53Y. Creator : Cheyenne Vasques. Dictator : Milo Bojorquez MD. Pick Pack Worker : Police Stenographer : Milo Bojorquez MD. Approver2 : Report Date : 10/29/2018 14:20:02. My Comment : . Date of service: 10/29/2018. PROCEDURE: CT HEAD WITHOUT CONTRAST. HISTORY: headache. COMPARISON: None available. TECHNIQUE: Axial computed tomography images were obtained through the head/brain without intravenous contrast. Radiation dose: Total exam DLP = 1149.99 mGy-cm. This CT exam was performed using one or more of the following dose reduction techniques: Automated exposure control, adjustment of the mA and/or kV according to patient size, and/or use of iterative reconstruction technique. FINDINGS: HEMORRHAGE: No intracranial hemorrhage. BRAIN: The sanabria-white matter differentiation is well preserved. There is no mass effect or definitive edema pattern appreciated including the cortex. There is limited, stable proportional expansion of the ventriculosulcal and cisternal spaces however in a pattern most compatible with diffuse cerebral atrophy. No suspicious extra-axial fluid collection is identified in the midline brain anatomy appears grossly nonfocal as imaged. VENTRICLES: Unremarkable. No hydrocephalus. CALVARIUM: Unremarkable. PARANASAL SINUSES: Unremarkable as visualized. No significant inflammatory changes. MASTOID AIR CELLS: Unremarkable as visualized. No inflammatory changes. OTHER FINDINGS: None. IMPRESSION: Limited stable diffuse cerebral atrophy appreciated. No acute intracranial findings as discussed above. Follow-up CT or MRI are available if clinically warranted. No significant interval change from prior CT dated 10/22/2018. Medical Decision Making Medical Decision Making: Impression: No signs of acute vision changes; No sign of CVA Plans: -- Head CT -- EKG -- catapres -- fluorescein -- tetracaine Reassess: pt later on complained on dizziness -- Pt given antivert and ciloxan --(-) fluorescein results Progress/Update: --4:01pm : Talked to Dr. Shaikh who recommended Cipro and wants the patient to follow up with him next week as outpatient. --Pt is instructed to f/u with home care giver in 1-2 days. Disposition Discussed With : Paulo Mi Counseled Patient/Family Regarding: Studies Performed, Diagnosis, Need For Followup, Rx Given - Disposition Referrals: Paulo Mi [Staff Provider] - Disposition: HOME/ ROUTINE Disposition Time: 15:57 Condition: STABLE Prescriptions: Ciprofloxacin 0.3% [Ciloxan 0.3% Ophth SOLN] 2 drop OS BID 10 Days bottle Guaifenesin [Mucinex] 600 mg PO BID 5 Days tab.er.12h Meclizine [Meclizine*] 25 mg PO Q6 #20 tab Instructions: High Blood Pressure in Adults, Conjunctivitis ([place]) Forms: Gen Discharge Inst [place], General Discharge Instructions, [employer] [facility] (Vietnamese) - Clinical Impression Clinical Impression: Conjunctivitis, Hypertension - Scribe Statement The provider has reviewed the documentation as recorded by the Khurram Fischer Do Provider Attestation: All medical record entries made by the Scribe were at my direction and personally dictated by me. I have reviewed the chart and agree that the record accurately reflects my personal performance of the history, physical exam, medical decision making, and the department course for this patient. I have also personally directed, reviewed, and agree with the discharge instructions and disposition.
[2018-10-29 16:23] VITALS: BP 137/85; PULSE 69; TEMP 98.5
[2018-10-29 16:46] VITALS: O2SAT 99
--- NOTE | 2018-10-31 09:20 | CARD ---
APPROVED REPORT Date of service: 10/29/2018 EKG Measurement Heart [id number] MD [id number] <Conclusion> Normal sinus rhythm Normal ECG
== END 2018-10-29 16:23 | disposition home or self-care (01) ==
LOC: C.ER 12:33
DX: H10.9 Unspecified conjunctivitis (principal); I10 Essential (primary) hypertension; Z87.891 Personal history of nicotine dependence

== ENCOUNTER 2018-12-16 01:47 | Emergency (ER) | payer OTHER ==
[2018-12-16 02:07] VITALS: RESP 16
--- NOTE | 2018-12-16 03:55 | C.PDOC ---
History Of Present Illness 53 year old male brought to the ED for evaluation of left knee pain for the past 3 months. Patient also admits to drinking alcohol today, and appears intoxioictaed. Patient denies falls/injuries, sensory changes, other physical complaints. Time Seen by Provider: 12/16/18 01:50 Chief Complaint (Nursing): Lower Extremity Problem/Injury History Per: Patient, EMS History/Exam Limitations: intoxication Onset/Duration Of Symptoms: Persistent Current Symptoms Are (Timing): Still Present Additional History Per: Patient - Knee Description Of Injury: Other Past Medical History Reviewed: Historical Data, Nursing Documentation, Vital Signs Vital Signs: Last Vital Signs Temp 98.6 F 12/16/18 01:58 Pulse 126 H 12/16/18 01:58 Resp 16 12/16/18 01:58 BP 146/97 H 12/16/18 01:58 Pulse Ox 97 12/16/18 01:58 - Medical History PMH: Bipolar Disorder, Depression, Fractures, HTN, Paranoia, Seizures Surgical History: Hernia Repair - [facility] Procedures DETOXIFICATION SERVICES FOR SUBSTANCE ABUSE TREATMENT (05/30/18) GROUP INTERIOR DESIGN PRINCIPAL FOR SUBSTANCE ABUSE TREATMENT, PSYCHOEDUCATION (05/30/18) GROUP INTERIOR DESIGN PRINCIPAL FOR SUBSTANCE ABUSE, COGNITIVE BEHAVIORAL (05/30/18) GROUP PSYCHOTHERAPY (05/30/18) INDIV PSYCHOTHERAPY FOR SUBSTANCE ABUSE TREATMENT, SUPPORT (05/30/18) INDIV PSYCHOTHERAPY FOR SUBSTANCE ABUSE, COGNITIV BEHAVIORAL (05/30/18) INDIV PSYCHOTHERAPY FOR SUBSTANCE ABUSE, PSYCHOEDUCATION (05/30/18) INDIVIDUAL PSYCHOTHERAPY, COGNITIVE-BEHAVIORAL (05/30/18) INDIVIDUAL PSYCHOTHERAPY, SUPPORTIVE (05/30/18) MEDICATION MANAGEMENT (01/27/18) Family History: States: No Known Family Hx - Social History Hx Tobacco Use: No (former smoker) Hx Alcohol Use: Yes Hx Substance Use: Yes - Immunization History Hx Tetanus Toxoid Vaccination: Yes Hx Influenza Vaccination: Yes Hx Pneumococcal Vaccination: No Review Of Systems Constitutional: Negative for: Fever, Chills Cardiovascular: Negative for: Chest Pain Respiratory: Negative for: Shortness of Breath Gastrointestinal: Negative for: Nausea, Vomiting, Abdominal Pain Musculoskeletal: Positive for: Leg Pain Skin: Negative for: Rash Neurological: Negative for: Weakness, Numbness Psych: Positive for: Other (alcohol intoxication) Physical Exam - Physical Exam Appears: Well, Non-toxic, No Acute Distress, Unkempt, Other (intoxicated appearing) Skin: Normal Color, Warm, Dry Head: Atraumatic, Normacephalic Eye(s): bilateral: Normal Inspection, PERRL, EOMI Oral Mucosa: Moist Neck: Normal ROM, No Midline Cervical Tenderness, No Paracervical Tenderness, No Step Off Deformity, Supple Cardiovascular: Rhythm Regular Respiratory: Normal Breath Sounds, No Rales, No Rhonchi, No Wheezing Gastrointestinal/Abdominal: Normal Exam, Bowel Sounds, Soft, No Tenderness Extremity: Normal ROM, No Tenderness, No Calf Tenderness, No Capillary Refill, No Deformity, No Swelling, Other (legs/knees B/L nontender ) Extremity: Bilateral: Atraumatic, Normal Color And Temperature, Normal ROM Pulses: Left Dorsalis Pedis: Normal, Right Dorsalis Pedis: Normal Neurological/Psych: Other (intoxicated, verbal, able to follow commands) Gait: Steady ED Course And Treatment O2 Sat by Pulse Oximetry: 97 (On RA) Pulse Ox Interpretation: Normal - Other Rad Left knee X-Ray X-Ray: Interpreted by Me, Viewed By Me Interpretation: No fracture or dislocation Progress Note: Xray of left knee ordered and reviewed. Patient given PO Motrin. Pending sobriety. Reevaluation Time: 06:10 Reassessment Condition: Improved (Patient is currently AAOx3, ambulating normally in the ED. He is clinically sober, will discharge.) Disposition Counseled Patient/Family Regarding: Studies Performed, Diagnosis, Need For Followup - Disposition Referrals: [facility] at [facility] [Outside] Disposition: HOME/ ROUTINE Disposition Time: 06:10 Condition: STABLE Instructions: Alcohol Abuse and Alcoholism (DC) Forms: [employer] ([place]) Print Language: BENGALI - Clinical Impression Clinical Impression: Alcohol intoxication, Left knee pain - Scribe Statement The provider has reviewed the documentation as recorded by the Scribe Meliton Finnegan All medical record entries made by the Scribe were at my direction and personally dictated by me. I have reviewed the chart and agree that the record accurately reflects my personal performance of the history, physical exam, medical decision making, and the department course for this patient. I have also personally directed, reviewed, and agree with the discharge instructions and disposition.
[2018-12-16 06:22] VITALS: BP 110/68; PULSE 92; TEMP 98; O2SAT 97
--- NOTE | 2018-12-16 11:28 | RAD ---
Date of service: 12/16/2018 PROCEDURE: Left Knee Radiographs. HISTORY: Pain. COMPARISON: None. FINDINGS: BONES: Normal. No fracture. JOINTS: Normal. No osteoarthritis. JOINT EFFUSION: None. OTHER FINDINGS: None. IMPRESSION: Normal radiographs of the left knee.
== END 2018-12-16 06:23 | disposition home or self-care (01) ==
LOC: C.ER 01:47
DX: F10.129 Alcohol abuse with intoxication, unspecified (principal); M25.562 Pain in left knee

== ENCOUNTER 2018-12-17 00:24 | Emergency (ER) | payer SELFPAY ==
[2018-12-17 05:19] VITALS: BP 118/72; PULSE 114; RESP 18; TEMP 98.8; O2SAT 99
--- NOTE | 2018-12-17 06:31 | C.PDOC ---
History Of Present Illness 53 year old male presents to the emergency department after being brought in by ambulance for malingering in [facility] intoxicated with alcohol. Patient denies any active complaints at this time and is looking for a place to stay the night. Chief Complaint (Nursing): Substance Abuse History Per: Patient, EMS History/Exam Limitations: no limitations Onset/Duration Of Symptoms: Hrs Current Symptoms Are (Timing): Still Present Suicide/Self Injury Attempted (Context): None Modifying Factor(s): Alcohol Past Medical History Reviewed: Historical Data, Nursing Documentation, Vital Signs Vital Signs: Last Vital Signs Temp 98.8 F 12/17/18 05:18 Pulse 114 H 12/17/18 05:18 Resp 18 12/17/18 05:18 BP 118/72 12/17/18 05:18 Pulse Ox 99 12/17/18 05:18 - Medical History PMH: Bipolar Disorder, Depression, Fractures, HTN, Paranoia, Seizures Denies: Diabetes, Hepatitis, HIV, Chronic Kidney Disease, Sexually Transmitted Disease Surgical History: Hernia Repair - [facility] Procedures DETOXIFICATION SERVICES FOR SUBSTANCE ABUSE TREATMENT (05/30/18) GROUP GLYCERIN OPERATOR FOR SUBSTANCE ABUSE TREATMENT, PSYCHOEDUCATION (05/30/18) GROUP GLYCERIN OPERATOR FOR SUBSTANCE ABUSE, COGNITIVE BEHAVIORAL (05/30/18) GROUP PSYCHOTHERAPY (05/30/18) INDIV PSYCHOTHERAPY FOR SUBSTANCE ABUSE TREATMENT, SUPPORT (05/30/18) INDIV PSYCHOTHERAPY FOR SUBSTANCE ABUSE, COGNITIV BEHAVIORAL (05/30/18) INDIV PSYCHOTHERAPY FOR SUBSTANCE ABUSE, PSYCHOEDUCATION (05/30/18) INDIVIDUAL PSYCHOTHERAPY, COGNITIVE-BEHAVIORAL (05/30/18) INDIVIDUAL PSYCHOTHERAPY, SUPPORTIVE (05/30/18) MEDICATION MANAGEMENT (01/27/18) Family History: States: No Known Family Hx - Social History Hx Tobacco Use: No (former smoker) Hx Alcohol Use: Yes Hx Substance Use: Yes - Immunization History Hx Tetanus Toxoid Vaccination: Yes Hx Influenza Vaccination: Yes Hx Pneumococcal Vaccination: No Review Of Systems Review Of Systems: ROS cannot be obtained secondary to pt's inabilty to answer questions. Physical Exam - Physical Exam Appears: Non-toxic, No Acute Distress Skin: Normal Color, Warm, Dry Head: Atraumatic, Normacephalic Eye(s): bilateral: Normal Inspection, PERRL, EOMI Nose: Normal Oral Mucosa: Moist, Other (alcohol on breath) Neck: Normal, Supple Chest: Symmetrical, No Tenderness Cardiovascular: Rhythm Regular, No Murmur Respiratory: No Rales, No Rhonchi, No Wheezing Gastrointestinal/Abdominal: Soft, No Tenderness, No Guarding, No Rebound Extremity: Normal ROM Neurological/Psych: Oriented x3 ED Course And Treatment O2 Sat by Pulse Oximetry: 99 (RA) Pulse Ox Interpretation: Normal Medical Decision Making Medical Decision Making: Plan: Glucose POC Disposition Counseled Patient/Family Regarding: Diagnosis, Need For Followup - Disposition Referrals: [facility] [Outside] [facility] [Outside] Disposition Time: 06:42 Condition: STABLE Instructions: Alcohol Abuse and Alcoholism (DC) Forms: Gen Discharge Inst Cymro, [employer] Connect (Cymro) Print Language: UKRAINIAN - POA Present On Arrival: None - Clinical Impression Clinical Impression: Alcohol intoxication - Scribe Statement The provider has reviewed the documentation as recorded by the Scribe (Israel Gustafson) Provider Attestation: All medical record entries made by the Scribe were at my direction and personally dictated by me. I have reviewed the chart and agree that the record accurately reflects my personal performance of the history, physical exam, medical decision making, and the department course for this patient. I have also personally directed, reviewed, and agree with the discharge instructions and disposition.
== END 2018-12-17 06:49 | disposition home or self-care (01) ==
LOC: C.ER 00:24
DX: F10.129 Alcohol abuse with intoxication, unspecified (principal); Y90.9 Presence of alcohol in blood, level not specified

== ENCOUNTER 2018-12-20 16:18 | Emergency (ER) | payer OTHER ==
--- NOTE | 2018-12-20 17:38 | C.PDOC ---
History Of Present Illness 53 year old male brought to ED via BLS for alcohol intoxication. Patient was seen walking and talking to the nurse, however when care provider approached to the patient he was unarousable to strong stimuli. Bruising was noted to the patient's right flank area. <Anny Helms - Last Filed: 12/20/18 19:14> History Per: EMS History/Exam Limitations: intoxication Onset/Duration Of Symptoms: Hrs Current Symptoms Are (Timing): Still Present Suicide/Self Injury Attempted (Context): None Modifying Factor(s): Alcohol <Anny Helms - Last Filed: 12/20/18 19:14> <Minh Almaraz - Last Filed: 12/21/18 05:55> Time Seen by Provider: 12/20/18 16:39 Chief Complaint (Nursing): Substance Abuse Past Medical History Reviewed: Historical Data, Nursing Documentation, Vital Signs Vital Signs: Last Vital Signs Temp 97.7 F 12/20/18 16:31 Pulse 91 H 12/20/18 16:31 Resp 18 12/20/18 16:31 BP 113/72 12/20/18 16:31 Pulse Ox 97 12/20/18 16:31 - Medical History PMH: Bipolar Disorder, Depression, Fractures, HTN, Paranoia, Seizures Denies: Diabetes, Hepatitis, HIV, Chronic Kidney Disease, Sexually Transmitted Disease Surgical History: Hernia Repair - [facility] Procedures DETOXIFICATION SERVICES FOR SUBSTANCE ABUSE TREATMENT (05/30/18) GROUP CLINICAL NURSE FOR SUBSTANCE ABUSE TREATMENT, PSYCHOEDUCATION (05/30/18) GROUP CLINICAL NURSE FOR SUBSTANCE ABUSE, COGNITIVE BEHAVIORAL (05/30/18) GROUP PSYCHOTHERAPY (05/30/18) INDIV PSYCHOTHERAPY FOR SUBSTANCE ABUSE TREATMENT, SUPPORT (05/30/18) INDIV PSYCHOTHERAPY FOR SUBSTANCE ABUSE, COGNITIV BEHAVIORAL (05/30/18) INDIV PSYCHOTHERAPY FOR SUBSTANCE ABUSE, PSYCHOEDUCATION (05/30/18) INDIVIDUAL PSYCHOTHERAPY, COGNITIVE-BEHAVIORAL (05/30/18) INDIVIDUAL PSYCHOTHERAPY, SUPPORTIVE (05/30/18) MEDICATION MANAGEMENT (01/27/18) Family History: States: Unknown Family Hx - Social History Hx Tobacco Use: No (former smoker) Hx Alcohol Use: Yes Hx Substance Use: Yes - Immunization History Hx Tetanus Toxoid Vaccination: Yes Hx Influenza Vaccination: Yes Hx Pneumococcal Vaccination: No <Anny Helms - Last Filed: 12/20/18 19:14> Vital Signs: Last Vital Signs Temp 97.7 F 12/20/18 16:31 Pulse 88 12/20/18 19:15 Resp 16 12/20/18 19:15 BP 96/57 L 12/20/18 19:15 Pulse Ox 97 12/20/18 19:15 - [facility] Procedures DETOXIFICATION SERVICES FOR SUBSTANCE ABUSE TREATMENT (05/30/18) GROUP CLINICAL NURSE FOR SUBSTANCE ABUSE TREATMENT, PSYCHOEDUCATION (05/30/18) GROUP CLINICAL NURSE FOR SUBSTANCE ABUSE, COGNITIVE BEHAVIORAL (05/30/18) GROUP PSYCHOTHERAPY (05/30/18) INDIV PSYCHOTHERAPY FOR SUBSTANCE ABUSE TREATMENT, SUPPORT (05/30/18) INDIV PSYCHOTHERAPY FOR SUBSTANCE ABUSE, COGNITIV BEHAVIORAL (05/30/18) INDIV PSYCHOTHERAPY FOR SUBSTANCE ABUSE, PSYCHOEDUCATION (05/30/18) INDIVIDUAL PSYCHOTHERAPY, COGNITIVE-BEHAVIORAL (05/30/18) INDIVIDUAL PSYCHOTHERAPY, SUPPORTIVE (05/30/18) MEDICATION MANAGEMENT (01/27/18) <Minh Almaraz - Last Filed: 12/21/18 05:55> Review Of Systems Review Of Systems: ROS cannot be obtained secondary to pt's inabilty to answer questions. <Anny Helms - Last Filed: 12/20/18 19:14> Physical Exam - Physical Exam Appears: Other (intoxicated, unarousable ) Skin: Normal Color, Warm, Dry Head: Atraumatic, Normacephalic Cardiovascular: Rhythm Regular, No Murmur Respiratory: No Accessory Muscle Use, No Rales, No Rhonchi, No Wheezing Gastrointestinal/Abdominal: Other (ecchymosis to the right flank area, 6 in by 4in hematoma to the right flank area to the waist level) <Anny Helms - Last Filed: 12/20/18 19:14> ED Course And Treatment - Laboratory Results Result Diagrams: 12/20/18 18:35 12/20/18 18:35 O2 Sat by Pulse Oximetry: 97 (in RA) <Anny Helms - Last Filed: 12/20/18 19:14> - Laboratory Results Result Diagrams: 12/20/18 18:35 12/20/18 18:35 Lab Results: PT 11.9 SECONDS (9.7-12.2) 12/20/18 18:35 INR 1.1 12/20/18 18:35 APTT 33 SECONDS (21-34) 12/20/18 18:35 Total Bilirubin 0.5 mg/dL (0.2-1.3) 12/20/18 18:35 AST 343 U/L (17-59) H D 12/20/18 18:35 ALT 113 U/L (21-72) H D 12/20/18 18:35 Alkaline Phosphatase 96 U/L (38-126) 12/20/18 18:35 Total Protein 7.3 g/dL (6.3-8.3) 12/20/18 18:35 Albumin 4.4 g/dL (3.5-5.0) 12/20/18 18:35 Globulin 2.8 gm/dL (2.2-3.9) 12/20/18 18:35 Albumin/Globulin Ratio 1.6 (1.0-2.1) 12/20/18 18:35 Lipase 518 U/L (23-300) H 12/20/18 18:35 Urine Color Yellow (YELLOW) 12/20/18 18:35 Urine Clarity Clear (Clear) 12/20/18 18:35 Urine pH 6.0 (5.0-8.0) 12/20/18 18:35 Ur Specific [place] 1.004 (1.003-1.030) 12/20/18 18:35 Urine Protein Negative mg/dL (NEGATIVE) 12/20/18 18:35 Urine Glucose (UA) Normal mg/dL (Normal) 12/20/18 18:35 Urine Ketones Negative mg/dL (NEGATIVE) 12/20/18 18:35 Urine Blood Negative (NEGATIVE) 12/20/18 18:35 Urine Nitrate Negative (NEGATIVE) 12/20/18 18:35 Urine Bilirubin Negative (NEGATIVE) 12/20/18 18:35 Urine Urobilinogen Normal mg/dL (0.2-1.0) 12/20/18 18:35 Ur Leukocyte Esterase Neg Jean Paul/uL (Negative) 12/20/18 18:35 Urine WBC (Auto) 1 /hpf (0-5) 12/20/18 18:35 Urine RBC (Auto) < 1 /hpf (0-3) 12/20/18 18:35 Urine Bacteria Rare (<OCC) 12/20/18 18:35 ECG: Interpreted By Me, Viewed By Me ECG Rhythm: Sinus Rhythm ECG Interpretation: Normal Interpretation Of ECG: Nonspecific ST/T wave changes Rate From EC - CT Scan/US Head CT Other Rad Studies (CT/US): Interpreted By Me, Read By Radiologist CT/US Interpretation: IMPRESSION: No acute intracranial abnormality. Abdomen/Pelvis CT Other Rad Studies (CT/US): Interpreted By Me, Read By Radiologist CT/US Interpretation: IMPRESSION: 1. Evidence of diffuse enteritis. 2. Borderline hepatomegaly with associated diffuse hepatic steatosis. 3. Subcutaneous stranding with multiple high density nodules in the posterior lateral lower right flank and buttocks region compatible with posttraumatic bruising / small hematomas. <Mihn Almaraz - Last Filed: 12/21/18 05:55> Medical Decision Making Medical Decision Making: Impression: 53 year old male brought to ED via BLS for alcohol intoxication. Plan: Abdomen/Pelvis CT and Head CT ordered for patient. Labs ordered with drug screen and UA. <Anny Helms - Last Filed: 12/20/18 19:14> Medical Decision Making: case endoserd pending ct. no e/o o flbeeding on ct. no gi symptoms. in er i nnad. lipse baseline <3x upper limit normal abd soft. observed overnight. in am asking for dc. <Minh Almaraz - Last Filed: 12/21/18 05:55> Disposition - Disposition Disposition Time: 19:15 <Anny Helms - Last Filed: 12/20/18 19:14> <Minh Almaraz - Last Filed: 12/21/18 05:55> - Disposition Disposition: HOME/ ROUTINE Condition: STABLE Additional Instructions: return to er with worsening Instructions: Alcohol Use - When Is Drinking a Problem?, Hypokalemia (DC), Alcohol Withdrawal (DC) Forms: [employer] [facility] (Uruguayan) - Clinical Impression Clinical Impression: Hypokalemia, Traumatic ecchymosis of flank, Alcohol intoxication - PA / STRATEGIC PLANNING DIRECTOR / Resident Statement MD/DO has reviewed & agrees with the documentation as recorded. (Marie roth) - Scribe Statement The provider has reviewed the documentation as recorded by the Scribe (Marie Cross) All medical record entries made by the Scribe were at my direction and personally dictated by me. I have reviewed the chart and agree that the record accurately reflects my personal performance of the history, physical exam, medical decision making, and the department course for this patient. I have also personally directed, reviewed, and agree with the discharge instructions and disposition. <Anny Helms - Last Filed: 12/20/18 19:14> Physician Patient Turnover Patient Signed Over To: Minh Almaraz Handoff Comments: f/u ct scan abdomen and head, ekg and continue to replace potassium and disposition accordingly <Anny Helms - Last Filed: 12/20/18 19:14>
[2018-12-20 18:38] LABS: LYMPH # 1.4 K/uL (1.0-4.3); NEUT # 1.1 K/uL (1.8-7.0)
[2018-12-20 18:44] LABS: URINE BACTERIA RARE (<OCC); URINE BILIRUBIN NEGATIVE (NEGATIVE); URINE BLOOD NEGATIVE (NEGATIVE); URINE CLARITY Clear (Clear); URINE COLOR Yellow (YELLOW); URINE GLUCOSE (UA) NORMAL (Normal); URINE LEUKOCYTE ESTERASE NEG Leu/uL (Negative); URINE PROTEIN NEGATIVE (NEGATIVE); URINE UROBILINOGEN NORMAL mg/dL (0.2-1.0)
[2018-12-20 18:45] LABS: EOS % 1.6 % (0.0-4.0); LYMPH % 48.2 % (20.0-40.0); MEAN CORPUSCULAR HEMOGLOBIN 30.1 pg (27.0-31.0); MEAN CORPUSCULAR HGB CONC 33.5 g/dL (33.0-37.0); MEAN PLATELET VOLUME 7.1 fL (7.2-11.7); MONO # 0.3 K/uL (0.0-0.8); MONO % 9.8 % (0.0-10.0); NEUT % 39.4 % (50.0-75.0); NRBC % 0.4 % (0.0-2.0); RBC 3.33 Mil/uL (4.40-5.90); RED CELL DISTRIBUTION WIDTH 20.9 % (11.5-14.5); WHITE BLOOD COUNT 2.9 K/uL (4.8-10.8)
[2018-12-20 18:48] LABS: INR 1.1; MEAN CELL VOLUME 89.9 fL (80.0-94.0); PROTHROMBIN TIME 11.9 SECONDS (9.7-12.2)
[2018-12-20 18:51] LABS: ALB/GLOB RATIO 1.6 (1.0-2.1); ALBUMIN 4.4 g/dL (3.5-5.0); ALT/SGPT 113 U/L (21-72); AST/SGOT 343 U/L (17-59); BLOOD UREA NITROGEN 13 mg/dL (9-20); CALCIUM 8.7 mg/dl (8.6-10.4); GFR NON-AFRICAN AMERICAN > 60; LIPASE 518 U/L (23-300)
[2018-12-20 18:57] LABS: BARBITURATES, UR NEGATIVE (NEGATIVE); BENZODIAZEPINES, UR NEGATIVE (NEGATIVE); OPIATES, UR NEGATIVE (NEGATIVE); PHENCYCLIDINE, UR NEGATIVE (NEGATIVE)
[2018-12-20] MEDS ORDERED: Iohexol 350mg/ml 100 ML ONE ×2 (19:26→20:09)
[2018-12-20] MEDS ORDERED: Sodium Chloride 0.9% 500 ML IV ONE (20:30)
[2018-12-20] MEDS ORDERED: Sodium Chloride 0.9% 1,000 ML IV ONE (21:10)
[2018-12-20] MEDS ORDERED: Potassium Chloride 20 mEq ER Tab PO STA (23:08)
[2018-12-20] MEDS ORDERED: Potassium Chloride 20 mEq ER Tab PO ONE (23:30)
[2018-12-21 05:29] VITALS: BP 128/78; PULSE 100; RESP 22; TEMP 98.2; O2SAT 98
--- NOTE | 2018-12-21 06:52 | CT ---
Date of service: 12/20/2018 PROCEDURE: CT HEAD WITHOUT CONTRAST. HISTORY: HX ETOH ABUSE AND AB TRAUMA COMPARISON: Comparison is made with 11/09/2018 TECHNIQUE: Axial computed tomography images were obtained through the head/brain without intravenous contrast. Radiation dose: Total exam DLP = 1078.34 mGy-cm. This CT exam was performed using one or more of the following dose reduction techniques: Automated exposure control, adjustment of the mA and/or kV according to patient size, and/or use of iterative reconstruction technique. FINDINGS: HEMORRHAGE: No intracranial hemorrhage. BRAIN: No mass effect or edema. Mild atrophy and chronic microvascular white matter ischemic changes are again noted. VENTRICLES: Unremarkable. No hydrocephalus. CALVARIUM: Unremarkable. PARANASAL SINUSES: Unremarkable as visualized. No significant inflammatory changes. MASTOID AIR CELLS: Unremarkable as visualized. No inflammatory changes. OTHER FINDINGS: None. IMPRESSION: No evidence of acute intracranial hemorrhage mass effect or midline shift. Mild volume loss and chronic microvascular ischemic changes. Preliminary report contains concordant findings was submitted by [facility].
--- NOTE | 2018-12-21 07:00 | CT ---
Date of service: 12/20/2018 PROCEDURE: CT Abdomen and Pelvis with contrast HISTORY: ecchymosis right flank ?TRAUMA COMPARISON: Comparison is made with 11/08/2018 TECHNIQUE: Contrast dose: 100 mL of Omnipaque 350 intravenously. Axial and reformatted coronal and sagittal CT images of the abdomen and pelvis were obtained after IV contrast administration. Radiation dose: Total exam DLP = 769.62 mGy-cm. This CT exam was performed using one or more of the following dose reduction techniques: Automated exposure control, adjustment of the mA and/or kV according to patient size, and/or use of iterative reconstruction technique. FINDINGS: LOWER THORAX: Bibasilar atelectasis are noted. The heart is mildly enlarged. LIVER: Moderate to severe hepatic steatosis is again noted. The portal vein is patent. GALLBLADDER AND BILE DUCTS: No evidence of acute cholecystitis or radiodense gallstones PANCREAS: Unremarkable. No gross lesion or ductal dilatation. SPLEEN: Unremarkable. ADRENALS: Unremarkable. No mass. KIDNEYS AND URETERS: Mild dilatation of the collecting system of both kidneys is noted likely due to distended bladder. The kidneys enhance symmetrically. VASCULATURE: Unremarkable. No aortic aneurysm. No aortic atherosclerotic calcification or mural plaque present. BOWEL: Mild diffuse dilatation of the small bowel loops demonstrate mild diffuse wall thickening suspicious for enteritis. Mild constipation is noted. APPENDIX: Normal appendix. PERITONEUM: Unremarkable. No free fluid. No free air. LYMPH NODES: Unremarkable. No enlarged lymph nodes. BLADDER: Distended urinary bladder is noted. REPRODUCTIVE: Unremarkable. BONES: No acute fracture. OTHER FINDINGS: None. IMPRESSION: Findings suspicious for enteritis. Subcutaneous nodular opacities noted at the right lower back and right buttock associated with subcutaneous stranding of uncertain etiology, new compared to the prior study. Otherwise no significant interval changes since the previous exam. Preliminary report contains concordant findings was submitted by [employer] [facility].
--- NOTE | 2018-12-21 18:22 | CARD ---
APPROVED REPORT Date of service: 12/20/2018 EKG Measurement Heart [id number] CA [id number] <Conclusion> Normal sinus rhythm Nonspecific ST abnormality Abnormal ECG
== END 2018-12-21 05:53 | disposition home or self-care (01) ==
LOC: C.ER 16:18
DX: S30.1XXA Contusion of abdominal wall, initial encounter (principal); X58.XXXA Exposure to other specified factors, initial encounter; F10.129 Alcohol abuse with intoxication, unspecified; Y90.8 Blood alcohol level of 240 mg/100 ml or more; E87.6 Hypokalemia; I10 Essential (primary) hypertension
CPT/HCPCS: 70450; 74177; 80053; 80320; 80324; 80345; 80346; 80349; 80353; 80358; 80361; 81001; 82948; 83690; 83735; 83992; 85025; 85610; 85730; 93005; 96360; 99285; J3480; J7030; J7040; Q9967

== ENCOUNTER 2018-12-26 11:08 | Emergency (ER) | payer OTHER ==
--- NOTE | 2018-12-26 14:08 | RAD ---
PROCEDURE: Left Knee Radiographs. HISTORY: r/o fx COMPARISON: None available. FINDINGS: BONES: Osseous demineralization limits evaluation for acute fracture lines. No acute displaced fracture. JOINTS: No dislocation. Mild joint space narrowing consistent with degenerative changes. JOINT EFFUSION: Small to moderate suprapatellar joint effusion. OTHER FINDINGS: None. IMPRESSION: Small to moderate suprapatellar joint effusion. No acute displaced fracture or subluxation identified. If high clinical index of occult fracture recommend further evaluation with cross-sectional imaging. Osseous demineralization. Degenerative changes.
--- NOTE | 2018-12-26 14:21 | RAD ---
PROCEDURE: Left Ankle Radiographs. Three views. HISTORY: left ankle pain swelling COMPARISON: None available FINDINGS: BONES: No acute displaced fracture. JOINTS: No dislocation. SOFT TISSUES: Extensive soft tissue swelling. No evidence of radiopaque foreign body. OTHER FINDINGS: None. IMPRESSION: Extensive soft tissue swelling. No acute displaced fracture or dislocation identified. If symptoms persist or if there is clinical concern, x-ray follow-up in 7-10 days should be considered.
[2018-12-26 15:41] VITALS: BP 153/90; PULSE 70; RESP 18; TEMP 98; O2SAT 98
--- NOTE | 2018-12-26 16:13 | C.PDOC ---
History Of Present Illness 53 y/o male presents to the ER complaining of left leg pain and swelling which has been present for the past several weeks. Patient states that he has pain mainly in the left knee and ankle. Patient reports that he is able to ambulate without difficulty. Denies having trauma,falls,injuries, weakness, and numbness. Chief Complaint (Nursing): Lower Extremity Problem/Injury History Per: Patient History/Exam Limitations: no limitations Onset/Duration Of Symptoms: Days Current Symptoms Are (Timing): Still Present Severity: Moderate Past Medical History Reviewed: Historical Data, Nursing Documentation, Vital Signs Vital Signs: Last Vital Signs Temp 98 F 12/26/18 15:35 Pulse 70 12/26/18 15:35 Resp 18 12/26/18 15:35 BP 153/90 H 12/26/18 15:35 Pulse Ox 98 12/26/18 15:35 - Medical History PMH: Bipolar Disorder, Depression, Fractures, HTN, Paranoia, Seizures Denies: Diabetes, Hepatitis, HIV, Chronic Kidney Disease, Sexually Transmitted Disease Surgical History: Hernia Repair - [facility] Procedures DETOXIFICATION SERVICES FOR SUBSTANCE ABUSE TREATMENT (05/30/18) GROUP FORMING MACHINE UPKEEP MECHANIC FOR SUBSTANCE ABUSE TREATMENT, PSYCHOEDUCATION (05/30/18) GROUP FORMING MACHINE UPKEEP MECHANIC FOR SUBSTANCE ABUSE, COGNITIVE BEHAVIORAL (05/30/18) GROUP PSYCHOTHERAPY (05/30/18) INDIV PSYCHOTHERAPY FOR SUBSTANCE ABUSE TREATMENT, SUPPORT (05/30/18) INDIV PSYCHOTHERAPY FOR SUBSTANCE ABUSE, COGNITIV BEHAVIORAL (05/30/18) INDIV PSYCHOTHERAPY FOR SUBSTANCE ABUSE, PSYCHOEDUCATION (05/30/18) INDIVIDUAL PSYCHOTHERAPY, COGNITIVE-BEHAVIORAL (05/30/18) INDIVIDUAL PSYCHOTHERAPY, SUPPORTIVE (05/30/18) MEDICATION MANAGEMENT (01/27/18) Family History: States: No Known Family Hx - Social History Hx Tobacco Use: No (former smoker) Hx Alcohol Use: Yes Hx Substance Use: Yes - Immunization History Hx Tetanus Toxoid Vaccination: Yes Hx Influenza Vaccination: Yes Hx Pneumococcal Vaccination: No Review Of Systems Except As Marked, All Systems Reviewed And Found Negative. Musculoskeletal: Positive for: Leg Pain (left leg pain and swelling) Neurological: Negative for: Weakness, Numbness Physical Exam - Physical Exam Appears: Non-toxic, No Acute Distress Skin: Normal Color, Warm, Dry Head: Atraumatic, Normacephalic Eye(s): bilateral: Normal Inspection Nose: Normal Oral Mucosa: Moist Neck: Supple Chest: Symmetrical Extremity: Normal ROM, No Tenderness, No Calf Tenderness, Capillary Refill (< 2 seconds), Swelling (mild swelling to left knee and ankle) Pulses: Left Dorsalis Pedis: Normal Neurological/Psych: Oriented x3, Normal Speech ED Course And Treatment O2 Sat by Pulse Oximetry: 98 (RA) Pulse Ox Interpretation: Normal - Other Rad X-Ray-Left Knee X-Ray: Viewed By Me, Read By Radiologist Interpretation: PROCEDURE: Left Knee Radiographs. HISTORY: r/o fx. COMPARISON: None available. FINDINGS: BONES: Osseous demineralization limits evaluation for acute fracture lines. No acute displaced fracture. JOINTS: No dislocation. Mild joint space narrowing consistent with degenerative changes. JOINT EFFUSION: Small to moderate suprapatellar joint effusion. OTHER FINDINGS: None. IMPRESSION: Small to moderate suprapatellar joint effusion. No acute displaced fracture or subluxation identified. If high clinical index of occult fracture recommend further evaluation with cross-sectional imaging. Osseous demineralization. Degenerative changes. X-Ray-Left Ankle X-Ray: Viewed By Me, Read By Radiologist Interpretation: PROCEDURE: Left Ankle Radiographs. Three views. HISTORY: left ankle pain swelling. COMPARISON: None available. FINDINGS: BONES: No acute displaced fracture. JOINTS: No dislocation. SOFT TISSUES: Extensive soft tissue swelling. No evidence of radiopaque foreign body. OTHER FINDINGS: None. IMPRESSION: Extensive soft tissue swelling. No acute displaced fracture or dislocation identified. If symptoms persist or if there is clinical concern, x-ray follow-up in 7-10 days should be considered. Medical Decision Making Medical Decision Making: Plan: --Motrin PO --X-Ray-Left Knee --X-Ray-Left Ankle --Venous Duplex Scan- Low Ext. Lft. Disposition - Disposition Referrals: [facility] [Outside] [facility] [Outside] Disposition: HOME/ ROUTINE Disposition Time: 15:00 Condition: GOOD Additional Instructions: ALISA WAKEFIELD, thank you for letting us take care of you today. Your provider was Milo Tamez DO and you were treated for KNEE PAIN/SWELLING. The emergency medical care you received today was directed at your acute symptoms. If you were prescribed any medication, please fill it and take as directed. It may take several days for your symptoms to resolve. Return to the Emergency Department if your symptoms worsen, do not improve, or if you have any other problems. Please contact your doctor or call one of the physicians/clinics you have been referred to that are listed on the Patient Visit Information form that is included in your discharge packet. Bring any paperwork you were given at discharge with you along with any medications you are taking to your follow up visit. Our treatment cannot replace ongoing medical care by a primary care provider outside of the emergency department. Thank you for allowing the [facility] team to be part of your care today. Follow up with the clinic this week for re-evaluation and further management. Prescriptions: Ibuprofen [Motrin] 600 mg PO Q6 PRN #20 tab PRN Reason: Pain, Moderate (4-7) Instructions: Chronic Knee Pain (DC) Forms: [employer] (Occitan) - Clinical Impression Clinical Impression: Knee sprain - Scribe Statement The provider has reviewed the documentation as recorded by the Oliverioibclifton Ramírez Provider Attestation: All medical record entries made by the Scribe were at my direction and personally dictated by me. I have reviewed the chart and agree that the record accurately reflects my personal performance of the history, physical exam, medical decision making, and the department course for this patient. I have also personally directed, reviewed, and agree with the discharge instructions and disposition.
--- NOTE | 2018-12-27 11:14 | VASCLAB ---
Date of service: 12/26/2018 PROCEDURE: Left Lower Extremity Venous Duplex Exam. HISTORY: leg swelling r/o DVT PRIORS: None. TECHNIQUE: Left common femoral, femoral, popliteal and posterior tibial, peroneal and great saphenous veins were evaluated. Flow was assessed with color Doppler, compressibility, assessment of phasic flow and augmentation response. Report prepared by REGIS Veloz, RVT FINDINGS: LEFT: 1. Common Femoral Vein: 1.1. Compressibility - Fully compressible: Thrombus - None : Flow - Phasic: Augmentation -Normal: Reflux - None. 2. Femoral Vein: 2.1. Compressibility - Fully compressible: Thrombus - None: Flow - Phasic: Augmentation -Normal: Reflux - None. 3. Popliteal Vein: 3.1. Compressibility - Fully compressible: Thrombus - None: Flow - Phasic: Augmentation -Normal: Reflux - None. 4. Posterior Tibial Vein: 4.1. Compressibility - Fully compressible: Thrombus - None: Flow - Phasic: Augmentation -Normal: Reflux - None. 5. Peroneal Vein: 5.1. Compressibility - Fully compressible: Thrombus - None: Flow - Phasic: Augmentation -Normal: Reflux - None. 6. Great Saphenous Vein: 6.1. Compressibility - Fully compressible: Thrombus - None: Flow - Phasic: Augmentation - Normal: Reflux - None. OTHER FINDINGS: An anechoic irregular shaped non vascularized mass, was noted behind the left knee. Clinical correlation recommended. IMPRESSION: No evidence of deep or superficial vein thrombosis of the left lower extremity with excellent venous flow. Valvular incompetence of the left greater saphenous vein. Normal venous flow noted in the right common femoral vein.
== END 2018-12-26 15:40 | disposition home or self-care (01) ==
LOC: C.ER 11:08
DX: S83.92XA Sprain of unspecified site of left knee, initial encounter (principal); X58.XXXA Exposure to other specified factors, initial encounter

== ENCOUNTER → 2019-01-03 | Outpatient (CLI) | payer OTHER | END | disposition home or self-care (01) | LOC: C.VASC 13:39 | DX: M25.532 Pain in left wrist (principal) ==

== ENCOUNTER 2019-01-10 10:28 | Outpatient (CLI) | payer OTHER | END 2019-01-10 10:29 | disposition home or self-care (01) | LOC: C.USIC 10:29 ==